=== PATIENT | male | born 1950 | race Caucasian/White ===

== ENCOUNTER → 2020-02-19 13:10 | Outpatient (BNVA) | payer MEDICARE, MEDICAID, SELFPAY | PROVIDERS: PCP Emergency Medicine; Referring Provider Emergency Medicine; Visit Provider Nurse Practitioner Gerontology | DX: E11.65 Type 2 diabetes mellitus with hyperglycemia (principal); E11.21 Type 2 diabetes mellitus with diabetic nephropathy; E11.42 Type 2 diabetes mellitus with diabetic polyneuropathy; I10 Essential (primary) hypertension; E78.5 Hyperlipidemia, unspecified; Z79.4 Long term (current) use of insulin | CPT/HCPCS: 82947; 99212 ==

== ENCOUNTER → 2020-03-25 13:01 | Outpatient (BNVA) | payer MEDICARE, MEDICAID, SELFPAY | PROVIDERS: PCP Emergency Medicine; Referring Provider Emergency Medicine; Visit Provider Nurse Practitioner Gerontology | DX: E11.65 Type 2 diabetes mellitus with hyperglycemia (principal); E11.21 Type 2 diabetes mellitus with diabetic nephropathy; E11.42 Type 2 diabetes mellitus with diabetic polyneuropathy; E78.5 Hyperlipidemia, unspecified; I10 Essential (primary) hypertension | CPT/HCPCS: 82947; Q3014 ==

== ENCOUNTER → 2020-04-28 12:41 | Outpatient (BNVA) | payer MEDICARE, MEDICAID, SELFPAY | PROVIDERS: PCP Emergency Medicine; Visit Provider Nurse Practitioner Gerontology | DX: E11.65 Type 2 diabetes mellitus with hyperglycemia (principal); E11.21 Type 2 diabetes mellitus with diabetic nephropathy; E11.42 Type 2 diabetes mellitus with diabetic polyneuropathy; Z79.4 Long term (current) use of insulin; E78.5 Hyperlipidemia, unspecified; I10 Essential (primary) hypertension | CPT/HCPCS: 82947; Q3014 ==

== ENCOUNTER 2020-05-13 11:56 | Emergency (ER) | payer MEDICARE, MEDICAID, SELFPAY ==
[2020-05-13 12:31] VITALS: BP 83/49; PULSE 97; RESP 16; TEMP 37; O2SAT 98; BMI 26.4
--- NOTE | 2020-05-13 12:33 | ED.GENADULT ---
HPI - General Adult General Chief complaint: Nausea/Vomiting/Diarrhea <Gretel Seals NP - Last Filed: 05/13/20 12:37> Stated complaint: diarrhea <Gretel Seals NP - Last Filed: 05/13/20 12:37> Time Seen by Provider: 05/13/20 12:33 <Gretel Seals NP - Last Filed: 05/13/20 12:37> Source: patient <Fantasma Levin MD - Last Filed: 05/13/20 16:42> Mode of arrival: ambulatory <Fantasma Levin MD - Last Filed: 05/13/20 16:42> History of Present Illness HPI narrative: diarrhea with dark stools. 4 months ago he had endoscopy and colonoscopy with no active bleeding. Patient has a history of cirrhosis with ascites. Patient had a recent change in medications. <Fantasma Levin MD - Last Filed: 05/13/20 16:42> Onset (ago): week(s) <Fantasma Levin MD - Last Filed: 05/13/20 16:42> Related Data Home medications: Home Medications Medication Instructions Recorded Confirmed ascorbic acid (vitamin C) 500 mg 500 mg PO QAM 02/19/20 04/28/20 tablet aspirin 81 mg tablet,delayed 81 mg PO BEDTIME 02/19/20 04/28/20 release blood sugar diagnostic #10 ea 02/19/20 04/28/20 cholecalciferol (vitamin D3) 50 50 mcg PO QAM 02/19/20 04/28/20 mcg (2,000 unit) tablet empagliflozin 25 mg tablet 25 mg PO DAILY 02/19/20 04/28/20 ferrous sulfate 325 mg (65 mg 325 mg PO QAM 02/19/20 04/28/20 iron) tablet hydrocodone 5 mg-acetaminophen 325 1 tab PO Q8H PRN 02/19/20 04/28/20 mg tablet lancets 33 gauge #100 ea 02/19/20 04/28/20 lisinopril 20 1 tab PO QAM 02/19/20 04/28/20 mg-hydrochlorothiazide 25 mg tablet omeprazole 20 mg capsule,delayed 20 mg PO DAILY 02/19/20 04/28/20 release pen needle, diabetic 32 gauge x #50 ea 02/19/20 04/28/20 tamsulosin 0.4 mg capsule 0.4 mg PO DAILY 02/19/20 04/28/20 atorvastatin 40 mg tablet 40 mg PO tab 03/25/20 04/28/20 gabapentin 300 mg capsule 300 mg PO cap 04/28/20 04/28/20 pen needle, diabetic 31 gauge x #1200 ea 04/28/20 04/28/2009/07 Previous Rx's Medication Instructions Recorded blood-glucose meter #1 ea 02/19/20 pen needle, diabetic 32 gauge x #120 ea 04/30/20 insulin aspart U-100 100 unit/mL 4 unit SUBCUT TID 30 Days #15 ml 05/12/20 (3 mL) subcutaneous pen insulin glargine 100 unit/mL (3 12 unit SUBCUT DAILY 90 Days #15 ml 05/12/20 mL) subcutaneous pen <Gretel Seals NP - Last Filed: 05/13/20 12:37> Allergies/adverse reactions: Allergies Allergy/AdvReac Type Severity Reaction Status Date / Time No Known Allergies Allergy Verified 04/28/20 13:03 <Gretel Seals NP - Last Filed: 05/13/20 12:37> Review of Systems Constitutional: Constitutional: Reports no additional constitutional complaints <Fantasma Levin MD - Last Filed: 05/13/20 16:42> Eyes: Eyes: Reports no additional eye complaints <Fantasma Levin MD - Last Filed: 05/13/20 16:42> ENT: Denies dizziness <Fantasma Levin MD - Last Filed: 05/13/20 16:42> Cardiovascular: Cardiovascular: Reports no additional cardiovascular complaints <Fantasma Levin MD - Last Filed: 05/13/20 16:42> Respiratory: Respiratory: Reports as per HPI <Fantasma Levin MD - Last Filed: 05/13/20 16:42> Gastrointestinal: Gastrointestinal: Reports no additional gastrointestinal complaints <Fantasma Levin MD - Last Filed: 05/13/20 16:42> Musculoskeletal: Musculoskeletal: Reports no additional musculoskeletal complaints <Fantasma Levin MD - Last Filed: 05/13/20 16:42> Integumentary/Breasts: Skin/Breast: Denies rash <Fantasma Levin MD - Last Filed: 05/13/20 16:42> Neurologic: Reports system reviewed and no additional complaints, except as documented, Denies dizziness and Denies Sensory deficit (Neuro) <Fantasma Levin MD - Last Filed: 05/13/20 16:42> Psychiatric: Psychiatric: Denies anxiety <Fantasma Levin MD - Last Filed: 05/13/20 16:42> PMFSH Past Medical History Medical History: Medical History Essential hypertension GERD (gastroesophageal reflux disease) Hyperlipidemia LDL goal <100 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 Type 2 diabetes mellitus with hyperglycemia <Gretel Seals NP - Last Filed: 05/13/20 12:37> Surgical History: Surgical History History of liver biopsy <Gretel Seals NP - Last Filed: 05/13/20 12:37> Family History Family History: Family History Father Diabetes Mother Breast cancer Diabetes Cardiovascular disease Brother Diabetes Sister Diabetes <Gretel Seals NP - Last Filed: 05/13/20 12:37> Social History Social History: Social History (Updated 02/18/20 @ 09:58 by eHnrik Adames) Alcohol intake: never Smoking Status: Former smoker Smoked in Last 30 Days: No Use of substances other than those prescribed or required for medical reasons: No Advance Directives: No Advance Directives Information Provided: No <Gretel Seals NP - Last Filed: 05/13/20 12:37> Physical Exam Vital Signs: Vital Signs: Last Vital Signs Temp 98.6 F 05/13/20 12:31 Pulse 87 05/13/20 15:07 Resp 14 05/13/20 15:07 BP 102/57 L 05/13/20 15:07 Pulse Ox 97 05/13/20 15:07 Body Mass Index 26.4 <rGetel Seals NP - Last Filed: 05/13/20 12:37> Vital Signs: Last Vital Signs Temp 98.6 F 05/13/20 12:31 Pulse 87 05/13/20 15:07 Resp 14 05/13/20 15:07 BP 102/57 L 05/13/20 15:07 Pulse Ox 97 05/13/20 15:07 Body Mass Index 26.4 <Fantasma Levin MD - Last Filed: 05/13/20 16:42> Const: Other: male chronically ill, thin extremities with distended abdomen <Fantasma Levin MD - Last Filed: 05/13/20 16:42> Orientation/consciousness: oriented to person and patient oriented x3 <Fantasma Levin MD - Last Filed: 05/13/20 16:42> Limitations: no limitations <Fantasma Levin MD - Last Filed: 05/13/20 16:42> HENMT: Head: Yes normal to inspection <Fantasma Levin MD - Last Filed: 05/13/20 16:42> Ears: external ears normal <Fantasma Levin MD - Last Filed: 05/13/20 16:42> General nose exam: Normal external nose present <Fantasma Levin MD - Last Filed: 05/13/20 16:42> Mouth: Normal oral and palatal mucosa present and oropharynx normal <Fantasma Levin MD - Last Filed: 05/13/20 16:42> Throat: Yes posterior oropharynx normal <Fantasma Levin MD - Last Filed: 05/13/20 16:42> Eyes: General: appearance normal, both eyes and all related structures <Fantasma Levin MD - Last Filed: 05/13/20 16:42> Neck: Other: supple <Fantasma Levin MD - Last Filed: 05/13/20 16:42> Neck: Yes normal visual inspection <Fantasma Levin MD - Last Filed: 05/13/20 16:42> Chest: Chest palpation & inspection: normal inspection of the chest <Fantasma Levin MD - Last Filed: 05/13/20 16:42> Resp: Auscultation: clear to auscultation bilaterally <Fantasma Levin MD - Last Filed: 05/13/20 16:42> Cardio: Jugular venous distension: no JVD <Fantasma Levin MD - Last Filed: 05/13/20 16:42> Rate: regular rate <Fantasma Levin MD - Last Filed: 05/13/20 16:42> Rhythm: regular rhythm <Fnatasma Levin MD - Last Filed: 05/13/20 16:42> Heart sounds: S1 normal heart sound present and S2 normal heart sound present <Fantasma Levin MD - Last Filed: 05/13/20 16:42> GI: Other: distended abdomen with ascities <Fantasma Levin MD - Last Filed: 05/13/20 16:42> Palpation (GI): Soft to palpation, nontender and No hepatosplenomegaly present <Fantasma Levin MD - Last Filed: 05/13/20 16:42> Auscultation: normal bowel sounds <Fantasma Levin MD - Last Filed: 05/13/20 16:42> : General: Yes no CVA tenderness <Fantasma Levin MD - Last Filed: 05/13/20 16:42> Back/Spine/Pelvis: Back: no CVA tenderness <Fantasma Levin MD - Last Filed: 05/13/20 16:42> Skin: Other: spider angiomata with erythema <Fantasma Levin MD - Last Filed: 05/13/20 16:42> Neuro: General: oriented to person and patient oriented x3 <Fantasma Levin MD - Last Filed: 05/13/20 16:42> Cranial nerves: Yes CN's II-XII intact bilaterally <Fantasma Levin MD - Last Filed: 05/13/20 16:42> Motor exam (neuro): 5/5 motor strength present throughout <Fantasma Levin MD - Last Filed: 05/13/20 16:42> Sensory Exam: No Sensory deficit (Neuro) <Fantasma Levin MD - Last Filed: 05/13/20 16:42> Extrem: General: Yes normal to inspection <Fantasma Levin MD - Last Filed: 05/13/20 16:42> Psych: Appearance: grossly normal <Fantasma Levin MD - Last Filed: 05/13/20 16:42> Course Course Course Narrative: 1230-This is a rapid medical exam. 70 yo male with past medical history of DM, HLD, HTN here with diarrhea x 6 months. Feeling weak and dizzy, had near syncopal episode yesterday. Having 3-4 episodes a day. Diarrhea associated with abdominal pain, black stools. On iron tabs. Will check labs, EKG, type and screen. Deferred additional HPI, ROS, PE until seen by primary provider. <Gretel Seals NP - Last Filed: 05/13/20 12:37> spoke with endocrinology clinic who wanted the patient to have some hydration and insulin <Fantasma Levin MD - Last Filed: 05/13/20 16:42> Medical Decision Making [facility] Narrative Medical decision making narrative: patient with diarrhea now improved, slight dehydration by renal numbers and hyperglycemia, IV hydration and insulin given <Fantasma Levin MD - Last Filed: 05/13/20 16:42> Lab Data Result diagrams: : 05/13/20 13:08 05/13/20 13:08 <Gretel Seals NP - Last Filed: 05/13/20 12:37> Labs: Lab Results 05/13/20 05/13/20 05/13/20 Range/Units 13:08 13:08 13:08 WBC 7.6 (4.8-10.8) X10*3/uL RBC 3.00 L (4.60-5.80) X10*6/uL Hgb 8.2 L (14.0-18.0) g/dl Hct 26.4 L (42-52) % MCV 88.0 (80-98) fL MCH 27.3 (27.0-33.0) pg MCHC 31.1 (31.0-36.0) g/dl RDW 18.5 H (11.0-16.0) % Plt Count 395 (160-400) X10*3/uL MPV 10.2 (9.4-12.4) fL Immature Gran % (Auto) 0.4 (0.0-0.4) % Neut % (Auto) 78.1 H (45-73) % Lymph % (Auto) 13.0 L (20-40) % [place] % (Auto) 6.3 (2-11) % Eos % (Auto) 1.8 (0-4) % Baso % (Auto) 0.4 (0-2) % Lymph # (Auto) 1.0 L (1.2-4.9) X10*3/uL [place] # (Auto) 0.5 (0.1-1.2) X10*3/uL Eos # (Auto) 0.1 (0.0-0.4) X10*3/uL Baso # (Auto) 0.0 (0.0-0.2) X10*3/uL Abs Immat Gran (auto) 0.03 (0.00-0.03) X10*3/uL Absolute Neuts (auto) 5.9 (2.0-8.3) X10*3/uL Absolute Nucleated RBC 0.000 (0.0-0.012) X10*3/uL Nucleated RBC % (auto) 0.0 (0.0-0.2) /100WBC PT 13.1 H (10.8-13.0) SEC INR 1.1 (0.9-1.1) Sodium 136 (135-145) mmol/L Potassium 5.4 H (3.3-5.1) mmol/l Chloride 104 (96-108) mmol/L Carbon Dioxide 21 L (22-29) mmol/L Anion Gap 16 (12-20) BUN 36 H (9-16) mg/dL Creatinine 1.44 H (0.5-1.4) mg/dL Estim Creat Clear Calc 41.1 Estimated GFR 49 Random Glucose 301 H (60-115) mg/dL Calcium 8.9 (8.4-10.2) mg/dL Magnesium 2.6 (1.6-2.6) mg/dL Total Bilirubin 0.7 (0.0-1.0) mg/dL Direct Bilirubin 0.5 (0.0-0.5) mg/dL AST 103 H (5-37) U/L ALT 61 H (0-40) U/L Alkaline Phosphatase 729 H (39-117) U/L Total Protein 7.4 (6.5-8.0) g/dL Albumin 3.3 L (3.5-5.0) g/dL Blood Type Antibody Screen 05/13/20 Range/Units 13:08 WBC (4.8-10.8) X10*3/uL RBC (4.60-5.80) X10*6/uL Hgb (14.0-18.0) g/dl Hct (42-52) % MCV (80-98) fL MCH (27.0-33.0) pg MCHC (31.0-36.0) g/dl RDW (11.0-16.0) % Plt Count (160-400) X10*3/uL MPV (9.4-12.4) fL Immature Gran % (Auto) (0.0-0.4) % Neut % (Auto) (45-73) % Lymph % (Auto) (20-40) % [place] % (Auto) (2-11) % Eos % (Auto) (0-4) % Baso % (Auto) (0-2) % Lymph # (Auto) (1.2-4.9) X10*3/uL [place] # (Auto) (0.1-1.2) X10*3/uL Eos # (Auto) (0.0-0.4) X10*3/uL Baso # (Auto) (0.0-0.2) X10*3/uL Abs Immat Gran (auto) (0.00-0.03) X10*3/uL Absolute Neuts (auto) (2.0-8.3) X10*3/uL Absolute Nucleated RBC (0.0-0.012) X10*3/uL Nucleated RBC % (auto) (0.0-0.2) /100WBC PT (10.8-13.0) SEC INR (0.9-1.1) Sodium (135-145) mmol/L Potassium (3.3-5.1) mmol/l Chloride (96-108) mmol/L Carbon Dioxide (22-29) mmol/L Anion Gap (12-20) BUN (9-16) mg/dL Creatinine (0.5-1.4) mg/dL Estim Creat Clear Calc Estimated GFR Random Glucose (60-115) mg/dL Calcium (8.4-10.2) mg/dL Magnesium (1.6-2.6) mg/dL Total Bilirubin (0.0-1.0) mg/dL Direct Bilirubin (0.0-0.5) mg/dL AST (5-37) U/L ALT (0-40) U/L Alkaline Phosphatase (39-117) U/L Total Protein (6.5-8.0) g/dL Albumin (3.5-5.0) g/dL Blood Type O Positive Antibody Screen NEGATIVE <Gretel Seals NP - Last Filed: 05/13/20 12:37> Lab Results 05/13/20 05/13/20 05/13/20 Range/Units 13:08 13:08 13:08 WBC 7.6 (4.8-10.8) X10*3/uL RBC 3.00 L (4.60-5.80) X10*6/uL Hgb 8.2 L (14.0-18.0) g/dl Hct 26.4 L (42-52) % MCV 88.0 (80-98) fL MCH 27.3 (27.0-33.0) pg MCHC 31.1 (31.0-36.0) g/dl RDW 18.5 H (11.0-16.0) % Plt Count 395 (160-400) X10*3/uL MPV 10.2 (9.4-12.4) fL Immature Gran % (Auto) 0.4 (0.0-0.4) % Neut % (Auto) 78.1 H (45-73) % Lymph % (Auto) 13.0 L (20-40) % [place] % (Auto) 6.3 (2-11) % Eos % (Auto) 1.8 (0-4) % Baso % (Auto) 0.4 (0-2) % Lymph # (Auto) 1.0 L (1.2-4.9) X10*3/uL [place] # (Auto) 0.5 (0.1-1.2) X10*3/uL Eos # (Auto) 0.1 (0.0-0.4) X10*3/uL Baso # (Auto) 0.0 (0.0-0.2) X10*3/uL Abs Immat Gran (auto) 0.03 (0.00-0.03) X10*3/uL Absolute Neuts (auto) 5.9 (2.0-8.3) X10*3/uL Absolute Nucleated RBC 0.000 (0.0-0.012) X10*3/uL Nucleated RBC % (auto) 0.0 (0.0-0.2) /100WBC PT 13.1 H (10.8-13.0) SEC INR 1.1 (0.9-1.1) Sodium 136 (135-145) mmol/L Potassium 5.4 H (3.3-5.1) mmol/l Chloride 104 (96-108) mmol/L Carbon Dioxide 21 L (22-29) mmol/L Anion Gap 16 (12-20) BUN 36 H (9-16) mg/dL Creatinine 1.44 H (0.5-1.4) mg/dL Estim Creat Clear Calc 41.1 Estimated GFR 49 Random Glucose 301 H (60-115) mg/dL Calcium 8.9 (8.4-10.2) mg/dL Magnesium 2.6 (1.6-2.6) mg/dL Total Bilirubin 0.7 (0.0-1.0) mg/dL Direct Bilirubin 0.5 (0.0-0.5) mg/dL AST 103 H (5-37) U/L ALT 61 H (0-40) U/L Alkaline Phosphatase 729 H (39-117) U/L Total Protein 7.4 (6.5-8.0) g/dL Albumin 3.3 L (3.5-5.0) g/dL Blood Type Antibody Screen 05/13/20 Range/Units 13:08 WBC (4.8-10.8) X10*3/uL RBC (4.60-5.80) X10*6/uL Hgb (14.0-18.0) g/dl Hct (42-52) % MCV (80-98) fL MCH (27.0-33.0) pg MCHC (31.0-36.0) g/dl RDW (11.0-16.0) % Plt Count (160-400) X10*3/uL MPV (9.4-12.4) fL Immature Gran % (Auto) (0.0-0.4) % Neut % (Auto) (45-73) % Lymph % (Auto) (20-40) % [place] % (Auto) (2-11) % Eos % (Auto) (0-4) % Baso % (Auto) (0-2) % Lymph # (Auto) (1.2-4.9) X10*3/uL [place] # (Auto) (0.1-1.2) X10*3/uL Eos # (Auto) (0.0-0.4) X10*3/uL Baso # (Auto) (0.0-0.2) X10*3/uL Abs Immat Gran (auto) (0.00-0.03) X10*3/uL Absolute Neuts (auto) (2.0-8.3) X10*3/uL Absolute Nucleated RBC (0.0-0.012) X10*3/uL Nucleated RBC % (auto) (0.0-0.2) /100WBC PT (10.8-13.0) SEC INR (0.9-1.1) Sodium (135-145) mmol/L Potassium (3.3-5.1) mmol/l Chloride (96-108) mmol/L Carbon Dioxide (22-29) mmol/L Anion Gap (12-20) BUN (9-16) mg/dL Creatinine (0.5-1.4) mg/dL Estim Creat Clear Calc Estimated GFR Random Glucose (60-115) mg/dL Calcium (8.4-10.2) mg/dL Magnesium (1.6-2.6) mg/dL Total Bilirubin (0.0-1.0) mg/dL Direct Bilirubin (0.0-0.5) mg/dL AST (5-37) U/L ALT (0-40) U/L Alkaline Phosphatase (39-117) U/L Total Protein (6.5-8.0) g/dL Albumin (3.5-5.0) g/dL Blood Type O Positive Antibody Screen NEGATIVE <Fantasma Levin MD - Last Filed: 05/13/20 16:42> Discharge Plan Discharge Clinical Impression: Dehydration Type 2 diabetes mellitus with hyperglycemia Qualifiers: Diabetes mellitus correction insulin use: with correction use Qualified Code(s): E11.65 - Type 2 diabetes mellitus with hyperglycemia <Gretel Seals NP - Last Filed: 05/13/20 12:37> Patient Disposition: Home, Self-Care <Gretel Seals NP - Last Filed: 05/13/20 12:37> Instructions: Dehydration (ED), Diabetic Hyperglycemia (ED) <Gretel Seals NP - Last Filed: 05/13/20 12:37> Prescriptions: No Action (DME) pen needle, diabetic [BD Ultra-Fine Gerri Pen Needle] 32 gauge x 5/32 needle See Rx Instructions .ROUTE .MEDSUPPLY Qty: 120 RF: 3 insulin aspart U-100 [Novolog Flexpen U-100 Insulin] 100 unit/mL (3 mL) insulin pen 4 unit subcut TID 30 Days Qty: 15 RF: 2 insulin glargine 100 unit/mL (3 mL) insulin pen 12 unit subcut DAILY 90 Days Qty: 15 RF: 2 Jardiance 25 mg tablet 25 mg PO DAILY RF: 0 (DME) pen needle, diabetic 32 gauge x 5/32 needle See Rx Instructions ea .ROUTE .MEDSUPPLY Qty: 50 RF: 0 (DME) FreeStyle Lite Strips Strip See Rx Instructions ea Not Applicable .MEDSUPPLY Qty: 10 RF: 0 ferrous sulfate 325 mg (65 mg iron) tablet 325 mg PO QAM RF: 0 (DME) lancets 33 gauge misc See Rx Instructions ea Not Applicable .MEDSUPPLY Qty: 100 RF: 0 cholecalciferol (vitamin D3) 50 mcg (2,000 unit) tablet 50 mcg PO QAM RF: 0 lisinopril-hydrochlorothiazide 20-25 mg tablet 1 tab PO QAM RF: 0 omeprazole 20 mg capsule,delayed release(DR/EC) 20 mg PO DAILY RF: 0 tamsulosin 0.4 mg capsule 0.4 mg PO DAILY RF: 0 ascorbic acid (vitamin C) 500 mg tablet 500 mg PO QAM RF: 0 aspirin 81 mg tablet,delayed release (DR/EC) 81 mg PO BEDTIME RF: 0 hydrocodone-acetaminophen 5-325 mg tablet 1 tab PO Q8H PRN (Reason: pain) RF: 0 (DME) blood-glucose meter [FreeStyle Lite Meter] Kit See Rx Instructions .ROUTE .MEDSUPPLY Qty: 1 RF: 0 atorvastatin 40 mg tablet 40 mg PO RF: 0 gabapentin 300 mg capsule 300 mg PO RF: 0 (DME) pen needle, diabetic 31 gauge x 5/16 needle See Rx Instructions ea .ROUTE DAILY Qty: 1200 RF: 0 <Gretel Seals NP - Last Filed: 05/13/20 12:37> Referrals: Talia Hirsch, CAMILO-[facility] [Nurse Practitioner] - 2 days <Gretel Seals NP - Last Filed: 05/13/20 12:37>
--- NOTE | 2020-05-13 12:38 | ECG_ITS ---
Test Reason : SOB Blood Pressure : / mmHG Vent. Rate : 087 BPM Atrial Rate : 087 BPM P-R Int : 158 ms QRS Dur : 080 ms QT Int : 368 ms P-R-T Axes : 039 025 060 degrees QTc Int : 442 ms Normal sinus rhythm Normal ECG No previous ECGs available Referred By: Gretel Seals Electronically Signed By:DAVID CURTIS
[2020-05-13 13:14] LABS: MANUAL DIFF FLAG NO
[2020-05-13 13:17] LABS: Basophils Percent Auto 0.4 % (0-2); Eosinophils Absolute Auto 0.1 X10*3/uL (0.0-0.4); Eosinophils Percent Auto 1.8 % (0-4); Hematocrit 26.4 % (42-52); Hemoglobin 8.2 g/dl (14.0-18.0); Imm Gran Abs Auto 0.03 X10*3/uL (0.00-0.03); Imm Gran Pct Auto 0.4 % (0.0-0.4); Mean Corpuscular HGB Conc 31.1 g/dl (31.0-36.0); Mean Corpuscular Hemoglobin 27.3 pg (27.0-33.0); Mean Platelet Volume 10.2 fL (9.4-12.4); Monocytes Absolute Auto 0.5 X10*3/uL (0.1-1.2); Monocytes Percent Auto 6.3 % (2-11); Neutrophils Absolute Auto 5.9 X10*3/uL (2.0-8.3); Neutrophils Percent Auto 78.1 % (45-73); Platelet Count 395 X10*3/uL (160-400); Red Cell Distribution Width 18.5 % (11.0-16.0); White Blood Count 7.6 X10*3/uL (4.8-10.8)
[2020-05-13 13:25] LABS: INTERNATIONAL NORM RATIO 1.1 (0.9-1.1); Prothrombin Time 13.1 SEC (10.8-13.0)
[2020-05-13 13:51] LABS: Alanine Aminotransferase 61 U/L (0-40); Albumin Level 3.3 g/dL (3.5-5.0); Alkaline Phosphatase 729 U/L (39-117); Anion Gap 16 (12-20); Aspartate Amino Transferase 103 U/L (5-37); Bilirubin Direct 0.5 mg/dL (0.0-0.5); Bilirubin Total 0.7 mg/dL (0.0-1.0); Blood Urea Nitrogen 36 mg/dL (9-16); Calcium 8.9 mg/dL (8.4-10.2); Carbon Dioxide 21 mmol/L (22-29); Chloride 104 mmol/L (96-108); Creatinine Clr Calc Pharmacy 41.1; Estimated Glomerular Filt Rate 49; Glucose Random 301 mg/dL (60-115); Magnesium 2.6 mg/dL (1.6-2.6); Potassium 5.4 mmol/l (3.3-5.1); Sodium 136 mmol/L (135-145); Total Protein 7.4 g/dL (6.5-8.0)
[2020-05-13 15:07] VITALS: BP 102/57; PULSE 87; RESP 14; O2SAT 97
[2020-05-13] MEDS: Insulin Regular, Human 100 UNIT/ML 3 ML VIAL 6 UNIT SUBCUT (16:07)
[2020-05-13] MEDS: 0.9 % Sodium Chloride 1,000 ML 999 ML IVCONT (16:07)
== END 2020-05-13 17:10 | disposition home or self-care (01) ==
PROVIDERS: Nurse Practitioner Family; Emergency Provider Emergency Medicine
DX: E86.0 Dehydration (principal); E11.65 Type 2 diabetes mellitus with hyperglycemia; Z79.4 Long term (current) use of insulin; I10 Essential (primary) hypertension
CPT/HCPCS: 36415; 80048; 80076; 83735; 85025; 85610; 86850; 86900; 86901; 93005; 96360; 99284

== ENCOUNTER → 2020-05-16 09:30 | Outpatient (BNVA) | payer MEDICARE, MEDICAID, SELFPAY | PROVIDERS: Visit Provider Nurse Practitioner Gerontology | DX: Z76.89 Persons encountering health services in other specified circumstances (principal) | CPT/HCPCS: Q3014 ==

== ENCOUNTER → 2020-05-26 08:52 | Outpatient (BNVA) | payer MEDICARE, MEDICAID, SELFPAY | PROVIDERS: Visit Provider Nurse Practitioner Gerontology | DX: Z13.89 Encounter for screening for other disorder (principal) | CPT/HCPCS: Q3014 ==

== ENCOUNTER 2020-06-09 10:33 | Outpatient (REF) | payer MEDICARE, MEDICAID, SELFPAY ==
--- NOTE | ~2020-06-09 | US_ITS ---
EXAMINATION: US ABDOMEN LIMITED WITH LIVER ELASTOGRAPHY CLINICAL INFORMATION: Cirrhosis COMPARISON: Previous abdominal ultrasound November 2019 TECHNIQUE: Real-time imaging of the abdominal viscera. Noninvasive ultrasound liver fibrosis assessment is performed using Rodriguez ElastPQ point quantification shear wave elastography (pSWE) with a C5-2 MHz transducer. Multiple elastography samples are obtained. FINDINGS: PANCREAS: Normal. . LIVER: Liver is heterogeneous in echotexture. The liver contour to the liver is scalloped suggestive of cirrhosis. No focal liver lesion or biliary duct dilatation is seen. The right lobe measures 21 cm in length. The left lobe measures 15 cm in length. Portal flow is reversed/hepatofugal. There is hepatofugal flow seen in the extrahepatic portal vein, the main and right and left renal portal veins. Thrombus is seen in the portal splenic confluence/main portal vein and left portal vein. There is hepatofugal flow seen in the splenic vein. The spleen measures 8.3 cm in length. The middle right and left hepatic veins are patent with appropriate waveform. There is somewhat dampened flow in the IVC with loss of respiratory variation. The hepatic artery is not well visualized. Shear wave liver elastography median stiffness is 1.1 m/s (reference: normal median stiffness is 1.3 m/s or less). IQR/median stiffness to assess sampling precision is 1.8 (reference: good quality data set is IQR/median stiffness of 0.15 or less). Exam is nondiagnostic due to sampling error. GALLBLADDER: The gallbladder is contracted. The gallbladder wall is thickened measuring 4 mm. There are gallstones in the gallbladder. COMMON BILE DUCT: Normal in caliber measuring 0.4 cm in diameter. RIGHT KIDNEY: Normal. No hydronephrosis. No renal calculi or focal parenchymal lesions. The kidney measures 12 cm in maximum dimension. FREE FLUID: There is a small amount of ascites. US/US abdomen longoria w elastography IMPRESSION: 1. Impression: Cirrhotic-appearing liver. Thrombus seen in the left portal vein and main portal vein near the portal splenic confluence. Reversed hepatofugal flow seen in the portal veins and splenic vein. Small amount of ascites. Thickened gallbladder wall. This may be related to liver disease. Gallstones. 2. Liver elastography: Nondiagnostic due to sampling error.
[2020-06-09 12:53] LABS: Alanine Aminotransferase 67 U/L (0-40); Albumin Level 3.6 g/dL (3.5-5.0); Alkaline Phosphatase 749 U/L (39-117); Anion Gap 16 (12-20); Aspartate Amino Transferase 114 U/L (5-37); Bilirubin Total 0.7 mg/dL (0.0-1.0); Blood Urea Nitrogen 62 mg/dL (9-16); Calcium 9.3 mg/dL (8.4-10.2); Carbon Dioxide 17 mmol/L (22-29); Chloride 112 mmol/L (96-108); Cholesterol 204 mg/dL; Estimated Glomerular Filt Rate 43; Glucose Fasting 131 mg/dL (60-99); HDL Cholesterol 31 mg/dL; LDL Cholesterol Calculated 139 mg/dl; Potassium 5.5 mmol/L (3.3-5.1); Sodium 139 mmol/L (135-145); Total Protein 7.9 g/dL (6.5-8.0); Triglycerides 173 mg/dL
[2020-06-09 12:59] LABS: Creatinine Urine 164.13 mg/dL
== END 2020-06-09 10:34 | disposition home or self-care (01) ==
LOC: HO.US 10:33
PROVIDERS: Absent Provider Nurse Practitioner Gerontology; Visit Provider Physician Assistant
DX: K74.60 Unspecified cirrhosis of liver (principal); E11.9 Type 2 diabetes mellitus without complications; Z79.4 Long term (current) use of insulin
CPT/HCPCS: 36415; 76705; 76981; 80053; 80061; 82043

== ENCOUNTER 2020-06-13 22:26 | Inpatient (IN) | payer MEDICARE, MEDICAID, SELFPAY ==
--- NOTE | ~2020-06-13 | US_ITS ---
EXAMINATION: PARACENTESIS CLINICAL INFORMATION: Ascites COMPARISON: June 18, 2020. TECHNIQUE: Ultrasound-guided paracentesis FINDINGS: Informed consent was obtained from the patient prior to the procedure. During this process, the procedure and potential alternatives were explained, along with the intended outcome and benefits. The risks of the procedure, as well as the risk of not doing the procedure, were discussed. The patient was given the opportunity to ask questions regarding the procedure and appeared competent to make medical decisions. A signed consent form which documents this discussion was placed in the medical record. Using sterile technique and ultrasound guidance a 5 [place] needle sheath was directed into the right peritoneal cavity after checking for localization of the inferior epigastric vessels. A total of 3.5 L of clear yellow fluid was removed without difficulty. US/US paracentesis abd w/image IMPRESSION: Paracentesis with removal of 3.5 L of clear yellow fluid.
--- NOTE | ~2020-06-13 | CT_ITS ---
EXAMINATION: CT ABDOMEN AND PELVIS WITHOUT CONTRAST CLINICAL INFORMATION: Diffuse abdominal pain, worse at the right upper quadrant. Known left portal thrombus. COMPARISON: Ultrasound 06/09/2020 TECHNIQUE: Multidetector volumetric imaging was performed from the superior aspect of the liver through the pubic symphysis. Sagittal and coronal reformatted images were obtained on the technologist's workstation. This CT examination was performed using dose optimization techniques as appropriate, variously including the following: *Automated exposure control *Adjustment of mA and/or kV according to patient size (this includes techniques or standardized protocols for targeted exams where dose is matched to indication/reason for exam; i.e. extremities or head) *Use of iterative reconstruction technique DLP: 465 mGy-cm FINDINGS: LUNG BASES: The visualized lung bases are unremarkable. LIVER, GALLBLADDER, AND BILIARY TREE: Nodular Contour of the liver. Normal size and attenuation. No focal liver lesion seen. Small volume of ascites. The gallbladder is unremarkable with no evidence of radiopaque gallstones, gallbladder wall thickening, or obvious pericholecystic inflammatory changes. PANCREAS: Mild atrophy with no focal lesion. Stranding is seen in the region of the pancreas. SPLEEN: Unremarkable. ADRENAL GLANDS: Unremarkable. KIDNEYS AND URETERS: The kidneys are normal in size, shape, and attenuation. No hydronephrosis or hydroureter. There is a calculus measuring 0.8 cm at the upper pole of the left kidney could be a cortical calcification rather than in the collecting system. This measures 920 Hounsfield units and is 4.5 cm from the posterior axillary line. No perinephric stranding. BLADDER: Unremarkable. GASTROINTESTINAL TRACT: Small hiatal hernia. The stomach is otherwise unremarkable. Normal caliber small bowel. No obstruction. No colonic wall thickening. No free air. Small volume ascites. ABDOMINAL WALL: No significant hernia is appreciated. LYMPH NODES: Normal. VASCULAR: Normal caliber aorta with mild atherosclerotic calcification. PELVIC VISCERA: The prostate and seminal vesicles are unremarkable. OSSEOUS STRUCTURES: No acute or suspicious osseous abnormality. Mild degenerative changes of the spine. Fused appearance at the T10 and T11 vertebral bodies with anterior wedging. CT/CT abdomen pelvis wo con IMPRESSION: Cirrhotic liver. Small volume ascites. Stranding is seen in the region of the pancreas. While this may be associated with the ascites, correlate for possibility of pancreatitis.
--- NOTE | ~2020-06-13 | US_ITS ---
EXAMINATION: US ABDOMEN LIMITED US SMA CLINICAL INFORMATION: Abdominal pain. COMPARISON: CT abdomen without contrast from 06/14/2020. Abdomen ultrasound from 06/09/2020. TECHNIQUE: Real-time imaging of the right upper quadrant abdominal viscera. Also, duplex Doppler imaging of the SMA performed. FINDINGS: PANCREAS: The atrophied pancreas is echogenic. No focal pancreatic lesion or pancreatic ductal dilatation. LIVER: The cirrhotic liver has slightly heterogeneous parenchymal echotexture and nodular, lobulated surface contour. No focal hepatic lesion or intrahepatic bile duct dilatation. Bidirectional flow is detected in the main portal vein. Again noted is echogenic thrombus involving the left portal vein. No thrombus detected in the right portal vein. Although Doppler flow is detected in the splenic vein, no flow is detected in the region of the splenic-portal vein confluence, as reported on 06/09/2020. GALLBLADDER: Gallbladder is underdistended and its wall is approximately 0.5 cm thick . No pericholecystic fluid. COMMON BILE DUCT: Normal in caliber measuring 0.4 cm in diameter. RIGHT KIDNEY: Normal. No hydronephrosis. No renal calculi or focal parenchymal lesions. The kidney measures 11.2 cm in maximum dimension. FREE FLUID: None. AORTA/VESSELS: Proximal to the origin of the SMA, abdominal aorta has normal flow with peak systolic velocity of 91 cm/sec. The visualized proximal celiac artery has a peak systolic velocity in the range of 172-252 cm/sec. The visualized proximal, mid and distal SMA have peak systolic velocities of 137, 89 and 225 cm/sec. US/US abdomen limited IMPRESSION: * Cirrhosis. * As noted on 06/09/2020, there is thrombosis involving left portal vein and region of confluence of the splenic and main portal vein. * No Doppler imaging evidence of a significant SMA stenosis. * Peak systolic velocities of the celiac artery are in the range of 172-252 cm/sec. 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
[2020-06-13 22:47] VITALS: BP 92/43; BP 93/49; PULSE 116; PULSE 117; RESP 15; TEMP 36.5; O2SAT 100; BMI 25.8
--- NOTE | 2020-06-13 22:55 | PC.NURSE ---
pt abd round distended pain to right flank per pt 5/10. abd soft tender to palpation, pt extremities cool to touch.
[2020-06-13 22:59] LABS: Glucose, Whole Blood 330 mg/dL (60-115)
--- NOTE | 2020-06-13 23:16 | ED_ITS ---
HPI - GI Bleed General Chief complaint: GI Bleed Stated complaint: RECTAL BLEED Time Seen by Provider: 06/13/20 23:00 Source: patient Mode of arrival: EMS Limitations: other (Poor historian) History of Present Illness HPI Narrative: Patient comes to emergency room complaining of diffuse abdominal pain and rectal bleeding. Patient is poor historian. Patient states that he had an endoscopy done a few months ago, and seems that recently he had rectal bleeding, went to [facility] approximately 2-3 weeks ago, was discharged. Patient reports rectal bleeding for 2-3 days, diffuse abdominal pain, nausea, denies diarrhea. EMS reported the patient complained of rectal bleeding starting today, patient states that he has had black stool arm for several months, states he has been red blood for several days. Unfortunately, patient is poor historian, his reported history keeps changing. Of note, patient had an upper endoscopy in October 2019, showing gastritis, duodenitis, small versus, colonoscopy on the same date showed hemorrhoids and polyps Liver elastography 06/09/20:Cirrhotic-appearing liver. Thrombus seen in the left portal vein and main portal vein near the portal splenic confluence. Reversed hepatofugal flow seen in the portal veins and splenic vein. Small amount of ascites. Thickened gallbladder wall. This may be related to liver disease. Gallstones. Related Data Home Medications Medication Instructions Recorded Confirmed ascorbic acid (vitamin C) 500 mg 500 mg PO QAM 02/19/20 05/26/20 tablet aspirin 81 mg tablet,delayed 81 mg PO BEDTIME 02/19/20 05/26/20 release blood sugar diagnostic #10 ea 02/19/20 05/26/20 cholecalciferol (vitamin D3) 50 50 mcg PO QAM 02/19/20 05/26/20 mcg (2,000 unit) tablet ferrous sulfate 325 mg (65 mg 325 mg PO QAM 02/19/20 05/26/20 iron) tablet hydrocodone 5 mg-acetaminophen 325 1 tab PO Q8H PRN 02/19/20 05/26/20 mg tablet lancets 33 gauge #100 ea 02/19/20 05/26/20 lisinopril 20 1 tab PO QAM 02/19/20 05/26/20 mg-hydrochlorothiazide 25 mg tablet omeprazole 20 mg capsule,delayed 20 mg PO DAILY 02/19/20 05/26/20 release pen needle, diabetic 32 gauge x #50 ea 02/19/20 05/26/20 tamsulosin 0.4 mg capsule 0.4 mg PO DAILY 02/19/20 05/26/20 atorvastatin 40 mg tablet 40 mg PO tab 03/25/20 05/26/20 gabapentin 300 mg capsule 300 mg PO cap 04/28/20 05/26/20 pen needle, diabetic 31 gauge x #1200 ea 04/28/20 05/26/2009/07 Previous Rx's Medication Instructions Recorded blood-glucose meter #1 ea 02/19/20 pen needle, diabetic 32 gauge x #120 ea 04/30/20 insulin glargine 100 unit/mL (3 8 unit SUBCUT DAILY 90 Days #15 ml 05/26/20 mL) subcutaneous pen insulin lispro 100 unit/mL 2 unit SUBCUT TID #15 ml 05/26/20 subcutaneous pen empagliflozin 25 mg tablet 25 mg PO QAM #30 tab 06/08/20 Allergies Allergy/AdvReac Type Severity Reaction Status Date / Time No Known Allergies Allergy Verified 05/26/20 10:49 Review of Systems Review of Systems: Constitutional : Complaining fatigue, malaise ENT/Mouth : No Hearing loss, No Ear Pain, No Nasal Congestion, No Sinus Pain, No Hoarseness, No sore throat, No Rhinorrhea, No Swallowing Difficulty Eyes: No Eye Pain, No Swelling, No Redness, No Foreign Body, No Discharge, No Vision Changes Cardiovascular : No Chest Pain, No SOB, No Dyspnea on Exertion, No Orthopnea, No Edema, No Palpitations Respiratory : No Cough, No Sputum, No Wheezing, No Smoke Exposure, No Dyspnea Gastrointestinal : Complaining of nausea, no vomiting, no diarrhea. Complaining of bright red blood per rectum. Genitourinary : no irregular bleeding, No Dysuria, No Urinary Frequency, No Hematuria, No Urinary Incontinence, No Urgency, No Flank Pain, No Urinary Flow Changes, No Hesitancy Musculoskeletal : No joint pain, No Myalgias, No Joint Swelling Skin : No Skin Lesions, No rash Neuro : No Weakness, No Numbness, No Paresthesias, No Loss of Consciousness, No Dizziness, No Headache Psych : No Anxiety/Panic, No Depression, No SI/HI/AH/VH, No Social Issues, Heme/Lymph: No Bruising, No Bleeding,No Lymphadenopathy Endocrine : No Polyuria, No Polydipsia, No Temperature Intolerance [facility] Past Medical History Medical History Essential hypertension GERD (gastroesophageal reflux disease) Hyperlipidemia LDL goal <100 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 Type 2 diabetes mellitus with hyperglycemia Surgical History History of liver biopsy Family History Family History Father Diabetes Mother Breast cancer Diabetes Cardiovascular disease Brother Diabetes Sister Diabetes Social History Social History (Updated 05/16/20 @ 09:31 by Henrik Adames [facility]) Household Members: Other Alcohol intake: never Smoking Status: Former smoker Advance Directives: No Physical Exam Vital Signs: Vital Signs: Last Vital Signs Temp 97.7 F 06/14/20 03:00 Pulse 110 H 06/14/20 03:00 Resp 16 06/14/20 03:00 BP 108/57 L 06/14/20 03:00 Pulse Ox 100 06/14/20 02:00 Body Mass Index 25.8 Appearance: Alert. Oriented X3. No acute distress. Eyes: Pupils equal, round and reactive to light. ENT: Pharynx normal. Neck: Normal inspection. Neck supple. No lymph nodes noted. No crepitus CVS: Tachycardic. Normal S1 and S2 Respiratory: No respiratory distress. Breath sounds normal. No Wheezing. No rales Abdomen: Soft , slightly distended, mild diffuse abdominal tenderness on deep palpation, most notably on right upper quadrant, black stool on ESTEFANI Skin: Skin warm and dry. Pale Extremities: No lower extremity edema. No lower extremity edema. No Lacerations . No Rash Neuro: Oriented X 3. No motor deficit. No sensory deficit. Moving all extermities. No slurred speech. Course Course Course Narrative: Patient's hemoglobin is 5.3. Patient states he has been transfused in the past. I discussed with the patient the benefits versus risks of blood transfusion, patient agrees to the transfusion. I discussed the patient with our hospitalist Dr. Sumner, patient being admitted. MDM - GI Bleed Lab Data Result diagrams: 06/14/20 01:43 06/14/20 01:43 Labs: Lab Results 06/13/20 06/14/20 06/14/20 Range/Units 22:54 00:10 00:10 WBC (4.8-10.8) X10*3/uL RBC (4.60-5.80) X10*6/uL Hgb (14.0-18.0) g/dl Hct (42-52) % MCV (80-98) fL MCH (27.0-33.0) pg MCHC (31.0-36.0) g/dl RDW (11.0-16.0) % Plt Count (160-400) X10*3/uL MPV (9.4-12.4) fL Immature Gran % (Auto) (0.0-0.4) % Neut % (Auto) (45-73) % Lymph % (Auto) (20-40) % [place] % (Auto) (2-11) % Eos % (Auto) (0-4) % Baso % (Auto) (0-2) % Lymph # (Auto) (1.2-4.9) X10*3/uL [place] # (Auto) (0.1-1.2) X10*3/uL Eos # (Auto) (0.0-0.4) X10*3/uL Baso # (Auto) (0.0-0.2) X10*3/uL Abs Immat Gran (auto) (0.00-0.03) X10*3/uL Absolute Neuts (auto) (2.0-8.3) X10*3/uL Absolute Nucleated RBC (0.0-0.012) X10*3/uL Nucleated RBC % (auto) (0.0-0.2) /100WBC PT (10.8-13.0) SEC INR (0.9-1.1) VBG pH (7.32-7.43) VBG pCO2 mmHg VBG pO2 mmHg VBG HCO3 mmol/L VBG O2 Saturation % VBG Base Excess mmol/L Sodium (135-145) mmol/L Potassium (3.3-5.1) mmol/L Chloride (96-108) mmol/L Carbon Dioxide (22-29) mmol/L Anion Gap (12-20) BUN (9-16) mg/dL Creatinine (0.5-1.4) mg/dL Estim Creat Clear Calc Estimated GFR POC Glucose 330 H (60-115) mg/dL Random Glucose (60-115) mg/dL Calcium (8.4-10.2) mg/dL Total Bilirubin (0.0-1.0) mg/dL Direct Bilirubin (0.0-0.5) mg/dL AST (5-37) U/L ALT (0-40) U/L Alkaline Phosphatase (39-117) U/L Total Protein (6.5-8.0) g/dL Albumin (3.5-5.0) g/dL Stool Occult Blood POS (NEG) Urine Opiates Screen (Not Detect) Ur Barbiturates Screen (Not Detect) Ur Phencyclidine Scrn (Not Detect) Ur Amphetamines Screen (Not Detect) U Benzodiazepines Scrn (Not Detect) Urine Cocaine Screen (Not Detect) U Marijuana (THC) Screen (Not Detect) Ethyl Alcohol mg/dL COVID-19 (LUIZ) Negative (Negative) COVID-19 Clin Com See Note Blood Type Antibody Screen Crossmatch 06/14/20 06/14/20 06/14/20 Range/Units 00:17 00:17 00:17 WBC 8.6 (4.8-10.8) X10*3/uL RBC 1.87 L D (4.60-5.80) X10*6/uL Hgb 5.3 L* D (14.0-18.0) g/dl Hct 17.4 L* D (42-52) % MCV 93.0 (80-98) fL MCH 28.3 (27.0-33.0) pg MCHC 30.5 L (31.0-36.0) g/dl RDW 19.3 H (11.0-16.0) % Plt Count 285 D (160-400) X10*3/uL MPV 10.8 (9.4-12.4) fL Immature Gran % (Auto) 0.5 H (0.0-0.4) % Neut % (Auto) 84.0 H (45-73) % Lymph % (Auto) 12.0 L (20-40) % [place] % (Auto) 3.4 (2-11) % Eos % (Auto) 0.0 (0-4) % Baso % (Auto) 0.1 (0-2) % Lymph # (Auto) 1.0 L (1.2-4.9) X10*3/uL [place] # (Auto) 0.3 (0.1-1.2) X10*3/uL Eos # (Auto) 0.0 (0.0-0.4) X10*3/uL Baso # (Auto) 0.0 (0.0-0.2) X10*3/uL Abs Immat Gran (auto) 0.04 H (0.00-0.03) X10*3/uL Absolute Neuts (auto) 7.2 (2.0-8.3) X10*3/uL Absolute Nucleated RBC 0.000 (0.0-0.012) X10*3/uL Nucleated RBC % (auto) 0.0 (0.0-0.2) /100WBC PT 16.1 H D (10.8-13.0) SEC INR 1.4 H (0.9-1.1) VBG pH (7.32-7.43) VBG pCO2 mmHg VBG pO2 mmHg VBG HCO3 mmol/L VBG O2 Saturation % VBG Base Excess mmol/L Sodium 143 (135-145) mmol/L Potassium 6.8 H* D (3.3-5.1) mmol/L Chloride 117 H (96-108) mmol/L Carbon Dioxide 10 L* D (22-29) mmol/L Anion Gap 23 H (12-20) BUN 115 H* D (9-16) mg/dL Creatinine 1.82 H (0.5-1.4) mg/dL Estim Creat Clear Calc 31.2 Estimated GFR 37 POC Glucose (60-115) mg/dL Random Glucose 446 H* (60-115) mg/dL Calcium 8.6 D (8.4-10.2) mg/dL Total Bilirubin 0.6 (0.0-1.0) mg/dL Direct Bilirubin 0.4 (0.0-0.5) mg/dL AST 67 H (5-37) U/L ALT 44 H (0-40) U/L Alkaline Phosphatase 486 H D (39-117) U/L Total Protein 5.9 L D (6.5-8.0) g/dL Albumin 2.8 L D (3.5-5.0) g/dL Stool Occult Blood (NEG) Urine Opiates Screen (Not Detect) Ur Barbiturates Screen (Not Detect) Ur Phencyclidine Scrn (Not Detect) Ur Amphetamines Screen (Not Detect) U Benzodiazepines Scrn (Not Detect) Urine Cocaine Screen (Not Detect) U Marijuana (THC) Screen (Not Detect) Ethyl Alcohol mg/dL COVID-19 (LUIZ) (Negative) COVID-19 Clin Com Blood Type Antibody Screen Crossmatch 06/14/20 06/14/20 06/14/20 Range/Units 00:17 01:43 01:43 WBC 8.0 (4.8-10.8) X10*3/uL RBC 1.78 L (4.60-5.80) X10*6/uL Hgb 5.0 L* (14.0-18.0) g/dl Hct 16.7 L* (42-52) % MCV 93.8 (80-98) fL MCH 28.1 (27.0-33.0) pg MCHC 29.9 L (31.0-36.0) g/dl RDW 19.5 H (11.0-16.0) % Plt Count 265 (160-400) X10*3/uL MPV 11.0 (9.4-12.4) fL Immature Gran % (Auto) 0.4 (0.0-0.4) % Neut % (Auto) 84.4 H (45-73) % Lymph % (Auto) 13.0 L (20-40) % [place] % (Auto) 2.1 (2-11) % Eos % (Auto) 0.0 (0-4) % Baso % (Auto) 0.1 (0-2) % Lymph # (Auto) 1.0 L (1.2-4.9) X10*3/uL [place] # (Auto) 0.2 (0.1-1.2) X10*3/uL Eos # (Auto) 0.0 (0.0-0.4) X10*3/uL Baso # (Auto) 0.0 (0.0-0.2) X10*3/uL Abs Immat Gran (auto) 0.03 (0.00-0.03) X10*3/uL Absolute Neuts (auto) 6.8 (2.0-8.3) X10*3/uL Absolute Nucleated RBC 0.000 (0.0-0.012) X10*3/uL Nucleated RBC % (auto) 0.0 (0.0-0.2) /100WBC PT (10.8-13.0) SEC INR (0.9-1.1) VBG pH (7.32-7.43) VBG pCO2 mmHg VBG pO2 mmHg VBG HCO3 mmol/L VBG O2 Saturation % VBG Base Excess mmol/L Sodium (135-145) mmol/L Potassium (3.3-5.1) mmol/L Chloride (96-108) mmol/L Carbon Dioxide (22-29) mmol/L Anion Gap (12-20) BUN (9-16) mg/dL Creatinine (0.5-1.4) mg/dL Estim Creat Clear Calc Estimated GFR POC Glucose (60-115) mg/dL Random Glucose (60-115) mg/dL Calcium (8.4-10.2) mg/dL Total Bilirubin (0.0-1.0) mg/dL Direct Bilirubin (0.0-0.5) mg/dL AST (5-37) U/L ALT (0-40) U/L Alkaline Phosphatase (39-117) U/L Total Protein (6.5-8.0) g/dL Albumin (3.5-5.0) g/dL Stool Occult Blood (NEG) Urine Opiates Screen (Not Detect) Ur Barbiturates Screen (Not Detect) Ur Phencyclidine Scrn (Not Detect) Ur Amphetamines Screen (Not Detect) U Benzodiazepines Scrn (Not Detect) Urine Cocaine Screen (Not Detect) U Marijuana (THC) Screen (Not Detect) Ethyl Alcohol < 10 mg/dL COVID-19 (LUIZ) (Negative) COVID-19 Clin Com Blood Type O Positive Antibody Screen NEGATIVE Crossmatch See Detail 06/14/20 06/14/20 06/14/20 Range/Units 01:43 02:51 03:23 WBC (4.8-10.8) X10*3/uL RBC (4.60-5.80) X10*6/uL Hgb (14.0-18.0) g/dl Hct (42-52) % MCV (80-98) fL MCH (27.0-33.0) pg MCHC (31.0-36.0) g/dl RDW (11.0-16.0) % Plt Count (160-400) X10*3/uL MPV (9.4-12.4) fL Immature Gran % (Auto) (0.0-0.4) % Neut % (Auto) (45-73) % Lymph % (Auto) (20-40) % [place] % (Auto) (2-11) % Eos % (Auto) (0-4) % Baso % (Auto) (0-2) % Lymph # (Auto) (1.2-4.9) X10*3/uL [place] # (Auto) (0.1-1.2) X10*3/uL Eos # (Auto) (0.0-0.4) X10*3/uL Baso # (Auto) (0.0-0.2) X10*3/uL Abs Immat Gran (auto) (0.00-0.03) X10*3/uL Absolute Neuts (auto) (2.0-8.3) X10*3/uL Absolute Nucleated RBC (0.0-0.012) X10*3/uL Nucleated RBC % (auto) (0.0-0.2) /100WBC PT (10.8-13.0) SEC INR (0.9-1.1) VBG pH 7.49 H (7.32-7.43) VBG pCO2 12 mmHg VBG pO2 230 mmHg VBG HCO3 9 mmol/L VBG O2 Saturation 99.0 % VBG Base Excess -12.6 mmol/L Sodium 143 (135-145) mmol/L Potassium 6.3 H* (3.3-5.1) mmol/L Chloride 120 H (96-108) mmol/L Carbon Dioxide 11 L (22-29) mmol/L Anion Gap 18 (12-20) BUN 112 H* (9-16) mg/dL Creatinine 1.67 H (0.5-1.4) mg/dL Estim Creat Clear Calc 34.0 Estimated GFR 41 POC Glucose (60-115) mg/dL Random Glucose 410 H* (60-115) mg/dL Calcium 8.3 L (8.4-10.2) mg/dL Total Bilirubin (0.0-1.0) mg/dL Direct Bilirubin (0.0-0.5) mg/dL AST (5-37) U/L ALT (0-40) U/L Alkaline Phosphatase (39-117) U/L Total Protein (6.5-8.0) g/dL Albumin (3.5-5.0) g/dL Stool Occult Blood (NEG) Urine Opiates Screen Not Detected (Not Detect) Ur Barbiturates Screen Not Detected (Not Detect) Ur Phencyclidine Scrn Not Detected (Not Detect) Ur Amphetamines Screen Not Detected (Not Detect) U Benzodiazepines Scrn Not Detected (Not Detect) Urine Cocaine Screen Not Detected (Not Detect) U Marijuana (THC) Screen Not Detected (Not Detect) Ethyl Alcohol mg/dL COVID-19 (LUIZ) (Negative) COVID-19 Clin Com Blood Type Antibody Screen Crossmatch ECG Data Attestation: I personally reviewed and interpreted this ECG as follows: (Heart rate 116, sinus rhythm, no ST segment depression or elevation, nonspecific T- wave abnormality. No peaked T-wave, QTC 444, low-voltage EKG) Discharge Plan Discharge Clinical Impression: Acute hyperkalemia, Acute hyperglycemia, Acute upper GI bleed Anemia Qualifiers: Anemia type: unspecified type Qualified Code(s): D64.9 - Anemia, unspecified Patient Disposition: Admitted As Inpatient
[2020-06-13] MEDS: 0.9 % Sodium Chloride 1,000 ML 999 ML IVCONT (23:44)
[2020-06-14] VITALS (29 sets, daily range): BP systolic 86–135; BP diastolic 45–70; PULSE 98–115; RESP 10–20; TEMP 36.3–36.9; O2SAT 97–100
[2020-06-14] MEDS: ondansetron HCL 4 MG/2 ML VIAL IVPUSH (00:03)
[2020-06-14 00:24] LABS: Basophils Percent Auto 0.1 % (0-2); Imm Gran Abs Auto 0.04 X10*3/uL (0.00-0.03); Imm Gran Pct Auto 0.5 % (0.0-0.4); MANUAL DIFF FLAG NO; Mean Corpuscular HGB Conc 30.5 g/dl (31.0-36.0); Mean Corpuscular Hemoglobin 28.3 pg (27.0-33.0); Mean Platelet Volume 10.8 fL (9.4-12.4); Monocytes Absolute Auto 0.3 X10*3/uL (0.1-1.2); Monocytes Percent Auto 3.4 % (2-11); Neutrophils Absolute Auto 7.2 X10*3/uL (2.0-8.3); Platelet Count 285 X10*3/uL (160-400); Red Blood Count 1.87 X10*6/uL (4.60-5.80); Red Cell Distribution Width 19.3 % (11.0-16.0); White Blood Count 8.6 X10*3/uL (4.8-10.8)
[2020-06-14 00:26] LABS: Hematocrit 17.4 % (42-52)
[2020-06-14 00:28] LABS: Hemoglobin 5.3 g/dl (14.0-18.0)
[2020-06-14 00:31] LABS: OBS Int Ctl Valid YES; OBS1 POS (NEG)
[2020-06-14 00:35] LABS: COVID-19 Test Negative (Negative); IDNOW Serial# 9DD0AD1C
[2020-06-14 00:36] LABS: INTERNATIONAL NORM RATIO 1.4 (0.9-1.1); Prothrombin Time 16.1 SEC (10.8-13.0)
[2020-06-14 00:49] LABS: Ethanol < 10 mg/dL
[2020-06-14 01:12] LABS: Alanine Aminotransferase 44 U/L (0-40); Albumin Level 2.8 g/dL (3.5-5.0); Alkaline Phosphatase 486 U/L (39-117); Anion Gap 23 (12-20); Aspartate Amino Transferase 67 U/L (5-37); Bilirubin Direct 0.4 mg/dL (0.0-0.5); Bilirubin Total 0.6 mg/dL (0.0-1.0); Blood Urea Nitrogen 115 mg/dL (9-16); Calcium 8.6 mg/dL (8.4-10.2); Carbon Dioxide 10 mmol/L (22-29); Chloride 117 mmol/L (96-108); Creatinine Clr Calc Pharmacy 31.2; Estimated Glomerular Filt Rate 37; Glucose Random 446 mg/dL (60-115); Potassium 6.8 mmol/L (3.3-5.1); Sodium 143 mmol/L (135-145); Total Protein 5.9 g/dL (6.5-8.0)
[2020-06-14] MEDS: Insulin Regular, Human 100 UNIT/ML 3 ML VIAL 10 UNIT IVPUSH (01:25)
[2020-06-14] MEDS: Sodium Polystyrene Sulfon/Sorb 15 GM/60 ML ORAL.SUSP 30 GM PO (01:28)
[2020-06-14] MEDS: Sodium Bicarbonate 8.4% 100 MEQ in Dextrose 5 % 900 ML IV ×2 (01:28→13:02)
[2020-06-14] MEDS: Calcium Gluconate/NaCl,Iso-Osm 1 GM/50 ML PLAST..BAG IV (01:30)
[2020-06-14 01:49] LABS: MANUAL DIFF FLAG NO; Mean Corpuscular HGB Conc 29.9 g/dl (31.0-36.0); Mean Corpuscular Hemoglobin 28.1 pg (27.0-33.0); Mean Corpuscular Volume 93.8 fL (80-98); Platelet Count 265 X10*3/uL (160-400); Red Blood Count 1.78 X10*6/uL (4.60-5.80); Red Cell Distribution Width 19.5 % (11.0-16.0)
[2020-06-14 01:50] LABS: Basophils Percent Auto 0.1 % (0-2); Hematocrit 16.7 % (42-52); Imm Gran Abs Auto 0.03 X10*3/uL (0.00-0.03); Imm Gran Pct Auto 0.4 % (0.0-0.4); Monocytes Absolute Auto 0.2 X10*3/uL (0.1-1.2); Monocytes Percent Auto 2.1 % (2-11); Neutrophils Absolute Auto 6.8 X10*3/uL (2.0-8.3); Neutrophils Percent Auto 84.4 % (45-73)
[2020-06-14] MEDS: Sodium Bicarbonate 8.4% 50 MEQ/50 ML SYRINGE IVPUSH (02:05)
[2020-06-14 02:19] LABS: Anion Gap 18 (12-20); Blood Urea Nitrogen 112 mg/dL (9-16); Calcium 8.3 mg/dL (8.4-10.2); Carbon Dioxide 11 mmol/L (22-29); Chloride 120 mmol/L (96-108); Estimated Glomerular Filt Rate 41; Glucose Random 410 mg/dL (60-115); Potassium 6.3 mmol/L (3.3-5.1); Sodium 143 mmol/L (135-145)
--- NOTE | 2020-06-14 02:20 | ECG_ITS ---
Test Reason : GI BLEED Blood Pressure : / mmHG Vent. Rate : 116 BPM Atrial Rate : 116 BPM P-R Int : 152 ms QRS Dur : 076 ms QT Int : 320 ms P-R-T Axes : 036 027 072 degrees QTc Int : 444 ms Sinus tachycardia Low voltage QRS Nonspecific ST and T wave abnormality Abnormal ECG When compared with ECG of 13-MAY-2020 13:23, No significant change was found Referred By: Ana Malagon Electronically Signed By:Ladarius Salinas
[2020-06-14 02:59] LABS: pH VBG 7.49 (7.32-7.43)
[2020-06-14 03:00] LABS: Base Excess VBG -12.6 mmol/L; HCO3 VBG 9 mmol/L; PCO2 VBG 12 mmHg; PO2 VBG 230 mmHg
--- NOTE | 2020-06-14 03:05 | PM.IMHP ---
History of Present Illness Date of Service: 06/14/20 Chief Complaint: Bright red blood per rectum 70-year-old male with a past medical history of hypertension, hyperlipidemia, diabetes, diabetic neuropathy, GERD, history of cirrhosis, question portal vein thrombosis history-not on anticoagulation presented to the hospital with a chief complaint of bright red blood per rectum. Patient is a very poor historian. Mentioned that he has been having diarrhea and noted blood in the stool for some time. Yesterday he had an episode of vomiting with blood in it. Also complains of abdominal pain going on for some time. Denies any chest pain palpitations. Mentions that he has been having lightheadedness. Denies any urinary complaints. Review of all other systems is negative except mentioned above ER course For ER team patient was guaiac positive. On labs noted to have anemia with hemoglobin of 5.3-ordered 3 units of blood transfusion; also noted to have severe metabolic acidosis with bicarb of 10-started on bicarb drip., noted TREMANYE and hyperkalemia. Given insulin and dextrose. Noted to have transaminitis. On exam patient has right upper quadrant pain and has known history of gallstones. Currently not consult for any signs of infection. Admitted to the hospital for further management. 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 Type 2 diabetes mellitus with hyperglycemia Family History Father Diabetes Mother Breast cancer Diabetes Cardiovascular disease Brother Diabetes Sister Diabetes Surgical History History of liver biopsy Social History (Updated 05/16/20 @ 09:31 by ABDI Carrasquillo) Household Members: Other Alcohol intake: never Smoking Status: Former smoker Advance Directives: No Meds Allergies Allergy/AdvReac Type Severity Reaction Status Date / Time No Known Allergies Allergy Verified 05/26/20 10:49 Active Medications: Current Medications Generic Name Dose Route Start Last Admin Trade Name Freq PRN Reason Stop Dose Admin Dextrose 12.5 gm 06/14/20 03:00 Dextrose 50 % 25 Gm/50 Ml Vial IVPUSH 06/14/20 03:01 ONCE ONE Sodium Bicarbonate 100 meq/ 1,000 mls @ 100 mls/hr 06/14/20 01:15 06/14/20 01:28 Dextrose IV 100 mls/hr .Q10H ROJAS Administration Sodium Chloride 500 mls @ 500 mls/hr 06/14/20 03:00 Ns IV 06/14/20 03:59 .Q1H ROJAS Sodium Chloride 1,000 mls @ 100 mls/hr 06/14/20 03:00 Ns IVCONT .Q10H ROJAS Sodium Chloride 1,000 mls @ 100 mls/hr 06/14/20 03:00 IVCONT .Q10H ROJAS Insulin Human Lispro 0 unit 06/14/20 07:30 Insulin Lispro 100 Unit/Ml 3 Ml Vial SUBCUT QIDACHS [facility] Insulin Human Regular 5 unit 06/14/20 03:00 Insulin Regular, Human 100 Unit/Ml 3 Ml Vial IVPUSH 06/14/20 03:01 ONCE ONE Pantoprazole Sodium 40 mg 06/14/20 06:30 Pantoprazole Sodium 40 Mg/10 Ml Vial IVPUSH BID@0630,1630 [facility] Home Medications Medication Instructions Recorded Confirmed Last Taken Type ascorbic acid (vitamin C) 500 mg 500 mg PO QAM 02/19/20 05/26/20 Unknown History tablet aspirin 81 mg tablet,delayed 81 mg PO BEDTIME 02/19/20 05/26/20 Unknown History release blood sugar diagnostic #10 ea 02/19/20 05/26/20 Unknown History cholecalciferol (vitamin D3) 50 50 mcg PO QAM 02/19/20 05/26/20 Unknown History mcg (2,000 unit) tablet ferrous sulfate 325 mg (65 mg 325 mg PO QAM 02/19/20 05/26/20 Unknown History iron) tablet hydrocodone 5 mg-acetaminophen 325 1 tab PO Q8H PRN 02/19/20 05/26/20 Unknown History mg tablet lancets 33 gauge #100 ea 02/19/20 05/26/20 Unknown History lisinopril 20 1 tab PO QAM 02/19/20 05/26/20 Unknown History mg-hydrochlorothiazide 25 mg tablet omeprazole 20 mg capsule,delayed 20 mg PO DAILY 02/19/20 05/26/20 Unknown History release pen needle, diabetic 32 gauge x #50 ea 02/19/20 05/26/20 Unknown History tamsulosin 0.4 mg capsule 0.4 mg PO DAILY 02/19/20 05/26/20 Unknown History atorvastatin 40 mg tablet 40 mg PO tab 03/25/20 05/26/20 Unknown History gabapentin 300 mg capsule 300 mg PO cap 04/28/20 05/26/20 Unknown History pen needle, diabetic 31 gauge x #1200 ea 04/28/20 05/26/20 Unknown History 09/07 Physical Exam Vital Signs and Narrative: Vital Signs: Last Vital Signs Temp 98.3 F 06/14/20 02:55 Pulse 114 H 06/14/20 02:55 Resp 10 L 06/14/20 02:55 BP 93/54 L 06/14/20 02:55 Pulse Ox 100 06/14/20 02:00 Body Mass Index 25.8 Gen: Appears be in no acute distress HEENT: NCAT, Moist mucosa. Pulmonary: Vesicular breath sounds, fair air entry CVS: Normal S1-S2 Abdomen: BS+, Soft, mildly tender diffusely; no guarding no rigidity Extremities: Warm well perfused Neuro: Alert and awake.; moves all extremities equally; grossly nonfocal Results Labs CBC and Chem 7: 06/14/20 01:43 06/14/20 01:43 Labs: Laboratory Results - last 24 hr 06/13/20 06/14/20 06/14/20 22:54 00:10 00:10 MCV MCH MCHC RDW Plt Count MPV Immature Gran % (Auto) Neut % (Auto) Lymph % (Auto) [place] % (Auto) Eos % (Auto) Baso % (Auto) Lymph # (Auto) [place] # (Auto) Eos # (Auto) Baso # (Auto) Abs Immat Gran (auto) Absolute Neuts (auto) Absolute Nucleated RBC Nucleated RBC % (auto) PT INR VBG pH VBG pCO2 VBG pO2 VBG HCO3 VBG O2 Saturation VBG Base Excess Anion Gap Estim Creat Clear Calc Estimated GFR POC Glucose 330 H Random Glucose Calcium Total Bilirubin Direct Bilirubin AST ALT Alkaline Phosphatase Total Protein Albumin Stool Occult Blood POS Ethyl Alcohol COVID-19 ([facility]UI[facility]) Negative COVID-19 Clin Com See Note Blood Type Antibody Screen Crossmatch 06/14/20 06/14/20 06/14/20 00:17 00:17 00:17 MCV 93.0 MCH 28.3 MCHC 30.5 L RDW 19.3 H Plt Count 285 D MPV 10.8 Immature Gran % (Auto) 0.5 H Neut % (Auto) 84.0 H Lymph % (Auto) 12.0 L [place] % (Auto) 3.4 Eos % (Auto) 0.0 Baso % (Auto) 0.1 Lymph # (Auto) 1.0 L [place] # (Auto) 0.3 Eos # (Auto) 0.0 Baso # (Auto) 0.0 Abs Immat Gran (auto) 0.04 H Absolute Neuts (auto) 7.2 Absolute Nucleated RBC 0.000 Nucleated RBC % (auto) 0.0 PT 16.1 H D INR 1.4 H VBG pH VBG pCO2 VBG pO2 VBG HCO3 VBG O2 Saturation VBG Base Excess Anion Gap 23 H Estim Creat Clear Calc 31.2 Estimated GFR 37 POC Glucose Random Glucose 446 H* Calcium 8.6 D Total Bilirubin 0.6 Direct Bilirubin 0.4 AST 67 H ALT 44 H Alkaline Phosphatase 486 H D Total Protein 5.9 L D Albumin 2.8 L D Stool Occult Blood Ethyl Alcohol COVID-19 ([facility]) COVID-19 Clin Com Blood Type Antibody Screen Crossmatch 06/14/20 06/14/20 06/14/20 00:17 01:43 01:43 MCV 93.8 MCH 28.1 MCHC 29.9 L RDW 19.5 H Plt Count 265 MPV 11.0 Immature Gran % (Auto) 0.4 Neut % (Auto) 84.4 H Lymph % (Auto) 13.0 L [place] % (Auto) 2.1 Eos % (Auto) 0.0 Baso % (Auto) 0.1 Lymph # (Auto) 1.0 L [place] # (Auto) 0.2 Eos # (Auto) 0.0 Baso # (Auto) 0.0 Abs Immat Gran (auto) 0.03 Absolute Neuts (auto) 6.8 Absolute Nucleated RBC 0.000 Nucleated RBC % (auto) 0.0 PT INR VBG pH VBG pCO2 VBG pO2 VBG HCO3 VBG O2 Saturation VBG Base Excess Anion Gap Estim Creat Clear Calc Estimated GFR POC Glucose Random Glucose Calcium Total Bilirubin Direct Bilirubin AST ALT Alkaline Phosphatase Total Protein Albumin Stool Occult Blood Ethyl Alcohol < 10 COVID-19 ([facility]) COVID-19 Clin Com Blood Type O Positive Antibody Screen NEGATIVE Crossmatch See Detail 06/14/20 06/14/20 01:43 02:51 MCV MCH MCHC RDW Plt Count MPV Immature Gran % (Auto) Neut % (Auto) Lymph % (Auto) [place] % (Auto) Eos % (Auto) Baso % (Auto) Lymph # (Auto) [place] # (Auto) Eos # (Auto) Baso # (Auto) Abs Immat Gran (auto) Absolute Neuts (auto) Absolute Nucleated RBC Nucleated RBC % (auto) PT INR VBG pH 7.49 H VBG pCO2 12 VBG pO2 230 VBG HCO3 9 VBG O2 Saturation 99.0 VBG Base Excess -12.6 Anion Gap 18 Estim Creat Clear Calc 34.0 Estimated GFR 41 POC Glucose Random Glucose 410 H* Calcium 8.3 L Total Bilirubin Direct Bilirubin AST ALT Alkaline Phosphatase Total Protein Albumin Stool Occult Blood Ethyl Alcohol COVID-19 ([facility]) COVID-19 [employer] Blood Type Antibody Screen Crossmatch Assessment and Plan (1) Anemia: Qualifiers: Anemia type: unspecified type Qualified Code(s): D64.9 - Anemia, unspecified Status: Acute 70-year-old male with a past medical history of hypertension, hyperlipidemia, diabetes, liver cirrhosis, history of question portal vein thrombosis-not on anticoagulation, history of gallstones presented to the hospital with a chief complaint of bright red blood per rectum/abdominal pain. Admitted to the hospital for further management GI bleed: Patient reports he had bright red per rectum; also had an episode of blood in the vomitus. Per ER physician-rectal exam showed black stool. Guaiac positive. (patient was on iron tablets at home) IV PPI b.i.d. GI consult for possible EGD and colonoscopy Abdominal pain: Patient has known gallstones. Also has history of question portal vein thrombosis. Currently not on anticoagulation. Will obtain an abdominal ultrasound and also mesenteric duplex. Supportive care. Anemia: Likely in the setting of GI bleed. Patient's hemoglobin on presentation was 5.3. Patient being transfused 3 units of blood. Blood pressure on the soft side. Currently mentating well. Will continue to monitor Normocytic. Platelets within normal limits. TREMAYNE: Likely prerenal. IV fluids. Hold home lisinopril/hydrochlorothiazide. Nephrology consult Hyperkalemia: Patient protection presentation was 6.8. Given insulin plus dextrose. EKG showed no new changes. I ordered 1 more insulin plus dextrose. Repeat potassium levels in 4 hours. Metabolic acidosis: Likely in the setting of TREMAYNE. Patient started on bicarb drip. Diabetes with hyperglycemia: Will keep the patient on insulin sliding scale. Patient noted to have mild anion gap on presentation. Improved. Hold home oral hypoglycemic agents. Transaminitis: Patient has known liver cirrhosis. Hold home statin. Monitor levels. DVT prophylaxis: SCD boots Code status: Full code
[2020-06-14 04:01] LABS: Amphetamine Screen Urine Not Detected (Not Detect); Barbiturates, Urine Not Detected (Not Detect); Benzodiazepines Screen Urine Not Detected (Not Detect); Cannabinoid Screen Urine Not Detected (Not Detect); Cocaine Screen Urine Not Detected (Not Detect); Opiate Screen Urine Not Detected (Not Detect); Phencyclidine Screen Urine Not Detected (Not Detect)
[2020-06-14 04:21] LABS: Glucose, Whole Blood 366 mg/dL (60-115)
--- NOTE | 2020-06-14 04:26 | PC.NURSE ---
iv orders reviewed with hospitalist. verbal order to start the .45 ns after the bicarb infusing is done.
[2020-06-14] MEDS: Insulin Regular, Human 100 UNIT/ML 3 ML VIAL IVPUSH (04:32)
[2020-06-14 05:28] LABS: Glucose Urine UA 250 MG/DL (NEG); Leukocyte Esterase Urine NEG (NEG); Nitrite Urine NEG (NEG); Specific Gravity - Urine 1.025 (1.005-1.025); Urine Blood TRACE (NEG); Urine Ketones NEG (NEG); Urine Protein NEG (NEG-TRACE)
[2020-06-14 05:29] LABS: Appearance Urine HAZY; Color Urine YELLOW
--- NOTE | 2020-06-14 05:29 | PC.NURSE ---
pt receiving his 2nd unit of rbc. pt halley well no complications
[2020-06-14 05:41] LABS: RBC Urine 0 /HPF (0); Squamous Epithelial Cell Urine 1+ /LPF; WBC Urine 0-2 /HPF (0-4)
[2020-06-14 05:42] LABS: Amorphous Sediment Urine 1+ /LPF; Mucus Urine 1+ /LPF
[2020-06-14] MEDS: Pantoprazole Sodium 40 MG/10 ML VIAL IVPUSH ×2 (08:02→18:47)
--- NOTE | 2020-06-14 08:19 | PC.NURSE ---
[facility] FAX# [phone]. ASKING FOR PAPERWORK TO BE FAXED UPON DISCHARGE.
[2020-06-14 08:30] LABS: Glucose, Whole Blood 433 mg/dL (60-115)
[2020-06-14] MEDS: Insulin Lispro 100 UNIT/ML 3 ML VIAL SUBCUT ×2 (08:31→14:20)
--- NOTE | 2020-06-14 08:57 | PM.CNGS ---
History of Present Illness Consult details Consult date: 06/14/20 Narrative: 70-year-old male patient with a known history of cirrhosis the previous findings of portal vein thrombosis presenting with blood per rectum and severe anemia. Patient also has possible history of gallstones noted on a previous ultrasound. On presentation to the emergency department the patient was found to have a hemoglobin of 5.3 and was subsequently transfused [address] of the abdomen and pelvis revealed a cirrhotic liver with a trace amount of fluid consistent with ascites. There is also inflammatory changes suggestive of pancreatitis. No gallstones gallbladder wall thickening is identified. An ultrasound of the abdomen today reveals no gallstones within the gallbladder. Surgical consultation was requested for the previous history of gallstones. Patient reports abdominal pain diffusely as well as loose story stools. 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 Type 2 diabetes mellitus with hyperglycemia Family History Family History Father Diabetes Mother Breast cancer Diabetes Cardiovascular disease Brother Diabetes Sister Diabetes Surgical History Surgical History History of liver biopsy Social History Social History Household Members: Other Alcohol intake: never Smoking Status: Former smoker Advance Directives: No Meds Allergies Allergy/AdvReac Type Severity Reaction Status Date / Time No Known Allergies Allergy Verified 05/26/20 10:49 Active Medications: Current Medications Generic Name Dose Route Start Last Admin Trade Name Freq PRN Reason Stop Dose Admin Sodium Bicarbonate 100 meq/ 1,000 mls @ 100 mls/hr 06/14/20 01:15 06/14/20 01:28 Dextrose IV 100 mls/hr .Q10H ROJAS Administration Sodium Chloride 1,000 mls @ 100 mls/hr 06/14/20 03:00 06/14/20 04:44 Ns IVCONT Not Given .Q10H ROJAS Sodium Chloride 1,000 mls @ 100 mls/hr 06/14/20 03:00 06/14/20 08:14 IVCONT Not Given .Q10H [facility] Insulin Human Lispro 0 unit 06/14/20 07:30 06/14/20 08:31 Insulin Lispro 100 Unit/Ml 3 Ml Vial SUBCUT 10 unit QIDACHS [facility] Administration Protocol Pantoprazole Sodium 40 mg 06/14/20 06:30 06/14/20 08:02 Pantoprazole Sodium 40 Mg/10 Ml Vial IVPUSH 40 mg BID@0630,1630 [facility] Administration Home Medications Medication Instructions Recorded Confirmed Last Taken Type ascorbic acid (vitamin C) 500 mg 500 mg PO QAM 02/19/20 05/26/20 Unknown History tablet aspirin 81 mg tablet,delayed 81 mg PO BEDTIME 02/19/20 05/26/20 Unknown History release blood sugar diagnostic #10 ea 02/19/20 05/26/20 Unknown History cholecalciferol (vitamin D3) 50 50 mcg PO QAM 02/19/20 05/26/20 Unknown History mcg (2,000 unit) tablet ferrous sulfate 325 mg (65 mg 325 mg PO QAM 02/19/20 05/26/20 Unknown History iron) tablet hydrocodone 5 mg-acetaminophen 325 1 tab PO Q8H PRN 02/19/20 05/26/20 Unknown History mg tablet lancets 33 gauge #100 ea 02/19/20 05/26/20 Unknown History lisinopril 20 1 tab PO QAM 02/19/20 05/26/20 Unknown History mg-hydrochlorothiazide 25 mg tablet omeprazole 20 mg capsule,delayed 20 mg PO DAILY 02/19/20 05/26/20 Unknown History release pen needle, diabetic 32 gauge x #50 ea 02/19/20 05/26/20 Unknown History tamsulosin 0.4 mg capsule 0.4 mg PO DAILY 02/19/20 05/26/20 Unknown History atorvastatin 40 mg tablet 40 mg PO tab 03/25/20 05/26/20 Unknown History gabapentin 300 mg capsule 300 mg PO cap 04/28/20 05/26/20 Unknown History pen needle, diabetic 31 gauge x #1200 ea 04/28/20 05/26/20 Unknown History 09/07 Physical Exam Vital Signs: Vital Signs: Last Vital Signs Temp 98.2 F 06/14/20 08:35 Pulse 108 H 06/14/20 08:35 Resp 15 06/14/20 08:35 BP 110/56 L 06/14/20 08:35 Pulse Ox 100 06/14/20 05:29 Body Mass Index 25.8 Const: General: ill appearing and patient obtunded Orientation/consciousness: patient obtunded Resp: Effort & Inspection: normal respiratory effort Cardio: Rate: regular rate Rhythm: regular rhythm Heart sounds: S1 normal heart sound present and S2 normal heart sound present GI: Inspection: Yes normal to inspection Palpation (GI): Soft to palpation, Tenderness to palpation present (GI) in the RUQ; with no rebound tenderness and Hepatomegaly present Auscultation: Hyperactive bowel sounds present Rectal Exam - Male: Yes deferred Skin: General skin exam: no rashes or lesions noted and dry skin Neuro: General: patient obtunded Results Labs Result diagrams: 06/14/20 01:43 06/14/20 01:43 Labs: Abnormal lab results 06/13/20 06/14/20 06/14/20 Range/Units 22:54 00:17 00:17 RBC 1.87 L D (4.60-5.80) X10*6/uL Hgb 5.3 L* D (14.0-18.0) g/dl Hct 17.4 L* D (42-52) % MCHC 30.5 L (31.0-36.0) g/dl RDW 19.3 H (11.0-16.0) % Immature Gran % (Auto) 0.5 H (0.0-0.4) % Neut % (Auto) 84.0 H (45-73) % Lymph % (Auto) 12.0 L (20-40) % Lymph # (Auto) 1.0 L (1.2-4.9) X10*3/uL Abs Immat Gran (auto) 0.04 H (0.00-0.03) X10*3/uL PT 16.1 H D (10.8-13.0) SEC INR 1.4 H (0.9-1.1) VBG pH (7.32-7.43) Potassium (3.3-5.1) mmol/L Chloride (96-108) mmol/L Carbon Dioxide (22-29) mmol/L Anion Gap (12-20) BUN (9-16) mg/dL Creatinine (0.5-1.4) mg/dL POC Glucose 330 H (60-115) mg/dL Random Glucose (60-115) mg/dL Calcium (8.4-10.2) mg/dL AST (5-37) U/L ALT (0-40) U/L Alkaline Phosphatase (39-117) U/L Total Protein (6.5-8.0) g/dL Albumin (3.5-5.0) g/dL Urine Glucose (UA) (NEG) MG/DL Crossmatch 06/14/20 06/14/20 06/14/20 Range/Units 00:17 01:43 01:43 RBC 1.78 L (4.60-5.80) X10*6/uL Hgb 5.0 L* (14.0-18.0) g/dl Hct 16.7 L* (42-52) % MCHC 29.9 L (31.0-36.0) g/dl RDW 19.5 H (11.0-16.0) % Immature Gran % (Auto) (0.0-0.4) % Neut % (Auto) 84.4 H (45-73) % Lymph % (Auto) 13.0 L (20-40) % Lymph # (Auto) 1.0 L (1.2-4.9) X10*3/uL Abs Immat Gran (auto) (0.00-0.03) X10*3/uL PT (10.8-13.0) SEC INR (0.9-1.1) VBG pH (7.32-7.43) Potassium 6.8 H* D (3.3-5.1) mmol/L Chloride 117 H (96-108) mmol/L Carbon Dioxide 10 L* D (22-29) mmol/L Anion Gap 23 H (12-20) BUN 115 H* D (9-16) mg/dL Creatinine 1.82 H (0.5-1.4) mg/dL POC Glucose (60-115) mg/dL Random Glucose 446 H* (60-115) mg/dL Calcium (8.4-10.2) mg/dL AST 67 H (5-37) U/L ALT 44 H (0-40) U/L Alkaline Phosphatase 486 H D (39-117) U/L Total Protein 5.9 L D (6.5-8.0) g/dL Albumin 2.8 L D (3.5-5.0) g/dL Urine Glucose (UA) (NEG) MG/DL Crossmatch See Detail 06/14/20 06/14/20 06/14/20 Range/Units 01:43 02:51 03:23 RBC (4.60-5.80) X10*6/uL Hgb (14.0-18.0) g/dl Hct (42-52) % MCHC (31.0-36.0) g/dl RDW (11.0-16.0) % Immature Gran % (Auto) (0.0-0.4) % Neut % (Auto) (45-73) % Lymph % (Auto) (20-40) % Lymph # (Auto) (1.2-4.9) X10*3/uL Abs Immat Gran (auto) (0.00-0.03) X10*3/uL PT (10.8-13.0) SEC INR (0.9-1.1) VBG pH 7.49 H (7.32-7.43) Potassium 6.3 H* (3.3-5.1) mmol/L Chloride 120 H (96-108) mmol/L Carbon Dioxide 11 L (22-29) mmol/L Anion Gap (12-20) BUN 112 H* (9-16) mg/dL Creatinine 1.67 H (0.5-1.4) mg/dL POC Glucose (60-115) mg/dL Random Glucose 410 H* (60-115) mg/dL Calcium 8.3 L (8.4-10.2) mg/dL AST (5-37) U/L ALT (0-40) U/L Alkaline Phosphatase (39-117) U/L Total Protein (6.5-8.0) g/dL Albumin (3.5-5.0) g/dL Urine Glucose (UA) 250 H (NEG) MG/DL Crossmatch 06/14/20 06/14/20 Range/Units 04:15 08:27 RBC (4.60-5.80) X10*6/uL Hgb (14.0-18.0) g/dl Hct (42-52) % MCHC (31.0-36.0) g/dl RDW (11.0-16.0) % Immature Gran % (Auto) (0.0-0.4) % Neut % (Auto) (45-73) % Lymph % (Auto) (20-40) % Lymph # (Auto) (1.2-4.9) X10*3/uL Abs Immat Gran (auto) (0.00-0.03) X10*3/uL PT (10.8-13.0) SEC INR (0.9-1.1) VBG pH (7.32-7.43) Potassium (3.3-5.1) mmol/L Chloride (96-108) mmol/L Carbon Dioxide (22-29) mmol/L Anion Gap (12-20) BUN (9-16) mg/dL Creatinine (0.5-1.4) mg/dL POC Glucose 366 H* 433 H* (60-115) mg/dL Random Glucose (60-115) mg/dL Calcium (8.4-10.2) mg/dL AST (5-37) U/L ALT (0-40) U/L Alkaline Phosphatase (39-117) U/L Total Protein (6.5-8.0) g/dL Albumin (3.5-5.0) g/dL Urine Glucose (UA) (NEG) MG/DL Crossmatch Short CBC 06/14/20 06/14/20 Range/Units 00:17 01:43 WBC 8.6 8.0 (4.8-10.8) X10*3/uL Hgb 5.3 L* D 5.0 L* (14.0-18.0) g/dl Hct 17.4 L* D 16.7 L* (42-52) % Plt Count 285 D 265 (160-400) X10*3/uL BMP 06/14/20 06/14/20 00:17 01:43 Sodium 143 143 Potassium 6.8 H* D 6.3 H* Chloride 117 H 120 H Carbon Dioxide 10 L* D 11 L BUN 115 H* D 112 H* Creatinine 1.82 H 1.67 H Calcium 8.6 D 8.3 L Liver Function 06/14/20 Range/Units 00:17 Total Bilirubin 0.6 (0.0-1.0) mg/dL Direct Bilirubin 0.4 (0.0-0.5) mg/dL AST 67 H (5-37) U/L ALT 44 H (0-40) U/L Alkaline Phosphatase 486 H D (39-117) U/L Albumin 2.8 L D (3.5-5.0) g/dL Urine 06/14/20 Range/Units 03:23 Urine Color YELLOW Urine Appearance HAZY Urine pH 5.0 (5.0-8.0) Ur Specific [place] 1.025 (1.005-1.025) Urine Protein NEG (NEG-TRACE) MG/DL Urine Glucose (UA) 250 H (NEG) MG/DL All other labs normal. Assessment and Plan (1) Acute upper GI bleed: Status: Acute 70-year-old male patient with history of cirrhosis, portal vein clot presenting with severe anemia and probable upper GI bleeding. Suspect variceal bleeding by history. No evidence of gallstones or biliary disease on recent ultrasound. Patient appears to be tender over his liver. Agree with Gastroenterology consultation for possible EGD, colonoscopy. Transfusions as needed.
[2020-06-14 11:10] LABS: MANUAL DIFF FLAG NO
[2020-06-14 11:17] LABS: Basophils Percent Auto 0.3 % (0-2); Hematocrit 24.2 % (42-52); Hemoglobin 7.9 g/dl (14.0-18.0); Imm Gran Abs Auto 0.04 X10*3/uL (0.00-0.03); Imm Gran Pct Auto 0.4 % (0.0-0.4); Lymphocytes Absolute Auto 1.1 X10*3/uL (1.2-4.9); Lymphocytes Percent Auto 11.4 % (20-40); Mean Corpuscular HGB Conc 32.6 g/dl (31.0-36.0); Mean Corpuscular Hemoglobin 29.2 pg (27.0-33.0); Mean Corpuscular Volume 89.3 fL (80-98); Mean Platelet Volume 11.3 fL (9.4-12.4); Monocytes Absolute Auto 0.6 X10*3/uL (0.1-1.2); Monocytes Percent Auto 6.7 % (2-11); Neutrophils Absolute Auto 7.5 X10*3/uL (2.0-8.3); Neutrophils Percent Auto 81.2 % (45-73); Platelet Count 206 X10*3/uL (160-400); Red Blood Count 2.71 X10*6/uL (4.60-5.80); Red Cell Distribution Width 15.2 % (11.0-16.0); White Blood Count 9.3 X10*3/uL (4.8-10.8)
[2020-06-14 11:48] LABS: Anion Gap 14 (12-20); Blood Urea Nitrogen 108 mg/dL (9-16); Calcium 7.8 mg/dL (8.4-10.2); Carbon Dioxide 18 mmol/L (22-29); Chloride 120 mmol/L (96-108); Creatinine Clr Calc Pharmacy 40.3; Estimated Glomerular Filt Rate 50; Glucose Random 501 mg/dL (60-115); Potassium 5.1 mmol/L (3.3-5.1); Sodium 147 mmol/L (135-145)
--- NOTE | 2020-06-14 12:43 | PC.NURSE ---
continues to active gi bleeding, COLOR IS DR ANGELIC TIRADO AT THE BEDSIDE , V.O FOR NS BOLUS FOR HYPOTENSION, PLAN IS FOR ICU ADMISSION
[2020-06-14] MEDS: 0.9 % Sodium Chloride 1,000 ML 999 ML IVCONT (13:00)
--- NOTE | 2020-06-14 13:12 | PM.GICN ---
History of Present Illness Data of Consult Service Date: 06/14/20 Requesting physician: [facility] Primary Care Provider: Unknown Physician HPI Reason for consult: acute blood loss anemia 70-year-old male with DM, HTN, nephropathy and cirrhosis who I am seeing for assessment for acute blood loss anemia. Patient had noted diarrheal stool mixed with maroon colored blood as well as one episode of bloody emesis and also abdominal pain with light headedness. He also c/o RUq abdominal pain 9/10 in severity without radiation. Appetite has been poor due to this. Taking aspirin, but not on other nsaids Labs were checked and revealed hemoglobin of 5.3-with subsequent transfusion of 3 units of blood; also noted to have severe metabolic acidosis with bicarb of 10-started on bicarb drip along with TREMAYNE and hyperkalemia. Imaging with portal v thrombosis, cirrhosis,--PVT is new and was noted on prior imaging several months ago. he had prior EGD/colonoscopy 10/2019--small varices noted, polyps (adenomas) removed, Review of Systems Review of Systems: Constitutional : Complaining fatigue, malaise ENT/Mouth : No Hearing loss, No Ear Pain, No Nasal Congestion, No Sinus Pain, No Hoarseness, No sore throat, No Rhinorrhea, No Swallowing Difficulty Eyes: No Eye Pain, No Swelling, No Redness, No Foreign Body, No Discharge, No Vision Changes Cardiovascular : No Chest Pain, No SOB, No Dyspnea on Exertion, No Orthopnea, No Edema, No Palpitations Respiratory : No Cough, No Sputum, No Wheezing, No Smoke Exposure, No Dyspnea Gastrointestinal : Complaining of nausea, no vomiting, no diarrhea. Complaining of bright red blood per rectum. Genitourinary : no irregular bleeding, No Dysuria, No Urinary Frequency, No Hematuria, No Urinary Incontinence, No Urgency, No Flank Pain, No Urinary Flow Changes, No Hesitancy Musculoskeletal : No joint pain, No Myalgias, No Joint Swelling Skin : No Skin Lesions, No rash Neuro : No Weakness, No Numbness, No Paresthesias, No Loss of Consciousness, No Dizziness, No Headache Psych : No Anxiety/Panic, No Depression, No SI/HI/AH/VH, No Social Issues, Heme/Lymph: No Bruising, No Bleeding,No Lymphadenopathy Endocrine : No Polyuria, No Polydipsia, No Temperature Intolerance Yes all other systems are reviewed and are negative [facility] Past Medical History Medical History Essential hypertension GERD (gastroesophageal reflux disease) Hyperlipidemia LDL goal <100 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 Type 2 diabetes mellitus with hyperglycemia Family History Family History Father Diabetes Mother Breast cancer Diabetes Cardiovascular disease Brother Diabetes Sister Diabetes Surgical History Surgical History History of liver biopsy Social History Social History Household Members: Other Alcohol intake: unknown Smoking Status: Unknown if ever smoked Use of substances other than those prescribed or required for medical reasons: Unknown Advance Directives: No Meds Allergies Allergy/AdvReac Type Severity Reaction Status Date / Time No Known Allergies Allergy Verified 05/26/20 10:49 Active Medications: Current Medications Generic Name Dose Route Start Last Admin Trade Name Freq PRN Reason Stop Dose Admin Sodium Chloride 1,000 mls @ 100 mls/hr 06/14/20 03:00 06/14/20 04:44 Ns IVCONT Not Given .Q10H ROJAS Sodium Chloride 1,000 mls @ 100 mls/hr 06/14/20 03:00 06/14/20 08:14 IVCONT Not Given .Q10H ROJAS Sodium Bicarbonate 100 meq/ 1,000 mls @ 100 mls/hr 06/14/20 12:30 06/14/20 13:02 Dextrose IV 06/14/20 22:29 100 mls/hr .Q10H ONE Administration Albumin Human 100 mls @ 100 mls/hr 06/14/20 13:00 Kedbumin 25 % IV 06/14/20 14:59 Q1H ROJAS Sodium Chloride 1,000 mls @ 999 mls/hr 06/14/20 13:00 Ns IVCONT 06/14/20 14:00 .Q1H1M ROJAS Octreotide Acetate 500 mcg/ 501 mls @ 25.05 mls/hr 06/14/20 13:15 Sodium Chloride IVCONT .Q20H ROJAS 25 MCG/HR Insulin Human Lispro 0 unit 06/14/20 07:30 06/14/20 08:31 Insulin Lispro 100 Unit/Ml 3 Ml Vial SUBCUT 10 unit QIDACHS [facility] Administration Protocol Pantoprazole Sodium 40 mg 06/14/20 06:30 06/14/20 08:02 Pantoprazole Sodium 40 Mg/10 Ml Vial IVPUSH 40 mg BID@0630,1630 [facility] Administration Polyethylene Glycol/Electrolytes 240 ml 06/14/20 18:45 Peg 3350/Na Sulf,Bicarb,Cl/Kcl 4,000 Ml Soln.Recon PO 06/14/20 21:26 Q10M [facility] Home Medications Medication Instructions Recorded Confirmed Last Taken Type ascorbic acid (vitamin C) 500 mg 500 mg PO QAM 02/19/20 05/26/20 Unknown History tablet aspirin 81 mg tablet,delayed 81 mg PO BEDTIME 02/19/20 05/26/20 Unknown History release blood sugar diagnostic #10 ea 02/19/20 05/26/20 Unknown History cholecalciferol (vitamin D3) 50 50 mcg PO QAM 02/19/20 05/26/20 Unknown History mcg (2,000 unit) tablet ferrous sulfate 325 mg (65 mg 325 mg PO QAM 02/19/20 05/26/20 Unknown History iron) tablet hydrocodone 5 mg-acetaminophen 325 1 tab PO Q8H PRN 02/19/20 05/26/20 Unknown History mg tablet lancets 33 gauge #100 ea 02/19/20 05/26/20 Unknown History lisinopril 20 1 tab PO QAM 02/19/20 05/26/20 Unknown History mg-hydrochlorothiazide 25 mg tablet omeprazole 20 mg capsule,delayed 20 mg PO DAILY 02/19/20 05/26/20 Unknown History release pen needle, diabetic 32 gauge x #50 ea 02/19/20 05/26/20 Unknown History tamsulosin 0.4 mg capsule 0.4 mg PO DAILY 02/19/20 05/26/20 Unknown History atorvastatin 40 mg tablet 40 mg PO tab 03/25/20 05/26/20 Unknown History gabapentin 300 mg capsule 300 mg PO cap 04/28/20 05/26/20 Unknown History pen needle, diabetic 31 gauge x #1200 ea 04/28/20 05/26/20 Unknown History 09/07 Physical Exam Vital Signs: Vital Signs: Last Vital Signs Temp 98.5 F 06/14/20 10:22 Pulse 104 H 06/14/20 12:42 Resp 14 06/14/20 12:42 BP 86/50 L 06/14/20 12:42 Pulse Ox 100 06/14/20 05:29 Body Mass Index 25.8 Const: General: ill appearing, patient obtunded and tired appearing Nutritional Appearance: thin Orientation/consciousness: patient obtunded Eyes: Other: pallor General: appearance normal, both eyes and all related structures Resp: Effort & Inspection: normal respiratory effort Cardio: Rate: regular rate Rhythm: regular rhythm Heart sounds: S1 normal heart sound present and S2 normal heart sound present GI: Inspection: Yes normal to inspection Palpation (GI): Soft to palpation, Tenderness to palpation present (GI) in the RUQ; with no rebound tenderness and Hepatomegaly present Auscultation: Hyperactive bowel sounds present Rectal Exam - Male: Yes deferred Skin: General skin exam: no rashes or lesions noted and dry skin Neuro: General: patient obtunded Psych: Appearance: disheveled Results Labs CBC & Chem 7: 06/14/20 11:04 06/14/20 11:04 Labs: Short CBC 06/14/20 06/14/20 06/14/20 Range/Units 00:17 01:43 11:04 WBC 8.6 8.0 9.3 (4.8-10.8) X10*3/uL Hgb 5.3 L* D 5.0 L* 7.9 L D (14.0-18.0) g/dl Hct 17.4 L* D 16.7 L* 24.2 L D (42-52) % Plt Count 285 D 265 206 (160-400) X10*3/uL BMP 06/14/20 06/14/20 06/14/20 00:17 01:43 11:04 Sodium 143 143 147 H Potassium 6.8 H* D 6.3 H* 5.1 Chloride 117 H 120 H 120 H Carbon Dioxide 10 L* D 11 L 18 L BUN 115 H* D 112 H* 108 H* Creatinine 1.82 H 1.67 H 1.41 H Calcium 8.6 D 8.3 L 7.8 L D Liver Function 06/14/20 Range/Units 00:17 Total Bilirubin 0.6 (0.0-1.0) mg/dL Direct Bilirubin 0.4 (0.0-0.5) mg/dL AST 67 H (5-37) U/L ALT 44 H (0-40) U/L Alkaline Phosphatase 486 H D (39-117) U/L Albumin 2.8 L D (3.5-5.0) g/dL Urine 06/14/20 Range/Units 03:23 Urine Color YELLOW Urine Appearance HAZY Urine pH 5.0 (5.0-8.0) Ur Specific [place] 1.025 (1.005-1.025) Urine Protein NEG (NEG-TRACE) MG/DL Urine Glucose (UA) 250 H (NEG) MG/DL Assessment and Plan (1) Acute upper GI bleed: Status: Acute 1/ Acute blood loss anemia, with hypovolemic and circulatory compromise causing metabolic acidosis and renal dysfunction. Given hx of cirrhosis and now portal vein thrombosis most likely scenario is variceal bleed, DDX: PUD elizabeth with abdo pain (pain could also be from thrombus), dieulafoy, AVM, gastritis, esophagitis, mass--hypodense material seen on personal r/v of CT in the stomach, not so impressed with pancreatic changes, varices noted. 2/ New portal vein thrombus, need to r/o HCC PLAN: 1/ PPI, octreotide gtt 2/ Ceftriaxone 1 g for 5 d 3/ fluid and vol resus, aim for HGB 8-9 g/dl 4/ EGD today for further assessment, may need ICU depending on clinical course 5/ avoid nsaids 6/ will need triple phase CT or MRI liver protocol to r/o HCC, have a high suspicion for this, will check AFP as well
--- NOTE | 2020-06-14 13:57 | PC.NURSE ---
Pt continues to have large amounts of darfk red stool. aware. Blood sugar currently 400. Filing Writer to bedside, pt to go to ICU. will continue to monitor
[2020-06-14 14:10] LABS: Glucose, Whole Blood 400 mg/dL (60-115)
[2020-06-14] MEDS: Albumin Human 25 % 100 ML IV ×2 (14:35→18:42)
--- NOTE | 2020-06-14 15:34 | MHC.SHP ---
Pre-Procedural Eval Section A The patient is an INPATIENT: Yes The History & Physical has been completed within 30 days and I have reviewed it.: Yes Section B Chief Complaint: TREMAYNE Allergies: Allergies Allergy/AdvReac Type Severity Reaction Status Date / Time No Known Allergies Allergy Verified 05/26/20 10:49 Plan Diagnosis/Plan: Unchanged I have reviewed the history and physical and performed a pertinent physical examination on my patient. No changes have occurred unless specified.
--- NOTE | 2020-06-14 16:19 | PM.OP ---
Brief Operative Note Date of Service: 06/14/20 Pre-op diagnosis: acute blood loss anemia Post-op diagnosis: same Procedure: see op note Surgeon: Galina Brody MD Anesthesia: GETA Estimated blood loss (mL): 40 Condition: stable Disposition: PACU
--- NOTE | 2020-06-14 16:20 | P.OP_ITS ---
Operative Note Operative Note Date of Service: 06/14/20 Narrative: Procedure Description: EGD FLEXIBLE TRANSORAL UPPER GASTROINTESTINAL ENDOSCOPY UPPER ENDOSCOPY Consent: Indications for the procedure and potential complications of bleeding, perforation, reaction to medications and missed diagnosis were discussed with the patient and informed consent was obtained. Instrument: Olympus GIF H 190 J mid size upper endoscope Monitoring: Vital signs and clinical assessment, continuous EKG monitoring, Pulse oximetry, Carbon Dioxide monitoring and blood pressure monitoring were done throughout the procedure. Procedure: The patient was placed in the left lateral decubitis position and pre-procedure medications were administered and a bite block was placed. The endoscope was inserted into the mouth and advanced under direct vision to the third part of duodenum. A careful inspection was made as the upper endoscope was withdrawn including a retroflexed examination of the proximal stomach; Findings and interventions are described below. Findings: Larynx:normal Esophagus: GE junction at 38 cm, diaphragm hiatus at 38 cm, 3 colums of grade II varices, one column had some red hernandez but was not actively bleeding. On forward view a spurting blood vessel was seen in gastric cardia, (ashley grade Ia). 5 clips were applied with eventual hemostasis. Hemospray was also applied for extra insurance, perhaps [employer], but I did not want to take chance of him rebleeding. Stomach: Edematous appearing mucosa with mosaic pattern consistent with portal hypertensive gastropathy. Grade 2 flap valve on retroflexed examination of the cardia. Blood in fundus unable to fully exclude gastric varices. Duodenum: Normal bulb and descending duodenum Intervention: Hemostasis with clips and hemospray Impression/Findings: Dieulafoy lesion with active spurting and blood loss esophageal varices portal hypertensive gastropathy PLAN: Admit to [facility] [place] [place] pantoprazole 40 mg BID IV cont with octreotide IV gtt for 2-3 d for mesenteric vasoconstrictive effects ceftriaxone 1 g OD for 5 days to prevent infection NPO for 24 hrs then advance if stable to clears rescope prior to discharge for esophageal banding
--- NOTE | 2020-06-14 16:28 | P.CONAN_ITS ---
[facility] Active Problems Active Problems: All Active Problems (Updated 06/14/20 @ 01:43 by Ana delcid MD) Anemia (Acute) Acute hyperkalemia (Acute) Acute hyperglycemia (Acute) Acute upper GI bleed (Acute) Cirrhosis (Acute) Type 2 diabetes mellitus with hyperglycemia (Acute) 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 (Acute) Hyperlipidemia LDL goal <100 (Acute) Essential hypertension (Acute) Diarrhea (Acute) Past Medical History Medical History Essential hypertension GERD (gastroesophageal reflux disease) Hyperlipidemia LDL goal <100 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 Type 2 diabetes mellitus with hyperglycemia Family History Family History Father Diabetes Mother Breast cancer Diabetes Cardiovascular disease Brother Diabetes Sister Diabetes Surgical History Surgical History History of liver biopsy Social History Social History Household Members: Other Alcohol intake: unknown Smoking Status: Unknown if ever smoked Use of substances other than those prescribed or required for medical reasons: Unknown Advance Directives: No Meds Allergies Allergy/AdvReac Type Severity Reaction Status Date / Time No Known Allergies Allergy Verified 05/26/20 10:49 Active Medications: Current Medications Generic Name Dose Route Start Last Admin Trade Name Freq PRN Reason Stop Dose Admin Sodium Bicarbonate 100 meq/ 1,000 mls @ 100 mls/hr 06/14/20 12:30 06/14/20 13:02 Dextrose IV 06/14/20 22:29 100 mls/hr .Q10H ONE Administration Octreotide Acetate 500 mcg/ 501 mls @ 50.1 mls/hr 06/14/20 13:15 Sodium Chloride IVCONT .Q10H ROJAS 50 MCG/HR Insulin Glargine 10 unit 06/14/20 14:35 Insulin Glargine,Hum.Rec.Anlog 100 Unit/Ml 10 Ml Vial SUBCUT DAILY [facility] Insulin Human Lispro 0 unit 06/14/20 14:30 Insulin Lispro 100 Unit/Ml 3 Ml Vial SUBCUT Q6H [facility] Protocol Pantoprazole Sodium 40 mg 06/14/20 06:30 06/14/20 08:02 Pantoprazole Sodium 40 Mg/10 Ml Vial IVPUSH 40 mg BID@0630,1630 [facility] Administration Polyethylene Glycol/Electrolytes 240 ml 06/14/20 18:45 Peg 3350/Na Sulf,Bicarb,Cl/Kcl 4,000 Ml Soln.Recon PO 06/14/20 21:26 Q10M [facility] Home Medications Medication Instructions Recorded Confirmed Last Taken Type ascorbic acid (vitamin C) 500 mg 500 mg PO QAM 02/19/20 05/26/20 Unknown History tablet aspirin 81 mg tablet,delayed 81 mg PO BEDTIME 02/19/20 05/26/20 Unknown History release blood sugar diagnostic #10 ea 02/19/20 05/26/20 Unknown History cholecalciferol (vitamin D3) 50 50 mcg PO QAM 02/19/20 05/26/20 Unknown History mcg (2,000 unit) tablet ferrous sulfate 325 mg (65 mg 325 mg PO QAM 02/19/20 05/26/20 Unknown History iron) tablet hydrocodone 5 mg-acetaminophen 325 1 tab PO Q8H PRN 02/19/20 05/26/20 Unknown History mg tablet lancets 33 gauge #100 ea 02/19/20 05/26/20 Unknown History lisinopril 20 1 tab PO QAM 02/19/20 05/26/20 Unknown History mg-hydrochlorothiazide 25 mg tablet omeprazole 20 mg capsule,delayed 20 mg PO DAILY 02/19/20 05/26/20 Unknown History release pen needle, diabetic 32 gauge x #50 ea 02/19/20 05/26/20 Unknown History tamsulosin 0.4 mg capsule 0.4 mg PO DAILY 02/19/20 05/26/20 Unknown History atorvastatin 40 mg tablet 40 mg PO tab 03/25/20 05/26/20 Unknown History gabapentin 300 mg capsule 300 mg PO cap 04/28/20 05/26/20 Unknown History pen needle, diabetic 31 gauge x #1200 ea 04/28/20 05/26/20 Unknown History 09/07 Exam Exam Date and Time: June 14, 20201627 Height,Weight and Vital Signs: Height 5 ft 3 in Weight 66.1 kg Last Vital Signs Temp 98.5 F 06/14/20 10:22 Pulse 107 H 06/14/20 13:57 Resp 16 06/14/20 13:57 BP 111/64 06/14/20 13:57 Pulse Ox 97 06/14/20 13:57 Pertinent Lab Results Pertinent Lab Results: Laboratory Tests 06/13/20 06/14/20 06/14/20 22:54 00:10 00:10 WBC RBC Hgb Hct MCV MCH MCHC RDW Plt Count MPV Immature Gran % (Auto) Neut % (Auto) Lymph % (Auto) [place] % (Auto) Eos % (Auto) Baso % (Auto) Lymph # (Auto) [place] # (Auto) Eos # (Auto) Baso # (Auto) Abs Immat Gran (auto) Absolute Neuts (auto) Absolute Nucleated RBC Nucleated RBC % (auto) PT INR VBG pH VBG pCO2 VBG pO2 VBG HCO3 VBG O2 Saturation VBG Base Excess Sodium Potassium Chloride Carbon Dioxide Anion Gap BUN Creatinine Estim Creat Clear Calc Estimated GFR POC Glucose 330 H Random Glucose Calcium Total Bilirubin Direct Bilirubin AST ALT Alkaline Phosphatase Total Protein Albumin Urine Color Urine Appearance Urine pH Ur Specific [place] Urine Protein Urine Glucose (UA) Urine Ketones Urine Blood Urine Nitrite Ur Leukocyte Esterase Urine RBC Urine WBC Ur Squamous Epith Cells Amorphous Sediment Urine Bacteria Granular Casts Urine Mucus Stool Occult Blood POS Urine Opiates Screen Ur Barbiturates Screen Ur Phencyclidine Scrn Ur Amphetamines Screen U Benzodiazepines Scrn Urine Cocaine Screen U Marijuana (THC) Screen Ethyl Alcohol COVID-19 (LUIZ) Negative COVID-19 Clin Com See Note Blood Type Antibody Screen Crossmatch 06/14/20 06/14/20 06/14/20 00:17 00:17 00:17 WBC 8.6 RBC 1.87 L D Hgb 5.3 L* D Hct 17.4 L* D MCV 93.0 MCH 28.3 MCHC 30.5 L RDW 19.3 H Plt Count 285 D MPV 10.8 Immature Gran % (Auto) 0.5 H Neut % (Auto) 84.0 H Lymph % (Auto) 12.0 L [place] % (Auto) 3.4 Eos % (Auto) 0.0 Baso % (Auto) 0.1 Lymph # (Auto) 1.0 L [place] # (Auto) 0.3 Eos # (Auto) 0.0 Baso # (Auto) 0.0 Abs Immat Gran (auto) 0.04 H Absolute Neuts (auto) 7.2 Absolute Nucleated RBC 0.000 Nucleated RBC % (auto) 0.0 PT 16.1 H D INR 1.4 H VBG pH VBG pCO2 VBG pO2 VBG HCO3 VBG O2 Saturation VBG Base Excess Sodium 143 Potassium 6.8 H* D Chloride 117 H Carbon Dioxide 10 L* D Anion Gap 23 H BUN 115 H* D Creatinine 1.82 H Estim Creat Clear Calc 31.2 Estimated GFR 37 POC Glucose Random Glucose 446 H* Calcium 8.6 D Total Bilirubin 0.6 Direct Bilirubin 0.4 AST 67 H ALT 44 H Alkaline Phosphatase 486 H D Total Protein 5.9 L D Albumin 2.8 L D Urine Color Urine Appearance Urine pH Ur Specific [place] Urine Protein Urine Glucose (UA) Urine Ketones Urine Blood Urine Nitrite Ur Leukocyte Esterase Urine RBC Urine WBC Ur Squamous Epith Cells Amorphous Sediment Urine Bacteria Granular Casts Urine Mucus Stool Occult Blood Urine Opiates Screen Ur Barbiturates Screen Ur Phencyclidine Scrn Ur Amphetamines Screen U Benzodiazepines Scrn Urine Cocaine Screen U Marijuana (THC) Screen Ethyl Alcohol COVID-19 ([facility]) COVID-19 Clin Com Blood Type Antibody Screen Crossmatch 06/14/20 06/14/20 06/14/20 00:17 01:43 01:43 WBC 8.0 RBC 1.78 L Hgb 5.0 L* Hct 16.7 L* MCV 93.8 MCH 28.1 MCHC 29.9 L RDW 19.5 H Plt Count 265 MPV 11.0 Immature Gran % (Auto) 0.4 Neut % (Auto) 84.4 H Lymph % (Auto) 13.0 L [place] % (Auto) 2.1 Eos % (Auto) 0.0 Baso % (Auto) 0.1 Lymph # (Auto) 1.0 L [place] # (Auto) 0.2 Eos # (Auto) 0.0 Baso # (Auto) 0.0 Abs Immat Gran (auto) 0.03 Absolute Neuts (auto) 6.8 Absolute Nucleated RBC 0.000 Nucleated RBC % (auto) 0.0 PT INR VBG pH VBG pCO2 VBG pO2 VBG HCO3 VBG O2 Saturation VBG Base Excess Sodium Potassium Chloride Carbon Dioxide Anion Gap BUN Creatinine Estim Creat Clear Calc Estimated GFR POC Glucose Random Glucose Calcium Total Bilirubin Direct Bilirubin AST ALT Alkaline Phosphatase Total Protein Albumin Urine Color Urine Appearance Urine pH Ur Specific [place] Urine Protein Urine Glucose (UA) Urine Ketones Urine Blood Urine Nitrite Ur Leukocyte Esterase Urine RBC Urine WBC Ur Squamous Epith Cells Amorphous Sediment Urine Bacteria Granular Casts Urine Mucus Stool Occult Blood Urine Opiates Screen Ur Barbiturates Screen Ur Phencyclidine Scrn Ur Amphetamines Screen U Benzodiazepines Scrn Urine Cocaine Screen U Marijuana (THC) Screen Ethyl Alcohol < 10 COVID-19 ([facility]) COVID-19 Clin Com Blood Type O Positive Antibody Screen NEGATIVE Crossmatch See Detail 06/14/20 06/14/20 06/14/20 01:43 02:51 03:23 WBC RBC Hgb Hct MCV MCH MCHC RDW Plt Count MPV Immature Gran % (Auto) Neut % (Auto) Lymph % (Auto) [place] % (Auto) Eos % (Auto) Baso % (Auto) Lymph # (Auto) [place] # (Auto) Eos # (Auto) Baso # (Auto) Abs Immat Gran (auto) Absolute Neuts (auto) Absolute Nucleated RBC Nucleated RBC % (auto) PT INR VBG pH 7.49 H VBG pCO2 12 VBG pO2 230 VBG HCO3 9 VBG O2 Saturation 99.0 VBG Base Excess -12.6 Sodium 143 Potassium 6.3 H* Chloride 120 H Carbon Dioxide 11 L Anion Gap 18 BUN 112 H* Creatinine 1.67 H Estim Creat Clear Calc 34.0 Estimated GFR 41 POC Glucose Random Glucose 410 H* Calcium 8.3 L Total Bilirubin Direct Bilirubin AST ALT Alkaline Phosphatase Total Protein Albumin Urine Color Urine Appearance Urine pH Ur Specific [place] Urine Protein Urine Glucose (UA) Urine Ketones Urine Blood Urine Nitrite Ur Leukocyte Esterase Urine RBC Urine WBC Ur Squamous Epith Cells Amorphous Sediment Urine Bacteria Granular Casts Urine Mucus Stool Occult Blood Urine Opiates Screen Not Detected Ur Barbiturates Screen Not Detected Ur Phencyclidine Scrn Not Detected Ur Amphetamines Screen Not Detected U Benzodiazepines Scrn Not Detected Urine Cocaine Screen Not Detected U Marijuana (THC) Screen Not Detected Ethyl Alcohol COVID-19 ([facility]UIZ) COVID-19 Clin Com Blood Type Antibody Screen Crossmatch 06/14/20 06/14/20 06/14/20 03:23 04:15 08:27 WBC RBC Hgb Hct MCV MCH MCHC RDW Plt Count MPV Immature Gran % (Auto) Neut % (Auto) Lymph % (Auto) [place] % (Auto) Eos % (Auto) Baso % (Auto) Lymph # (Auto) [place] # (Auto) Eos # (Auto) Baso # (Auto) Abs Immat Gran (auto) Absolute Neuts (auto) Absolute Nucleated RBC Nucleated RBC % (auto) PT INR VBG pH VBG pCO2 VBG pO2 VBG HCO3 VBG O2 Saturation VBG Base Excess Sodium Potassium Chloride Carbon Dioxide Anion Gap BUN Creatinine Estim Creat Clear Calc Estimated GFR POC Glucose 366 H* 433 H* Random Glucose Calcium Total Bilirubin Direct Bilirubin AST ALT Alkaline Phosphatase Total Protein Albumin Urine Color YELLOW Urine Appearance HAZY Urine pH 5.0 Ur Specific [place] 1.025 Urine Protein NEG Urine Glucose (UA) 250 H Urine Ketones NEG Urine Blood TRACE Urine Nitrite NEG Ur Leukocyte Esterase NEG Urine RBC 0 Urine WBC 0-2 Ur Squamous Epith Cells 1+ Amorphous Sediment 1+ Urine Bacteria NONE Granular Casts 1-4 Urine Mucus 1+ Stool Occult Blood Urine Opiates Screen Ur Barbiturates Screen Ur Phencyclidine Scrn Ur Amphetamines Screen U Benzodiazepines Scrn Urine Cocaine Screen U Marijuana (THC) Screen Ethyl Alcohol COVID-19 ([facility]UIZ) COVID-19 Clin Com Blood Type Antibody Screen Crossmatch 06/14/20 06/14/20 06/14/20 11:04 11:04 14:00 WBC 9.3 RBC 2.71 L D Hgb 7.9 L D Hct 24.2 L D MCV 89.3 MCH 29.2 MCHC 32.6 RDW 15.2 Plt Count 206 MPV 11.3 Immature Gran % (Auto) 0.4 Neut % (Auto) 81.2 H Lymph % (Auto) 11.4 L [place] % (Auto) 6.7 Eos % (Auto) 0.0 Baso % (Auto) 0.3 Lymph # (Auto) 1.1 L [place] # (Auto) 0.6 Eos # (Auto) 0.0 Baso # (Auto) 0.0 Abs Immat Gran (auto) 0.04 H Absolute Neuts (auto) 7.5 Absolute Nucleated RBC 0.000 Nucleated RBC % (auto) 0.0 PT INR VBG pH VBG pCO2 VBG pO2 VBG HCO3 VBG O2 Saturation VBG Base Excess Sodium 147 H Potassium 5.1 Chloride 120 H Carbon Dioxide 18 L Anion Gap 14 BUN 108 H* Creatinine 1.41 H Estim Creat Clear Calc 40.3 Estimated GFR 50 POC Glucose 400 H* Random Glucose 501 H* Calcium 7.8 L D Total Bilirubin Direct Bilirubin AST ALT Alkaline Phosphatase Total Protein Albumin Urine Color Urine Appearance Urine pH Ur Specific [place] Urine Protein Urine Glucose (UA) Urine Ketones Urine Blood Urine Nitrite Ur Leukocyte Esterase Urine RBC Urine WBC Ur Squamous Epith Cells Amorphous Sediment Urine Bacteria Granular Casts Urine Mucus Stool Occult Blood Urine Opiates Screen Ur Barbiturates Screen Ur Phencyclidine Scrn Ur Amphetamines Screen U Benzodiazepines Scrn Urine Cocaine Screen U Marijuana (THC) Screen Ethyl Alcohol COVID-19 ([facility]UIZ) COVID-19 Clin Com Blood Type Antibody Screen Crossmatch Airway Mallampati Class: II Loose/Missing/Broken Teeth: Yes, Upper and Lower
[2020-06-14 16:53] LABS: Glucose, Whole Blood 286 mg/dL (60-115)
--- NOTE | 2020-06-14 17:03 | PM.CNNEP ---
History of Present Illness Reason for Consult Consult date: 06/14/20 Chief Complaint Chief complaint: TREMAYNE Review of Systems Review of Systems Constitutional : Complaining fatigue, malaise ENT/Mouth : No Hearing loss, No Ear Pain, No Nasal Congestion, No Sinus Pain, No Hoarseness, No sore throat, No Rhinorrhea, No Swallowing Difficulty Eyes: No Eye Pain, No Swelling, No Redness, No Foreign Body, No Discharge, No Vision Changes Cardiovascular : No Chest Pain, No SOB, No Dyspnea on Exertion, No Orthopnea, No Edema, No Palpitations Respiratory : No Cough, No Sputum, No Wheezing, No Smoke Exposure, No Dyspnea Gastrointestinal : Complaining of nausea, no vomiting, no diarrhea. Complaining of bright red blood per rectum. Genitourinary : no irregular bleeding, No Dysuria, No Urinary Frequency, No Hematuria, No Urinary Incontinence, No Urgency, No Flank Pain, No Urinary Flow Changes, No Hesitancy Musculoskeletal : No joint pain, No Myalgias, No Joint Swelling Skin : No Skin Lesions, No rash Neuro : No Weakness, No Numbness, No Paresthesias, No Loss of Consciousness, No Dizziness, No Headache Psych : No Anxiety/Panic, No Depression, No SI/HI/AH/VH, No Social Issues, Heme/Lymph: No Bruising, No Bleeding,No Lymphadenopathy Endocrine : No Polyuria, No Polydipsia, No Temperature Intolerance Yes all other systems are reviewed and are negative and Unobtainable due to mental condition [facility] Past Medical History Medical History Essential hypertension GERD (gastroesophageal reflux disease) Hyperlipidemia LDL goal <100 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 Type 2 diabetes mellitus with hyperglycemia Family History Family History Father Diabetes Mother Breast cancer Diabetes Cardiovascular disease Brother Diabetes Sister Diabetes Surgical History Surgical History History of liver biopsy Social History Social History Household Members: Other Alcohol intake: unknown Smoking Status: Unknown if ever smoked Use of substances other than those prescribed or required for medical reasons: Unknown Advance Directives: No Meds Allergies Allergy/AdvReac Type Severity Reaction Status Date / Time No Known Allergies Allergy Verified 05/26/20 10:49 Active Medications: Current Medications Generic Name Dose Route Start Last Admin Trade Name Freq PRN Reason Stop Dose Admin Sodium Bicarbonate 100 meq/ 1,000 mls @ 100 mls/hr 06/14/20 12:30 06/14/20 13:02 Dextrose IV 06/14/20 22:29 100 mls/hr .Q10H ONE Administration Octreotide Acetate 500 mcg/ 501 mls @ 50.1 mls/hr 06/14/20 13:15 Sodium Chloride IVCONT .Q10H ROJAS 50 MCG/HR Sodium Chloride 1,000 mls @ 100 mls/hr 06/14/20 16:30 Ns IVCONT .Q10H ROJAS Insulin Glargine 10 unit 06/14/20 14:35 Insulin Glargine,Hum.Rec.Anlog 100 Unit/Ml 10 Ml Vial SUBCUT DAILY [facility] Insulin Human Lispro 0 unit 06/14/20 14:30 Insulin Lispro 100 Unit/Ml 3 Ml Vial SUBCUT Q6H [facility] Protocol Pantoprazole Sodium 40 mg 06/14/20 06:30 06/14/20 08:02 Pantoprazole Sodium 40 Mg/10 Ml Vial IVPUSH 40 mg BID@0630,1630 [facility] Administration Polyethylene Glycol/Electrolytes 240 ml 06/14/20 18:45 Peg 3350/Na Sulf,Bicarb,Cl/Kcl 4,000 Ml Soln.Recon PO 06/14/20 21:26 Q10M [facility] Home Medications Medication Instructions Recorded Confirmed Last Taken Type ascorbic acid (vitamin C) 500 mg 500 mg PO QAM 02/19/20 05/26/20 Unknown History tablet aspirin 81 mg tablet,delayed 81 mg PO BEDTIME 02/19/20 05/26/20 Unknown History release blood sugar diagnostic #10 ea 02/19/20 05/26/20 Unknown History cholecalciferol (vitamin D3) 50 50 mcg PO QAM 02/19/20 05/26/20 Unknown History mcg (2,000 unit) tablet ferrous sulfate 325 mg (65 mg 325 mg PO QAM 02/19/20 05/26/20 Unknown History iron) tablet hydrocodone 5 mg-acetaminophen 325 1 tab PO Q8H PRN 02/19/20 05/26/20 Unknown History mg tablet lancets 33 gauge #100 ea 02/19/20 05/26/20 Unknown History lisinopril 20 1 tab PO QAM 02/19/20 05/26/20 Unknown History mg-hydrochlorothiazide 25 mg tablet omeprazole 20 mg capsule,delayed 20 mg PO DAILY 02/19/20 05/26/20 Unknown History release pen needle, diabetic 32 gauge x #50 ea 02/19/20 05/26/20 Unknown History tamsulosin 0.4 mg capsule 0.4 mg PO DAILY 02/19/20 05/26/20 Unknown History atorvastatin 40 mg tablet 40 mg PO tab 03/25/20 05/26/20 Unknown History gabapentin 300 mg capsule 300 mg PO cap 04/28/20 05/26/20 Unknown History pen needle, diabetic 31 gauge x #1200 ea 04/28/20 05/26/20 Unknown History 09/07 Physical Exam Vital Signs: Last Vital Signs Temp 97.3 F 06/14/20 16:46 Pulse 107 H 06/14/20 16:56 Resp 16 06/14/20 16:56 BP 102/53 L 06/14/20 16:56 Pulse Ox 99 06/14/20 16:56 Body Mass Index 25.8 Const General: ill appearing, patient obtunded and tired appearing Nutritional Appearance: thin Orientation/consciousness: patient obtunded Eyes Other: pallor General: appearance normal, both eyes and all related structures Resp Effort & Inspection: normal respiratory effort Cardio Rate: regular rate Rhythm: regular rhythm Heart sounds: S1 normal heart sound present and S2 normal heart sound present GI Inspection: Yes normal to inspection Palpation (GI): Soft to palpation, Tenderness to palpation present (GI) in the RUQ; with no rebound tenderness and Hepatomegaly present Auscultation: Hyperactive bowel sounds present Rectal Exam - Male: Yes deferred Skin General skin exam: no rashes or lesions noted and dry skin Neuro General: patient obtunded Psych Appearance: disheveled Results Lab Results Result Diagrams: 06/14/20 11:04 06/14/20 11:04 Lab results: Chemistry 06/14/20 06/14/20 06/14/20 00:17 01:43 11:04 Sodium 143 143 147 H Potassium 6.8 H* D 6.3 H* 5.1 Carbon Dioxide 10 L* D 11 L 18 L BUN 115 H* D 112 H* 108 H* Creatinine 1.82 H 1.67 H 1.41 H Calcium 8.6 D 8.3 L 7.8 L D Hematology 06/14/20 06/14/20 06/14/20 00:17 01:43 11:04 WBC 8.6 8.0 9.3 Hgb 5.3 L* D 5.0 L* 7.9 L D Plt Count 285 D 265 206 Urinalysis 06/14/20 03:23 Urine Color YELLOW Urine Appearance HAZY Urine pH 5.0 Ur Specific Hooper 1.025 Urine Protein NEG Urine Glucose (UA) 250 H Urine Ketones NEG Urine Blood TRACE Urine Nitrite NEG Ur Leukocyte Esterase NEG Urine RBC 0 Urine WBC 0-2 Ur Squamous Epith Cells 1+ Assessment and Plan (1) Acute upper GI bleed: Status: Acute (2) Cirrhosis: Status: Acute (3) Anemia: Qualifiers: Anemia type: unspecified type Qualified Code(s): D64.9 - Anemia, unspecified Status: Acute (4) Acute kidney injury: Problem details: Acute blood loss anemia, with hypovolemic and circulatory compromise causing pre-renal ischemia. Hopefully just pre-renal azotemia but major risk for over ATN. Resuscitation promptly will differentiate the two clinically. Otherwise he has metabolic acidosis and hemorrhagic shock from blood loss. s/p variceal clipping. Status: Acute Plan: - resuscitation is gonzalez. Since he is acidotic will prioritize a Bicarb gtt - Avoid LR while hyperemic - Transfuse to defend the intravascular space - Pressors if refractory to volume resuscitation - U/A please - Ulytes please - Monitor UOP assess for bladder scans and retention
[2020-06-14 17:58] LABS: Glucose, Whole Blood 269 mg/dL (60-115)
[2020-06-14 18:16] LABS: MANUAL DIFF FLAG NO
[2020-06-14 18:18] LABS: Basophils Percent Auto 0.3 % (0-2); Imm Gran Abs Auto 0.05 X10*3/uL (0.00-0.03); Imm Gran Pct Auto 0.4 % (0.0-0.4); Lymphocytes Absolute Auto 1.5 X10*3/uL (1.2-4.9); Mean Corpuscular Hemoglobin 30.2 pg (27.0-33.0); Mean Corpuscular Volume 91.6 fL (80-98); Mean Platelet Volume 11.5 fL (9.4-12.4); Monocytes Absolute Auto 0.8 X10*3/uL (0.1-1.2); NRBC Pct Auto 0.2 /100WBC (0.0-0.2); Neutrophils Absolute Auto 9.3 X10*3/uL (2.0-8.3); Neutrophils Percent Auto 79.3 % (45-73); Platelet Count 196 X10*3/uL (160-400); Red Blood Count 2.25 X10*6/uL (4.60-5.80); Red Cell Distribution Width 15.7 % (11.0-16.0); White Blood Count 11.7 X10*3/uL (4.8-10.8)
[2020-06-14 18:22] LABS: Hemoglobin 6.8 g/dl (14.0-18.0)
[2020-06-14 18:23] LABS: Hematocrit 20.6 % (42-52)
[2020-06-14] MEDS: 0.9 % Sodium Chloride 1,000 ML 100 ML IVCONT (18:45)
--- NOTE | 2020-06-14 18:45 | P.EN_ITS ---
Event Note Date of Service: 06/14/20 Event Note: This patient with history of cirrhosis [facility] and acute blood loss and was transfuse 2 units of RBCs and continued to have evidence of active bleed manifested by burgundy color stool that was rather frequent and with blood pressure slowly trended down. Was given IV PPI, Albumin, octreotide and underwent emergent EGD and was noted to have a Dieulafoy's leseion in gastric cardia, (ashley grade Ia). 5 clips were applied with eventual hemostasis. Hemospray was also applied for extra insurance, perhaps overkill. H/H will be closely monitored and additional RBCs as needed. If rebleed may need to be [place] [facility] Discussed with ICU and will be in ICU as overflow and if worsen will be transfered to ICU service
[2020-06-14 19:00] LABS: Blood Urea Nitrogen 102 mg/dL (9-16); Calcium 7.6 mg/dL (8.4-10.2); Glucose Random 309 mg/dL (60-115)
[2020-06-14 19:05] LABS: Anion Gap 15 (12-20); Carbon Dioxide 20 mmol/L (22-29); Chloride 121 mmol/L (96-108); Creatinine Clr Calc Pharmacy 41.8; Estimated Glomerular Filt Rate 52; Potassium 4.5 mmol/L (3.3-5.1); Sodium 151 mmol/L (135-145)
[2020-06-14] MEDS: Octreotide Acetate 500 MCG in 0.9 % Sodium Chloride 500 ML 50.1 MCG IVCONT (19:46)
--- NOTE | 2020-06-14 20:32 | PC.NURSE ---
ASSUMED CARE AT 0645. PATIENT HAD LOW SBP IN 70'S AT START, DISCUSSED WITH MD, NEW ORDER FOR VASOPRESSIN 0.04, STARTED WITH GOOD EFFECT, BUT LOW BPS CONTINUED THROUGH HD TODAY, MD AWARE, LEVOPHED ALSO MAXED OUT AT 0.4. SBM LOW 68 AT TIMES TODAY, MD AWARE, AND WAS OK WITH MAPS >50, WHICH WAS MAINTAINED. PATIENT HAD 5 L OFF. PATIENT HAD SEDATION HOLIDAY, WAS ALMOST TRACKING, PUPILS BRISKLY REACTIVE TO LIGHT, POSITIVE COUGH AND GAG, MOVED FEET RANDOMLY, AND DID APPEAR TO FOLLOW COMMANDS, SQUEEZING LEFT HAND THREE TIMES WEAKLY TO COMMAND; MD AWARE, RESTARTED SEDATION IN EVENING PER MD ABOUT 1700. PATIENT WITH THREE NEW SKIN TEARS: LEFT UPPER POSTERIOR BACK, RIGHT UPPER POSTERIOR BACK, AND RIGHT INGUINAL CANAL AREA. SIGNIFICANT OTHER UPDATED AND SPOKE TO PATIENT OVER PORTABLE PHONE.
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
[2020-06-14 20:53] LABS: Glucose, Whole Blood 226 mg/dL (60-115)
[2020-06-15] VITALS (10 sets, daily range): BP systolic 105–132; BP diastolic 50–62; PULSE 100–113; RESP 12–14; TEMP 36.5–37.2; O2SAT 95–100
[2020-06-15] MEDS: Octreotide Acetate 500 MCG in 0.9 % Sodium Chloride 500 ML 50.1 MCG IVCONT ×3 (04:40→23:41)
[2020-06-15] MEDS: 0.9 % Sodium Chloride 1,000 ML 100 ML IVCONT (05:22)
[2020-06-15] MEDS: Pantoprazole Sodium 40 MG/10 ML VIAL IVPUSH ×2 (05:23→16:56)
--- NOTE | 2020-06-15 05:29 | PC.NURSE ---
ASSUMED CARE OF PT AT 1900. MONITOR WAS DISPLAYING AFIB WITH RVR 120'S-130'S. SBP 80'S. LEVOPHED AND VASOPRESSIN DRIPS INFUSING. DIGOXIN 0.125 MG IV GIVEN WITH 2ND DOSE AROUND 0100 AND 3RD DOSE DUE AT 0700 FOR A TOTAL OF 3 DOSES. HR CONTINUED SAME. LISA MIX AT BEDSIDE EARLY AND THEN DR SON AT BEDSIDE AT 2330. PT STARTED ON A DOUBLE CONCENTRATED NEOSYNEPHRINE WITH NO EFFECT ON BP. AMIODARONE LOADING DOSE IV AND THEN DRIP PER PROTOCOL. MONITOR CONTINUED AFIB, HR 120'S-150'S. SBP CONSISTENTLY 70'S AND THEN STARTED TO DROP TO 60'S. PT ALSO RECEIVED 2 BOTTLES OF ALBUMIN 100 ML 25%. WITH NO RESPONSE WITH VASO, LEVO AND SUDHAKAR AND CONTINUED RAPID AFIB, THE OUTLOOK WAS GRIM AND THE PT'S SIGNIFICANT OTHER LAUREN WAS CALLED BY LISA MIX AND SHE CAME IN TO SEE HIM. SHE ARRIVED AT 0330. SHE SPOKE MORE WITH THE NUTRITIONIST AND MADE THE DECISION FOR DNR. O2 SATS ARE HIGH 90'S ON AC VENT SETTINGS. GIRLFRIEND CAME AND LEFT TO GO HOME AT THIS TIME.
[2020-06-15 05:31] LABS: Hemoglobin 8.5 g/dl (14.0-18.0); Mean Corpuscular HGB Conc 32.7 g/dl (31.0-36.0); Mean Corpuscular Hemoglobin 29.7 pg (27.0-33.0); Mean Corpuscular Volume 90.9 fL (80-98); Mean Platelet Volume 11.2 fL (9.4-12.4); NRBC Pct Auto 0.3 /100WBC (0.0-0.2); Platelet Count 158 X10*3/uL (160-400); Red Blood Count 2.86 X10*6/uL (4.60-5.80); Red Cell Distribution Width 15.9 % (11.0-16.0); White Blood Count 14.5 X10*3/uL (4.8-10.8)
[2020-06-15 07:13] LABS: Glucose, Whole Blood 218 mg/dL (60-115)
--- NOTE | 2020-06-15 07:13 | PC.NURSE ---
CARED FOR PT ON OVERNIGHT SHIFT [phone]. PT WEAK AND LETHARGIC. SLEPT IN NAPS. AWKENS TO NAME. ANSWERS QUESTIONS APPROPRIATELY. SLEEP IS SLOW AND SOFT SPOKEN. PT IS VAGUE. THOUGHT HE WAS IN THE EMERGENCY ROOM. CALM AND COOPERATIVE. INCONTINENT OF BURGUNDY STOOLS SEVERAL TIMES MOD AMT. NO N OR V. REVEIVED 2 UNITS OF LRBC'S AND 1 UNIT OF PLTS OVERNIGHT. LABS DRAWN THIS MORNING. HGB IMPROVED FROM 6.8 TO 8.5. OCTREOTIDE INFUSING ORDERED. PANTOPRAZOLE ORDERED. PT TAKING ICE CHIPS PO.
--- NOTE | 2020-06-15 07:27 | HO.PM.IMPN ---
Subjective Subjective Date of Service: 06/15/20 Interval History: Seen in f/u for GIB, acute blood loss anemia. No further bleeding noted overnight, hemodynamically stable and H/H has trended up Review of Systems Gen: no fever Resp: no sob, no cough CV: no chest, no SHELBY, no leg edema GI: No n/v, no abd pain, residual old blood in stool Neuro: No confusion Physical Exam Vital Signs: Vital Signs: Last Vital Signs Temp 97.7 F 06/15/20 04:00 Pulse 104 H 06/15/20 04:00 Resp 12 06/15/20 04:00 BP 113/60 06/15/20 04:00 Pulse Ox 100 06/15/20 04:00 Body Mass Index 25.8 General: AO X 3, no acute distress Resp: CTA bilateral CVS: S1,S2,RRR GI: +BS, NT, moderate distention Skin: No rash Neuro: motor grossly intact Psych: appropriate affect Objective Data Current Medications Generic Name Dose Route Start Last Admin Trade Name Freq PRN Reason Stop Dose Admin Sodium Chloride 1,000 mls @ 100 mls/hr 06/14/20 16:30 06/15/20 05:22 Ns IVCONT 100 mls/hr .Q10H ROJAS Administration Octreotide Acetate 500 mcg/ 501 mls @ 50.1 mls/hr 06/14/20 19:00 06/15/20 04:40 Sodium Chloride IVCONT 50 mcg/hr .Q10H ROJAS 50.1 mls/hr Administration 50 MCG/HR Insulin Glargine 10 unit 06/14/20 14:35 06/14/20 18:45 Insulin Glargine,Hum.Rec.Anlog 100 Unit/Ml 10 Ml Vial SUBCUT Not Given DAILY [facility] Insulin Human Lispro 0 unit 06/14/20 14:30 06/15/20 04:41 Insulin Lispro 100 Unit/Ml 3 Ml Vial SUBCUT Not Given Q6H [facility] Protocol Pantoprazole Sodium 40 mg 06/14/20 06:30 06/15/20 05:23 Pantoprazole Sodium 40 Mg/10 Ml Vial IVPUSH 40 mg BID@0630,1630 ROJAS Administration Labs CBC & Chem 7: 06/15/20 05:17 06/14/20 18:10 Assessment and Plan (1) Anemia: Status: Acute Assessment and Plan: A 70-year-old male with a past medical history of hypertension, hyperlipidemia, diabetes, liver cirrhosis, history portal vein thrombosis-not on anticoagulation, history of gallstones presented admitted d/t massive rectal bleeding with acute blood loss anemia that required multiple blood transfusion, electrolytes abnormalities, and renal failure. Underwent emergent EGD and found to have visible bleeding vessel (Dieulafoy lesion) in the stomach that was amenable to hemostasis, very high to morbidity and mortality. Acute upper GI Bleeding d/t bleeding vessel seen on EGD 06/[address] Brody with successful hemostasis achieved by clipping. No further bleeding overnight and hemodynamically holding. -Continue to monitor for rebleed -Stop Octreotide, noted to have varices but no bleeding -GI following. -Start liquid diet today -IV PPI for one more day Acute Blood loss anemia--s/p 5 units of RBC on 06/14, 1 unit of Plasma Abdominal pain: h/o gallstones but no gallstone, some tenderness over the liver area. Seen by Surgery (Rhett), no further w/u TREMAYNE: Likely pre-renal, renal hypoperfusion. Cr is 1.82 on 06/14 and 1.36 on 06/15. Elevated BUN from byproducts of upper GIB and should return to normal. Nephrology following Hyperkalemia: Hyperkalemia 6.3 on admission and now 4.5 06/15. Nephrology following Metabolic acidosis: Bicab 10 and today 06/15 19, has been on bicab drip that can be discontinued at this time. Hypernatremia likely from Normal Saline now discontinued, will encourage oral water if not then D5 Diabetes--While NPO, hold Lantus, SSI. Resume Lantus once eating. Transaminitis: The patient has known liver cirrhosis. Hold home statin. Monitor levels. DVT prophylaxis: SCD boots Code status: Full code
[2020-06-15] MEDS: Insulin Lispro 100 UNIT/ML 3 ML VIAL SUBCUT ×4 (08:58→21:26)
[2020-06-15] MEDS: Insulin Glargine,Hum.rec.anlog 100 UNIT/ML 10 ML VIAL 10 UNIT SUBCUT (08:58)
[2020-06-15] MEDS: cefTRIAXone sodium 1 GM in 0.9 % Sodium Chloride 50 ML IV (10:42)
[2020-06-15 12:13] LABS: Glucose, Whole Blood 216 mg/dL (60-115)
--- NOTE | 2020-06-15 13:18 | P.PNNP_ITS ---
Subjective Subjective Date of Service: 06/15/20 Interval history: Admitted and consulted lastnight. Cr stable with hemodynamic control Remains on octeotride after endoscopy and variceal clipping BUN is a hallmark of just how much blood he ingested Cr stable Hypernatremia profound, thirsty as a result. Physical Exam Vital Signs: Vital Signs: Last Vital Signs Temp 99.0 F 06/15/20 11:52 Pulse 113 H 06/15/20 11:52 Resp 12 06/15/20 11:52 BP 122/52 L 06/15/20 11:52 Pulse Ox 96 06/15/20 11:52 Body Mass Index 25.8 Const: General: comfortable and no acute distress Nutritional Appearance: thin Eyes: Other: subconjunctival pallor General: appearance normal, both eyes and all related structures Resp: Effort & Inspection: normal respiratory effort Cardio: Rate: regular rate Rhythm: regular rhythm Heart sounds: S1 normal heart sound present and S2 normal heart sound present GI: Inspection: Yes normal to inspection Palpation (GI): Soft to palpation, Tenderness to palpation present (GI) in the RUQ; with no rebound tenderness and Hepatomegaly present Auscultation: Hyperactive bowel sounds present Rectal Exam - Male: Yes deferred Skin: General skin exam: no rashes or lesions noted and dry skin Psych: Appearance: disheveled Objective Data Labs CBC & Chem 7: 06/15/20 05:17 06/14/20 18:10 Labs: Laboratory Results - last 24 hr 06/14/20 06/14/20 06/14/20 01:43 14:00 16:31 WBC RBC Hgb Hct MCV MCH MCHC RDW Plt Count MPV Immature Gran % (Auto) Neut % (Auto) Lymph % (Auto) [place] % (Auto) Eos % (Auto) Baso % (Auto) Lymph # (Auto) [place] # (Auto) Eos # (Auto) Baso # (Auto) Abs Immat Gran (auto) Absolute Neuts (auto) Absolute Nucleated RBC Nucleated RBC % (auto) Sodium Potassium Chloride Carbon Dioxide Anion Gap BUN Creatinine Estim Creat Clear Calc Estimated GFR POC Glucose 400 H* 286 H Random Glucose Calcium Blood Type O Positive Antibody Screen NEGATIVE Crossmatch See Detail 06/14/20 06/14/20 06/14/20 17:54 18:10 18:10 WBC 11.7 H RBC 2.25 L Hgb 6.8 L* Hct 20.6 L* MCV 91.6 MCH 30.2 MCHC 33.0 RDW 15.7 Plt Count 196 MPV 11.5 Immature Gran % (Auto) 0.4 Neut % (Auto) 79.3 H Lymph % (Auto) 13.0 L [place] % (Auto) 7.0 Eos % (Auto) 0.0 Baso % (Auto) 0.3 Lymph # (Auto) 1.5 [place] # (Auto) 0.8 Eos # (Auto) 0.0 Baso # (Auto) 0.0 Abs Immat Gran (auto) 0.05 H Absolute Neuts (auto) 9.3 H Absolute Nucleated RBC 0.020 H Nucleated RBC % (auto) 0.2 Sodium 151 H Potassium 4.5 Chloride 121 H Carbon Dioxide 20 L Anion Gap 15 BUN 102 H* Creatinine 1.36 Estim Creat Clear Calc 41.8 Estimated GFR 52 POC Glucose 269 H Random Glucose 309 H D Calcium 7.6 L Blood Type Antibody Screen Crossmatch 06/14/20 06/15/20 06/15/20 20:49 05:17 07:08 WBC 14.5 H RBC 2.86 L D Hgb 8.5 L D Hct 26.0 L D MCV 90.9 MCH 29.7 MCHC 32.7 RDW 15.9 Plt Count 158 L MPV 11.2 Immature Gran % (Auto) Neut % (Auto) Lymph % (Auto) [place] % (Auto) Eos % (Auto) Baso % (Auto) Lymph # (Auto) [place] # (Auto) Eos # (Auto) Baso # (Auto) Abs Immat Gran (auto) Absolute Neuts (auto) Absolute Nucleated RBC 0.050 H Nucleated RBC % (auto) 0.3 H Sodium Potassium Chloride Carbon Dioxide Anion Gap BUN Creatinine Estim Creat Clear Calc Estimated GFR POC Glucose 226 H 218 H Random Glucose Calcium Blood Type Antibody Screen Crossmatch 06/15/20 11:07 WBC RBC Hgb Hct MCV MCH MCHC RDW Plt Count MPV Immature Gran % (Auto) Neut % (Auto) Lymph % (Auto) [place] % (Auto) Eos % (Auto) Baso % (Auto) Lymph # (Auto) [place] # (Auto) Eos # (Auto) Baso # (Auto) Abs Immat Gran (auto) Absolute Neuts (auto) Absolute Nucleated RBC Nucleated RBC % (auto) Sodium Potassium Chloride Carbon Dioxide Anion Gap BUN Creatinine Estim Creat Clear Calc Estimated GFR POC Glucose 216 H Random Glucose Calcium Blood Type Antibody Screen Crossmatch Assessment & Plan Assessment and plan (1) Acute upper GI bleed: Problem details: Octeotride ongoing Status: Acute (2) Cirrhosis: Problem details: appreciate GI recs Status: Acute (3) Anemia: Problem details: Transfuse PRN No need for EPO Status: Acute (4) Acute kidney injury: Problem details: Acute blood loss anemia, with hypovolemic and circulatory compromise causing pr e-renal ischemia. Hopefully just pre-renal azotemia but mirian of Cr after resuscitation tells me he may have some mild ATN. Either way Cr is not on the rise, expect a good prognosis. Other differentials like obstruction and GN less likely. Status: Acute Assessment and Plan: Plan: - Hemodynamically stable, no further need for resuscitation unless he requires transfusion - euvolemic no need for diuretics - focus on Hypernatremia for now (5) Hypernatremia: Problem details: 3.1L free water deficit Status: Acute Assessment and Plan: Plan: - please start 150ml/hr of D5/W Time Spent With Patient Time: Total time spent is greater than 50% in coordination of care (as documented) at patient's floor/unit and/or counseling patient:
[2020-06-15] MEDS: Dextrose 5 % and 0.45 % NaCl 1,000 ML 150 ML IVCONT ×2 (14:01→20:05)
--- NOTE | 2020-06-15 14:28 | PM.GIPN ---
Subjective Subjective Date of Service: 06/15/20 Interval History: no abdo pain today lethargic no nausea or vomiting no chest pain or sob no further bloody stool overnight per RN Physical Exam Vital Signs: Vital Signs: Last Vital Signs Temp 99.0 F 06/15/20 11:52 Pulse 113 H 06/15/20 11:52 Resp 12 06/15/20 11:52 BP 122/52 L 06/15/20 11:52 Pulse Ox 96 06/15/20 11:52 Body Mass Index 25.8 Const: General: comfortable, no acute distress, ill appearing, lethargic and tired appearing Nutritional Appearance: thin Orientation/consciousness: lethargic Eyes: Other: subconjunctival pallor General: appearance normal, both eyes and all related structures Resp: Effort & Inspection: normal respiratory effort Cardio: Rate: regular rate Rhythm: regular rhythm Heart sounds: S1 normal heart sound present and S2 normal heart sound present Skin: General skin exam: no rashes or lesions noted and dry skin Neuro: General: moves all extremities Extrem: General: Yes normal to inspection Objective Data Labs CBC & Chem 7: 06/15/20 05:17 06/14/20 18:10 Labs: Laboratory Results - last 24 hr 06/14/20 06/14/20 06/14/20 01:43 16:31 17:54 WBC RBC Hgb Hct MCV MCH MCHC RDW Plt Count MPV Immature Gran % (Auto) Neut % (Auto) Lymph % (Auto) [place] % (Auto) Eos % (Auto) Baso % (Auto) Lymph # (Auto) [place] # (Auto) Eos # (Auto) Baso # (Auto) Abs Immat Gran (auto) Absolute Neuts (auto) Absolute Nucleated RBC Nucleated RBC % (auto) Sodium Potassium Chloride Carbon Dioxide Anion Gap BUN Creatinine Estim Creat Clear Calc Estimated GFR POC Glucose 286 H 269 H Random Glucose Calcium Blood Type O Positive Antibody Screen NEGATIVE Crossmatch See Detail 06/14/20 06/14/20 06/14/20 18:10 18:10 20:49 WBC 11.7 H RBC 2.25 L Hgb 6.8 L* Hct 20.6 L* MCV 91.6 MCH 30.2 MCHC 33.0 RDW 15.7 Plt Count 196 MPV 11.5 Immature Gran % (Auto) 0.4 Neut % (Auto) 79.3 H Lymph % (Auto) 13.0 L [place] % (Auto) 7.0 Eos % (Auto) 0.0 Baso % (Auto) 0.3 Lymph # (Auto) 1.5 [place] # (Auto) 0.8 Eos # (Auto) 0.0 Baso # (Auto) 0.0 Abs Immat Gran (auto) 0.05 H Absolute Neuts (auto) 9.3 H Absolute Nucleated RBC 0.020 H Nucleated RBC % (auto) 0.2 Sodium 151 H Potassium 4.5 Chloride 121 H Carbon Dioxide 20 L Anion Gap 15 BUN 102 H* Creatinine 1.36 Estim Creat Clear Calc 41.8 Estimated GFR 52 POC Glucose 226 H Random Glucose 309 H D Calcium 7.6 L Blood Type Antibody Screen Crossmatch 06/15/20 06/15/20 06/15/20 05:17 07:08 11:07 WBC 14.5 H RBC 2.86 L D Hgb 8.5 L D Hct 26.0 L D MCV 90.9 MCH 29.7 MCHC 32.7 RDW 15.9 Plt Count 158 L MPV 11.2 Immature Gran % (Auto) Neut % (Auto) Lymph % (Auto) [place] % (Auto) Eos % (Auto) Baso % (Auto) Lymph # (Auto) [place] # (Auto) Eos # (Auto) Baso # (Auto) Abs Immat Gran (auto) Absolute Neuts (auto) Absolute Nucleated RBC 0.050 H Nucleated RBC % (auto) 0.3 H Sodium Potassium Chloride Carbon Dioxide Anion Gap BUN Creatinine Estim Creat Clear Calc Estimated GFR POC Glucose 218 H 216 H Random Glucose Calcium Blood Type Antibody Screen Crossmatch Progress Note: A&P Assessment and plan (1) Acute upper GI bleed: Problem details: Octeotride ongoing Status: Acute (2) Cirrhosis: Problem details: appreciate GI recs Status: Acute Assessment and Plan: 1/ Acute blood loss anemia from ashley grade Ia Dieulafoy lesion, s/p clipping and hemospray 2/ esophageal varices with portal vein thrombosis, not candidate for anti coag due to recent bleeding PLAN: 1/ Clear liquid diet today, advance tomorrow 2/ PPI BID, IV for 72 hrs then PO 3/ cont with octreotide gtt for 24 hrs 4/ rept egd on tue or tue for esophgeal variceal banding 5/ MRI liver protocol or triple phase CT to r/o HCC within next few days Fall Risk Details Current Medications: Current Medications Generic Name Dose Route Start Last Admin Trade Name Jana PRN Reason Stop Dose Admin Octreotide Acetate 500 mcg/ 501 mls @ 50.1 mls/hr 06/14/20 19:00 06/15/20 04:40 Sodium Chloride IVCONT 50 mcg/hr .Q10H ROJAS 50.1 mls/hr Administration 50 MCG/HR Ceftriaxone Sodium 1 gm/ 50 mls @ 100 mls/hr 06/15/20 09:30 06/15/20 11:12 Sodium Chloride IV Infused Q24H ROJAS Infusion Dextrose/Sodium Chloride 1,000 mls @ 150 mls/hr 06/15/20 13:30 06/15/20 14:01 D51/2ns IVCONT 06/16/20 02:49 150 mls/hr .Q6H40M ROJAS Administration Insulin Glargine 10 unit 06/14/20 14:35 06/15/20 08:58 Insulin Glargine,Hum.Rec.Anlog 100 Unit/Ml 10 Ml Vial SUBCUT 10 unit DAILY ROJAS Administration Insulin Human Lispro 0 unit 06/15/20 16:30 Insulin Lispro 100 Unit/Ml 3 Ml Vial SUBCUT QIDACHS ROJAS Protocol Pantoprazole Sodium 40 mg 06/14/20 06:30 06/15/20 05:23 Pantoprazole Sodium 40 Mg/10 Ml Vial IVPUSH 40 mg BID@0630,1630 ROJAS Administration Time Spent With Patient Time: Total time spent is greater than 50% in coordination of care (as documented) at patient's floor/unit and/or counseling patient: Time with patient: 15 - 24 minutes
--- NOTE | 2020-06-15 14:59 | MHC.CM.PN ---
pt lives alone in apt. he is independent in his care. dc plan is home c vna. a ref. has been made pt will try to have a freind provide transport at dc otherwise he may need help c a ride. cm to cont. to follow.
[2020-06-15 16:17] LABS: Glucose, Whole Blood 219 mg/dL (60-115)
[2020-06-15 21:15] LABS: Glucose, Whole Blood 204 mg/dL (60-115)
[2020-06-16] VITALS: BP 122/66; PULSE 100; RESP 20; TEMP 37.3; O2SAT 100
[2020-06-16 03:15] LABS: Estimated Average Glucose 134 mg/dL; Hemoglobin A1c % 6.3 %
[2020-06-16 03:17] VITALS: BP 117/66; PULSE 100; RESP 16; TEMP 36.8; O2SAT 96
[2020-06-16 05:30] LABS: Hematocrit 23.2 % (42-52); Hemoglobin 7.4 g/dl (14.0-18.0); Mean Corpuscular HGB Conc 31.9 g/dl (31.0-36.0); Mean Platelet Volume 11.2 fL (9.4-12.4); NRBC Pct Auto 0.7 /100WBC (0.0-0.2); Platelet Count 167 X10*3/uL (160-400); Red Blood Count 2.55 X10*6/uL (4.60-5.80); Red Cell Distribution Width 16.6 % (11.0-16.0); White Blood Count 12.6 X10*3/uL (4.8-10.8)
[2020-06-16 06:08] LABS: Anion Gap 14 (12-20); Blood Urea Nitrogen 55 mg/dL (9-16); Calcium 7.4 mg/dL (8.4-10.2); Carbon Dioxide 20 mmol/L (22-29); Chloride 126 mmol/L (96-108); Creatinine Clr Calc Pharmacy 55.7; Estimated Glomerular Filt Rate > 60; Glucose Random 217 mg/dL (60-115); Potassium 3.6 mmol/L (3.3-5.1); Sodium 156 mmol/L (135-145)
[2020-06-16] MEDS: Pantoprazole Sodium 40 MG/10 ML VIAL IVPUSH ×2 (06:08→17:03)
[2020-06-16 08:00] VITALS: BP 116/64; PULSE 13; RESP 14; TEMP 37.2; O2SAT 98
[2020-06-16] MEDS: Octreotide Acetate 500 MCG in 0.9 % Sodium Chloride 500 ML 50.1 MCG IVCONT (08:39)
[2020-06-16] MEDS: cefTRIAXone sodium 1 GM in 0.9 % Sodium Chloride 50 ML IV (08:40)
[2020-06-16] MEDS: Insulin Lispro 100 UNIT/ML 3 ML VIAL SUBCUT ×2 (08:42→12:28)
[2020-06-16] MEDS: Insulin Glargine,Hum.rec.anlog 100 UNIT/ML 10 ML VIAL 10 UNIT SUBCUT (08:42)
[2020-06-16 08:45] LABS: Glucose, Whole Blood 220 mg/dL (60-115)
--- NOTE | 2020-06-16 09:57 | P.CDIC_ITS ---
CDI Concurrent Query Service Date: 06/16/20 Documentation Clarification: Please clarify if you are treating a proba ble/suspected/likely or confirmed: Malnutrition, mild, moderate or severe Nutritional deficiency Please specify if known or other Provider Response: Moderate Protein-Calorie Malnutrition PLEASE DO NOT DELETE/MODIFY EXISTING CONTENT Additional information is needed in order to code to the highest accuracy and appropriate Severity of Illness (SOI). Please clarify the information noted below in your progress notes and discharge summary. Risk Factors/Clinical Indicators/Treatments Albumin 2.8 L Total protein 5.9 L Thin, disheveled, weakness CDS: Caro Pardo CCS, CDIS Contact Number: [phone] Please Review the information above and exercise your independent professional judgment in responding to the query. If you concur, pleas document in the PROGRESS NOTES and DISCHARGE SUMMARY. If you do not agree with the query, please document in the query above. THIS QUERY IS PART OF THE PERMANENT MEDICAL RECORD
[2020-06-16] MEDS: Dextrose 5 % 1,000 ML 75 ML IVCONT ×2 (10:33→23:00)
--- NOTE | 2020-06-16 11:05 | HO.PM.IMPN ---
Subjective Subjective Date of Service: 06/16/20 Interval History: the patient was seen and evaluated this morning Laying in bed, altered mentation, not interactive in a nonverbal Abdomen distended, still having black stools No reported fever, chills or shortness of breath No reported other overnight events. Systemic review: Non verbal to communicate Physical Exam Vital Signs: Vital Signs: Last Vital Signs Temp 98.9 F 06/16/20 08:00 Pulse 13 L 06/16/20 08:00 Resp 14 06/16/20 08:00 BP 116/64 06/16/20 08:00 Pulse Ox 98 06/16/20 08:00 Body Mass Index 25.8 Const: Other: Constitutional : Altered, not oriented, not in distress Neck : Normal inspection, Supple Cardiovascular : RRR, S1 S2, trace lower extremity edema Respiratory : Fair bilateral air entry, no crackles, wheezes or rhonchi Gastrointestinal: Abdomen is distended, soft, lax, Normal bowel sounds, seems to have some tenderness , filled with ascites the Skin : Warm/Dry, No rash Neurological : Altered, not oriented, No focal deficit Objective Data Current Medications Generic Name Dose Route Start Last Admin Trade Name Freq PRN Reason Stop Dose Admin Octreotide Acetate 500 mcg/ 501 mls @ 50.1 mls/hr 06/14/20 19:00 06/16/20 08:39 Sodium Chloride IVCONT 50 mcg/hr .Q10H ROJAS 50.1 mls/hr Administration 50 MCG/HR Ceftriaxone Sodium 1 gm/ 50 mls @ 100 mls/hr 06/15/20 09:30 06/16/20 09:27 Sodium Chloride IV Infused Q24H ROJAS Infusion Dextrose 1,000 mls @ 75 mls/hr 06/16/20 08:30 06/16/20 10:33 D5w IVCONT 75 mls/hr .[id number] ROJAS Administration Insulin Glargine 10 unit 06/14/20 14:35 06/16/20 08:42 Insulin Glargine,Hum.Rec.Anlog 100 Unit/Ml 10 Ml Vial SUBCUT 10 unit DAILY ROJAS Administration Insulin Human Lispro 0 unit 06/15/20 16:30 06/16/20 08:42 Insulin Lispro 100 Unit/Ml 3 Ml Vial SUBCUT 4 unit QIDACHS ROJAS Administration Protocol Pantoprazole Sodium 40 mg 06/14/20 06:30 06/16/20 06:08 Pantoprazole Sodium 40 Mg/10 Ml Vial IVPUSH 40 mg BID@0630,1630 ROJAS Administration Labs CBC & Chem 7: 06/16/20 05:15 06/16/20 05:15 Assessment and Plan (1) Anemia: Status: Acute (2) Hypernatremia: Status: Acute (3) Acute kidney injury: Status: Acute (4) Acute hyperkalemia: Status: Acute (5) Acute hyperglycemia: Status: Acute (6) Acute upper GI bleed: Problem details: Octeotride ongoing Status: Acute (7) Cirrhosis: Problem details: appreciate GI recs Status: Acute (8) Blood loss anemia: Status: Acute (9) Type 2 diabetes mellitus with hyperglycemia: Status: Acute Assessment and Plan: A 70-year-old male with a past medical history of hypertension, hyperlipidemia, diabetes, liver cirrhosis, history portal vein thrombosis-not on anticoagulation, history of gallstones presented admitted d/t massive rectal bleeding with acute blood loss anemia that required multiple blood transfusion, electrolytes abnormalities, and renal failure. Underwent emergent EGD and found to have visible bleeding vessel (Dieulafoy lesion) in the stomach that was amenable to hemostasis, very high to morbidity and mortality. Metabolic encephalopathy Likely 2/2 Hypernatremia Na 156 today 2/2 AMS and decrease PO intake start D5 follow BMP Acute upper GI Bleeding d/t bleeding vessel seen on EGD 06/[address] Brody with successful hemostasis achieved by clipping. Still passing dark stools, no blood noticed Continue to monitor for rebleed Stop Octreotide, noted to have varices but no bleeding GI following. liquid diet today IV PPI for one more day Acute Blood loss anemia s/p 5 units of RBC on 06/14, 1 unit of Plasma Hb 7.5 To repeat given continue to have melena might need another transfusion Abdominal pain: h/o gallstones but no gallstone, some tenderness over the liver area. Seen by Surgery (Rhett), no further w/u Continue ceftriaxone TREMAYNE Likely pre-renal Cr return to normal. Nephrology following Hyperkalemia Resolved Metabolic acidosis: Bicarb improved to 20 post bicab drip Diabetes clears 10 units Lantus SSI Transaminitis Portal V thrombosis, avoid blood thinners with bleed The patient has known liver cirrhosis. Hold home statin. Monitor levels. Moderate protein malnutrition to add Ensure DVT prophylaxis: SCD boots Code status: Full code
[2020-06-16 11:44] LABS: Glucose, Whole Blood 165 mg/dL (60-115)
[2020-06-16 12:00] VITALS: BP 125/72; PULSE 100; TEMP 36.9; O2SAT 98
[2020-06-16 12:16] LABS: Alpha Fetoprotein 158.4 ng/mL (<6.1)
--- NOTE | 2020-06-16 13:42 | MHC.CM.PN ---
DP MALE 70 DX TREMAYNE DP HOME WITH [facility]. BROTHER WILL PROVIDE TRANSPORTATION HOME. CM WILL FOLLOW.
[2020-06-16 15:09] LABS: Hemoglobin 7.6 g/dl (14.0-18.0); Mean Corpuscular HGB Conc 31.7 g/dl (31.0-36.0); Mean Corpuscular Volume 91.6 fL (80-98); Mean Platelet Volume 10.9 fL (9.4-12.4); NRBC Pct Auto 0.4 /100WBC (0.0-0.2); Platelet Count 167 X10*3/uL (160-400); Red Blood Count 2.62 X10*6/uL (4.60-5.80); Red Cell Distribution Width 17.1 % (11.0-16.0); White Blood Count 11.9 X10*3/uL (4.8-10.8)
[2020-06-16 15:43] LABS: Anion Gap 12 (12-20); Blood Urea Nitrogen 46 mg/dL (9-16); Calcium 7.8 mg/dL (8.4-10.2); Carbon Dioxide 23 mmol/L (22-29); Chloride 127 mmol/L (96-108); Creatinine Clr Calc Pharmacy 59.8; Estimated Glomerular Filt Rate > 60; Glucose Random 128 mg/dL (60-115); Potassium 3.6 mmol/L (3.3-5.1)
[2020-06-16 15:49] LABS: Sodium 158 mmol/L (135-145)
[2020-06-16 16:00] VITALS: BP 125/72; PULSE 106; RESP 14; TEMP 37.3; O2SAT 97; O2SAT 98
--- NOTE | 2020-06-16 16:32 | PM.PNNEP ---
Subjective Subjective Date of Service: 06/16/20 Interval history: the patient was seen and evaluated this morning Laying in bed, altered mentation- nonverbal Abdomen distended, still having black stools No reported fever, chills or shortness of breath No reported other overnight events. Systemic review: Non verbal to communicate Physical Exam Vital Signs: Vital Signs: Last Vital Signs Temp 99.1 F 06/16/20 16:00 Pulse 106 H 06/16/20 16:00 Resp 14 06/16/20 16:00 BP 125/72 06/16/20 16:00 Pulse Ox 98 06/16/20 16:00 Body Mass Index 25.8 Const: General: confusion Orientation/consciousness: confusion HENMT: Head: Yes normocephalic and Yes atraumatic Eyes: Pupils: Equal, round and reactive pupils present EOM: EOMs intact bilaterally Neck: Neck: Yes normal visual inspection and Yes supple Chest: Chest palpation & inspection: normal inspection of the chest Resp: Effort & Inspection: normal respiratory effort Cardio: Jugular venous distension: no JVD Rhythm: regular rhythm Heart sounds: S1 normal heart sound present and S2 normal heart sound present GI: Inspection: Yes distended Auscultation: normal bowel sounds Neuro: General: confusion Cranial nerves: Yes Equal, round and reactive pupils present Objective Data Labs CBC & Chem 7: 06/16/20 14:52 06/16/20 14:52 Labs: Laboratory Results - last 24 hr 06/14/20 06/14/20 06/15/20 00:17 11:04 21:11 WBC RBC Hgb Hct MCV MCH MCHC RDW Plt Count MPV Absolute Nucleated RBC Nucleated RBC % (auto) Smear Path Review SEE NOTE Sodium Potassium Chloride Carbon Dioxide Anion Gap BUN Creatinine Estim Creat Clear Calc Estimated GFR POC Glucose 204 H Random Glucose Estimat Average Glucose Hemoglobin A1c % Calcium Alpha Fetoprotein 158.4 H 06/15/20 06/16/20 06/16/20 21:55 05:15 05:15 WBC 12.6 H RBC 2.55 L Hgb 7.4 L Hct 23.2 L MCV 91.0 MCH 29.0 MCHC 31.9 RDW 16.6 H Plt Count 167 MPV 11.2 Absolute Nucleated RBC 0.090 H Nucleated RBC % (auto) 0.7 H Smear Path Review Sodium 156 H Potassium 3.6 Chloride 126 H Carbon Dioxide 20 L Anion Gap 14 BUN 55 H Creatinine 1.02 Estim Creat Clear Calc 55.7 Estimated GFR > 60 POC Glucose Random Glucose 217 H Estimat Average Glucose 134 Hemoglobin A1c % 6.3 Calcium 7.4 L Alpha Fetoprotein 06/16/20 06/16/20 06/16/20 08:41 11:41 14:52 WBC RBC Hgb Hct MCV MCH MCHC RDW Plt Count MPV Absolute Nucleated RBC Nucleated RBC % (auto) Smear Path Review Sodium 158 H Potassium 3.6 Chloride 127 H Carbon Dioxide 23 Anion Gap 12 BUN 46 H Creatinine 0.95 Estim Creat Clear Calc 59.8 Estimated GFR > 60 POC Glucose 220 H 165 H Random Glucose 128 H D Estimat Average Glucose Hemoglobin A1c % Calcium 7.8 L Alpha Fetoprotein 06/16/20 14:52 WBC 11.9 H RBC 2.62 L Hgb 7.6 L Hct 24.0 L MCV 91.6 MCH 29.0 MCHC 31.7 RDW 17.1 H Plt Count 167 MPV 10.9 Absolute Nucleated RBC 0.050 H Nucleated RBC % (auto) 0.4 H Smear Path Review Sodium Potassium Chloride Carbon Dioxide Anion Gap BUN Creatinine Estim Creat Clear Calc Estimated GFR POC Glucose Random Glucose Estimat Average Glucose Hemoglobin A1c % Calcium Alpha Fetoprotein Assessment & Plan Time Spent With Patient Time: Assessment and plan (1) Hypernatremia - DXue to free water deficit - No Polyuria - Doubt DI (2 ) Acute kidney injury 3. ESLD 4. Anemia - GI bleed Plan: - Hemodynamically stable, nPRBC PRN - euvolemic no need for diuretics - focus on Hypernatremia for now- D5W at 75 ml / hr - May need to ncrease to 100mml - Avoid nephrotoxins f/u Na Thx Dr. Goodwin Procedures Date of Service Date of Service: 06/16/20
[2020-06-16 17:03] LABS: Glucose, Whole Blood 139 mg/dL (60-115)
[2020-06-16 19:56] VITALS: BP 114/63; PULSE 99; RESP 16; TEMP 36.7; O2SAT 96
[2020-06-16 21:23] LABS: Glucose, Whole Blood 125 mg/dL (60-115)
[2020-06-16 23:13] LABS: Anion Gap 15 (12-20); Blood Urea Nitrogen 39 mg/dL (9-16); Calcium 7.7 mg/dL (8.4-10.2); Carbon Dioxide 21 mmol/L (22-29); Chloride 126 mmol/L (96-108); Creatinine Clr Calc Pharmacy 65.4; Estimated Glomerular Filt Rate > 60; Glucose Random 137 mg/dL (60-115); Potassium 3.7 mmol/L (3.3-5.1); Sodium 158 mmol/L (135-145)
[2020-06-17] VITALS (8 sets, daily range): BP systolic 110–121; BP diastolic 58–66; PULSE 86–95; RESP 13–28; TEMP 36.1–37.1; O2SAT 96–98
[2020-06-17 06:04] LABS: Hematocrit 23.5 % (42-52); Hemoglobin 7.5 g/dl (14.0-18.0); Mean Corpuscular HGB Conc 31.9 g/dl (31.0-36.0); Mean Corpuscular Hemoglobin 29.2 pg (27.0-33.0); Mean Corpuscular Volume 91.4 fL (80-98); NRBC Pct Auto 0.4 /100WBC (0.0-0.2); Platelet Count 175 X10*3/uL (160-400); Red Blood Count 2.57 X10*6/uL (4.60-5.80); Red Cell Distribution Width 17.2 % (11.0-16.0); White Blood Count 9.6 X10*3/uL (4.8-10.8)
[2020-06-17 06:38] LABS: Anion Gap 13 (12-20); Blood Urea Nitrogen 36 mg/dL (9-16); Calcium 7.6 mg/dL (8.4-10.2); Carbon Dioxide 21 mmol/L (22-29); Chloride 124 mmol/L (96-108); Creatinine Clr Calc Pharmacy 66.1; Estimated Glomerular Filt Rate > 60; Glucose Random 176 mg/dL (60-115); Potassium 3.4 mmol/L (3.3-5.1); Sodium 155 mmol/L (135-145)
[2020-06-17 07:14] LABS: Glucose, Whole Blood 173 mg/dL (60-115)
[2020-06-17] MEDS: Dextrose 5 % 1,000 ML 75 ML IVCONT (08:11)
[2020-06-17] MEDS: cefTRIAXone sodium 1 GM in 0.9 % Sodium Chloride 50 ML IV (08:11)
[2020-06-17] MEDS: Insulin Glargine,Hum.rec.anlog 100 UNIT/ML 10 ML VIAL 10 UNIT SUBCUT (08:11)
[2020-06-17] MEDS: Insulin Lispro 100 UNIT/ML 3 ML VIAL SUBCUT (08:12)
[2020-06-17 11:39] LABS: Glucose, Whole Blood 160 mg/dL (60-115)
--- NOTE | 2020-06-17 12:33 | MHC.CM.PN ---
Pt continues to receive care in [facility] unit on the [facility]: Labs are abnormal and are being corrected with medication and IVF changes: Renal following. D/C notes state pt will return to home with [facility] - his brother Rasta will provide transportation.
--- NOTE | 2020-06-17 12:57 | HO.PM.IMPN ---
Subjective Subjective Date of Service: 06/17/20 Interval History: the patient was seen and evaluated this morning Laying in bed, more alert and interactive today Abdomen distended, stable H&H No reported fever, chills or shortness of breath No reported other overnight events. Systemic review: No fever, chills but have general weakness No chest pain, palpitation No shortness of breath or coughing No abdominal pain, abdominal distention No urinary symptoms No any rash or wounds Physical Exam Vital Signs: Vital Signs: Last Vital Signs Temp 96.9 F 06/17/20 12:02 Pulse 86 06/17/20 12:02 Resp 13 06/17/20 12:02 BP 110/58 L 06/17/20 12:02 Pulse Ox 96 06/17/20 12:02 Body Mass Index 25.8 Const: Other: Constitutional : Altered, not oriented, not in distress Neck : Normal inspection, Supple Cardiovascular : RRR, S1 S2, trace lower extremity edema Respiratory : Fair bilateral air entry, no crackles, wheezes or rhonchi Gastrointestinal: Abdomen is distended, soft, lax, Normal bowel sounds, no tenderness , filled with ascites Skin : Warm/Dry, No rash Neurological : Altered, not oriented, No focal deficit Objective Data Current Medications Generic Name Dose Route Start Last Admin Trade Name Freq PRN Reason Stop Dose Admin Ceftriaxone Sodium 1 gm/ 50 mls @ 100 mls/hr 06/15/20 09:30 06/17/20 08:52 Sodium Chloride IV Infused Q24H ROJAS Infusion Dextrose 1,000 mls @ 150 mls/hr 06/16/20 08:30 06/17/20 08:11 D5w IVCONT 75 mls/hr .Q6H40M ROJAS Administration Insulin Glargine 10 unit 06/14/20 14:35 06/17/20 08:11 Insulin Glargine,Hum.Rec.Anlog 100 Unit/Ml 10 Ml Vial SUBCUT 10 unit DAILY ROJAS Administration Insulin Human Lispro 0 unit 06/15/20 16:30 06/17/20 08:12 Insulin Lispro 100 Unit/Ml 3 Ml Vial SUBCUT 2 unit QIDACHS ROJAS Administration Protocol Labs CBC & Chem 7: 06/17/20 05:17 06/17/20 05:17 Assessment and Plan (1) Anemia: Status: Acute (2) Hypernatremia: Status: Acute (3) Acute kidney injury: Status: Acute (4) Acute hyperkalemia: Status: Acute (5) Acute hyperglycemia: Status: Acute (6) Acute upper GI bleed: Problem details: Octeotride ongoing Status: Acute (7) Cirrhosis: Problem details: appreciate GI recs Status: Acute (8) Blood loss anemia: Status: Acute (9) Type 2 diabetes mellitus with hyperglycemia: Status: Acute Assessment and Plan: A 70-year-old male with a past medical history of hypertension, hyperlipidemia, diabetes, liver cirrhosis, history portal vein thrombosis-not on anticoagulation, history of gallstones presented admitted d/t massive rectal bleeding with acute blood loss anemia that required multiple blood transfusion, electrolytes abnormalities, and renal failure. Underwent emergent EGD and found to have visible bleeding vessel (Dieulafoy lesion) in the stomach that was amenable to hemostasis, very high to morbidity and mortality. Metabolic encephalopathy likely 2/2 HyperNa, hospital stay improving treat underlying causes Hypernatremia Na 155 today 2/2 AMS and decrease PO intake increase D5 to 150 follow BMP Acute upper GI Bleeding d/t bleeding vessel seen on EGD 06/[address] Brody with successful hemostasis achieved by clipping. Still passing dark stools, no blood noticed Continue to monitor for rebleed Stop Octreotide, noted to have varices but no bleeding GI following. liquid diet today PO PPI Acute Blood loss anemia s/p 5 units of RBC on 06/14, 1 unit of Plasma Hb stable 7.5 To repeat given continue to have melena might need another transfusion Abdominal pain: h/o gallstones but no gallstone, some tenderness over the liver area. Seen by Surgery (Rhett), no further w/u Continue ceftriaxone TREMAYNE Likely pre-renal Cr return to normal. Nephrology following Hyperkalemia Resolved Metabolic acidosis: Bicarb improved to 20 post bicab drip Diabetes clears 10 units Lantus SSI Transaminitis Portal V thrombosis, avoid blood thinners with bleed The patient has known liver cirrhosis. Hold home statin. Monitor levels. Moderate protein malnutrition to add Ensure DVT prophylaxis: SCD boots Code status: Full code
[2020-06-17] MEDS: Omeprazole 40 MG CAPSULE.DR PO (14:57)
[2020-06-17 15:29] LABS: Anion Gap 12 (12-20); Blood Urea Nitrogen 33 mg/dL (9-16); Calcium 7.5 mg/dL (8.4-10.2); Carbon Dioxide 23 mmol/L (22-29); Creatinine Clr Calc Pharmacy 69.3; Estimated Glomerular Filt Rate > 60; Glucose Random 164 mg/dL (60-115); Potassium 3.7 mmol/L (3.3-5.1)
[2020-06-17 15:38] LABS: Chloride 122 mmol/L (96-108); Sodium 153 mmol/L (135-145)
[2020-06-17 16:40] LABS: Glucose, Whole Blood 193 mg/dL (60-115)
[2020-06-17 21:39] LABS: Glucose, Whole Blood 154 mg/dL (60-115)
[2020-06-17] MEDS: Dextrose 5 % 1,000 ML 150 ML IVCONT ×2 (21:43→23:54)
--- NOTE | 2020-06-17 22:19 | PM.PNNEP ---
Subjective Subjective Date of Service: 06/17/20 Interval history: the patient was seen and evaluated this morning Laying in bed, more alert and interactive today Abdomen distended, No reported fever, chills or shortness of breath No reported other overnight events. Systemic review: No fever, chills but have general weakness No chest pain, palpitation No shortness of breath or coughing No abdominal pain, abdominal distention No urinary symptoms No any rash or wounds Physical Exam Vital Signs: Vital Signs: Last Vital Signs Temp 98.8 F 06/17/20 19:02 Pulse 94 06/17/20 19:02 Resp 16 06/17/20 19:02 BP 121/63 06/17/20 19:02 Pulse Ox 98 06/17/20 19:02 Body Mass Index 25.8 Const: General: comfortable, no acute distress and confusion Nutritional Appearance: thin Orientation/consciousness: confusion HENMT: Head: Yes normocephalic and Yes atraumatic Eyes: Other: subconjunctival pallor General: appearance normal, both eyes and all related structures Pupils: Equal, round and reactive pupils present EOM: EOMs intact bilaterally Neck: Neck: Yes normal visual inspection and Yes supple Chest: Chest palpation & inspection: normal inspection of the chest Resp: Effort & Inspection: normal respiratory effort Cardio: Jugular venous distension: no JVD Rate: regular rate Rhythm: regular rhythm Heart sounds: S1 normal heart sound present and S2 normal heart sound present GI: Inspection: Yes normal to inspection and Yes distended Palpation (GI): Soft to palpation, Tenderness to palpation present (GI) in the RUQ; with no rebound tenderness and Hepatomegaly present Auscultation: normal bowel sounds and Hyperactive bowel sounds present Rectal Exam - Male: Yes deferred Skin: General skin exam: no rashes or lesions noted and dry skin Neuro: General: confusion Cranial nerves: Yes Equal, round and reactive pupils present Psych: Appearance: disheveled Objective Data Labs CBC & Chem 7: 06/17/20 05:17 06/17/20 14:46 Labs: Laboratory Results - last 24 hr 06/16/20 06/17/20 06/17/20 22:12 05:17 05:17 WBC 9.6 RBC 2.57 L Hgb 7.5 L Hct 23.5 L MCV 91.4 MCH 29.2 MCHC 31.9 RDW 17.2 H Plt Count 175 MPV 11.0 Absolute Nucleated RBC 0.040 H Nucleated RBC % (auto) 0.4 H Sodium 158 H 155 H Potassium 3.7 3.4 Chloride 126 H 124 H Carbon Dioxide 21 L 21 L Anion Gap 15 13 BUN 39 H 36 H Creatinine 0.87 0.86 Estim Creat Clear Calc 65.4 66.1 Estimated GFR > 60 > 60 POC Glucose Random Glucose 137 H 176 H Calcium 7.7 L 7.6 L 06/17/20 06/17/20 06/17/20 07:08 11:35 14:46 WBC RBC Hgb Hct MCV MCH MCHC RDW Plt Count MPV Absolute Nucleated RBC Nucleated RBC % (auto) Sodium 153 H Potassium 3.7 Chloride 122 H Carbon Dioxide 23 Anion Gap 12 BUN 33 H Creatinine 0.82 Estim Creat Clear Calc 69.3 Estimated GFR > 60 POC Glucose 173 H 160 H Random Glucose 164 H Calcium 7.5 L 06/17/20 06/17/20 16:36 21:36 WBC RBC Hgb Hct MCV MCH MCHC RDW Plt Count MPV Absolute Nucleated RBC Nucleated RBC % (auto) Sodium Potassium Chloride Carbon Dioxide Anion Gap BUN Creatinine Estim Creat Clear Calc Estimated GFR POC Glucose 193 H 154 H Random Glucose Calcium Assessment & Plan Assessment and plan (1) Acute kidney injury: Status: Acute (2) Hypernatremia: Status: Acute (3) Anemia: Status: Acute (4) Acute hyperkalemia: Status: Acute (5) Acute hyperglycemia: Status: Acute (6) Acute upper GI bleed: Problem details: Octeotride ongoing Status: Acute (7) Cirrhosis: Problem details: appreciate GI recs Status: Acute (8) Blood loss anemia: Status: Acute (9) Type 2 diabetes mellitus with hyperglycemia: Status: Acute Assessment and Plan: (1) Hypernatremia - DXue to free water deficit - No Polyuria - Doubt DI (2 ) Acute kidney injury 3. ESLD 4. Anemia - GI bleed Plan: - Hemodynamically stable, nPRBC PRN - euvolemic no need for diuretics - focus on Hypernatremia for now-agree with increasing D5W at 150 ml / hr - Avoid nephrotoxins f/u Na Thx Dr. Goodwin Time Spent With Patient Time: Total time spent is greater than 50% in coordination of care (as documented) at patient's floor/unit and/or counseling patient: Procedures Date of Service Date of Service: 06/17/20
[2020-06-18] VITALS (10 sets, daily range): BP systolic 101–136; BP diastolic 57–74; PULSE 70–89; RESP 14–26; TEMP 36.7–37.3; O2SAT 93–99
[2020-06-18 05:46] LABS: Mean Corpuscular HGB Conc 31.1 g/dl (31.0-36.0); Mean Corpuscular Hemoglobin 28.5 pg (27.0-33.0); Mean Corpuscular Volume 91.7 fL (80-98); NRBC Pct Auto 0.4 /100WBC (0.0-0.2); Platelet Count 169 X10*3/uL (160-400); Red Blood Count 2.28 X10*6/uL (4.60-5.80); Red Cell Distribution Width 17.3 % (11.0-16.0); White Blood Count 7.9 X10*3/uL (4.8-10.8)
[2020-06-18 05:51] LABS: INTERNATIONAL NORM RATIO 1.3 (0.9-1.1); Prothrombin Time 15.5 SEC (10.8-13.0)
[2020-06-18 06:02] LABS: Hemoglobin 6.5 g/dl (14.0-18.0)
[2020-06-18 06:03] LABS: Hematocrit 20.9 % (42-52)
[2020-06-18] MEDS: Omeprazole 40 MG CAPSULE.DR PO ×2 (06:04→17:31)
[2020-06-18] MEDS: Dextrose 5 % 1,000 ML 150 ML IVCONT ×2 (06:04→17:31)
--- NOTE | 2020-06-18 06:22 | P.EN_ITS ---
Event Note Date of Service: 06/18/20 Event Note: pt hgb <7 this AM, no evidence of acute bleed at this time, most l ikely dilutional. HDS. will do type and screen and transfuse 1 unit of prbc
[2020-06-18 06:39] LABS: Alanine Aminotransferase 40 U/L (0-40); Albumin Level 2.6 g/dL (3.5-5.0); Alkaline Phosphatase 257 U/L (39-117); Anion Gap 11 (12-20); Aspartate Amino Transferase 72 U/L (5-37); Bilirubin Direct 1.1 mg/dL (0.0-0.5); Bilirubin Total 1.4 mg/dL (0.0-1.0); Blood Urea Nitrogen 30 mg/dL (9-16); Calcium 7.3 mg/dL (8.4-10.2); Carbon Dioxide 23 mmol/L (22-29); Chloride 116 mmol/L (96-108); Creatinine Clr Calc Pharmacy 70.2; Estimated Glomerular Filt Rate > 60; Glucose Random 189 mg/dL (60-115); Potassium 3.4 mmol/L (3.3-5.1); Sodium 147 mmol/L (135-145)
[2020-06-18 07:25] LABS: Glucose, Whole Blood 168 mg/dL (60-115)
[2020-06-18] MEDS: cefTRIAXone sodium 1 GM in 0.9 % Sodium Chloride 50 ML IV (09:01)
--- NOTE | 2020-06-18 10:04 | P.PNIM_ITS ---
Subjective Subjective Date of Service: 06/18/20 Interval History: the patient was seen and evaluated this morning Laying in bed, feels comfortable overall, more alert and interactive today Abdomen more distended Hemoglobin dropped to 6.5 on a transfusion planned, no reported bloody bowel motions overnight No reported fever, chills or shortness of breath No reported other overnight events. Systemic review: No fever, chills but have general weakness No chest pain, palpitation No shortness of breath or coughing No abdominal pain, has significant abdominal distention No urinary symptoms No any rash or wounds Physical Exam Vital Signs: Vital Signs: Last Vital Signs Temp 98.1 F 06/18/20 08:00 Pulse 82 06/18/20 08:00 Resp 17 06/18/20 08:00 BP 117/61 06/18/20 08:00 Pulse Ox 96 06/18/20 08:00 Body Mass Index 25.8 Const: Other: Constitutional : Altered, not oriented, not in distress Neck : Normal inspection, Supple Cardiovascular : RRR, S1 S2, trace lower extremity edema Respiratory : Fair bilateral air entry, no crackles, wheezes or rhonchi Gastrointestinal: Abdomen is distended, soft, lax, Normal bowel sounds, no tenderness , filled with ascites Skin : Warm/Dry, No rash Neurological : Altered, not oriented, No focal deficit Objective Data Current Medications Generic Name Dose Route Start Last Admin Trade Name Freq PRN Reason Stop Dose Admin Ceftriaxone Sodium 1 gm/ 50 mls @ 100 mls/hr 06/15/20 09:30 06/18/20 09:42 Sodium Chloride IV Infused Q24H ROJAS Infusion Dextrose 1,000 mls @ 150 mls/hr 06/16/20 08:30 06/18/20 06:04 D5w IVCONT 150 mls/hr .Q6H40M ROJAS Administration Insulin Glargine 10 unit 06/14/20 14:35 06/18/20 08:52 Insulin Glargine,Hum.Rec.Anlog 100 Unit/Ml 10 Ml Vial SUBCUT Not Given DAILY [facility] Insulin Human Lispro 0 unit 06/15/20 16:30 06/18/20 08:52 Insulin Lispro 100 Unit/Ml 3 Ml Vial SUBCUT Not Given QIDACHS [facility] Protocol Omeprazole 40 mg 06/17/20 13:10 06/18/20 06:04 Omeprazole 40 Mg Capsule.Dr PO 40 mg BID@6813,0045 ROJAS Administration Labs CBC & Chem 7: 06/18/20 05:17 06/18/20 05:17 Assessment and Plan (1) Anemia: Status: Acute (2) Hypernatremia: Status: Acute (3) Acute kidney injury: Status: Acute (4) Acute hyperkalemia: Status: Acute (5) Acute hyperglycemia: Status: Acute (6) Acute upper GI bleed: Problem details: Octeotride ongoing Status: Acute (7) Cirrhosis: Problem details: appreciate GI recs Status: Acute (8) Blood loss anemia: Status: Acute (9) Type 2 diabetes mellitus with hyperglycemia: Status: Acute Assessment and Plan: A 70-year-old male with a past medical history of hypertension, hyperlipidemia, diabetes, liver cirrhosis, history portal vein thrombosis-not on anticoagulation, history of gallstones presented admitted d/t massive rectal ble eding with acute blood loss anemia that required multiple blood transfusion, electrolytes abnormalities, and renal failure. Underwent emergent EGD and found to have visible bleeding vessel (Dieulafoy lesion) in the stomach that was amenable to hemostasis. Metabolic encephalopathy likely 2/2 HyperNa, hospital stay improving treat underlying causes Hypernatremia Na 147 today 2/2 AMS and decrease PO intake Continue D5W follow BMP Acute upper GI Bleeding d/t bleeding vessel seen on EGD 06/[address] Brody with successful hemostasis achieved by clipping. Stop Octreotide, noted to have varices but no bleeding Continue to monitor for rebleed GI following. To repeat EGD today liquid diet today PO PPI Acute Blood loss anemia s/p 5 units of RBC on 06/14, 1 unit of Plasma Hb dropped to 6.5, likely delusional No reported overnight melena To give another transfusion Ascites Increasing in amount with IV fluids Plan to do paracentesis today for therapeutic reason To give albumin afterward TREMAYNE Likely pre-renal Cr return to normal. Nephrology following Hyperkalemia Resolved Metabolic acidosis: Bicarb improved to 20 post bicab drip Diabetes clears 10 units Lantus SSI Abdominal pain Transaminitis Portal V thrombosis, avoid blood thinners with bleed The patient has known liver cirrhosis. Hold home statin. Monitor levels. Moderate protein malnutrition to add Ensure DVT prophylaxis: SCD boots Code status: Full code
[2020-06-18 11:20] LABS: Glucose, Whole Blood 141 mg/dL (60-115)
--- NOTE | 2020-06-18 15:02 | HO.ANESPROP2 ---
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 (Acute) Hyperlipidemia LDL goal <100 (Acute) Essential hypertension (Acute) Diarrhea (Acute) Past Medical History Medical History Essential hypertension GERD (gastroesophageal reflux disease) Hyperlipidemia LDL goal <100 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 Type 2 diabetes mellitus with hyperglycemia Family History Family History Father Diabetes Mother Breast cancer Diabetes Cardiovascular disease Brother Diabetes Sister Diabetes Family history of problems with anesthesia: No Surgical History Surgical History History of liver biopsy History of Problems with Anesthesia: No Social History Social History (Updated 06/18/20 @ 15:47 by Leda Van) Household Members: Family Housing: Unknown / Unable to assess Alcohol intake: former Smoking Status: Unknown if ever smoked Smoking Quit Date: 2014 Second Hand Smoke Exposure: No service: No Current occupational status: retired Meds Allergies Allergy/AdvReac Type Severity Reaction Status Date / Time No Known Allergies Allergy Verified 05/26/20 10:49 Active Medications: Current Medications Generic Name Dose Route Start Last Admin Trade Name Freq PRN Reason Stop Dose Admin Ceftriaxone Sodium 1 gm/ 50 mls @ 100 mls/hr 06/15/20 09:30 06/18/20 09:42 Sodium Chloride IV Infused Q24H ROJAS Infusion Dextrose 1,000 mls @ 150 mls/hr 06/16/20 08:30 06/18/20 12:52 D5w IVCONT Infused .[id number] ROJAS Infusion Insulin Glargine 10 unit 06/14/20 14:35 06/18/20 08:52 Insulin Glargine,Hum.Rec.Anlog 100 Unit/Ml 10 Ml Vial SUBCUT Not Given DAILY [facility] Insulin Human Lispro 0 unit 06/15/20 16:30 06/18/20 12:16 Insulin Lispro 100 Unit/Ml 3 Ml Vial SUBCUT Not Given QIDACHS [facility] Protocol Omeprazole 40 mg 06/17/20 13:10 06/18/20 06:04 Omeprazole 40 Mg Capsule. PO 40 mg BID@0630,6660 [facility] Administration Home Medications Medication Instructions Recorded Confirmed Last Taken Type ascorbic acid (vitamin C) 500 mg 500 mg PO DAILY 02/19/20 06/18/20 Unknown History tablet aspirin 81 mg tablet,delayed 81 mg PO BEDTIME 02/19/20 06/18/20 Unknown History release blood sugar diagnostic #10 ea 02/19/20 05/26/20 Unknown History cholecalciferol (vitamin D3) 50 50 mcg PO QAM 02/19/20 06/18/20 Unknown History mcg (2,000 unit) tablet ferrous sulfate 325 mg (65 mg 325 mg PO QAM 02/19/20 06/18/20 Unknown History iron) tablet hydrocodone 5 mg-acetaminophen 325 1 tab PO Q8H PRN 02/19/20 06/18/20 Unknown History mg tablet lancets 33 gauge #100 ea 02/19/20 05/26/20 Unknown History lisinopril 20 1 tab PO DAILY 02/19/20 06/18/20 Unknown History mg-hydrochlorothiazide 25 mg tablet omeprazole 20 mg capsule,delayed 20 mg PO DAILY 02/19/20 06/18/20 Unknown History release pen needle, diabetic 32 gauge x #50 ea 02/19/20 05/26/20 Unknown History tamsulosin 0.4 mg capsule 0.4 mg PO DAILY 02/19/20 06/18/20 Unknown History atorvastatin 40 mg tablet 40 mg PO BEDTIME tab 03/25/20 06/18/20 Unknown History gabapentin 300 mg capsule 300 mg PO BID cap 04/28/20 06/18/20 Unknown History pen needle, diabetic 31 gauge x #1200 ea 04/28/20 05/26/20 Unknown History 09/07 Exam Exam Date and Time: June 18, 2020 1502 Height,Weight and Vital Signs: Height 5 ft 3 in Weight 66.1 kg Last Vital Signs Temp 98.8 F 06/18/20 14:55 Pulse 82 06/18/20 14:55 Resp 18 06/18/20 14:55 BP 123/64 06/18/20 14:55 Pulse Ox 97 06/18/20 12:00 Pertinent Lab Results Pertinent Lab Results: Laboratory Tests 06/13/20 06/14/20 06/14/20 22:54 00:10 00:10 WBC RBC Hgb Hct MCV MCH MCHC RDW Plt Count MPV Immature Gran % (Auto) Neut % (Auto) Lymph % (Auto) [place] % (Auto) Eos % (Auto) Baso % (Auto) Lymph # (Auto) [place] # (Auto) Eos # (Auto) Baso # (Auto) Abs Immat Gran (auto) Absolute Neuts (auto) Absolute Nucleated RBC Nucleated RBC % (auto) Smear Path Review PT INR VBG pH VBG pCO2 VBG pO2 VBG HCO3 VBG O2 Saturation VBG Base Excess Sodium Potassium Chloride Carbon Dioxide Anion Gap BUN Creatinine Estim Creat Clear Calc Estimated GFR POC Glucose 330 H Random Glucose Estimat Average Glucose Hemoglobin A1c % Calcium Total Bilirubin Direct Bilirubin AST ALT Alkaline Phosphatase Total Protein Albumin Alpha Fetoprotein Urine Color Urine Appearance Urine pH Ur Specific [place] Urine Protein Urine Glucose (UA) Urine Ketones Urine Blood Urine Nitrite Ur Leukocyte Esterase Urine RBC Urine WBC Ur Squamous Epith Cells Amorphous Sediment Urine Bacteria Granular Casts Urine Mucus Stool Occult Blood POS Urine Opiates Screen Ur Barbiturates Screen Ur Phencyclidine Scrn Ur Amphetamines Screen U Benzodiazepines Scrn Urine Cocaine Screen U Marijuana (THC) Screen Ethyl Alcohol COVID-19 ([facility]) Negative COVID-19 Clin Com See Note Blood Type Antibody Screen Crossmatch 06/14/20 06/14/20 06/14/20 00:17 00:17 00:17 WBC 8.6 RBC 1.87 L D Hgb 5.3 L* D Hct 17.4 L* D MCV 93.0 MCH 28.3 MCHC 30.5 L RDW 19.3 H Plt Count 285 D MPV 10.8 Immature Gran % (Auto) 0.5 H Neut % (Auto) 84.0 H Lymph % (Auto) 12.0 L [place] % (Auto) 3.4 Eos % (Auto) 0.0 Baso % (Auto) 0.1 Lymph # (Auto) 1.0 L [place] # (Auto) 0.3 Eos # (Auto) 0.0 Baso # (Auto) 0.0 Abs Immat Gran (auto) 0.04 H Absolute Neuts (auto) 7.2 Absolute Nucleated RBC 0.000 Nucleated RBC % (auto) 0.0 Smear Path Review SEE NOTE PT 16.1 H D INR 1.4 H VBG pH VBG pCO2 VBG pO2 VBG HCO3 VBG O2 Saturation VBG Base Excess Sodium 143 Potassium 6.8 H* D Chloride 117 H Carbon Dioxide 10 L* D Anion Gap 23 H BUN 115 H* D Creatinine 1.82 H Estim Creat Clear Calc 31.2 Estimated GFR 37 POC Glucose Random Glucose 446 H* Estimat Average Glucose Hemoglobin A1c % Calcium 8.6 D Total Bilirubin 0.6 Direct Bilirubin 0.4 AST 67 H ALT 44 H Alkaline Phosphatase 486 H D Total Protein 5.9 L D Albumin 2.8 L D Alpha Fetoprotein Urine Color Urine Appearance Urine pH Ur Specific [place] Urine Protein Urine Glucose (UA) Urine Ketones Urine Blood Urine Nitrite Ur Leukocyte Esterase Urine RBC Urine WBC Ur Squamous Epith Cells Amorphous Sediment Urine Bacteria Granular Casts Urine Mucus Stool Occult Blood Urine Opiates Screen Ur Barbiturates Screen Ur Phencyclidine Scrn Ur Amphetamines Screen U Benzodiazepines Scrn Urine Cocaine Screen U Marijuana (THC) Screen Ethyl Alcohol COVID-19 ([facility]) COVID-19 Clin Com Blood Type Antibody Screen Crossmatch 06/14/20 06/14/20 06/14/20 00:17 01:43 01:43 WBC 8.0 RBC 1.78 L Hgb 5.0 L* Hct 16.7 L* MCV 93.8 MCH 28.1 MCHC 29.9 L RDW 19.5 H Plt Count 265 MPV 11.0 Immature Gran % (Auto) 0.4 Neut % (Auto) 84.4 H Lymph % (Auto) 13.0 L [place] % (Auto) 2.1 Eos % (Auto) 0.0 Baso % (Auto) 0.1 Lymph # (Auto) 1.0 L [place] # (Auto) 0.2 Eos # (Auto) 0.0 Baso # (Auto) 0.0 Abs Immat Gran (auto) 0.03 Absolute Neuts (auto) 6.8 Absolute Nucleated RBC 0.000 Nucleated RBC % (auto) 0.0 Smear Path Review PT INR VBG pH VBG pCO2 VBG pO2 VBG HCO3 VBG O2 Saturation VBG Base Excess Sodium Potassium Chloride Carbon Dioxide Anion Gap BUN Creatinine Estim Creat Clear Calc Estimated GFR POC Glucose Random Glucose Estimat Average Glucose Hemoglobin A1c % Calcium Total Bilirubin Direct Bilirubin AST ALT Alkaline Phosphatase Total Protein Albumin Alpha Fetoprotein Urine Color Urine Appearance Urine pH Ur Specific [place] Urine Protein Urine Glucose (UA) Urine Ketones Urine Blood Urine Nitrite Ur Leukocyte Esterase Urine RBC Urine WBC Ur Squamous Epith Cells Amorphous Sediment Urine Bacteria Granular Casts Urine Mucus Stool Occult Blood Urine Opiates Screen Ur Barbiturates Screen Ur Phencyclidine Scrn Ur Amphetamines Screen U Benzodiazepines Scrn Urine Cocaine Screen U Marijuana (THC) Screen Ethyl Alcohol < 10 COVID-19 ([facility]) COVID-19 Clin Com Blood Type O Positive Antibody Screen NEGATIVE Crossmatch See Detail 06/14/20 06/14/20 06/14/20 01:43 02:51 03:23 WBC RBC Hgb Hct MCV MCH MCHC RDW Plt Count MPV Immature Gran % (Auto) Neut % (Auto) Lymph % (Auto) [place] % (Auto) Eos % (Auto) Baso % (Auto) Lymph # (Auto) [place] # (Auto) Eos # (Auto) Baso # (Auto) Abs Immat Gran (auto) Absolute Neuts (auto) Absolute Nucleated RBC Nucleated RBC % (auto) Smear Path Review PT INR VBG pH 7.49 H VBG pCO2 12 VBG pO2 230 VBG HCO3 9 VBG O2 Saturation 99.0 VBG Base Excess -12.6 Sodium 143 Potassium 6.3 H* Chloride 120 H Carbon Dioxide 11 L Anion Gap 18 BUN 112 H* Creatinine 1.67 H Estim Creat Clear Calc 34.0 Estimated GFR 41 POC Glucose Random Glucose 410 H* Estimat Average Glucose Hemoglobin A1c % Calcium 8.3 L Total Bilirubin Direct Bilirubin AST ALT Alkaline Phosphatase Total Protein Albumin Alpha Fetoprotein Urine Color Urine Appearance Urine pH Ur Specific [place] Urine Protein Urine Glucose (UA) Urine Ketones Urine Blood Urine Nitrite Ur Leukocyte Esterase Urine RBC Urine WBC Ur Squamous Epith Cells Amorphous Sediment Urine Bacteria Granular Casts Urine Mucus Stool Occult Blood Urine Opiates Screen Not Detected Ur Barbiturates Screen Not Detected Ur Phencyclidine Scrn Not Detected Ur Amphetamines Screen Not Detected U Benzodiazepines Scrn Not Detected Urine Cocaine Screen Not Detected U Marijuana (THC) Screen Not Detected Ethyl Alcohol COVID-19 ([facility]) COVID-19 Clin Com Blood Type Antibody Screen Crossmatch 06/14/20 06/14/20 06/14/20 03:23 04:15 08:27 WBC RBC Hgb Hct MCV MCH MCHC RDW Plt Count MPV Immature Gran % (Auto) Neut % (Auto) Lymph % (Auto) [place] % (Auto) Eos % (Auto) Baso % (Auto) Lymph # (Auto) [place] # (Auto) Eos # (Auto) Baso # (Auto) Abs Immat Gran (auto) Absolute Neuts (auto) Absolute Nucleated RBC Nucleated RBC % (auto) Smear Path Review PT INR VBG pH VBG pCO2 VBG pO2 VBG HCO3 VBG O2 Saturation VBG Base Excess Sodium Potassium Chloride Carbon Dioxide Anion Gap BUN Creatinine Estim Creat Clear Calc Estimated GFR POC Glucose 366 H* 433 H* Random Glucose Estimat Average Glucose Hemoglobin A1c % Calcium Total Bilirubin Direct Bilirubin AST ALT Alkaline Phosphatase Total Protein Albumin Alpha Fetoprotein Urine Color YELLOW Urine Appearance HAZY Urine pH 5.0 Ur Specific [place] 1.025 Urine Protein NEG Urine Glucose (UA) 250 H Urine Ketones NEG Urine Blood TRACE Urine Nitrite NEG Ur Leukocyte Esterase NEG Urine RBC 0 Urine WBC 0-2 Ur Squamous Epith Cells 1+ Amorphous Sediment 1+ Urine Bacteria NONE Granular Casts 1-4 Urine Mucus 1+ Stool Occult Blood Urine Opiates Screen Ur Barbiturates Screen Ur Phencyclidine Scrn Ur Amphetamines Screen U Benzodiazepines Scrn Urine Cocaine Screen U Marijuana (THC) Screen Ethyl Alcohol COVID-19 ([facility]) COVID-19 Clin Com Blood Type Antibody Screen Crossmatch 06/14/20 06/14/20 06/14/20 11:04 11:04 11:04 WBC 9.3 RBC 2.71 L D Hgb 7.9 L D Hct 24.2 L D MCV 89.3 MCH 29.2 MCHC 32.6 RDW 15.2 Plt Count 206 MPV 11.3 Immature Gran % (Auto) 0.4 Neut % (Auto) 81.2 H Lymph % (Auto) 11.4 L [place] % (Auto) 6.7 Eos % (Auto) 0.0 Baso % (Auto) 0.3 Lymph # (Auto) 1.1 L [place] # (Auto) 0.6 Eos # (Auto) 0.0 Baso # (Auto) 0.0 Abs Immat Gran (auto) 0.04 H Absolute Neuts (auto) 7.5 Absolute Nucleated RBC 0.000 Nucleated RBC % (auto) 0.0 Smear Path Review PT INR VBG pH VBG pCO2 VBG pO2 VBG HCO3 VBG O2 Saturation VBG Base Excess Sodium 147 H Potassium 5.1 Chloride 120 H Carbon Dioxide 18 L Anion Gap 14 BUN 108 H* Creatinine 1.41 H Estim Creat Clear Calc 40.3 Estimated GFR 50 POC Glucose Random Glucose 501 H* Estimat Average Glucose Hemoglobin A1c % Calcium 7.8 L D Total Bilirubin Direct Bilirubin AST ALT Alkaline Phosphatase Total Protein Albumin Alpha Fetoprotein 158.4 H Urine Color Urine Appearance Urine pH Ur Specific [place] Urine Protein Urine Glucose (UA) Urine Ketones Urine Blood Urine Nitrite Ur Leukocyte Esterase Urine RBC Urine WBC Ur Squamous Epith Cells Amorphous Sediment Urine Bacteria Granular Casts Urine Mucus Stool Occult Blood Urine Opiates Screen Ur Barbiturates Screen Ur Phencyclidine Scrn Ur Amphetamines Screen U Benzodiazepines Scrn Urine Cocaine Screen U Marijuana (THC) Screen Ethyl Alcohol COVID-19 ([facility]) COVID-19 Lopoly Com Blood Type Antibody Screen Crossmatch 06/14/20 06/14/20 06/14/20 14:00 16:31 17:54 WBC RBC Hgb Hct MCV MCH MCHC RDW Plt Count MPV Immature Gran % (Auto) Neut % (Auto) Lymph % (Auto) [place] % (Auto) Eos % (Auto) Baso % (Auto) Lymph # (Auto) [place] # (Auto) Eos # (Auto) Baso # (Auto) Abs Immat Gran (auto) Absolute Neuts (auto) Absolute Nucleated RBC Nucleated RBC % (auto) Smear Path Review PT INR VBG pH VBG pCO2 VBG pO2 VBG HCO3 VBG O2 Saturation VBG Base Excess Sodium Potassium Chloride Carbon Dioxide Anion Gap BUN Creatinine Estim Creat Clear Calc Estimated GFR POC Glucose 400 H* 286 H 269 H Random Glucose Estimat Average Glucose Hemoglobin A1c % Calcium Total Bilirubin Direct Bilirubin AST ALT Alkaline Phosphatase Total Protein Albumin Alpha Fetoprotein Urine Color Urine Appearance Urine pH Ur Specific [place] Urine Protein Urine Glucose (UA) Urine Ketones Urine Blood Urine Nitrite Ur Leukocyte Esterase Urine RBC Urine WBC Ur Squamous Epith Cells Amorphous Sediment Urine Bacteria Granular Casts Urine Mucus Stool Occult Blood Urine Opiates Screen Ur Barbiturates Screen Ur Phencyclidine Scrn Ur Amphetamines Screen U Benzodiazepines Scrn Urine Cocaine Screen U Marijuana (THC) Screen Ethyl Alcohol COVID-19 ([facility]) COVID-19 Lopoly Com Blood Type Antibody Screen Crossmatch 06/14/20 06/14/2006/14/21 18:10 18:10 20:49 WBC 11.7 H RBC 2.25 L Hgb 6.8 L* Hct 20.6 L* MCV 91.6 MCH 30.2 MCHC 33.0 RDW 15.7 Plt Count 196 MPV 11.5 Immature Gran % (Auto) 0.4 Neut % (Auto) 79.3 H Lymph % (Auto) 13.0 L [place] % (Auto) 7.0 Eos % (Auto) 0.0 Baso % (Auto) 0.3 Lymph # (Auto) 1.5 [place] # (Auto) 0.8 Eos # (Auto) 0.0 Baso # (Auto) 0.0 Abs Immat Gran (auto) 0.05 H Absolute Neuts (auto) 9.3 H Absolute Nucleated RBC 0.020 H Nucleated RBC % (auto) 0.2 Smear Path Review PT INR VBG pH VBG pCO2 VBG pO2 VBG HCO3 VBG O2 Saturation VBG Base Excess Sodium 151 H Potassium 4.5 Chloride 121 H Carbon Dioxide 20 L Anion Gap 15 BUN 102 H* Creatinine 1.36 Estim Creat Clear Calc 41.8 Estimated GFR 52 POC Glucose 226 H Random Glucose 309 H D Estimat Average Glucose Hemoglobin A1c % Calcium 7.6 L Total Bilirubin Direct Bilirubin AST ALT Alkaline Phosphatase Total Protein Albumin Alpha Fetoprotein Urine Color Urine Appearance Urine pH Ur Specific [place] Urine Protein Urine Glucose (UA) Urine Ketones Urine Blood Urine Nitrite Ur Leukocyte Esterase Urine RBC Urine WBC Ur Squamous Epith Cells Amorphous Sediment Urine Bacteria Granular Casts Urine Mucus Stool Occult Blood Urine Opiates Screen Ur Barbiturates Screen Ur Phencyclidine Scrn Ur Amphetamines Screen U Benzodiazepines Scrn Urine Cocaine Screen U Marijuana (THC) Screen Ethyl Alcohol COVID-19 ([facility]) COVID-19 Clin Com Blood Type Antibody Screen Crossmatch 06/15/20 06/15/20 06/15/20 05:17 07:08 11:07 WBC 14.5 H RBC 2.86 L D Hgb 8.5 L D Hct 26.0 L D MCV 90.9 MCH 29.7 MCHC 32.7 RDW 15.9 Plt Count 158 L MPV 11.2 Immature Gran % (Auto) Neut % (Auto) Lymph % (Auto) [place] % (Auto) Eos % (Auto) Baso % (Auto) Lymph # (Auto) [place] # (Auto) Eos # (Auto) Baso # (Auto) Abs Immat Gran (auto) Absolute Neuts (auto) Absolute Nucleated RBC 0.050 H Nucleated RBC % (auto) 0.3 H Smear Path Review PT INR VBG pH VBG pCO2 VBG pO2 VBG HCO3 VBG O2 Saturation VBG Base Excess Sodium Potassium Chloride Carbon Dioxide Anion Gap BUN Creatinine Estim Creat Clear Calc Estimated GFR POC Glucose 218 H 216 H Random Glucose Estimat Average Glucose Hemoglobin A1c % Calcium Total Bilirubin Direct Bilirubin AST ALT Alkaline Phosphatase Total Protein Albumin Alpha Fetoprotein Urine Color Urine Appearance Urine pH Ur Specific [place] Urine Protein Urine Glucose (UA) Urine Ketones Urine Blood Urine Nitrite Ur Leukocyte Esterase Urine RBC Urine WBC Ur Squamous Epith Cells Amorphous Sediment Urine Bacteria Granular Casts Urine Mucus Stool Occult Blood Urine Opiates Screen Ur Barbiturates Screen Ur Phencyclidine Scrn Ur Amphetamines Screen U Benzodiazepines Scrn Urine Cocaine Screen U Marijuana (THC) Screen Ethyl Alcohol COVID-19 ([facility]) COVID-19 Lopoly Com Blood Type Antibody Screen Crossmatch 06/15/20 06/15/20 06/15/20 16:06 21:11 21:55 WBC RBC Hgb Hct MCV MCH MCHC RDW Plt Count MPV Immature Gran % (Auto) Neut % (Auto) Lymph % (Auto) [place] % (Auto) Eos % (Auto) Baso % (Auto) Lymph # (Auto) [place] # (Auto) Eos # (Auto) Baso # (Auto) Abs Immat Gran (auto) Absolute Neuts (auto) Absolute Nucleated RBC Nucleated RBC % (auto) Smear Path Review PT INR VBG pH VBG pCO2 VBG pO2 VBG HCO3 VBG O2 Saturation VBG Base Excess Sodium Potassium Chloride Carbon Dioxide Anion Gap BUN Creatinine Estim Creat Clear Calc Estimated GFR POC Glucose 219 H 204 H Random Glucose Estimat Average Glucose 134 Hemoglobin A1c % 6.3 Calcium Total Bilirubin Direct Bilirubin AST ALT Alkaline Phosphatase Total Protein Albumin Alpha Fetoprotein Urine Color Urine Appearance Urine pH Ur Specific [place] Urine Protein Urine Glucose (UA) Urine Ketones Urine Blood Urine Nitrite Ur Leukocyte Esterase Urine RBC Urine WBC Ur Squamous Epith Cells Amorphous Sediment Urine Bacteria Granular Casts Urine Mucus Stool Occult Blood Urine Opiates Screen Ur Barbiturates Screen Ur Phencyclidine Scrn Ur Amphetamines Screen U Benzodiazepines Scrn Urine Cocaine Screen U Marijuana (THC) Screen Ethyl Alcohol COVID-19 ([facility]) COVID-19 Clin Com Blood Type Antibody Screen Crossmatch 06/16/20 06/16/20 06/16/20 05:15 05:15 08:41 WBC 12.6 H RBC 2.55 L Hgb 7.4 L Hct 23.2 L MCV 91.0 MCH 29.0 MCHC 31.9 RDW 16.6 H Plt Count 167 MPV 11.2 Immature Gran % (Auto) Neut % (Auto) Lymph % (Auto) [place] % (Auto) Eos % (Auto) Baso % (Auto) Lymph # (Auto) [place] # (Auto) Eos # (Auto) Baso # (Auto) Abs Immat Gran (auto) Absolute Neuts (auto) Absolute Nucleated RBC 0.090 H Nucleated RBC % (auto) 0.7 H Smear Path Review PT INR VBG pH VBG pCO2 VBG pO2 VBG HCO3 VBG O2 Saturation VBG Base Excess Sodium 156 H Potassium 3.6 Chloride 126 H Carbon Dioxide 20 L Anion Gap 14 BUN 55 H Creatinine 1.02 Estim Creat Clear Calc 55.7 Estimated GFR > 60 POC Glucose 220 H Random Glucose 217 H Estimat Average Glucose Hemoglobin A1c % Calcium 7.4 L Total Bilirubin Direct Bilirubin AST ALT Alkaline Phosphatase Total Protein Albumin Alpha Fetoprotein Urine Color Urine Appearance Urine pH Ur Specific [place] Urine Protein Urine Glucose (UA) Urine Ketones Urine Blood Urine Nitrite Ur Leukocyte Esterase Urine RBC Urine WBC Ur Squamous Epith Cells Amorphous Sediment Urine Bacteria Granular Casts Urine Mucus Stool Occult Blood Urine Opiates Screen Ur Barbiturates Screen Ur Phencyclidine Scrn Ur Amphetamines Screen U Benzodiazepines Scrn Urine Cocaine Screen U Marijuana (THC) Screen Ethyl Alcohol COVID-19 ([facility]) COVID-19 Clin Com Blood Type Antibody Screen Crossmatch 06/16/20 06/16/20 06/16/20 11:41 14:52 14:52 WBC 11.9 H RBC 2.62 L Hgb 7.6 L Hct 24.0 L MCV 91.6 MCH 29.0 MCHC 31.7 RDW 17.1 H Plt Count 167 MPV 10.9 Immature Gran % (Auto) Neut % (Auto) Lymph % (Auto) [place] % (Auto) Eos % (Auto) Baso % (Auto) Lymph # (Auto) [place] # (Auto) Eos # (Auto) Baso # (Auto) Abs Immat Gran (auto) Absolute Neuts (auto) Absolute Nucleated RBC 0.050 H Nucleated RBC % (auto) 0.4 H Smear Path Review PT INR VBG pH VBG pCO2 VBG pO2 VBG HCO3 VBG O2 Saturation VBG Base Excess Sodium 158 H Potassium 3.6 Chloride 127 H Carbon Dioxide 23 Anion Gap 12 BUN 46 H Creatinine 0.95 Estim Creat Clear Calc 59.8 Estimated GFR > 60 POC Glucose 165 H Random Glucose 128 H D Estimat Average Glucose Hemoglobin A1c % Calcium 7.8 L Total Bilirubin Direct Bilirubin AST ALT Alkaline Phosphatase Total Protein Albumin Alpha Fetoprotein Urine Color Urine Appearance Urine pH Ur Specific [place] Urine Protein Urine Glucose (UA) Urine Ketones Urine Blood Urine Nitrite Ur Leukocyte Esterase Urine RBC Urine WBC Ur Squamous Epith Cells Amorphous Sediment Urine Bacteria Granular Casts Urine Mucus Stool Occult Blood Urine Opiates Screen Ur Barbiturates Screen Ur Phencyclidine Scrn Ur Amphetamines Screen U Benzodiazepines Scrn Urine Cocaine Screen U Marijuana (THC) Screen Ethyl Alcohol COVID-19 ([facility]) COVID-19 Clin Com Blood Type Antibody Screen Crossmatch 06/16/20 06/16/20 06/16/20 16:59 21:19 22:12 WBC RBC Hgb Hct MCV MCH MCHC RDW Plt Count MPV Immature Gran % (Auto) Neut % (Auto) Lymph % (Auto) [place] % (Auto) Eos % (Auto) Baso % (Auto) Lymph # (Auto) [place] # (Auto) Eos # (Auto) Baso # (Auto) Abs Immat Gran (auto) Absolute Neuts (auto) Absolute Nucleated RBC Nucleated RBC % (auto) Smear Path Review PT INR VBG pH VBG pCO2 VBG pO2 VBG HCO3 VBG O2 Saturation VBG Base Excess Sodium 158 H Potassium 3.7 Chloride 126 H Carbon Dioxide 21 L Anion Gap 15 BUN 39 H Creatinine 0.87 Estim Creat Clear Calc 65.4 Estimated GFR > 60 POC Glucose 139 H 125 H Random Glucose 137 H Estimat Average Glucose Hemoglobin A1c % Calcium 7.7 L Total Bilirubin Direct Bilirubin AST ALT Alkaline Phosphatase Total Protein Albumin Alpha Fetoprotein Urine Color Urine Appearance Urine pH Ur Specific [place] Urine Protein Urine Glucose (UA) Urine Ketones Urine Blood Urine Nitrite Ur Leukocyte Esterase Urine RBC Urine WBC Ur Squamous Epith Cells Amorphous Sediment Urine Bacteria Granular Casts Urine Mucus Stool Occult Blood Urine Opiates Screen Ur Barbiturates Screen Ur Phencyclidine Scrn Ur Amphetamines Screen U Benzodiazepines Scrn Urine Cocaine Screen U Marijuana (THC) Screen Ethyl Alcohol COVID-19 ([facility]) COVID-19 Clin Com Blood Type Antibody Screen Crossmatch 06/17/20 06/17/20 06/17/20 05:17 05:17 07:08 WBC 9.6 RBC 2.57 L Hgb 7.5 L Hct 23.5 L MCV 91.4 MCH 29.2 MCHC 31.9 RDW 17.2 H Plt Count 175 MPV 11.0 Immature Gran % (Auto) Neut % (Auto) Lymph % (Auto) [place] % (Auto) Eos % (Auto) Baso % (Auto) Lymph # (Auto) [place] # (Auto) Eos # (Auto) Baso # (Auto) Abs Immat Gran (auto) Absolute Neuts (auto) Absolute Nucleated RBC 0.040 H Nucleated RBC % (auto) 0.4 H Smear Path Review PT INR VBG pH VBG pCO2 VBG pO2 VBG HCO3 VBG O2 Saturation VBG Base Excess Sodium 155 H Potassium 3.4 Chloride 124 H Carbon Dioxide 21 L Anion Gap 13 BUN 36 H Creatinine 0.86 Estim Creat Clear Calc 66.1 Estimated GFR > 60 POC Glucose 173 H Random Glucose 176 H Estimat Average Glucose Hemoglobin A1c % Calcium 7.6 L Total Bilirubin Direct Bilirubin AST ALT Alkaline Phosphatase Total Protein Albumin Alpha Fetoprotein Urine Color Urine Appearance Urine pH Ur Specific [place] Urine Protein Urine Glucose (UA) Urine Ketones Urine Blood Urine Nitrite Ur Leukocyte Esterase Urine RBC Urine WBC Ur Squamous Epith Cells Amorphous Sediment Urine Bacteria Granular Casts Urine Mucus Stool Occult Blood Urine Opiates Screen Ur Barbiturates Screen Ur Phencyclidine Scrn Ur Amphetamines Screen U Benzodiazepines Scrn Urine Cocaine Screen U Marijuana (THC) Screen Ethyl Alcohol COVID-19 ([facility]) COVID-19 Clin Com Blood Type Antibody Screen Crossmatch 06/17/20 06/17/20 06/17/20 11:35 14:46 16:36 WBC RBC Hgb Hct MCV MCH MCHC RDW Plt Count MPV Immature Gran % (Auto) Neut % (Auto) Lymph % (Auto) [place] % (Auto) Eos % (Auto) Baso % (Auto) Lymph # (Auto) [place] # (Auto) Eos # (Auto) Baso # (Auto) Abs Immat Gran (auto) Absolute Neuts (auto) Absolute Nucleated RBC Nucleated RBC % (auto) Smear Path Review PT INR VBG pH VBG pCO2 VBG pO2 VBG HCO3 VBG O2 Saturation VBG Base Excess Sodium 153 H Potassium 3.7 Chloride 122 H Carbon Dioxide 23 Anion Gap 12 BUN 33 H Creatinine 0.82 Estim Creat Clear Calc 69.3 Estimated GFR > 60 POC Glucose 160 H 193 H Random Glucose 164 H Estimat Average Glucose Hemoglobin A1c % Calcium 7.5 L Total Bilirubin Direct Bilirubin AST ALT Alkaline Phosphatase Total Protein Albumin Alpha Fetoprotein Urine Color Urine Appearance Urine pH Ur Specific [place] Urine Protein Urine Glucose (UA) Urine Ketones Urine Blood Urine Nitrite Ur Leukocyte Esterase Urine RBC Urine WBC Ur Squamous Epith Cells Amorphous Sediment Urine Bacteria Granular Casts Urine Mucus Stool Occult Blood Urine Opiates Screen Ur Barbiturates Screen Ur Phencyclidine Scrn Ur Amphetamines Screen U Benzodiazepines Scrn Urine Cocaine Screen U Marijuana (THC) Screen Ethyl Alcohol COVID-19 ([facility]) COVID-19 Clin Com Blood Type Antibody Screen Crossmatch 06/17/20 06/18/20 06/18/20 21:36 05:17 05:17 WBC 7.9 RBC 2.28 L Hgb 6.5 L* Hct 20.9 L* MCV 91.7 MCH 28.5 MCHC 31.1 RDW 17.3 H Plt Count 169 MPV 11.0 Immature Gran % (Auto) Neut % (Auto) Lymph % (Auto) Zavala % (Auto) Eos % (Auto) Baso % (Auto) Lymph # (Auto) Zavala # (Auto) Eos # (Auto) Baso # (Auto) Abs Immat Gran (auto) Absolute Neuts (auto) Absolute Nucleated RBC 0.030 H Nucleated RBC % (auto) 0.4 H Smear Path Review PT 15.5 H INR 1.3 H VBG pH VBG pCO2 VBG pO2 VBG HCO3 VBG O2 Saturation VBG Base Excess Sodium Potassium Chloride Carbon Dioxide Anion Gap BUN Creatinine Estim Creat Clear Calc Estimated GFR POC Glucose 154 H Random Glucose Estimat Average Glucose Hemoglobin A1c % Calcium Total Bilirubin Direct Bilirubin AST ALT Alkaline Phosphatase Total Protein Albumin Alpha Fetoprotein Urine Color Urine Appearance Urine pH Ur Specific [place] Urine Protein Urine Glucose (UA) Urine Ketones Urine Blood Urine Nitrite Ur Leukocyte Esterase Urine RBC Urine WBC Ur Squamous Epith Cells Amorphous Sediment Urine Bacteria Granular Casts Urine Mucus Stool Occult Blood Urine Opiates Screen Ur Barbiturates Screen Ur Phencyclidine Scrn Ur Amphetamines Screen U Benzodiazepines Scrn Urine Cocaine Screen U Marijuana (THC) Screen Ethyl Alcohol COVID-19 ([facility]) COVID-19 Clin Com Blood Type Antibody Screen Crossmatch 06/18/20 06/18/20 06/18/20 05:17 06:39 07:02 WBC RBC Hgb Hct MCV MCH MCHC RDW Plt Count MPV Immature Gran % (Auto) Neut % (Auto) Lymph % (Auto) Zavala % (Auto) Eos % (Auto) Baso % (Auto) Lymph # (Auto) Z[place]ala # (Auto) Eos # (Auto) Baso # (Auto) Abs Immat Gran (auto) Absolute Neuts (auto) Absolute Nucleated RBC Nucleated RBC % (auto) Smear Path Review PT INR VBG pH VBG pCO2 VBG pO2 VBG HCO3 VBG O2 Saturation VBG Base Excess Sodium 147 H Potassium 3.4 Chloride 116 H Carbon Dioxide 23 Anion Gap 11 L BUN 30 H Creatinine 0.81 Estim Creat Clear Calc 70.2 Estimated GFR > 60 POC Glucose 168 H Random Glucose 189 H Estimat Average Glucose Hemoglobin A1c % Calcium 7.3 L Total Bilirubin 1.4 H Direct Bilirubin 1.1 H AST 72 H ALT 40 Alkaline Phosphatase 257 H D Total Protein 5.0 L Albumin 2.6 L Alpha Fetoprotein Urine Color Urine Appearance Urine pH Ur Specific [place] Urine Protein Urine Glucose (UA) Urine Ketones Urine Blood Urine Nitrite Ur Leukocyte Esterase Urine RBC Urine WBC Ur Squamous Epith Cells Amorphous Sediment Urine Bacteria Granular Casts Urine Mucus Stool Occult Blood Urine Opiates Screen Ur Barbiturates Screen Ur Phencyclidine Scrn Ur Amphetamines Screen U Benzodiazepines Scrn Urine Cocaine Screen U Marijuana (THC) Screen Ethyl Alcohol COVID-19 ([facility]) COVID-19 Clin Com Blood Type O Positive Antibody Screen NEGATIVE Crossmatch See Detail 06/18/20 10:58 WBC RBC Hgb Hct MCV MCH MCHC RDW Plt Count MPV Immature Gran % (Auto) Neut % (Auto) Lymph % (Auto) Z[place]ala % (Auto) Eos % (Auto) Baso % (Auto) Lymph # (Auto) [place]ala # (Auto) Eos # (Auto) Baso # (Auto) Abs Immat Gran (auto) Absolute Neuts (auto) Absolute Nucleated RBC Nucleated RBC % (auto) Smear Path Review PT INR VBG pH VBG pCO2 VBG pO2 VBG HCO3 VBG O2 Saturation VBG Base Excess Sodium Potassium Chloride Carbon Dioxide Anion Gap BUN Creatinine Estim Creat Clear Calc Estimated GFR POC Glucose 141 H Random Glucose Estimat Average Glucose Hemoglobin A1c % Calcium Total Bilirubin Direct Bilirubin AST ALT Alkaline Phosphatase Total Protein Albumin Alpha Fetoprotein Urine Color Urine Appearance Urine pH Ur Specific [place] Urine Protein Urine Glucose (UA) Urine Ketones Urine Blood Urine Nitrite Ur Leukocyte Esterase Urine RBC Urine WBC Ur Squamous Epith Cells Amorphous Sediment Urine Bacteria Granular Casts Urine Mucus Stool Occult Blood Urine Opiates Screen Ur Barbiturates Screen Ur Phencyclidine Scrn Ur Amphetamines Screen U Benzodiazepines Scrn Urine Cocaine Screen U Marijuana (THC) Screen Ethyl Alcohol COVID-19 ([facility]) COVID-19 Clin Com Blood Type Antibody Screen Crossmatch Airway Mallampati Class: II TM Dist: >3cm Neck ROM: Full Loose/Missing/Broken Teeth: Yes (Many missing, top left loose) Heart: RRR Lungs: CTAB Assessment and Plan Assessment Anesthesia Assessment: Anesthesia Plan Discussed and Chart Reviewed Final Anesthetic Review NPO: Yes ASA Class: IV and Emergency Final Preanesthetic Review: No Changes in Pt Med Stat, Meds/Allgs Chart Reviewed, Consent Obtained/Reviewed and Anes Risks/Benef Reviewed Patient Risk: Intermediate Procedure Risk: Intermediate Anesthetic Plan Anesthetic Plan: GA Disposition: Inp. Admit - [facility]
--- NOTE | 2020-06-18 15:22 | PM.OP ---
Brief Operative Note Date of Service: 06/18/20 Pre-op diagnosis: GI bleed, esophagral varices Post-op diagnosis: same Procedure: see op note Surgeon: Galina Brody MD Anesthesia: MAC Estimated blood loss (mL): 0 Condition: stable Disposition: PACU
--- NOTE | 2020-06-18 15:41 | W.PM.OPN ---
Operative Note Operative Note Date of Service: 06/18/20 Narrative: Procedure Description: EGD FLEXIBLE TRANSORAL UPPER GASTROINTESTINAL ENDOSCOPY UPPER ENDOSCOPY Consent: Indications for the procedure and potential complications of bleeding, perforation, reaction to medications and missed diagnosis were discussed with the patient and informed consent was obtained. Instrument: Olympus GIF H 190 J mid size upper endoscope Monitoring: Vital signs and clinical assessment, continuous EKG monitoring, Pulse oximetry, Carbon Dioxide monitoring and blood pressure monitoring were done throughout the procedure. Procedure: The patient was placed in the left lateral decubitis position and pre-procedure medications were administered and a bite block was placed. The endoscope was inserted into the mouth and advanced under direct vision to the third part of duodenum. A careful inspection was made as the upper endoscope was withdrawn including a retroflexed examination of the proximal stomach; Findings and interventions are described below. Findings: Larynx:normal Esophagus: GE junction at 38 cm, diaphragm hiatus at 38 cm, Grade III varices noted with red hernandez x3 columns, 5 bands were applied with collapse of columns. clips from prior EGD noted, and no active bleeding seen. Stomach: Patchy gastric erythema with mosaic pattern consistent with portal hypertensive gastropathy. Grade 2 flap valve on retroflexed examination of the cardia. Duodenum: Normal bulb and descending duodenum, Intervention: esophageal variceal band ligation Impression/Findings: esophageal varices s/p banding PLAN: clear liquid diet today and advance to soft consistency diet tomorrow commence nadolol 20 mg PO as long as BP tolerates it keep on PPi BID add sucralfate to reduce risk of post banding ulceration and bleeding repeat EGD in 2-4 weeks
[2020-06-18 17:26] LABS: Glucose, Whole Blood 133 mg/dL (60-115)
--- NOTE | 2020-06-18 18:01 | PM.PNNEP ---
Subjective Subjective Date of Service: 06/18/20 Interval history: the patient was seen and evaluated this morning Laying in bed, feels comfortable overall, more alert and interactive today Abdomen more distended Hemoglobin dropped to 6.5- For a transfusion Systemic review: No fever, chills but have general weakness No chest pain, palpitation No shortness of breath or coughing No abdominal pain, has significant abdominal distention No urinary symptoms No any rash or wounds Physical Exam Vital Signs: Vital Signs: Last Vital Signs Temp 98.3 F 06/18/20 15:47 Pulse 88 06/18/20 16:00 Resp 20 06/18/20 16:00 BP 136/71 06/18/20 16:00 Pulse Ox 93 06/18/20 16:00 Body Mass Index 25.8 Const: General: comfortable and no acute distress Nutritional Appearance: thin HENMT: Head: Yes normocephalic and Yes atraumatic Eyes: Other: subconjunctival pallor General: appearance normal, both eyes and all related structures Pupils: Equal, round and reactive pupils present EOM: EOMs intact bilaterally Neck: Neck: Yes normal visual inspection and Yes supple Chest: Chest palpation & inspection: normal inspection of the chest Resp: Effort & Inspection: normal respiratory effort Cardio: Jugular venous distension: no JVD Rate: regular rate Rhythm: regular rhythm Heart sounds: S1 normal heart sound present and S2 normal heart sound present GI: Inspection: Yes normal to inspection and Yes distended Palpation (GI): Soft to palpation, Tenderness to palpation present (GI) in the RUQ; with no rebound tenderness and Hepatomegaly present Auscultation: normal bowel sounds and Hyperactive bowel sounds present Rectal Exam - Male: Yes deferred Skin: General skin exam: no rashes or lesions noted and dry skin Neuro: Cranial nerves: Yes Equal, round and reactive pupils present Psych: Appearance: disheveled Objective Data Labs CBC & Chem 7: 06/18/20 05:17 06/18/20 05:17 Labs: Laboratory Results - last 24 hr 06/17/20 06/18/20 06/18/20 21:36 05:17 05:17 WBC 7.9 RBC 2.28 L Hgb 6.5 L* Hct 20.9 L* MCV 91.7 MCH 28.5 MCHC 31.1 RDW 17.3 H Plt Count 169 MPV 11.0 Absolute Nucleated RBC 0.030 H Nucleated RBC % (auto) 0.4 H PT 15.5 H INR 1.3 H Sodium Potassium Chloride Carbon Dioxide Anion Gap BUN Creatinine Estim Creat Clear Calc Estimated GFR POC Glucose 154 H Random Glucose Calcium Total Bilirubin Direct Bilirubin AST ALT Alkaline Phosphatase Total Protein Albumin Blood Type Antibody Screen Crossmatch 06/18/20 06/18/20 06/18/20 05:17 06:39 07:02 WBC RBC Hgb Hct MCV MCH MCHC RDW Plt Count MPV Absolute Nucleated RBC Nucleated RBC % (auto) PT INR Sodium 147 H Potassium 3.4 Chloride 116 H Carbon Dioxide 23 Anion Gap 11 L BUN 30 H Creatinine 0.81 Estim Creat Clear Calc 70.2 Estimated GFR > 60 POC Glucose 168 H Random Glucose 189 H Calcium 7.3 L Total Bilirubin 1.4 H Direct Bilirubin 1.1 H AST 72 H ALT 40 Alkaline Phosphatase 257 H D Total Protein 5.0 L Albumin 2.6 L Blood Type O Positive Antibody Screen NEGATIVE Crossmatch See Detail 06/18/20 06/18/20 10:58 17:19 WBC RBC Hgb Hct MCV MCH MCHC RDW Plt Count MPV Absolute Nucleated RBC Nucleated RBC % (auto) PT INR Sodium Potassium Chloride Carbon Dioxide Anion Gap BUN Creatinine Estim Creat Clear Calc Estimated GFR POC Glucose 141 H 133 H Random Glucose Calcium Total Bilirubin Direct Bilirubin AST ALT Alkaline Phosphatase Total Protein Albumin Blood Type Antibody Screen Crossmatch Assessment & Plan Assessment and plan (1) Anemia: Status: Acute (2) Hypernatremia: Status: Acute (3) Acute kidney injury: Status: Acute (4) Acute hyperkalemia: Status: Acute (5) Acute hyperglycemia: Status: Acute (6) Acute upper GI bleed: Problem details: Octeotride ongoing Status: Acute (7) Cirrhosis: Problem details: appreciate GI recs Status: Acute (8) Blood loss anemia: Status: Acute (9) Type 2 diabetes mellitus with hyperglycemia: Status: Acute Assessment and Plan: 1. Hypernatremia - Due to free water deficit - No Polyuria - Doubt DI 2. Acute kidney injury 3. ESLD 4. Anemia - GI bleed Plan: - Hemodynamically stable, - For PRBC transfusion for anemai -Re : Hypernatremia for now-agree with increasing D5W as ordered - Avoid nephrotoxins - Would consider starting Spirinolactone 25 mg daily and Loop[ diuetic Bumex 1 mg daily in 24 hrs f/u Na Thx Dr. Kirkland Time Spent With Patient Time: Total time spent is greater than 50% in coordination of care (as documented) at patient's floor/unit and/or counseling patient: Procedures Date of Service Date of Service: 06/18/20
[2020-06-18] MEDS: Sucralfate Oral Suspension 1 GM/10 ML ORAL.SUSP PO (20:48)
[2020-06-18 20:49] LABS: Glucose, Whole Blood 137 mg/dL (60-115)
[2020-06-18 21:50] LABS: Anion Gap 12 (12-20); Blood Urea Nitrogen 23 mg/dL (9-16); Calcium 7.3 mg/dL (8.4-10.2); Carbon Dioxide 22 mmol/L (22-29); Chloride 111 mmol/L (96-108); Creatinine Clr Calc Pharmacy 76.8; Estimated Glomerular Filt Rate > 60; Glucose Random 143 mg/dL (60-115); Potassium 3.4 mmol/L (3.3-5.1); Sodium 142 mmol/L (135-145)
[2020-06-19] VITALS (9 sets, daily range): BP systolic 104–124; BP diastolic 55–65; PULSE 65–78; RESP 16–21; TEMP 36.5–37.4; O2SAT 97–100
[2020-06-19] MEDS: Dextrose 5 % 1,000 ML 150 ML IVCONT ×4 (00:18→18:15)
[2020-06-19] MEDS: Omeprazole 40 MG CAPSULE.DR PO ×2 (05:26→16:37)
[2020-06-19 06:08] LABS: Hematocrit 27.1 % (42-52); Hemoglobin 8.8 g/dl (14.0-18.0); Mean Corpuscular HGB Conc 32.5 g/dl (31.0-36.0); Mean Corpuscular Hemoglobin 29.3 pg (27.0-33.0); Mean Corpuscular Volume 90.3 fL (80-98); Mean Platelet Volume 11.6 fL (9.4-12.4); NRBC Pct Auto 0.3 /100WBC (0.0-0.2); Platelet Count 177 X10*3/uL (160-400); White Blood Count 7.4 X10*3/uL (4.8-10.8)
[2020-06-19 06:37] LABS: Anion Gap 13 (12-20); Blood Urea Nitrogen 20 mg/dL (9-16); Calcium 7.3 mg/dL (8.4-10.2); Carbon Dioxide 22 mmol/L (22-29); Chloride 110 mmol/L (96-108); Estimated Glomerular Filt Rate > 60; Glucose Random 177 mg/dL (60-115); Potassium 3.5 mmol/L (3.3-5.1); Sodium 141 mmol/L (135-145)
[2020-06-19 07:27] LABS: Glucose, Whole Blood 166 mg/dL (60-115)
[2020-06-19] MEDS: Insulin Glargine,Hum.rec.anlog 100 UNIT/ML 10 ML VIAL 10 UNIT SUBCUT (08:17)
[2020-06-19] MEDS: Sucralfate Oral Suspension 1 GM/10 ML ORAL.SUSP PO ×3 (08:17→22:07)
[2020-06-19] MEDS: Insulin Lispro 100 UNIT/ML 3 ML VIAL SUBCUT (08:17)
[2020-06-19] MEDS: cefTRIAXone sodium 1 GM in 0.9 % Sodium Chloride 50 ML IV (08:19)
--- NOTE | 2020-06-19 08:56 | HO.POSTANES ---
Post Anesthesia Evaluation Post Anesthesia Evaluation Vital Signs: Vital Signs Temp Pulse Resp BP Pulse Ox 06/19/20 08:00 98.9 F 69 16 119/64 99 06/19/20 04:00 98.0 F 73 18 113/63 98 06/19/20 00:00 99.4 F 78 20 104/62 100 Anesthesia: General Endotracheal-GETA Mental Status: Awake Pain Control: Satisfactory Nausea/Vomiting: None Hydration: Adequate Anesthesia-Related Issues: No Anes. Related Issues
--- NOTE | 2020-06-19 09:41 | HO.PM.IMPN ---
Subjective Subjective Date of Service: 06/19/20 Interval History: The patient was seen and evaluated this morning Laying in bed, feels comfortable overall, more alert and interactive Abdomen more distended Hemoglobin improved to 8.8 after transfusion no reported bloody bowel motions overnight No reported fever, chills or shortness of breath No reported other overnight events. Systemic review: No fever, chills but have general weakness No chest pain, palpitation No shortness of breath or coughing No abdominal pain, has significant abdominal distention No urinary symptoms No any rash or wounds Physical Exam Vital Signs: Vital Signs: Last Vital Signs Temp 98.9 F 06/19/20 08:00 Pulse 69 06/19/20 08:58 Resp 16 06/19/20 08:00 BP 119/64 06/19/20 08:58 Pulse Ox 99 06/19/20 08:58 Body Mass Index 25.8 Const: Other: Constitutional : Altered, not oriented, not in distress Neck : Normal inspection, Supple Cardiovascular : RRR, S1 S2, trace lower extremity edema Respiratory : Fair bilateral air entry, no crackles, wheezes or rhonchi Gastrointestinal: Abdomen is significantly distended, soft, lax, Normal bowel sounds, no tenderness , filled with ascites Skin : Warm/Dry, No rash Neurological : Altered, not oriented, No focal deficit Objective Data Current Medications Generic Name Dose Route Start Last Admin Trade Name Freq PRN Reason Stop Dose Admin Atorvastatin Calcium 40 mg 06/19/20 21:00 Atorvastatin Calcium 40 Mg Tablet PO BEDTIME ROJAS Ceftriaxone Sodium 1 gm/ 50 mls @ 100 mls/hr 06/15/20 09:30 06/19/20 08:19 Sodium Chloride IV 100 mls/hr Q24H ROJAS Administration Insulin Glargine 10 unit 06/14/20 14:35 06/19/20 08:17 Insulin Glargine,Hum.Rec.Anlog 100 Unit/Ml 10 Ml Vial SUBCUT 10 unit DAILY ROJAS Administration Insulin Human Lispro 0 unit 06/15/20 16:30 06/19/20 08:17 Insulin Lispro 100 Unit/Ml 3 Ml Vial SUBCUT 2 unit QIDACHS ROJAS Administration Protocol Nadolol 10 mg 06/19/20 09:00 Nadolol 20 Mg Tablet PO DAILY [facility] Protocol Omeprazole 40 mg 06/17/20 13:10 06/19/20 05:26 Omeprazole 40 Mg Capsule. PO 40 mg BID@0630,1630 [facility] Administration Ondansetron HCl 4 mg 06/18/20 15:47 Ondansetron Hcl 4 Mg/2 Ml Vial IVPUSH ONCE PRN Nausea and Vomiting Sucralfate 1 gm 06/18/20 21:00 06/19/20 08:17 Sucralfate Oral Suspension 1 Gm/10 Ml Oral.Susp PO 1 gm QIDACHS ROJAS Administration Tamsulosin HCl 0.4 mg 06/19/20 17:00 Tamsulosin Hcl 0.4 Mg Capsule PO DAILY@1700 [facility] Labs CBC & Chem 7: 06/19/20 05:21 06/19/20 05:21 Assessment and Plan (1) Anemia: Status: Acute (2) Hypernatremia: Status: Acute (3) Acute kidney injury: Status: Acute (4) Acute hyperkalemia: Status: Acute (5) Acute hyperglycemia: Status: Acute (6) Acute upper GI bleed: Problem details: Octeotride ongoing Status: Acute (7) Cirrhosis: Problem details: appreciate GI recs Status: Acute (8) Blood loss anemia: Status: Acute (9) Type 2 diabetes mellitus with hyperglycemia: Status: Acute Assessment and Plan: A 70-year-old male with a past medical history of hypertension, hyperlipidemia, diabetes, liver cirrhosis, history portal vein thrombosis-not on anticoagulation, history of gallstones presented admitted d/t massive rectal bleeding with acute blood loss anemia that required multiple blood transfusion, electrolytes abnormalities, and renal failure. Underwent emergent EGD and found to have visible bleeding vessel (Dieulafoy lesion) in the stomach that was amenable to hemostasis. Metabolic encephalopathy resolving treat underlying causes Hypernatremia Na 141 today DC D5W follow BMP Acute upper GI Bleeding d/t bleeding vessel seen on EGD 06/[address] Brody with successful hemostasis achieved by clipping, reevaluated 06/18 no more bleeding EGD 06/18 showed Varices with no bleeding, Nadolol and Sucralfate started GI following. To repeat EGD in 2-4 weeks bland diet today PO PPI bid Acute Blood loss anemia s/p 5 units of RBC on 06/14, 1 unit of Plasma Hb improved to 8.8 after 1 unit transfusion No reported overnight melena Ascites Increasing in amount with IV fluids Plan to do paracentesis today for therapeutic reason To give albumin afterward TREMAYNE Likely pre-renal Cr return to normal. Nephrology following Hyperkalemia Resolved Metabolic acidosis: Bicarb improved to 20 post bicab drip Diabetes clears 10 units Lantus SSI Abdominal pain Transaminitis Portal V thrombosis, avoid blood thinners with bleed The patient has known liver cirrhosis. Hold home statin. Monitor levels. Moderate protein malnutrition to add Ensure DVT prophylaxis: SCD boots Code status: Full code
[2020-06-19] MEDS: nadoloL 20 MG TABLET 10 MG PO (10:03)
[2020-06-19 11:40] LABS: Glucose, Whole Blood 53 mg/dL (60-115)
[2020-06-19 12:25] LABS: Glucose, Whole Blood 50 mg/dL (60-115)
[2020-06-19 13:11] LABS: Glucose, Whole Blood 141 mg/dL (60-115)
--- NOTE | 2020-06-19 14:26 | MHC.CM.PN ---
Met with pt to review d/c planning. PT recommends STR - discussed with pt who declined wanting STR. I have help - my brother and two sisters. We all take care of my mother, too. Discussed PT findings with emphasis on safety and possible O2 needs. Pt continued to decline, I want to go home Review of [facility] referral notes decline from [facility] d/t pt not having a recent visit with PCP Dr. Rosario and hx of non compliance and no shows. Will refer to other agencies in the event they will accept pt onto service. D/C Plan: Home with [facility] (referral will be made) and family support. Brother to transport pt home
[2020-06-19 15:03] LABS: Glucose, Whole Blood 108 mg/dL (60-115)
[2020-06-19 16:22] LABS: Anion Gap 15 (12-20); Blood Urea Nitrogen 18 mg/dL (9-16); Calcium 7.3 mg/dL (8.4-10.2); Carbon Dioxide 20 mmol/L (22-29); Chloride 109 mmol/L (96-108); Estimated Glomerular Filt Rate > 60; Glucose Random 91 mg/dL (60-115); Potassium 3.8 mmol/L (3.3-5.1); Sodium 140 mmol/L (135-145)
[2020-06-19 16:36] LABS: Glucose, Whole Blood 73 mg/dL (60-115)
[2020-06-19] MEDS: Tamsulosin HCL 0.4 MG CAPSULE PO (16:37)
--- NOTE | 2020-06-19 20:54 | PM.PNNEP ---
Subjective Subjective Date of Service: 06/19/20 Interval history: The patient was seen and evaluated this morning Laying in bed, feels comfortable overall, more alert and interactive Physical Exam Vital Signs: Vital Signs: Last Vital Signs Temp 97.9 F 06/19/20 20:00 Pulse 65 06/19/20 20:00 Resp 16 06/19/20 20:00 BP 110/57 L 06/19/20 20:00 Pulse Ox 97 06/19/20 20:00 Body Mass Index 25.8 Const: General: comfortable and no acute distress Nutritional Appearance: thin HENMT: Head: Yes normocephalic and Yes atraumatic Eyes: Other: subconjunctival pallor General: appearance normal, both eyes and all related structures Pupils: Equal, round and reactive pupils present EOM: EOMs intact bilaterally Neck: Neck: Yes normal visual inspection and Yes supple Chest: Chest palpation & inspection: normal inspection of the chest Resp: Effort & Inspection: normal respiratory effort Cardio: Jugular venous distension: no JVD Rate: regular rate Rhythm: regular rhythm Heart sounds: S1 normal heart sound present and S2 normal heart sound present GI: Inspection: Yes normal to inspection and Yes distended Palpation (GI): Soft to palpation, Tenderness to palpation present (GI) in the RUQ; with no rebound tenderness and Hepatomegaly present Auscultation: normal bowel sounds and Hyperactive bowel sounds present Rectal Exam - Male: Yes deferred Skin: General skin exam: no rashes or lesions noted and dry skin Neuro: Cranial nerves: Yes Equal, round and reactive pupils present Psych: Appearance: disheveled Objective Data Labs CBC & Chem 7: 06/19/20 05:21 06/19/20 15:46 Labs: Laboratory Results - last 24 hr 06/18/20 06/18/20 06/19/20 06:39 21:02 05:21 WBC 7.4 RBC 3.00 L D Hgb 8.8 L D Hct 27.1 L D MCV 90.3 MCH 29.3 MCHC 32.5 RDW 16.0 Plt Count 177 MPV 11.6 Absolute Nucleated RBC 0.020 H Nucleated RBC % (auto) 0.3 H Sodium 142 Potassium 3.4 Chloride 111 H Carbon Dioxide 22 Anion Gap 12 BUN 23 H Creatinine 0.74 Estim Creat Clear Calc 76.8 Estimated GFR > 60 POC Glucose Random Glucose 143 H Calcium 7.3 L Blood Type O Positive Antibody Screen NEGATIVE Crossmatch See Detail 06/19/20 06/19/20 06/19/20 05:21 07:05 11:36 WBC RBC Hgb Hct MCV MCH MCHC RDW Plt Count MPV Absolute Nucleated RBC Nucleated RBC % (auto) Sodium 141 Potassium 3.5 Chloride 110 H Carbon Dioxide 22 Anion Gap 13 BUN 20 H Creatinine 0.72 Estim Creat Clear Calc 79.0 Estimated GFR > 60 POC Glucose 166 H 53 L* Random Glucose 177 H Calcium 7.3 L Blood Type Antibody Screen Crossmatch 06/19/20 06/19/20 06/19/20 12:19 13:08 14:16 WBC RBC Hgb Hct MCV MCH MCHC RDW Plt Count MPV Absolute Nucleated RBC Nucleated RBC % (auto) Sodium Potassium Chloride Carbon Dioxide Anion Gap BUN Creatinine Estim Creat Clear Calc Estimated GFR POC Glucose 50 L* 141 H 108 Random Glucose Calcium Blood Type Antibody Screen Crossmatch 06/19/20 06/19/20 15:46 16:22 WBC RBC Hgb Hct MCV MCH MCHC RDW Plt Count MPV Absolute Nucleated RBC Nucleated RBC % (auto) Sodium 140 Potassium 3.8 Chloride 109 H Carbon Dioxide 20 L Anion Gap 15 BUN 18 H Creatinine 0.72 Estim Creat Clear Calc 79.0 Estimated GFR > 60 POC Glucose 73 Random Glucose 91 D Calcium 7.3 L Blood Type Antibody Screen Crossmatch Assessment & Plan Assessment and plan (1) Anemia: Status: Acute (2) Hypernatremia: Status: Acute (3) Acute kidney injury: Status: Acute (4) Acute hyperkalemia: Status: Acute (5) Acute hyperglycemia: Status: Acute (6) Acute upper GI bleed: Problem details: Octeotride ongoing Status: Acute (7) Cirrhosis: Problem details: appreciate GI recs Status: Acute (8) Blood loss anemia: Status: Acute (9) Type 2 diabetes mellitus with hyperglycemia: Status: Acute Assessment and Plan: 1. Hypernatremia - Due to free water deficit - No Polyuria - Doubt DI 2. Acute kidney injury 3. ESLD 4. Anemia - GI bleed Plan: - Hemodynamically stable, - As needed PRBC transfusion -Re : Hypernatremia - Na is better - Avoid nephrotoxins - Would consider starting Spirinolactone 25 mg daily and Loop[ diuetic Bumex 1 mg daily in 24 hrs f/u Na Adal sign off please reconsult PRN Thx Dr. Kirkland Time Spent With Patient Time: Total time spent is greater than 50% in coordination of care (as documented) at patient's floor/unit and/or counseling patient: Procedures Date of Service Date of Service: 06/19/20
[2020-06-19 21:52] LABS: Glucose, Whole Blood 47 mg/dL (60-115)
[2020-06-19 21:52] LABS: Glucose, Whole Blood 51 mg/dL (60-115)
[2020-06-19 22:04] LABS: Glucose, Whole Blood 53 mg/dL (60-115)
[2020-06-19] MEDS: Atorvastatin Calcium 40 MG TABLET PO (22:07)
[2020-06-19 22:59] LABS: Glucose Random 63 mg/dL (60-115)
[2020-06-20] VITALS (9 sets, daily range): BP systolic 96–116; BP diastolic 53–64; PULSE 65–82; RESP 11–26; TEMP 36.4–37; O2SAT 94–98
[2020-06-20 00:54] LABS: Glucose, Whole Blood 79 mg/dL (60-115)
[2020-06-20] MEDS: Dextrose 5 % 1,000 ML 150 ML IVCONT (02:03)
--- NOTE | 2020-06-20 04:40 | PC.NURSE ---
2100 POC 47& redraw 51. Patient given orange juice with minimal effect. Redraw 53 notified and amp of D50 given as ordered. Patient drinking OJ and has D5 running at 150ml/hr. redraw poc:79.
[2020-06-20] MEDS: Omeprazole 40 MG CAPSULE.DR PO ×2 (05:56→16:35)
[2020-06-20 07:33] LABS: Glucose, Whole Blood 78 mg/dL (60-115)
[2020-06-20 08:58] LABS: Glucose, Whole Blood 53 mg/dL (60-115)
[2020-06-20 08:58] LABS: Glucose, Whole Blood 55 mg/dL (60-115)
[2020-06-20] MEDS: nadoloL 20 MG TABLET 10 MG PO (08:59)
[2020-06-20] MEDS: Sucralfate Oral Suspension 1 GM/10 ML ORAL.SUSP PO ×4 (08:59→20:52)
[2020-06-20] MEDS: Furosemide 20 MG TABLET PO (09:01)
[2020-06-20] MEDS: cefTRIAXone sodium 1 GM in 0.9 % Sodium Chloride 50 ML IV (10:27)
--- NOTE | 2020-06-20 10:43 | HO.PM.IMPN ---
Subjective Subjective Date of Service: 06/20/20 Interval History: The patient was seen and evaluated this morning Laying in bed, feels comfortable overall, more alert and interactive Removal of 3.5 L from abdomen, still distended though With 2 L of oxygen no reported bloody bowel motions overnight No reported fever, chills or shortness of breath No reported other overnight events. Systemic review: No fever, chills but have general weakness No chest pain, palpitation No shortness of breath or coughing No abdominal pain, has significant abdominal distention No urinary symptoms No any rash or wounds Physical Exam Vital Signs: Vital Signs: Last Vital Signs Temp 97.5 F 06/20/20 07:48 Pulse 72 06/20/20 08:59 Resp 17 06/20/20 07:48 BP 111/57 L 06/20/20 08:59 Pulse Ox 97 06/20/20 07:48 Body Mass Index 25.8 Const: Other: Constitutional : Altered, not oriented, not in distress Neck : Normal inspection, Supple Cardiovascular : RRR, S1 S2, trace lower extremity edema Respiratory : Fair bilateral air entry, no crackles, wheezes or rhonchi Gastrointestinal: Abdomen is significantly distended, soft, lax, Normal bowel sounds, no tenderness , filled with ascites Skin : Warm/Dry, No rash Neurological : Altered, not oriented, No focal deficit Objective Data Current Medications Generic Name Dose Route Start Last Admin Trade Name Freq PRN Reason Stop Dose Admin Atorvastatin Calcium 40 mg 06/19/20 21:00 06/19/20 22:07 Atorvastatin Calcium 40 Mg Tablet PO 40 mg BEDTIME ROJAS Administration Furosemide 20 mg 06/20/20 09:00 06/20/20 09:01 Furosemide 20 Mg Tablet PO 20 mg DAILY ROJAS Administration Protocol Ceftriaxone Sodium 1 gm/ 50 mls @ 100 mls/hr 06/15/20 09:30 06/20/20 10:27 Sodium Chloride IV 100 mls/hr Q24H ROJAS Administration Insulin Human Lispro 0 unit 06/15/20 16:30 06/20/20 09:02 Insulin Lispro 100 Unit/Ml 3 Ml Vial SUBCUT Not Given QIDACHS ROJAS Protocol Nadolol 10 mg 06/19/20 09:00 06/20/20 08:59 Nadolol 20 Mg Tablet PO 10 mg DAILY ROJAS Administration Protocol Omeprazole 40 mg 06/17/20 13:10 06/20/20 05:56 Omeprazole 40 Mg Capsule. PO 40 mg BID@0630,1630 [facility] Administration Ondansetron HCl 4 mg 06/18/20 15:47 Ondansetron Hcl 4 Mg/2 Ml Vial IVPUSH ONCE PRN Nausea and Vomiting Spironolactone 50 mg 06/20/20 17:00 Spironolactone 25 Mg Tablet PO DAILY@1700 [facility] Protocol Sucralfate 1 gm 06/18/20 21:00 06/20/20 08:59 Sucralfate Oral Suspension 1 Gm/10 Ml Oral.Susp PO 1 gm QIDACHS ROJAS Administration Tamsulosin HCl 0.4 mg 06/19/20 17:00 06/19/20 16:37 Tamsulosin Hcl 0.4 Mg Capsule PO 0.4 mg DAILY@1700 [facility] Administration Labs CBC & Chem 7: 06/19/20 05:21 06/19/20 22:25 Assessment and Plan (1) Anemia: Status: Acute (2) Hypernatremia: Status: Acute (3) Acute kidney injury: Status: Acute (4) Acute hyperkalemia: Status: Acute (5) Acute hyperglycemia: Status: Acute (6) Acute upper GI bleed: Problem details: Octeotride ongoing Status: Acute (7) Cirrhosis: Problem details: appreciate GI recs Status: Acute (8) Blood loss anemia: Status: Acute (9) Type 2 diabetes mellitus with hyperglycemia: Status: Acute Assessment and Plan: A 70-year-old male with a past medical history of hypertension, hyperlipidemia, diabetes, liver cirrhosis, history portal vein thrombosis-not on anticoagulation, history of gallstones presented admitted d/t massive rectal bleeding with acute blood loss anemia that required multiple blood transfusion, electrolytes abnormalities, and renal failure. Underwent emergent EGD and found to have visible bleeding vessel (Dieulafoy lesion) in the stomach that was amenable to hemostasis. Metabolic encephalopathy resolving treat underlying causes Hypernatremia Na 141 today DC D5W follow BMP Hyperglycemia Multiple episodes of low blood sugar noticed yesterday Discontinue Lantus kept on IV fluids overnight Continue to monitor Acute upper GI Bleeding d/t bleeding vessel seen on EGD 06/[address] Brody with successful hemostasis achieved by clipping, reevaluated 06/18 no more bleeding EGD 06/18 showed Varices with no bleeding, bands applied On ceftriaxone day 5 Nadolol and Sucralfate started GI following. To repeat EGD in 2-4 weeks bland diet today PO PPI bid Acute Blood loss anemia s/p 5 units of RBC on 06/14, 1 unit of Plasma Hb improved to 8.8 after 1 unit transfusion No reported overnight melena Ascites Paracentesis done with removal of 3.5 L Start spironolactone and Lasix TREMAYNE Likely pre-renal Cr return to normal. Nephrology following Hyperkalemia Resolved Diabetes Stop Lantus SSI Abdominal pain Transaminitis Portal V thrombosis, avoid blood thinners with bleed The patient has known liver cirrhosis. Hold home statin. Monitor levels. Moderate protein malnutrition to add Ensure DVT prophylaxis: SCD boots Code status: Full code
[2020-06-20 11:31] LABS: Glucose, Whole Blood 89 mg/dL (60-115)
--- NOTE | 2020-06-20 13:50 | MHC.CM.PN ---
Per discussion with MD at rounds: pt will be able to d/c to home on 06/21 with [facility] and family support (brother and sisters). Brother will transport pt home.
[2020-06-20 16:34] LABS: Glucose, Whole Blood 97 mg/dL (60-115)
[2020-06-20] MEDS: Spironolactone 25 MG TABLET 50 MG PO (16:35)
[2020-06-20] MEDS: Tamsulosin HCL 0.4 MG CAPSULE PO (16:37)
[2020-06-20] MEDS: Atorvastatin Calcium 40 MG TABLET PO (20:52)
[2020-06-20 21:12] LABS: Glucose, Whole Blood 117 mg/dL (60-115)
[2020-06-21] VITALS: BP 110/58; PULSE 76; RESP 18; TEMP 36.7; O2SAT 95
[2020-06-21 04:00] VITALS: BP 126/56; PULSE 72; RESP 20; TEMP 36.6; O2SAT 95
[2020-06-21] MEDS: Omeprazole 40 MG CAPSULE.DR PO (05:22)
[2020-06-21 05:31] LABS: Hematocrit 28.2 % (42-52); Hemoglobin 9.1 g/dl (14.0-18.0); Mean Corpuscular HGB Conc 32.3 g/dl (31.0-36.0); Mean Corpuscular Hemoglobin 29.1 pg (27.0-33.0); Mean Corpuscular Volume 90.1 fL (80-98); Mean Platelet Volume 11.3 fL (9.4-12.4); Platelet Count 273 X10*3/uL (160-400); Red Blood Count 3.13 X10*6/uL (4.60-5.80); White Blood Count 8.8 X10*3/uL (4.8-10.8)
[2020-06-21 05:58] LABS: Anion Gap 13 (12-20); Blood Urea Nitrogen 21 mg/dL (9-16); Calcium 7.6 mg/dL (8.4-10.2); Carbon Dioxide 20 mmol/L (22-29); Chloride 107 mmol/L (96-108); Creatinine Clr Calc Pharmacy 61.8; Estimated Glomerular Filt Rate > 60; Glucose Random 86 mg/dL (60-115); Potassium 3.5 mmol/L (3.3-5.1); Sodium 136 mmol/L (135-145)
[2020-06-21 07:41] VITALS: BP 120/62; PULSE 78; RESP 14; TEMP 36.5; O2SAT 95
[2020-06-21 07:45] VITALS: BP 120/62; PULSE 79
[2020-06-21] MEDS: Sucralfate Oral Suspension 1 GM/10 ML ORAL.SUSP PO (07:45)
[2020-06-21] MEDS: Furosemide 20 MG TABLET PO (07:45)
[2020-06-21] MEDS: nadoloL 20 MG TABLET 10 MG PO (07:45)
[2020-06-21 08:32] LABS: Glucose, Whole Blood 85 mg/dL (60-115)
[2020-06-21] MEDS: Bumetanide 1 MG TABLET PO (08:49)
[2020-06-21] MEDS: cefTRIAXone sodium 1 GM in 0.9 % Sodium Chloride 50 ML IV (08:50)
--- NOTE | 2020-06-21 10:15 | P.F2F_ITS ---
Service Date Service Date: 06/21/20 Encounter Date of encounter: 06/21/20 Reasons for Services Reason for group home: medication treatment, teach disease management and other Reason for physical therapy: therapeutic exercises Homebound: Leaving the home is medically contraindicated at this time without the asist of a device and/or another person due th the listed conditions above and below. Certification: Based on the above findings, I certify that this patient is confined to the home and needs intermittent group home care, physical therapy and/or speech therapy, or continues to need occupational therapy. The patient is under my care, and I have initiated the establishment of the plan of care. The patient will be followed by a physician who will periodically review the plan of care.
--- NOTE | 2020-06-21 11:10 | MHC.CM.PN ---
Received notification from Dr Frost that patient would be discharged today. Patient will be discharged home with [facility]. Patient's brother will transport him home. Met with patient to discuss discharge plan and explain IMM. Patient started dry heaving before he could sign IMM. IMM left at bedside. Continue to monitor for d/c needs.
[2020-06-21 11:40] VITALS: RESP 20
--- NOTE | 2020-06-21 12:22 | P.DS_ITS ---
DS: Providers Provider Date of Service: 06/21/20 Date of admission: 06/14/20 02:54 Primary care physician: Unknown Physician Consults: 06/14/20 02:56 Consult to General Surgery Routine Consulting Provider: Huan Delaney Reason for consultation: Gall stones; RUQ pain 06/14/20 02:57 Consult to Nephrology Routine Consulting Provider: Reuben Griffin Reason for consultation: TREMAYNE; Hyperkalemia DS: Diagnosis Discharge Diagnosis (1) Anemia: Status: Acute (2) Hypernatremia: Status: Acute (3) Acute kidney injury: Status: Acute (4) Acute hyperkalemia: Status: Acute (5) Acute hyperglycemia: Status: Acute (6) Acute upper GI bleed: Status: Acute Problem details: Octeotride ongoing (7) Cirrhosis: Status: Acute Problem details: appreciate GI recs (8) Blood loss anemia: Status: Acute (9) Type 2 diabetes mellitus with hyperglycemia: Status: Acute DS: Medications Discharge Medications Home Medications: Home Medications Medication Instructions Recorded Confirmed ascorbic acid (vitamin C) 500 mg 500 mg PO DAILY 02/19/20 06/18/20 tablet blood sugar diagnostic #10 ea 02/19/20 05/26/20 cholecalciferol (vitamin D3) 50 50 mcg PO QAM 02/19/20 06/18/20 mcg (2,000 unit) tablet ferrous sulfate 325 mg (65 mg 325 mg PO QAM 02/19/20 06/18/20 iron) tablet hydrocodone 5 mg-acetaminophen 325 1 tab PO Q8H PRN 02/19/20 06/18/20 mg tablet lancets 33 gauge #100 ea 02/19/20 05/26/20 pen needle, diabetic 32 gauge x #50 ea 02/19/20 05/26/20 tamsulosin 0.4 mg capsule 0.4 mg PO DAILY 02/19/20 06/18/20 atorvastatin 40 mg tablet 40 mg PO BEDTIME tab 03/25/20 06/18/20 gabapentin 300 mg capsule 300 mg PO BID cap 04/28/20 06/18/20 pen needle, diabetic 31 gauge x #1200 ea 04/28/20 05/26/2009/07 Previous Rx's Medication Instructions Recorded blood-glucose meter #1 ea 02/19/20 pen needle, diabetic 32 gauge x #120 ea 04/30/20 insulin glargine 100 unit/mL (3 8 unit SUBCUT DAILY 90 Days #15 ml 05/26/20 mL) subcutaneous pen insulin lispro 100 unit/mL 2 unit SUBCUT TID #15 ml 05/26/20 subcutaneous pen empagliflozin 25 mg tablet 25 mg PO QAM #30 tab 06/08/20 bumetanide 1 mg PO DAILY #30 tab 06/21/20 nadolol 20 mg PO DAILY #30 tab 06/21/20 omeprazole 40 mg PO BID@0630,1630 #60 cap 06/21/20 spironolactone 50 mg PO DAILY@1700 #30 tab 06/21/20 sucralfate 1 g PO QIDACHS 30 Days ml 06/21/20 DS: Summary Hospital Course Hospital Course: Admission note HPI 70-year-old male with a past medical history of hypertension, hyperlipidemia, diabetes, diabetic neuropathy, GERD, history of cirrhosis, question portal vein thrombosis history-not on anticoagulation presented to the hospital with a chief complaint of bright red blood per rectum. Patient is a very poor historian. Mentioned that he has been having diarrhea and noted blood in the stool for some time. Yesterday he had an episode of vomiting with blood in it. Also complains of abdominal pain going on for some time. Denies any chest pain palpitations. Mentions that he has been having lightheadedness. Denies any urinary complaints. Review of all other systems is negative except mentioned above ER course For ER team patient was guaiac positive. On labs noted to have anemia with hemoglobin of 5.3-ordered 3 units of blood transfusion; also noted to have severe metabolic acidosis with bicarb of 10-started on bicarb drip., noted TREMAYNE and hyperkalemia. Given insulin and dextrose. Noted to have transaminitis. On exam patient has right upper quadrant pain and has known history of gallstones. Currently not consult for any signs of infection. Admitted to the hospital for further management. Hospital course The patient was admitted to the hospital due to massive rectal bleeding with acute blood loss anemia that required multiple blood transfusion and massive transfusion protocol. He was admitted directly to ICU and underwent emergent EGD that found visible bleeding vessel (Dieulafoy lesion) in the stomach that was amenable to hemostasis. The patient hemoglobin went up from almost 5 to above 8.8 and remained stable during the rest of hospital stay. Repeated EGD on 06/18 showed is esophageal varices and bands were applied. Treated with IV antibiotic for 5 days. And started on Nadolol and Sucralfate. Plan to repeat EGD in 2-4 weeks by . He was noted to be in metabolic encephalopathy due to underlying hypernatremia which was treated with D5 water and brought down to normal during the hospital stay with improvement in mental status back to baseline. He was started on diet and tolerated well. Noted to have episodes of hypoglycemia which were asymptomatic. The patient has cirrhosis with significant ascites. Paracentesis was done and 3.5 L were removed. He was evaluated by Nephrology and started on Bumex and spironolactone time of discharge for fluid management. Abdominal CT showed portal vein thrombosis. Blood thinners cannot be given as the fact patient presented with bleeding. Aspirin was discontinued as well at time of discharge. Patient started on omeprazole b.i.d. started on Nadolol and Sucralfate. Bumex and spironolactone started for fluid management To repeat BMP in 1 week Time Spent with Patient Time attestation: Total time spent providing and/or coordinating discharge services: Discharge coordination time: Greater than 30 minutes Physical Exam Vital Signs: Vital Signs: Last Vital Signs Temp 97.7 F 06/21/20 07:41 Pulse 79 06/21/20 07:45 Resp 20 06/21/20 11:40 BP 120/62 06/21/20 07:45 Pulse Ox 95 06/21/20 07:41 Body Mass Index 25.8 Const: Other: Constitutional : Altered, oriented, not in distress Neck : Normal inspection, Supple Cardiovascular : RRR, S1 S2, trace lower extremity edema Respiratory : Fair bilateral air entry, no crackles, wheezes or rhonchi Gastrointestinal: Abdomen is distended, soft, lax, Normal bowel sounds, no tenderness , filled with ascites Skin : Warm/Dry, No rash Neurological : Altered, to self and place oriented, No focal deficit DS: Data Data Completed and Pending Labs on day of discharge: Laboratory Results - last 24 hr 06/20/20 06/20/20 06/21/20 16:29 21:06 04:59 WBC 8.8 RBC 3.13 L Hgb 9.1 L Hct 28.2 L MCV 90.1 MCH 29.1 MCHC 32.3 RDW 16.0 Plt Count 273 D MPV 11.3 Absolute Nucleated RBC 0.000 Nucleated RBC % (auto) 0.0 Sodium Potassium Chloride Carbon Dioxide Anion Gap BUN Creatinine Estim Creat Clear Calc Estimated GFR POC Glucose 97 117 H Random Glucose Calcium 06/21/20 06/21/20 04:59 07:38 WBC RBC Hgb Hct MCV MCH MCHC RDW Plt Count MPV Absolute Nucleated RBC Nucleated RBC % (auto) Sodium 136 Potassium 3.5 Chloride 107 Carbon Dioxide 20 L Anion Gap 13 BUN 21 H Creatinine 0.92 Estim Creat Clear Calc 61.8 Estimated GFR > 60 POC Glucose 85 Random Glucose 86 D Calcium 7.6 L Discharge Plan Discharge Patient Disposition: Home Health Service Referrals: [facility] [Other] Physician,Unknown [Primary Care Provider] - Discharge Medications: New bumetanide 1 mg Tablet 1 mg PO DAILY Qty: 30 RF: 2 omeprazole 40 mg Capsule,Delayed Release(Dr/Ec) 40 mg PO BID@0630,1630 Qty: 60 RF: 2 sucralfate 100 mg/mL Suspension 1 g PO QIDACHS 30 Days RF: 1 nadolol 20 mg Tablet 20 mg PO DAILY Qty: 30 RF: 1 spironolactone 25 mg Tablet 50 mg PO DAILY@1700 Qty: 30 RF: 1 Continued (DME) pen needle, diabetic [BD Ultra-Fine Gerri Pen Needle] 32 gauge x 5/32 needle See Rx Instructions .ROUTE .MEDSUPPLY Qty: 120 RF: 3 empagliflozin [Jardiance] 25 mg tablet 25 mg PO QAM Qty: 30 RF: 1 (DME) pen needle, diabetic 32 gauge x 5/32 needle See Rx Instructions ea .ROUTE .MEDSUPPLY Qty: 50 RF: 0 (DME) blood sugar diagnostic Strip See Rx Instructions ea Not Applicable .MEDSUPPLY Qty: 10 RF: 0 ferrous sulfate 325 mg (65 mg iron) tablet 325 mg PO QAM RF: 0 (DME) lancets 33 gauge misc See Rx Instructions ea Not Applicable .MEDSUPPLY Qty: 100 RF: 0 cholecalciferol (vitamin D3) 50 mcg (2,000 unit) tablet 50 mcg PO QAM RF: 0 tamsulosin 0.4 mg capsule 0.4 mg PO DAILY RF: 0 ascorbic acid (vitamin C) 500 mg tablet 500 mg PO DAILY RF: 0 hydrocodone-acetaminophen 5-325 mg tablet 1 tab PO Q8H PRN (Reason: pain) RF: 0 (DME) blood-glucose meter [FreeStyle Lite Meter] Kit See Rx Instructions .ROUTE .MEDSUPPLY Qty: 1 RF: 0 atorvastatin 40 mg tablet 40 mg PO BEDTIME RF: 0 gabapentin 300 mg capsule 300 mg PO BID RF: 0 (DME) pen needle, diabetic 31 gauge x 5/16 needle See Rx Instructions ea .ROUTE DAILY Qty: 1200 RF: 0 insulin glargine 100 unit/mL (3 mL) insulin pen 8 unit subcut DAILY 90 Days Qty: 15 RF: 2 insulin lispro [Humalog KwikPen Insulin] 100 unit/mL insulin pen 2 unit subcut TID Qty: 15 RF: 2 Discontinued lisinopril-hydrochlorothiazide 20-25 mg tablet 1 tab PO DAILY RF: 0 omeprazole 20 mg capsule,delayed release(DR/EC) 20 mg PO DAILY RF: 0 aspirin 81 mg tablet,delayed release (DR/EC) 81 mg PO BEDTIME RF: 0 Discharge Orders: Discharge Order (Routine); Ordered 06/21/20 Ordered By: Sera Frost Diet: advance to usual diet Activity on Discharge: As tolerated Stand Alone Forms: Patient Portal Discharge page Other Ambulatory Orders: Basic Metabolic Panel (Routine) Timeframe: 1 Week Facility: [facility] - Location: Laboratory Ordered By: Sera Frost Care Plan Goals: Read below Health Concerns: Read below Plan of Treatment: You were admitted to the hospital for evaluation of gastrointestinal bleeding requiring EGD study that showed a actively bleeding vessel. It was controlled by residential pest control technician in your care tender monitoring with transfusion of blood with good response. A repeat study showed stable vessel and bands were applied to multiple esophageal dilated veins called . . Your required total of 5 units of blood transfusion. Ascites fluid was evaluated and removed by the needed almost 4 L. You were started on Bumex and spironolactone as water pills. You will need to follow-up with Gastroenterology as outpatient Continue Bumex, spironolactone, omeprazole as prescribed Discharge Date/Time: 06/21/20 11:43
== END 2020-06-21 11:43 | disposition home health service (06) | DRG 377 ==
LOC: HO.ED 06-14 01:43 → HO.EDOVER 06-14 07:05 → HO.IMC 06-14 12:19 → HO.ICU 06-14 13:45
PROVIDERS: Internal Medicine; Internal Medicine Gastroenterology; Internal Medicine Pulmonary Disease; Physician Assistant Medical; Admitting Provider Hospitalist; Emergency Provider Emergency Medicine; Visit Provider Student in an Organized Health Care Education/Training Program
PROC: 0DJ08ZZ Inspection of Upper Intestinal Tract, Via Natural or Artificial Opening Endoscopic (ICD-10-PCS; CPT 43235; principal; 2020-06-14 13:30)
DX: K31.82 Dieulafoy lesion (hemorrhagic) of stomach and duodenum (principal); I85.11 Secondary esophageal varices with bleeding; G93.41 Metabolic encephalopathy; I81 Portal vein thrombosis; K62.5 Hemorrhage of anus and rectum; N17.9 Acute kidney failure, unspecified; E87.2 Acidosis; D62 Acute posthemorrhagic anemia; E87.0 Hyperosmolality and hypernatremia; K76.6 Portal hypertension; E44.0 Moderate protein-calorie malnutrition; E78.5 Hyperlipidemia, unspecified; E87.5 Hyperkalemia; E11.42 Type 2 diabetes mellitus with diabetic polyneuropathy; K74.60 Unspecified cirrhosis of liver; K31.89 Other diseases of stomach and duodenum; Z68.25 Body mass index [BMI] 25.0-25.9, adult; K21.9 Gastro-esophageal reflux disease without esophagitis; R74.01 Elevation of levels of liver transaminase levels; E11.65 Type 2 diabetes mellitus with hyperglycemia; Z20.822 Contact with and (suspected) exposure to COVID-19; Z79.4 Long term (current) use of insulin; Z79.891 Long term (current) use of opiate analgesic; Z79.899 Other long term (current) drug therapy
CPT/HCPCS: 36415; 36430; 49083; 74176; 76705; 80048; 80076; 80307; 80320; 81001; 82105; 82272; 82803; 82947; 83036; 85025; 85027; 85060; 85610; 86850; 86900; 86923; 87635; 93005; 93976; 96361; 96365; 96367; 96375; 97110; 97116; 97162; 99232; 99283; 99284; 99285; C1729; J0171; J0330; J0610; J0696; J2354; J2370; J2405; P9016; P9017; P9047

== ENCOUNTER 2020-06-30 18:00 | Inpatient (IN) | payer MEDICARE, MEDICAID, SELFPAY ==
--- NOTE | ~2020-06-30 | US_ITS ---
EXAMINATION: ULTRASOUND-GUIDED PARACENTESIS. CLINICAL INFORMATION: Diffuse ascites. COMPARISON: None TECHNIQUE: Following explaining ultrasound guided paracentesis procedure, benefits and risk, a written consent was obtained. Patient was placed supine on ultrasound stretcher and preliminary ultrasound imaging was obtained through the abdomen. An optimal site was selected along the right anterolateral abdomen wall and marked. The marked site was cleaned with 2% Chlorhexidine solution and draped in sterile fashion. 1% lidocaine was injected at puncture site. Through a small skin incision a 5 Syriac Yueh catheter was inserted into the peritoneal space. After observing fluid return, stylet was withdrawn and catheter connected to vacuum bottles via connecting cannula. After obtaining all fluid and observing no more fluid return, catheter was withdrawn and complete hemostasis achieved at puncture site. Sterile bandage applied postprocedure. Patient tolerated procedure extremely well. FINDINGS: On preliminary ultrasound imaging there is moderate to large ascites. The liver is heterogenous and has a lobulated contour suggestive of cirrhosis. Approximately 2.5 L of clear yellowish fluid was drained and sent for culture, cell differentiation and cell count. US/US paracentesis abd w/image IMPRESSION: Successful ultrasound-guided diagnostic and therapeutic paracentesis performed.
--- NOTE | ~2020-06-30 | FL_ITS ---
EXAMINATION: XR FLUOROSCOPY WITH IMAGES CLINICAL INFORMATION: Cystoscopy, retrograde pyelogram, bilateral stent COMPARISON: None. TECHNIQUE: Fluoroscopy performed by Dr. Butch Langford. Fluoroscopy time: 21.5 seconds DAP: 7.95 mGycm2 Images: 2 FINDINGS: Fluoroscopic imaging guidance was made available for a procedure. 2 fluoroscopic matrix images are available for review. These images show contrast injection into the collecting system and placement of a ureteral stent. FL/FL guidance in OR IMPRESSION: Fluoroscopic imaging guidance for procedure. For detail regarding procedure and findings, please refer to the operative report.
--- NOTE | ~2020-06-30 | XR_ITS ---
EXAMINATION: XR CHEST CLINICAL INFORMATION: Aspiration pneumonia. COMPARISON: Chest x-ray 09/12/2018 TECHNIQUE: Frontal portable view of the chest was obtained. 6:26 PM FINDINGS: No significant abnormality is noted involving the heart, lungs, mediastinum, bony thorax or soft tissues. XR/XR chest 1V IMPRESSION: Unremarkable examination.
--- NOTE | ~2020-06-30 | CT_ITS ---
EXAMINATION: CT ABDOMEN AND PELVIS WITHOUT CONTRAST CLINICAL INFORMATION: acute renal failure, r/o obstruction, ascites w/ tenderness COMPARISON: CT scan pelvis 06/14/2020 TECHNIQUE: Multidetector volumetric imaging was performed from the superior aspect of the liver through the pubic symphysis. Sagittal and coronal reformatted images were obtained on the technologist's workstation. This CT examination was performed using dose optimization techniques as appropriate, variously including the following: *Automated exposure control *Adjustment of mA and/or kV according to patient size (this includes techniques or standardized protocols for targeted exams where dose is matched to indication/reason for exam; i.e. extremities or head) *Use of iterative reconstruction technique DLP: 419 mGy-cm FINDINGS: LUNG BASES: The visualized lung bases are unremarkable. LIVER, GALLBLADDER, AND BILIARY TREE: There is a micronodular contour of the liver surface consistent with cirrhosis. Liver is enlarged. Right lobe of liver measures 23 cm superior inferior. No focal liver lesions or intrahepatic bile duct dilatation. Fluid in the gallbladder is near isodense with the liver. There is no bile duct dilatation. PANCREAS: Unremarkable. SPLEEN: Unremarkable. ADRENAL GLANDS: Unremarkable. KIDNEYS AND URETERS: There is an 8 mm stone in the upper pole of left kidney which is not obstructive. This is unchanged since prior study. There is no ureteral calculi. There is no hydronephrosis. BLADDER: Unremarkable. GASTROINTESTINAL TRACT: No acute abnormality. There is no bowel wall thickening /edema. There is no bowel obstruction. There is a moderate volume of stool in the colon. The appendix is nonvisualized . The small bowel loops are unremarkable. The stomach is normal. Surgical clips at the GE junction. There is no hiatal hernia. MESENTERY: There is a small to moderate volume of abdominal ascites. No free air. There is no inflammation. ABDOMINAL WALL: No significant hernia is appreciated. LYMPH NODES: Normal. VASCULAR: Atherosclerotic vascular calcifications of aorta and iliac arteries. PELVIC VISCERA: Unremarkable. OSSEOUS STRUCTURES: Multilevel degenerative spondylosis spine. There is anterior wedge compression deformity of T11 vertebrae with kyphosis of the spine at this disc level. This is unchanged since prior CAT scan. CT/CT abdomen pelvis wo con IMPRESSION: 1. No acute abnormality. 2. Cirrhosis of liver. Abdominal ascites. 3. Nonobstructive left renal stone.
--- NOTE | ~2020-06-30 | US_ITS ---
EXAMINATION: US RETROPERITONEAL LIMITED (RENAL ONLY) CLINICAL INFORMATION: Left renal stone. COMPARISON: CT abdomen and pelvis 06/30/2020 TECHNIQUE: Routine imaging of left kidney was performed. FINDINGS: RIGHT KIDNEY: The right kidney has been surgically removed. LEFT KIDNEY: 10.7 x 4.9 x 4.3 cm (SAG x AP x TRV). The kidney is normal in size, contour, and echogenicity. Renal cortical thickness is normal. No calculi or focal parenchymal lesions. No hydronephrosis. There is anechoic cyst in the upper pole measuring 0.71 x 0.41 x 0.60 cm. Incidental note is small ascites. US/US renal BI IMPRESSION: Echogenic stone upper pole left kidney without caliectasis or hydronephrosis. Right nephrectomy.
--- NOTE | ~2020-06-30 | IR_ITS ---
PROCEDURE: IR INSERTION OF TUNNEL CATHETER IR US-GUIDED VENOUS ACCESS CLINICAL INFORMATION: Temporary dialysis catheter was pulled out. Needs permacath for dialysis. COMPARISON: None TECHNIQUE: Following explaining ultrasound fluoroscopy-guided placement of right permacath procedure, benefits and risk, a written consent was obtained. Preliminary ultrasound imaging was obtained in the right neck and optimal site was selected and marked. All elements of maximal sterile barrier technique followed including use of cap, mask, sterile gown, sterile gloves, a sterile full body drape and hand hygiene. The marked site was cleaned and draped in usual sterile manner with 2% chlorhexidine solution. 1% lidocaine was injected at puncture site. Under sterile ultrasound guidance, a single wall needle was advanced and right jugular vein was punctured. After obtaining venous return, a thin guidewire was advanced and needle withdrawn. A 5-Bolivian dilator was placed over the guidewire and tucked to the side. Approximately 1 gauze length from the right neck puncture, 1% lidocaine was inserted along the right anterolateral chest. A small skin incision was performed. A blind tunneler attached to permacatheter was inserted and tunneled through the subcutaneous soft tissues to the right anterior neck incision. The tunneler was then pulled through the right neck incision. At the right neck incision, the 5-Bolivian dilator was exchanged for a 10-Bolivian and a 12-Bolivian dilator and the tract dilated. A 14-Bolivian peel-away sheath with the dilator was inserted over the wire. The dilator and the guidewire were removed. Through the peel away sheath, the permacatheter was inserted and held in position as peel away sheath was removed. A single image was obtained revealing tip of permacatheter in the aortocaval junction. Absorbable sutures were placed at the right neck incision. A nonabsorbable 3-0 nylon suture was placed along the right anterolateral chest wall anchoring the catheter. Both ports of the catheter flushed with saline followed by heparin. Sterile dressing applied at the neck incision. Patient tolerated the procedure extremely well. Conscious sedation and IV nursing was utilized during the examination. FINDINGS: On preliminary ultrasound imaging, the jugular vein is widely patent. There is a tract seen from yesterday inserted temporary dialysis catheter placement. Successful fluoroscopy and ultrasound-guided placement of a 23 cm long 14-Bolivian permacatheter for dialysis. There is no immediate competitions. IR/IR cvc insert central tunnel IMPRESSION: Successful ultrasound and fluoroscopy-guided placement of tunneled right permacatheter for dialysis.
--- NOTE | ~2020-06-30 | IR_ITS ---
PROCEDURE: IR INSERTION OF TUNNEL CATHETER IR US-GUIDED VENOUS ACCESS CLINICAL INFORMATION: Temporary dialysis catheter was pulled out. Needs permacath for dialysis. COMPARISON: None TECHNIQUE: Following explaining ultrasound fluoroscopy-guided placement of right permacath procedure, benefits and risk, a written consent was obtained. Preliminary ultrasound imaging was obtained in the right neck and optimal site was selected and marked. All elements of maximal sterile barrier technique followed including use of cap, mask, sterile gown, sterile gloves, a sterile full body drape and hand hygiene. The marked site was cleaned and draped in usual sterile manner with 2% chlorhexidine solution. 1% lidocaine was injected at puncture site. Under sterile ultrasound guidance, a single wall needle was advanced and right jugular vein was punctured. After obtaining venous return, a thin guidewire was advanced and needle withdrawn. A 5-[place] Citizen dilator was placed over the guidewire and tucked to the side. Approximately 1 gauze length from the right neck puncture, 1% lidocaine was inserted along the right anterolateral chest. A small skin incision was performed. A blind tunneler attached to permacatheter was inserted and tunneled through the subcutaneous soft tissues to the right anterior neck incision. The tunneler was then pulled through the right neck incision. At the right neck incision, the 5-[place] Citizen dilator was exchanged for a 10-[place] Citizen and a 12-[place] Citizen dilator and the tract dilated. A 14-[place] Citizen peel-away sheath with the dilator was inserted over the wire. The dilator and the guidewire were removed. Through the peel away sheath, the permacatheter was inserted and held in position as peel away sheath was removed. A single image was obtained revealing tip of permacatheter in the aortocaval junction. Absorbable sutures were placed at the right neck incision. A nonabsorbable 3-0 nylon suture was placed along the right anterolateral chest wall anchoring the catheter. Both ports of the catheter flushed with saline followed by heparin. Sterile dressing applied at the neck incision. Patient tolerated the procedure extremely well. Conscious sedation and IV nursing was utilized during the examination. FINDINGS: On preliminary ultrasound imaging, the jugular vein is widely patent. There is a tract seen from yesterday inserted temporary dialysis catheter placement. Successful fluoroscopy and ultrasound-guided placement of a 23 cm long 14-[place] Citizen permacatheter for dialysis. There is no immediate competitions. IR/IR us guide venous access IMPRESSION: Successful ultrasound and fluoroscopy-guided placement of tunneled right permacatheter for dialysis.
--- NOTE | ~2020-06-30 | IR_ITS ---
PROCEDURE: IR INSERTION OF CENTRAL VENOUS CATHETER CLINICAL INFORMATION: Rising BUN and GFR. Needs temporary dialysis catheter insertion. COMPARISON: None. TECHNIQUE: Following explaining fluoroscopy and ultrasound-guided placement of a right temporary dialysis catheter procedure, benefits and risk, a written consent was obtained from the patient. Preliminary ultrasound imaging was obtained through the right neck. An optimal site was selected and marked. The area marked was cleaned and draped in usual sterile manner with 2% chlorhexidine for cutaneous antisepsis, and sterile ultrasound preparation with sterile gel and probe cover when applicable. Elements of maximal sterile barrier technique followed including use of cap, mask, sterile gown, sterile gloves, a sterile full body drape and hand hygiene. 1% lidocaine was injected at the marked site. A singlewall needle was advanced under ultrasound guidance and the right jugular vein over the clavicle was punctured. After obtaining venous return, a thin guidewire was advanced over the needle and needle withdrawn. A 5 Serbian dilator sheath was inserted. The thin guidewire was removed and a 0.35 J-wire was advanced into the IVC under fluoroscopy guidance. The tract was dilated from 5 Serbian to 12 Serbian with dilators. Subsequently, a 12 Serbian 13 cm long Mahurkar catheter was placed over the guidewire into the SVC under fluoroscopy. The guidewire was removed. Both ports of the catheter were flushed with saline followed by heparin. The catheter was anchored to the skin with 3-0 nylon sutures. Sterile dressing applied postprocedure. No IV conscious sedation was utilized. Patient tolerated procedure extremely well. FINDINGS: On preliminary ultrasound imaging, the right jugular vein is widely patent. Under ultrasound and fluoroscopy guidance, placement of a 12 Serbian Mahurkar temporary dialysis catheter was performed. There were no immediate complications. IR/IR us guide venous access IMPRESSION: Successful ultrasound and fluoroscopy-guided placement of temporary dialysis catheter. Fluoroscopy time: 0.7. Dose area product: 132.
--- NOTE | ~2020-06-30 | IR_ITS ---
PROCEDURE: IR INSERTION OF CENTRAL VENOUS CATHETER CLINICAL INFORMATION: Rising BUN and GFR. Needs temporary dialysis catheter insertion. COMPARISON: None. TECHNIQUE: Following explaining fluoroscopy and ultrasound-guided placement of a right temporary dialysis catheter procedure, benefits and risk, a written consent was obtained from the patient. Preliminary ultrasound imaging was obtained through the right neck. An optimal site was selected and marked. The area marked was cleaned and draped in usual sterile manner with 2% chlorhexidine for cutaneous antisepsis, and sterile ultrasound preparation with sterile gel and probe cover when applicable. Elements of maximal sterile barrier technique followed including use of cap, mask, sterile gown, sterile gloves, a sterile full body drape and hand hygiene. 1% lidocaine was injected at the marked site. A singlewall needle was advanced under ultrasound guidance and the right jugular vein over the clavicle was punctured. After obtaining venous return, a thin guidewire was advanced over the needle and needle withdrawn. A 5 [place] Citizen dilator sheath was inserted. The thin guidewire was removed and a 0.35 J-wire was advanced into the IVC under fluoroscopy guidance. The tract was dilated from 5 [place] Citizen to 12 [place] Citizen with dilators. Subsequently, a 12 [place] Citizen 13 cm long Mahurkar catheter was placed over the guidewire into the SVC under fluoroscopy. The guidewire was removed. Both ports of the catheter were flushed with saline followed by heparin. The catheter was anchored to the skin with 3-0 nylon sutures. Sterile dressing applied postprocedure. No IV conscious sedation was utilized. Patient tolerated procedure extremely well. FINDINGS: On preliminary ultrasound imaging, the right jugular vein is widely patent. Under ultrasound and fluoroscopy guidance, placement of a 12 [place] Citizen Mahurkar temporary dialysis catheter was performed. There were no immediate complications. IR/IR cvc insert non tunnel IMPRESSION: Successful ultrasound and fluoroscopy-guided placement of temporary dialysis catheter. Fluoroscopy time: 0.7. Dose area product: 132.
--- NOTE | ~2020-06-30 | CT_ITS ---
PROCEDURE: CT GUIDED BIOPSY, KIDNEY CLINICAL INFORMATION: Renal failure COMPARISON: Previous CT of the abdomen and pelvis June 30 and renal ultrasound 07/03/2020 TECHNIQUE: Procedure and risks and benefits including bleeding, infection and injury to the kidney were discussed with the patient's healthcare proxy his brother by telephone and informed consent was obtained. Patient was positioned in the right decubitus position. Limited images through the kidneys were performed. The left flank was prepped and draped in the usual sterile fashion. The skin and soft tissues were anesthetized with 1% lidocaine plain. Using CT guidance and a coaxial system, access to the lower pole of the left kidney was obtained. 2 18-gauge core biopsies were obtained. There is no complication. Patient did not receive conscious sedation medicine due to labile blood pressure. This CT examination was performed using dose optimization techniques as appropriate, variously including the following: *Automated exposure control *Adjustment of mA and/or kV according to patient size (this includes techniques or standardized protocols for targeted exams where dose is matched to indication/reason for exam; i.e. extremities or head) *Use of iterative reconstruction technique DLP: 217 mGy-cm FINDINGS: There is a small amount of ascites. There is a left upper pole renal stone. No hematoma is seen post left renal biopsy. CT/CT biopsy renal LT IMPRESSION: CT-guided left renal biopsy.
--- NOTE | 2020-06-30 18:09 | ECG_ITS ---
Test Reason : LOW MAGNISIUM Blood Pressure : / mmHG Vent. Rate : 082 BPM Atrial Rate : 082 BPM P-R Int : 162 ms QRS Dur : 086 ms QT Int : 442 ms P-R-T Axes : 057 060 094 degrees QTc Int : 516 ms Normal sinus rhythm Low voltage Nonspecific T wave abnormality Abnormal ECG When compared with ECG of 14-JUN-2020 02:37, No significant change was found Referred By: Juliana Fitzgerald Electronically Signed By:Ladarius Salinas
--- NOTE | 2020-06-30 18:23 | ED.NAVMDI ---
HPI - Nausea/Vomiting/Diarrhea General Chief complaint: Failure to Thrive Stated complaint: weakness Time Seen by Provider: 06/30/20 18:08 Source: patient and EMS Mode of arrival: EMS Limitations: no limitations History of Present Illness HPI Narrative: 70 y/o male with history of alcoholic cirrhosis with ascites, esophageal varices & portal vein thrombosis, DM2 with polyneuropathy, HTN, HLD, with recent admission here (06/14-06/21) due to massive upper GI bleed 05/27 [place] lesion s/p EGD x2 & paracentesis yielding 3.5L fluid on 06/18 who presents to the ED with poor PO intake, generalized weakness and diarrhea. He reports drinking only water and an Ensure over the last week. He states whenever he eats or drinks anything it goes right through me. He is vague historian. He denies BRBPR or melena. His brother told EMS that he was having coffee ground emesis but patient denies.He states his abdomen is at his baseline distention and he has no abdominal pain. Denies fever, chills, SOB, chest pain, numbness, tingling, confusion. He has been having difficulty walking due to weakness in his legs. Related Data Home Medications Medication Instructions Recorded Confirmed ascorbic acid (vitamin C) 500 mg 500 mg PO DAILY 02/19/20 06/30/20 tablet cholecalciferol (vitamin D3) 50 50 mcg PO QAM 02/19/20 06/30/20 mcg (2,000 unit) tablet ferrous sulfate 325 mg (65 mg 325 mg PO QAM 02/19/20 06/30/20 iron) tablet hydrocodone 5 mg-acetaminophen 325 1 tab PO Q8H PRN 02/19/20 06/30/20 mg tablet tamsulosin 0.4 mg capsule 0.4 mg PO BEDTIME 02/19/20 06/30/20 atorvastatin 40 mg tablet 40 mg PO BEDTIME tab 03/25/20 06/30/20 gabapentin 300 mg capsule 300 mg PO BID cap 04/28/20 06/30/20 insulin aspart U-100 [Novolog 6 unit SUBCUT TID 06/30/20 06/30/20 Flexpen U-100 Insulin] insulin glargine [Basaglar KwikPen 14 unit SUBCUT DAILY 03/08/21 03/08/21 U-100 Insulin] sucralfate 10 ml PO QIDACHS 06/30/20 06/30/20 Previous Rx's Medication Instructions Recorded empagliflozin 25 mg tablet 25 mg PO QAM #30 tab 06/08/20 bumetanide 1 mg PO DAILY #30 tab 06/21/20 nadolol 20 mg PO DAILY #30 tab 06/21/20 omeprazole 40 mg PO BID@0630,1630 #60 cap 06/21/20 spironolactone 50 mg PO DAILY@1700 #30 tab 06/21/20 Allergies Allergy/AdvReac Type Severity Reaction Status Date / Time No Known Allergies Allergy Verified 05/26/20 10:49 Review of Systems Review of Systems: Constitutional: No Fever, No Chills ENT/Mouth: No sore throat, No Rhinorrhea, No Swallowing Difficulty Cardiovascular: No Chest Pain, No SOB, No Orthopnea, No Edema Respiratory: No Cough, No Sputum, No Wheezing, No dyspnea Gastrointestinal: + Nausea, + Vomiting, + Diarrhea, No abdominal Pain, No Hematochezia, No Melena Genitourinary: No Dysuria, No Urinary Frequency, No Hematuria Musculoskeletal: No joint pain, No Myalgias Skin: No Skin Lesions, No rash Neuro: + Weakness, No Numbness, No Dizziness, No Headache Psych: No Anxiety/Panic, + Depression Heme/Lymph: No Bruising, No Lymphadenopathy Endocrine: No Polyuria, No Polydipsia PMFSH Past Medical History Attestation statement: The following information was validated with the patient. Medical History Anemia Ascites Cirrhosis Essential hypertension GERD (gastroesophageal reflux disease) Hyperlipidemia LDL goal <100 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 Type 2 diabetes mellitus with hyperglycemia Surgical History History of liver biopsy Family History Family History Father Diabetes Mother Breast cancer Diabetes Cardiovascular disease Brother Diabetes Sister Diabetes Social History Social History (Updated 06/18/20 @ 15:47 by Leda Van) Household Members: Family Housing: Unknown / Unable to assess Alcohol intake: former Smoking Status: Unknown if ever smoked Second Hand Smoke Exposure: No Advance Directives: No Advance Directives Information Provided: Yes service: No Current occupational status: retired Physical Exam Vital Signs: Vital Signs: Last Vital Signs Temp 98.6 F 06/30/20 19:32 Pulse 87 06/30/20 20:45 Resp 16 06/30/20 20:45 BP 96/54 L 06/30/20 20:45 Pulse Ox 98 06/30/20 20:45 Body Mass Index 22.6 Appearance: Alert. Chronically ill appearing, cachetic and frail Eyes: Pupils equal, round and reactive to light. ENT: Pharynx with dry mucus membranes Neck: Cachectic with supraclavicular wasting, Neck supple. CVS: Normal heart rate and rhythm. Pulses normal. Respiratory: No respiratory distress. Breath sounds normal. Abdomen: Softly distedned, tender to deep palpation throughout, small redicuible umbilical hernia. +BS x4 Rectal: diffuse erythematous, raw skin to buttocks, tender, blanchable, nontender ESTEFANI with brown stool. Skin: Skin warm and dry. Normal skin slightly jaundiced Poor skin turgor. No rashes. Extremities: No lower extremity edema. Thin, frail extremities, warm and well perfused. Neuro: Oriented X 3. Non-focal, generalized weakness, slow to respond at times. Course Course Course Narrative: 70 y/o male with history of decompensated alcoholic cirrhosis and recent massive UGIB presenting with failure to thrive at home. He is barely eating or drinking. He appears chronically ill and dehydrated on arrival. Will need to r/o infection and metabolic abnormalities. BP soft in the 90's on arrival - he is not altered but diffusely weak. Reevaluation(s) Reevaluation #1: Labs showing improvement in anemia, new thombocytosis and mild leukocytosis. Hx thrombocytopenia w/ liver disease. Concern for hemoconcerntation and severe dehydration. BP soft in 90s, likely due to dehydration, no evidence of sepsis at this time. He is AAO x3 and warm, well-perfused. Will give IVF and albumin and reassess. Reevaluation #2: BNP showing new severe acute renal failure with mild hyperkalemia. Suspect pre-renal in etiology due to not eating or drinking. Will get CT scan to r/o obstruction, place Ch and check urine electrolytes. Will give 2nd liter IVF and repeat chemistry. Dr. Griffin has been TT. Reevaluation #3: CT not showing any evidence of obstructive uropathy. Ch placed with 50cc of tea colored urine. 2nd liter IVF ordered as well as midodrine to keep MAP >65. Will discuss with Nephrology possibly adding octreotide/albumin around the clock empirically for possible hepatorenal syndome. Additional Reevaluation(s): Dr. Kirkland recommending starting D5W w/ 150 mEq bicarb @ 125 cc/hr after 2L IVF are given. Neprhology will see the patient in the morning. Hospitalist has been contacted for admission. EKG is still pending. Patient accepted by Dr. [place] Consultations Consultation #1: Nephrology - Dr. Kirkland MDM - Nausea/Vomiting/Diarrhea Lab Data Result diagrams: 06/30/20 19:08 06/30/20 19:08 Labs: Lab Results 06/30/20 06/30/20 06/30/20 Range/Units 19:08 19:08 19:08 WBC 11.8 H (4.8-10.8) X10*3/uL RBC 3.18 L (4.60-5.80) X10*6/uL Hgb 9.4 L (14.0-18.0) g/dl Hct 29.3 L (42-52) % MCV 92.1 (80-98) fL MCH 29.6 (27.0-33.0) pg MCHC 32.1 (31.0-36.0) g/dl RDW 17.4 H (11.0-16.0) % Plt Count 437 H D (160-400) X10*3/uL MPV 10.4 (9.4-12.4) fL Immature Gran % (Auto) 0.5 H (0.0-0.4) % Neut % (Auto) 84.7 H (45-73) % Lymph % (Auto) 9.0 L (20-40) % [place] % (Auto) 5.2 (2-11) % Eos % (Auto) 0.3 (0-4) % Baso % (Auto) 0.3 (0-2) % Lymph # (Auto) 1.1 L (1.2-4.9) X10*3/uL [place] # (Auto) 0.6 (0.1-1.2) X10*3/uL Eos # (Auto) 0.0 (0.0-0.4) X10*3/uL Baso # (Auto) 0.0 (0.0-0.2) X10*3/uL Abs Immat Gran (auto) 0.06 H (0.00-0.03) X10*3/uL Absolute Neuts (auto) 10.0 H (2.0-8.3) X10*3/uL Absolute Nucleated RBC 0.000 (0.0-0.012) X10*3/uL Nucleated RBC % (auto) 0.0 (0.0-0.2) /100WBC PT 14.1 H (10.8-13.0) SEC INR 1.2 H (0.9-1.1) APTT 36.1 (24.1-38.0) SEC Sodium 137 (135-145) mmol/L Potassium 5.3 H D (3.3-5.1) mmol/L Chloride 102 (96-108) mmol/L Carbon Dioxide 15 L (22-29) mmol/L Anion Gap 25 H (12-20) BUN 76 H D (9-16) mg/dL Creatinine 6.76 H* (0.5-1.4) mg/dL Estim Creat Clear Calc 9.3 Estimated GFR 8 Random Glucose 187 H D (60-115) mg/dL Lactic Acid (0.5-2.0) mmol/L Calcium 8.7 D (8.4-10.2) mg/dL Magnesium 2.7 H (1.6-2.6) mg/dL Total Bilirubin 1.5 H (0.0-1.0) mg/dL Direct Bilirubin 1.2 H (0.0-0.5) mg/dL AST 129 H (5-37) U/L ALT 41 H (0-40) U/L Alkaline Phosphatase 742 H D (39-117) U/L Ammonia (13-55) umol/L Troponin I High Sens (<3.5-35.0) ng/L B-Natriuretic Peptide (<100) pg/mL Total Protein 7.4 D (6.5-8.0) g/dL Albumin 3.3 L D (3.5-5.0) g/dL Lipase 137 H (8-78) U/L Stool Occult Blood (NEG) Ethyl Alcohol mg/dL COVID-19 ([facility]) (Negative) COVID-19 Clin Com 06/30/20 06/30/20 06/30/20 Range/Units 19:08 19:08 19:08 WBC (4.8-10.8) X10*3/uL RBC (4.60-5.80) X10*6/uL Hgb (14.0-18.0) g/dl Hct (42-52) % MCV (80-98) fL MCH (27.0-33.0) pg MCHC (31.0-36.0) g/dl RDW (11.0-16.0) % Plt Count (160-400) X10*3/uL MPV (9.4-12.4) fL Immature Gran % (Auto) (0.0-0.4) % Neut % (Auto) (45-73) % Lymph % (Auto) (20-40) % [place] % (Auto) (2-11) % Eos % (Auto) (0-4) % Baso % (Auto) (0-2) % Lymph # (Auto) (1.2-4.9) X10*3/uL [place] # (Auto) (0.1-1.2) X10*3/uL Eos # (Auto) (0.0-0.4) X10*3/uL Baso # (Auto) (0.0-0.2) X10*3/uL Abs Immat Gran (auto) (0.00-0.03) X10*3/uL Absolute Neuts (auto) (2.0-8.3) X10*3/uL Absolute Nucleated RBC (0.0-0.012) X10*3/uL Nucleated RBC % (auto) (0.0-0.2) /100WBC PT (10.8-13.0) SEC INR (0.9-1.1) APTT (24.1-38.0) SEC Sodium (135-145) mmol/L Potassium (3.3-5.1) mmol/L Chloride (96-108) mmol/L Carbon Dioxide (22-29) mmol/L Anion Gap (12-20) BUN (9-16) mg/dL Creatinine (0.5-1.4) mg/dL Estim Creat Clear Calc Estimated GFR Random Glucose (60-115) mg/dL Lactic Acid (0.5-2.0) mmol/L Calcium (8.4-10.2) mg/dL Magnesium (1.6-2.6) mg/dL Total Bilirubin (0.0-1.0) mg/dL Direct Bilirubin (0.0-0.5) mg/dL AST (5-37) U/L ALT (0-40) U/L Alkaline Phosphatase (39-117) U/L Ammonia (13-55) umol/L Troponin I High Sens 7.5 (<3.5-35.0) ng/L B-Natriuretic Peptide 20 (<100) pg/mL Total Protein (6.5-8.0) g/dL Albumin (3.5-5.0) g/dL Lipase Cancelled (8-78) U/L Stool Occult Blood (NEG) Ethyl Alcohol mg/dL COVID-19 ([facility]) Negative (Negative) COVID-19 Clin Com See Note 06/30/20 06/30/20 06/30/20 Range/Units 19:08 19:08 19:08 WBC (4.8-10.8) X10*3/uL RBC (4.60-5.80) X10*6/uL Hgb (14.0-18.0) g/dl Hct (42-52) % MCV (80-98) fL MCH (27.0-33.0) pg MCHC (31.0-36.0) g/dl RDW (11.0-16.0) % Plt Count (160-400) X10*3/uL MPV (9.4-12.4) fL Immature Gran % (Auto) (0.0-0.4) % Neut % (Auto) (45-73) % Lymph % (Auto) (20-40) % [place] % (Auto) (2-11) % Eos % (Auto) (0-4) % Baso % (Auto) (0-2) % Lymph # (Auto) (1.2-4.9) X10*3/uL [place] # (Auto) (0.1-1.2) X10*3/uL Eos # (Auto) (0.0-0.4) X10*3/uL Baso # (Auto) (0.0-0.2) X10*3/uL Abs Immat Gran (auto) (0.00-0.03) X10*3/uL Absolute Neuts (auto) (2.0-8.3) X10*3/uL Absolute Nucleated RBC (0.0-0.012) X10*3/uL Nucleated RBC % (auto) (0.0-0.2) /100WBC PT (10.8-13.0) SEC INR (0.9-1.1) APTT (24.1-38.0) SEC Sodium (135-145) mmol/L Potassium (3.3-5.1) mmol/L Chloride (96-108) mmol/L Carbon Dioxide (22-29) mmol/L Anion Gap (12-20) BUN (9-16) mg/dL Creatinine (0.5-1.4) mg/dL Estim Creat Clear Calc Estimated GFR Random Glucose (60-115) mg/dL Lactic Acid 1.7 (0.5-2.0) mmol/L Calcium (8.4-10.2) mg/dL Magnesium (1.6-2.6) mg/dL Total Bilirubin (0.0-1.0) mg/dL Direct Bilirubin (0.0-0.5) mg/dL AST (5-37) U/L ALT (0-40) U/L Alkaline Phosphatase (39-117) U/L Ammonia 29 (13-55) umol/L Troponin I High Sens (<3.5-35.0) ng/L B-Natriuretic Peptide (<100) pg/mL Total Protein (6.5-8.0) g/dL Albumin (3.5-5.0) g/dL Lipase (8-78) U/L Stool Occult Blood (NEG) Ethyl Alcohol < 10 mg/dL COVID-19 ([facility]) (Negative) COVID-19 Clin Com 06/30/20 Range/Units 19:08 WBC (4.8-10.8) X10*3/uL RBC (4.60-5.80) X10*6/uL Hgb (14.0-18.0) g/dl Hct (42-52) % MCV (80-98) fL MCH (27.0-33.0) pg MCHC (31.0-36.0) g/dl RDW (11.0-16.0) % Plt Count (160-400) X10*3/uL MPV (9.4-12.4) fL Immature Gran % (Auto) (0.0-0.4) % Neut % (Auto) (45-73) % Lymph % (Auto) (20-40) % [place] % (Auto) (2-11) % Eos % (Auto) (0-4) % Baso % (Auto) (0-2) % Lymph # (Auto) (1.2-4.9) X10*3/uL [place] # (Auto) (0.1-1.2) X10*3/uL Eos # (Auto) (0.0-0.4) X10*3/uL Baso # (Auto) (0.0-0.2) X10*3/uL Abs Immat Gran (auto) (0.00-0.03) X10*3/uL Absolute Neuts (auto) (2.0-8.3) X10*3/uL Absolute Nucleated RBC (0.0-0.012) X10*3/uL Nucleated RBC % (auto) (0.0-0.2) /100WBC PT (10.8-13.0) SEC INR (0.9-1.1) APTT (24.1-38.0) SEC Sodium (135-145) mmol/L Potassium (3.3-5.1) mmol/L Chloride (96-108) mmol/L Carbon Dioxide (22-29) mmol/L Anion Gap (12-20) BUN (9-16) mg/dL Creatinine (0.5-1.4) mg/dL Estim Creat Clear Calc Estimated GFR Random Glucose (60-115) mg/dL Lactic Acid (0.5-2.0) mmol/L Calcium (8.4-10.2) mg/dL Magnesium (1.6-2.6) mg/dL Total Bilirubin (0.0-1.0) mg/dL Direct Bilirubin (0.0-0.5) mg/dL AST (5-37) U/L ALT (0-40) U/L Alkaline Phosphatase (39-117) U/L Ammonia (13-55) umol/L Troponin I High Sens (<3.5-35.0) ng/L B-Natriuretic Peptide (<100) pg/mL Total Protein (6.5-8.0) g/dL Albumin (3.5-5.0) g/dL Lipase (8-78) U/L Stool Occult Blood POS (NEG) Ethyl Alcohol mg/dL COVID-19 ([facility]) (Negative) COVID-19 Clin Com Discharge Plan Discharge Clinical Impression: Acute dehydration, Adult failure to thrive Acute renal failure Qualifiers: Acute renal failure type: unspecified Qualified Code(s): N17.9 - Acute kidney failure, unspecified Patient Disposition: Admitted As Inpatient
[2020-06-30 18:26] VITALS: BP 91/50; PULSE 98; RESP 17; TEMP 36.6; O2SAT 97; BMI 22.6
[2020-06-30 19:15] LABS: MANUAL DIFF FLAG NO
[2020-06-30 19:16] LABS: Basophils Percent Auto 0.3 % (0-2); Eosinophils Percent Auto 0.3 % (0-4); Hematocrit 29.3 % (42-52); Hemoglobin 9.4 g/dl (14.0-18.0); Imm Gran Abs Auto 0.06 X10*3/uL (0.00-0.03); Imm Gran Pct Auto 0.5 % (0.0-0.4); Lymphocytes Absolute Auto 1.1 X10*3/uL (1.2-4.9); Mean Corpuscular HGB Conc 32.1 g/dl (31.0-36.0); Mean Corpuscular Hemoglobin 29.6 pg (27.0-33.0); Mean Corpuscular Volume 92.1 fL (80-98); Mean Platelet Volume 10.4 fL (9.4-12.4); Monocytes Absolute Auto 0.6 X10*3/uL (0.1-1.2); Monocytes Percent Auto 5.2 % (2-11); Neutrophils Percent Auto 84.7 % (45-73); Platelet Count 437 X10*3/uL (160-400); Red Blood Count 3.18 X10*6/uL (4.60-5.80); Red Cell Distribution Width 17.4 % (11.0-16.0); White Blood Count 11.8 X10*3/uL (4.8-10.8)
[2020-06-30 19:19] LABS: OBS1 POS (NEG)
[2020-06-30 19:20] LABS: OBS Int Ctl Valid YES
[2020-06-30 19:22] LABS: INTERNATIONAL NORM RATIO 1.2 (0.9-1.1); Prothrombin Time 14.1 SEC (10.8-13.0)
[2020-06-30 19:24] LABS: Partial Thromboplastin Time 36.1 SEC (24.1-38.0)
[2020-06-30] MEDS: 0.9 % Sodium Chloride 1,000 ML 999 ML IVCONT ×2 (19:26→21:19)
[2020-06-30 19:30] LABS: COVID-19 Test Negative (Negative)
[2020-06-30 19:32] VITALS: BP 93/55; PULSE 92; RESP 12; TEMP 37; O2SAT 97
[2020-06-30 19:33] LABS: Ammonia 29 umol/L (13-55)
[2020-06-30 19:37] LABS: Lactic Acid 1.7 mmol/L (0.5-2.0)
[2020-06-30 19:43] LABS: Alanine Aminotransferase 41 U/L (0-40); Albumin Level 3.3 g/dL (3.5-5.0); Alkaline Phosphatase 742 U/L (39-117); Anion Gap 25 (12-20); Aspartate Amino Transferase 129 U/L (5-37); Bilirubin Direct 1.2 mg/dL (0.0-0.5); Bilirubin Total 1.5 mg/dL (0.0-1.0); Blood Urea Nitrogen 76 mg/dL (9-16); Calcium 8.7 mg/dL (8.4-10.2); Carbon Dioxide 15 mmol/L (22-29); Chloride 102 mmol/L (96-108); Ethanol < 10 mg/dL; Glucose Random 187 mg/dL (60-115); Magnesium 2.7 mg/dL (1.6-2.6); Potassium 5.3 mmol/L (3.3-5.1); Sodium 137 mmol/L (135-145); Total Protein 7.4 g/dL (6.5-8.0)
[2020-06-30 19:45] LABS: B Type Natriuretic Peptide 20 pg/mL (<100); Troponin-I High Sensitivity 7.5 ng/L (<3.5-35.0)
--- NOTE | 2020-06-30 19:56 | PC.NURSE ---
Hypotension reported to provider. Lefr arm BP 68/44 and right arm 93/55. Patient alert.
[2020-06-30 19:59] LABS: Creatinine Clr Calc Pharmacy 9.3; Estimated Glomerular Filt Rate 8; Lipase 137 U/L (8-78)
[2020-06-30] MEDS: Albumin Human 25 % 100 ML IV (20:34)
[2020-06-30 20:45] VITALS: BP 96/54; PULSE 87; RESP 16; O2SAT 98
[2020-06-30 21:19] VITALS: BP 103/55; PULSE 87; PULSE 88; RESP 16; O2SAT 97
[2020-06-30] MEDS: Midodrine HCl 10 MG TABLET PO (21:19)
--- NOTE | 2020-06-30 21:20 | PC.NURSE ---
PT RESTING IN STRETCHER ALERT, RESPIRATIONS N/L. 2ND L OF NS UP AND RUNNING W/O, SITE INTACT. BUTTS CATH INSERTED AND DRAINING CLOUDY DK YELLOW URINE APPROX 50ML IN BUTTS BAG. PTDENIES ANY COMPLAINTS. WILL CONTINUE TO MONITOR PT. PT REMAINS ON MONITOR WITH HR 86
[2020-06-30 21:22] LABS: Sodium Urine Random < 20.0 mmol/L
[2020-06-30 21:23] LABS: Osmolality Urine 327 mosm/kg (373-1093)
--- NOTE | 2020-06-30 21:48 | PM.IMHP ---
History of Present Illness Date of Service: 06/30/20 Chief Complaint: Dehydration, diarrhea This is a 70-year-old male with past medical history of hypertension, HLD, diabetes, GERD, history of liver cirrhosis, anemia, ascites, who presents to the hospital with complaints of diarrhea since being discharged from the hospital on the . Patient reports that ever since being discharged from the hospital he started having diarrhea every 2-3 hours. As a result he was unable to keep anything down and has not been drinking or eating much. He has nausea with no vomiting, he denies having any blood in his BMs, no hematemesis, no hematochezia, no abdominal pain. No fever chills. Patient was admitted to the hospital on the 14 of June for rectal bleeding with acute blood loss anemia that required multiple blood transfusion and ICU management. Patient underwent EGD that found bleeding vessel status post hemostasis. Patient also found to have esophageal varices and bands were applied at that time. He was also treated with IV antibiotics for 5 days and started on nadolol and sucralfate. At that time he also underwent thoracentesis for significant ascites. And was started on Bumex and spironolactone by Nephrology for fluid management. He reports that his abdominal distension improved since being discharged. He CT abdomen also showed portal vein thrombosis. Patient was not started on anticoagulation due to the fact the patient presented with acute bleeding. Aspirin was also discontinued. Patient denies having any chest pain, no cough, no shortness of breath, no fever or chills. No urinary symptoms and no lower extremity edema. On arrival to ED patient hemodynamically stable Lab significant for WBC count of 11.8, hemoglobin of 9.4 stable from discharge, PT of 14, INR 1.2, VBG showing a pH of 7.24, pCO2 of 27, sodium of 138, potassium 5.0, bicarb of BUN of 71, creatinine of 6.32 (0.92 on 06/21), lactic acid of 1.7, magnesium of 2.7, total bili of 1.5, AST of 129, ALT of 41, alk-phos of 742 (chronically elevated), stool occult blood positive, COVID-19 negative, Abdominal CT shows no acute abnormality, cirrhosis of liver, abdominal ascites, nonobstructive left renal stone Patient will be admitted for further management of his TREMAYNE Past medical history as below and confirmed with patient Review of Systems Review of Systems: Yes all other systems are reviewed and are negative [facility] Medical History (Updated 07/01/20 @ 04:12 by Omar Birmingham MD) Anemia Ascites Cirrhosis Esophageal varices Essential hypertension GERD (gastroesophageal reflux disease) GI bleed Hyperlipidemia LDL goal <100 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 Type 2 diabetes mellitus with hyperglycemia Family History Father Diabetes Mother Breast cancer Diabetes Cardiovascular disease Brother Diabetes Sister Diabetes Surgical History History of liver biopsy Social History Household Members: Family Housing: Unknown / Unable to assess Alcohol intake: former Smoking Status: Never smoker Smoked in Last 30 Days: No Second Hand Smoke Exposure: No Use of substances other than those prescribed or required for medical reasons: No Currently Displaying Signs/Symptoms of Drug Intoxication Withdrawal: No Any prior treatment program specific to substance use: No Have you been hit, kicked, punched, or otherwise hurt by someone within the past year? If so, by whom?: No Do you feel safe in your current relationship?: Yes Is there a partner from a previous relationship who is making you feel unsafe now?: No Are you made to feel afraid or neglected: No Advance Directives: No Advance Directives Information Provided: Yes Do you have thoughts of harming others: None Do you have a plan to hurt others: No Plan Recently lost weight without trying: No service: No Current occupational status: retired [employer] Allergies Allergy/AdvReac Type Severity Reaction Status Date / Time No Known Allergies Allergy Verified 05/26/20 10:49 Active Medications: Current Medications Generic Name Dose Route Start Last Admin Trade Name Freq PRN Reason Stop Dose Admin Pharmacy Consult 1 each 06/30/20 18:08 Consult Rx Perform Med Rec MISCELLANE ONCE PRN Consult order Home Medications Medication Instructions Recorded Confirmed Last Taken Type ascorbic acid (vitamin C) 500 mg 500 mg PO DAILY 02/19/20 06/30/20 Unknown History tablet cholecalciferol (vitamin D3) 50 50 mcg PO QAM 02/19/20 06/30/20 Unknown History mcg (2,000 unit) tablet ferrous sulfate 325 mg (65 mg 325 mg PO QAM 02/19/20 06/30/20 Unknown History iron) tablet hydrocodone 5 mg-acetaminophen 325 1 tab PO Q8H PRN 02/19/20 06/30/20 Unknown History mg tablet tamsulosin 0.4 mg capsule 0.4 mg PO BEDTIME 02/19/20 06/30/20 Unknown History atorvastatin 40 mg tablet 40 mg PO BEDTIME tab 03/25/20 06/30/20 Unknown History gabapentin 300 mg capsule 300 mg PO BID cap 04/28/20 06/30/20 Unknown History insulin aspart U-100 [Novolog 6 unit SUBCUT TID 06/30/20 06/30/20 Unknown History Flexpen U-100 Insulin] insulin glargine [Basaglar KwikPen 14 unit SUBCUT DAILY 06/30/20 06/30/20 Unknown History U-100 Insulin] sucralfate 10 ml PO QIDACHS 06/30/20 06/30/20 Unknown History Physical Exam Vital Signs and Narrative: Vital Signs: Last Vital Signs Temp 98.6 F 06/30/20 19:32 Pulse 87 06/30/20 21:19 Resp 16 06/30/20 21:19 BP 103/55 L 06/30/20 21:19 Pulse Ox 97 06/30/20 21:19 Body Mass Index 22.6 Const: General: cooperative and no acute distress Orientation/consciousness: patient oriented x3 Eyes: General: appearance normal, both eyes and all related structures Resp: Effort & Inspection: normal respiratory effort and able to speak in complete sentences Cardio: Rate: regular rate Rhythm: regular rhythm GI: Other: Distended abdomen, nontender, no rebound, no guarding Palpation (GI): Firmness to palpation present (GI) Auscultation: normal bowel sounds Skin: General skin exam: no rashes or lesions noted Neuro: General: patient oriented x3 Cognition (Neuro): normal cognition Extrem: General: Yes normal to inspection and Yes no pedal edema Results Labs CBC and Chem 7: 06/30/20 19:08 07/01/20 00:15 Labs: Laboratory Results - last 24 hr 06/30/20 06/30/20 06/30/20 19:08 19:08 19:08 Hgb 9.4 L MCV 92.1 MCH 29.6 MCHC 32.1 RDW 17.4 H Plt Count 437 H D MPV 10.4 Immature Gran % (Auto) 0.5 H Neut % (Auto) 84.7 H Lymph % (Auto) 9.0 L Clay % (Auto) 5.2 Eos % (Auto) 0.3 Baso % (Auto) 0.3 Lymph # (Auto) 1.1 L Clay # (Auto) 0.6 Eos # (Auto) 0.0 Baso # (Auto) 0.0 Abs Immat Gran (auto) 0.06 H Absolute Neuts (auto) 10.0 H Absolute Nucleated RBC 0.000 Nucleated RBC % (auto) 0.0 PT 14.1 H INR 1.2 H APTT 36.1 Anion Gap 25 H Creatinine 6.76 H* Estim Creat Clear Calc 9.3 Estimated GFR 8 Random Glucose 187 H D Lactic Acid Calcium 8.7 D Magnesium 2.7 H Total Bilirubin 1.5 H Direct Bilirubin 1.2 H AST 129 H ALT 41 H Alkaline Phosphatase 742 H D Ammonia Troponin I High Sens B-Natriuretic Peptide Total Protein 7.4 D Albumin 3.3 L D Lipase 137 H Urine Osmolality Ur Random Sodium Urine Creatinine Stool Occult Blood Ethyl Alcohol COVID-19 ([facility]UI[facility]) COVID-[employer] 06/30/20 06/30/20 06/30/20 19:08 19:08 19:08 Hgb MCV MCH MCHC RDW Plt Count MPV Immature Gran % (Auto) Neut % (Auto) Lymph % (Auto) Clay % (Auto) Eos % (Auto) Baso % (Auto) Lymph # (Auto) Clay # (Auto) Eos # (Auto) Baso # (Auto) Abs Immat Gran (auto) Absolute Neuts (auto) Absolute Nucleated RBC Nucleated RBC % (auto) PT INR APTT Anion Gap Creatinine Estim Creat Clear Calc Estimated GFR Random Glucose Lactic Acid Calcium Magnesium Total Bilirubin Direct Bilirubin AST ALT Alkaline Phosphatase Ammonia Troponin I High Sens 7.5 B-Natriuretic Peptide 20 Total Protein Albumin Lipase Cancelled Urine Osmolality Ur Random Sodium Urine Creatinine Stool Occult Blood Ethyl Alcohol COVID-19 ([facility]) Negative COVID-[employer] Com See Note 06/30/20 06/30/20 06/30/20 19:08 19:08 19:08 Hgb MCV MCH MCHC RDW Plt Count MPV Immature Gran % (Auto) Neut % (Auto) Lymph % (Auto) Clay % (Auto) Eos % (Auto) Baso % (Auto) Lymph # (Auto) Clay # (Auto) Eos # (Auto) Baso # (Auto) Abs Immat Gran (auto) Absolute Neuts (auto) Absolute Nucleated RBC Nucleated RBC % (auto) PT INR APTT Anion Gap Creatinine Estim Creat Clear Calc Estimated GFR Random Glucose Lactic Acid 1.7 Calcium Magnesium Total Bilirubin Direct Bilirubin AST ALT Alkaline Phosphatase Ammonia 29 Troponin I High Sens B-Natriuretic Peptide Total Protein Albumin Lipase Urine Osmolality Ur Random Sodium Urine Creatinine Stool Occult Blood Ethyl Alcohol < 10 COVID-19 ([facility]) COVID-19 [employer] Com 06/30/20 06/30/20 06/30/20 19:08 20:41 20:41 Hgb MCV MCH MCHC RDW Plt Count MPV Immature Gran % (Auto) Neut % (Auto) Lymph % (Auto) Clay % (Auto) Eos % (Auto) Baso % (Auto) Lymph # (Auto) Clay # (Auto) Eos # (Auto) Baso # (Auto) Abs Immat Gran (auto) Absolute Neuts (auto) Absolute Nucleated RBC Nucleated RBC % (auto) PT INR APTT Anion Gap Creatinine Estim Creat Clear Calc Estimated GFR Random Glucose Lactic Acid Calcium Magnesium Total Bilirubin Direct Bilirubin AST ALT Alkaline Phosphatase Ammonia Troponin I High Sens B-Natriuretic Peptide Total Protein Albumin Lipase Urine Osmolality 327 L Ur Random Sodium < 20.0 Urine Creatinine 513.53 Stool Occult Blood POS Ethyl Alcohol COVID-19 ([facility]) COVID-19 Clin Com Imaging Radiologist's Impressions: Impressions Chest X-Ray 06/30/20 18:08 IMPRESSION: Unremarkable examination. Abdomen/Pelvis CT 06/30/20 20:05 IMPRESSION: 1. No acute abnormality. 2. Cirrhosis of liver. Abdominal ascites. 3. Nonobstructive left renal stone. Assessment and Plan (1) Acute renal failure: Qualifiers: Acute renal failure type: unspecified Qualified Code(s): N17.9 - Acute kidney failure, unspecified Status: Acute (2) Acute dehydration: Status: Acute (3) GI bleed: Status: Acute (4) Diarrhea: Status: Acute (5) Metabolic acidosis: Status: Acute This is a 70-year-old male past medical history as above who presents to the hospital after recent discharge complaining of diarrhea as well as poor oral intake found to have severe TREMAYNE # TREMAYNE - secondary to diarrhea as well as poor oral intake - urine studies to calculate FENA - nephrology recommended 2 L of NS followed by 125 cc an hour of D5 water with 150 bicarb - will hold nephrotoxic medications such as Bumex, spironolactone, and tamsulosin - follow BMP # diarrhea - afebrile, leukocytosis most likely secondary to hemoconcentration - possibly C diff in the setting of recent antibiotic use in the most recent hospitalization - will send for C diff, stool cultures - treat with IV fluids at this time # GI bleed - patient was recently admitted to the hospital extensively explained in HPI - EGD at that time showed esophageal varices as well as a bleeding ulcer that was treated - currently has positive occult stool - although patient denies having any bloody diarrhea, hematemesis or hematochezia and no melena - will continue his omeprazole 40 b.i.d. - will consult GI as patient was supposed to have a follow-up EGD in 2-4 weeks as outpatient - hemoglobin stable at this time, will transfuse with threshold of hemoglobin above 7 # metabolic acidosis - most likely secondary to the diarrhea, and renal failure - receiving bicarb in fluids - follow BMP # diabetes - low-dose sliding scale insulin - hold oral meds - POC q.i.d. a.c. - diabetic diet # hypertension - on the softer side but maintaining a map above 65 - will hold his blood pressure medications at this time given his hypotension # esophageal varices - continue nadolol DVT prophylaxis: Mechanical SCDs
[2020-07-01] VITALS (14 sets, daily range): BP systolic 75–103; BP diastolic 38–53; PULSE 58–85; RESP 15–19; TEMP 36.2–36.9; O2SAT 95–99; BMI 22.6
[2020-07-01 00:29] LABS: Venous Blood Gas Refer to POC result
[2020-07-01 00:29] LABS: VBG Base Excess -13.9 mmol/L; VBG HCO3 11 mmol/L (22-26); VBG pCO2 27 mmHg; VBG pH 7.24 (7.32-7.43); VBG pO2 206 mmHg
[2020-07-01 00:51] LABS: Anion Gap 23 (12-20); Blood Urea Nitrogen 71 mg/dL (9-16); Calcium 8.1 mg/dL (8.4-10.2); Carbon Dioxide 13 mmol/L (22-29); Chloride 107 mmol/L (96-108); Estimated Glomerular Filt Rate 9; Glucose Random 135 mg/dL (60-115); Sodium 138 mmol/L (135-145)
--- NOTE | 2020-07-01 01:34 | PC.NURSE ---
report given to floor. Pt to floor on monitor and left ED in NAD.
[2020-07-01] MEDS: Sodium Bicarbonate 8.4% 150 MEQ in Dextrose 5 % 850 ML 125 MEQ IV (03:27)
[2020-07-01] MEDS: Heparin Sodium,Porcine 5,000 UNIT/ML VIAL 5000 UNIT SUBCUT (03:48)
[2020-07-01 04:21] LABS: MANUAL DIFF FLAG NO
[2020-07-01 04:22] LABS: Basophils Percent Auto 0.1 % (0-2); Eosinophils Absolute Auto 0.1 X10*3/uL (0.0-0.4); Eosinophils Percent Auto 0.4 % (0-4); Hematocrit 27.1 % (42-52); Hemoglobin 8.6 g/dl (14.0-18.0); Imm Gran Abs Auto 0.06 X10*3/uL (0.00-0.03); Imm Gran Pct Auto 0.5 % (0.0-0.4); Lymphocytes Absolute Auto 0.9 X10*3/uL (1.2-4.9); Lymphocytes Percent Auto 7.6 % (20-40); Mean Corpuscular HGB Conc 31.7 g/dl (31.0-36.0); Mean Corpuscular Hemoglobin 29.6 pg (27.0-33.0); Mean Corpuscular Volume 93.1 fL (80-98); Mean Platelet Volume 10.3 fL (9.4-12.4); Monocytes Absolute Auto 0.6 X10*3/uL (0.1-1.2); Monocytes Percent Auto 5.1 % (2-11); Neutrophils Absolute Auto 10.1 X10*3/uL (2.0-8.3); Neutrophils Percent Auto 86.3 % (45-73); Platelet Count 362 X10*3/uL (160-400); Red Blood Count 2.91 X10*6/uL (4.60-5.80); Red Cell Distribution Width 17.5 % (11.0-16.0); White Blood Count 11.7 X10*3/uL (4.8-10.8)
[2020-07-01 04:50] LABS: Blood Urea Nitrogen 73 mg/dL (9-16); Glucose Random 134 mg/dL (60-115)
[2020-07-01 04:51] LABS: Anion Gap 23 (12-20); Carbon Dioxide 13 mmol/L (22-29); Chloride 107 mmol/L (96-108); Creatinine Clr Calc Pharmacy 10.3; Estimated Glomerular Filt Rate 9; Potassium 4.6 mmol/L (3.3-5.1); Sodium 138 mmol/L (135-145)
[2020-07-01] MEDS: Omeprazole 40 MG CAPSULE.DR PO ×2 (06:28→16:13)
[2020-07-01 08:16] LABS: Glucose, Whole Blood 149 mg/dL (60-115)
[2020-07-01] MEDS: Ascorbic Acid 500 MG TABLET PO (08:49)
[2020-07-01] MEDS: Sucralfate Oral Suspension 1 GM/10 ML ORAL.SUSP PO ×4 (08:49→19:47)
[2020-07-01] MEDS: nadoloL 20 MG TABLET PO (08:49)
[2020-07-01] MEDS: Cholecalciferol (Vitamin D3) 25 MCG TABLET 50 MCG PO (08:49)
[2020-07-01] MEDS: Gabapentin 300 MG CAPSULE PO (08:49)
[2020-07-01 09:38] LABS: CDIFF Ag Negative (Negative); CDIFF Internal ctrl Dots and bkg OK (V); CDiff Toxin Negative (Negative)
--- NOTE | 2020-07-01 10:56 | MHC.CM.PN ---
NURSE WIRELESS MANAGER NOTE ELECTRONIC MEDICAL RECORD REVIEWED ALONG WITH CASE DISCUSSED WITH STAFF NURSE AND ON MULTIPLE DISCIPLINARY ROUNDS MET WITH PATIENT MEDICARE IMM EXPLAINED AND GIVEN TO HIM, HE REPORTED THAT HE HAS HEALTH CARE PROXY HIS MOTHER AND BROTHER HE HAS NO VNA OR DME SERVICES IN THE HOME, PATIENT NOTES HE USES A CANE FOR AMBULATION AND AT TIMES NEEDS ASSISTANCE WITH DRESSING OR SUPERVISION FOR SHOWERING, HE REPORTED HE CHECKS HIS OWN POC AND SELF ADMINISTER SOME BLOOD. HIS MEDICATIONS. SINCE BEING DISCHARGED FROM THIS HOSPITAL 06/21/20 HE HAS BEEN HAVING DIARRHEA AND DISCHARGED PLAN HOME WITH NO SERVICES VS HME WITH NEW REFERRAL TO THE [facility] FOR RN/HOME PT TRANSPORTATION FAMILY PCP AT THE [facility]
[2020-07-01 11:27] LABS: Glucose, Whole Blood 138 mg/dL (60-115)
[2020-07-01] MEDS: Albumin Human 25 % 100 ML IV ×3 (12:09→23:26)
[2020-07-01] MEDS: Midodrine HCl 5 MG TABLET PO ×2 (12:13→16:13)
--- NOTE | 2020-07-01 12:19 | P.PNIM_ITS ---
Subjective Subjective Date of Service: 07/01/20 Interval History: seen and examined this AM no specific complaints denies abdominal pain ROS General - no fevers or chills Cardiovascular - no chest pain Respiratory - no shortness of breath or cough Abdominal- no abdominal pain, nausea, vomiting, diarrhea Physical Exam Vital Signs: Vital Signs: Last Vital Signs Temp 97.3 F 07/01/20 11:12 Pulse 64 07/01/20 11:12 Resp 16 07/01/20 11:12 BP 88/40 L 07/01/20 11:34 Pulse Ox 96 07/01/20 11:12 Body Mass Index 22.6 Const: General: cooperative and no acute distress Orientation/consciousness: patient oriented x3 Eyes: General: appearance normal, both eyes and all related structures Resp: Effort & Inspection: normal respiratory effort and able to speak in complete sentences Cardio: Rate: regular rate Rhythm: regular rhythm GI: Other: Distended abdomen, nontender, no rebound, no guarding Palpation (GI): Firmness to palpation present (GI) Auscultation: normal bowel sounds Skin: General skin exam: no rashes or lesions noted Neuro: General: patient oriented x3 Cognition (Neuro): normal cognition Extrem: General: Yes normal to inspection and Yes no pedal edema Objective Data Current Medications Generic Name Dose Route Start Last Admin Trade Name Freq PRN Reason Stop Dose Admin Hydrocodone Bitart/Acetaminophen 1 tab 07/01/20 02:11 Hydrocodone Bit/Acetam 5/325 Tablet PO Q8H PRN pain Ascorbic Acid 500 mg 07/01/20 09:00 07/01/20 08:49 Ascorbic Acid 500 Mg Tablet PO 500 mg DAILY ROJAS Administration Atorvastatin Calcium 40 mg 07/01/20 21:00 Atorvastatin Calcium 40 Mg Tablet PO BEDTIME ROJAS Gabapentin 300 mg 07/01/20 09:00 07/01/20 08:49 Gabapentin 300 Mg Capsule PO 300 mg BID ROJAS Administration Sodium Bicarbonate 150 meq/ 1,000 mls @ 125 mls/hr 07/01/20 02:11 07/01/20 09:55 Dextrose IV Not Given .Q8H ROJAS Albumin Human 100 mls @ 100 mls/hr 07/01/20 12:00 07/01/20 12:09 Kedbumin 25 % IV 07/02/20 06:59 100 mls/hr Q6H ROJAS Administration Sodium Bicarbonate 150 meq/ 1,000 mls @ 250 mls/hr 07/01/20 12:30 Dextrose IV 07/01/20 16:29 .Q4H [facility] Insulin Glargine 14 unit 07/01/20 09:00 07/01/20 08:46 Insulin Glargine,Hum.Rec.Anlog 100 Unit/Ml 10 Ml Vial SUBCUT Not Given DAILY [facility] Insulin Human Lispro 6 unit 07/01/20 08:00 07/01/20 12:06 Insulin Lispro 100 Unit/Ml 3 Ml Vial SUBCUT Not Given TIDWM [facility] Insulin Human Lispro 0 unit 07/01/20 07:30 07/01/20 11:38 Insulin Lispro 100 Unit/Ml 3 Ml Vial SUBCUT Not Given QIDACHS [facility] Protocol Midodrine 5 mg 07/01/20 15:00 07/01/20 12:13 Midodrine Hcl 5 Mg Tablet PO 5 mg TID [facility] Administration Omeprazole 40 mg 07/01/20 06:30 07/01/20 06:28 Omeprazole 40 Mg Capsule. PO 40 mg BID@0630,1630 [facility] Administration Ondansetron HCl 4 mg 07/01/20 02:11 Ondansetron Hcl 4 Mg/2 Ml Vial IVPUSH Q8H PRN Nausea and Vomiting Pharmacy Consult 1 each 06/30/20 18:08 Consult Rx Perform Med Rec MISCELLANE ONCE PRN Consult order Sodium Chloride 3 ml 07/01/20 02:11 07/01/20 08:18 0.9 % Sodium Chloride Flush 3 Ml Syringe IVFLUSH Not Given QSHIFT [facility] Sucralfate 1 gm 07/01/20 07:30 07/01/20 12:13 Sucralfate Oral Suspension 1 Gm/10 Ml Oral.Susp PO 1 gm QIDACHS [facility] Administration Vitamin D 50 mcg 07/01/20 09:00 07/01/20 08:49 Cholecalciferol (Vitamin D3) 25 Mcg Tablet PO 50 mcg DAILY [facility] Administration Labs CBC & Chem 7: 07/01/20 04:14 07/01/20 04:14 Assessment and Plan (1) Acute renal failure: Status: Acute (2) Acute dehydration: Status: Acute (3) GI bleed: Status: Acute (4) Diarrhea: Status: Acute (5) Metabolic acidosis: Status: Acute Assessment and Plan: This is a 70-year-old male past medical history as above who presents to the hospital after recent discharge complaining of diarrhea as well as poor oral intake found to have severe TREMAYNE 1. Acute Kidney Injury suspect pre-renal given his history. clnically appears volume depleted possible hepatorenal syndrome given his known cirrhosis d/w nephrology -- give 1L bolus @ 250 cc/hr; increase bicarb drip to 150 cc/hr and start midodrine 2. Diarrhea non since arrival stool studies negative so far 3. Cirrhosis / asictes (cause of cirrhosis unclear -- pt reports heavy drinking but stopped years ago, Hep C positive but viral load neg) may need eventual tap, clinically no evidence of SPB, but will start empiric rocephin hold diuretics 4. DM diabetic, low Na, low K diet cover with sliding scale, hold lantus 5. Recent Gi bleed h/h stable continue PPI nadolol held due to low BP -- will restart if bp allows Full Code DVT pptx, Mechanical due to previous life threatening GI bleed
[2020-07-01 12:22] LABS: Glucose Urine UA NEG (NEG); Leukocyte Esterase Urine TRACE (NEG); Nitrite Urine NEG (NEG); Specific Gravity - Urine >= 1.030 (1.005-1.025); UACC Culture Trigger YES; Urine Blood 3+ (NEG); Urine Ketones 5 MG/DL (NEG); Urine Protein 2+ MG/DL (NEG-TRACE)
[2020-07-01 12:23] LABS: Appearance Urine CLOUDY; Color Urine DARK YELLOW
[2020-07-01 12:53] LABS: Amorphous Sediment Urine 1+ /LPF; Bacteria Urine 1+ /LPF; RBC Urine 30-49 /HPF (0); Squamous Epithelial Cell Urine TRACE /LPF; WBC Urine 0-2 /HPF (0-4)
[2020-07-01 13:05] LABS: Amphetamine Screen Urine Not Detected (Not Detect); Barbiturates, Urine Not Detected (Not Detect); Benzodiazepines Screen Urine Not Detected (Not Detect); Cannabinoid Screen Urine Not Detected (Not Detect); Cocaine Screen Urine Not Detected (Not Detect); Opiate Screen Urine Not Detected (Not Detect); Phencyclidine Screen Urine Not Detected (Not Detect)
[2020-07-01] MEDS: cefTRIAXone sodium 1 GM in 0.9 % Sodium Chloride 50 ML IV (13:18)
--- NOTE | 2020-07-01 13:45 | P.CNGI_ITS ---
History of Present Illness Data of Consult Service Date: 07/01/20 Requesting physician: Omar Birmingham Primary Care Provider: Unknown Physician HPI Reason for consult: failure to thrive 70-year-old male with past medical history of hypertension, HLD, diabetes, GERD, history of liver cirrhosis with portal vein thrombus, anemia, ascites, who I m asked to see for failure to thrive in setting of recent hypovolemic shock and brisk GI bleeding. He came with c/o diarrhea associated with nausea, with poor appetite and failure to thrive. He denies having any blood in his BMs, no hematemesis, no hematochezia, no abdominal pain. No fever chills. his abdomen is slightly distended but he denies any discomfort. Patient denies having any chest pain, no cough, no shortness of breath, no fever or chills. No urinary symptoms and no lower extremity edema. His labs revealed acute renal failure, prob pre renal from diuretics, GI losses and poor PO intake. c diff was checked and was negative. He has been commenced on rocephin in case of SBP contributing to his renal failure, and also on albumin and midodrine. Of note he was admitted to the hospital on the 14 of June with acute blood loss anemia that required multiple blood transfusion. Patient underwent EGD with actively bleeding dieulafoy s/p clipping. Patient also found to have esophageal varices and bands were applied at that time. He was also treated with IV antibiotics for 5 days and started on nadolol and sucralfate. At that time he also underwent therapeutic paracentesis for symptomatic ascites. Review of Systems Review of Systems: Constitutional: No Fever, No Chills ENT/Mouth: No sore throat, No Rhinorrhea, No Swallowing Difficulty Cardiovascular: No Chest Pain, No SOB, No Orthopnea, No Edema Respiratory: No Cough, No Sputum, No Wheezing, No dyspnea Gastrointestinal: + Nausea, + Vomiting, + Diarrhea, No abdominal Pain, No Hematochezia, No Melena Genitourinary: No Dysuria, No Urinary Frequency, No Hematuria Musculoskeletal: No joint pain, No Myalgias Skin: No Skin Lesions, No rash Neuro: + Weakness, No Numbness, No Dizziness, No Headache Psych: No Anxiety/Panic, + Depression Heme/Lymph: No Bruising, No Lymphadenopathy Endocrine: No Polyuria, No Polydipsia Yes all other systems are reviewed and are negative [facility] Past Medical History Medical History (Updated 07/01/20 @ 22:19 by Galina Brody MD) Anemia Ascites Cirrhosis Esophageal varices Essential hypertension GERD (gastroesophageal reflux disease) GI bleed Hyperlipidemia LDL goal <100 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 Type 2 diabetes mellitus with hyperglycemia Family History Family History Father Diabetes Mother Breast cancer Diabetes Cardiovascular disease Brother Diabetes Sister Diabetes Surgical History Surgical History History of liver biopsy Social History Social History Household Members: Family Housing: Unknown / Unable to assess Alcohol intake: former Smoking Status: Never smoker Smoked in Last 30 Days: No Second Hand Smoke Exposure: No Use of substances other than those prescribed or required for medical reasons: No Currently Displaying Signs/Symptoms of Drug Intoxication Withdrawal: No Any prior treatment program specific to substance use: No Have you been hit, kicked, punched, or otherwise hurt by someone within the past year? If so, by whom?: No Do you feel safe in your current relationship?: Yes Is there a partner from a previous relationship who is making you feel unsafe now?: No Are you made to feel afraid or neglected: No Advance Directives: No Advance Directives Information Provided: Yes Do you have thoughts of harming others: None Do you have a plan to hurt others: No Plan Recently lost weight without trying: No service: No Current occupational status: retired [employer] Allergies Allergy/AdvReac Type Severity Reaction Status Date / Time No Known Allergies Allergy Verified 05/26/20 10:49 Active Medications: Current Medications Generic Name Dose Route Start Last Admin Trade Name Freq PRN Reason Stop Dose Admin Hydrocodone Bitart/Acetaminophen 1 tab 07/01/20 02:11 Hydrocodone Bit/Acetam 5/325 Tablet PO Q8H PRN pain Ascorbic Acid 500 mg 07/01/20 09:00 07/01/20 08:49 Ascorbic Acid 500 Mg Tablet PO 500 mg DAILY ROJAS Administration Atorvastatin Calcium 40 mg 07/01/20 21:00 Atorvastatin Calcium 40 Mg Tablet PO BEDTIME ROJAS Sodium Bicarbonate 150 meq/ 1,000 mls @ 150 mls/hr 07/01/20 02:11 07/01/20 12:32 Dextrose IV Infused .Q6H40M ROJAS Infusion Albumin Human 100 mls @ 100 mls/hr 07/01/20 12:00 07/01/20 13:31 Kedbumin 25 % IV 07/02/20 06:59 Infused Q6H ROJAS Infusion Sodium Bicarbonate 150 meq/ 1,000 mls @ 250 mls/hr 07/01/20 12:30 Dextrose IV 07/01/20 16:29 .Q4H ROJAS Ceftriaxone Sodium 1 gm/ 50 mls @ 100 mls/hr 07/01/20 12:45 07/01/20 13:18 Sodium Chloride IV 100 mls/hr Q24H [facility] Administration Insulin Human Lispro 0 unit 07/01/20 07:30 07/01/20 11:38 Insulin Lispro 100 Unit/Ml 3 Ml Vial SUBCUT Not Given QIDASSM [facility] Protocol Midodrine 5 mg 07/01/20 15:00 07/01/20 12:13 Midodrine Hcl 5 Mg Tablet PO 5 mg TID [facility] Administration Omeprazole 40 mg 07/01/20 06:30 07/01/20 06:28 Omeprazole 40 Mg Capsule.Dr PO 40 mg BID@0630,1630 [facility] Administration Ondansetron HCl 4 mg 07/01/20 02:11 Ondansetron Hcl 4 Mg/2 Ml Vial IVPUSH Q8H PRN Nausea and Vomiting Pharmacy Consult 1 each 06/30/20 18:08 Consult Rx Perform Med Rec MISCELLANE ONCE PRN Consult order Sodium Chloride 3 ml 07/01/20 02:11 07/01/20 08:18 0.9 % Sodium Chloride Flush 3 Ml Syringe IVFLUSH Not Given QSHIFT [facility] Sucralfate 1 gm 07/01/20 07:30 07/01/20 12:13 Sucralfate Oral Suspension 1 Gm/10 Ml Oral.Susp PO 1 gm QIDACHS [facility] Administration Vitamin D 50 mcg 07/01/20 09:00 07/01/20 08:49 Cholecalciferol (Vitamin D3) 25 Mcg Tablet PO 50 mcg DAILY [facility] Administration Home Medications Medication Instructions Recorded Confirmed Last Taken Type ascorbic acid (vitamin C) 500 mg 500 mg PO DAILY 02/19/20 06/30/20 Unknown History tablet cholecalciferol (vitamin D3) 50 50 mcg PO QAM 02/19/20 06/30/20 Unknown History mcg (2,000 unit) tablet ferrous sulfate 325 mg (65 mg 325 mg PO QAM 02/19/20 06/30/20 Unknown History iron) tablet hydrocodone 5 mg-acetaminophen 325 1 tab PO Q8H PRN 02/19/20 06/30/20 Unknown History mg tablet tamsulosin 0.4 mg capsule 0.4 mg PO BEDTIME 02/19/20 06/30/20 Unknown History atorvastatin 40 mg tablet 40 mg PO BEDTIME tab 03/25/20 06/30/20 Unknown History gabapentin 300 mg capsule 300 mg PO BID cap 04/28/20 06/30/20 Unknown History insulin aspart U-100 [Novolog 6 unit SUBCUT TID 06/30/20 06/30/20 Unknown History Flexpen U-100 Insulin] insulin glargine [Basaglar KwikPen 14 unit SUBCUT DAILY 06/30/20 06/30/20 Unknown History U-100 Insulin] sucralfate 10 ml PO QIDACHS 06/30/20 06/30/20 Unknown History Physical Exam Vital Signs: Vital Signs: Last Vital Signs Temp 97.3 F 07/01/20 11:12 Pulse 64 07/01/20 11:12 Resp 16 07/01/20 11:12 BP 89/48 L 07/01/20 13:29 Pulse Ox 96 07/01/20 11:12 Body Mass Index 22.6 Const: General: cooperative and no acute distress Orientation/consciousness: patient oriented x3 Eyes: General: appearance normal, both eyes and all related structures Resp: Effort & Inspection: normal respiratory effort and able to speak in complete sentences Cardio: Rate: regular rate Rhythm: regular rhythm GI: Other: Distended abdomen, nontender, no rebound, no guarding Palpation (GI): Firmness to palpation present (GI) Auscultation: normal bowel sounds Skin: General skin exam: no rashes or lesions noted Neuro: General: patient oriented x3 Cognition (Neuro): normal cognition Extrem: General: Yes normal to inspection and Yes no pedal edema Results Labs CBC & Chem 7: 07/01/20 04:14 07/01/20 16:18 Labs: Short CBC 06/30/20 07/01/20 Range/Units 19:08 04:14 WBC 11.8 H 11.7 H (4.8-10.8) X10*3/uL Hgb 9.4 L 8.6 L (14.0-18.0) g/dl Hct 29.3 L 27.1 L (42-52) % Plt Count 437 H D 362 (160-400) X10*3/uL BMP 06/30/20 07/01/20 07/01/20 19:08 00:15 04:14 Sodium 137 138 138 Potassium 5.3 H D 5.0 4.6 Chloride 102 107 107 Carbon Dioxide 15 L 13 L 13 L BUN 76 H D 71 H 73 H Creatinine 6.76 H* 6.32 H* 6.11 H* Calcium 8.7 D 8.1 L D 8.0 L Liver Function 06/30/20 Range/Units 19:08 Total Bilirubin 1.5 H (0.0-1.0) mg/dL Direct Bilirubin 1.2 H (0.0-0.5) mg/dL AST 129 H (5-37) U/L ALT 41 H (0-40) U/L Alkaline Phosphatase 742 H D (39-117) U/L Albumin 3.3 L D (3.5-5.0) g/dL Urine 07/01/20 Range/Units 11:45 Urine Color DARK YELLOW Urine Appearance CLOUDY Urine pH 5.0 (5.0-8.0) Ur Specific Elton >= 1.030 H (1.005-1.025) Urine Protein 2+ H (NEG-TRACE) MG/DL Urine Glucose (UA) NEG (NEG) MG/DL Assessment and Plan (1) Ascites: Status: Acute (2) Acute renal failure: Qualifiers: Acute renal failure type: unspecified Qualified Code(s): N17.9 - Acute kidney failure, unspecified Status: Acute (3) Cirrhosis: Status: Inactive 1/ Acute renal failure in setting of recent hypovolemic shock with cirrhosis, with subsequent diarrhea and fluid losses as well as diuretic usage. Suspect this is pre renal failure or ATN and not hepato renal syndrome, Fena <1% albeit he had been on diuretics, Fe urea more accurate in this setting. Anyhow agree with holding diuretics and vol replacment with 25% albumin as well as midodrine. Would add octreotide as well, hold beta laina and BP meds, avoid nephrotoxins. There is no evidence of acute blood loss anemia at this time. 2/ Diarrheal, would confirm this with monitoring of stool o/p, avoid laxative for the meantime, although c diff toxin was neg this still remains a culprit IMHO and a course of vancomycin is not unreasonable. 3/ Given hx o PVT I do wonder about an underlying HCC, once more stable recommend MRI liver protocol Prognosis--guarded
[2020-07-01] MEDS: Sodium Bicarbonate 8.4% 150 MEQ in Dextrose 5 % 850 ML 250 MEQ IV (14:02)
--- NOTE | 2020-07-01 14:06 | MHC.CLN ---
RE: CONSULT PT IS MALNOURISHED- SEVERE MALNUTRITION IN THE CONTEXT OF ACUTE ILLNESS RECOMMEND ENSURE BID TO INCREASE KCALS (PT REQUESTING S/B AND RULA FLAVORS) SEE ALSO CLINICAL NUTRITION ASSESSMENT
--- NOTE | 2020-07-01 14:17 | PC.NURSE ---
BP AT 1112 86/45MANUALLY PT ALSO NOTED TO HAVE 50MLS OF JARRED URINE NOTED FROM 7AM - 11AM . MD MADE AWARE AND AT BEDSIDE TO SEE PT . PT NOTED TO HAVE LIQUID DARK BROWN BM . NEW ORDERS FOR PROAMATINE , SODIUM BICARB INCREASED TO 250 MLS HR, IV CEFTRIAXONE . BP AT 1329 89/48 MANUALLY . PT APPEARS COMFORTABLE .PT ENCOURAGED TO DRINK PO FLUIDS . 1400 50MLS NOTED IN BUTTS CATH MAKING TOTAL OUTPUT OF 100MLS FOR 7AM-1500 .
--- NOTE | 2020-07-01 15:09 | P.CONNP_ITS ---
History of Present Illness Chief Complaint Chief complaint: TREMAYNE Review of Systems Review of Systems Constitutional: No Fever, No Chills ENT/Mouth: No sore throat, No Rhinorrhea, No Swallowing Difficulty Cardiovascular: No Chest Pain, No SOB, No Orthopnea, No Edema Respiratory: No Cough, No Sputum, No Wheezing, No dyspnea Gastrointestinal: + Nausea, + Vomiting, + Diarrhea, No abdominal Pain, No Hematochezia, No Melena Genitourinary: No Dysuria, No Urinary Frequency, No Hematuria Musculoskeletal: No joint pain, No Myalgias Skin: No Skin Lesions, No rash Neuro: + Weakness, No Numbness, No Dizziness, No Headache Psych: No Anxiety/Panic, + Depression Heme/Lymph: No Bruising, No Lymphadenopathy Endocrine: No Polyuria, No Polydipsia Yes all other systems are reviewed and are negative [facility] Past Medical History Medical History (Updated 07/01/20 @ 04:12 by Omar Birmingham MD) Anemia Ascites Cirrhosis Esophageal varices Essential hypertension GERD (gastroesophageal reflux disease) GI bleed Hyperlipidemia LDL goal <100 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 Type 2 diabetes mellitus with hyperglycemia Family History Family History Father Diabetes Mother Breast cancer Diabetes Cardiovascular disease Brother Diabetes Sister Diabetes Surgical History Surgical History History of liver biopsy Social History Social History Household Members: Family Housing: Unknown / Unable to assess Alcohol intake: former Smoking Status: Never smoker Smoked in Last 30 Days: No Second Hand Smoke Exposure: No Use of substances other than those prescribed or required for medical reasons: No Currently Displaying Signs/Symptoms of Drug Intoxication Withdrawal: No Any prior treatment program specific to substance use: No Have you been hit, kicked, punched, or otherwise hurt by someone within the past year? If so, by whom?: No Do you feel safe in your current relationship?: Yes Is there a partner from a previous relationship who is making you feel unsafe now?: No Are you made to feel afraid or neglected: No Advance Directives: No Advance Directives Information Provided: Yes Do you have thoughts of harming others: None Do you have a plan to hurt others: No Plan Recently lost weight without trying: No service: No Current occupational status: retired Meds Allergies Allergy/AdvReac Type Severity Reaction Status Date / Time No Known Allergies Allergy Verified 05/26/20 10:49 Active Medications: Current Medications Generic Name Dose Route Start Last Admin Trade Name Freq PRN Reason Stop Dose Admin Hydrocodone Bitart/Acetaminophen 1 tab 07/01/20 02:11 Hydrocodone Bit/Acetam 5/325 Tablet PO Q8H PRN pain Ascorbic Acid 500 mg 07/01/20 09:00 07/01/20 08:49 Ascorbic Acid 500 Mg Tablet PO 500 mg DAILY ROJAS Administration Atorvastatin Calcium 40 mg 07/01/20 21:00 Atorvastatin Calcium 40 Mg Tablet PO BEDTIME ROJAS Sodium Bicarbonate 150 meq/ 1,000 mls @ 150 mls/hr 07/01/20 02:11 07/01/20 12:32 Dextrose IV Infused .Q6H40M ROJAS Infusion Albumin Human 100 mls @ 100 mls/hr 07/01/20 12:00 07/01/20 13:31 Kedbumin 25 % IV 07/02/20 06:59 Infused Q6H ROJAS Infusion Sodium Bicarbonate 150 meq/ 1,000 mls @ 250 mls/hr 07/01/20 12:30 07/01/20 14:02 Dextrose IV 07/01/20 16:29 250 mls/hr .Q4H ROJAS Administration Ceftriaxone Sodium 1 gm/ 50 mls @ 100 mls/hr 07/01/20 12:45 07/01/20 13:53 Sodium Chloride IV Infused Q24H ROJAS Infusion Insulin Human Lispro 0 unit 07/01/20 07:30 07/01/20 11:38 Insulin Lispro 100 Unit/Ml 3 Ml Vial SUBCUT Not Given QIDACHS [facility] Protocol Midodrine 5 mg 07/01/20 15:00 07/01/20 12:13 Midodrine Hcl 5 Mg Tablet PO 5 mg TID ROJAS Administration Omeprazole 40 mg 07/01/20 06:30 07/01/20 06:28 Omeprazole 40 Mg Capsule. PO 40 mg BID@0630,1630 ROJAS Administration Ondansetron HCl 4 mg 07/01/20 02:11 Ondansetron Hcl 4 Mg/2 Ml Vial IVPUSH Q8H PRN Nausea and Vomiting Pharmacy Consult 1 each 06/30/20 18:08 Consult Rx Perform Med Rec MISCELLANE ONCE PRN Consult order Sodium Chloride 3 ml 07/01/20 02:11 07/01/20 15:04 0.9 % Sodium Chloride Flush 3 Ml Syringe IVFLUSH Not Given QSHIFT [facility] Sucralfate 1 gm 07/01/20 07:30 07/01/20 12:13 Sucralfate Oral Suspension 1 Gm/10 Ml Oral.Susp PO 1 gm QIDACHS [facility] Administration Vitamin D 50 mcg 07/01/20 09:00 07/01/20 08:49 Cholecalciferol (Vitamin D3) 25 Mcg Tablet PO 50 mcg DAILY ROJAS Administration Home Medications Medication Instructions Recorded Confirmed Last Taken Type ascorbic acid (vitamin C) 500 mg 500 mg PO DAILY 02/19/20 06/30/20 Unknown History tablet cholecalciferol (vitamin D3) 50 50 mcg PO QAM 02/19/20 06/30/20 Unknown History mcg (2,000 unit) tablet ferrous sulfate 325 mg (65 mg 325 mg PO QAM 02/19/20 06/30/20 Unknown History iron) tablet hydrocodone 5 mg-acetaminophen 325 1 tab PO Q8H PRN 02/19/20 06/30/20 Unknown History mg tablet tamsulosin 0.4 mg capsule 0.4 mg PO BEDTIME 02/19/20 06/30/20 Unknown History atorvastatin 40 mg tablet 40 mg PO BEDTIME tab 03/25/20 06/30/20 Unknown History gabapentin 300 mg capsule 300 mg PO BID cap 04/28/20 06/30/20 Unknown History insulin aspart U-100 [Novolog 6 unit SUBCUT TID 06/30/20 06/30/20 Unknown History Flexpen U-100 Insulin] insulin glargine [Basaglar KwikPen 14 unit SUBCUT DAILY 06/30/20 06/30/20 Unknown History U-100 Insulin] sucralfate 10 ml PO QIDACHS 06/30/20 06/30/20 Unknown History Physical Exam Vital Signs: Last Vital Signs Temp 97.3 F 07/01/20 11:12 Pulse 64 07/01/20 11:12 Resp 16 07/01/20 11:12 BP 82/48 L 07/01/20 14:16 Pulse Ox 96 07/01/20 11:12 Body Mass Index 22.6 Const General: cooperative and no acute distress Orientation/consciousness: patient oriented x3 Eyes General: appearance normal, both eyes and all related structures Resp Effort & Inspection: normal respiratory effort and able to speak in complete sentences Cardio Rate: regular rate Rhythm: regular rhythm GI Other: Distended abdomen, nontender, no rebound, no guarding Palpation (GI): Firmness to palpation present (GI) Auscultation: normal bowel sounds Skin General skin exam: no rashes or lesions noted Neuro General: patient oriented x3 Cognition (Neuro): normal cognition Extrem General: Yes normal to inspection and Yes no pedal edema Results Lab Results Result Diagrams: 07/01/20 04:14 07/01/20 04:14 Lab results: Chemistry 06/30/20 07/01/20 07/01/20 19:08 00:15 04:14 Sodium 137 138 138 Potassium 5.3 H D 5.0 4.6 Carbon Dioxide 15 L 13 L 13 L BUN 76 H D 71 H 73 H Creatinine 6.76 H* 6.32 H* 6.11 H* Calcium 8.7 D 8.1 L D 8.0 L Hematology 06/30/20 07/01/20 19:08 04:14 WBC 11.8 H 11.7 H Hgb 9.4 L 8.6 L Plt Count 437 H D 362 Urinalysis 07/01/20 11:45 Urine Color DARK YELLOW Urine Appearance CLOUDY Urine pH 5.0 Ur Specific [place] >= 1.030 H Urine Protein 2+ H Urine Glucose (UA) NEG Urine Ketones 5 Urine Blood 3+ H Urine Nitrite NEG Ur Leukocyte Esterase TRACE H Urine RBC 30-49 H Urine WBC 0-2 Ur Squamous Epith Cells TRACE Urine Studies 06/30/20 06/30/20 20:41 20:41 Urine Osmolality 327 L Urine Creatinine 513.53 Assessment and Plan (1) Acute renal failure: Qualifiers: Acute renal failure type: unspecified Qualified Code(s): N17.9 - Acute kidney failure, unspecified Status: Acute (2) Acute dehydration: Status: Acute (3) GI bleed: Status: Acute (4) Diarrhea: Status: Acute (5) Metabolic acidosis: Status: Acute This is a 70-year-old male past medical history as above who presents to the hospital after recent discharge complaining of diarrhea as well as poor oral intake found to have severe TREMAYNE 1. Acute Kidney Injury suspect pre-renal given his history. clnically appears volume depleted possible hepatorenal syndrome given his known cirrhosis d/w nephrology -- give 1L bolus @ 250 cc/hr; increase bicarb drip to 150 cc/hr and start midodrine 2. Diarrhea non since arrival stool studies negative so far 3. Cirrhosis / asictes (cause of cirrhosis unclear -- pt reports heavy drinking but stopped years ago, Hep C positive but viral load neg) may need eventual tap, clinically no evidence of SPB, but will start empiric rocephin hold diuretics 4. DM diabetic, low Na, low K diet cover with sliding scale, hold lantus 5. Recent Gi bleed h/h stable continue PPI nadolol held due to low BP -- will restart if bp allows Full Code DVT pptx, Mechanical due to previous life threatening GI bleed
--- NOTE | 2020-07-01 15:21 | P.CONNP_ITS ---
History of Present Illness Reason for Consult Consult date: 07/01/20 Reason for consult: tremayne Chief Complaint Chief complaint: TREMAYNE History of Present Illness Narrative: 70 y/o adm with tremayne in setting of multiple chronic med probs and recent hhosp. C/O diarrhea and poor po intake. Labs reveal TREMAYNE andsevere AGMA/NAGMA. overnight on ivf and renal func min improved and low uop with less than 200 ml. Poor historian and seems confused. Deneis any ingestions or NSAID use. 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 Type 2 diabetes mellitus with hyperglycemia Review of Systems Review of Systems Constitutional: No Fever, No Chills ENT/Mouth: No sore throat, No Rhinorrhea, No Swallowing Difficulty Cardiovascular: No Chest Pain, No SOB, No Orthopnea, No Edema Respiratory: No Cough, No Sputum, No Wheezing, No dyspnea Gastrointestinal: + Nausea, + Vomiting, + Diarrhea, No abdominal Pain, No Hematochezia, No Melena Genitourinary: No Dysuria, No Urinary Frequency, No Hematuria Musculoskeletal: No joint pain, No Myalgias Skin: No Skin Lesions, No rash Neuro: + Weakness, No Numbness, No Dizziness, No Headache Psych: No Anxiety/Panic, + Depression Heme/Lymph: No Bruising, No Lymphadenopathy Endocrine: No Polyuria, No Polydipsia Yes all other systems are reviewed and are negative Constitutional: Reports poor appetite Gastrointestinal: Reports diarrhea PMFSH Past Medical History Medical History (Updated 07/01/20 @ 04:12 by Omar Birmingham MD) Anemia Ascites Cirrhosis Esophageal varices Essential hypertension GERD (gastroesophageal reflux disease) GI bleed Hyperlipidemia LDL goal <100 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 Type 2 diabetes mellitus with hyperglycemia Family History Family History Father Diabetes Mother Breast cancer Diabetes Cardiovascular disease Brother Diabetes Sister Diabetes Surgical History Surgical History History of liver biopsy Social History Social History Household Members: Family Housing: Unknown / Unable to assess Alcohol intake: former Smoking Status: Never smoker Smoked in Last 30 Days: No Second Hand Smoke Exposure: No Use of substances other than those prescribed or required for medical reasons: No Currently Displaying Signs/Symptoms of Drug Intoxication Withdrawal: No Any prior treatment program specific to substance use: No Have you been hit, kicked, punched, or otherwise hurt by someone within the past year? If so, by whom?: No Do you feel safe in your current relationship?: Yes Is there a partner from a previous relationship who is making you feel unsafe now?: No Are you made to feel afraid or neglected: No Advance Directives: No Advance Directives Information Provided: Yes Do you have thoughts of harming others: None Do you have a plan to hurt others: No Plan Recently lost weight without trying: No service: No Current occupational status: retired [employer] Allergies Allergy/AdvReac Type Severity Reaction Status Date / Time No Known Allergies Allergy Verified 05/26/20 10:49 Active Medications: Current Medications Generic Name Dose Route Start Last Admin Trade Name Freq PRN Reason Stop Dose Admin Hydrocodone Bitart/Acetaminophen 1 tab 07/01/20 02:11 Hydrocodone Bit/Acetam 5/325 Tablet PO Q8H PRN pain Ascorbic Acid 500 mg 07/01/20 09:00 07/01/20 08:49 Ascorbic Acid 500 Mg Tablet PO 500 mg DAILY ROJAS Administration Atorvastatin Calcium 40 mg 07/01/20 21:00 Atorvastatin Calcium 40 Mg Tablet PO BEDTIME ROJAS Sodium Bicarbonate 150 meq/ 1,000 mls @ 150 mls/hr 07/01/20 02:11 07/01/20 12:32 Dextrose IV Infused .Q6H40M ROJAS Infusion Albumin Human 100 mls @ 100 mls/hr 07/01/20 12:00 07/01/20 13:31 Kedbumin 25 % IV 07/02/20 06:59 Infused Q6H ROJAS Infusion Sodium Bicarbonate 150 meq/ 1,000 mls @ 250 mls/hr 07/01/20 12:30 07/01/20 14:02 Dextrose IV 07/01/20 16:29 250 mls/hr .Q4H ROJAS Administration Ceftriaxone Sodium 1 gm/ 50 mls @ 100 mls/hr 07/01/20 12:45 07/01/20 13:53 Sodium Chloride IV Infused Q24H ROJAS Infusion Insulin Human Lispro 0 unit 07/01/20 07:30 07/01/20 11:38 Insulin Lispro 100 Unit/Ml 3 Ml Vial SUBCUT Not Given [facility] Protocol Midodrine 5 mg 07/01/20 15:00 07/01/20 12:13 Midodrine Hcl 5 Mg Tablet PO 5 mg TID COUNT INCLUDES [facility] Administration Omeprazole 40 mg 07/01/20 06:30 07/01/20 06:28 Omeprazole 40 Mg Capsule. PO 40 mg BID@0630,1630 COUNT INCLUDES THE [facility] Administration Ondansetron HCl 4 mg 07/01/20 02:11 Ondansetron Hcl 4 Mg/2 Ml Vial IVPUSH Q8H PRN Nausea and Vomiting Pharmacy Consult 1 each 06/30/20 18:08 Consult Rx Perform Med Rec MISCELLANE ONCE PRN Consult order Sodium Chloride 3 ml 07/01/20 02:11 07/01/20 15:04 0.9 % Sodium Chloride Flush 3 Ml Syringe IVFLUSH Not Given QSH[facility] Sucralfate 1 gm 07/01/20 07:30 07/01/20 12:13 Sucralfate Oral Suspension 1 Gm/10 Ml Oral.Susp [facility] Administration Vitamin D 50 mcg 07/01/20 09:00 07/01/20 08:49 Cholecalciferol (Vitamin D3) 25 Mcg Tablet PO 50 mcg DAILY COUNT INCLUDES [facility] Administration Home Medications Medication Instructions Recorded Confirmed Last Taken Type ascorbic acid (vitamin C) 500 mg 500 mg PO DAILY 02/19/20 06/30/20 Unknown History tablet cholecalciferol (vitamin D3) 50 50 mcg PO QAM 02/19/20 06/30/20 Unknown History mcg (2,000 unit) tablet ferrous sulfate 325 mg (65 mg 325 mg PO QAM 02/19/20 06/30/20 Unknown History iron) tablet hydrocodone 5 mg-acetaminophen 325 1 tab PO Q8H PRN 02/19/20 06/30/20 Unknown History mg tablet tamsulosin 0.4 mg capsule 0.4 mg PO BEDTIME 02/19/20 06/30/20 Unknown History atorvastatin 40 mg tablet 40 mg PO BEDTIME tab 03/25/20 06/30/20 Unknown History gabapentin 300 mg capsule 300 mg PO BID cap 04/28/20 06/30/20 Unknown History insulin aspart U-100 [Novolog 6 unit SUBCUT TID 06/30/20 06/30/20 Unknown History Flexpen U-100 Insulin] insulin glargine [Basaglar KwikPen 14 unit SUBCUT DAILY 06/30/20 06/30/20 Unknown History U-100 Insulin] sucralfate 10 ml PO QIDACHS 06/30/20 06/30/20 Unknown History Physical Exam Vital Signs: Last Vital Signs Temp 97.3 F 07/01/20 11:12 Pulse 64 07/01/20 11:12 Resp 16 07/01/20 11:12 BP 82/48 L 07/01/20 14:16 Pulse Ox 96 07/01/20 11:12 Body Mass Index 22.6 Const General: cooperative and no acute distress Orientation/consciousness: patient oriented x3 Eyes General: appearance normal, both eyes and all related structures Resp Effort & Inspection: normal respiratory effort and able to speak in complete sentences Cardio Rate: regular rate Rhythm: regular rhythm GI Other: Distended abdomen, nontender, no rebound, no guarding Palpation (GI): Firmness to palpation present (GI) Auscultation: normal bowel sounds Skin General skin exam: no rashes or lesions noted Neuro General: patient oriented x3 Cognition (Neuro): normal cognition Extrem General: Yes normal to inspection and Yes no pedal edema Results Lab Results Result Diagrams: 07/01/20 04:14 07/01/20 04:14 Lab results: Chemistry 06/30/20 07/01/20 07/01/20 19:08 00:15 04:14 Sodium 137 138 138 Potassium 5.3 H D 5.0 4.6 Carbon Dioxide 15 L 13 L 13 L BUN 76 H D 71 H 73 H Creatinine 6.76 H* 6.32 H* 6.11 H* Calcium 8.7 D 8.1 L D 8.0 L Hematology 06/30/20 07/01/20 19:08 04:14 WBC 11.8 H 11.7 H Hgb 9.4 L 8.6 L Plt Count 437 H D 362 Urinalysis 07/01/20 11:45 Urine Color DARK YELLOW Urine Appearance CLOUDY Urine pH 5.0 Ur Specific [place] >= 1.030 H Urine Protein 2+ H Urine Glucose (UA) NEG Urine Ketones 5 Urine Blood 3+ H Urine Nitrite NEG Ur Leukocyte Esterase TRACE H Urine RBC 30-49 H Urine WBC 0-2 Ur Squamous Epith Cells TRACE Urine Studies 06/30/20 06/30/20 20:41 20:41 Urine Osmolality 327 L Urine Creatinine 513.53 Laboratory Tests 06/21/20 06/30/20 07/01/20 04:59 19:08 00:15 Creatinine 0.92 6.76 H* 6.32 H* 07/01/20 04:14 Creatinine 6.11 H* Assessment and Plan (1) Acute renal failure: Qualifiers: Acute renal failure type: unspecified Qualified Code(s): N17.9 - Acute kidney failure, unspecified Status: Acute (2) Acute dehydration: Status: Acute (3) GI bleed: Status: Acute (4) Diarrhea: Status: Acute (5) Metabolic acidosis: Status: Acute This is a 70-year-old male past medical history as above who presents to the hospital after recent discharge complaining of diarrhea as well as poor oral intake found to have severe TREMAYNE and metabolic acidosis 1. 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 AGMA/NAGMA: d/t tremayne and diarhea; lactate level not evelated 3. vol depleted on exam REC: ivf and iv albumin; cont iv nahco3 replacement; check spot urine na/creat; add midrdine 5 mg tid and will see about adding octreotide; avoid ntoxins; no indication for HD yet but will need to follow karie
[2020-07-01 16:33] LABS: Glucose, Whole Blood 156 mg/dL (60-115)
[2020-07-01 17:13] LABS: Anion Gap 22 (12-20); Blood Urea Nitrogen 76 mg/dL (9-16); Calcium 7.9 mg/dL (8.4-10.2); Carbon Dioxide 18 mmol/L (22-29); Chloride 102 mmol/L (96-108); Creatinine Clr Calc Pharmacy 10.3; Estimated Glomerular Filt Rate 9; Glucose Random 165 mg/dL (60-115); Potassium 3.9 mmol/L (3.3-5.1); Sodium 138 mmol/L (135-145)
[2020-07-01] MEDS: Octreotide Acetate 100 MCG/ML AMPUL 200 MCG SUBCUT (17:52)
--- NOTE | 2020-07-01 18:33 | PC.NURSE ---
183 BP 82/45 MANUALLY PT DROWSY , PT MADE 10MLS OF JARRED URINE SINCE 1499- [address] CRUZ INTO SEE PT . PT BEING TRANSFERED TO [facility] [place], [place] .
[2020-07-01] MEDS: Sodium Bicarbonate 8.4% 150 MEQ in Dextrose 5 % 850 ML 100 MEQ IV (19:44)
[2020-07-01] MEDS: Midodrine HCl 10 MG TABLET PO (19:46)
[2020-07-01] MEDS: Atorvastatin Calcium 40 MG TABLET PO (19:46)
[2020-07-01] MEDS: 0.9 % Sodium Chloride Flush 3 ML SYRINGE IVFLUSH (19:47)
[2020-07-01 20:03] LABS: Glucose, Whole Blood 124 mg/dL (60-115)
[2020-07-01] MEDS: Nystatin Cream 15 GM TUBE 1 APPL TOPICAL (20:09)
[2020-07-02] VITALS (9 sets, daily range): BP systolic 83–119; BP diastolic 44–75; PULSE 57–96; RESP 17–19; TEMP 36.1–37; O2SAT 94–99
[2020-07-02] MEDS: Octreotide Acetate 100 MCG/ML AMPUL 200 MCG SUBCUT ×3 (00:49→17:48)
[2020-07-02] MEDS: Sodium Bicarbonate 8.4% 150 MEQ in Dextrose 5 % 850 ML 100 MEQ IV (05:53)
[2020-07-02] MEDS: Albumin Human 25 % 100 ML IV ×3 (05:55→20:27)
[2020-07-02] MEDS: Omeprazole 40 MG CAPSULE.DR PO ×2 (05:55→17:48)
[2020-07-02 06:25] LABS: Hematocrit 22.6 % (42-52); Hemoglobin 7.3 g/dl (14.0-18.0); Mean Corpuscular HGB Conc 32.3 g/dl (31.0-36.0); Mean Corpuscular Hemoglobin 28.9 pg (27.0-33.0); Mean Corpuscular Volume 89.3 fL (80-98); Platelet Count 310 X10*3/uL (160-400); Red Blood Count 2.53 X10*6/uL (4.60-5.80); Red Cell Distribution Width 17.2 % (11.0-16.0); White Blood Count 7.9 X10*3/uL (4.8-10.8)
[2020-07-02 06:46] LABS: Anion Gap 25 (12-20); Blood Urea Nitrogen 76 mg/dL (9-16); Calcium 7.8 mg/dL (8.4-10.2); Carbon Dioxide 23 mmol/L (22-29); Chloride 95 mmol/L (96-108); Creatinine Clr Calc Pharmacy 9.9; Estimated Glomerular Filt Rate 9; Glucose Random 158 mg/dL (60-115); Potassium 3.5 mmol/L (3.3-5.1); Sodium 139 mmol/L (135-145)
[2020-07-02 07:12] LABS: Glucose, Whole Blood 149 mg/dL (60-115)
[2020-07-02] MEDS: Sucralfate Oral Suspension 1 GM/10 ML ORAL.SUSP PO ×4 (09:14→20:29)
[2020-07-02] MEDS: Nystatin Cream 15 GM TUBE 1 APPL TOPICAL ×2 (09:15→20:45)
[2020-07-02] MEDS: Ascorbic Acid 500 MG TABLET PO (09:15)
[2020-07-02] MEDS: Cholecalciferol (Vitamin D3) 25 MCG TABLET 50 MCG PO (09:15)
[2020-07-02] MEDS: Midodrine HCl 10 MG TABLET PO (09:15)
--- NOTE | 2020-07-02 11:09 | MHC.CM.PN ---
Per ROUNDS discussion, Patient is not yet medically cleared for dc (not making urine and may need new HD, IV Ceftriaxone). Home is the goal for dc and CM will follow for possible need to adjust the dc plan.
[2020-07-02 11:32] LABS: Glucose, Whole Blood 185 mg/dL (60-115)
[2020-07-02] MEDS: Insulin Lispro 100 UNIT/ML 3 ML VIAL SUBCUT (11:38)
--- NOTE | 2020-07-02 12:23 | PM.PNNEP ---
Subjective Subjective Date of Service: 07/02/20 Interval history: seen and examined this AM no specific complaints denies abdominal pain ROS General - no fevers or chills Cardiovascular - no chest pain Respiratory - no shortness of breath or cough Abdominal- no abdominal pain, nausea, vomiting, diarrhea Physical Exam Vital Signs: Vital Signs: Last Vital Signs Temp 97.2 F 07/02/20 11:50 Pulse 60 07/02/20 11:50 Resp 18 07/02/20 11:50 BP 84/44 L 07/02/20 11:50 Pulse Ox 98 07/02/20 11:50 Body Mass Index 22.6 Const: General: cooperative and no acute distress Orientation/consciousness: patient oriented x3 Eyes: General: appearance normal, both eyes and all related structures Resp: Effort & Inspection: normal respiratory effort and able to speak in complete sentences Cardio: Rate: regular rate Rhythm: regular rhythm GI: Other: Distended abdomen, nontender, no rebound, no guarding Palpation (GI): Firmness to palpation present (GI) Auscultation: normal bowel sounds Skin: General skin exam: no rashes or lesions noted Neuro: General: patient oriented x3 Cognition (Neuro): normal cognition Extrem: General: Yes normal to inspection and Yes no pedal edema Objective Data Labs CBC & Chem 7: 07/02/20 05:25 07/02/20 05:25 Labs: Laboratory Results - last 24 hr 07/01/20 07/01/20 07/01/20 11:45 11:52 16:18 WBC RBC Hgb Hct MCV MCH MCHC RDW Plt Count MPV Absolute Nucleated RBC Nucleated RBC % (auto) Sodium 138 Potassium 3.9 Chloride 102 Carbon Dioxide 18 L Anion Gap 22 H BUN 76 H Creatinine 6.14 H* Estim Creat Clear Calc 10.3 Estimated GFR 9 POC Glucose Random Glucose 165 H Calcium 7.9 L Urine Color DARK YELLOW Urine Appearance CLOUDY Urine pH 5.0 Ur Specific [place] >= 1.030 H Urine Protein 2+ H Urine Glucose (UA) NEG Urine Ketones 5 Urine Blood 3+ H Urine Nitrite NEG Ur Leukocyte Esterase TRACE H Urine RBC 30-49 H Urine WBC 0-2 Ur Squamous Epith Cells TRACE Amorphous Sediment 1+ Urine Bacteria 1+ Urine Opiates Screen Not Detected Ur Barbiturates Screen Not Detected Ur Phencyclidine Scrn Not Detected Ur Amphetamines Screen Not Detected U Benzodiazepines Scrn Not Detected Urine Cocaine Screen Not Detected U Marijuana (THC) Screen Not Detected 07/01/20 07/01/20 07/02/20 16:19 19:55 05:25 WBC 7.9 RBC 2.53 L Hgb 7.3 L Hct 22.6 L MCV 89.3 MCH 28.9 MCHC 32.3 RDW 17.2 H Plt Count 310 MPV 11.0 Absolute Nucleated RBC 0.000 Nucleated RBC % (auto) 0.0 Sodium Potassium Chloride Carbon Dioxide Anion Gap BUN Creatinine Estim Creat Clear Calc Estimated GFR POC Glucose 156 H 124 H Random Glucose Calcium Urine Color Urine Appearance Urine pH Ur Specific [place] Urine Protein Urine Glucose (UA) Urine Ketones Urine Blood Urine Nitrite Ur Leukocyte Esterase Urine RBC Urine WBC Ur Squamous Epith Cells Amorphous Sediment Urine Bacteria Urine Opiates Screen Ur Barbiturates Screen Ur Phencyclidine Scrn Ur Amphetamines Screen U Benzodiazepines Scrn Urine Cocaine Screen U Marijuana (THC) Screen 07/02/20 07/02/20 07/02/20 05:25 07:03 11:23 WBC RBC Hgb Hct MCV MCH MCHC RDW Plt Count MPV Absolute Nucleated RBC Nucleated RBC % (auto) Sodium 139 Potassium 3.5 Chloride 95 L Carbon Dioxide 23 Anion Gap 25 H BUN 76 H Creatinine 6.38 H* Estim Creat Clear Calc 9.9 Estimated GFR 9 POC Glucose 149 H 185 H Random Glucose 158 H Calcium 7.8 L Urine Color Urine Appearance Urine pH Ur Specific [place] Urine Protein Urine Glucose (UA) Urine Ketones Urine Blood Urine Nitrite Ur Leukocyte Esterase Urine RBC Urine WBC Ur Squamous Epith Cells Amorphous Sediment Urine Bacteria Urine Opiates Screen Ur Barbiturates Screen Ur Phencyclidine Scrn Ur Amphetamines Screen U Benzodiazepines Scrn Urine Cocaine Screen U Marijuana (THC) Screen Microbiology Microbiology Results: Microbiology 07/01/20 06:57 Stool Stool Culture - Preliminary Normal so far. 07/01/20 Unknown Urine Catheterized - Ch Catheter Urine Culture - Final No growth. 06/30/20 19:12 Blood - Venous Blood Culture - Preliminary No growth after 24 hours. 06/30/20 19:08 Blood - Venous Blood Culture - Preliminary No growth after 24 hours. Assessment & Plan Assessment and plan (1) Acute renal failure: Status: Acute (2) Acute dehydration: Status: Acute (3) GI bleed: Status: Acute (4) Diarrhea: Status: Acute (5) Metabolic acidosis: Status: Acute Assessment and Plan: This is a 70-year-old male past medical history as above who presents to the hospital after recent discharge complaining of diarrhea as well as poor oral intake found to have severe TREMAYNE and metabolic acidosis 1. Acute Kidney Injury: clinically still looks intravasc dry depeite 3.5 L IVF yesterday and UOP 70 ml; FENa << 1% ques remains HRS type 1 precipitated by severe dehydration fronm N/V/diarrhea or reversible HRS type 1 on full cocktail of Tx which needs to include IV alb, octreotide, midridine and cont IVF; need to check with GI to see if he is a liver xplant candidate and if yes then consider xfer to liver xplant program interestingly his liver func sttatus loks well compensated at this time based on labs (LFTs, PT, ammonia level) and absence of asterixis nothing to support alt poss AIN and AGN which seem unlikely acute obs again seems doubtful given that he ahs fole in place 2. AGMA/NAGMA: resolved 3. intravascul;ar eff arterial vol depleted on exam REC: cont ivf and iv albumin; incr midrdine 10 mg tid and add octreotide; avoid ntoxins; no indication for HD yet but will need to follow karie; ask GI about poss xfer to liver xplant program Time Spent With Patient Time: Total time spent is greater than 50% in coordination of care (as documented) at patient's floor/unit and/or counseling patient:
[2020-07-02] MEDS: 0.9 % Sodium Chloride 1,000 ML 500 ML IVCONT (13:18)
[2020-07-02] MEDS: 0.9 % Sodium Chloride 500 ML 250 ML IVCONT (13:24)
--- NOTE | 2020-07-02 13:37 | P.PNIM_ITS ---
Subjective Subjective Date of Service: 07/02/20 Interval History: patient seen and examined at bedside no specific complaints denies abdominal pain ROS General - no fevers or chills Cardiovascular - no chest pain Respiratory - no shortness of breath or cough Abdominal- no abdominal pain, nausea, vomiting, diarrhea Review of Systems Constitutional: No Fever, No Chills ENT/Mouth: No sore throat, No Rhinorrhea, No Swallowing Difficulty Cardiovascular: No Chest Pain, No SOB, No Orthopnea, No Edema Respiratory: No Cough, No Sputum, No Wheezing, No dyspnea Gastrointestinal: + Nausea, + Vomiting, + Diarrhea, No abdominal Pain, No He matochezia, No Melena Genitourinary: No Dysuria, No Urinary Frequency, No Hematuria Musculoskeletal: No joint pain, No Myalgias Skin: No Skin Lesions, No rash Neuro: + Weakness, No Numbness, No Dizziness, No Headache Psych: No Anxiety/Panic, + Depression Heme/Lymph: No Bruising, No Lymphadenopathy Endocrine: No Polyuria, No Polydipsia Constitutional Constitutional: Reports poor appetite Gastrointestinal Gastrointestinal: Reports diarrhea Physical Exam Vital Signs: Vital Signs: Last Vital Signs Temp 97.2 F 07/02/20 11:50 Pulse 60 07/02/20 11:50 Resp 18 07/02/20 11:50 BP 84/44 L 07/02/20 11:50 Pulse Ox 98 07/02/20 11:50 Body Mass Index 22.6 Const: General: cooperative and no acute distress Eyes: General: appearance normal, both eyes and all related structures Resp: Effort & Inspection: normal respiratory effort and able to speak in complete sentences Cardio: Rate: regular rate Rhythm: regular rhythm GI: Other: Distended abdomen, nontender, no rebound, no guarding Palpation (GI): Firmness to palpation present (GI) Auscultation: normal bowel sounds Skin: General skin exam: no rashes or lesions noted Neuro: Cognition (Neuro): normal cognition Extrem: General: Yes normal to inspection and Yes no pedal edema Objective Data Current Medications Generic Name Dose Route Start Last Admin Trade Name Freq PRN Reason Stop Dose Admin Hydrocodone Bitart/Acetaminophen 1 tab 07/01/20 02:11 Hydrocodone Bit/Acetam 5/325 Tablet PO Q8H PRN pain Ascorbic Acid 500 mg 07/01/20 09:00 07/02/20 09:15 Ascorbic Acid 500 Mg Tablet PO 500 mg DAILY [facility] Administration Atorvastatin Calcium 40 mg 07/01/20 21:00 07/01/20 19:46 Atorvastatin Calcium 40 Mg Tablet PO 40 mg BEDTIME [facility] Administration Ceftriaxone Sodium 1 gm/ 50 mls @ 100 mls/hr 07/01/20 12:45 07/01/20 13:53 Sodium Chloride IV Infused Q24H [facility] Infusion Sodium Chloride 1,000 mls @ 150 mls/hr 07/02/20 12:45 Ns IVCONT .Q6H40M [facility] Insulin Human Lispro 0 unit 07/01/20 07:30 07/02/20 11:38 Insulin Lispro 100 Unit/Ml 3 Ml Vial SUBCUT 2 unit QIDACHS [facility] Administration Protocol Midodrine 20 mg 07/02/20 15:00 Midodrine Hcl 10 Mg Tablet PO TID [facility] Nystatin 1 appl 07/01/20 21:00 07/02/20 09:15 Nystatin Cream 15 Gm Tube TOPICAL 1 appl BID [facility] Administration Protocol Octreotide Acetate 200 mcg 07/01/20 18:00 07/02/20 11:35 Octreotide Acetate 100 Mcg/Ml Ampul SUBCUT 200 mcg Q8H [facility] Administration Omeprazole 40 mg 07/01/20 06:30 07/02/20 05:55 Omeprazole 40 Mg Capsule.Dr PO 40 mg BID@0630,1630 [facility] Administration Ondansetron HCl 4 mg 07/01/20 02:11 Ondansetron Hcl 4 Mg/2 Ml Vial IVPUSH Q8H PRN Nausea and Vomiting Pharmacy Consult 1 each 06/30/20 18:08 Consult Rx Perform Med Rec MISCELLANE ONCE PRN Consult order Sodium Chloride 3 ml 07/01/20 02:11 07/02/20 09:14 0.9 % Sodium Chloride Flush 3 Ml Syringe IVFLUSH Not Given QSHIFT [facility] Sucralfate 1 gm 07/01/20 07:30 07/02/20 11:38 Sucralfate Oral Suspension 1 Gm/10 Ml Oral.Susp PO 1 gm QIDACHS [facility] Administration Vitamin D 50 mcg 07/01/20 09:00 07/02/20 09:15 Cholecalciferol (Vitamin D3) 25 Mcg Tablet PO 50 mcg DAILY [facility] Administration Labs CBC & Chem 7: 07/02/20 05:25 07/02/20 05:25 Microbiology Microbiology Results: Microbiology 07/01/20 06:57 Stool Stool Culture - Preliminary Normal so far. 07/01/20 Unknown Urine Catheterized - Ch Catheter Urine Culture - Final No growth. 06/30/20 19:12 Blood - Venous Blood Culture - Preliminary No growth after 24 hours. 06/30/20 19:08 Blood - Venous Blood Culture - Preliminary No growth after 24 hours. Assessment and Plan (1) Acute renal failure: Status: Acute (2) Acute dehydration: Status: Acute (3) GI bleed: Status: Acute (4) Diarrhea: Status: Acute (5) Metabolic acidosis: Status: Acute Assessment and Plan: This is a 70-year-old male past medical history as above who presents to the hospital after recent discharge complaining of diarrhea as well as poor oral intake found to have severe MIKA 1. Acute Kidney Injury likely pre renal possible hepatorenal syndrome also playing role given his known cirrhosis urine output very low nephrology following creatinine trending up 6.38 today blood pressure improved this morning but started trending down later drop to 80s patient mentally stable , discussed with nephrology recomend ordering normal saline bolus 250 mL and to increase IV fluid, increase midodrine to 20 t.i.d., continue albumin i/v every 6 hour , blood pressure improved to 90s now, discussed with advanced nursing professor Dr. sotelo around 3.25 pm to make plan if bp drop again recomend continue current management given patient's mental status stable recommended keeping patient on floor as long as blood pressure remains 80 or above no need for IV pressors until blood pressure drops less than 80 per advanced nursing professor patient will likely need dialysis at some point continue midodrine octreotide and albumin will monitor closely for hypotention hypotension from dehydration Mika I not from sepsis 2. Diarrhea improved non since arrival stool studies negative so far 3. Cirrhosis / asictes (cause of cirrhosis unclear -- pt reports heavy drinking but stopped years ago, Hep C positive but viral load neg) may need eventual tap, clinically no evidence of SPB, started on empiric rocephin hold diuretics 4. DM diabetic, low Na, low K diet cover with sliding scale, hold lantus Recent Gi bleed h/h down today no signs of active bleed at this point likely dilutional hemoglobin 7.3 today continue PPI monitor for bleeding Full Code DVT pptx, Mechanical due to previous life threatening GI bleed
[2020-07-02 13:59] LABS: Creatinine Urine 392.45 mg/dL; Sodium Urine Random < 20.0 mmol/L
[2020-07-02] MEDS: cefTRIAXone sodium 1 GM in 0.9 % Sodium Chloride 50 ML IV (14:01)
[2020-07-02] MEDS: 0.9 % Sodium Chloride 1,000 ML 150 ML IVCONT ×2 (14:04→20:27)
[2020-07-02 14:20] LABS: Alanine Aminotransferase 34 U/L (0-40); Albumin Level 3.5 g/dL (3.5-5.0); Alkaline Phosphatase 533 U/L (39-117); Aspartate Amino Transferase 112 U/L (5-37); Bilirubin Direct 1.1 mg/dL (0.0-0.5); Bilirubin Total 1.3 mg/dL (0.0-1.0); Total Protein 6.2 g/dL (6.5-8.0)
[2020-07-02 14:32] LABS: INTERNATIONAL NORM RATIO 1.3 (0.9-1.1); Prothrombin Time 14.9 SEC (10.8-13.0)
[2020-07-02] MEDS: Midodrine HCl 10 MG TABLET 20 MG PO ×2 (14:57→20:30)
[2020-07-02] MEDS: 0.9 % Sodium Chloride Flush 3 ML SYRINGE IVFLUSH (14:58)
[2020-07-02 16:26] LABS: Glucose, Whole Blood 91 mg/dL (60-115)
[2020-07-02] MEDS: Atorvastatin Calcium 40 MG TABLET PO (20:31)
[2020-07-02 20:38] LABS: Glucose, Whole Blood 131 mg/dL (60-115)
[2020-07-02 21:26] LABS: Glucose Urine UA NEG (NEG); Leukocyte Esterase Urine 2+ (NEG); PH 6.5 (5.0-8.0); Specific Gravity - Urine >= 1.030 (1.005-1.025); Urine Blood 3+ (NEG); Urine Ketones 5 MG/DL (NEG); Urine Protein 3+ MG/DL (NEG-TRACE)
[2020-07-02 21:37] LABS: Color Urine BROWN
[2020-07-02 21:38] LABS: Appearance Urine TURBID; Nitrite Urine NEG (NEG); RBC Urine TNTC /HPF (0); Squamous Epithelial Cell Urine 1+ /LPF
[2020-07-02 21:39] LABS: Bacteria Urine 2+ /LPF; Mucus Urine 2+ /LPF
--- NOTE | 2020-07-02 22:27 | P.PNNP_ITS ---
Subjective Subjective Date of Service: 07/02/20 Interval history: Renal Update Repeat Urine tudies again show impressive Urine Creat over 300 and FENa << 1% still c/w renal hypoperfusion not repsoding to aggressive IVF thus suggestive of HRS type 1 not repsonding to cocktail of IV albumin/octreotide/midrdine. Nonetheless will get additional sero and renal U/S ( prior CYT no Obs); serum uric acid to r/o acute Urate Nephropathy; card echo to assess LV func and will look at possible HD tomorrow. Physical Exam Vital Signs: Vital Signs: Last Vital Signs Temp 98.4 F 07/02/20 19:39 Pulse 62 07/02/20 20:30 Resp 19 07/02/20 19:39 BP 97/53 L 07/02/20 20:30 Pulse Ox 94 07/02/20 19:39 Body Mass Index 22.6 Objective Data Labs CBC & Chem 7: 07/02/20 05:25 07/02/20 05:25 Labs: Laboratory Results - last 24 hr 07/01/20 07/02/20 07/02/20 00:15 05:25 05:25 WBC 7.9 RBC 2.53 L Hgb 7.3 L Hct 22.6 L MCV 89.3 MCH 28.9 MCHC 32.3 RDW 17.2 H Plt Count 310 MPV 11.0 Absolute Nucleated RBC 0.000 Nucleated RBC % (auto) 0.0 PT INR Sodium 139 Potassium 3.5 Chloride 95 L Carbon Dioxide 23 Anion Gap 25 H BUN 76 H Creatinine 6.38 H* Estim Creat Clear Calc 9.9 Estimated GFR 9 POC Glucose Random Glucose 158 H Calcium 7.8 L Total Bilirubin 1.3 H Direct Bilirubin 1.1 H AST 112 H ALT 34 Alkaline Phosphatase 533 H D Total Protein 6.2 L Albumin 3.5 Urine Color Urine Appearance Urine pH Ur Specific [place] Urine Protein Urine Glucose (UA) Urine Ketones Urine Blood Urine Nitrite Ur Leukocyte Esterase Urine RBC Urine WBC Ur Squamous Epith Cells Urine Bacteria Hyaline Casts Granular Casts Urine Mucus Urine Yeast Ur Random Sodium Urine Creatinine Blood Type O Positive Antibody Screen NEGATIVE Crossmatch See Detail 07/02/20 07/02/20 07/02/20 07:03 10:00 11:23 WBC RBC Hgb Hct MCV MCH MCHC RDW Plt Count MPV Absolute Nucleated RBC Nucleated RBC % (auto) PT INR Sodium Potassium Chloride Carbon Dioxide Anion Gap BUN Creatinine Estim Creat Clear Calc Estimated GFR POC Glucose 149 H 185 H Random Glucose Calcium Total Bilirubin Direct Bilirubin AST ALT Alkaline Phosphatase Total Protein Albumin Urine Color BROWN Urine Appearance TURBID Urine pH 6.5 Ur Specific [place] >= 1.030 H Urine Protein 3+ H Urine Glucose (UA) NEG Urine Ketones 5 Urine Blood 3+ H Urine Nitrite NEG Ur Leukocyte Esterase 2+ H Urine RBC TNTC H Urine WBC 10-14 H Ur Squamous Epith Cells 1+ Urine Bacteria 2+ Hyaline Casts 1-4 Granular Casts 1-4 Urine Mucus 2+ Urine Yeast 2+ Ur Random Sodium Urine Creatinine Blood Type Antibody Screen Crossmatch 07/02/20 07/02/20 07/02/20 14:01 15:37 19:42 WBC RBC Hgb Hct MCV MCH MCHC RDW Plt Count MPV Absolute Nucleated RBC Nucleated RBC % (auto) PT 14.9 H INR 1.3 H Sodium Potassium Chloride Carbon Dioxide Anion Gap BUN Creatinine Estim Creat Clear Calc Estimated GFR POC Glucose 91 131 H Random Glucose Calcium Total Bilirubin Direct Bilirubin AST ALT Alkaline Phosphatase Total Protein Albumin Urine Color Urine Appearance Urine pH Ur Specific [place] Urine Protein Urine Glucose (UA) Urine Ketones Urine Blood Urine Nitrite Ur Leukocyte Esterase Urine RBC Urine WBC Ur Squamous Epith Cells Urine Bacteria Hyaline Casts Granular Casts Urine Mucus Urine Yeast Ur Random Sodium Urine Creatinine Blood Type Antibody Screen Crossmatch 07/02/20 Unknown WBC RBC Hgb Hct MCV MCH MCHC RDW Plt Count MPV Absolute Nucleated RBC Nucleated RBC % (auto) PT INR Sodium Potassium Chloride Carbon Dioxide Anion Gap BUN Creatinine Estim Creat Clear Calc Estimated GFR POC Glucose Random Glucose Calcium Total Bilirubin Direct Bilirubin AST ALT Alkaline Phosphatase Total Protein Albumin Urine Color Urine Appearance Urine pH Ur Specific [place] Urine Protein Urine Glucose (UA) Urine Ketones Urine Blood Urine Nitrite Ur Leukocyte Esterase Urine RBC Urine WBC Ur Squamous Epith Cells Urine Bacteria Hyaline Casts Granular Casts Urine Mucus Urine Yeast Ur Random Sodium < 20.0 Urine Creatinine 392.45 Blood Type Antibody Screen Crossmatch Microbiology Microbiology Results: Microbiology 06/30/20 19:12 Blood - Venous Blood Culture - Preliminary No growth after 48 hours. 06/30/20 19:08 Blood - Venous Blood Culture - Preliminary No growth after 48 hours. 07/01/20 06:57 Stool Stool Culture - Preliminary Normal so far. 07/01/20 Unknown Urine Catheterized - Ch Catheter Urine Culture - Final No growth. Assessment & Plan Time Spent With Patient Time: Total time spent is greater than 50% in coordination of care (as documented) at patient's floor/unit and/or counseling patient:
[2020-07-02 23:37] LABS: Albumin Level 3.9 g/dL (3.5-5.0); Phosphorus 5.5 mg/dL (2.7-4.5)
--- NOTE | 2020-07-02 23:41 | PC.NURSE ---
This RN received orders from . Patient is to be NPO at midnight and will have an u/s, and cardiac echo in the morning and possible dialysis catheter placement. Patient fluids titrated to 70ml/hr as ordered. urine output for 4 hours of this RN shift was 30ml. patient has intermittent abdominal pain with no c/o sob or other discomfort. Oncoming RN made aware of new orders.
[2020-07-03] VITALS (8 sets, daily range): BP systolic 96–117; BP diastolic 52–61; PULSE 61–87; RESP 17–20; TEMP 36–37; O2SAT 92–94
[2020-07-03 01:36] LABS: Uric Acid 19.2 mg/dL (3.4-7.0)
[2020-07-03] MEDS: Albumin Human 25 % 100 ML IV ×2 (02:19→09:37)
[2020-07-03] MEDS: Octreotide Acetate 100 MCG/ML AMPUL 200 MCG SUBCUT ×2 (02:27→09:41)
[2020-07-03 07:14] LABS: Glucose, Whole Blood 125 mg/dL (60-115)
--- NOTE | 2020-07-03 07:30 | CA_ITS ---
Transthoracic Echocardiogram Patient (Last, First, Middle): Brendon Tidwell M Gender: Male Date of : 1950 Age: 70 Procedure Date: 07/03/2020 Procedure Type: Transthoracic Echocardiogram [place] [facility] [place]: 167.64 cm Weight: 63.5 kg BSA: 1.72 m2 Heart Rate: bpm BP: 108 / 54 mmHg English Professor: BRYAN Referring MD: Reuben Griffin MD Symptoms: assess LV func Study Quality: Technically Difficult Conclusions: - Normal left ventricular size and systolic function. There is mildly increased left ventricular wall thickness. The visually estimated ejection fraction is between 55-60%. - Normal right ventricular cavity size and systolic function. - The left atrium is mildly dilated. Findings Left Ventricle Normal left ventricular size and systolic function. There is mildly increased left ventricular wall thickness. The visually estimated ejection fraction is between 55-60%. There is no evidence of regional wall motion abnormalities. Diastolic function is normal for age. Right Ventricle Normal right ventricular cavity size and systolic function. Atria The left atrium is mildly dilated. Aortic Valve The aortic valve was not well visualized. There is no aortic valve stenosis. There is trace (trivial) aortic valve regurgitation. Mitral Valve Normal mitral valve structure and function. There is trace mitral valve regurgitation. There is no mitral valve stenosis. Pulmonic Valve The pulmonic valve was not well visualized. Tricuspid Valve Normal tricuspid valve structure and function. There is trace tricuspid valve regurgitation. Normal right atrial pressure. There is no evidence of pulmonary hypertension. Great Vessels All visible segments of the aorta are normal in size. The pulmonary artery was not well visualized. Venous The inferior vena cava is normal in size and collapses greater than 50% with inspiration. Pericardium/Pleural There is no evidence of pericardial effusion. Prior Study Comparison No prior study available for comparison. Measurements M-Mode Liner Measurements Normals - Women/Men AOV Cusps: 1.70 1.5-2.6 cm/m2 2D Linear Measurements IVSd: 1.10 0.6-0.9/0.6-1.0 cm LVIDd: 4.23 3.9-5.3/4.2-5.9 cm LVIDd Index: 2.46 2.4-3.2/2.2-3.1 cm/m2 LVIDs: 3.63 2.0-3.6 cm LVPWd: 1.03 0.7-1.1 cm Ao Root: 3.00 2.1-3.5 cm LA Diam: 2.70 2.7-3.8/3.0-4.0 cm LAIDs Index: 1.57 1.5-2.3 cm/m2 LV Mass: 188.84 67-162/88-224 g LV Mass Index: 109.79 43-95/49-115 g/m2 LVOT Diam: 2.30 3.0+(-)1.3 cm 2D Systolic Function EF 4C: 65.50 >55% EF 2C: 51.10 >55% EF BiP: 59.00 >55% Mitral Valve MV Pk E: 0.70 MV PK A: 0.67 MV Decel Time: 325.00 E/A: 1.00 E'Lateral: 11.00 E'Medial: 8.81 E/E' Med: 7.90 E/E' Lat: 6.30 PHT: 95.00 MVA PHT: 2.32 Decel [place]: 2.14 Aortic Valve AoV Pk Aime: 1.47 AoV Pk Grad: 9.00 LVOT LVOT Pk Aime: 0.89 LVOT Mn Aime: 0.62 LVOT VTI: 0.21 LVOT Pk Grad: 3.00 LVOT Mn Grad: 2.00 LVOT Diam: 2.30 LVOT Area: 4.15 Diastolic Function MV Pk E: 0.70 MV Pk A: 0.67 E/A: 1.00 E'Medial: 8.81 E/E' Med: 7.90 E' Laterial: 11.00 E/E' Lat: 6.30 Tricuspid Valve TR Pk Aime: 2.64 TR Pk Grad: 28.00 RA Press: 3.00 RVSP: 31.00 Great Vessels Aorta Ao Root-2D: 3.00 2.0-3.7 cm Ao Arch: 2.80 Updated in Other Vendor System with Status of Final Ladarius Salinas MD electronically signed on 07/03/2020 9:25:07 PM with status of Final
[2020-07-03] MEDS: Nystatin Cream 15 GM TUBE 1 APPL TOPICAL ×2 (09:40→21:36)
--- NOTE | 2020-07-03 11:04 | PM.PNNEP ---
Subjective Subjective Date of Service: 07/03/20 Interval history: Seen and examined. Events noted Remians anuric. Serum UAL 19.2 !! . Physical Exam Vital Signs: Vital Signs: Last Vital Signs Temp 97 F 07/03/20 07:29 Pulse 75 07/03/20 09:09 Resp 17 07/03/20 07:29 BP 99/52 L 07/03/20 09:09 Pulse Ox 92 07/03/20 07:29 Body Mass Index 22.6 Const: General: cooperative and no acute distress Orientation/consciousness: patient oriented x3 Eyes: General: appearance normal, both eyes and all related structures Resp: Effort & Inspection: normal respiratory effort and able to speak in complete sentences Cardio: Rate: regular rate Rhythm: regular rhythm GI: Palpation (GI): Firmness to palpation present (GI) Auscultation: normal bowel sounds Skin: General skin exam: no rashes or lesions noted Neuro: General: patient oriented x3 Cognition (Neuro): normal cognition Extrem: General: Yes normal to inspection and Yes no pedal edema Objective Data Labs CBC & Chem 7: 07/02/20 05:25 07/02/20 05:25 Labs: Laboratory Results - last 24 hr 07/01/20 07/02/20 07/02/20 00:15 05:25 10:00 PT INR POC Glucose Uric Acid Phosphorus Total Bilirubin 1.3 H Direct Bilirubin 1.1 H AST 112 H ALT 34 Alkaline Phosphatase 533 H D Total Creatine Kinase Total Protein 6.2 L Albumin 3.5 Urine Color BROWN Urine Appearance TURBID Urine pH 6.5 Ur Specific [place] >= 1.030 H Urine Protein 3+ H Urine Glucose (UA) NEG Urine Ketones 5 Urine Blood 3+ H Urine Nitrite NEG Ur Leukocyte Esterase 2+ H Urine RBC TNTC H Urine WBC 10-14 H Ur Squamous Epith Cells 1+ Urine Bacteria 2+ Hyaline Casts 1-4 Granular Casts 1-4 Urine Mucus 2+ Urine Yeast 2+ Ur Random Sodium Urine Creatinine Blood Type O Positive Antibody Screen NEGATIVE Crossmatch See Detail 07/02/20 07/02/20 07/02/20 11:23 14:01 15:37 PT 14.9 H INR 1.3 H POC Glucose 185 H 91 Uric Acid Phosphorus Total Bilirubin Direct Bilirubin AST ALT Alkaline Phosphatase Total Creatine Kinase Total Protein Albumin Urine Color Urine Appearance Urine pH Ur Specific [place] Urine Protein Urine Glucose (UA) Urine Ketones Urine Blood Urine Nitrite Ur Leukocyte Esterase Urine RBC Urine WBC Ur Squamous Epith Cells Urine Bacteria Hyaline Casts Granular Casts Urine Mucus Urine Yeast Ur Random Sodium Urine Creatinine Blood Type Antibody Screen Crossmatch 07/02/20 07/02/20 07/02/20 19:42 22:57 Unknown PT INR POC Glucose 131 H Uric Acid 19.2 H Phosphorus 5.5 H Total Bilirubin Direct Bilirubin AST ALT Alkaline Phosphatase Total Creatine Kinase 64 Total Protein Albumin 3.9 Urine Color Urine Appearance Urine pH Ur Specific [place] Urine Protein Urine Glucose (UA) Urine Ketones Urine Blood Urine Nitrite Ur Leukocyte Esterase Urine RBC Urine WBC Ur Squamous Epith Cells Urine Bacteria Hyaline Casts Granular Casts Urine Mucus Urine Yeast Ur Random Sodium < 20.0 Urine Creatinine 392.45 Blood Type Antibody Screen Crossmatch 07/03/20 06:58 PT INR POC Glucose 125 H Uric Acid Phosphorus Total Bilirubin Direct Bilirubin AST ALT Alkaline Phosphatase Total Creatine Kinase Total Protein Albumin Urine Color Urine Appearance Urine pH Ur Specific [place] Urine Protein Urine Glucose (UA) Urine Ketones Urine Blood Urine Nitrite Ur Leukocyte Esterase Urine RBC Urine WBC Ur Squamous Epith Cells Urine Bacteria Hyaline Casts Granular Casts Urine Mucus Urine Yeast Ur Random Sodium Urine Creatinine Blood Type Antibody Screen Crossmatch Microbiology Microbiology Results: Microbiology 06/30/20 19:12 Blood - Venous Blood Culture - Preliminary No growth after 48 hours. 06/30/20 19:08 Blood - Venous Blood Culture - Preliminary No growth after 48 hours. 07/01/20 06:57 Stool Stool Culture - Preliminary Normal so far. 07/01/20 Unknown Urine Catheterized - Ch Catheter Urine Culture - Final No growth. Assessment & Plan Assessment and plan (1) Acute renal failure: Status: Acute (2) Acute dehydration: Status: Acute (3) GI bleed: Status: Acute (4) Diarrhea: Status: Acute (5) Metabolic acidosis: Status: Acute Assessment and Plan: This is a 70-year-old male past medical history as above incluidng cirrhosis which apears relatively compensated at this time who presents to the hospital after recent discharge complaining of diarrhea as well as poor oral intake found to have severe TREMAYNE and metabolic acidosis 1. Anuric Acute Kidney Injury: desite close to 10 L iters IVF since adm he remains anuri and w/u now very c/w acute urate nephropathy based on UAL 19 and persistent anuria in setting of liver cirrhsois not decompensated ( the latter points away from HRS 1) 2. AGMA/NAGMA: resolved 3. intravascul;ar eff arterial vol depleted on exam REC: HD line per IR and HD today and start allopurinol and if repeat UAL after HD remains > 15 then will give rasburicase; cont tot track UOP; get formal reading on U/S ( verbally no hydro); sero as ordered; can d/c octreotide and IV albumin tomorrow; cont midrdine may need xfer to ICU if does not tolerate HD HDyanmically plan on HD again tomorrow will follow clsoely with team Time Spent With Patient Time: Total time spent is greater than 50% in coordination of care (as documented) at patient's floor/unit and/or counseling patient:
--- NOTE | 2020-07-03 11:40 | HO.RADPN ---
RADIOLOGY Narrative Narrative: Right temporary dialysis catheter insertion with tip in SVC ready for use.
[2020-07-03 12:00] LABS: Glucose, Whole Blood 142 mg/dL (60-115)
[2020-07-03] MEDS: Lidocaine HCl 1 % MPF 5 ML VIAL 10 ML SUBCUT (12:00)
[2020-07-03] MEDS: Heparin Sodium,Porcine 1,000 UNIT/ML VIAL 2400 UNIT IV (12:02)
--- NOTE | 2020-07-03 14:53 | MHC.CM.PN ---
CM received a message from Emperatriz at [facility], patient is active with them for SN and PT. [facility]
--- NOTE | 2020-07-03 15:40 | HO.PM.IMPN ---
Subjective Subjective Date of Service: 07/04/20 Interval History: No acute complaints, BP remains borderline low urinary output 80 mL in last 24 hours is 10 L positive. Creatinine remains elevated. 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 Neck supple no JVD. CVS regular rate rhythm, Respiratory lungs clear to auscultation, no respiratory distress, no wheeze, no rhonchi. Gastrointestinal abdomen distended, nontender, bowel sounds audible, no guarding , no rigidity. Extremities no edema. Back significant perianal rash and stage II lesion Neuro nonfocal , speech clear. Skin no rash Objective Data Current Medications Generic Name Dose Route Start Last Admin Trade Name Freq PRN Reason Stop Dose Admin Hydrocodone Bitart/Acetaminophen 1 tab 07/01/20 02:11 Hydrocodone Bit/Acetam 5/325 Tablet PO Q8H PRN pain Ascorbic Acid 500 mg 07/01/20 09:00 07/03/20 09:08 Ascorbic Acid 500 Mg Tablet PO Not Given DAILY [facility] Atorvastatin Calcium 40 mg 07/01/20 21:00 07/02/20 20:31 Atorvastatin Calcium 40 Mg Tablet PO 40 mg BEDTIME [facility] Administration Heparin Sodium (Porcine) 5,000 unit 07/04/20 16:45 Heparin Sodium,Porcine 5,000 Unit/Ml Vial INTRACATH MOWEFR@1645 [facility] Sodium Chloride 1,000 mls @ 70 mls/hr 07/02/20 12:45 07/03/20 07:45 Ns IVCONT 0 mls/hr .[id number] [facility] Infusion Ceftriaxone Sodium 1 gm/ 50 mls @ 100 mls/hr 07/03/20 16:00 Sodium Chloride IV Q24H [facility] Insulin Human Lispro 0 unit 07/01/20 07:30 07/03/20 12:03 Insulin Lispro 100 Unit/Ml 3 Ml Vial SUBCUT Not Given QIDACHS [facility] Protocol Midodrine 20 mg 07/02/20 15:00 07/03/20 09:09 Midodrine Hcl 10 Mg Tablet PO Not Given TID [facility] Nystatin 1 appl 07/01/20 21:00 07/03/20 09:40 Nystatin Cream 15 Gm Tube TOPICAL 1 appl BID [facility] Administration Protocol Octreotide Acetate 200 mcg 07/01/20 18:00 07/03/20 09:41 Octreotide Acetate 100 Mcg/Ml Ampul SUBCUT 200 mcg Q8H [facility] Administration Omeprazole 40 mg 07/01/20 06:30 07/03/20 05:45 Omeprazole 40 Mg Capsule.Dr PO Not Given BID@0630,1630 [facility] Ondansetron HCl 4 mg 07/01/20 02:11 Ondansetron Hcl 4 Mg/2 Ml Vial IVPUSH Q8H PRN Nausea and Vomiting Pharmacy Consult 1 each 06/30/20 18:08 Consult Rx Perform Med Rec MISCELLANE ONCE PRN Consult order Sodium Chloride 3 ml 07/01/20 02:11 07/03/20 09:09 0.9 % Sodium Chloride Flush 3 Ml Syringe IVFLUSH Not Given QSHIFT [facility] Sucralfate 1 gm 07/01/20 07:30 07/03/20 12:46 Sucralfate Oral Suspension 1 Gm/10 Ml Oral.Susp PO Not Given QIDACHS [facility] Vitamin D 50 mcg 07/01/20 09:00 07/03/20 09:09 Cholecalciferol (Vitamin D3) 25 Mcg Tablet PO Not Given DAILY [facility] Labs CBC & Chem 7: 07/04/20 05:47 07/04/20 05:47 Microbiology Microbiology Results: Microbiology 07/01/20 06:57 Stool Stool Culture - Preliminary Normal so far. 06/30/20 19:12 Blood - Venous Blood Culture - Preliminary No growth after 48 hours. 06/30/20 19:08 Blood - Venous Blood Culture - Preliminary No growth after 48 hours. 07/01/20 Unknown Urine Catheterized - Ch Catheter Urine Culture - Final No growth. Assessment and Plan (1) Acute renal failure: Status: Acute (2) Metabolic acidosis: Status: Acute (3) Essential hypertension: Status: Acute (4) Diarrhea: Status: Acute (5) GI bleed: Status: Acute Assessment and Plan: 70-year-old male past medical history as above who presents to the hospital after recent discharge complaining of diarrhea as well as poor oral intake found to have severe TREMAYNE 1. Acute Kidney Injury patient creatinine remains elevated, no improvement despite aggressive treatment for dehydration and possible hepatorenal syndrome patient noted to have elevated uric acid Level case discussed with Dr. Griffin he is making arrangement for dialysis, due to acute urate nephropathy will discontinue Sandostatin, IV albumin Will follow uric acid level and renal function closely 2. Diarrhea improved, stool studies negative 3. Cirrhosis / asictes (cause of cirrhosis unclear -- pt reports heavy drinking but stopped years ago, Hep C positive but viral load neg) clinically no evidence of SPB, on empiric rocephin, patient is status post hemodialysis will follow clinical course or if noted to have worsening ascites of pain will arrange for paracentesis 4. DM blood sugars stable continue diabetic diet insulin sliding scale continue to hold Lantus 5 Recent episode of Gi bleed h/h trending down, question dilutional, no signs of active bleed , repeat hematocrit at a.m., continue PPI dose reduced to 20 and continue Carafate If further drop in hematocrit will re-consult Gastroenterology Full Code DVT pptx, Mechanical due to previous life threatening GI bleed
[2020-07-03 16:51] LABS: Glucose, Whole Blood 81 mg/dL (60-115)
[2020-07-03] MEDS: Midodrine HCl 10 MG TABLET 20 MG PO ×2 (17:01→21:34)
[2020-07-03] MEDS: allopurinoL 300 MG TABLET 150 MG PO (17:01)
[2020-07-03] MEDS: cefTRIAXone sodium 1 GM in 0.9 % Sodium Chloride 50 ML IV (17:01)
[2020-07-03] MEDS: Sucralfate Oral Suspension 1 GM/10 ML ORAL.SUSP PO ×2 (17:01→21:34)
[2020-07-03] MEDS: 0.9 % Sodium Chloride Flush 3 ML SYRINGE IVFLUSH ×2 (17:02→23:40)
[2020-07-03 17:06] LABS: Uric Acid 8.1 mg/dL (3.4-7.0)
[2020-07-03] MEDS: 0.9 % Sodium Chloride 1,000 ML 70 ML IVCONT (18:12)
[2020-07-03 20:12] LABS: Glucose, Whole Blood 96 mg/dL (60-115)
[2020-07-03] MEDS: Atorvastatin Calcium 40 MG TABLET PO (21:34)
[2020-07-04] VITALS (8 sets, daily range): BP systolic 94–104; BP diastolic 49–56; PULSE 56–59; RESP 16–18; TEMP 36.4–37.1; O2SAT 94–96
[2020-07-04 04:23] LABS: Strep Pneumo Ag urine Not Detected (Not Detected)
--- NOTE | 2020-07-04 04:38 | MHC.PIE ---
P: At 0330, RN entered patient's room and noted patient bleeding around right side of neck. Patient pulled out temporary dialysis catheter. I: Nursing case supervisor notified. Nursing case supervisor at bedside, visualized dialysis catheter completely pulled out, case supervisor applied pressure dressing. I: Hospitalist, Dr. [place] made aware patient pulled out temporary dialysis catheter. E: Patient alert, oriented to person, place, time. Vital signs stable, no new bleeding noted. Patient denies any pain or discomfort at this time, continue to monitor.
[2020-07-04] MEDS: Omeprazole 20 MG CAPSULE.DR PO (06:09)
--- NOTE | 2020-07-04 06:24 | PC.NURSE ---
This RN received telephone order from Dr. Griffin to make patient NPO at this time. Patient educated on new NPO order at this time. AM shift RN will be notified in nurse to nurse report.
[2020-07-04 06:34] LABS: MANUAL DIFF FLAG NO
[2020-07-04 06:49] LABS: Basophils Percent Auto 0.4 % (0-2); Eosinophils Absolute Auto 0.2 X10*3/uL (0.0-0.4); Eosinophils Percent Auto 1.7 % (0-4); Hematocrit 24.3 % (42-52); Hemoglobin 7.6 g/dl (14.0-18.0); Imm Gran Abs Auto 0.03 X10*3/uL (0.00-0.03); Imm Gran Pct Auto 0.3 % (0.0-0.4); Lymphocytes Absolute Auto 0.9 X10*3/uL (1.2-4.9); Lymphocytes Percent Auto 9.5 % (20-40); Mean Corpuscular HGB Conc 31.3 g/dl (31.0-36.0); Mean Corpuscular Hemoglobin 29.2 pg (27.0-33.0); Mean Corpuscular Volume 93.5 fL (80-98); Mean Platelet Volume 11.1 fL (9.4-12.4); Monocytes Absolute Auto 0.8 X10*3/uL (0.1-1.2); Monocytes Percent Auto 8.7 % (2-11); Neutrophils Absolute Auto 7.4 X10*3/uL (2.0-8.3); Neutrophils Percent Auto 79.4 % (45-73); Platelet Count 278 X10*3/uL (160-400); Red Cell Distribution Width 17.9 % (11.0-16.0); White Blood Count 9.3 X10*3/uL (4.8-10.8)
[2020-07-04 07:52] LABS: Glucose, Whole Blood 84 mg/dL (60-115)
[2020-07-04] MEDS: Sucralfate Oral Suspension 1 GM/10 ML ORAL.SUSP PO ×2 (08:26→12:38)
[2020-07-04] MEDS: 0.9 % Sodium Chloride Flush 3 ML SYRINGE IVFLUSH ×2 (08:27→17:20)
[2020-07-04] MEDS: 0.9 % Sodium Chloride 1,000 ML 70 ML IVCONT ×2 (08:29→22:18)
[2020-07-04] MEDS: Cholecalciferol (Vitamin D3) 25 MCG TABLET 50 MCG PO (08:31)
[2020-07-04] MEDS: Midodrine HCl 10 MG TABLET 20 MG PO ×2 (08:32→17:20)
[2020-07-04] MEDS: Nystatin Cream 15 GM TUBE 1 APPL TOPICAL ×2 (08:37→22:11)
[2020-07-04 09:11] LABS: Anion Gap 19 (12-20); Blood Urea Nitrogen 38 mg/dL (9-16); Calcium 8.2 mg/dL (8.4-10.2); Carbon Dioxide 18 mmol/L (22-29); Chloride 104 mmol/L (96-108); Creatinine Clr Calc Pharmacy 14.1; Estimated Glomerular Filt Rate 13; Glucose Random 80 mg/dL (60-115); Potassium 3.5 mmol/L (3.3-5.1); Sodium 137 mmol/L (135-145)
[2020-07-04 09:22] LABS: Glucose-6-Phosphate Dehydrogen Normal
[2020-07-04] MEDS: Ascorbic Acid 500 MG TABLET PO (10:54)
--- NOTE | 2020-07-04 11:13 | MHC.CM.PN ---
Per ROUNDS discussion, Patient is not yet medically cleared for dc (needs HD permacath, on IV Ceftriaxone, NPO today). Home with VNA is the goal for dc and CM will follow for possible need to adjust the dc plan.
[2020-07-04 11:32] LABS: Glucose, Whole Blood 88 mg/dL (60-115)
[2020-07-04 11:56] LABS: Myeloperoxidase Antibody <1.0 AI; Proteinase 3 PR3 Antibodies <1.0 AI
[2020-07-04 12:02] LABS: Uric Acid 9.9 mg/dL (3.4-7.0)
--- NOTE | 2020-07-04 12:39 | PC.NURSE ---
to IR on stretcher with transporter for another permacath placement.
--- NOTE | 2020-07-04 13:34 | MHC.CLN ---
F/U PT IS CURRENTLY NPO PREVIOUS PO INTAKE 75% AVG WHEN DIET ADVANCES; RECOMMEND GLUCERNA BID AND LACIE TO PROMOTE WOUND HEALING
[2020-07-04] MEDS: Lidocaine HCl 1 % MPF 5 ML VIAL 10 ML SUBCUT (14:11)
[2020-07-04] MEDS: Heparin Sodium,Porcine 1,000 UNIT/ML VIAL 4000 UNIT IV (14:12)
[2020-07-04 14:21] LABS: Complement C3 130 mg/dL (82-185)
--- NOTE | 2020-07-04 15:36 | PC.NURSE ---
pT SENT TO us FOR PARENTHESIS ON STRETCHER WITH TRANSPORTER/
[2020-07-04] MEDS: Lidocaine HCl 1 % MPF 5 ML VIAL SUBCUT (15:50)
[2020-07-04 16:33] LABS: MN% 90.5 %; PMN% 9.5 %; WBC Peritoneal Fluid 0.077 X10*3/uL
[2020-07-04 16:35] LABS: RBC Peritoneal Fluid < 0.002 X10*6/uL
[2020-07-04 17:06] LABS: Glucose, Whole Blood 93 mg/dL (60-115)
--- NOTE | 2020-07-04 17:11 | P.PNIM_ITS ---
Subjective Subjective Date of Service: 07/04/20 Interval History: Patient offers no acute complaints awake alert denies abdominal pain, patient pulled out temporary dialysis catheter last evening. 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 Neck supple no JVD. CVS regular rate rhythm, Respiratory lungs clear to auscultation, no respiratory distress, no wheeze, no rhonchi. Gastrointestinal abdomen distended, nontender, bowel sounds audible, no guarding , no rigidity. Extremities no edema. Back significant perianal rash and stage II lesion Neuro nonfocal , speech clear. Skin no rash Objective Data Current Medications Generic Name Dose Route Start Last Admin Trade Name Freq PRN Reason Stop Dose Admin Hydrocodone Bitart/Acetaminophen 1 tab 07/01/20 02:11 Hydrocodone Bit/Acetam 5/325 Tablet PO Q8H PRN pain Ascorbic Acid 500 mg 07/01/20 09:00 07/04/20 10:54 Ascorbic Acid 500 Mg Tablet PO 500 mg DAILY [facility] Administration Atorvastatin Calcium 40 mg 07/01/20 21:00 07/03/20 21:34 Atorvastatin Calcium 40 Mg Tablet PO 40 mg BEDTIME [facility] Administration Heparin Sodium (Porcine) 5,000 unit 07/04/20 16:45 Heparin Sodium,Porcine 5,000 Unit/Ml Vial INTRACATH MOWEFR@1645 [facility] Sodium Chloride 1,000 mls @ 70 mls/hr 07/02/20 12:45 07/04/20 08:29 Ns IVCONT 70 mls/hr .[id number] [facility] Administration Ceftriaxone Sodium 1 gm/ 50 mls @ 100 mls/hr 07/03/20 16:00 07/03/20 17:52 Sodium Chloride IV Infused Q24H [facility] Infusion Insulin Human Lispro 0 unit 07/01/20 07:30 07/04/20 12:37 Insulin Lispro 100 Unit/Ml 3 Ml Vial SUBCUT Not Given QIDACHS [facility] Protocol Midodrine 20 mg 07/02/20 15:00 07/04/20 08:32 Midodrine Hcl 10 Mg Tablet PO 20 mg TID [facility] Administration Nystatin 1 appl 07/01/20 21:00 07/04/20 08:37 Nystatin Cream 15 Gm Tube TOPICAL 1 appl BID [facility] Administration Protocol Omeprazole 20 mg 07/04/20 06:30 07/04/20 06:09 Omeprazole 20 Mg Capsule.Dr PO 20 mg DAILY@0630 [facility] Administration Ondansetron HCl 4 mg 07/01/20 02:11 Ondansetron Hcl 4 Mg/2 Ml Vial IVPUSH Q8H PRN Nausea and Vomiting Pharmacy Consult 1 each 06/30/20 18:08 Consult Rx Perform Med Rec MISCELLANE ONCE PRN Consult order Sodium Chloride 3 ml 07/01/20 02:11 07/04/20 08:27 0.9 % Sodium Chloride Flush 3 Ml Syringe IVFLUSH 3 ml QSHIFT [facility] Administration Sucralfate 1 gm 07/01/20 07:30 07/04/20 12:38 Sucralfate Oral Suspension 1 Gm/10 Ml Oral.Susp PO 1 gm QIDACHS [facility] Administration Vitamin D 50 mcg 07/01/20 09:00 07/04/20 08:31 Cholecalciferol (Vitamin D3) 25 Mcg Tablet PO 50 mcg DAILY [facility] Administration Labs CBC & Chem 7: 07/04/20 05:47 07/04/20 05:47 Microbiology Microbiology Results: Microbiology 07/01/20 06:57 Stool Stool Culture - Final 06/30/20 19:12 Blood - Venous Blood Culture - Preliminary No growth after 48 hours. 06/30/20 19:08 Blood - Venous Blood Culture - Preliminary No growth after 48 hours. 07/01/20 Unknown Urine Catheterized - Ch Catheter Urine Culture - Final No growth. Assessment and Plan (1) Metabolic acidosis: Status: Acute (2) Acute renal failure: Status: Acute (3) Ascites: Status: Acute (4) Type 2 diabetes mellitus with diabetic nephropathy: Status: Acute (5) Hyperlipidemia LDL goal <100: Status: Acute (6) Essential hypertension: Status: Acute (7) GI bleed: Status: Acute Assessment and Plan: 70-year-old male past medical history as above who presents to the hospital after recent discharge complaining of diarrhea as well as poor oral intake found to have severe TREMAYNE 1. Acute Kidney Injury patient creatinine trending down is status post 1 round of hemodialysis to have urate nephropathy, patient pulled out his temporary catheter therefore will order PermCath for continued hemodialysis case discussed with Dr. Griffin, uric acid level improved from 9.2-8.1, will continue to follow uric acid level and renal function closely. Metabolic acidosis due to TREMAYNE, BP remains borderline continue midodrin, hold nodule all and spironolactone. 2. Diarrhea improved, stool studies negative for C diff, stool cultures negative as well. 3. Cirrhosis / asictes (cause of cirrhosis unclear -- pt reports heavy drinking but stopped years ago, Hep C positive but viral load neg) clinically no evidence of SPB, noted to have significant ascites therefore will arrange for paracentesis will send fluid for Gram stain culture sensitivity and cell count patient currently on empiric rocephin. 4. DM blood sugars stable continue diabetic diet insulin sliding scale continue to hold Lantus 5 acute on chronic anemia no active blood loss noted, Recent episode of Gi bleed h/h dropped but stable, no signs of active bleed , recent EGD showed esophageal varices as well as bleeding ulcer that was treated, continue omeprazole 40 mg b.i.d. repeat hematocrit at a.m., continue PPI dose reduced to 20 and continue Carafate Will discuss use of Procrit with Nephrology 6. Stage II ulcer and perianal rash would continue frequent position change nystatin powder and foam dressing to ulcer 3.9 improved from May 2.6. Full Code DVT pptx, Mechanical due to previous life threatening GI bleed
[2020-07-04 17:31] LABS: Basophils Peritoneal Fl 0 %; Eosinophils Peritoneal Fl 0 %; Lymphocyte Peritoneal Fl 38 %; Monocytes Peritoneal Fl 45 %
[2020-07-04 17:32] LABS: BF Shift QC OK YES; Neutrophils Peritoneal Fluid 14 %; Other Peritioneal Fl 3 %
--- NOTE | 2020-07-04 18:18 | PM.PNNEP ---
Subjective Subjective Date of Service: 07/04/20 Interval history: Seen and examined. Events noted Physical Exam Vital Signs: Vital Signs: Last Vital Signs Temp 98.8 F 07/04/20 17:04 Pulse 56 07/04/20 17:20 Resp 18 07/04/20 17:04 BP 104/56 L 07/04/20 17:20 Pulse Ox 96 07/04/20 17:04 Body Mass Index 22.6 Const: General: cooperative and no acute distress Orientation/consciousness: patient oriented x3 Eyes: General: appearance normal, both eyes and all related structures Resp: Effort & Inspection: normal respiratory effort and able to speak in complete sentences Cardio: Rate: regular rate Rhythm: regular rhythm GI: Palpation (GI): Firmness to palpation present (GI) Auscultation: normal bowel sounds Skin: General skin exam: no rashes or lesions noted Neuro: General: patient oriented x3 Cognition (Neuro): normal cognition Extrem: General: Yes normal to inspection and Yes no pedal edema Objective Data Labs CBC & Chem 7: 07/04/20 05:47 07/04/20 05:47 Labs: Laboratory Results - last 24 hr 07/01/20 07/02/20 07/03/20 11:45 22:57 10:07 WBC RBC Hgb Hct MCV MCH MCHC RDW Plt Count MPV Immature Gran % (Auto) Neut % (Auto) Lymph % (Auto) [place] % (Auto) Eos % (Auto) Baso % (Auto) Lymph # (Auto) [place] # (Auto) Eos # (Auto) Baso # (Auto) Abs Immat Gran (auto) Absolute Neuts (auto) Absolute Nucleated RBC Nucleated RBC % (auto) G6PD Normal Sodium Potassium Chloride Carbon Dioxide Anion Gap BUN Creatinine Estim Creat Clear Calc Estimated GFR POC Glucose Random Glucose Uric Acid Calcium Peritoneal WBC Peritoneal RBC Periton Neutrophils Periton Lymphocytes Peritoneal Monocytes Peritoneal Eosinophils Peritoneal Basophils Peritoneal Other Cells Proteinase 3 (PR3) Ab <1.0 Myeloperoxidase Ab <1.0 Complement C3 130 Complement C4 49 Ur Strep pneumoniae Ag Not Detected 07/03/20 07/04/20 07/04/20 19:54 05:47 05:47 WBC 9.3 RBC 2.60 L Hgb 7.6 L Hct 24.3 L MCV 93.5 MCH 29.2 MCHC 31.3 RDW 17.9 H Plt Count 278 MPV 11.1 Immature Gran % (Auto) 0.3 Neut % (Auto) 79.4 H Lymph % (Auto) 9.5 L [place] % (Auto) 8.7 Eos % (Auto) 1.7 Baso % (Auto) 0.4 Lymph # (Auto) 0.9 L [place] # (Auto) 0.8 Eos # (Auto) 0.2 Baso # (Auto) 0.0 Abs Immat Gran (auto) 0.03 Absolute Neuts (auto) 7.4 Absolute Nucleated RBC 0.000 Nucleated RBC % (auto) 0.0 G6PD Sodium 137 Potassium 3.5 Chloride 104 Carbon Dioxide 18 L Anion Gap 19 BUN 38 H Creatinine 4.49 H* Estim Creat Clear Calc 14.1 Estimated GFR 13 POC Glucose 96 Random Glucose 80 D Uric Acid 9.9 H Calcium 8.2 L Peritoneal WBC Peritoneal RBC Periton Neutrophils Periton Lymphocytes Peritoneal Monocytes Peritoneal Eosinophils Peritoneal Basophils Peritoneal Other Cells Proteinase 3 (PR3) Ab Myeloperoxidase Ab Complement C3 Complement C4 Ur Strep pneumoniae Ag 07/04/20 07/04/20 07/04/20 07:44 11:25 16:15 WBC RBC Hgb Hct MCV MCH MCHC RDW Plt Count MPV Immature Gran % (Auto) Neut % (Auto) Lymph % (Auto) [place] % (Auto) Eos % (Auto) Baso % (Auto) Lymph # (Auto) [place] # (Auto) Eos # (Auto) Baso # (Auto) Abs Immat Gran (auto) Absolute Neuts (auto) Absolute Nucleated RBC Nucleated RBC % (auto) G6PD Sodium Potassium Chloride Carbon Dioxide Anion Gap BUN Creatinine Estim Creat Clear Calc Estimated GFR POC Glucose 84 88 Random Glucose Uric Acid Calcium Peritoneal WBC 0.077 Peritoneal RBC < 0.002 Periton Neutrophils 14 Periton Lymphocytes 38 Peritoneal Monocytes 45 Peritoneal Eosinophils 0 Peritoneal Basophils 0 Peritoneal Other Cells 3 Proteinase 3 (PR3) Ab Myeloperoxidase Ab Complement C3 Complement C4 Ur Strep pneumoniae Ag 07/04/20 17:01 WBC RBC Hgb Hct MCV MCH MCHC RDW Plt Count MPV Immature Gran % (Auto) Neut % (Auto) Lymph % (Auto) [place] % (Auto) Eos % (Auto) Baso % (Auto) Lymph # (Auto) [place] # (Auto) Eos # (Auto) Baso # (Auto) Abs Immat Gran (auto) Absolute Neuts (auto) Absolute Nucleated RBC Nucleated RBC % (auto) G6PD Sodium Potassium Chloride Carbon Dioxide Anion Gap BUN Creatinine Estim Creat Clear Calc Estimated GFR POC Glucose 93 Random Glucose Uric Acid Calcium Peritoneal WBC Peritoneal RBC Periton Neutrophils Periton Lymphocytes Peritoneal Monocytes Peritoneal Eosinophils Peritoneal Basophils Peritoneal Other Cells Proteinase 3 (PR3) Ab Myeloperoxidase Ab Complement C3 Complement C4 Ur Strep pneumoniae Ag Microbiology Microbiology Results: Microbiology 07/01/20 06:57 Stool Stool Culture - Final 06/30/20 19:12 Blood - Venous Blood Culture - Preliminary No growth after 48 hours. 06/30/20 19:08 Blood - Venous Blood Culture - Preliminary No growth after 48 hours. 07/01/20 Unknown Urine Catheterized - Ch Catheter Urine Culture - Final No growth. Assessment & Plan Assessment and plan (1) Acute renal failure: Status: Acute (2) Acute dehydration: Status: Acute (3) GI bleed: Status: Acute (4) Diarrhea: Status: Acute (5) Metabolic acidosis: Status: Acute Assessment and Plan: This is a 70-year-old male past medical history as above incluidng cirrhosis which apears relatively compensated at this time who presents to the hospital after recent discharge complaining of diarrhea as well as poor oral intake found to have severe TREMAYNE and metabolic acidosis 1. Anuric Acute Kidney Injury: s/p HD x 1 yesterday and pulled out the HD cath early htis am; w/u thus far suggests acute urate nephropathy but would need a kidney Bx to make a defiiitver Dx BUT if rtenal func and UOP imporve after 2 HD treatments this mat be a dx by exclusion; no rasburicase given bc UAL has decreassed with acute HD and allupurinol 2. AGMA/NAGMA: resolved 3. intravascular eff arterial vol depleted on exam with incr ascities REC: IR to repalce HD cath ( permcath this time) and HD today; cont alupurinol; track UOP/renal func; consider large vol paracenmtesis; avoid NToxins will follow clsoely with team Time Spent With Patient Time: Total time spent is greater than 50% in coordination of care (as documented) at patient's floor/unit and/or counseling patient:
[2020-07-04 21:59] LABS: Glucose, Whole Blood 70 mg/dL (60-115)
[2020-07-05] VITALS (8 sets, daily range): BP systolic 86–100; BP diastolic 53–58; PULSE 57–64; RESP 16–20; TEMP 36.3–37.2; O2SAT 94–98
[2020-07-05] MEDS: Omeprazole 20 MG CAPSULE.DR PO (06:07)
[2020-07-05 06:58] LABS: MANUAL DIFF FLAG NO
[2020-07-05 07:02] LABS: Basophils Percent Auto 0.3 % (0-2); Eosinophils Absolute Auto 0.2 X10*3/uL (0.0-0.4); Eosinophils Percent Auto 1.6 % (0-4); Hematocrit 24.6 % (42-52); Hemoglobin 7.6 g/dl (14.0-18.0); Imm Gran Abs Auto 0.04 X10*3/uL (0.00-0.03); Imm Gran Pct Auto 0.4 % (0.0-0.4); Lymphocytes Absolute Auto 0.9 X10*3/uL (1.2-4.9); Lymphocytes Percent Auto 9.9 % (20-40); Mean Corpuscular HGB Conc 30.9 g/dl (31.0-36.0); Mean Corpuscular Hemoglobin 29.1 pg (27.0-33.0); Mean Corpuscular Volume 94.3 fL (80-98); Mean Platelet Volume 11.3 fL (9.4-12.4); Monocytes Absolute Auto 0.8 X10*3/uL (0.1-1.2); Monocytes Percent Auto 8.5 % (2-11); Neutrophils Absolute Auto 7.3 X10*3/uL (2.0-8.3); Neutrophils Percent Auto 79.3 % (45-73); Platelet Count 244 X10*3/uL (160-400); Red Blood Count 2.61 X10*6/uL (4.60-5.80); White Blood Count 9.2 X10*3/uL (4.8-10.8)
[2020-07-05 07:38] LABS: Anion Gap 18 (12-20); Blood Urea Nitrogen 19 mg/dL (9-16); Calcium 8.5 mg/dL (8.4-10.2); Carbon Dioxide 18 mmol/L (22-29); Chloride 104 mmol/L (96-108); Creatinine Clr Calc Pharmacy 19.2; Estimated Glomerular Filt Rate 19; Glucose Random 63 mg/dL (60-115); Potassium 3.5 mmol/L (3.3-5.1); Sodium 136 mmol/L (135-145)
[2020-07-05 07:59] LABS: Glucose, Whole Blood 62 mg/dL (60-115)
[2020-07-05] MEDS: Sucralfate Oral Suspension 1 GM/10 ML ORAL.SUSP PO ×3 (08:15→15:53)
[2020-07-05] MEDS: HYDROcodone Bit/Acetam 5/325 TABLET 1 TAB PO (08:16)
[2020-07-05] MEDS: Ascorbic Acid 500 MG TABLET PO (08:16)
[2020-07-05] MEDS: Midodrine HCl 10 MG TABLET 20 MG PO ×2 (08:17→14:31)
[2020-07-05] MEDS: Nystatin Cream 15 GM TUBE 1 APPL TOPICAL (08:17)
[2020-07-05] MEDS: Cholecalciferol (Vitamin D3) 25 MCG TABLET 50 MCG PO (08:17)
[2020-07-05 11:26] LABS: Glucose, Whole Blood 71 mg/dL (60-115)
[2020-07-05] MEDS: 0.9 % Sodium Chloride 1,000 ML 70 ML IVCONT (12:22)
--- NOTE | 2020-07-05 13:00 | P.PNIM_ITS ---
Subjective Subjective Date of Service: 07/06/20 Interval History: Patient is sleepy, lethargic this morning, and noted to have low blood pressure, but answering questions appropriately, denies lightheadedness dizziness, no nausea, no vomiting continue to have decreased urine output. 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 Neck supple no JVD. CVS regular rate rhythm, Respiratory lungs clear to auscultation, no respiratory distress, no wheeze, no rhonchi. Gastrointestinal abdomen distended, soft, nontender, bowel sounds audible, no guarding , no rigidity. Extremities no edema. Back significant perianal rash and stage II lesion Neuro nonfocal , speech clear. Skin no rash Objective Data Current Medications Generic Name Dose Route Start Last Admin Trade Name Freq PRN Reason Stop Dose Admin Hydrocodone Bitart/Acetaminophen 1 tab 07/01/20 02:11 07/05/20 08:16 Hydrocodone Bit/Acetam 5/325 Tablet PO 1 tab Q8H PRN Administration pain Ascorbic Acid 500 mg 07/01/20 09:00 07/05/20 08:16 Ascorbic Acid 500 Mg Tablet PO 500 mg DAILY ROJAS Administration Atorvastatin Calcium 40 mg 07/01/20 21:00 07/04/20 21:55 Atorvastatin Calcium 40 Mg Tablet PO Not Given BEDTIME [facility] Heparin Sodium (Porcine) 5,000 unit 07/04/20 16:45 07/04/20 18:18 Heparin Sodium,Porcine 5,000 Unit/Ml Vial INTRACATH Not Given [id number]@1645 [facility] Ceftriaxone Sodium 1 gm/ 50 mls @ 100 mls/hr 07/03/20 16:00 07/04/20 21:55 Sodium Chloride IV Not Given Q24H [facility] Sodium Chloride 1,000 mls @ 999 mls/hr 07/05/20 13:00 Ns IV 07/05/20 14:00 .Q1H1M [facility] Insulin Human Lispro 0 unit 07/01/20 07:30 07/05/20 11:37 Insulin Lispro 100 Unit/Ml 3 Ml Vial [facility]BCUT [facility] Protocol Midodrine 20 mg 07/02/20 15:00 07/05/20 08:17 Midodrine Hcl 10 Mg Tablet PO 20 mg TID [facility] Administration Nystatin 1 appl 07/01/20 21:00 07/05/20 08:17 Nystatin Cream 15 Gm Tube TOPICAL 1 appl BID [facility] Administration Protocol Omeprazole 20 mg 07/04/20 06:30 07/05/20 06:07 Omeprazole 20 Mg Capsule. PO 20 mg DAILY@0630 [facility] Administration Ondansetron HCl 4 mg 07/01/20 02:11 Ondansetron Hcl 4 Mg/2 Ml Vial IVPUSH Q8H PRN Nausea and Vomiting Pharmacy Consult 1 each 06/30/20 18:08 Consult Rx Perform Med Rec MISCELLANE ONCE PRN Consult order Sodium Chloride 3 ml 07/01/20 02:11 07/05/20 08:11 0.9 % Sodium Chloride Flush 3 Ml Syringe IVFLUSH Not Given QSHIFT [facility] Sucralfate 1 gm 07/01/20 07:30 07/05/20 12:25 Sucralfate Oral Suspension 1 Gm/10 Ml Oral.Susp PO 1 [facility]m [facility] Administration Vitamin D 50 mcg 07/01/20 09:00 07/05/20 08:17 Cholecalciferol (Vitamin D3) 25 Mcg Tablet PO 50 mcg DAILY [facility] Administration Labs CBC & Chem 7: 07/06/20 04:52 07/06/20 04:52 Microbiology Microbiology Results: Microbiology 07/04/20 16:15 Paracentesis Fluid Gram Stain - Final 07/04/20 16:15 Paracentesis Fluid Routine Culture - Preliminary No growth to date. 07/04/20 16:15 Paracentesis Fluid Anaerobic Culture - Preliminary No growth to date. 07/01/20 06:57 Stool Stool Culture - Final 06/30/20 19:12 Blood - Venous Blood Culture - Preliminary No growth after 48 hours. 06/30/20 19:08 Blood - Venous Blood Culture - Preliminary No growth after 48 hours. 07/01/20 Unknown Urine Catheterized - Ch Catheter Urine Culture - Final No growth. Assessment and Plan (1) Metabolic acidosis: Status: Acute (2) Acute renal failure: Status: Acute (3) Ascites: Status: Acute (4) Type 2 diabetes mellitus with diabetic nephropathy: Status: Acute (5) Essential hypertension: Status: Acute (6) Hyperlipidemia LDL goal <100: Status: Acute Assessment and Plan: 70-year-old male past medical history as above who presents to the hospital after recent discharge complaining of diarrhea as well as poor oral intake found to have severe TREMAYNE 1. Acute Kidney Injury patient creatinine trending down is status post 2 round of hemodialysis due to urate nephropathy, patient pulled out his temporary catheter therefore PermCath placed Hold dialysis today, case discussed with Dr. Griffin, uric acid level improved from 19.2-9.9, will continue to follow uric acid level and renal function closely. Metabolic acidosis due to TREMAYNE is stable, BP low today will give IV normal saline bolus continue midodrin, and hold nadolol and spironolactone. 2. Diarrhea improved, stool studies negative for C diff, stool cultures negative as well. 3. Cirrhosis / asictes (cause of cirrhosis unclear -- pt reports heavy drinking but stopped years ago, Hep C positive but viral load neg) Patient is status post paracentesis 07/04, 2.5 L of clear yellowish fluid was drained, 4. DM blood sugars stable less than 100, continue diabetic diet insulin sliding scale continue to hold Lantus 5 acute on chronic anemia no active blood loss noted, Recent episode of Gi bleed h/h dropped but stable, no signs of active bleed , recent EGD showed esophageal varices as well as bleeding ulcer that was treated, continue omeprazole repeat hematocrit remains low but stable,continue PPI and Carafate Will discuss use of Procrit with Nephrology 6. Stage II ulcer and perianal rash would continue frequent position change nystatin powder and foam dressing to ulcer will start Glucerna 7. Weakness and lethargy with low blood pressure likely due to use of narcotics and undergoing dialysis yesterday Will give IV fluid follow blood pressure closely and reduce dose of narcotic. 8. Severe malnutrition will place patient on Ensure b.i.d. and Brent to promote wound healing Full Code DVT pptx, Mechanical due to previous life threatening GI bleed
[2020-07-05] MEDS: 0.9 % Sodium Chloride 1,000 ML 999 ML IV (13:09)
[2020-07-05] MEDS: cefTRIAXone sodium 1 GM in 0.9 % Sodium Chloride 50 ML IV (15:50)
--- NOTE | 2020-07-05 16:16 | PM.PNNEP ---
Subjective Subjective Date of Service: 07/05/20 Interval history: Seen and examined. Events noted Physical Exam Vital Signs: Vital Signs: Last Vital Signs Temp 97.9 F 07/05/20 15:29 Pulse 63 07/05/20 15:29 Resp 18 07/05/20 15:29 BP 96/53 L 07/05/20 15:29 Pulse Ox 95 07/05/20 15:29 Body Mass Index 22.6 Const: General: cooperative and no acute distress Orientation/consciousness: patient oriented x3 Eyes: General: appearance normal, both eyes and all related structures Resp: Effort & Inspection: normal respiratory effort and able to speak in complete sentences Cardio: Rate: regular rate Rhythm: regular rhythm GI: Palpation (GI): Firmness to palpation present (GI) Auscultation: normal bowel sounds Skin: General skin exam: no rashes or lesions noted Neuro: General: patient oriented x3 Cognition (Neuro): normal cognition Extrem: General: Yes normal to inspection and Yes no pedal edema Objective Data Labs CBC & Chem 7: 07/05/20 06:12 07/05/20 06:12 Labs: Laboratory Results - last 24 hr 07/04/20 07/04/20 07/04/20 16:15 17:01 21:55 WBC RBC Hgb Hct MCV MCH MCHC RDW Plt Count MPV Immature Gran % (Auto) Neut % (Auto) Lymph % (Auto) [place] % (Auto) Eos % (Auto) Baso % (Auto) Lymph # (Auto) [place] # (Auto) Eos # (Auto) Baso # (Auto) Abs Immat Gran (auto) Absolute Neuts (auto) Absolute Nucleated RBC Nucleated RBC % (auto) Sodium Potassium Chloride Carbon Dioxide Anion Gap BUN Creatinine Estim Creat Clear Calc Estimated GFR POC Glucose 93 70 Random Glucose Calcium Peritoneal WBC 0.077 Peritoneal RBC < 0.002 Periton Neutrophils 14 Periton Lymphocytes 38 Peritoneal Monocytes 45 Peritoneal Eosinophils 0 Peritoneal Basophils 0 Peritoneal Other Cells 3 07/05/20 07/05/20 07/05/20 06:12 06:12 07:56 WBC 9.2 RBC 2.61 L Hgb 7.6 L Hct 24.6 L MCV 94.3 MCH 29.1 MCHC 30.9 L RDW 18.0 H Plt Count 244 MPV 11.3 Immature Gran % (Auto) 0.4 Neut % (Auto) 79.3 H Lymph % (Auto) 9.9 L [place] % (Auto) 8.5 Eos % (Auto) 1.6 Baso % (Auto) 0.3 Lymph # (Auto) 0.9 L [place] # (Auto) 0.8 Eos # (Auto) 0.2 Baso # (Auto) 0.0 Abs Immat Gran (auto) 0.04 H Absolute Neuts (auto) 7.3 Absolute Nucleated RBC 0.000 Nucleated RBC % (auto) 0.0 Sodium 136 Potassium 3.5 Chloride 104 Carbon Dioxide 18 L Anion Gap 18 BUN 19 H Creatinine 3.30 H Estim Creat Clear Calc 19.2 Estimated GFR 19 POC Glucose 62 Random Glucose 63 Calcium 8.5 Peritoneal WBC Peritoneal RBC Periton Neutrophils Periton Lymphocytes Peritoneal Monocytes Peritoneal Eosinophils Peritoneal Basophils Peritoneal Other Cells 07/05/20 11:16 WBC RBC Hgb Hct MCV MCH MCHC RDW Plt Count MPV Immature Gran % (Auto) Neut % (Auto) Lymph % (Auto) [place] % (Auto) Eos % (Auto) Baso % (Auto) Lymph # (Auto) [place] # (Auto) Eos # (Auto) Baso # (Auto) Abs Immat Gran (auto) Absolute Neuts (auto) Absolute Nucleated RBC Nucleated RBC % (auto) Sodium Potassium Chloride Carbon Dioxide Anion Gap BUN Creatinine Estim Creat Clear Calc Estimated GFR POC Glucose 71 Random Glucose Calcium Peritoneal WBC Peritoneal RBC Periton Neutrophils Periton Lymphocytes Peritoneal Monocytes Peritoneal Eosinophils Peritoneal Basophils Peritoneal Other Cells Microbiology Microbiology Results: Microbiology 07/04/20 16:15 Paracentesis Fluid Gram Stain - Final 07/04/20 16:15 Paracentesis Fluid Routine Culture - Preliminary No growth to date. 07/04/20 16:15 Paracentesis Fluid Anaerobic Culture - Preliminary No growth to date. 07/01/20 06:57 Stool Stool Culture - Final 06/30/20 19:12 Blood - Venous Blood Culture - Preliminary No growth after 48 hours. 06/30/20 19:08 Blood - Venous Blood Culture - Preliminary No growth after 48 hours. 07/01/20 Unknown Urine Catheterized - Ch Catheter Urine Culture - Final No growth. Assessment & Plan Assessment and plan (1) Acute renal failure: Status: Acute (2) Acute dehydration: Status: Acute (3) GI bleed: Status: Acute (4) Diarrhea: Status: Acute (5) Metabolic acidosis: Status: Acute Assessment and Plan: This is a 70-year-old male past medical history as above incluidng cirrhosis which apears relatively compensated at this time who presents to the hospital after recent discharge complaining of diarrhea as well as poor oral intake found to have severe TREMAYNE and metabolic acidosis 1. Anuric Acute Kidney Injury: s/p HD started 07/03 and recieved 2nd HD yesterday ( has new Pcath as prior non-tunnelc ath fell out) w/u thus far suggests acute urate nephropathy but would need a kidney Bx to make a defiiitver Dx BUT if renal func and UOP imporve after 2 HD treatments this mat be a dx by exclusion; no rasburicase given bc UAL has decreassed with acute HD and allupurinol 2. AGMA/NAGMA: resolved 3. intravascular eff arterial vol depleted on exam with incr ascities REC: next HD tuesday and consider kid ey Bx early next week to make definitive Dx; cont alupurinol if UA remains elevated; track UOP/renal func;; avoid NToxins will follow clsoely with team Time Spent With Patient Time: Total time spent is greater than 50% in coordination of care (as documented) at patient's floor/unit and/or counseling patient:
[2020-07-05 16:23] LABS: Glucose, Whole Blood 65 mg/dL (60-115)
[2020-07-05 16:40] LABS: Uric Acid 5.2 mg/dL (3.4-7.0)
[2020-07-05 19:57] LABS: Glucose, Whole Blood 66 mg/dL (60-115)
[2020-07-06] VITALS (12 sets, daily range): BP systolic 81–102; BP diastolic 42–59; PULSE 60–69; RESP 16–20; TEMP 36.6–38.2; O2SAT 93–97
[2020-07-06] MEDS: Nystatin Cream 15 GM TUBE 1 APPL TOPICAL ×3 (00:02→21:20)
[2020-07-06] MEDS: Midodrine HCl 10 MG TABLET 20 MG PO ×3 (04:29→21:17)
[2020-07-06] MEDS: Lactated Ringers 500 ML IVCONT (04:31)
--- NOTE | 2020-07-06 05:06 | P.EN_ITS ---
Event Note Date of Service: 07/06/20 Event Note: Patient refuses midodrine and earlier in the evening, developed hy potesnion but also fever. work up for sepsis. 500 cc of LR given. will monitor bp closely
[2020-07-06 05:13] LABS: MANUAL DIFF FLAG NO
[2020-07-06 05:16] LABS: Basophils Percent Auto 0.3 % (0-2); Eosinophils Absolute Auto 0.2 X10*3/uL (0.0-0.4); Eosinophils Percent Auto 1.7 % (0-4); Hemoglobin 7.9 g/dl (14.0-18.0); Imm Gran Abs Auto 0.04 X10*3/uL (0.00-0.03); Imm Gran Pct Auto 0.4 % (0.0-0.4); Lymphocytes Absolute Auto 1.1 X10*3/uL (1.2-4.9); Lymphocytes Percent Auto 10.9 % (20-40); Mean Corpuscular HGB Conc 30.4 g/dl (31.0-36.0); Mean Corpuscular Hemoglobin 29.4 pg (27.0-33.0); Mean Corpuscular Volume 96.7 fL (80-98); Mean Platelet Volume 10.7 fL (9.4-12.4); Monocytes Absolute Auto 0.8 X10*3/uL (0.1-1.2); Monocytes Percent Auto 8.4 % (2-11); Neutrophils Absolute Auto 7.8 X10*3/uL (2.0-8.3); Neutrophils Percent Auto 78.3 % (45-73); Platelet Count 232 X10*3/uL (160-400); Red Blood Count 2.69 X10*6/uL (4.60-5.80); Red Cell Distribution Width 18.5 % (11.0-16.0)
[2020-07-06 05:34] LABS: Lactic Acid 1.2 mmol/L (0.5-2.0)
[2020-07-06 05:40] LABS: Uric Acid 6.3 mg/dL (3.4-7.0)
[2020-07-06 05:42] LABS: Anion Gap 20 (12-20); Blood Urea Nitrogen 26 mg/dL (9-16); Calcium 8.7 mg/dL (8.4-10.2); Carbon Dioxide 15 mmol/L (22-29); Chloride 106 mmol/L (96-108); Creatinine Clr Calc Pharmacy 13.7; Estimated Glomerular Filt Rate 13; Glucose Random 58 mg/dL (60-115); Potassium 4.1 mmol/L (3.3-5.1); Sodium 137 mmol/L (135-145)
[2020-07-06] MEDS: Omeprazole 20 MG CAPSULE.DR PO (06:01)
[2020-07-06 06:15] LABS: Glucose, Whole Blood 134 mg/dL (60-115)
--- NOTE | 2020-07-06 07:11 | MHC.PIE ---
p - bp 81/42 denies dizziness had refused earlier hs midodrine. i - dr. hoyos notified & midodrine 10mg po given & LR 500ml iv bolus given e - recheck of bp 99/54 p - temp 100.8 i - call to dr. hoyos & orders recd for bc x2 - done cool cloth applied e - continue to monitor p - glu low critical by lab 85 i - unable to eat pbj sandwich. took some apple sause notified dr. hoyos orders rec'd e - 1 amp d50 IV given as ordered, recheck poc 134
[2020-07-06 07:26] LABS: Glucose, Whole Blood 124 mg/dL (60-115)
[2020-07-06] MEDS: Sucralfate Oral Suspension 1 GM/10 ML ORAL.SUSP PO (09:08)
[2020-07-06] MEDS: Ascorbic Acid 500 MG TABLET PO (09:08)
[2020-07-06] MEDS: Cholecalciferol (Vitamin D3) 25 MCG TABLET 50 MCG PO (09:08)
[2020-07-06] MEDS: ondansetron HCL 4 MG/2 ML VIAL IVPUSH (09:08)
[2020-07-06] MEDS: 0.9 % Sodium Chloride Flush 3 ML SYRINGE IVFLUSH (09:09)
[2020-07-06 11:21] LABS: Legionella Ag Urine Not Detected (Not Detected)
[2020-07-06 11:32] LABS: Glucose, Whole Blood 109 mg/dL (60-115)
--- NOTE | 2020-07-06 14:08 | P.PNIM_ITS ---
Subjective Subjective Date of Service: 07/07/20 Interval History: Patient remains very weak lethargic although awake and answering questions appropriately, decreased by mouth intake, BP remains low. Overnight noted to have blood pressures in low 80s therefore required IV fluid bolus low blood sugar of 58 required D50 current blood sugar has improved to 124. 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 Physical Exam Vital Signs: Vital Signs: Last Vital Signs Temp 97.9 F 07/06/20 11:08 Pulse 66 07/06/20 11:08 Resp 18 07/06/20 11:08 BP 90/48 L 07/06/20 11:08 Pulse Ox 93 07/06/20 11:08 Body Mass Index 22.6 General frail looking, lethargic, awake alert, no acute distress. Neck supple no JVD. CVS regular rate rhythm, Respiratory lungs clear to auscultation, no respiratory distress, no wheeze, no rhonchi. Gastrointestinal abdomen distended, soft, nontender, bowel sounds audible, no guarding , no rigidity. Extremities no edema. Back significant perianal rash and stage II lesion Neuro nonfocal , speech clear. Skin no rash Objective Data Current Medications Generic Name Dose Route Start Last Admin Trade Name Freq PRN Reason Stop Dose Admin Ascorbic Acid 500 mg 07/01/20 09:00 07/06/20 09:08 Ascorbic Acid 500 Mg Tablet PO 500 mg DAILY ROJAS Administration Atorvastatin Calcium 40 mg 07/01/20 21:00 07/06/20 00:01 Atorvastatin Calcium 40 Mg Tablet PO Not Given BEDTIME [facility] Heparin Sodium (Porcine) 5,000 unit 07/04/20 16:45 07/04/20 18:18 Heparin Sodium,Porcine 5,000 Unit/Ml Vial INTRACATH Not Given [id number]@1645 [facility] Ceftriaxone Sodium 1 gm/ 50 mls @ 100 mls/hr 07/03/20 16:00 07/05/20 17:28 Sodium Chloride IV Infused Q24H [facility] Infusion Dextrose/Lactated Ringer's 1,000 mls @ 80 mls/hr 07/06/20 14:15 [id number] [id number] [facility] Insulin Human Lispro 0 unit 07/01/20 07:30 07/06/20 12:29 Insulin Lispro 100 Unit/Ml 3 Ml Vial SUBCUT Not Given QIDACHS [facility] Protocol Midodrine 20 mg 07/02/20 15:00 07/06/20 04:29 Midodrine Hcl 10 Mg Tablet PO 20 mg TID [facility] Administration Nystatin 1 appl 07/01/20 21:00 07/06/20 09:18 Nystatin Cream 15 Gm Tube TOPICAL 1 appl BID [facility] Administration Protocol Omeprazole 20 mg 07/04/20 06:30 07/06/20 06:01 Omeprazole 20 Mg Capsule. PO 20 mg DAILY@0630 [facility] Administration Ondansetron HCl 4 mg 07/01/20 02:11 07/06/20 09:08 Ondansetron Hcl 4 Mg/2 Ml Vial IVPUSH 4 mg Q8H PRN Administration Nausea and Vomiting Oxycodone HCl 2.5 mg 07/05/20 13:12 Oxycodone Hcl Immed Release 5 Mg Tablet PO Q8H PRN Pain, Severe (Pain Scale 7-10) Pharmacy Consult 1 each 06/30/20 18:08 Consult Rx Perform Med Rec MISCELLANE ONCE PRN Consult order Sodium Chloride 3 ml 07/01/20 02:11 07/06/20 09:09 0.9 % Sodium Chloride Flush 3 Ml Syringe IVFLUSH 3 ml QSHIFT [facility] Administration Sucralfate 1 gm 07/01/20 07:30 07/06/20 13:25 Sucralfate Oral Suspension 1 Gm/10 Ml Oral.Susp PO Not [facility] Vitamin D 50 mcg 07/01/20 09:00 07/06/20 09:08 Cholecalciferol (Vitamin D3) 25 Mcg Tablet PO 50 mcg DAILY [facility] Administration Labs CBC & Chem 7: 07/06/20 04:52 07/07/20 05:24 Microbiology Microbiology Results: Microbiology 07/04/20 16:15 Paracentesis Fluid Gram Stain - Final 07/04/20 16:15 Paracentesis Fluid Routine Culture - Final No growth after 2 days 07/04/20 16:15 Paracentesis Fluid Anaerobic Culture - Preliminary No growth to date. 06/30/20 19:12 Blood - Venous Blood Culture - Final No growth after 5 days. 06/30/20 19:08 Blood - Venous Blood Culture - Final No growth after 5 days. 07/01/20 06:57 Stool Stool Culture - Final 07/01/20 Unknown Urine Catheterized - Ch Catheter Urine Culture - Final No growth. Assessment and Plan (1) Acute renal failure: Status: Acute (2) Metabolic acidosis: Status: Acute (3) Adult failure to thrive: Status: Acute (4) Ascites: Status: Acute (5) Hyperlipidemia LDL goal <100: Status: Acute (6) Essential hypertension: Status: Acute (7) Severe malnutrition: Status: Acute Assessment and Plan: 70-year-old male past medical history as above who presents to the hospital after recent discharge complaining of diarrhea as well as poor oral intake found to have severe TREMAYNE 1. Acute Kidney Injury question related to urate nephropathy/hepatorenal syndrom e patient treated with IV fluids, IV albumin, IV patient creatinine trended down is status post 2 round of hemodialysis , skipped hemodialysis yesterday, noted to have bump in creatinine today from 3.3-4.6 Patient will undergo hemodialysis tomorrow case discussed with Dr. Griffin he recommend to obtain neurology consultation since patient has persistent low urine output uric acid level improved from 19.2-9.9, will continue to follow uric acid level and renal function closely. Metabolic acidosis due to TREMAYNE is stable, BP remains low will resume IV fluid, continue midodrin, and hold nadolol and spironolactone. 2. Diarrhea resolved stool studies negative for C diff, stool cultures negative as well. 3. Cirrhosis / asictes (cause of cirrhosis unclear -- pt reports heavy drinking but stopped years ago, Hep C positive but viral load neg) Patient is status post paracentesis 07/04, 2.5 L of clear yellowish fluid was drained, fluid cell count not suggestive of SBP will DC IV antibiotic 4. DM blood sugars low will change diet to regular and hold Lantus 5 acute on chronic anemia no active blood loss noted, Recent episode of Gi bleed h/h dropped but stable, no signs of active bleed , recent EGD showed esophageal varices as well as bleeding ulcer that was treated, continue omeprazole repeat hematocrit remains low but stable,continue PPI and Carafate Will discuss use of Procrit with Nephrology 6. Stage II ulcer and perianal rash would continue frequent position change nystatin powder and foam dressing to ulcer will start Glucerna 7. Weakness and lethargy with low blood pressure likely due to use of narcotics and undergoing dialysis yesterday Will give IV fluid follow blood pressure closely and reduce dose of narcotic. 8. Severe malnutrition cont Ensure b.i.d. and Brent to promote wound healing Full Code DVT pptx, Mechanical due to previous life threatening GI bleed
[2020-07-06] MEDS: Dextrose 5 % and Lactated Ring 1,000 ML 80 ML IVCONT (15:03)
[2020-07-06 16:34] LABS: Glucose, Whole Blood 117 mg/dL (60-115)
[2020-07-06] MEDS: cefTRIAXone sodium 1 GM in 0.9 % Sodium Chloride 50 ML IV (16:51)
--- NOTE | 2020-07-06 19:07 | P.PNNP_ITS ---
Subjective Subjective Date of Service: 07/06/20 Interval history: Seen and examined. Events noted Physical Exam Vital Signs: Vital Signs: Last Vital Signs Temp 97.9 F 07/06/20 15:52 Pulse 69 07/06/20 16:50 Resp 18 07/06/20 15:52 BP 96/56 L 07/06/20 16:50 Pulse Ox 95 07/06/20 15:52 Body Mass Index 22.6 Const: General: cooperative and no acute distress Orien tation/consciousness: patient oriented x3 Eyes: General: appearance normal, both eyes and all related structures Resp: Effort & Inspection: normal respiratory effort and able to speak in complete sentences Cardio: Rate: regular rate Rhythm: regular rhythm GI: Palpation (GI): Firmness to palpation present (GI) Auscultation: normal bowel sounds Skin: General skin exam: no rashes or lesions noted Neuro: General: patient oriented x3 Cognition (Neuro): normal cognition Extrem: General: Yes normal to inspection and Yes no pedal edema Objective Data Labs CBC & Chem 7: 07/06/20 04:52 07/06/20 04:52 Labs: Laboratory Results - last 24 hr 07/02/20 07/05/20 07/06/20 Unknown 19:46 04:52 WBC RBC Hgb Hct MCV MCH MCHC RDW Plt Count MPV Immature Gran % (Auto) Neut % (Auto) Lymph % (Auto) [place] % (Auto) Eos % (Auto) Baso % (Auto) Lymph # (Auto) [place] # (Auto) Eos # (Auto) Baso # (Auto) Abs Immat Gran (auto) Absolute Neuts (auto) Absolute Nucleated RBC Nucleated RBC % (auto) Sodium 137 Potassium 4.1 Chloride 106 Carbon Dioxide 15 L Anion Gap 20 BUN 26 H Creatinine 4.63 H* Estim Creat Clear Calc 13.7 Estimated GFR 13 POC Glucose 66 Random Glucose 58 L* Lactic Acid Uric Acid Calcium 8.7 Ur L.pneumophila Ag Not Detected 07/06/20 07/06/20 07/06/20 04:52 04:52 04:52 WBC 10.0 RBC 2.69 L Hgb 7.9 L Hct 26.0 L MCV 96.7 MCH 29.4 MCHC 30.4 L RDW 18.5 H Plt Count 232 MPV 10.7 Immature Gran % (Auto) 0.4 Neut % (Auto) 78.3 H Lymph % (Auto) 10.9 L [place] % (Auto) 8.4 Eos % (Auto) 1.7 Baso % (Auto) 0.3 Lymph # (Auto) 1.1 L [place] # (Auto) 0.8 Eos # (Auto) 0.2 Baso # (Auto) 0.0 Abs Immat Gran (auto) 0.04 H Absolute Neuts (auto) 7.8 Absolute Nucleated RBC 0.000 Nucleated RBC % (auto) 0.0 Sodium Potassium Chloride Carbon Dioxide Anion Gap BUN Creatinine Estim Creat Clear Calc Estimated GFR POC Glucose Random Glucose Lactic Acid 1.2 Uric Acid 6.3 Calcium Ur L.pneumophila Ag 07/06/20 07/06/20 07/06/20 06:12 07:13 11:23 WBC RBC Hgb Hct MCV MCH MCHC RDW Plt Count MPV Immature Gran % (Auto) Neut % (Auto) Lymph % (Auto) [place] % (Auto) Eos % (Auto) Baso % (Auto) Lymph # (Auto) [place] # (Auto) Eos # (Auto) Baso # (Auto) Abs Immat Gran (auto) Absolute Neuts (auto) Absolute Nucleated RBC Nucleated RBC % (auto) Sodium Potassium Chloride Carbon Dioxide Anion Gap BUN Creatinine Estim Creat Clear Calc Estimated GFR POC Glucose 134 H 124 H 109 Random Glucose Lactic Acid Uric Acid Calcium Ur L.pneumophila Ag 07/06/20 16:20 WBC RBC Hgb Hct MCV MCH MCHC RDW Plt Count MPV Immature Gran % (Auto) Neut % (Auto) Lymph % (Auto) [place] % (Auto) Eos % (Auto) Baso % (Auto) Lymph # (Auto) [place] # (Auto) Eos # (Auto) Baso # (Auto) Abs Immat Gran (auto) Absolute Neuts (auto) Absolute Nucleated RBC Nucleated RBC % (auto) Sodium Potassium Chloride Carbon Dioxide Anion Gap BUN Creatinine Estim Creat Clear Calc Estimated GFR POC Glucose 117 H Random Glucose Lactic Acid Uric Acid Calcium Ur L.pneumophila Ag Microbiology Microbiology Results: Microbiology 07/04/20 16:15 Paracentesis Fluid Gram Stain - Final 07/04/20 16:15 Paracentesis Fluid Routine Culture - Final No growth after 2 days 07/04/20 16:15 Paracentesis Fluid Anaerobic Culture - Preliminary No growth to date. 06/30/20 19:12 Blood - Venous Blood Culture - Final No growth after 5 days. 06/30/20 19:08 Blood - Venous Blood Culture - Final No growth after 5 days. 07/01/20 06:57 Stool Stool Culture - Final 07/01/20 Unknown Urine Catheterized - Ch Catheter Urine Culture - Final No growth. Assessment & Plan Assessment and plan (1) Acute renal failure: Status: Acute (2) Acute dehydration: Status: Acute (3) GI bleed: Status: Acute (4) Diarrhea: Status: Acute (5) Metabolic acidosis: Status: Acute Assessment and Plan: This is a 70-year-old male past medical history as above incluidng cirrhosis whi ch apears relatively compensated at this time who presents to the hospital after recent discharge complaining of diarrhea as well as poor oral intake found to have severe ANURIC TREMAYNE and metabolic acidosis now HD dependnet 1. Anuric Acute Kidney Injury: s/p HD started 07/03 and recieved 2nd HD yesterday ( has new Pcath as prior non-tunnelc ath fell out) w/u thus far suggests acute urate nephropathy but would need a kidney Bx to make a defiiitver Dx Clinically presentation not c/w HRS type 1 Unfortunately UOP has not picked up and remains ANURIC despite CT and U/S not revealing hydro still need to r/o noemi Obs Renal Infaction or Renal Vein Thrombosis noemi would alos be poss of ANURIC TREMAYNE but neither is suggested by the CT or U/S 2. AGMA/NAGMA: resolved 3. intravascular eff arterial vol depleted on exam with incr ascities REC: ask urol to see as may consider cu=syto with retrograde to definitiely r/o noemi OBs uropathy; next HD tuesday and will plan for kidney Bx early next week to make definitive Dx; cont alupurinol if UA remains elevated; track UOP/renal func;; avoid NToxins will follow clsoely with team Time Spent With Patient Time: Total time spent is greater than 50% in coordination of care (as d ocumented) at patient's floor/unit and/or counseling patient:
[2020-07-06 20:06] LABS: Glucose, Whole Blood 145 mg/dL (60-115)
[2020-07-06] MEDS: Atorvastatin Calcium 40 MG TABLET PO (21:10)
[2020-07-07] VITALS (10 sets, daily range): BP systolic 90–103; BP diastolic 50–59; PULSE 62–72; RESP 18–19; TEMP 36.1–37.4; O2SAT 93–99
[2020-07-07] MEDS: 0.9 % Sodium Chloride Flush 3 ML SYRINGE IVFLUSH (00:42)
[2020-07-07] MEDS: Dextrose 5 % and Lactated Ring 1,000 ML 80 ML IVCONT ×2 (02:58→13:43)
[2020-07-07 06:28] LABS: Anion Gap 18 (12-20); Blood Urea Nitrogen 30 mg/dL (9-16); Calcium 8.4 mg/dL (8.4-10.2); Carbon Dioxide 18 mmol/L (22-29); Chloride 106 mmol/L (96-108); Estimated Glomerular Filt Rate 10; Glucose Random 182 mg/dL (60-115); Potassium 3.7 mmol/L (3.3-5.1); Sodium 138 mmol/L (135-145)
[2020-07-07] MEDS: Omeprazole 20 MG CAPSULE.DR PO (06:48)
[2020-07-07] MEDS: Sucralfate Oral Suspension 1 GM/10 ML ORAL.SUSP PO ×2 (06:48→21:55)
[2020-07-07 07:30] LABS: Glucose, Whole Blood 185 mg/dL (60-115)
[2020-07-07] MEDS: Midodrine HCl 10 MG TABLET 20 MG PO ×3 (07:47→21:54)
[2020-07-07] MEDS: Cholecalciferol (Vitamin D3) 25 MCG TABLET 50 MCG PO (07:48)
[2020-07-07] MEDS: Nystatin Cream 15 GM TUBE 1 APPL TOPICAL ×2 (07:48→21:55)
[2020-07-07] MEDS: Ascorbic Acid 500 MG TABLET PO (07:48)
--- NOTE | 2020-07-07 09:12 | PM.GIPN ---
Subjective Subjective Date of Service: 07/07/20 Interval History: remains anuric, receiving HD, thought to be due to urate mephropathy asked to see again from GI viewpoint due to anemia and FOBT+ Physical Exam Vital Signs: Vital Signs: Last Vital Signs Temp 98 F 07/07/20 07:17 Pulse 68 07/07/20 07:47 Resp 18 07/07/20 07:17 BP 90/50 L 07/07/20 07:47 Pulse Ox 94 07/07/20 07:17 Body Mass Index 22.6 Objective Data Labs CBC & Chem 7: 07/06/20 04:52 07/07/20 05:24 Labs: Laboratory Results - last 24 hr 07/02/20 07/06/20 07/06/20 Unknown 11:23 16:20 Sodium Potassium Chloride Carbon Dioxide Anion Gap BUN Creatinine Estim Creat Clear Calc Estimated GFR POC Glucose 109 117 H Random Glucose Calcium Ur L.pneumophila Ag Not Detected 07/06/20 07/07/20 07/07/20 20:01 05:24 07:16 Sodium 138 Potassium 3.7 Chloride 106 Carbon Dioxide 18 L Anion Gap 18 BUN 30 H Creatinine 5.73 H* Estim Creat Clear Calc 11.0 Estimated GFR 10 POC Glucose 145 H 185 H Random Glucose 182 H D Calcium 8.4 Ur L.pneumophila Ag Microbiology Microbiology Results: Microbiology 07/04/20 16:15 Paracentesis Fluid Gram Stain - Final 07/04/20 16:15 Paracentesis Fluid Routine Culture - Final No growth after 2 days 07/04/20 16:15 Paracentesis Fluid Anaerobic Culture - Preliminary No growth to date. 07/06/20 04:52 Blood - Venous Blood Culture - Preliminary No growth after 24 hours. 07/06/20 04:52 Blood - Venous Blood Culture - Preliminary No growth after 24 hours. 06/30/20 19:12 Blood - Venous Blood Culture - Final No growth after 5 days. 06/30/20 19:08 Blood - Venous Blood Culture - Final No growth after 5 days. 07/01/20 06:57 Stool Stool Culture - Final 07/01/20 Unknown Urine Catheterized - Ch Catheter Urine Culture - Final No growth. Progress Note: A&P Fall Risk Details Current Medications: Current Medications Generic Name Dose Route Start Last Admin Trade Name Freq PRN Reason Stop Dose Admin Ascorbic Acid 500 mg 07/01/20 09:00 07/07/20 07:48 Ascorbic Acid 500 Mg Tablet PO 500 mg DAILY [facility] Administration Atorvastatin Calcium 40 mg 07/01/20 21:00 07/06/20 21:10 Atorvastatin Calcium 40 Mg Tablet PO 40 mg BEDTIME ROJAS Administration Heparin Sodium (Porcine) 5,000 unit 07/04/20 16:45 07/04/20 18:18 Heparin Sodium,Porcine 5,000 Unit/Ml Vial INTRACATH Not Given MOWEFR@1645 [facility] Ceftriaxone Sodium 1 gm/ 50 mls @ 100 mls/hr 07/03/20 16:00 07/06/20 17:50 Sodium Chloride IV Infused Q24H [facility] Infusion Dextrose/Lactated Ringer's 1,000 mls @ 80 mls/hr 07/06/20 14:15 07/07/20 02:58 D5lr IVCONT 80 mls/hr .[id number] [facility] Administration Insulin Human Lispro 0 unit 07/01/20 07:30 07/07/20 07:59 Insulin Lispro 100 Unit/Ml 3 Ml Vial SUBCUT Not Given QIDACHS [facility] Protocol Midodrine 20 mg 07/02/20 15:00 07/07/20 07:47 Midodrine Hcl 10 Mg Tablet PO 20 mg TID [facility] Administration Nystatin 1 appl 07/01/20 21:00 07/07/20 07:48 Nystatin Cream 15 Gm Tube TOPICAL 1 appl BID [facility] Administration Protocol Omeprazole 20 mg 07/04/20 06:30 07/07/20 06:48 Omeprazole 20 Mg Capsule.Dr PO 20 mg DAILY@0630 [facility] Administration Ondansetron HCl 4 mg 07/01/20 02:11 07/06/20 09:08 Ondansetron Hcl 4 Mg/2 Ml Vial IVPUSH 4 mg Q8H PRN Administration Nausea and Vomiting Oxycodone HCl 2.5 mg 07/05/20 13:12 Oxycodone Hcl Immed Release 5 Mg Tablet PO Q8H PRN Pain, Severe (Pain Scale 7-10) Pharmacy Consult 1 each 06/30/20 18:08 Consult Rx Perform Med Rec MISCELLANE ONCE PRN Consult order Sodium Chloride 3 ml 07/01/20 02:11 07/07/20 07:48 0.9 % Sodium Chloride Flush 3 Ml Syringe IVFLUSH Not Given QSHIFT [facility] Sucralfate 1 gm 07/01/20 07:30 07/07/20 06:48 Sucralfate Oral Suspension 1 Gm/10 Ml Oral.Susp PO 1 gm QIDACHS ROJAS Administration Vitamin D 50 mcg 07/01/20 09:00 07/07/20 07:48 Cholecalciferol (Vitamin D3) 25 Mcg Tablet PO 50 mcg DAILY ROJAS Administration Time Spent With Patient Time: Total time spent is greater than 50% in coordination of care (as documented) at patient's floor/unit and/or counseling patient:
--- NOTE | 2020-07-07 11:48 | MHC.CM.PN ---
Patient is not yet medically cleared for dc (Anuric/HD). Home with [facility] is the goal for dc and CM will follow for possible need to adjust the dc plan.
--- NOTE | 2020-07-07 13:12 | MHC.CLN ---
F/U PO INTAKE VARIABLE DIET RX: 2200DM-APPROPRIATE GLUCERNA AND LACIE IN PLACE TO INCREASE KCALS AND PROMOTE WOUND HEALING FOLLOWING
[2020-07-07 13:41] LABS: Glucose, Whole Blood 122 mg/dL (60-115)
--- NOTE | 2020-07-07 15:01 | PM.PNNEP ---
Subjective Subjective Date of Service: 07/07/20 Interval history: Seen and examined. Events noted Currently on HD Physical Exam Vital Signs: Vital Signs: Last Vital Signs Temp 97 F 07/07/20 13:39 Pulse 72 07/07/20 13:44 Resp 18 07/07/20 13:39 BP 94/53 L 07/07/20 13:44 Pulse Ox 95 07/07/20 13:39 Body Mass Index 22.6 Const: General: cooperative and no acute distress Orientation/consciousness: patient oriented x3 Eyes: General: appearance normal, both eyes and all related structures Resp: Effort & Inspection: normal respiratory effort and able to speak in complete sentences Cardio: Rate: regular rate Rhythm: regular rhythm GI: Palpation (GI): Firmness to palpation present (GI) Auscultation: normal bowel sounds Skin: General skin exam: no rashes or lesions noted Neuro: General: patient oriented x3 Cognition (Neuro): normal cognition Extrem: General: Yes normal to inspection and Yes no pedal edema Objective Data Labs CBC & Chem 7: 07/06/20 04:52 07/07/20 05:24 Labs: Laboratory Results - last 24 hr 07/06/20 07/06/20 07/07/20 16:20 20:01 05:24 Sodium 138 Potassium 3.7 Chloride 106 Carbon Dioxide 18 L Anion Gap 18 BUN 30 H Creatinine 5.73 H* Estim Creat Clear Calc 11.0 Estimated GFR 10 POC Glucose 117 H 145 H Random Glucose 182 H D Calcium 8.4 07/07/20 07/07/20 07:16 13:38 Sodium Potassium Chloride Carbon Dioxide Anion Gap BUN Creatinine Estim Creat Clear Calc Estimated GFR POC Glucose 185 H 122 H Random Glucose Calcium Microbiology Microbiology Results: Microbiology 07/04/20 16:15 Paracentesis Fluid Gram Stain - Final 07/04/20 16:15 Paracentesis Fluid Routine Culture - Final No growth after 2 days 07/04/20 16:15 Paracentesis Fluid Anaerobic Culture - Preliminary No growth to date. 07/06/20 04:52 Blood - Venous Blood Culture - Preliminary No growth after 24 hours. 07/06/20 04:52 Blood - Venous Blood Culture - Preliminary No growth after 24 hours. 06/30/20 19:12 Blood - Venous Blood Culture - Final No growth after 5 days. 06/30/20 19:08 Blood - Venous Blood Culture - Final No growth after 5 days. 07/01/20 06:57 Stool Stool Culture - Final 07/01/20 Unknown Urine Catheterized - Ch Catheter Urine Culture - Final No growth. Assessment & Plan Assessment and plan (1) Acute renal failure: Status: Acute (2) Acute dehydration: Status: Acute (3) GI bleed: Status: Acute (4) Diarrhea: Status: Acute (5) Metabolic acidosis: Status: Acute Assessment and Plan: This is a 70-year-old male past medical history as above incluidng cirrhosis which apears relatively compensated at this time who presents to the hospital after recent discharge complaining of diarrhea as well as poor oral intake found to have severe ANURIC TREMAYNE and metabolic acidosis now HD dependnet 1. Anuric Acute Kidney Injury: s/p HD started 07/03 and recieved 2nd HD yesterday ( has new Pcath as prior non-tunnelc ath fell out) w/u thus far suggests acute urate nephropathy but would need a kidney Bx to make a defiiitver Dx Clinically presentation not c/w HRS type 1 Unfortunately UOP has not picked up and remains ANURIC despite CT and U/S not revealing hydro still need to r/o noemi Obs Renal Infaction or Renal Vein Thrombosis noemi would alos be poss of ANURIC TREMAYNE but neither is suggested by the CT or U/S 2. AGMA/NAGMA: resolved 3. intravascular eff arterial vol depleted on exam with incr ascities REC: urol to see as may consider csyto with retrograde to definitiely r/o noemi OBs uropathy; will plan for kidney Bx ( I asked IR to do kidney Bx) to make definitive Dx; cont alupurinol if UA remains elevated; track UOP/renal func;; avoid NToxins; arranging outpt HD spot at [place] unit will follow clsoely with team Time Spent With Patient Time: Total time spent is greater than 50% in coordination of care (as documented) at patient's floor/unit and/or counseling patient:
--- NOTE | 2020-07-07 15:35 | P.PNIM_ITS ---
Subjective Subjective Date of Service: 07/08/20 Interval History: Patient refusing to eat this morning wants to go home complaining of bilateral leg pain, blood sugars stable creatinine gradually trending up to 5.73, denies nausea vomiting, no acute issues overnight BP remains low. ROS [employer] no headache, no dizziness CVS no chest pain, no palpitation GI no nausea, no vomiting, no diarrhea Musculoskeletal leg pain Physical Exam Vital Signs: Vital Signs: Last Vital Signs Temp 97 F 07/07/20 13:39 Pulse 72 07/07/20 13:44 Resp 18 07/07/20 13:39 BP 94/53 L 07/07/20 13:44 Pulse Ox 95 07/07/20 13:39 Body Mass Index 22.6 General frail looking, awake, alert, no acute distress. Neck supple no JVD. CVS regular rate rhythm, Respiratory lungs clear to auscultation, no respiratory distress, no wheeze, no rhonchi. Gastrointestinal abdomen distended, soft, nontender, bowel sounds audible, no guarding , no rigidity. Extremities no edema, tender to touch with no redness or swelling. Back significant perianal rash and stage II lesion Neuro nonfocal , speech clear. Skin no rash Objective Data Current Medications Generic Name Dose Route Start Last Admin Trade Name Freq PRN Reason Stop Dose Admin Ascorbic Acid 500 mg 07/01/20 09:00 07/07/20 07:48 Ascorbic Acid 500 Mg Tablet PO 500 mg DAILY [facility] Administration Heparin Sodium (Porcine) 5,000 unit 07/04/20 16:45 07/04/20 18:18 Heparin Sodium,Porcine 5,000 Unit/Ml Vial INTRACATH Not Given MOWEFR@1645 [facility] Dextrose/Lactated Ringer's 1,000 mls @ 80 mls/hr 07/06/20 14:15 07/07/20 13:43 D5lr IVCONT 80 mls/hr .[id number] ROJAS Administration Insulin Human Lispro 0 unit 07/01/20 07:30 07/07/20 13:21 Insulin Lispro 100 Unit/Ml 3 Ml Vial SUBCUT Not Given QIDACHS [facility] Protocol Midodrine 20 mg 07/02/20 15:00 07/07/20 13:44 Midodrine Hcl 10 Mg Tablet PO 20 mg TID ROJAS Administration Nystatin 1 appl 07/01/20 21:00 07/07/20 07:48 Nystatin Cream 15 Gm Tube TOPICAL 1 appl BID [facility] Administration Protocol Omeprazole 20 mg 07/04/20 06:30 07/07/20 06:48 Omeprazole 20 Mg Capsule. PO 20 mg DAILY@0630 [facility] Administration Ondansetron HCl 4 mg 07/01/20 02:11 07/06/20 09:08 Ondansetron Hcl 4 Mg/2 Ml Vial IVPUSH 4 mg Q8H PRN Administration Nausea and Vomiting Oxycodone HCl 2.5 mg 07/05/20 13:12 Oxycodone Hcl Immed Release 5 Mg Tablet PO Q8H PRN Pain, Severe (Pain Scale 7-10) Pharmacy Consult 1 each 06/30/20 18:08 Consult Rx Perform Med Rec MISCELLANE ONCE PRN Consult order Sodium Chloride 3 ml 07/01/20 02:11 07/07/20 15:14 0.9 % Sodium Chloride Flush 3 Ml Syringe IVFLUSH Not Given QSHIFT [facility] Sucralfate 1 gm 07/01/20 07:30 07/07/20 13:21 Sucralfate Oral Suspension 1 Gm/10 Ml Oral.Susp PO Not Given QIDACHS [facility] Vitamin D 50 mcg 07/01/20 09:00 07/07/20 07:48 Cholecalciferol (Vitamin D3) 25 Mcg Tablet PO 50 mcg DAILY [facility] Administration Labs CBC & Chem 7: 07/06/20 04:52 07/08/20 05:29 Microbiology Microbiology Results: Microbiology 07/04/20 16:15 Paracentesis Fluid Gram Stain - Final 07/04/20 16:15 Paracentesis Fluid Routine Culture - Final No growth after 2 days 07/04/20 16:15 Paracentesis Fluid Anaerobic Culture - Preliminary No growth to date. 07/06/20 04:52 Blood - Venous Blood Culture - Preliminary No growth after 24 hours. 07/06/20 04:52 Blood - Venous Blood Culture - Preliminary No growth after 24 hours. 06/30/20 19:12 Blood - Venous Blood Culture - Final No growth after 5 days. 06/30/20 19:08 Blood - Venous Blood Culture - Final No growth after 5 days. 07/01/20 06:57 Stool Stool Culture - Final 07/01/20 Unknown Urine Catheterized - Ch Catheter Urine Culture - Final No growth. Assessment and Plan (1) Acute renal failure: Status: Acute (2) Severe malnutrition: Status: Acute (3) Metabolic acidosis: Status: Acute (4) GI bleed: Status: Acute (5) Adult failure to thrive: Status: Acute (6) Ascites: Status: Acute (7) Hyperlipidemia LDL goal <100: Status: Acute (8) Essential hypertension: Status: Acute Assessment and Plan: 70-year-old male past medical history as above who presents to the hospital after recent discharge complaining of diarrhea as well as poor oral intake found to have severe TREMAYNE 1. Acute Kidney Injury question related to urate nephropathy, patient is status post hemodialysis x2 , schedule for hemodialysis today case discussed with Dr. Griffin he recommend to obtain urology consultation since patient has persistent low urine output ,rule out obstructive component. uric acid level improved from 19.2-9.9, will continue to follow uric acid level and renal function closely. Metabolic acidosis due to TREMAYNE is stable, BP remains low will continue IV fluid, continue midodrin, and hold nadolol and spironolactone. Will make patient NPO since scheduled for renal biopsy tomorrow/will receive DDAVP. 2. Diarrhea resolved stool studies negative for C diff, stool cultures negative as well. 3. Cirrhosis / asictes (cause of cirrhosis unclear -- pt reports heavy drinking but stopped years ago, Hep C positive but viral load neg) Patient is status post paracentesis 07/04, 2.5 L of clear yellowish fluid was drained, fluid cell count not suggestive of SBP , discontinued antibiotic, patient noted to have worsening abdominal distention, denies abdominal pain no shortness of breath will continue to follow Will repeat LFTs and INR. 4. DM blood sugars blood sugars stable today , Lantus discontinued due to poor by mouth intake and low blood sugars. 5 acute on chronic anemia no active blood loss noted, Recent episode of Gi bleed h/h dropped but stable, no signs of active bleed , recent EGD showed esophageal varices as well as bleeding ulcer that was treated, continue omeprazole repeat hematocrit remains low but stable,continue PPI and Carafate Procrit per Nephrology. 6. Stage II ulcer and perianal rash would continue frequent position change nystatin powder and foam dressing to ulcer will start Glucerna 7. Weakness and lethargy with low blood pressure continue IV fluids and minimize narcotic 8. Severe malnutrition cont Ensure b.i.d. and Brent to promote wound healing Full Code DVT pptx, Mechanical device due to previous life threatening GI bleed
[2020-07-07 16:14] LABS: Alanine Aminotransferase 31 U/L (0-40); Albumin Level 3.3 g/dL (3.5-5.0); Alkaline Phosphatase 610 U/L (39-117); Aspartate Amino Transferase 107 U/L (5-37); Bilirubin Direct 0.9 mg/dL (0.0-0.5); Bilirubin Total 1.3 mg/dL (0.0-1.0)
[2020-07-07 16:37] LABS: Glucose, Whole Blood 150 mg/dL (60-115)
[2020-07-07 19:36] LABS: Anti Nuclear Antibody Screen POSITIVE (NEGATIVE)
--- NOTE | 2020-07-07 19:36 | PC.NURSE ---
1600- Pt c/o of scrotum/groin pain. Ch assessed. Hand irrigated, no clots visible. Ch care completed. Sore noted at meatus of penis, barrier cream applied. Dr. Langford at bedside. Per MD, pain bladder spasms. No new orders. Pt has no other complaints at this time.
--- NOTE | 2020-07-07 19:38 | PC.NURSE ---
0800- Pt POC 185, refusing to eat breakfast. Dr. Caceres made aware. SSI held. No new orders
[2020-07-07 21:17] LABS: Glucose, Whole Blood 155 mg/dL (60-115)
[2020-07-07] MEDS: Insulin Lispro 100 UNIT/ML 3 ML VIAL SUBCUT (21:55)
[2020-07-08] VITALS (13 sets, daily range): BP systolic 93–106; BP diastolic 50–59; PULSE 60–84; RESP 18–20; TEMP 36.6–37.3; O2SAT 96–97
[2020-07-08] MEDS: Dextrose 5 % and Lactated Ring 1,000 ML 80 ML IVCONT ×2 (02:46→15:19)
[2020-07-08] MEDS: Omeprazole 20 MG CAPSULE.DR PO (05:33)
[2020-07-08 06:26] LABS: INTERNATIONAL NORM RATIO 1.3 (0.9-1.1); Prothrombin Time 14.9 SEC (10.8-13.0)
[2020-07-08 06:58] LABS: Anion Gap 16 (12-20); Blood Urea Nitrogen 15 mg/dL (9-16); Carbon Dioxide 17 mmol/L (22-29); Chloride 106 mmol/L (96-108); Creatinine Clr Calc Pharmacy 16.8; Estimated Glomerular Filt Rate 16; Glucose Random 110 mg/dL (60-115); Potassium 3.5 mmol/L (3.3-5.1); Sodium 135 mmol/L (135-145)
[2020-07-08 07:16] LABS: Glucose, Whole Blood 121 mg/dL (60-115)
[2020-07-08] MEDS: Sucralfate Oral Suspension 1 GM/10 ML ORAL.SUSP PO ×3 (08:01→21:42)
[2020-07-08] MEDS: Midodrine HCl 10 MG TABLET 20 MG PO ×3 (08:01→21:41)
[2020-07-08] MEDS: Cholecalciferol (Vitamin D3) 25 MCG TABLET 50 MCG PO (08:01)
[2020-07-08] MEDS: Nystatin Cream 15 GM TUBE 1 APPL TOPICAL ×2 (08:02→21:51)
[2020-07-08] MEDS: Ascorbic Acid 500 MG TABLET PO (08:02)
[2020-07-08] MEDS: 0.9 % Sodium Chloride Flush 3 ML SYRINGE IVFLUSH ×3 (08:02→21:42)
[2020-07-08] MEDS: DESMOPRESSIN ACETATE IV (10:28)
[2020-07-08] MEDS: SODIUM CHLORIDE 0.9% IV (10:28)
--- NOTE | 2020-07-08 11:43 | HO.RADPN ---
RADIOLOGY Narrative Narrative: CT guided lower pole left kidney biopsy performed using coaxial system. 2 18g core biopsies obtained. No complication.
[2020-07-08] MEDS: Lidocaine HCl 1 % MPF 5 ML VIAL 10 ML SUBCUT (11:52)
[2020-07-08 12:00] LABS: Glucose, Whole Blood 129 mg/dL (60-115)
--- NOTE | 2020-07-08 13:07 | PM.UROCN ---
History of Present Illness Consult details Consult date: 07/08/20 Narrative: 70-year-old male Baseline of chronic liver disease Admitted with pattern renal syndrome Known ascites Ch catheter placed Requiring hemodialysis Question of upper tract bilateral obstruction This will be unlikely given the clinical picture Will perform cystoscopy, retrograde, stent if nephrology feel this is warranted [facility] Past Medical History Medical History (Updated 07/06/20 @ 14:12 by Nicolas Caceres MD) Anemia Ascites Cirrhosis Esophageal varices Essential hypertension GERD (gastroesophageal reflux disease) GI bleed Hyperlipidemia LDL goal <100 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 Type 2 diabetes mellitus with hyperglycemia Family History Family History Father Diabetes Mother Breast cancer Diabetes Cardiovascular disease Brother Diabetes Sister Diabetes Surgical History Surgical History History of liver biopsy Social History Social History Household Members: Family Housing: Unknown / Unable to assess Alcohol intake: former Smoking Status: Never smoker Smoked in Last 30 Days: No Second Hand Smoke Exposure: No Use of substances other than those prescribed or required for medical reasons: No Currently Displaying Signs/Symptoms of Drug Intoxication Withdrawal: No Any prior treatment program specific to substance use: No Have you been hit, kicked, punched, or otherwise hurt by someone within the past year? If so, by whom?: No Do you feel safe in your current relationship?: Yes Is there a partner from a previous relationship who is making you feel unsafe now?: No Are you made to feel afraid or neglected: No Advance Directives: No Advance Directives Information Provided: Yes Do you have thoughts of harming others: None Do you have a plan to hurt others: No Plan Recently lost weight without trying: No service: No Current occupational status: retired Meds Allergies Allergy/AdvReac Type Severity Reaction Status Date / Time No Known Allergies Allergy Verified 05/26/20 10:49 Active Medications: Current Medications Generic Name Dose Route Start Last Admin Trade Name Freq PRN Reason Stop Dose Admin Ascorbic Acid 500 mg 07/01/20 09:00 07/08/20 08:02 Ascorbic Acid 500 Mg Tablet PO 500 mg DAILY ROJAS Administration Heparin Sodium (Porcine) 5,000 unit 07/04/20 16:45 07/07/20 16:07 Heparin Sodium,Porcine 5,000 Unit/Ml Vial INTRACATH Not Given MOWEFR@1645 [facility] Dextrose/Lactated Ringer's 1,000 mls @ 80 mls/hr 07/06/20 14:15 07/08/20 02:46 D5lr IVCONT 80 mls/hr .[id number] [facility] Administration Insulin Human Lispro 0 unit 07/01/20 07:30 07/08/20 12:07 Insulin Lispro 100 Unit/Ml 3 Ml Vial SUBCUT Not Given QIDAS [facility] Protocol Midodrine 20 mg 07/02/20 15:00 07/08/20 08:01 Midodrine Hcl 10 Mg Tablet PO 20 mg TID [facility] Administration Nystatin 1 appl 07/01/20 21:00 07/08/20 08:02 Nystatin Cream 15 Gm Tube TOPICAL 1 appl BID [facility] Administration Protocol Omeprazole 20 mg 07/04/20 06:30 07/08/20 05:33 Omeprazole 20 Mg Capsule. PO 20 mg DAILY@0630 [facility] Administration Ondansetron HCl 4 mg 07/01/20 02:11 07/06/20 09:08 Ondansetron Hcl 4 Mg/2 Ml Vial IVPUSH 4 mg Q8H PRN Administration Nausea and Vomiting Oxycodone HCl 2.5 mg 07/05/20 13:12 Oxycodone Hcl Immed Release 5 Mg Tablet PO Q8H PRN Pain, Severe (Pain Scale 7-10) Pharmacy Consult 1 each 06/30/20 18:08 Consult Rx Perform Med Rec MISCELLANE ONCE PRN Consult order Sodium Chloride 3 ml 07/01/20 02:11 07/08/20 08:02 0.9 % Sodium Chloride Flush 3 Ml Syringe IVFLUSH 3 ml QSHIFT [facility] Administration Sucralfate 1 gm 07/01/20 07:30 07/08/20 12:43 Sucralfate Oral Suspension 1 Gm/10 Ml Oral.Susp PO Not Given QIDAS [facility] Vitamin D 50 mcg 07/01/20 09:00 07/08/20 08:01 Cholecalciferol (Vitamin D3) 25 Mcg Tablet PO 50 mcg DAILY [facility] Administration Home Medications Medication Instructions Recorded Confirmed Last Taken Type ascorbic acid (vitamin C) 500 mg 500 mg PO DAILY 02/19/20 06/30/20 Unknown History tablet cholecalciferol (vitamin D3) 50 50 mcg PO QAM 02/19/20 06/30/20 Unknown History mcg (2,000 unit) tablet ferrous sulfate 325 mg (65 mg 325 mg PO QAM 02/19/20 06/30/20 Unknown History iron) tablet hydrocodone 5 mg-acetaminophen 325 1 tab PO Q8H PRN 02/19/20 06/30/20 Unknown History mg tablet tamsulosin 0.4 mg capsule 0.4 mg PO BEDTIME 02/19/20 06/30/20 Unknown History atorvastatin 40 mg tablet 40 mg PO BEDTIME tab 03/25/20 06/30/20 Unknown History gabapentin 300 mg capsule 300 mg PO BID cap 04/28/20 06/30/20 Unknown History insulin aspart U-100 [Novolog 6 unit SUBCUT TID 06/30/20 06/30/20 Unknown History Flexpen U-100 Insulin] insulin glargine [Basaglar KwikPen 14 unit SUBCUT DAILY 06/30/20 06/30/20 Unknown History U-100 Insulin] sucralfate 10 ml PO QIDACHS 06/30/20 06/30/20 Unknown History Physical Exam Vital Signs: Vital Signs: Last Vital Signs Temp 99.1 F 07/08/20 12:30 Pulse 65 07/08/20 12:30 Resp 18 07/08/20 12:30 BP 97/54 L 07/08/20 12:30 Pulse Ox 97 07/08/20 12:30 Body Mass Index 22.6 Const: General: cooperative, healthy appearing, comfortable and no acute distress Nutritional Appearance: average body habitus Orientation/consciousness: oriented to person, oriented to place and oriented to time Eyes: General: appearance normal, both eyes and all related structures Chest: Chest palpation & inspection: normal inspection of the chest Resp: Effort & Inspection: normal respiratory effort Cardio: Rate: regular rate GI: Inspection: Yes normal to inspection Skin: Hair: normal Neuro: General: oriented to person, oriented to place and oriented to time Extrem: General: Yes normal to inspection Results Labs Result diagrams: 07/06/20 04:52 07/08/20 05:29 Labs: Abnormal lab results 07/02/20 07/07/20 07/07/20 Range/Units 22:57 05:24 13:38 PT (10.8-13.0) SEC INR (0.9-1.1) Carbon Dioxide (22-29) mmol/L Creatinine (0.5-1.4) mg/dL POC Glucose 122 H (60-115) mg/dL Calcium (8.4-10.2) mg/dL Total Bilirubin 1.3 H (0.0-1.0) mg/dL Direct Bilirubin 0.9 H (0.0-0.5) mg/dL AST 107 H (5-37) U/L Alkaline Phosphatase 610 H (39-117) U/L Total Protein 6.0 L (6.5-8.0) g/dL Albumin 3.3 L (3.5-5.0) g/dL LES Screen POSITIVE A (NEGATIVE) LES Titer 1:80 H titer Crossmatch 07/07/20 07/07/20 07/07/20 Range/Units 16:27 17:08 20:39 PT (10.8-13.0) SEC INR (0.9-1.1) Carbon Dioxide (22-29) mmol/L Creatinine (0.5-1.4) mg/dL POC Glucose 150 H 155 H (60-115) mg/dL Calcium (8.4-10.2) mg/dL Total Bilirubin (0.0-1.0) mg/dL Direct Bilirubin (0.0-0.5) mg/dL AST (5-37) U/L Alkaline Phosphatase (39-117) U/L Total Protein (6.5-8.0) g/dL Albumin (3.5-5.0) g/dL LES Screen (NEGATIVE) LES Titer titer Crossmatch See Detail 07/08/20 07/08/20 07/08/20 Range/Units 05:29 05:29 07:10 PT 14.9 H (10.8-13.0) SEC INR 1.3 H (0.9-1.1) Carbon Dioxide 17 L (22-29) mmol/L Creatinine 3.77 H (0.5-1.4) mg/dL POC Glucose 121 H (60-115) mg/dL Calcium 8.0 L (8.4-10.2) mg/dL Total Bilirubin (0.0-1.0) mg/dL Direct Bilirubin (0.0-0.5) mg/dL AST (5-37) U/L Alkaline Phosphatase (39-117) U/L Total Protein (6.5-8.0) g/dL Albumin (3.5-5.0) g/dL LES Screen (NEGATIVE) LES Titer titer Crossmatch 07/08/20 Range/Units 11:54 PT (10.8-13.0) SEC INR (0.9-1.1) Carbon Dioxide (22-29) mmol/L Creatinine (0.5-1.4) mg/dL POC Glucose 129 H (60-115) mg/dL Calcium (8.4-10.2) mg/dL Total Bilirubin (0.0-1.0) mg/dL Direct Bilirubin (0.0-0.5) mg/dL AST (5-37) U/L Alkaline Phosphatase (39-117) U/L Total Protein (6.5-8.0) g/dL Albumin (3.5-5.0) g/dL LES Screen (NEGATIVE) LES Titer titer Crossmatch [facility] 07/08/20 05:29 Sodium 135 Potassium 3.5 Chloride 106 Carbon Dioxide 17 L BUN 15 Creatinine 3.77 H Calcium 8.0 L Liver Function 07/07/20 Range/Units 05:24 Total Bilirubin 1.3 H (0.0-1.0) mg/dL Direct Bilirubin 0.9 H (0.0-0.5) mg/dL AST 107 H (5-37) U/L ALT 31 (0-40) U/L Alkaline Phosphatase 610 H (39-117) U/L Albumin 3.3 L (3.5-5.0) g/dL Urine 07/01/20 07/02/20 Range/Units 11:45 10:00 Urine Color DARK YELLOW BROWN Urine Appearance CLOUDY TURBID Urine pH 5.0 6.5 (5.0-8.0) Ur Specific [place] >= 1.030 H >= 1.030 H (1.005-1.025) Urine Protein 2+ H 3+ H (NEG-TRACE) MG/DL Urine Glucose (UA) NEG NEG (NEG) MG/DL All other labs normal. Assessment and Plan (1) Acute renal failure: Qualifiers: Acute renal failure type: unspecified Qualified Code(s): N17.9 - Acute kidney failure, unspecified Status: Acute Would perform retrograde stent placement if Nephrology feels this is warranted
[2020-07-08 15:50] LABS: Glucose, Whole Blood 123 mg/dL (60-115)
--- NOTE | 2020-07-08 18:45 | P.PNIM_ITS ---
Subjective Subjective Date of Service: 07/09/20 Interval History: Patient NPO for renal biopsy this morning, denies shortness of breath, has persistent leg pain. Wants to go home ROS General, generalized pain [employer] no headache, no dizziness CVS no chest pain, no palpitation GI no nausea, no vomiting, no diarrhea Physical Exam Vital Signs: Vital Signs: Last Vital Signs Temp 98.5 F 07/08/20 15:05 Pulse 67 07/08/20 15:21 Resp 20 07/08/20 15:05 BP 100/56 L 07/08/20 15:21 Pulse Ox 97 07/08/20 15:05 Body Mass Index 22.6 General frail looking, awake, alert, no acute distress. Neck supple no JVD. CVS regular rate rhythm, Respiratory lungs clear to auscultation, no respiratory distress, no wheeze, no rhonchi. Gastrointestinal abdomen distended, soft, nontender, bowel sounds audible, no guarding , no rigidity. Extremities no edema, tender to touch with no redness or swelling. Back significant perianal rash and stage II lesion mid back Neuro nonfocal , speech clear. Skin no rash Objective Data Current Medications Generic Name Dose Route Start Last Admin Trade Name Freq PRN Reason Stop Dose Admin Ascorbic Acid 500 mg 07/01/20 09:00 07/08/20 08:02 Ascorbic Acid 500 Mg Tablet PO 500 mg DAILY ROJAS Administration Heparin Sodium (Porcine) 5,000 unit 07/04/20 16:45 07/07/20 16:07 Heparin Sodium,Porcine 5,000 Unit/Ml Vial INTRACATH Not Given MOWEFR@1645 ROJAS Dextrose/Lactated Ringer's 1,000 mls @ 80 mls/hr 07/06/20 14:15 07/08/20 15:19 D5lr IVCONT 80 mls/hr .[id number] ROJAS Administration Insulin Human Lispro 0 unit 07/01/20 07:30 07/08/20 16:10 Insulin Lispro 100 Unit/Ml 3 Ml Vial SUBCUT Not Given QIDACHS [facility] Protocol Midodrine 20 mg 07/02/20 15:00 07/08/20 15:21 Midodrine Hcl 10 Mg Tablet PO 20 mg TID ROJAS Administration Nystatin 1 appl 07/01/20 21:00 07/08/20 08:02 Nystatin Cream 15 Gm Tube TOPICAL 1 appl BID ROJAS Administration Protocol Omeprazole 20 mg 03/12/21 06:30 07/08/20 05:33 Omeprazole 20 Mg Capsule. PO 20 mg DAILY@0630 [facility] Administration Ondansetron HCl 4 mg 07/01/20 02:11 07/06/20 09:08 Ondansetron Hcl 4 Mg/2 Ml Vial IVPUSH 4 mg Q8H PRN Administration Nausea and Vomiting Oxycodone HCl 2.5 mg 07/05/20 13:12 Oxycodone Hcl Immed Release 5 Mg Tablet PO Q8H PRN Pain, Severe (Pain Scale 7-10) Pharmacy Consult 1 each 06/30/20 18:08 Consult Rx Perform Med Rec MISCELLANE ONCE PRN Consult order Sodium Chloride 3 ml 07/01/20 02:11 07/08/20 15:21 0.9 % Sodium Chloride Flush 3 Ml Syringe IVFLUSH 3 ml QSHIFT [facility] Administration Sucralfate 1 gm 07/01/20 07:30 07/08/20 15:28 Sucralfate Oral Suspension 1 Gm/10 Ml Oral.Susp PO 1 gm QIDACHS [facility] Administration Vitamin D 50 mcg 07/01/20 09:00 07/08/20 08:01 Cholecalciferol (Vitamin D3) 25 Mcg Tablet PO 50 mcg DAILY ROJAS Administration Labs CBC & Chem 7: 07/06/20 04:52 07/08/20 05:29 Microbiology Microbiology Results: Microbiology 07/04/20 16:15 Paracentesis Fluid Gram Stain - Final 07/04/20 16:15 Paracentesis Fluid Routine Culture - Final No growth after 2 days 07/04/20 16:15 Paracentesis Fluid Anaerobic Culture - Preliminary No growth to date. 07/06/20 04:52 Blood - Venous Blood Culture - Preliminary No growth after 48 hours. 07/06/20 04:52 Blood - Venous Blood Culture - Preliminary No growth after 48 hours. 06/30/20 19:12 Blood - Venous Blood Culture - Final No growth after 5 days. 06/30/20 19:08 Blood - Venous Blood Culture - Final No growth after 5 days. 07/01/20 06:57 Stool Stool Culture - Final 07/01/20 Unknown Urine Catheterized - Ch Catheter Urine Culture - Final No growth. Assessment and Plan (1) Acute renal failure: Status: Acute (2) Ascites: Status: Acute (3) Severe malnutrition: Status: Acute (4) Metabolic acidosis: Status: Acute (5) GI bleed: Status: Acute (6) Acute dehydration: Status: Acute (7) Adult failure to thrive: Status: Acute (8) Hyperlipidemia LDL goal <100: Status: Acute (9) Essential hypertension: Status: Acute (10) Diarrhea: Status: Acute Assessment and Plan: 70-year-old male past medical history as above who presents to the hospital after recent discharge complaining of diarrhea as well as poor oral intake found to have severe TREMAYNE 1. 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 Griffin he recommend to obtain urology consultation to rule out obstructive component. Patient will undergo renal biopsy for definite diagnosis today. Metabolic acidosis due to TREMAYNE is stable, BP remains low , continue midodrin, and hold nadolol and spironolactone. 2. Diarrhea resolved stool studies negative for C diff, stool cultures negative as well. 3. Cirrhosis / asictes (cause of cirrhosis unclear -- pt reports heavy drinking but stopped years ago, Hep C positive but viral load neg Patient is status post paracentesis 07/04, 2.5 L of clear yellowish fluid was drained, fluid cell count not suggestive of SBP , discontinued antibiotic, patient noted to have worsening abdominal distention, denies abdominal pain no shortness of breath will continue to follow LFTs stable, INR 1.3. 4. DM blood sugars blood sugars stable today , Lantus discontinued due to poor by mouth intake and low blood sugars. 5 acute on chronic anemia no active blood loss noted, Recent episode of Gi bleed h/h dropped but stable, no signs of active bleed , recent EGD showed esophageal varices as well as bleeding ulcer that was treated, continue omeprazole ,continue PPI and Carafate Procrit per Nephrology. 6. Stage II ulcer and perianal rash would continue frequent position change nystatin powder and foam dressing to ulcer will start Glucerna 7. Weakness and lethargy with low blood pressure stable 8. Severe malnutrition cont Ensure b.i.d. and Brent to promote wound healing Disposition to be transferred to rehab for continued hemodialysis Full Code DVT pptx, Mechanical device due to previous life threatening GI bleed
[2020-07-08 19:53] LABS: Glucose, Whole Blood 150 mg/dL (60-115)
[2020-07-08] MEDS: oxyCODONE HCl Immed Release 5 MG TABLET 2.5 MG PO (21:40)
[2020-07-09] VITALS (11 sets, daily range): BP systolic 90–101; BP diastolic 47–60; PULSE 63–73; RESP 18–20; TEMP 36.2–37.3; O2SAT 96–99
[2020-07-09 07:40] LABS: Glucose, Whole Blood 88 mg/dL (60-115)
[2020-07-09 08:11] LABS: HBS Num1 0.91 mIU/mL (0-7.99); HBc Num1 0.12 S/CO (0.00-0.79); Hepatitis B Core Antibody Nonreactive (Nonreactive); ~Hepatitis B Surface Antibody NONREACTIVE (Nonreactive)
[2020-07-09] MEDS: Midodrine HCl 10 MG TABLET 20 MG PO ×3 (08:19→23:03)
[2020-07-09] MEDS: Cholecalciferol (Vitamin D3) 25 MCG TABLET 50 MCG PO (08:20)
[2020-07-09] MEDS: Sucralfate Oral Suspension 1 GM/10 ML ORAL.SUSP PO ×4 (08:21→23:01)
[2020-07-09] MEDS: Ascorbic Acid 500 MG TABLET PO (08:21)
[2020-07-09 08:29] LABS: HBsAGNum1 0.15 S/CO (0.00-0.99); Hepatitis B Surface Antigen Negative (Negative); ~HepC Num1 9.55 S/CO (0.00-0.79); ~Hepatitis C Antibody Reactive (Nonreactive)
[2020-07-09] MEDS: 0.9 % Sodium Chloride Flush 3 ML SYRINGE IVFLUSH ×3 (08:30→23:01)
--- NOTE | 2020-07-09 11:29 | MHC.CLN ---
F/U PO INTAKE POOR DIET RX: 2GM NA- WILL CHANGE DIET TO 2200DM WILL RE-START GLUCERNA AND LACIE TO INCREASE KCALS AND PROMOTE WOUND HEALING FOLLOWING
[2020-07-09 12:40] LABS: Glucose, Whole Blood 77 mg/dL (60-115)
[2020-07-09] MEDS: Nystatin Cream 15 GM TUBE 1 APPL TOPICAL ×2 (12:41→23:01)
--- NOTE | 2020-07-09 13:12 | P.PNUR_ITS ---
Subjective Subjective Date of Service: 07/09/20 Interval history: Discussed with nephrology Date would like retrograde stents Has will be organized Physical Exam Vital Signs: Vital Signs: Last Vital Signs Temp 97.7 F 07/09/20 08:30 Pulse 63 07/09/20 12:35 Resp 19 07/09/20 08:30 BP 98/60 07/09/20 12:35 Pulse Ox 97 07/09/20 12:35 Body Mass Index 22.6 Const: General: cooperative, healthy appearing, comfortable and no acute distress Nutritional Appearance: average body habitus Orientation/consciousness: oriented to person, oriented to place and oriented to time Eyes: General: appearance normal, both eyes and all related structures Chest: Chest palpation & inspection: normal inspection of the chest Resp: Effort & Inspection: normal respiratory effort Cardio: Rate: regular rate GI: Inspection: Yes normal to inspection Skin: Hair: normal Neuro: General: oriented to person, oriented to place and oriented to time Extrem: General: Yes normal to inspection Urology Results Labs CBC & Chem 7: 07/06/20 04:52 07/08/20 05:29 Labs: Laboratory Results - last 24 hr 07/07/20 07/08/20 07/08/20 13:24 15:45 19:46 POC Glucose 123 H 150 H Hep Bs Antigen Negative Hep Bs Antibody NONREACTIVE Hep B Core Total Ab Nonreactive Hepatitis C Ab (EIA) Reactive H 07/09/20 07/09/20 07:31 12:37 POC Glucose 88 77 Hep Bs Antigen Hep Bs Antibody Hep B Core Total Ab Hepatitis C Ab (EIA) Progress Note: A&P Assessment and plan (1) Acute renal failure: Status: Acute Fall Risk Details Current Medications: Current Medications Generic Name Dose Route Start Last Admin Trade Name Freq PRN Reason Stop Dose Admin Ascorbic Acid 500 mg 07/01/20 09:00 07/09/20 08:21 Ascorbic Acid 500 Mg Tablet PO 500 mg DAILY [facility] Administration Heparin Sodium (Porcine) 5,000 unit 07/04/20 16:45 07/07/20 16:07 Heparin Sodium,Porcine 5,000 Unit/Ml Vial INTRACATH Not Given MOWEFR@1645 [facility] Insulin Human Lispro 0 unit 07/01/20 07:30 07/09/20 12:41 Insulin Lispro 100 Unit/Ml 3 Ml Vial SUBCUT Not Given QIDACHS [facility] Protocol Levofloxacin 500 mg 07/09/20 13:10 Levofloxacin 500 Mg Tablet PO 07/09/20 13:11 ONCE ONE Midodrine 20 mg 07/02/20 15:00 07/09/20 08:19 Midodrine Hcl 10 Mg Tablet PO 20 mg TID [facility] Administration Nystatin 1 appl 07/01/20 21:00 07/09/20 12:41 Nystatin Cream 15 Gm Tube TOPICAL 1 appl BID ROJAS Administration Protocol Omeprazole 20 mg 07/04/20 06:30 07/09/20 05:29 Omeprazole 20 Mg Capsule.Dr PO Not Given DAILY@0630 [facility] Ondansetron HCl 4 mg 07/01/20 02:11 07/06/20 09:08 Ondansetron Hcl 4 Mg/2 Ml Vial IVPUSH 4 mg Q8H PRN Administration Nausea and Vomiting Oxycodone HCl 2.5 mg 07/05/20 13:12 07/08/20 21:40 Oxycodone Hcl Immed Release 5 Mg Tablet PO 2.5 mg Q8H PRN Administration Pain, Severe (Pain Scale 7-10) Pharmacy Consult 1 each 06/30/20 18:08 Consult Rx Perform Med Rec MISCELLANE ONCE PRN Consult order Sodium Chloride 3 ml 07/01/20 02:11 07/09/20 08:30 0.9 % Sodium Chloride Flush 3 Ml Syringe IVFLUSH 3 ml QSHIFT [facility] Administration Sucralfate 1 gm 07/01/20 07:30 07/09/20 12:40 Sucralfate Oral Suspension 1 Gm/10 Ml Oral.Susp PO 1 gm QIDACHS [facility] Administration Vitamin D 50 mcg 07/01/20 09:00 07/09/20 08:20 Cholecalciferol (Vitamin D3) 25 Mcg Tablet PO 50 mcg DAILY ROJAS Administration Time Spent With Patient Time: Total time spent is greater than 50% in coordination of care (as documented) at patient's floor/unit and/or counseling patient: Time with patient: less than 15 minutes
--- NOTE | 2020-07-09 13:13 | MHC.CM.PN ---
DP to [facility] today. Discharge is on hold today. The facility has been notified. The results of Renal biopsy are needed prior to discharge. If the Bx is Negative a Cysto is planned. CM will continue to follow.
[2020-07-09 16:01] LABS: Glucose, Whole Blood 94 mg/dL (60-115)
--- NOTE | 2020-07-09 17:06 | P.PNIM_ITS ---
Subjective Subjective Date of Service: 07/09/20 Interval History: Patient appears significantly better today offers no acute complaints still asking to go home, moans whenever he is turned or examined. 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 Neck supple no JVD. CVS regular rate rhythm, Respiratory lungs clear to auscultation, no respiratory distress, no wheeze, no rhonchi. Gastrointestinal abdomen distended, soft, nontender, bowel sounds audible, no g uarding , no rigidity. Extremities no edema, tender to touch with no redness or swelling. Back significant perianal rash and stage II lesion mid back Neuro nonfocal , speech clear. Skin no rash Objective Data Current Medications Generic Name Dose Route Start Last Admin Trade Name Freq PRN Reason Stop Dose Admin Ascorbic Acid 500 mg 07/01/20 09:00 07/09/20 08:21 Ascorbic Acid 500 Mg Tablet PO 500 mg DAILY [facility] Administration Heparin Sodium (Porcine) 5,000 unit 07/04/20 16:45 07/07/20 16:07 Heparin Sodium,Porcine 5,000 Unit/Ml Vial INTRACATH Not Given MOWEFR@1645 [facility] Insulin Human Lispro 0 unit 07/01/20 07:30 07/09/20 12:41 Insulin Lispro 100 Unit/Ml 3 Ml Vial SUBCUT Not Given QIDACHS [facility] Protocol Levofloxacin 500 mg 07/10/20 11:30 Levofloxacin 500 Mg Tablet PO 07/10/20 11:31 ONCE ONE Midodrine 20 mg 07/02/20 15:00 07/09/20 08:19 Midodrine Hcl 10 Mg Tablet PO 20 mg TID [facility] Administration Nystatin 1 appl 07/01/20 21:00 07/09/20 12:41 Nystatin Cream 15 Gm Tube TOPICAL 1 appl BID [facility] Administration Protocol Omeprazole 20 mg 07/04/20 06:30 07/09/20 05:29 Omeprazole 20 Mg Capsule.Dr PO Not Given DAILY@0630 [facility] Ondansetron HCl 4 mg 07/01/20 02:11 07/06/20 09:08 Ondansetron Hcl 4 Mg/2 Ml Vial IVPUSH 4 mg Q8H PRN Administration Nausea and Vomiting Oxycodone HCl 2.5 mg 07/05/20 13:12 07/08/20 21:40 Oxycodone Hcl Immed Release 5 Mg Tablet PO 2.5 mg Q8H PRN Administration Pain, Severe (Pain Scale 7-10) Pharmacy Consult 1 each 06/30/20 18:08 Consult Rx Perform Med Rec MISCELLANE ONCE PRN Consult order Sodium Chloride 3 ml 07/01/20 02:11 07/09/20 08:30 0.9 % Sodium Chloride Flush 3 Ml Syringe IVFLUSH 3 ml QSHIFT [facility] Administration Sucralfate 1 gm 07/01/20 07:30 07/09/20 12:40 Sucralfate Oral Suspension 1 Gm/10 Ml Oral.Susp PO 1 gm QIDACHS [facility] Administration Vitamin D 50 mcg 07/01/20 09:00 07/09/20 08:20 Cholecalciferol (Vitamin D3) 25 Mcg Tablet PO 50 mcg DAILY [facility] Administration Labs CBC & Chem 7: 07/06/20 04:52 07/08/20 05:29 Microbiology Microbiology Results: Microbiology 07/04/20 16:15 Paracentesis Fluid Gram Stain - Final 07/04/20 16:15 Paracentesis Fluid Routine Culture - Final No growth after 2 days 07/04/20 16:15 Paracentesis Fluid Anaerobic Culture - Final NO GROWTH AFTER 5 DAYS 07/06/20 04:52 Blood - Venous Blood Culture - Preliminary No growth after 48 hours. 07/06/20 04:52 Blood - Venous Blood Culture - Preliminary No growth after 48 hours. 06/30/20 19:12 Blood - Venous Blood Culture - Final No growth after 5 days. 06/30/20 19:08 Blood - Venous Blood Culture - Final No growth after 5 days. 07/01/20 06:57 Stool Stool Culture - Final 07/01/20 Unknown Urine Catheterized - Ch Catheter Urine Culture - Final No growth. 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 Acute Kidney Injury likely related to urate nephropathy, patient started on hemodialysis 07/03,uric acid level improved, patient is now hemodialysis dependent remains anuric initially patient was treated for hepatorenal syndrome with IV fluids albumin and Sandostatin Patient underwent renal biopsy 07/08, biopsy report is unrevealing therefore patient will undergo cystoscopy with retrograde by Dr. Langford to rule out component of obstruction willkeep him npo. Metabolic acidosis due to TREMAYNE is stable, BP remains low , continue midodrin, and hold nadolol and spironolactone. 2. Diarrhea resolved stool studies negative for C diff, stool cultures negative as well. 3. Cirrhosis / asictes (cause of cirrhosis unclear -- pt reports heavy drinking but stopped years ago, Hep C positive but viral load neg Patient is status post paracentesis 07/04, 2.5 L of clear yellowish fluid was drained, fluid cell count not suggestive of SBP , discontinued antibiotic, patient noted to have worsening abdominal distention, denies abdominal pain no shortness of breath will continue to follow LFTs stable, INR 1.3. 4. DM blood sugars blood sugars stable today , Lantus discontinued due to poor by mouth intake and low blood sugars. 5 acute on chronic anemia no active blood loss noted, Recent episode of Gi bleed h/h dropped but stable, no signs of active bleed , recent EGD showed esophageal varices as well as bleeding ulcer that was treated, continue omeprazole ,continue PPI and Carafate Procrit per Nephrology. 6. Stage II ulcer and perianal rash would continue frequent position change nystatin powder and foam dressing to ulcer will start Glucerna 7. Weakness and lethargy with low blood pressure stable. 8. Severe malnutrition cont Ensure b.i.d. and Brent to promote wound healing Disposition to be transferred to rehab for continued hemodialysis Full Code DVT pptx, Mechanical device due to previous life threatening GI bleed
[2020-07-09] MEDS: Heparin Sodium,Porcine 5,000 UNIT/ML VIAL 5000 UNIT INTRACATH (17:23)
--- NOTE | 2020-07-09 19:36 | PM.PNNEP ---
Subjective Subjective Date of Service: 07/09/20 Interval history: Seen and examined. Events noted Currently on HD s/p kidney bx with prelim results unrevealing Physical Exam Vital Signs: Vital Signs: Last Vital Signs Temp 98.9 F 07/09/20 19:02 Pulse 67 07/09/20 19:02 Resp 20 07/09/20 19:02 BP 98/51 L 07/09/20 19:02 Pulse Ox 96 07/09/20 19:02 Body Mass Index 22.6 Const: General: cooperative and no acute distress Orientation/consciousness: patient oriented x3 Eyes: General: appearance normal, both eyes and all related structures Resp: Effort & Inspection: normal respiratory effort and able to speak in complete sentences Cardio: Rate: regular rate Rhythm: regular rhythm GI: Palpation (GI): Firmness to palpation present (GI) Auscultation: normal bowel sounds Skin: General skin exam: no rashes or lesions noted Neuro: General: patient oriented x3 Cognition (Neuro): normal cognition Extrem: General: Yes normal to inspection and Yes no pedal edema Objective Data Labs CBC & Chem 7: 07/06/20 04:52 07/08/20 05:29 Labs: Laboratory Results - last 24 hr 07/07/20 07/08/20 07/09/20 13:24 19:46 07:31 POC Glucose 150 H 88 Hep Bs Antigen Negative Hep Bs Antibody NONREACTIVE Hep B Core Total Ab Nonreactive Hepatitis C Ab (EIA) Reactive H 07/09/20 07/09/20 12:37 15:56 POC Glucose 77 94 Hep Bs Antigen Hep Bs Antibody Hep B Core Total Ab Hepatitis C Ab (EIA) Microbiology Microbiology Results: Microbiology 07/04/20 16:15 Paracentesis Fluid Gram Stain - Final 07/04/20 16:15 Paracentesis Fluid Routine Culture - Final No growth after 2 days 07/04/20 16:15 Paracentesis Fluid Anaerobic Culture - Final NO GROWTH AFTER 5 DAYS 07/06/20 04:52 Blood - Venous Blood Culture - Preliminary No growth after 48 hours. 07/06/20 04:52 Blood - Venous Blood Culture - Preliminary No growth after 48 hours. 06/30/20 19:12 Blood - Venous Blood Culture - Final No growth after 5 days. 06/30/20 19:08 Blood - Venous Blood Culture - Final No growth after 5 days. 07/01/20 06:57 Stool Stool Culture - Final 07/01/20 Unknown Urine Catheterized - Ch Catheter Urine Culture - Final No growth. Assessment & Plan Assessment and plan (1) Acute renal failure: Status: Acute (2) Acute dehydration: Status: Acute (3) GI bleed: Status: Acute (4) Diarrhea: Status: Acute (5) Metabolic acidosis: Status: Acute Assessment and Plan: This is a 70-year-old male past medical history as above incluidng cirrhosis which apears relatively compensated at this time who presents to the hospital after recent discharge complaining of diarrhea as well as poor oral intake found to have severe ANURIC TREMAYNE and metabolic acidosis now HD dependnet 1. Anuric Acute Kidney Injury: s/p HD started 07/03 ( has new Pcath as prior non-tunnelc ath fell out) w/u thus far suggests acute urate nephropathy but kidney bx nit supportive of this andgiven neg kidney bxresult raises ques of noemi OBS w/o hydro as casue of ANURIC TREMAYNE 2. AGMA/NAGMA: resolved 3. intravascular eff arterial vol depleted on exam with incr ascities REC: urol to proceed with cysto/retrogad and place stents if needed; track UOP/renal func;; avoid NToxins; arranging outpt HD spot at [place] unit will follow clsoely with team Time Spent With Patient Time: Total time spent is greater than 50% in coordination of care (as documented) at patient's floor/unit and/or counseling patient:
[2020-07-09 19:55] LABS: Glucose, Whole Blood 78 mg/dL (60-115)
[2020-07-10] VITALS (16 sets, daily range): BP systolic 84–110; BP diastolic 47–63; PULSE 56–88; RESP 12–20; TEMP 36.2–36.8; O2SAT 94–98
[2020-07-10 07:26] LABS: Glucose, Whole Blood 65 mg/dL (60-115)
[2020-07-10] MEDS: Midodrine HCl 10 MG TABLET 20 MG PO ×2 (08:35→16:00)
[2020-07-10] MEDS: Nystatin Cream 15 GM TUBE 1 APPL TOPICAL ×2 (08:36→21:35)
[2020-07-10] MEDS: 0.9 % Sodium Chloride Flush 3 ML SYRINGE IVFLUSH ×3 (08:46→21:36)
[2020-07-10 09:35] LABS: Glucose, Whole Blood 56 mg/dL (60-115)
[2020-07-10 10:33] LABS: Glucose, Whole Blood 127 mg/dL (60-115)
--- NOTE | 2020-07-10 10:46 | P.CONAN_ITS ---
HPI - Anesthesia Eval Consult details Narrative: 70 yo male patient with anuria ? 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 (Acute) Hyperlipidemia LDL goal <100 (Acute) Essential hypertension (Acute) Diarrhea (Acute) Past Medical History Medical History (Updated 07/10/20 @ 12:24 by Leda Van) Anemia Ascites Cirrhosis Esophageal varices Essential hypertension Frailty GERD (gastroesophageal reflux disease) GI bleed Hyperlipidemia LDL goal <100 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 Type 2 diabetes mellitus with hyperglycemia Weakness Family History Family History Father Diabetes Mother Breast cancer Diabetes Cardiovascular disease Brother Diabetes Sister Diabetes Family history of problems with anesthesia: No Surgical History Surgical History History of liver biopsy History of Problems with Anesthesia: No Social History Social History Household Members: Family Housing: Unknown / Unable to assess Alcohol intake: former Smoking Status: Former smoker Smoked in Last 30 Days: No Second Hand Smoke Exposure: No Use of substances other than those prescribed or required for medical reasons: Yes Substance Use Frequency: Occasionally Currently Displaying Signs/Symptoms of Drug Intoxication Withdrawal: No Any prior treatment program specific to substance use: No Have you been hit, kicked, punched, or otherwise hurt by someone within the past year? If so, by whom?: No Do you feel safe in your current relationship?: Yes Is there a partner from a previous relationship who is making you feel unsafe now?: No Are you made to feel afraid or neglected: No Advance Directives: No Advance Directives Information Provided: Yes Do you have thoughts of harming others: None Do you have a plan to hurt others: No Plan Recently lost weight without trying: No service: No Current occupational status: retired [employer] Allergies Allergy/AdvReac Type Severity Reaction Status Date / Time No Known Allergies Allergy Verified 05/26/20 10:49 Active Medications: Current Medications Generic Name Dose Route Start Last Admin Trade Name Jana PRN Reason Stop Dose Admin Ascorbic Acid 500 mg 07/01/20 09:00 07/10/20 08:15 Ascorbic Acid 500 Mg Tablet PO Not Given DAILY [facility] Heparin Sodium (Porcine) 5,000 unit 07/04/20 16:45 07/09/20 17:23 Heparin Sodium,Porcine 5,000 Unit/Ml Vial INTRACATH 5,000 unit MOWEFR@1645 [facility] Administration Sodium Chloride 1,000 mls @ 50 mls/hr 07/10/20 10:45 Ns IVCONT .Q20H [facility] Insulin Human Lispro 0 unit 07/01/20 07:30 07/10/20 08:14 Insulin Lispro 100 Unit/Ml 3 Ml Vial SUBCUT Not Given QIDACHS [facility] Protocol Levofloxacin 500 mg 07/10/20 11:30 Levofloxacin 500 Mg Tablet PO 07/10/20 11:31 ONCE ONE Midodrine 20 mg 07/02/20 15:00 07/10/20 08:35 Midodrine Hcl 10 Mg Tablet PO 20 mg TID [facility] Administration Nystatin 1 appl 07/01/20 21:00 07/10/20 08:36 Nystatin Cream 15 Gm Tube TOPICAL 1 appl BID [facility] Administration Protocol Omeprazole 20 mg 07/04/20 06:30 07/10/20 04:48 Omeprazole 20 Mg Capsule.Dr PO Not Given DAILY@0630 [facility] Ondansetron HCl 4 mg 07/01/20 02:11 07/06/20 09:08 Ondansetron Hcl 4 Mg/2 Ml Vial IVPUSH 4 mg Q8H PRN Administration Nausea and Vomiting Oxycodone HCl 2.5 mg 07/05/20 13:12 07/08/20 21:40 Oxycodone Hcl Immed Release 5 Mg Tablet PO 2.5 mg Q8H PRN Administration Pain, Severe (Pain Scale 7-10) Pharmacy Consult 1 each 06/30/20 18:08 Consult Rx Perform Med Rec MISCELLANE ONCE PRN Consult order Sodium Chloride 3 ml 07/01/20 02:11 07/10/20 08:46 0.9 % Sodium Chloride Flush 3 Ml Syringe IVFLUSH 3 ml QSHIFT [facility] Administration Sucralfate 1 gm 07/01/20 07:30 07/10/20 08:15 Sucralfate Oral Suspension 1 Gm/10 Ml Oral.Susp PO Not Given QIDACHS [facility] Vitamin D 50 mcg 07/01/20 09:00 07/10/20 08:15 Cholecalciferol (Vitamin D3) 25 Mcg Tablet PO Not Given DAILY [facility] Home Medications Medication Instructions Recorded Confirmed Last Taken Type ascorbic acid (vitamin C) 500 mg 500 mg PO DAILY 02/19/20 06/30/20 Unknown History tablet cholecalciferol (vitamin D3) 50 50 mcg PO QAM 02/19/20 06/30/20 Unknown History mcg (2,000 unit) tablet ferrous sulfate 325 mg (65 mg 325 mg PO QAM 02/19/20 06/30/20 Unknown History iron) tablet hydrocodone 5 mg-acetaminophen 325 1 tab PO Q8H PRN 02/19/20 06/30/20 Unknown History mg tablet tamsulosin 0.4 mg capsule 0.4 mg PO BEDTIME 02/19/20 06/30/20 Unknown History atorvastatin 40 mg tablet 40 mg PO BEDTIME tab 03/25/20 06/30/20 Unknown History gabapentin 300 mg capsule 300 mg PO BID cap 04/28/20 06/30/20 Unknown History insulin aspart U-100 [Novolog 6 unit SUBCUT TID 06/30/20 06/30/20 Unknown History Flexpen U-100 Insulin] insulin glargine [Basaglar KwikPen 14 unit SUBCUT DAILY 06/30/20 06/30/20 Unknown History U-100 Insulin] sucralfate 10 ml PO QIDACHS 06/30/20 06/30/20 Unknown History Exam Exam Date and Time: July 10, 2020 1046 Height,Weight and Vital Signs: Height 5 ft 6 in Weight 63.503 kg Last Vital Signs Temp 97.5 F 07/10/20 07:43 Pulse 67 07/10/20 07:43 Resp 17 07/10/20 07:43 BP 96/58 L 07/10/20 07:43 Pulse Ox 97 07/10/20 07:43 Vital Signs Temp Pulse Resp BP Pulse Ox 07/10/20 12:13 98.1 F 70 16 103/54 L 97 07/10/20 11:21 97.8 F 63 19 101/60 98 07/10/20 10:47 67 96/58 L 97 07/10/20 07:43 97.5 F 67 17 96/58 L 97 07/10/20 04:11 98.2 F 72 18 100/61 98 07/09/20 23:59 98.2 F 68 18 90/54 L 96 07/09/20 23:03 73 99/57 L 07/09/20 19:02 98.9 F 67 20 98/51 L 96 07/09/20 17:25 65 101/53 L 07/09/20 15:09 99.2 F 65 20 101/53 L 96 07/09/20 13:00 97.5 F 72 18 92/47 L 98 07/09/20 12:35 63 98/60 97 Pertinent Lab Results Pertinent Lab Results: Laboratory Tests 06/30/20 06/30/20 06/30/20 19:08 19:08 19:08 WBC 11.8 H RBC 3.18 L Hgb 9.4 L Hct 29.3 L MCV 92.1 MCH 29.6 MCHC 32.1 RDW 17.4 H Plt Count 437 H D MPV 10.4 Immature Gran % (Auto) 0.5 H Neut % (Auto) 84.7 H Lymph % (Auto) 9.0 L [place] % (Auto) 5.2 Eos % (Auto) 0.3 Baso % (Auto) 0.3 Lymph # (Auto) 1.1 L [place] # (Auto) 0.6 Eos # (Auto) 0.0 Baso # (Auto) 0.0 Abs Immat Gran (auto) 0.06 H Absolute Neuts (auto) 10.0 H Absolute Nucleated RBC 0.000 Nucleated RBC % (auto) 0.0 G6PD PT 14.1 H INR 1.2 H APTT 36.1 VBG pH VBG pCO2 VBG pO2 VBG HCO3 VBG O2 Saturation VBG Base Excess Sodium 137 Potassium 5.3 H D Chloride 102 Carbon Dioxide 15 L Anion Gap 25 H BUN 76 H D Creatinine 6.76 H* Estim Creat Clear Calc 9.3 Estimated GFR 8 POC Glucose Random Glucose 187 H D Lactic Acid Uric Acid Calcium 8.7 D Phosphorus Magnesium 2.7 H Total Bilirubin 1.5 H Direct Bilirubin 1.2 H AST 129 H ALT 41 H Alkaline Phosphatase 742 H D Ammonia Total Creatine Kinase Troponin I High Sens B-Natriuretic Peptide Total Protein 7.4 D Albumin 3.3 L D Lipase 137 H Urine Color Urine Appearance Urine pH Ur Specific [place] Urine Protein Urine Glucose (UA) Urine Ketones Urine Blood Urine Nitrite Ur Leukocyte Esterase Urine RBC Urine WBC Ur Squamous Epith Cells Amorphous Sediment Urine Bacteria Hyaline Casts Granular Casts Urine Mucus Urine Yeast Urine Osmolality Ur Random Sodium Urine Creatinine Peritoneal WBC Peritoneal RBC Periton Neutrophils Periton Lymphocytes Peritoneal Monocytes Peritoneal Eosinophils Peritoneal Basophils Peritoneal Other Cells Stool Occult Blood Urine Opiates Screen Ur Barbiturates Screen Ur Phencyclidine Scrn Ur Amphetamines Screen U Benzodiazepines Scrn Urine Cocaine Screen U Marijuana (THC) Screen Ethyl Alcohol LES Screen LES Titer LES Titer 2 LES Titer 3 LES Pattern LES Pattern 2 LES Pattern 3 Proteinase 3 (PR3) Ab Myeloperoxidase Ab Complement C3 Complement C4 C. difficile Toxin A&B C. difficile Antigen C. difficile Interpret COVID-19 ([facility]) COVID-19 Clin Com Hep Bs Antigen Hep Bs Antibody Hep B Core Total Ab Hepatitis C Ab (EIA) Ur L.pneumophila Ag Ur Strep pneumoniae Ag Blood Type Antibody Screen Crossmatch 06/30/20 06/30/20 06/30/20 19:08 19:08 19:08 WBC RBC Hgb Hct MCV MCH MCHC RDW Plt Count MPV Immature Gran % (Auto) Neut % (Auto) Lymph % (Auto) [place] % (Auto) Eos % (Auto) Baso % (Auto) Lymph # (Auto) [place] # (Auto) Eos # (Auto) Baso # (Auto) Abs Immat Gran (auto) Absolute Neuts (auto) Absolute Nucleated RBC Nucleated RBC % (auto) G6PD PT INR APTT VBG pH VBG pCO2 VBG pO2 VBG HCO3 VBG O2 Saturation VBG Base Excess Sodium Potassium Chloride Carbon Dioxide Anion Gap BUN Creatinine Estim Creat Clear Calc Estimated GFR POC Glucose Random Glucose Lactic Acid Uric Acid Calcium Phosphorus Magnesium Total Bilirubin Direct Bilirubin AST ALT Alkaline Phosphatase Ammonia Total Creatine Kinase Troponin I High Sens 7.5 B-Natriuretic Peptide 20 Total Protein Albumin Lipase Cancelled Urine Color Urine Appearance Urine pH Ur Specific [place] Urine Protein Urine Glucose (UA) Urine Ketones Urine Blood Urine Nitrite Ur Leukocyte Esterase Urine RBC Urine WBC Ur Squamous Epith Cells Amorphous Sediment Urine Bacteria Hyaline Casts Granular Casts Urine Mucus Urine Yeast Urine Osmolality Ur Random Sodium Urine Creatinine Peritoneal WBC Peritoneal RBC Periton Neutrophils Periton Lymphocytes Peritoneal Monocytes Peritoneal Eosinophils Peritoneal Basophils Peritoneal Other Cells Stool Occult Blood Urine Opiates Screen Ur Barbiturates Screen Ur Phencyclidine Scrn Ur Amphetamines Screen U Benzodiazepines Scrn Urine Cocaine Screen U Marijuana (THC) Screen Ethyl Alcohol LES Screen LES Titer LES Titer 2 LES Titer 3 LES Pattern LES Pattern 2 LES Pattern 3 Proteinase 3 (PR3) Ab Myeloperoxidase Ab Complement C3 Complement C4 C. difficile Toxin A&B C. difficile Antigen C. difficile Interpret COVID-19 ([facility]) Negative COVID-19 Clin Com See Note Hep Bs Antigen Hep Bs Antibody Hep B Core Total Ab Hepatitis C Ab (EIA) Ur L.pneumophila Ag Ur Strep pneumoniae Ag Blood Type Antibody Screen Crossmatch 06/30/20 06/30/20 06/30/20 19:08 19:08 19:08 WBC RBC Hgb Hct MCV MCH MCHC RDW Plt Count MPV Immature Gran % (Auto) Neut % (Auto) Lymph % (Auto) [place] % (Auto) Eos % (Auto) Baso % (Auto) Lymph # (Auto) [place] # (Auto) Eos # (Auto) Baso # (Auto) Abs Immat Gran (auto) Absolute Neuts (auto) Absolute Nucleated RBC Nucleated RBC % (auto) G6PD PT INR APTT VBG pH VBG pCO2 VBG pO2 VBG HCO3 VBG O2 Saturation VBG Base Excess Sodium Potassium Chloride Carbon Dioxide Anion Gap BUN Creatinine Estim Creat Clear Calc Estimated GFR POC Glucose Random Glucose Lactic Acid 1.7 Uric Acid Calcium Phosphorus Magnesium Total Bilirubin Direct Bilirubin AST ALT Alkaline Phosphatase Ammonia 29 Total Creatine Kinase Troponin I High Sens B-Natriuretic Peptide Total Protein Albumin Lipase Urine Color Urine Appearance Urine pH Ur Specific [place] Urine Protein Urine Glucose (UA) Urine Ketones Urine Blood Urine Nitrite Ur Leukocyte Esterase Urine RBC Urine WBC Ur Squamous Epith Cells Amorphous Sediment Urine Bacteria Hyaline Casts Granular Casts Urine Mucus Urine Yeast Urine Osmolality Ur Random Sodium Urine Creatinine Peritoneal WBC Peritoneal RBC Periton Neutrophils Periton Lymphocytes Peritoneal Monocytes Peritoneal Eosinophils Peritoneal Basophils Peritoneal Other Cells Stool Occult Blood Urine Opiates Screen Ur Barbiturates Screen Ur Phencyclidine Scrn Ur Amphetamines Screen U Benzodiazepines Scrn Urine Cocaine Screen U Marijuana (THC) Screen Ethyl Alcohol < 10 LES Screen LES Titer LES Titer 2 LES Titer 3 LES Pattern LES Pattern 2 LES Pattern 3 Proteinase 3 (PR3) Ab Myeloperoxidase Ab Complement C3 Complement C4 C. difficile Toxin A&B C. difficile Antigen C. difficile Interpret COVID-19 ([facility]) COVID-19 Clin Com Hep Bs Antigen Hep Bs Antibody Hep B Core Total Ab Hepatitis C Ab (EIA) Ur L.pneumophila Ag Ur Strep pneumoniae Ag Blood Type Antibody Screen Crossmatch 06/30/20 06/30/20 06/30/20 19:08 20:41 20:41 WBC RBC Hgb Hct MCV MCH MCHC RDW Plt Count MPV Immature Gran % (Auto) Neut % (Auto) Lymph % (Auto) [place] % (Auto) Eos % (Auto) Baso % (Auto) Lymph # (Auto) [place] # (Auto) Eos # (Auto) Baso # (Auto) Abs Immat Gran (auto) Absolute Neuts (auto) Absolute Nucleated RBC Nucleated RBC % (auto) G6PD PT INR APTT VBG pH VBG pCO2 VBG pO2 VBG HCO3 VBG O2 Saturation VBG Base Excess Sodium Potassium Chloride Carbon Dioxide Anion Gap BUN Creatinine Estim Creat Clear Calc Estimated GFR POC Glucose Random Glucose Lactic Acid Uric Acid Calcium Phosphorus Magnesium Total Bilirubin Direct Bilirubin AST ALT Alkaline Phosphatase Ammonia Total Creatine Kinase Troponin I High Sens B-Natriuretic Peptide Total Protein Albumin Lipase Urine Color Urine Appearance Urine pH Ur Specific [place] Urine Protein Urine Glucose (UA) Urine Ketones Urine Blood Urine Nitrite Ur Leukocyte Esterase Urine RBC Urine WBC Ur Squamous Epith Cells Amorphous Sediment Urine Bacteria Hyaline Casts Granular Casts Urine Mucus Urine Yeast Urine Osmolality 327 L Ur Random Sodium < 20.0 Urine Creatinine 513.53 Peritoneal WBC Peritoneal RBC Periton Neutrophils Periton Lymphocytes Peritoneal Monocytes Peritoneal Eosinophils Peritoneal Basophils Peritoneal Other Cells Stool Occult Blood POS Urine Opiates Screen Ur Barbiturates Screen Ur Phencyclidine Scrn Ur Amphetamines Screen U Benzodiazepines Scrn Urine Cocaine Screen U Marijuana (THC) Screen Ethyl Alcohol LES Screen LES Titer LES Titer 2 LES Titer 3 LES Pattern LES Pattern 2 LES Pattern 3 Proteinase 3 (PR3) Ab Myeloperoxidase Ab Complement C3 Complement C4 C. difficile Toxin A&B C. difficile Antigen C. difficile Interpret COVID-19 ([facility]) COVID-19 Clin Com Hep Bs Antigen Hep Bs Antibody Hep B Core Total Ab Hepatitis C Ab (EIA) Ur L.pneumophila Ag Ur Strep pneumoniae Ag Blood Type Antibody Screen Crossmatch 07/01/20 07/01/20 07/01/20 00:15 00:15 00:23 WBC RBC Hgb Hct MCV MCH MCHC RDW Plt Count MPV Immature Gran % (Auto) Neut % (Auto) Lymph % (Auto) [place] % (Auto) Eos % (Auto) Baso % (Auto) Lymph # (Auto) [place] # (Auto) Eos # (Auto) Baso # (Auto) Abs Immat Gran (auto) Absolute Neuts (auto) Absolute Nucleated RBC Nucleated RBC % (auto) G6PD PT INR APTT VBG pH 7.24 L VBG pCO2 27 VBG pO2 206 VBG HCO3 11 L VBG O2 Saturation 100.0 VBG Base Excess -13.9 Sodium 138 Potassium 5.0 Chloride 107 Carbon Dioxide 13 L Anion Gap 23 H BUN 71 H Creatinine 6.32 H* Estim Creat Clear Calc 10.0 Estimated GFR 9 POC Glucose Random Glucose 135 H Lactic Acid Uric Acid Calcium 8.1 L D Phosphorus Magnesium Total Bilirubin Direct Bilirubin AST ALT Alkaline Phosphatase Ammonia Total Creatine Kinase Troponin I High Sens B-Natriuretic Peptide Total Protein Albumin Lipase Urine Color Urine Appearance Urine pH Ur Specific [place] Urine Protein Urine Glucose (UA) Urine Ketones Urine Blood Urine Nitrite Ur Leukocyte Esterase Urine RBC Urine WBC Ur Squamous Epith Cells Amorphous Sediment Urine Bacteria Hyaline Casts Granular Casts Urine Mucus Urine Yeast Urine Osmolality Ur Random Sodium Urine Creatinine Peritoneal WBC Peritoneal RBC Periton Neutrophils Periton Lymphocytes Peritoneal Monocytes Peritoneal Eosinophils Peritoneal Basophils Peritoneal Other Cells Stool Occult Blood Urine Opiates Screen Ur Barbiturates Screen Ur Phencyclidine Scrn Ur Amphetamines Screen U Benzodiazepines Scrn Urine Cocaine Screen U Marijuana (THC) Screen Ethyl Alcohol LES Screen LES Titer LES Titer 2 LES Titer 3 LES Pattern LES Pattern 2 LES Pattern 3 Proteinase 3 (PR3) Ab Myeloperoxidase Ab Complement C3 Complement C4 C. difficile Toxin A&B C. difficile Antigen C. difficile Interpret COVID-19 ([facility]) COVID-19 Clin Com Hep Bs Antigen Hep Bs Antibody Hep B Core Total Ab Hepatitis C Ab (EIA) Ur L.pneumophila Ag Ur Strep pneumoniae Ag Blood Type O Positive Antibody Screen NEGATIVE Crossmatch See Detail 07/01/20 07/01/20 07/01/20 04:14 04:14 06:57 WBC 11.7 H RBC 2.91 L Hgb 8.6 L Hct 27.1 L MCV 93.1 MCH 29.6 MCHC 31.7 RDW 17.5 H Plt Count 362 MPV 10.3 Immature Gran % (Auto) 0.5 H Neut % (Auto) 86.3 H Lymph % (Auto) 7.6 L [place] % (Auto) 5.1 Eos % (Auto) 0.4 Baso % (Auto) 0.1 Lymph # (Auto) 0.9 L [place] # (Auto) 0.6 Eos # (Auto) 0.1 Baso # (Auto) 0.0 Abs Immat Gran (auto) 0.06 H Absolute Neuts (auto) 10.1 H Absolute Nucleated RBC 0.000 Nucleated RBC % (auto) 0.0 G6PD PT INR APTT VBG pH VBG pCO2 VBG pO2 VBG HCO3 VBG O2 Saturation VBG Base Excess Sodium 138 Potassium 4.6 Chloride 107 Carbon Dioxide 13 L Anion Gap 23 H BUN 73 H Creatinine 6.11 H* Estim Creat Clear Calc 10.3 Estimated GFR 9 POC Glucose Random Glucose 134 H Lactic Acid Uric Acid Calcium 8.0 L Phosphorus Magnesium Total Bilirubin Direct Bilirubin AST ALT Alkaline Phosphatase Ammonia Total Creatine Kinase Troponin I High Sens B-Natriuretic Peptide Total Protein Albumin Lipase Urine Color Urine Appearance Urine pH Ur Specific [place] Urine Protein Urine Glucose (UA) Urine Ketones Urine Blood Urine Nitrite Ur Leukocyte Esterase Urine RBC Urine WBC Ur Squamous Epith Cells Amorphous Sediment Urine Bacteria Hyaline Casts Granular Casts Urine Mucus Urine Yeast Urine Osmolality Ur Random Sodium Urine Creatinine Peritoneal WBC Peritoneal RBC Periton Neutrophils Periton Lymphocytes Peritoneal Monocytes Peritoneal Eosinophils Peritoneal Basophils Peritoneal Other Cells Stool Occult Blood Urine Opiates Screen Ur Barbiturates Screen Ur Phencyclidine Scrn Ur Amphetamines Screen U Benzodiazepines Scrn Urine Cocaine Screen U Marijuana (THC) Screen Ethyl Alcohol LES Screen LES Titer LES Titer 2 LSE Titer 3 LES Pattern LES Pattern 2 LES Pattern 3 Proteinase 3 (PR3) Ab Myeloperoxidase Ab Complement C3 Complement C4 C. difficile Toxin A&B Negative C. difficile Antigen Negative C. difficile Interpret SEE NOTE COVID-19 ([facility]) COVID-19 Clin Com Hep Bs Antigen Hep Bs Antibody Hep B Core Total Ab Hepatitis C Ab (EIA) Ur L.pneumophila Ag Ur Strep pneumoniae Ag Blood Type Antibody Screen Crossmatch 07/01/20 07/01/20 07/01/20 07:46 11:11 11:45 WBC RBC Hgb Hct MCV MCH MCHC RDW Plt Count MPV Immature Gran % (Auto) Neut % (Auto) Lymph % (Auto) [place] % (Auto) Eos % (Auto) Baso % (Auto) Lymph # (Auto) [place] # (Auto) Eos # (Auto) Baso # (Auto) Abs Immat Gran (auto) Absolute Neuts (auto) Absolute Nucleated RBC Nucleated RBC % (auto) G6PD PT INR APTT VBG pH VBG pCO2 VBG pO2 VBG HCO3 VBG O2 Saturation VBG Base Excess Sodium Potassium Chloride Carbon Dioxide Anion Gap BUN Creatinine Estim Creat Clear Calc Estimated GFR POC Glucose 149 H 138 H Random Glucose Lactic Acid Uric Acid Calcium Phosphorus Magnesium Total Bilirubin Direct Bilirubin AST ALT Alkaline Phosphatase Ammonia Total Creatine Kinase Troponin I High Sens B-Natriuretic Peptide Total Protein Albumin Lipase Urine Color DARK YELLOW Urine Appearance CLOUDY Urine pH 5.0 Ur Specific [place] >= 1.030 H Urine Protein 2+ H Urine Glucose (UA) NEG Urine Ketones 5 Urine Blood 3+ H Urine Nitrite NEG Ur Leukocyte Esterase TRACE H Urine RBC 30-49 H Urine WBC 0-2 Ur Squamous Epith Cells TRACE Amorphous Sediment 1+ Urine Bacteria 1+ Hyaline Casts Granular Casts Urine Mucus Urine Yeast Urine Osmolality Ur Random Sodium Urine Creatinine Peritoneal WBC Peritoneal RBC Periton Neutrophils Periton Lymphocytes Peritoneal Monocytes Peritoneal Eosinophils Peritoneal Basophils Peritoneal Other Cells Stool Occult Blood Urine Opiates Screen Ur Barbiturates Screen Ur Phencyclidine Scrn Ur Amphetamines Screen U Benzodiazepines Scrn Urine Cocaine Screen U Marijuana (THC) Screen Ethyl Alcohol LES Screen LES Titer LES Titer 2 LES Titer 3 LES Pattern LES Pattern 2 LES Pattern 3 Proteinase 3 (PR3) Ab Myeloperoxidase Ab Complement C3 Complement C4 C. difficile Toxin A&B C. difficile Antigen C. difficile Interpret COVID-19 ([facility]) COVID-19 Clin Com Hep Bs Antigen Hep Bs Antibody Hep B Core Total Ab Hepatitis C Ab (EIA) Ur L.pneumophila Ag Ur Strep pneumoniae Ag Blood Type Antibody Screen Crossmatch 07/01/20 07/01/20 07/01/20 11:45 11:52 16:18 WBC RBC Hgb Hct MCV MCH MCHC RDW Plt Count MPV Immature Gran % (Auto) Neut % (Auto) Lymph % (Auto) [place] % (Auto) Eos % (Auto) Baso % (Auto) Lymph # (Auto) [place] # (Auto) Eos # (Auto) Baso # (Auto) Abs Immat Gran (auto) Absolute Neuts (auto) Absolute Nucleated RBC Nucleated RBC % (auto) G6PD PT INR APTT VBG pH VBG pCO2 VBG pO2 VBG HCO3 VBG O2 Saturation VBG Base Excess Sodium 138 Potassium 3.9 Chloride 102 Carbon Dioxide 18 L Anion Gap 22 H BUN 76 H Creatinine 6.14 H* Estim Creat Clear Calc 10.3 Estimated GFR 9 POC Glucose Random Glucose 165 H Lactic Acid Uric Acid Calcium 7.9 L Phosphorus Magnesium Total Bilirubin Direct Bilirubin AST ALT Alkaline Phosphatase Ammonia Total Creatine Kinase Troponin I High Sens B-Natriuretic Peptide Total Protein Albumin Lipase Urine Color Urine Appearance Urine pH Ur Specific [place] Urine Protein Urine Glucose (UA) Urine Ketones Urine Blood Urine Nitrite Ur Leukocyte Esterase Urine RBC Urine WBC Ur Squamous Epith Cells Amorphous Sediment Urine Bacteria Hyaline Casts Granular Casts Urine Mucus Urine Yeast Urine Osmolality Ur Random Sodium Urine Creatinine Peritoneal WBC Peritoneal RBC Periton Neutrophils Periton Lymphocytes Peritoneal Monocytes Peritoneal Eosinophils Peritoneal Basophils Peritoneal Other Cells Stool Occult Blood Urine Opiates Screen Not Detected Ur Barbiturates Screen Not Detected Ur Phencyclidine Scrn Not Detected Ur Amphetamines Screen Not Detected U Benzodiazepines Scrn Not Detected Urine Cocaine Screen Not Detected U Marijuana (THC) Screen Not Detected Ethyl Alcohol LES Screen LES Titer LES Titer 2 LES Titer 3 LES Pattern LES Pattern 2 LES Pattern 3 Proteinase 3 (PR3) Ab Myeloperoxidase Ab Complement C3 Complement C4 C. difficile Toxin A&B C. difficile Antigen C. difficile Interpret COVID-19 ([facility]) COVID-19 Clin Com Hep Bs Antigen Hep Bs Antibody Hep B Core Total Ab Hepatitis C Ab (EIA) Ur L.pneumophila Ag Ur Strep pneumoniae Ag Not Detected Blood Type Antibody Screen Crossmatch 07/01/20 07/01/20 07/02/20 16:19 19:55 05:25 WBC 7.9 RBC 2.53 L Hgb 7.3 L Hct 22.6 L MCV 89.3 MCH 28.9 MCHC 32.3 RDW 17.2 H Plt Count 310 MPV 11.0 Immature Gran % (Auto) Neut % (Auto) Lymph % (Auto) [place] % (Auto) Eos % (Auto) Baso % (Auto) Lymph # (Auto) [place] # (Auto) Eos # (Auto) Baso # (Auto) Abs Immat Gran (auto) Absolute Neuts (auto) Absolute Nucleated RBC 0.000 Nucleated RBC % (auto) 0.0 G6PD PT INR APTT VBG pH VBG pCO2 VBG pO2 VBG HCO3 VBG O2 Saturation VBG Base Excess Sodium Potassium Chloride Carbon Dioxide Anion Gap BUN Creatinine Estim Creat Clear Calc Estimated GFR POC Glucose 156 H 124 H Random Glucose Lactic Acid Uric Acid Calcium Phosphorus Magnesium Total Bilirubin Direct Bilirubin AST ALT Alkaline Phosphatase Ammonia Total Creatine Kinase Troponin I High Sens B-Natriuretic Peptide Total Protein Albumin Lipase Urine Color Urine Appearance Urine pH Ur Specific [place] Urine Protein Urine Glucose (UA) Urine Ketones Urine Blood Urine Nitrite Ur Leukocyte Esterase Urine RBC Urine WBC Ur Squamous Epith Cells Amorphous Sediment Urine Bacteria Hyaline Casts Granular Casts Urine Mucus Urine Yeast Urine Osmolality Ur Random Sodium Urine Creatinine Peritoneal WBC Peritoneal RBC Periton Neutrophils Periton Lymphocytes Peritoneal Monocytes Peritoneal Eosinophils Peritoneal Basophils Peritoneal Other Cells Stool Occult Blood Urine Opiates Screen Ur Barbiturates Screen Ur Phencyclidine Scrn Ur Amphetamines Screen U Benzodiazepines Scrn Urine Cocaine Screen U Marijuana (THC) Screen Ethyl Alcohol LES Screen LES Titer LES Titer 2 LES Titer 3 LES Pattern LES Pattern 2 LES Pattern 3 Proteinase 3 (PR3) Ab Myeloperoxidase Ab Complement C3 Complement C4 C. difficile Toxin A&B C. difficile Antigen C. difficile Interpret COVID-19 ([facility]) COVID-19 Clin Com Hep Bs Antigen Hep Bs Antibody Hep B Core Total Ab Hepatitis C Ab (EIA) Ur L.pneumophila Ag Ur Strep pneumoniae Ag Blood Type Antibody Screen Crossmatch 07/02/20 07/02/20 07/02/20 05:25 07:03 10:00 WBC RBC Hgb Hct MCV MCH MCHC RDW Plt Count MPV Immature Gran % (Auto) Neut % (Auto) Lymph % (Auto) [place] % (Auto) Eos % (Auto) Baso % (Auto) Lymph # (Auto) [place] # (Auto) Eos # (Auto) Baso # (Auto) Abs Immat Gran (auto) Absolute Neuts (auto) Absolute Nucleated RBC Nucleated RBC % (auto) G6PD PT INR APTT VBG pH VBG pCO2 VBG pO2 VBG HCO3 VBG O2 Saturation VBG Base Excess Sodium 139 Potassium 3.5 Chloride 95 L Carbon Dioxide 23 Anion Gap 25 H BUN 76 H Creatinine 6.38 H* Estim Creat Clear Calc 9.9 Estimated GFR 9 POC Glucose 149 H Random Glucose 158 H Lactic Acid Uric Acid Calcium 7.8 L Phosphorus Magnesium Total Bilirubin 1.3 H Direct Bilirubin 1.1 H AST 112 H ALT 34 Alkaline Phosphatase 533 H D Ammonia Total Creatine Kinase Troponin I High Sens B-Natriuretic Peptide Total Protein 6.2 L Albumin 3.5 Lipase Urine Color BROWN Urine Appearance TURBID Urine pH 6.5 Ur Specific [place] >= 1.030 H Urine Protein 3+ H Urine Glucose (UA) NEG Urine Ketones 5 Urine Blood 3+ H Urine Nitrite NEG Ur Leukocyte Esterase 2+ H Urine RBC TNTC H Urine WBC 10-14 H Ur Squamous Epith Cells 1+ Amorphous Sediment Urine Bacteria 2+ Hyaline Casts 1-4 Granular Casts 1-4 Urine Mucus 2+ Urine Yeast 2+ Urine Osmolality Ur Random Sodium Urine Creatinine Peritoneal WBC Peritoneal RBC Per[place] Neutrophils [place] Lymphocytes Peritoneal Monocytes Peritoneal Eosinophils Peritoneal Basophils Peritoneal Other Cells Stool Occult Blood Urine Opiates Screen Ur Barbiturates Screen Ur Phencyclidine Scrn Ur Amphetamines Screen U Benzodiazepines Scrn Urine Cocaine Screen U Marijuana (THC) Screen Ethyl Alcohol LES Screen LES Titer LES Titer 2 LES Titer 3 LES Pattern LES Pattern 2 LES Pattern 3 Proteinase 3 (PR3) Ab Myeloperoxidase Ab Complement C3 Complement C4 C. difficile Toxin A&B C. difficile Antigen C. difficile Interpret COVID-19 ([facility]) COVID-19 Clin Com Hep Bs Antigen Hep Bs Antibody Hep B Core Total Ab Hepatitis C Ab (EIA) Ur L.pneumophila Ag Ur Strep pneumoniae Ag Blood Type Antibody Screen Crossmatch 07/02/20 07/02/20 07/02/20 11:23 14:01 15:37 WBC RBC Hgb Hct MCV MCH MCHC RDW Plt Count MPV Immature Gran % (Auto) Neut % (Auto) Lymph % (Auto) [place] % (Auto) Eos % (Auto) Baso % (Auto) Lymph # (Auto) [place] # (Auto) Eos # (Auto) Baso # (Auto) Abs Immat Gran (auto) Absolute Neuts (auto) Absolute Nucleated RBC Nucleated RBC % (auto) G6PD PT 14.9 H INR 1.3 H APTT VBG pH VBG pCO2 VBG pO2 VBG HCO3 VBG O2 Saturation VBG Base Excess Sodium Potassium Chloride Carbon Dioxide Anion Gap BUN Creatinine Estim Creat Clear Calc Estimated GFR POC Glucose 185 H 91 Random Glucose Lactic Acid Uric Acid Calcium Phosphorus Magnesium Total Bilirubin Direct Bilirubin AST ALT Alkaline Phosphatase Ammonia Total Creatine Kinase Troponin I High Sens B-Natriuretic Peptide Total Protein Albumin Lipase Urine Color Urine Appearance Urine pH Ur Specific [place] Urine Protein Urine Glucose (UA) Urine Ketones Urine Blood Urine Nitrite Ur Leukocyte Esterase Urine RBC Urine WBC Ur Squamous Epith Cells Amorphous Sediment Urine Bacteria Hyaline Casts Granular Casts Urine Mucus Urine Yeast Urine Osmolality Ur Random Sodium Urine Creatinine Peritoneal WBC Peritoneal RBC Periton Neutrophils Periton Lymphocytes Peritoneal Monocytes Peritoneal Eosinophils Peritoneal Basophils Peritoneal Other Cells Stool Occult Blood Urine Opiates Screen Ur Barbiturates Screen Ur Phencyclidine Scrn Ur Amphetamines Screen U Benzodiazepines Scrn Urine Cocaine Screen U Marijuana (THC) Screen Ethyl Alcohol LES Screen LES Titer LES Titer 2 LES Titer 3 LES Pattern LES Pattern 2 LES Pattern 3 Proteinase 3 (PR3) Ab Myeloperoxidase Ab Complement C3 Complement C4 C. difficile Toxin A&B C. difficile Antigen C. difficile Interpret COVID-19 ([facility]) COVID-19 Clin Com Hep Bs Antigen Hep Bs Antibody Hep B Core Total Ab Hepatitis C Ab (EIA) Ur L.pneumophila Ag Ur Strep pneumoniae Ag Blood Type Antibody Screen Crossmatch 07/02/20 07/02/20 07/02/20 19:42 22:57 22:57 WBC RBC Hgb Hct MCV MCH MCHC RDW Plt Count MPV Immature Gran % (Auto) Neut % (Auto) Lymph % (Auto) [place] % (Auto) Eos % (Auto) Baso % (Auto) Lymph # (Auto) [place] # (Auto) Eos # (Auto) Baso # (Auto) Abs Immat Gran (auto) Absolute Neuts (auto) Absolute Nucleated RBC Nucleated RBC % (auto) G6PD PT INR APTT VBG pH VBG pCO2 VBG pO2 VBG HCO3 VBG O2 Saturation VBG Base Excess Sodium Potassium Chloride Carbon Dioxide Anion Gap BUN Creatinine Estim Creat Clear Calc Estimated GFR POC Glucose 131 H Random Glucose Lactic Acid Uric Acid Calcium Phosphorus Magnesium Total Bilirubin Direct Bilirubin AST ALT Alkaline Phosphatase Ammonia Total Creatine Kinase Troponin I High Sens B-Natriuretic Peptide Total Protein Albumin Lipase Urine Color Urine Appearance Urine pH Ur Specific [place] Urine Protein Urine Glucose (UA) Urine Ketones Urine Blood Urine Nitrite Ur Leukocyte Esterase Urine RBC Urine WBC Ur Squamous Epith Cells Amorphous Sediment Urine Bacteria Hyaline Casts Granular Casts Urine Mucus Urine Yeast Urine Osmolality Ur Random Sodium Urine Creatinine Peritoneal WBC Peritoneal RBC Periton Neutrophils Periton Lymphocytes Peritoneal Monocytes Peritoneal Eosinophils Peritoneal Basophils Peritoneal Other Cells Stool Occult Blood Urine Opiates Screen Ur Barbiturates Screen Ur Phencyclidine Scrn Ur Amphetamines Screen U Benzodiazepines Scrn Urine Cocaine Screen U Marijuana (THC) Screen Ethyl Alcohol LES Screen POSITIVE A LES Titer 1:80 H LES Titer 2 TNP LES Titer 3 TNP LES Pattern SEE NOTE LES Pattern 2 TNP LES Pattern 3 TNP Proteinase 3 (PR3) Ab <1.0 Myeloperoxidase Ab <1.0 Complement C3 130 Complement C4 49 C. difficile Toxin A&B C. difficile Antigen C. difficile Interpret COVID-19 ([facility]) COVID-19 Clin Com Hep Bs Antigen Hep Bs Antibody Hep B Core Total Ab Hepatitis C Ab (EIA) Ur L.pneumophila Ag Ur Strep pneumoniae Ag Blood Type Antibody Screen Crossmatch 07/02/20 07/02/20 07/02/20 22:57 Unknown Unknown WBC RBC Hgb Hct MCV MCH MCHC RDW Plt Count MPV Immature Gran % (Auto) Neut % (Auto) Lymph % (Auto) [place] % (Auto) Eos % (Auto) Baso % (Auto) Lymph # (Auto) [place] # (Auto) Eos # (Auto) Baso # (Auto) Abs Immat Gran (auto) Absolute Neuts (auto) Absolute Nucleated RBC Nucleated RBC % (auto) G6PD PT INR APTT VBG pH VBG pCO2 VBG pO2 VBG HCO3 VBG O2 Saturation VBG Base Excess Sodium Potassium Chloride Carbon Dioxide Anion Gap BUN Creatinine Estim Creat Clear Calc Estimated GFR POC Glucose Random Glucose Lactic Acid Uric Acid 19.2 H Calcium Phosphorus 5.5 H Magnesium Total Bilirubin Direct Bilirubin AST ALT Alkaline Phosphatase Ammonia Total Creatine Kinase 64 Troponin I High Sens B-Natriuretic Peptide Total Protein Albumin 3.9 Lipase Urine Color Urine Appearance Urine pH Ur Specific [place] Urine Protein Urine Glucose (UA) Urine Ketones Urine Blood Urine Nitrite Ur Leukocyte Esterase Urine RBC Urine WBC Ur Squamous Epith Cells Amorphous Sediment Urine Bacteria Hyaline Casts Granular Casts Urine Mucus Urine Yeast Urine Osmolality Ur Random Sodium < 20.0 Urine Creatinine 392.45 Peritoneal WBC Peritoneal RBC Periton Neutrophils Periton Lymphocytes Peritoneal Monocytes Peritoneal Eosinophils Peritoneal Basophils Peritoneal Other Cells Stool Occult Blood Urine Opiates Screen Ur Barbiturates Screen Ur Phencyclidine Scrn Ur Amphetamines Screen U Benzodiazepines Scrn Urine Cocaine Screen U Marijuana (THC) Screen Ethyl Alcohol LES Screen LES Titer LES Titer 2 LES Titer 3 LES Pattern LES Pattern 2 LES Pattern 3 Proteinase 3 (PR3) Ab Myeloperoxidase Ab Complement C3 Complement C4 C. difficile Toxin A&B C. difficile Antigen C. difficile Interpret COVID-19 ([facility]) COVID-19 Clin Com Hep Bs Antigen Hep Bs Antibody Hep B Core Total Ab Hepatitis C Ab (EIA) Ur L.pneumophila Ag Not Detected Ur Strep pneumoniae Ag Blood Type Antibody Screen Crossmatch 07/03/20 07/03/20 07/03/20 06:58 10:07 11:57 WBC RBC Hgb Hct MCV MCH MCHC RDW Plt Count MPV Immature Gran % (Auto) Neut % (Auto) Lymph % (Auto) [place] % (Auto) Eos % (Auto) Baso % (Auto) Lymph # (Auto) [place] # (Auto) Eos # (Auto) Baso # (Auto) Abs Immat Gran (auto) Absolute Neuts (auto) Absolute Nucleated RBC Nucleated RBC % (auto) G6PD Normal PT INR APTT VBG pH VBG pCO2 VBG pO2 VBG HCO3 VBG O2 Saturation VBG Base Excess Sodium Potassium Chloride Carbon Dioxide Anion Gap BUN Creatinine Estim Creat Clear Calc Estimated GFR POC Glucose 125 H 142 H Random Glucose Lactic Acid Uric Acid Calcium Phosphorus Magnesium Total Bilirubin Direct Bilirubin AST ALT Alkaline Phosphatase Ammonia Total Creatine Kinase Troponin I High Sens B-Natriuretic Peptide Total Protein Albumin Lipase Urine Color Urine Appearance Urine pH Ur Specific [place] Urine Protein Urine Glucose (UA) Urine Ketones Urine Blood Urine Nitrite Ur Leukocyte Esterase Urine RBC Urine WBC Ur Squamous Epith Cells Amorphous Sediment Urine Bacteria Hyaline Casts Granular Casts Urine Mucus Urine Yeast Urine Osmolality Ur Random Sodium Urine Creatinine Peritoneal WBC Peritoneal RBC Periton Neutrophils Periton Lymphocytes Peritoneal Monocytes Peritoneal Eosinophils Peritoneal Basophils Peritoneal Other Cells Stool Occult Blood Urine Opiates Screen Ur Barbiturates Screen Ur Phencyclidine Scrn Ur Amphetamines Screen U Benzodiazepines Scrn Urine Cocaine Screen U Marijuana (THC) Screen Ethyl Alcohol LES Screen LES Titer LES Titer 2 LES Titer 3 LES Pattern LES Pattern 2 LES Pattern 3 Proteinase 3 (PR3) Ab Myeloperoxidase Ab Complement C3 Complement C4 C. difficile Toxin A&B C. difficile Antigen C. difficile Interpret COVID-19 ([facility]) COVID-19 Clin Com Hep Bs Antigen Hep Bs Antibody Hep B Core Total Ab Hepatitis C Ab (EIA) Ur L.pneumophila Ag Ur Strep pneumoniae Ag Blood Type Antibody Screen Crossmatch 07/03/20 07/03/20 07/03/20 16:18 16:46 19:54 WBC RBC Hgb Hct MCV MCH MCHC RDW Plt Count MPV Immature Gran % (Auto) Neut % (Auto) Lymph % (Auto) [place] % (Auto) Eos % (Auto) Baso % (Auto) Lymph # (Auto) [place] # (Auto) Eos # (Auto) Baso # (Auto) Abs Immat Gran (auto) Absolute Neuts (auto) Absolute Nucleated RBC Nucleated RBC % (auto) G6PD PT INR APTT VBG pH VBG pCO2 VBG pO2 VBG HCO3 VBG O2 Saturation VBG Base Excess Sodium Potassium Chloride Carbon Dioxide Anion Gap BUN Creatinine Estim Creat Clear Calc Estimated GFR POC Glucose 81 96 Random Glucose Lactic Acid Uric Acid 8.1 H Calcium Phosphorus Magnesium Total Bilirubin Direct Bilirubin AST ALT Alkaline Phosphatase Ammonia Total Creatine Kinase Troponin I High Sens B-Natriuretic Peptide Total Protein Albumin Lipase Urine Color Urine Appearance Urine pH Ur Specific [place] Urine Protein Urine Glucose (UA) Urine Ketones Urine Blood Urine Nitrite Ur Leukocyte Esterase Urine RBC Urine WBC Ur Squamous Epith Cells Amorphous Sediment Urine Bacteria Hyaline Casts Granular Casts Urine Mucus Urine Yeast Urine Osmolality Ur Random Sodium Urine Creatinine Peritoneal WBC Peritoneal RBC Periton Neutrophils Periton Lymphocytes Peritoneal Monocytes Peritoneal Eosinophils Peritoneal Basophils Peritoneal Other Cells Stool Occult Blood Urine Opiates Screen Ur Barbiturates Screen Ur Phencyclidine Scrn Ur Amphetamines Screen U Benzodiazepines Scrn Urine Cocaine Screen U Marijuana (THC) Screen Ethyl Alcohol LES Screen LES Titer LES Titer 2 LES Titer 3 LES Pattern LES Pattern 2 LES Pattern 3 Proteinase 3 (PR3) Ab Myeloperoxidase Ab Complement C3 Complement C4 C. difficile Toxin A&B C. difficile Antigen C. difficile Interpret COVID-19 ([facility]) COVID-19 Clin Com Hep Bs Antigen Hep Bs Antibody Hep B Core Total Ab Hepatitis C Ab (EIA) Ur L.pneumophila Ag Ur Strep pneumoniae Ag Blood Type Antibody Screen Crossmatch 07/04/20 07/04/20 07/04/20 05:47 05:47 07:44 WBC 9.3 RBC 2.60 L Hgb 7.6 L Hct 24.3 L MCV 93.5 MCH 29.2 MCHC 31.3 RDW 17.9 H Plt Count 278 MPV 11.1 Immature Gran % (Auto) 0.3 Neut % (Auto) 79.4 H Lymph % (Auto) 9.5 L [place] % (Auto) 8.7 Eos % (Auto) 1.7 Baso % (Auto) 0.4 Lymph # (Auto) 0.9 L [place] # (Auto) 0.8 Eos # (Auto) 0.2 Baso # (Auto) 0.0 Abs Immat Gran (auto) 0.03 Absolute Neuts (auto) 7.4 Absolute Nucleated RBC 0.000 Nucleated RBC % (auto) 0.0 G6PD PT INR APTT VBG pH VBG pCO2 VBG pO2 VBG HCO3 VBG O2 Saturation VBG Base Excess Sodium 137 Potassium 3.5 Chloride 104 Carbon Dioxide 18 L Anion Gap 19 BUN 38 H Creatinine 4.49 H* Estim Creat Clear Calc 14.1 Estimated GFR 13 POC Glucose 84 Random Glucose 80 D Lactic Acid Uric Acid 9.9 H Calcium 8.2 L Phosphorus Magnesium Total Bilirubin Direct Bilirubin AST ALT Alkaline Phosphatase Ammonia Total Creatine Kinase Troponin I High Sens B-Natriuretic Peptide Total Protein Albumin Lipase Urine Color Urine Appearance Urine pH Ur Specific [place] Urine Protein Urine Glucose (UA) Urine Ketones Urine Blood Urine Nitrite Ur Leukocyte Esterase Urine RBC Urine WBC Ur Squamous Epith Cells Amorphous Sediment Urine Bacteria Hyaline Casts Granular Casts Urine Mucus Urine Yeast Urine Osmolality Ur Random Sodium Urine Creatinine Peritoneal WBC Peritoneal RBC Periton Neutrophils Periton Lymphocytes Peritoneal Monocytes Peritoneal Eosinophils Peritoneal Basophils Peritoneal Other Cells Stool Occult Blood Urine Opiates Screen Ur Barbiturates Screen Ur Phencyclidine Scrn Ur Amphetamines Screen U Benzodiazepines Scrn Urine Cocaine Screen U Marijuana (THC) Screen Ethyl Alcohol LES Screen LES Titer LES Titer 2 LES Titer 3 LES Pattern LES Pattern 2 LES Pattern 3 Proteinase 3 (PR3) Ab Myeloperoxidase Ab Complement C3 Complement C4 C. difficile Toxin A&B C. difficile Antigen C. difficile Interpret COVID-19 ([facility]) COVID-19 Clin Com Hep Bs Antigen Hep Bs Antibody Hep B Core Total Ab Hepatitis C Ab (EIA) Ur L.pneumophila Ag Ur Strep pneumoniae Ag Blood Type Antibody Screen Crossmatch 07/04/20 07/04/20 07/04/20 11:25 16:15 17:01 WBC RBC Hgb Hct MCV MCH MCHC RDW Plt Count MPV Immature Gran % (Auto) Neut % (Auto) Lymph % (Auto) [place] % (Auto) Eos % (Auto) Baso % (Auto) Lymph # (Auto) [place] # (Auto) Eos # (Auto) Baso # (Auto) Abs Immat Gran (auto) Absolute Neuts (auto) Absolute Nucleated RBC Nucleated RBC % (auto) G6PD PT INR APTT VBG pH VBG pCO2 VBG pO2 VBG HCO3 VBG O2 Saturation VBG Base Excess Sodium Potassium Chloride Carbon Dioxide Anion Gap BUN Creatinine Estim Creat Clear Calc Estimated GFR POC Glucose 88 93 Random Glucose Lactic Acid Uric Acid Calcium Phosphorus Magnesium Total Bilirubin Direct Bilirubin AST ALT Alkaline Phosphatase Ammonia Total Creatine Kinase Troponin I High Sens B-Natriuretic Peptide Total Protein Albumin Lipase Urine Color Urine Appearance Urine pH Ur Specific [place] Urine Protein Urine Glucose (UA) Urine Ketones Urine Blood Urine Nitrite Ur Leukocyte Esterase Urine RBC Urine WBC Ur Squamous Epith Cells Amorphous Sediment Urine Bacteria Hyaline Casts Granular Casts Urine Mucus Urine Yeast Urine Osmolality Ur Random Sodium Urine Creatinine Peritoneal WBC 0.077 Peritoneal RBC < 0.002 Periton Neutrophils 14 Periton Lymphocytes 38 Peritoneal Monocytes 45 Peritoneal Eosinophils 0 Peritoneal Basophils 0 Peritoneal Other Cells 3 Stool Occult Blood Urine Opiates Screen Ur Barbiturates Screen Ur Phencyclidine Scrn Ur Amphetamines Screen U Benzodiazepines Scrn Urine Cocaine Screen U Marijuana (THC) Screen Ethyl Alcohol LES Screen LES Titer LES Titer 2 LES Titer 3 LES Pattern LES Pattern 2 LES Pattern 3 Proteinase 3 (PR3) Ab Myeloperoxidase Ab Complement C3 Complement C4 C. difficile Toxin A&B C. difficile Antigen C. difficile Interpret COVID-19 ([facility]) COVID-19 Clin Com Hep Bs Antigen Hep Bs Antibody Hep B Core Total Ab Hepatitis C Ab (EIA) Ur L.pneumophila Ag Ur Strep pneumoniae Ag Blood Type Antibody Screen Crossmatch 07/04/20 07/05/20 07/05/20 21:55 06:12 06:12 WBC 9.2 RBC 2.61 L Hgb 7.6 L Hct 24.6 L MCV 94.3 MCH 29.1 MCHC 30.9 L RDW 18.0 H Plt Count 244 MPV 11.3 Immature Gran % (Auto) 0.4 Neut % (Auto) 79.3 H Lymph % (Auto) 9.9 L [place] % (Auto) 8.5 Eos % (Auto) 1.6 Baso % (Auto) 0.3 Lymph # (Auto) 0.9 L [place] # (Auto) 0.8 Eos # (Auto) 0.2 Baso # (Auto) 0.0 Abs Immat Gran (auto) 0.04 H Absolute Neuts (auto) 7.3 Absolute Nucleated RBC 0.000 Nucleated RBC % (auto) 0.0 G6PD PT INR APTT VBG pH VBG pCO2 VBG pO2 VBG HCO3 VBG O2 Saturation VBG Base Excess Sodium 136 Potassium 3.5 Chloride 104 Carbon Dioxide 18 L Anion Gap 18 BUN 19 H Creatinine 3.30 H Estim Creat Clear Calc 19.2 Estimated GFR 19 POC Glucose 70 Random Glucose 63 Lactic Acid Uric Acid 5.2 Calcium 8.5 Phosphorus Magnesium Total Bilirubin Direct Bilirubin AST ALT Alkaline Phosphatase Ammonia Total Creatine Kinase Troponin I High Sens B-Natriuretic Peptide Total Protein Albumin Lipase Urine Color Urine Appearance Urine pH Ur Specific [place] Urine Protein Urine Glucose (UA) Urine Ketones Urine Blood Urine Nitrite Ur Leukocyte Esterase Urine RBC Urine WBC Ur Squamous Epith Cells Amorphous Sediment Urine Bacteria Hyaline Casts Granular Casts Urine Mucus Urine Yeast Urine Osmolality Ur Random Sodium Urine Creatinine Peritoneal WBC Peritoneal RBC Periton Neutrophils Periton Lymphocytes Peritoneal Monocytes Peritoneal Eosinophils Peritoneal Basophils Peritoneal Other Cells Stool Occult Blood Urine Opiates Screen Ur Barbiturates Screen Ur Phencyclidine Scrn Ur Amphetamines Screen U Benzodiazepines Scrn Urine Cocaine Screen U Marijuana (THC) Screen Ethyl Alcohol LES Screen LES Titer LES Titer 2 LES Titer 3 LES Pattern LES Pattern 2 LES Pattern 3 Proteinase 3 (PR3) Ab Myeloperoxidase Ab Complement C3 Complement C4 C. difficile Toxin A&B C. difficile Antigen C. difficile Interpret COVID-19 ([facility]) COVID-19 Clin Com Hep Bs Antigen Hep Bs Antibody Hep B Core Total Ab Hepatitis C Ab (EIA) Ur L.pneumophila Ag Ur Strep pneumoniae Ag Blood Type Antibody Screen Crossmatch 07/05/20 07/05/20 07/05/20 07:56 11:16 16:20 WBC RBC Hgb Hct MCV MCH MCHC RDW Plt Count MPV Immature Gran % (Auto) Neut % (Auto) Lymph % (Auto) [place] % (Auto) Eos % (Auto) Baso % (Auto) Lymph # (Auto) [place] # (Auto) Eos # (Auto) Baso # (Auto) Abs Immat Gran (auto) Absolute Neuts (auto) Absolute Nucleated RBC Nucleated RBC % (auto) G6PD PT INR APTT VBG pH VBG pCO2 VBG pO2 VBG HCO3 VBG O2 Saturation VBG Base Excess Sodium Potassium Chloride Carbon Dioxide Anion Gap BUN Creatinine Estim Creat Clear Calc Estimated GFR POC Glucose 62 71 65 Random Glucose Lactic Acid Uric Acid Calcium Phosphorus Magnesium Total Bilirubin Direct Bilirubin AST ALT Alkaline Phosphatase Ammonia Total Creatine Kinase Troponin I High Sens B-Natriuretic Peptide Total Protein Albumin Lipase Urine Color Urine Appearance Urine pH Ur Specific [place] Urine Protein Urine Glucose (UA) Urine Ketones Urine Blood Urine Nitrite Ur Leukocyte Esterase Urine RBC Urine WBC Ur Squamous Epith Cells Amorphous Sediment Urine Bacteria Hyaline Casts Granular Casts Urine Mucus Urine Yeast Urine Osmolality Ur Random Sodium Urine Creatinine Peritoneal WBC Peritoneal RBC Periton Neutrophils Periton Lymphocytes Peritoneal Monocytes Peritoneal Eosinophils Peritoneal Basophils Peritoneal Other Cells Stool Occult Blood Urine Opiates Screen Ur Barbiturates Screen Ur Phencyclidine Scrn Ur Amphetamines Screen U Benzodiazepines Scrn Urine Cocaine Screen U Marijuana (THC) Screen Ethyl Alcohol LES Screen LES Titer LES Titer 2 LES Titer 3 LES Pattern LES Pattern 2 LES Pattern 3 Proteinase 3 (PR3) Ab Myeloperoxidase Ab Complement C3 Complement C4 C. difficile Toxin A&B C. difficile Antigen C. difficile Interpret COVID-19 ([facility]) COVID-19 Clin Com Hep Bs Antigen Hep Bs Antibody Hep B Core Total Ab Hepatitis C Ab (EIA) Ur L.pneumophila Ag Ur Strep pneumoniae Ag Blood Type Antibody Screen Crossmatch 07/05/20 07/06/20 07/06/20 19:46 04:52 04:52 WBC RBC Hgb Hct MCV MCH MCHC RDW Plt Count MPV Immature Gran % (Auto) Neut % (Auto) Lymph % (Auto) [place] % (Auto) Eos % (Auto) Baso % (Auto) Lymph # (Auto) [place] # (Auto) Eos # (Auto) Baso # (Auto) Abs Immat Gran (auto) Absolute Neuts (auto) Absolute Nucleated RBC Nucleated RBC % (auto) G6PD PT INR APTT VBG pH VBG pCO2 VBG pO2 VBG HCO3 VBG O2 Saturation VBG Base Excess Sodium 137 Potassium 4.1 Chloride 106 Carbon Dioxide 15 L Anion Gap 20 BUN 26 H Creatinine 4.63 H* Estim Creat Clear Calc 13.7 Estimated GFR 13 POC Glucose 66 Random Glucose 58 L* Lactic Acid Uric Acid 6.3 Calcium 8.7 Phosphorus Magnesium Total Bilirubin Direct Bilirubin AST ALT Alkaline Phosphatase Ammonia Total Creatine Kinase Troponin I High Sens B-Natriuretic Peptide Total Protein Albumin Lipase Urine Color Urine Appearance Urine pH Ur Specific [place] Urine Protein Urine Glucose (UA) Urine Ketones Urine Blood Urine Nitrite Ur Leukocyte Esterase Urine RBC Urine WBC Ur Squamous Epith Cells Amorphous Sediment Urine Bacteria Hyaline Casts Granular Casts Urine Mucus Urine Yeast Urine Osmolality Ur Random Sodium Urine Creatinine Peritoneal WBC Peritoneal RBC Periton Neutrophils Periton Lymphocytes Peritoneal Monocytes Peritoneal Eosinophils Peritoneal Basophils Peritoneal Other Cells Stool Occult Blood Urine Opiates Screen Ur Barbiturates Screen Ur Phencyclidine Scrn Ur Amphetamines Screen U Benzodiazepines Scrn Urine Cocaine Screen U Marijuana (THC) Screen Ethyl Alcohol LES Screen LES Titer LES Titer 2 LES Titer 3 LES Pattern LES Pattern 2 LES Pattern 3 Proteinase 3 (PR3) Ab Myeloperoxidase Ab Complement C3 Complement C4 C. difficile Toxin A&B C. difficile Antigen C. difficile Interpret COVID-19 ([facility]) COVID-19 Clin Com Hep Bs Antigen Hep Bs Antibody Hep B Core Total Ab Hepatitis C Ab (EIA) Ur L.pneumophila Ag Ur Strep pneumoniae Ag Blood Type Antibody Screen Crossmatch 07/06/20 07/06/20 07/06/20 04:52 04:52 06:12 WBC 10.0 RBC 2.69 L Hgb 7.9 L Hct 26.0 L MCV 96.7 MCH 29.4 MCHC 30.4 L RDW 18.5 H Plt Count 232 MPV 10.7 Immature Gran % (Auto) 0.4 Neut % (Auto) 78.3 H Lymph % (Auto) 10.9 L [place] % (Auto) 8.4 Eos % (Auto) 1.7 Baso % (Auto) 0.3 Lymph # (Auto) 1.1 L [place] # (Auto) 0.8 Eos # (Auto) 0.2 Baso # (Auto) 0.0 Abs Immat Gran (auto) 0.04 H Absolute Neuts (auto) 7.8 Absolute Nucleated RBC 0.000 Nucleated RBC % (auto) 0.0 G6PD PT INR APTT VBG pH VBG pCO2 VBG pO2 VBG HCO3 VBG O2 Saturation VBG Base Excess Sodium Potassium Chloride Carbon Dioxide Anion Gap BUN Creatinine Estim Creat Clear Calc Estimated GFR POC Glucose 134 H Random Glucose Lactic Acid 1.2 Uric Acid Calcium Phosphorus Magnesium Total Bilirubin Direct Bilirubin AST ALT Alkaline Phosphatase Ammonia Total Creatine Kinase Troponin I High Sens B-Natriuretic Peptide Total Protein Albumin Lipase Urine Color Urine Appearance Urine pH Ur Specific [place] Urine Protein Urine Glucose (UA) Urine Ketones Urine Blood Urine Nitrite Ur Leukocyte Esterase Urine RBC Urine WBC Ur Squamous Epith Cells Amorphous Sediment Urine Bacteria Hyaline Casts Granular Casts Urine Mucus Urine Yeast Urine Osmolality Ur Random Sodium Urine Creatinine Peritoneal WBC Peritoneal RBC Periton Neutrophils Periton Lymphocytes Peritoneal Monocytes Peritoneal Eosinophils Peritoneal Basophils Peritoneal Other Cells Stool Occult Blood Urine Opiates Screen Ur Barbiturates Screen Ur Phencyclidine Scrn Ur Amphetamines Screen U Benzodiazepines Scrn Urine Cocaine Screen U Marijuana (THC) Screen Ethyl Alcohol LES Screen LES Titer LES Titer 2 LES Titer 3 LES Pattern LES Pattern 2 LES Pattern 3 Proteinase 3 (PR3) Ab Myeloperoxidase Ab Complement C3 Complement C4 C. difficile Toxin A&B C. difficile Antigen C. difficile Interpret COVID-19 ([facility]) COVID-19 Clin Com Hep Bs Antigen Hep Bs Antibody Hep B Core Total Ab Hepatitis C Ab (EIA) Ur L.pneumophila Ag Ur Strep pneumoniae Ag Blood Type Antibody Screen Crossmatch 07/06/20 07/06/20 07/06/20 07:13 11:23 16:20 WBC RBC Hgb Hct MCV MCH MCHC RDW Plt Count MPV Immature Gran % (Auto) Neut % (Auto) Lymph % (Auto) [place] % (Auto) Eos % (Auto) Baso % (Auto) Lymph # (Auto) [place] # (Auto) Eos # (Auto) Baso # (Auto) Abs Immat Gran (auto) Absolute Neuts (auto) Absolute Nucleated RBC Nucleated RBC % (auto) G6PD PT INR APTT VBG pH VBG pCO2 VBG pO2 VBG HCO3 VBG O2 Saturation VBG Base Excess Sodium Potassium Chloride Carbon Dioxide Anion Gap BUN Creatinine Estim Creat Clear Calc Estimated GFR POC Glucose 124 H 109 117 H Random Glucose Lactic Acid Uric Acid Calcium Phosphorus Magnesium Total Bilirubin Direct Bilirubin AST ALT Alkaline Phosphatase Ammonia Total Creatine Kinase Troponin I High Sens B-Natriuretic Peptide Total Protein Albumin Lipase Urine Color Urine Appearance Urine pH Ur Specific [place] Urine Protein Urine Glucose (UA) Urine Ketones Urine Blood Urine Nitrite Ur Leukocyte Esterase Urine RBC Urine WBC Ur Squamous Epith Cells Amorphous Sediment Urine Bacteria Hyaline Casts Granular Casts Urine Mucus Urine Yeast Urine Osmolality Ur Random Sodium Urine Creatinine Peritoneal WBC Peritoneal RBC Periton Neutrophils Periton Lymphocytes Peritoneal Monocytes Peritoneal Eosinophils Peritoneal Basophils Peritoneal Other Cells Stool Occult Blood Urine Opiates Screen Ur Barbiturates Screen Ur Phencyclidine Scrn Ur Amphetamines Screen U Benzodiazepines Scrn Urine Cocaine Screen U Marijuana (THC) Screen Ethyl Alcohol LES Screen LES Titer LES Titer 2 LES Titer 3 LES Pattern LES Pattern 2 LES Pattern 3 Proteinase 3 (PR3) Ab Myeloperoxidase Ab Complement C3 Complement C4 C. difficile Toxin A&B C. difficile Antigen C. difficile Interpret COVID-19 ([facility]) COVID-19 Clin Com Hep Bs Antigen Hep Bs Antibody Hep B Core Total Ab Hepatitis C Ab (EIA) Ur L.pneumophila Ag Ur Strep pneumoniae Ag Blood Type Antibody Screen Crossmatch 07/06/20 07/07/20 07/07/20 20:01 05:24 07:16 WBC RBC Hgb Hct MCV MCH MCHC RDW Plt Count MPV Immature Gran % (Auto) Neut % (Auto) Lymph % (Auto) [place] % (Auto) Eos % (Auto) Baso % (Auto) Lymph # (Auto) [place] # (Auto) Eos # (Auto) Baso # (Auto) Abs Immat Gran (auto) Absolute Neuts (auto) Absolute Nucleated RBC Nucleated RBC % (auto) G6PD PT INR APTT VBG pH VBG pCO2 VBG pO2 VBG HCO3 VBG O2 Saturation VBG Base Excess Sodium 138 Potassium 3.7 Chloride 106 Carbon Dioxide 18 L Anion Gap 18 BUN 30 H Creatinine 5.73 H* Estim Creat Clear Calc 11.0 Estimated GFR 10 POC Glucose 145 H 185 H Random Glucose 182 H D Lactic Acid Uric Acid Calcium 8.4 Phosphorus Magnesium Total Bilirubin 1.3 H Direct Bilirubin 0.9 H AST 107 H ALT 31 Alkaline Phosphatase 610 H Ammonia Total Creatine Kinase Troponin I High Sens B-Natriuretic Peptide Total Protein 6.0 L Albumin 3.3 L Lipase Urine Color Urine Appearance Urine pH Ur Specific [place] Urine Protein Urine Glucose (UA) Urine Ketones Urine Blood Urine Nitrite Ur Leukocyte Esterase Urine RBC Urine WBC Ur Squamous Epith Cells Amorphous Sediment Urine Bacteria Hyaline Casts Granular Casts Urine Mucus Urine Yeast Urine Osmolality Ur Random Sodium Urine Creatinine Peritoneal WBC Peritoneal RBC Periton Neutrophils Periton Lymphocytes Peritoneal Monocytes Peritoneal Eosinophils Peritoneal Basophils Peritoneal Other Cells Stool Occult Blood Urine Opiates Screen Ur Barbiturates Screen Ur Phencyclidine Scrn Ur Amphetamines Screen U Benzodiazepines Scrn Urine Cocaine Screen U Marijuana (THC) Screen Ethyl Alcohol LES Screen LES Titer LES Titer 2 LES Titer 3 LES Pattern LES Pattern 2 LES Pattern 3 Proteinase 3 (PR3) Ab Myeloperoxidase Ab Complement C3 Complement C4 C. difficile Toxin A&B C. difficile Antigen C. difficile Interpret COVID-19 ([facility]) COVID-19 Clin Com Hep Bs Antigen Hep Bs Antibody Hep B Core Total Ab Hepatitis C Ab (EIA) Ur L.pneumophila Ag Ur Strep pneumoniae Ag Blood Type Antibody Screen Crossmatch 07/07/20 07/07/20 07/07/20 13:24 13:38 16:27 WBC RBC Hgb Hct MCV MCH MCHC RDW Plt Count MPV Immature Gran % (Auto) Neut % (Auto) Lymph % (Auto) [place] % (Auto) Eos % (Auto) Baso % (Auto) Lymph # (Auto) [place] # (Auto) Eos # (Auto) Baso # (Auto) Abs Immat Gran (auto) Absolute Neuts (auto) Absolute Nucleated RBC Nucleated RBC % (auto) G6PD PT INR APTT VBG pH VBG pCO2 VBG pO2 VBG HCO3 VBG O2 Saturation VBG Base Excess Sodium Potassium Chloride Carbon Dioxide Anion Gap BUN Creatinine Estim Creat Clear Calc Estimated GFR POC Glucose 122 H 150 H Random Glucose Lactic Acid Uric Acid Calcium Phosphorus Magnesium Total Bilirubin Direct Bilirubin AST ALT Alkaline Phosphatase Ammonia Total Creatine Kinase Troponin I High Sens B-Natriuretic Peptide Total Protein Albumin Lipase Urine Color Urine Appearance Urine pH Ur Specific [place] Urine Protein Urine Glucose (UA) Urine Ketones Urine Blood Urine Nitrite Ur Leukocyte Esterase Urine RBC Urine WBC Ur Squamous Epith Cells Amorphous Sediment Urine Bacteria Hyaline Casts Granular Casts Urine Mucus Urine Yeast Urine Osmolality Ur Random Sodium Urine Creatinine Peritoneal WBC Peritoneal RBC Periton Neutrophils Periton Lymphocytes Peritoneal Monocytes Peritoneal Eosinophils Peritoneal Basophils Peritoneal Other Cells Stool Occult Blood Urine Opiates Screen Ur Barbiturates Screen Ur Phencyclidine Scrn Ur Amphetamines Screen U Benzodiazepines Scrn Urine Cocaine Screen U Marijuana (THC) Screen Ethyl Alcohol LES Screen LES Titer LES Titer 2 LES Titer 3 LES Pattern LES Pattern 2 LES Pattern 3 Proteinase 3 (PR3) Ab Myeloperoxidase Ab Complement C3 Complement C4 C. difficile Toxin A&B C. difficile Antigen C. difficile Interpret COVID-19 ([facility]) COVID-19 Clin Com Hep Bs Antigen Negative Hep Bs Antibody NONREACTIVE Hep B Core Total Ab Nonreactive Hepatitis C Ab (EIA) Reactive H Ur L.pneumophila Ag Ur Strep pneumoniae Ag Blood Type Antibody Screen Crossmatch 07/07/20 07/07/20 07/08/20 17:08 20:39 05:29 WBC RBC Hgb Hct MCV MCH MCHC RDW Plt Count MPV Immature Gran % (Auto) Neut % (Auto) Lymph % (Auto) [place] % (Auto) Eos % (Auto) Baso % (Auto) Lymph # (Auto) [place] # (Auto) Eos # (Auto) Baso # (Auto) Abs Immat Gran (auto) Absolute Neuts (auto) Absolute Nucleated RBC Nucleated RBC % (auto) G6PD PT 14.9 H INR 1.3 H APTT VBG pH VBG pCO2 VBG pO2 VBG HCO3 VBG O2 Saturation VBG Base Excess Sodium Potassium Chloride Carbon Dioxide Anion Gap BUN Creatinine Estim Creat Clear Calc Estimated GFR POC Glucose 155 H Random Glucose Lactic Acid Uric Acid Calcium Phosphorus Magnesium Total Bilirubin Direct Bilirubin AST ALT Alkaline Phosphatase Ammonia Total Creatine Kinase Troponin I High Sens B-Natriuretic Peptide Total Protein Albumin Lipase Urine Color Urine Appearance Urine pH Ur Specific [place] Urine Protein Urine Glucose (UA) Urine Ketones Urine Blood Urine Nitrite Ur Leukocyte Esterase Urine RBC Urine WBC Ur Squamous Epith Cells Amorphous Sediment Urine Bacteria Hyaline Casts Granular Casts Urine Mucus Urine Yeast Urine Osmolality Ur Random Sodium Urine Creatinine Peritoneal WBC Peritoneal RBC Periton Neutrophils Periton Lymphocytes Peritoneal Monocytes Peritoneal Eosinophils Peritoneal Basophils Peritoneal Other Cells Stool Occult Blood Urine Opiates Screen Ur Barbiturates Screen Ur Phencyclidine Scrn Ur Amphetamines Screen U Benzodiazepines Scrn Urine Cocaine Screen U Marijuana (THC) Screen Ethyl Alcohol LES Screen LES Titer LES Titer 2 LES Titer 3 LES Pattern LES Pattern 2 LES Pattern 3 Proteinase 3 (PR3) Ab Myeloperoxidase Ab Complement C3 Complement C4 C. difficile Toxin A&B C. difficile Antigen C. difficile Interpret COVID-19 ([facility]) COVID-19 Clin Com Hep Bs Antigen Hep Bs Antibody Hep B Core Total Ab Hepatitis C Ab (EIA) Ur L.pneumophila Ag Ur Strep pneumoniae Ag Blood Type O Positive Antibody Screen NEGATIVE Crossmatch See Detail 07/08/20 07/08/20 07/08/20 05:29 07:10 11:54 WBC RBC Hgb Hct MCV MCH MCHC RDW Plt Count MPV Immature Gran % (Auto) Neut % (Auto) Lymph % (Auto) [place] % (Auto) Eos % (Auto) Baso % (Auto) Lymph # (Auto) [place] # (Auto) Eos # (Auto) Baso # (Auto) Abs Immat Gran (auto) Absolute Neuts (auto) Absolute Nucleated RBC Nucleated RBC % (auto) G6PD PT INR APTT VBG pH VBG pCO2 VBG pO2 VBG HCO3 VBG O2 Saturation VBG Base Excess Sodium 135 Potassium 3.5 Chloride 106 Carbon Dioxide 17 L Anion Gap 16 BUN 15 Creatinine 3.77 H Estim Creat Clear Calc 16.8 Estimated GFR 16 POC Glucose 121 H 129 H Random Glucose 110 D Lactic Acid Uric Acid Calcium 8.0 L Phosphorus Magnesium Total Bilirubin Direct Bilirubin AST ALT Alkaline Phosphatase Ammonia Total Creatine Kinase Troponin I High Sens B-Natriuretic Peptide Total Protein Albumin Lipase Urine Color Urine Appearance Urine pH Ur Specific [place] Urine Protein Urine Glucose (UA) Urine Ketones Urine Blood Urine Nitrite Ur Leukocyte Esterase Urine RBC Urine WBC Ur Squamous Epith Cells Amorphous Sediment Urine Bacteria Hyaline Casts Granular Casts Urine Mucus Urine Yeast Urine Osmolality Ur Random Sodium Urine Creatinine Peritoneal WBC Peritoneal RBC Periton Neutrophils Periton Lymphocytes Peritoneal Monocytes Peritoneal Eosinophils Peritoneal Basophils Peritoneal Other Cells Stool Occult Blood Urine Opiates Screen Ur Barbiturates Screen Ur Phencyclidine Scrn Ur Amphetamines Screen U Benzodiazepines Scrn Urine Cocaine Screen U Marijuana (THC) Screen Ethyl Alcohol LES Screen LES Titer LES Titer 2 LES Titer 3 LES Pattern LES Pattern 2 LES Pattern 3 Proteinase 3 (PR3) Ab Myeloperoxidase Ab Complement C3 Complement C4 C. difficile Toxin A&B C. difficile Antigen C. difficile Interpret COVID-19 ([facility]) COVID-19 Clin Com Hep Bs Antigen Hep Bs Antibody Hep B Core Total Ab Hepatitis C Ab (EIA) Ur L.pneumophila Ag Ur Strep pneumoniae Ag Blood Type Antibody Screen Crossmatch 07/08/20 07/08/20 07/09/20 15:45 19:46 07:31 WBC RBC Hgb Hct MCV MCH MCHC RDW Plt Count MPV Immature Gran % (Auto) Neut % (Auto) Lymph % (Auto) [place] % (Auto) Eos % (Auto) Baso % (Auto) Lymph # (Auto) [place] # (Auto) Eos # (Auto) Baso # (Auto) Abs Immat Gran (auto) Absolute Neuts (auto) Absolute Nucleated RBC Nucleated RBC % (auto) G6PD PT INR APTT VBG pH VBG pCO2 VBG pO2 VBG HCO3 VBG O2 Saturation VBG Base Excess Sodium Potassium Chloride Carbon Dioxide Anion Gap BUN Creatinine Estim Creat Clear Calc Estimated GFR POC Glucose 123 H 150 H 88 Random Glucose Lactic Acid Uric Acid Calcium Phosphorus Magnesium Total Bilirubin Direct Bilirubin AST ALT Alkaline Phosphatase Ammonia Total Creatine Kinase Troponin I High Sens B-Natriuretic Peptide Total Protein Albumin Lipase Urine Color Urine Appearance Urine pH Ur Specific [place] Urine Protein Urine Glucose (UA) Urine Ketones Urine Blood Urine Nitrite Ur Leukocyte Esterase Urine RBC Urine WBC Ur Squamous Epith Cells Amorphous Sediment Urine Bacteria Hyaline Casts Granular Casts Urine Mucus Urine Yeast Urine Osmolality Ur Random Sodium Urine Creatinine Peritoneal WBC Peritoneal RBC Periton Neutrophils Periton Lymphocytes Peritoneal Monocytes Peritoneal Eosinophils Peritoneal Basophils Peritoneal Other Cells Stool Occult Blood Urine Opiates Screen Ur Barbiturates Screen Ur Phencyclidine Scrn Ur Amphetamines Screen U Benzodiazepines Scrn Urine Cocaine Screen U Marijuana (THC) Screen Ethyl Alcohol LES Screen LES Titer LES Titer 2 LES Titer 3 LES Pattern LES Pattern 2 LES Pattern 3 Proteinase 3 (PR3) Ab Myeloperoxidase Ab Complement C3 Complement C4 C. difficile Toxin A&B C. difficile Antigen C. difficile Interpret COVID-19 ([facility]) COVID-19 Clin Com Hep Bs Antigen Hep Bs Antibody Hep B Core Total Ab Hepatitis C Ab (EIA) Ur L.pneumophila Ag Ur Strep pneumoniae Ag Blood Type Antibody Screen Crossmatch 07/09/20 07/09/20 07/09/20 12:37 15:56 19:50 WBC RBC Hgb Hct MCV MCH MCHC RDW Plt Count MPV Immature Gran % (Auto) Neut % (Auto) Lymph % (Auto) [place] % (Auto) Eos % (Auto) Baso % (Auto) Lymph # (Auto) [place] # (Auto) Eos # (Auto) Baso # (Auto) Abs Immat Gran (auto) Absolute Neuts (auto) Absolute Nucleated RBC Nucleated RBC % (auto) G6PD PT INR APTT VBG pH VBG pCO2 VBG pO2 VBG HCO3 VBG O2 Saturation VBG Base Excess Sodium Potassium Chloride Carbon Dioxide Anion Gap BUN Creatinine Estim Creat Clear Calc Estimated GFR POC Glucose 77 94 78 Random Glucose Lactic Acid Uric Acid Calcium Phosphorus Magnesium Total Bilirubin Direct Bilirubin AST ALT Alkaline Phosphatase Ammonia Total Creatine Kinase Troponin I High Sens B-Natriuretic Peptide Total Protein Albumin Lipase Urine Color Urine Appearance Urine pH Ur Specific [place] Urine Protein Urine Glucose (UA) Urine Ketones Urine Blood Urine Nitrite Ur Leukocyte Esterase Urine RBC Urine WBC Ur Squamous Epith Cells Amorphous Sediment Urine Bacteria Hyaline Casts Granular Casts Urine Mucus Urine Yeast Urine Osmolality Ur Random Sodium Urine Creatinine Peritoneal WBC Peritoneal RBC Periton Neutrophils Periton Lymphocytes Peritoneal Monocytes Peritoneal Eosinophils Peritoneal Basophils Peritoneal Other Cells Stool Occult Blood Urine Opiates Screen Ur Barbiturates Screen Ur Phencyclidine Scrn Ur Amphetamines Screen U Benzodiazepines Scrn Urine Cocaine Screen U Marijuana (THC) Screen Ethyl Alcohol LES Screen LES Titer LES Titer 2 LES Titer 3 LES Pattern LES Pattern 2 LES Pattern 3 Proteinase 3 (PR3) Ab Myeloperoxidase Ab Complement C3 Complement C4 C. difficile Toxin A&B C. difficile Antigen C. difficile Interpret COVID-19 ([facility]) COVID-19 Clin Com Hep Bs Antigen Hep Bs Antibody Hep B Core Total Ab Hepatitis C Ab (EIA) Ur L.pneumophila Ag Ur Strep pneumoniae Ag Blood Type Antibody Screen Crossmatch 07/10/20 07/10/20 07/10/20 07:20 09:32 10:29 WBC RBC Hgb Hct MCV MCH MCHC RDW Plt Count MPV Immature Gran % (Auto) Neut % (Auto) Lymph % (Auto) [place] % (Auto) Eos % (Auto) Baso % (Auto) Lymph # (Auto) [place] # (Auto) Eos # (Auto) Baso # (Auto) Abs Immat Gran (auto) Absolute Neuts (auto) Absolute Nucleated RBC Nucleated RBC % (auto) G6PD PT INR APTT VBG pH VBG pCO2 VBG pO2 VBG HCO3 VBG O2 Saturation VBG Base Excess Sodium Potassium Chloride Carbon Dioxide Anion Gap BUN Creatinine Estim Creat Clear Calc Estimated GFR POC Glucose 65 56 L* 127 H Random Glucose Lactic Acid Uric Acid Calcium Phosphorus Magnesium Total Bilirubin Direct Bilirubin AST ALT Alkaline Phosphatase Ammonia Total Creatine Kinase Troponin I High Sens B-Natriuretic Peptide Total Protein Albumin Lipase Urine Color Urine Appearance Urine pH Ur Specific [place] Urine Protein Urine Glucose (UA) Urine Ketones Urine Blood Urine Nitrite Ur Leukocyte Esterase Urine RBC Urine WBC Ur Squamous Epith Cells Amorphous Sediment Urine Bacteria Hyaline Casts Granular Casts Urine Mucus Urine Yeast Urine Osmolality Ur Random Sodium Urine Creatinine Peritoneal WBC Peritoneal RBC Periton Neutrophils Periton Lymphocytes Peritoneal Monocytes Peritoneal Eosinophils Peritoneal Basophils Peritoneal Other Cells Stool Occult Blood Urine Opiates Screen Ur Barbiturates Screen Ur Phencyclidine Scrn Ur Amphetamines Screen U Benzodiazepines Scrn Urine Cocaine Screen U Marijuana (THC) Screen Ethyl Alcohol LES Screen LES Titer LES Titer 2 LES Titer 3 LES Pattern LES Pattern 2 LES Pattern 3 Proteinase 3 (PR3) Ab Myeloperoxidase Ab Complement C3 Complement C4 C. difficile Toxin A&B C. difficile Antigen C. difficile Interpret COVID-19 ([facility]) COVID-19 Clin Com Hep Bs Antigen Hep Bs Antibody Hep B Core Total Ab Hepatitis C Ab (EIA) Ur L.pneumophila Ag Ur Strep pneumoniae Ag Blood Type Antibody Screen Crossmatch Short CBC 07/01/20 07/07/20 Range/Units 00:15 17:08 Blood Type O Positive O Positive Antibody Screen NEGATIVE NEGATIVE Crossmatch See Detail See Detail BMP 07/10/20 10:53 Sodium 135 Potassium 4.2 Chloride 104 Carbon Dioxide 18 L BUN 16 Creatinine 4.19 H* Calcium 8.8 D Urine 07/01/20 07/02/20 Range/Units 11:45 10:00 Urine Color DARK YELLOW BROWN Urine Appearance CLOUDY TURBID Urine pH 5.0 6.5 (5.0-8.0) Ur Specific [place] >= 1.030 H >= 1.030 H (1.005-1.025) Urine Protein 2+ H 3+ H (NEG-TRACE) MG/DL Urine Glucose (UA) NEG NEG (NEG) MG/DL Airway Mallampati Class: II TM Dist: >3cm Neck ROM: Full Loose/Missing/Broken Teeth: Yes (Many missing. Top left loose) Heart: RRR Lungs: CTAB Assessment and Plan Assessment Anesthesia Assessment: Anesthesia Plan Discussed and Chart Reviewed Final Anesthetic Review NPO: Yes ASA Class: IV Final Preanesthetic Review: No Changes in Pt Med Stat, Meds/Allgs Chart Reviewed, Consent Obtained/Reviewed and Anes Risks/Benef Reviewed Patient Risk: High Procedure Risk: Low Assessment/Block/Sedation in SS: Assess/Block/Sedation-SS Anesthetic Plan Anesthetic Plan: MAC: Disposition: Inp. Admit - [facility]
[2020-07-10] MEDS: 0.9 % Sodium Chloride 1,000 ML 50 ML IVCONT (10:59)
[2020-07-10 11:39] LABS: Anion Gap 17 (12-20); Blood Urea Nitrogen 16 mg/dL (9-16); Calcium 8.8 mg/dL (8.4-10.2); Carbon Dioxide 18 mmol/L (22-29); Chloride 104 mmol/L (96-108); Creatinine Clr Calc Pharmacy 15.1; Estimated Glomerular Filt Rate 14; Glucose Fasting 117 mg/dL (60-99); Potassium 4.2 mmol/L (3.3-5.1); Sodium 135 mmol/L (135-145)
[2020-07-10] MEDS: levoFLOXacin 500 MG TABLET PO (12:09)
--- NOTE | 2020-07-10 12:26 | MHC.SHP ---
Pre-Procedural Eval Section A The patient is an INPATIENT: Yes Changes since office visit: No Cold of Flu in the past 2 weeks, No New Medical Problems, No Changes in Medication and No Patient answered all questions The History & Physical has been completed within 30 days and I have reviewed it.: Yes Section B Chief Complaint: RENAL BIOPSY Allergies: Allergies Allergy/AdvReac Type Severity Reaction Status Date / Time No Known Allergies Allergy Verified 05/26/20 10:49 Plan Diagnosis/Plan: Unchanged (bilateral retrogrades, bilateral stents) I have reviewed the history and physical and performed a pertinent physical examination on my patient. No changes have occurred unless specified.
--- NOTE | 2020-07-10 12:57 | HO.PM.IMPN ---
Subjective Subjective Date of Service: 07/10/20 Interval History: tired Cardiovascular Cardiovascular: Reports no additional cardiovascular complaints Genitourinary Genitourinary: Reports no additional male genitourinary complaints Physical Exam Vital Signs: Vital Signs: Last Vital Signs Temp 98.1 F 07/10/20 12:13 Pulse 70 07/10/20 12:13 Resp 16 07/10/20 12:13 BP 103/54 L 07/10/20 12:13 Pulse Ox 97 07/10/20 12:13 Body Mass Index 22.6 General: AO X 3, ill appearing Resp: CTA bilateral CVS: S1,S2,RRR GI: soft, non tender, distended Neuro: motor grossly intact Psych: appropriate affect Objective Data Current Medications Generic Name Dose Route Start Last Admin Trade Name Freq PRN Reason Stop Dose Admin Ascorbic Acid 500 mg 07/01/20 09:00 07/10/20 08:15 Ascorbic Acid 500 Mg Tablet PO Not Given DAILY [facility] Heparin Sodium (Porcine) 5,000 unit 07/04/20 16:45 07/09/20 17:23 Heparin Sodium,Porcine 5,000 Unit/Ml Vial INTRACATH 5,000 unit MOWEFR@1645 [facility] Administration Sodium Chloride 1,000 mls @ 50 mls/hr 07/10/20 10:45 07/10/20 10:59 Ns IVCONT 50 mls/hr .Q20H [facility] Administration Insulin Human Lispro 0 unit 07/01/20 07:30 07/10/20 08:14 Insulin Lispro 100 Unit/Ml 3 Ml Vial SUBCUT Not Given QIDACHS [facility] Protocol Midodrine 20 mg 07/02/20 15:00 07/10/20 08:35 Midodrine Hcl 10 Mg Tablet PO 20 mg TID [facility] Administration Nystatin 1 appl 07/01/20 21:00 07/10/20 08:36 Nystatin Cream 15 Gm Tube TOPICAL 1 appl BID [facility] Administration Protocol Omeprazole 20 mg 07/04/20 06:30 07/10/20 04:48 Omeprazole 20 Mg Capsule.Dr PO Not Given DAILY@0630 [facility] Ondansetron HCl 4 mg 07/01/20 02:11 07/06/20 09:08 Ondansetron Hcl 4 Mg/2 Ml Vial IVPUSH 4 mg Q8H PRN Administration Nausea and Vomiting Oxycodone HCl 2.5 mg 07/05/20 13:12 07/08/20 21:40 Oxycodone Hcl Immed Release 5 Mg Tablet PO 2.5 mg Q8H PRN Administration Pain, Severe (Pain Scale 7-10) Pharmacy Consult 1 each 06/30/20 18:08 Consult Rx Perform Med Rec MISCELLANE ONCE PRN Consult order Sodium Chloride 3 ml 07/01/20 02:11 07/10/20 08:46 0.9 % Sodium Chloride Flush 3 Ml Syringe IVFLUSH 3 ml QSHIFT [facility] Administration Sucralfate 1 gm 07/01/20 07:30 07/10/20 08:15 Sucralfate Oral Suspension 1 Gm/10 Ml Oral.Susp PO Not Given QIDACHS [facility] Vitamin D 50 mcg 07/01/20 09:00 07/10/20 08:15 Cholecalciferol (Vitamin D3) 25 Mcg Tablet PO Not Given DAILY [facility] Labs CBC & Chem 7: 07/06/20 04:52 07/10/20 10:53 Microbiology Microbiology Results: Microbiology 07/04/20 16:15 Paracentesis Fluid Gram Stain - Final 07/04/20 16:15 Paracentesis Fluid Routine Culture - Final No growth after 2 days 07/04/20 16:15 Paracentesis Fluid Anaerobic Culture - Final NO GROWTH AFTER 5 DAYS 07/06/20 04:52 Blood - Venous Blood Culture - Preliminary No growth after 48 hours. 07/06/20 04:52 Blood - Venous Blood Culture - Preliminary No growth after 48 hours. 06/30/20 19:12 Blood - Venous Blood Culture - Final No growth after 5 days. 06/30/20 19:08 Blood - Venous Blood Culture - Final No growth after 5 days. 07/01/20 06:57 Stool Stool Culture - Final 07/01/20 Unknown Urine Catheterized - Ch Catheter Urine Culture - Final No growth. 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 Langford to rule out component of obstruction today. Metabolic acidosis due to TREMAYNE is stable, BP remains low , continue midodrine, and hold nadolol and spironolactone. Cirrhosis / asictes (cause of cirrhosis unclear -- pt reports heavy drinking but stopped years ago, Hep C positive but viral load neg Patient is status post paracentesis 07/04, 2.5 L of clear yellowish fluid was drained, fluid cell count not suggestive of SBP , discontinued antibiotic, patient noted to have worsening abdominal distention, denies abdominal pain no shortness of breath will continue to follow LFTs stable, INR 1.3. DM insulin sliding scale acute on chronic anemia no active blood loss noted, Recent episode of Gi bleed h/h dropped but stable, no signs of active bleed , recent EGD showed esophageal varices as well as bleeding ulcer that was treated, continue omeprazole ,continue PPI and Carafate Procrit per Nephrology. Stage II ulcer and perianal rash would continue frequent position change nystatin powder and foam dressing to ulcer will start Glucerna Weakness and lethargy with low blood pressure stable. Severe malnutrition cont Ensure b.i.d. and Brent to promote wound healing Disposition to be transferred to rehab for continued hemodialysis Full Code DVT pptx, Mechanical device due to previous life threatening GI bleed
--- NOTE | 2020-07-10 13:13 | W.PM.OPN ---
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 No clear etiology for lack of urine production. On hemodialysis. Nephrology requesting stent placement. Procedure: After informed consent was verified the patient was brought to the operating room and placed in a supine position. Anesthesia was administered per protocol. The patient was placed in modified dorsal lithotomy position and prepped and draped in sterile fashion. Safety pause time-out was observed. Antibiotics being given. Twenty-two [place] cystoscope inserted per urethra. Bladder had evidence of prior catheterization with edema on the bladder wall. Left ureteric orifice was seen cannulated retrograde examination performed. No evidence of filling defect. Sensor guidewire was placed. Six [place] by 24 cm stent was placed without difficulty. Similar procedure repeated on right side Patient tolerated procedure well and was transferred in stable condition to recovery area. Pathology: Drains: 2 x 6 [place] by 24 cm double-J stent
--- NOTE | 2020-07-10 15:19 | P.PNNP_ITS ---
Subjective Subjective Date of Service: 07/10/20 Interval history: seen and examined. events noted Physical Exam Vital Signs: Vital Signs: Last Vital Signs Temp 97.8 F 07/10/20 15:12 Pulse 63 07/10/20 15:12 Resp 20 07/10/20 15:12 BP 110/58 L 07/10/20 15:12 Pulse Ox 96 07/10/20 15:12 Body Mass Index 22.6 Const: General: cooperative and no acute distress Orien tation/consciousness: patient oriented x3 Eyes: General: appearance normal, both eyes and all related structures Resp: Effort & Inspection: normal respiratory effort and able to speak in complete sentences Cardio: Rate: regular rate Rhythm: regular rhythm GI: Palpation (GI): Firmness to palpation present (GI) Auscultation: normal bowel sounds Skin: General skin exam: no rashes or lesions noted Neuro: General: patient oriented x3 Cognition (Neuro): normal cognition Extrem: General: Yes normal to inspection and Yes no pedal edema Objective Data Labs CBC & Chem 7: 07/06/20 04:52 07/10/20 10:53 Labs: Laboratory Results - last 24 hr 07/09/20 07/09/20 07/10/20 15:56 19:50 07:20 Sodium Potassium Chloride Carbon Dioxide Anion Gap BUN Creatinine Estim Creat Clear Calc Estimated GFR POC Glucose 94 78 65 Fasting Glucose Calcium 07/10/20 07/10/20 07/10/20 09:32 10:29 10:53 Sodium 135 Potassium 4.2 Chloride 104 Carbon Dioxide 18 L Anion Gap 17 BUN 16 Creatinine 4.19 H* Estim Creat Clear Calc 15.1 Estimated GFR 14 POC Glucose 56 L* 127 H Fasting Glucose 117 H Calcium 8.8 D Microbiology Microbiology Results: Microbiology 07/04/20 16:15 Paracentesis Fluid Gram Stain - Final 07/04/20 16:15 Paracentesis Fluid Routine Culture - Final No growth after 2 days 07/04/20 16:15 Paracentesis Fluid Anaerobic Culture - Final NO GROWTH AFTER 5 DAYS 07/06/20 04:52 Blood - Venous Blood Culture - Preliminary No growth after 48 hours. 07/06/20 04:52 Blood - Venous Blood Culture - Preliminary No growth after 48 hours. 06/30/20 19:12 Blood - Venous Blood Culture - Final No growth after 5 days. 06/30/20 19:08 Blood - Venous Blood Culture - Final No growth after 5 days. 07/01/20 06:57 Stool Stool Culture - Final 07/01/20 Unknown Urine Catheterized - Ch Catheter Urine Culture - Final No growth. Assessment & Plan Assessment and plan (1) Acute renal failure: Status: Acute (2) Acute dehydration: Status: Acute (3) GI bleed: Status: Acute (4) Diarrhea: Status: Acute (5) Metabolic acidosis: Status: Acute Assessment and Plan: This is a 70-year-old male past medical history as above incluidng cirrhosis which apears relatively compensated at this time who presents to the hospital after recent discharge complaining of diarrhea as well as poor oral intake found to have severe ANURIC TREMAYNE and metabolic acidosis now HD dependnet 1. Anuric Acute Kidney Injury: s/p HD started 07/03 ( has new Pcath as prior non- tunnelc ath fell out) w/u thus far suggests acute urate nephropathy but kidney bx was unrevealing as to cause of TREMAYNE so today going for cysto with retrograde and poss stents 2. AGMA/NAGMA: resolved 3. intravascular eff arterial vol depleted on exam with incr ascities 4. liver cirrhosis with asciteis 5. amemia REC: urol to proceed with cysto/retrogad and place stents if needed; track UOP/renal func;; avoid NToxins; arranging outpt HD spot at [place] unit will follow clsoely with team Time Spent With Patient Time: Total time spent is greater than 50% in coordination of care (as documented) at patient's floor/unit and/or counseling patient:
--- NOTE | 2020-07-10 15:36 | PC.NURSE ---
blood sugar of 65 at 0730 pt npo , Dr turner aware . repeatte at 0940 was 57 omp of d5 given , repeat up to 127. pt nimo to or at 1130
[2020-07-10] MEDS: ondansetron HCL 4 MG/2 ML VIAL IVPUSH (16:00)
[2020-07-10] MEDS: Sucralfate Oral Suspension 1 GM/10 ML ORAL.SUSP PO ×2 (16:00→21:27)
[2020-07-10 16:01] LABS: Glucose, Whole Blood 75 mg/dL (60-115)
[2020-07-10 19:44] LABS: Glucose, Whole Blood 87 mg/dL (60-115)
[2020-07-10] MEDS: Metoclopramide HCl 10 MG/2 ML VIAL 5 MG IVPUSH (21:54)
[2020-07-11] VITALS (9 sets, daily range): BP systolic 87–113; BP diastolic 52–59; PULSE 81–94; RESP 16–18; TEMP 36.2–36.9; O2SAT 95–97
[2020-07-11] MEDS: Omeprazole 20 MG CAPSULE.DR PO (05:54)
[2020-07-11 06:24] LABS: MANUAL DIFF FLAG NO
[2020-07-11 06:48] LABS: Basophils Percent Auto 0.3 % (0-2); Eosinophils Percent Auto 0.2 % (0-4); Hematocrit 29.9 % (42-52); Hemoglobin 9.4 g/dl (14.0-18.0); Imm Gran Abs Auto 0.07 X10*3/uL (0.00-0.03); Imm Gran Pct Auto 0.4 % (0.0-0.4); Lymphocytes Absolute Auto 1.1 X10*3/uL (1.2-4.9); Mean Corpuscular HGB Conc 31.4 g/dl (31.0-36.0); Mean Corpuscular Volume 92.3 fL (80-98); Monocytes Absolute Auto 0.8 X10*3/uL (0.1-1.2); Monocytes Percent Auto 5.3 % (2-11); Neutrophils Absolute Auto 13.7 X10*3/uL (2.0-8.3); Neutrophils Percent Auto 86.8 % (45-73); Platelet Count 154 X10*3/uL (160-400); Red Blood Count 3.24 X10*6/uL (4.60-5.80); Red Cell Distribution Width 19.2 % (11.0-16.0); White Blood Count 15.8 X10*3/uL (4.8-10.8)
[2020-07-11 07:34] LABS: Glucose, Whole Blood 88 mg/dL (60-115)
[2020-07-11 07:45] LABS: Anion Gap 20 (12-20); Blood Urea Nitrogen 22 mg/dL (9-16); Carbon Dioxide 16 mmol/L (22-29); Chloride 105 mmol/L (96-108); Creatinine Clr Calc Pharmacy 11.8; Estimated Glomerular Filt Rate 11; Glucose Fasting 86 mg/dL (60-99); Potassium 3.9 mmol/L (3.3-5.1); Sodium 137 mmol/L (135-145)
[2020-07-11] MEDS: Ascorbic Acid 500 MG TABLET PO (08:29)
[2020-07-11] MEDS: Midodrine HCl 10 MG TABLET 20 MG PO ×3 (08:29→21:02)
[2020-07-11] MEDS: Cholecalciferol (Vitamin D3) 25 MCG TABLET 50 MCG PO (08:29)
[2020-07-11] MEDS: Sodium Bicarbonate 650 MG TABLET PO ×3 (08:29→21:02)
[2020-07-11] MEDS: Sucralfate Oral Suspension 1 GM/10 ML ORAL.SUSP PO ×4 (08:29→21:02)
[2020-07-11] MEDS: 0.9 % Sodium Chloride Flush 3 ML SYRINGE IVFLUSH ×2 (08:38→16:43)
--- NOTE | 2020-07-11 09:39 | HO.POSTANES ---
Post Anesthesia Evaluation Post Anesthesia Evaluation Vital Signs: Vital Signs Temp Pulse Resp BP Pulse Ox 07/11/20 08:29 82 87/52 L 07/11/20 07:54 97.7 F 82 18 87/52 L 96 07/11/20 03:31 97.1 F 81 18 95/58 L 97 07/10/20 23:54 97.2 F 88 18 95/63 97 Anesthesia: Monitored Mental Status: Awake Pain Control: Satisfactory Nausea/Vomiting: None Hydration: Adequate Anesthesia-Related Issues: No Anes. Related Issues
--- NOTE | 2020-07-11 11:46 | P.PNIM_ITS ---
Subjective Subjective Date of Service: 07/11/20 Interval History: tired Respiratory Respiratory: Reports no additional respiratory complaints Gastrointestinal Gastrointestinal: Reports no additional gastrointestinal complaints Physical Exam Vital Signs: Vital Signs: Last Vital Signs Temp 97.7 F 07/11/20 07:54 Pulse 82 07/11/20 08:29 Resp 18 07/11/20 07:54 BP 87/52 L 07/11/20 08:29 Pulse Ox 96 07/11/20 07:54 Body Mass Index 22.6 General: AO X 3, no acute distress Resp: CTA bilateral CVS: S1,S2,RRR GI: soft, non tender, distended Neuro: motor grossly intact Psych: appropriate affect Objective Data Current Medications Generic Name Dose Route Start Last Admin Trade Name Freq PRN Reason Stop Dose Admin Ascorbic Acid 500 mg 07/01/20 09:00 07/11/20 08:29 Ascorbic Acid 500 Mg Tablet PO 500 mg DAILY [facility] Administration Heparin Sodium (Porcine) 5,000 unit 07/04/20 16:45 07/09/20 17:23 Heparin Sodium,Porcine 5,000 Unit/Ml Vial INTRACATH 5,000 unit [id number] [facility] Administration Insulin Human Lispro 0 unit 07/01/20 07:30 07/11/20 08:40 Insulin Lispro 100 Unit/Ml 3 Ml Vial SUBCUT Not Given QIDACHS [facility] Protocol Midodrine 20 mg 07/02/20 15:00 07/11/20 08:29 Midodrine Hcl 10 Mg Tablet PO 20 mg TID ROJAS Administration Nystatin 1 appl 07/01/20 21:00 07/10/20 21:35 Nystatin Cream 15 Gm Tube TOPICAL 1 appl BID [facility] Administration Protocol Omeprazole 20 mg 07/04/20 06:30 07/11/20 05:54 Omeprazole 20 Mg Capsule. PO 20 mg DAILY@0630 [facility] Administration Ondansetron HCl 4 mg 07/01/20 02:11 07/10/20 16:00 Ondansetron Hcl 4 Mg/2 Ml Vial IVPUSH 4 mg Q8H PRN Administration Nausea and Vomiting Pharmacy Consult 1 each 06/30/20 18:08 Consult Rx Perform Med Rec MISCELLANE ONCE PRN Consult order Sodium Bicarbonate 650 mg 07/11/20 09:00 07/11/20 08:29 Sodium Bicarbonate 650 Mg Tablet PO 650 mg TID ROJAS Administration Sodium Chloride 3 ml 07/01/20 02:11 07/11/20 08:38 0.9 % Sodium Chloride Flush 3 Ml Syringe IVFLUSH 3 ml QSHIFT [facility]JAS Administration Sucralfate 1 gm 07/01/20 07:30 07/11/20 08:29 Sucralfate Oral Suspension 1 Gm/10 Ml Oral.Susp PO 1 gm QIDACHS [facility] Administration Vitamin D 50 mcg 07/01/20 09:00 07/11/20 08:29 Cholecalciferol (Vitamin D3) 25 Mcg Tablet PO 50 mcg DAILY ROJAS Administration Labs CBC & Chem 7: 07/11/20 05:58 07/11/20 05:58 Microbiology Microbiology Results: Microbiology 07/06/20 04:52 Blood - Venous Blood Culture - Final No growth after 5 days. 07/06/20 04:52 Blood - Venous Blood Culture - Final No growth after 5 days. 07/04/20 16:15 Paracentesis Fluid Gram Stain - Final 07/04/20 16:15 Paracentesis Fluid Routine Culture - Final No growth after 2 days 07/04/20 16:15 Paracentesis Fluid Anaerobic Culture - Final NO GROWTH AFTER 5 DAYS 06/30/20 19:12 Blood - Venous Blood Culture - Final No growth after 5 days. 06/30/20 19:08 Blood - Venous Blood Culture - Final No growth after 5 days. 07/01/20 06:57 Stool Stool Culture - Final 07/01/20 Unknown Urine Catheterized - Ch Catheter Urine Culture - Final No growth. 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: Status: Acute (9) Hyperlipidemia LDL goal <100: Status: Acute (10) Essential hypertension: Status: Acute (11) Diarrhea: Status: Acute Assessment and Plan: 70M presented with FTT and TREMAYNE Acute Kidney Injury likely related to urate nephropathy vs hepatorenal, patient started on hemodialysis 07/03,uric acid level improved, patient is now hemodialysis dependent remains anuric initially patient was treated for hepatorenal syndrome with IV fluids albumin and Sandostatin Patient underwent renal biopsy 07/08, biopsy report is unrevealing Metabolic acidosis due to TREMAYNE is stable, BP remains low , continue midodrine, and hold nadolol and spironolactone. unerwent biletarl ureteral stent placement 07/10/20 but no urine output improvement making HRS more likely can probably take out stents will need group home hd Cirrhosis / asictes (cause of cirrhosis unclear -- pt reports heavy drinking but stopped years ago, Hep C positive but viral load neg Patient is status post paracentesis 07/04, 2.5 L of clear yellowish fluid was drained, fluid cell count not suggestive of SBP , discontinued antibiotic, patient noted to have worsening abdominal distention, denies abdominal pain no shortness of breath will continue to follow LFTs stable, INR 1.3. DM insulin sliding scale acute on chronic anemia no active blood loss noted, Recent episode of Gi bleed h/h dropped but stable, no signs of active bleed , recent EGD showed esophageal varices as well as bleeding ulcer that was treated, continue omeprazole ,continue PPI and Carafate Procrit per Nephrology. Stage II ulcer and perianal rash would continue frequent position change nystatin powder and foam dressing to ulcer will start Glucerna Weakness and lethargy with low blood pressure stable. Severe malnutrition cont Ensure b.i.d. and Brent to promote wound healing \
[2020-07-11] MEDS: Nystatin Cream 15 GM TUBE 1 APPL TOPICAL ×2 (13:49→21:02)
[2020-07-11 16:10] LABS: Glucose, Whole Blood 117 mg/dL (60-115)
[2020-07-11] MEDS: Heparin Sodium,Porcine 5,000 UNIT/ML VIAL 5000 UNIT INTRACATH (16:43)
--- NOTE | 2020-07-11 20:01 | P.PNNP_ITS ---
Subjective Subjective Date of Service: 07/11/20 Interval history: seen and exmained. events noted currently on HD Physical Exam Vital Signs: Vital Signs: Last Vital Signs Temp 98.2 F 07/11/20 19:16 Pulse 94 07/11/20 19:16 Resp 18 07/11/20 19:16 BP 90/53 L 07/11/20 15:39 Pulse Ox 95 07/11/20 19:16 Body Mass Index 22.6 Const: General: cooperative and no acute distress Orientation/consciousness: patient oriented x3 Eyes: General: appearance normal, both eyes and all related structures Resp: Effort & Inspection: normal respiratory effort and able to speak in complete sentences Cardio: Rate: regular rate Rhythm: regular rhythm GI: Palpation (GI): Firmness to palpation present (GI) Auscultation: normal bowel sounds Skin: General skin exam: no rashes or lesions noted Neuro: General: patient oriented x3 Cognition (Neuro): normal cognition Extrem: General: Yes normal to inspection and Yes no pedal edema Objective Data Labs CBC & Chem 7: 07/11/20 05:58 07/11/20 05:58 Labs: Laboratory Results - last 24 hr 07/11/20 07/11/20 07/11/20 05:58 05:58 07:29 WBC 15.8 H RBC 3.24 L D Hgb 9.4 L Hct 29.9 L MCV 92.3 MCH 29.0 MCHC 31.4 RDW 19.2 H Plt Count 154 L D MPV 10.0 Immature Gran % (Auto) 0.4 Neut % (Auto) 86.8 H Lymph % (Auto) 7.0 L [place] % (Auto) 5.3 Eos % (Auto) 0.2 Baso % (Auto) 0.3 Lymph # (Auto) 1.1 L [place] # (Auto) 0.8 Eos # (Auto) 0.0 Baso # (Auto) 0.0 Abs Immat Gran (auto) 0.07 H Absolute Neuts (auto) 13.7 H Absolute Nucleated RBC 0.000 Nucleated RBC % (auto) 0.0 Sodium 137 Potassium 3.9 Chloride 105 Carbon Dioxide 16 L Anion Gap 20 BUN 22 H Creatinine 5.36 H* Estim Creat Clear Calc 11.8 Estimated GFR 11 POC Glucose 88 Fasting Glucose 86 Calcium 9.0 07/11/20 16:03 WBC RBC Hgb Hct MCV MCH MCHC RDW Plt Count MPV Immature Gran % (Auto) Neut % (Auto) Lymph % (Auto) [place] % (Auto) Eos % (Auto) Baso % (Auto) Lymph # (Auto) [place] # (Auto) Eos # (Auto) Baso # (Auto) Abs Immat Gran (auto) Absolute Neuts (auto) Absolute Nucleated RBC Nucleated RBC % (auto) Sodium Potassium Chloride Carbon Dioxide Anion Gap BUN Creatinine Estim Creat Clear Calc Estimated GFR POC Glucose 117 H Fasting Glucose Calcium Microbiology Microbiology Results: Microbiology 07/06/20 04:52 Blood - Venous Blood Culture - Final No growth after 5 days. 07/06/20 04:52 Blood - Venous Blood Culture - Final No growth after 5 days. 07/04/20 16:15 Paracentesis Fluid Gram Stain - Final 07/04/20 16:15 Paracentesis Fluid Routine Culture - Final No growth after 2 days 07/04/20 16:15 Paracentesis Fluid Anaerobic Culture - Final NO GROWTH AFTER 5 DAYS 06/30/20 19:12 Blood - Venous Blood Culture - Final No growth after 5 days. 06/30/20 19:08 Blood - Venous Blood Culture - Final No growth after 5 days. 07/01/20 06:57 Stool Stool Culture - Final 07/01/20 Unknown Urine Catheterized - Ch Catheter Urine Culture - Final No growth. Assessment & Plan Assessment and plan (1) Acute renal failure: Status: Acute (2) Acute dehydration: Status: Acute (3) GI bleed: Status: Acute (4) Diarrhea: Status: Acute (5) Metabolic acidosis: Status: Acute Assessment and Plan: This is a 70-year-old male past medical history as above incluidng cirrhosis which apears relatively compensated at this time who presents to the hospital after recent discharge complaining of diarrhea as well as poor oral intake found to have severe ANURIC TREMAYNE and metabolic acidosis now HD dependnet 1. 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 AGMA/NAGMA: resolved 3. intravascular eff arterial vol depleted on exam with incr ascities 4. liver cirrhosis with asciteis 5. amemia REC: cont HD support and tap ascites as needed; d/c ureeteral stents on Tuesday; track UOP/renal func;; avoid NToxins; arranging outpt HD spot at [place] unit will follow clsoely with team Time Spent With Patient Time: Total time spent is greater than 50% in coordination of care (as documented) at patient's floor/unit and/or counseling patient:
[2020-07-11 20:05] LABS: Glucose, Whole Blood 121 mg/dL (60-115)
[2020-07-11] MEDS: ondansetron HCL 4 MG/2 ML VIAL IVPUSH (21:19)
[2020-07-12] VITALS (9 sets, daily range): BP systolic 96–117; BP diastolic 53–58; PULSE 75–87; RESP 16–20; TEMP 36.4–37.1; O2SAT 94–98
[2020-07-12] MEDS: 0.9 % Sodium Chloride Flush 3 ML SYRINGE IVFLUSH ×4 (00:27→20:29)
[2020-07-12] MEDS: Omeprazole 20 MG CAPSULE.DR PO (05:43)
[2020-07-12 06:43] LABS: MANUAL DIFF FLAG NO
[2020-07-12 06:56] LABS: Basophils Absolute Auto 0.1 X10*3/uL (0.0-0.2); Basophils Percent Auto 0.3 % (0-2); Eosinophils Absolute Auto 0.1 X10*3/uL (0.0-0.4); Eosinophils Percent Auto 0.4 % (0-4); Hematocrit 27.1 % (42-52); Hemoglobin 8.8 g/dl (14.0-18.0); Imm Gran Abs Auto 0.06 X10*3/uL (0.00-0.03); Imm Gran Pct Auto 0.4 % (0.0-0.4); Lymphocytes Absolute Auto 1.2 X10*3/uL (1.2-4.9); Lymphocytes Percent Auto 8.2 % (20-40); Mean Corpuscular HGB Conc 32.5 g/dl (31.0-36.0); Mean Corpuscular Hemoglobin 29.4 pg (27.0-33.0); Mean Corpuscular Volume 90.6 fL (80-98); Mean Platelet Volume 10.6 fL (9.4-12.4); Monocytes Absolute Auto 0.7 X10*3/uL (0.1-1.2); Neutrophils Absolute Auto 12.3 X10*3/uL (2.0-8.3); Neutrophils Percent Auto 85.7 % (45-73); Platelet Count 166 X10*3/uL (160-400); Red Blood Count 2.99 X10*6/uL (4.60-5.80); Red Cell Distribution Width 19.5 % (11.0-16.0); White Blood Count 14.3 X10*3/uL (4.8-10.8)
[2020-07-12 07:48] LABS: Anion Gap 23 (12-20); Blood Urea Nitrogen 18 mg/dL (9-16); Calcium 8.1 mg/dL (8.4-10.2); Carbon Dioxide 14 mmol/L (22-29); Chloride 103 mmol/L (96-108); Creatinine Clr Calc Pharmacy 14.9; Estimated Glomerular Filt Rate 14; Glucose Fasting 105 mg/dL (60-99); Potassium 3.7 mmol/L (3.3-5.1); Sodium 136 mmol/L (135-145)
[2020-07-12 08:30] LABS: Glucose, Whole Blood 116 mg/dL (60-115)
[2020-07-12] MEDS: Sodium Bicarbonate 650 MG TABLET PO ×3 (09:47→22:20)
[2020-07-12] MEDS: Ascorbic Acid 500 MG TABLET PO (09:47)
[2020-07-12] MEDS: Cholecalciferol (Vitamin D3) 25 MCG TABLET 50 MCG PO (09:47)
[2020-07-12] MEDS: Midodrine HCl 10 MG TABLET 20 MG PO ×3 (09:47→22:20)
[2020-07-12] MEDS: Sucralfate Oral Suspension 1 GM/10 ML ORAL.SUSP PO ×3 (09:47→15:34)
[2020-07-12] MEDS: Nystatin Cream 15 GM TUBE 1 APPL TOPICAL ×2 (09:48→22:20)
--- NOTE | 2020-07-12 11:15 | HO.PM.IMPN ---
Subjective Subjective Date of Service: 07/12/20 Interval History: weak Cardiovascular Cardiovascular: Reports no additional cardiovascular complaints Genitourinary Genitourinary: Reports no additional male genitourinary complaints Physical Exam Vital Signs: Vital Signs: Last Vital Signs Temp 98.7 F 07/12/20 08:00 Pulse 82 07/12/20 09:47 Resp 18 07/12/20 08:00 BP 100/58 L 07/12/20 09:47 Pulse Ox 98 07/12/20 08:00 Body Mass Index 22.6 General: AO X 3, no acute distress Resp: CTA bilateral CVS: S1,S2,RRR GI: soft, non tender, distended Neuro: motor grossly intact Psych: appropriate affect Objective Data Current Medications Generic Name Dose Route Start Last Admin Trade Name Freq PRN Reason Stop Dose Admin Ascorbic Acid 500 mg 07/01/20 09:00 07/12/20 09:47 Ascorbic Acid 500 Mg Tablet PO 500 mg DAILY [facility] Administration Heparin Sodium (Porcine) 5,000 unit 07/04/20 16:45 07/11/20 16:43 Heparin Sodium,Porcine 5,000 Unit/Ml Vial INTRACATH 5,000 unit [id number] [facility] Administration Insulin Human Lispro 0 unit 07/01/20 07:30 07/12/20 08:41 Insulin Lispro 100 Unit/Ml 3 Ml Vial SUBCUT Not Given QIDACHS [facility] Protocol Midodrine 20 mg 07/02/20 15:00 07/12/20 09:47 Midodrine Hcl 10 Mg Tablet PO 20 mg TID [facility] Administration Nystatin 1 appl 07/01/20 21:00 07/12/20 09:48 Nystatin Cream 15 Gm Tube TOPICAL 1 appl BID [facility] Administration Protocol Omeprazole 20 mg 07/04/20 06:30 07/12/20 05:43 Omeprazole 20 Mg Capsule. PO 20 mg DAILY@0630 [facility] Administration Ondansetron HCl 4 mg 07/01/20 02:11 07/11/20 21:19 Ondansetron Hcl 4 Mg/2 Ml Vial IVPUSH 4 mg Q8H PRN Administration Nausea and Vomiting Pharmacy Consult 1 each 06/30/20 18:08 Consult Rx Perform Med Rec MISCELLANE ONCE PRN Consult order Sodium Bicarbonate 650 mg 07/11/20 09:00 07/12/20 09:47 Sodium Bicarbonate 650 Mg Tablet PO 650 mg TID ROJAS Administration Sodium Chloride 3 ml 07/01/20 02:11 07/12/20 09:47 0.9 % Sodium Chloride Flush 3 Ml Syringe IVFLUSH 3 ml QSHIFT [facility] Administration Sucralfate 1 gm 07/01/20 07:30 07/12/20 09:47 Sucralfate Oral Suspension 1 Gm/10 Ml Oral.Susp PO 1 gm QIDACHS [facility] Administration Vitamin D 50 mcg 07/01/20 09:00 07/12/20 09:47 Cholecalciferol (Vitamin D3) 25 Mcg Tablet PO 50 mcg DAILY [facility] Administration Labs CBC & Chem 7: 07/12/20 05:50 07/12/20 05:50 Microbiology Microbiology Results: Microbiology 07/06/20 04:52 Blood - Venous Blood Culture - Final No growth after 5 days. 07/06/20 04:52 Blood - Venous Blood Culture - Final No growth after 5 days. 07/04/20 16:15 Paracentesis Fluid Gram Stain - Final 07/04/20 16:15 Paracentesis Fluid Routine Culture - Final No growth after 2 days 07/04/20 16:15 Paracentesis Fluid Anaerobic Culture - Final NO GROWTH AFTER 5 DAYS 06/30/20 19:12 Blood - Venous Blood Culture - Final No growth after 5 days. 06/30/20 19:08 Blood - Venous Blood Culture - Final No growth after 5 days. 07/01/20 06:57 Stool Stool Culture - Final 07/01/20 Unknown Urine Catheterized - Ch Catheter Urine Culture - Final No growth. 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: Status: Acute (9) Hyperlipidemia LDL goal <100: Status: Acute (10) Essential hypertension: Status: Acute (11) Diarrhea: Status: Acute Assessment and Plan: 70M presented with FTT and TREMAYNE Acute Kidney Injury likely related to urate nephropathy vs hepatorenal, patient started on hemodialysis 07/03,uric acid level improved, patient is now hemodialysis dependent remains anuric initially patient was treated for hepatorenal syndrome with IV fluids albumin and Sandostatin Patient underwent renal biopsy 07/08, biopsy report is unrevealing Metabolic acidosis due to TREMAYNE -started po bicarb, BP remains low , continue midodrine, and hold nadolol and spironolactone. unerwent biletarl ureteral stent placement 07/10/20 but no urine output improvement making HRS more likely can probably take out stents, possibly on tuesday will need detention hd Cirrhosis / asictes (cause of cirrhosis unclear -- pt reports heavy drinking but stopped years ago, Hep C positive but viral load neg Patient is status post paracentesis 07/04, 2.5 L of clear yellowish fluid was drained, fluid cell count not suggestive of SBP , discontinued antibiotic, patient noted to have worsening abdominal distention, denies abdominal pain no shortness of breath will continue to follow LFTs stable, INR 1.3. may need further paracentesis tuesday if distension worsened DM insulin sliding scale acute on chronic anemia no active blood loss noted, Recent episode of Gi bleed h/h dropped but stable, no signs of active bleed , recent EGD showed esophageal varices as well as bleeding ulcer that was treated, continue omeprazole ,continue PPI and Carafate Procrit per Nephrology. Stage II ulcer and perianal rash would continue frequent position change nystatin powder and foam dressing to ulcer will start Glucerna Weakness and lethargy with low blood pressure stable. Severe malnutrition cont Ensure b.i.d. and Brent to promote wound healing
[2020-07-12 11:58] LABS: Glucose, Whole Blood 112 mg/dL (60-115)
[2020-07-12 16:02] LABS: Glucose, Whole Blood 107 mg/dL (60-115)
--- NOTE | 2020-07-12 17:21 | P.PNNP_ITS ---
Subjective Subjective Date of Service: 07/13/20 Interval history: weak Physical Exam Vital Signs: Vital Signs: Last Vital Signs Temp 98.5 F 07/12/20 15:09 Pulse 75 07/12/20 15:34 Resp 20 07/12/20 15:09 BP 103/53 L 07/12/20 15:34 Pulse Ox 95 07/12/20 15:09 Body Mass Index 22.6 Const: General: ill appearing Neck: Neck: Yes no JVD Resp: Effort & Inspection: no cough Cardio: Heart sounds: no murmurs and no rubs Skin: General skin exam: no ecchymosis Neuro: Motor exam (neuro): No Asterixis during motor activity present Objective Data Labs CBC & Chem 7: 07/13/20 05:32 07/13/20 05:32 Labs: Laboratory Results - last 24 hr 07/11/20 07/12/20 07/12/20 19:55 05:50 05:50 WBC 14.3 H RBC 2.99 L Hgb 8.8 L Hct 27.1 L MCV 90.6 MCH 29.4 MCHC 32.5 RDW 19.5 H Plt Count 166 MPV 10.6 Immature Gran % (Auto) 0.4 Neut % (Auto) 85.7 H Lymph % (Auto) 8.2 L [place] % (Auto) 5.0 Eos % (Auto) 0.4 Baso % (Auto) 0.3 Lymph # (Auto) 1.2 [place] # (Auto) 0.7 Eos # (Auto) 0.1 Baso # (Auto) 0.1 Abs Immat Gran (auto) 0.06 H Absolute Neuts (auto) 12.3 H Absolute Nucleated RBC 0.000 Nucleated RBC % (auto) 0.0 Sodium 136 Potassium 3.7 Chloride 103 Carbon Dioxide 14 L Anion Gap 23 H BUN 18 H Creatinine 4.24 H* Estim Creat Clear Calc 14.9 Estimated GFR 14 POC Glucose 121 H Fasting Glucose 105 H Calcium 8.1 L D 07/12/20 07/12/20 07/12/20 08:23 11:55 15:54 WBC RBC Hgb Hct MCV MCH MCHC RDW Plt Count MPV Immature Gran % (Auto) Neut % (Auto) Lymph % (Auto) [place] % (Auto) Eos % (Auto) Baso % (Auto) Lymph # (Auto) [place] # (Auto) Eos # (Auto) Baso # (Auto) Abs Immat Gran (auto) Absolute Neuts (auto) Absolute Nucleated RBC Nucleated RBC % (auto) Sodium Potassium Chloride Carbon Dioxide Anion Gap BUN Creatinine Estim Creat Clear Calc Estimated GFR POC Glucose 116 H 112 107 Fasting Glucose Calcium Microbiology Microbiology Results: Microbiology 07/06/20 04:52 Blood - Venous Blood Culture - Final No growth after 5 days. 07/06/20 04:52 Blood - Venous Blood Culture - Final No growth after 5 days. 07/04/20 16:15 Paracentesis Fluid Gram Stain - Final 07/04/20 16:15 Paracentesis Fluid Routine Culture - Final No growth after 2 days 07/04/20 16:15 Paracentesis Fluid Anaerobic Culture - Final NO GROWTH AFTER 5 DAYS 06/30/20 19:12 Blood - Venous Blood Culture - Final No growth after 5 days. 06/30/20 19:08 Blood - Venous Blood Culture - Final No growth after 5 days. 07/01/20 06:57 Stool Stool Culture - Final 07/01/20 Unknown Urine Catheterized - Ch Catheter Urine Culture - Final No growth. Assessment & Plan Assessment and plan (1) Acute renal failure: Problem details: 70-year-old male past medical history as above including cirrhosis which appears relatively compensated ,complaining of diarrhea as well as poor oral intake found to have severe ANURIC TREMAYNE and metabolic acidosis now HD dependent 1. 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 AGMA/NAGMA: resolved 3. intravascular eff arterial vol depleted on exam with incr ascities 4. liver cirrhosis with ascitis 5. anemia REC: cont HD support and tap ascites as needed; d/c ureteral stents on Tuesday; track UOP/renal func;; avoid NToxins; arranging outpt HD spot at [place] unit Status: Acute Time Spent With Patient Time: Total time spent is greater than 50% in coordination of care (as documented) at patient's floor/unit and/or counseling patient:
--- NOTE | 2020-07-12 18:42 | PC.NURSE ---
Patient's liu catheter draining blood, not enough to measure this shift. Patient c/o pain to his buttocks; stage II noted to coccyx area, very red/raw. Barrier cream, nystatin cream applied. In the afternoon, patient requesting for medication to be crushed in applesauce; patient vomited immediately after first bite; tried again about 20 minutes later; patient still reports nausea, only accepted 1 additional bite of medication. BP's in the 90s/100s today, normal for patient, midodrine administered, patient denies s/s of hypotension. No further complaints, complications.
[2020-07-12 20:15] LABS: Glucose, Whole Blood 103 mg/dL (60-115)
[2020-07-12] MEDS: ondansetron HCL 4 MG/2 ML VIAL IVPUSH (20:29)
[2020-07-13] VITALS (10 sets, daily range): BP systolic 88–116; BP diastolic 52–58; PULSE 69–86; RESP 16–18; TEMP 36.6–37.1; O2SAT 94–97
[2020-07-13 05:52] LABS: MANUAL DIFF FLAG NO
[2020-07-13 05:57] LABS: Basophils Absolute Auto 0.1 X10*3/uL (0.0-0.2); Basophils Percent Auto 0.4 % (0-2); Eosinophils Absolute Auto 0.1 X10*3/uL (0.0-0.4); Eosinophils Percent Auto 0.8 % (0-4); Hematocrit 26.4 % (42-52); Hemoglobin 8.5 g/dl (14.0-18.0); Imm Gran Abs Auto 0.08 X10*3/uL (0.00-0.03); Imm Gran Pct Auto 0.6 % (0.0-0.4); Lymphocytes Percent Auto 7.7 % (20-40); Mean Corpuscular HGB Conc 32.2 g/dl (31.0-36.0); Mean Corpuscular Volume 90.1 fL (80-98); Monocytes Absolute Auto 0.7 X10*3/uL (0.1-1.2); Monocytes Percent Auto 5.5 % (2-11); Neutrophils Absolute Auto 11.1 X10*3/uL (2.0-8.3); Platelet Count 174 X10*3/uL (160-400); Red Blood Count 2.93 X10*6/uL (4.60-5.80); Red Cell Distribution Width 19.7 % (11.0-16.0)
[2020-07-13 06:27] LABS: Alanine Aminotransferase 20 U/L (0-40); Albumin Level 3.3 g/dL (3.5-5.0); Alkaline Phosphatase 571 U/L (39-117); Anion Gap 21 (12-20); Aspartate Amino Transferase 85 U/L (5-37); Bilirubin Direct 1.4 mg/dL (0.0-0.5); Bilirubin Total 1.7 mg/dL (0.0-1.0); Blood Urea Nitrogen 28 mg/dL (9-16); Calcium 8.5 mg/dL (8.4-10.2); Carbon Dioxide 17 mmol/L (22-29); Chloride 104 mmol/L (96-108); Glucose Fasting 92 mg/dL (60-99); Magnesium 2.2 mg/dL (1.6-2.6); Potassium 3.6 mmol/L (3.3-5.1); Sodium 138 mmol/L (135-145); Total Protein 6.6 g/dL (6.5-8.0)
[2020-07-13 06:28] LABS: Creatinine Clr Calc Pharmacy 11.1; Estimated Glomerular Filt Rate 10
[2020-07-13 06:32] LABS: INTERNATIONAL NORM RATIO 1.2 (0.9-1.1); Prothrombin Time 14.2 SEC (10.8-13.0)
[2020-07-13 07:19] LABS: Glucose, Whole Blood 88 mg/dL (60-115)
[2020-07-13] MEDS: 0.9 % Sodium Chloride Flush 3 ML SYRINGE IVFLUSH ×3 (07:52→20:55)
[2020-07-13] MEDS: Cholecalciferol (Vitamin D3) 25 MCG TABLET 50 MCG PO (07:52)
[2020-07-13] MEDS: Midodrine HCl 10 MG TABLET 20 MG PO ×3 (07:52→20:55)
[2020-07-13] MEDS: Ascorbic Acid 500 MG TABLET PO (07:52)
[2020-07-13] MEDS: Sucralfate Oral Suspension 1 GM/10 ML ORAL.SUSP PO ×3 (07:52→20:55)
[2020-07-13] MEDS: Sodium Bicarbonate 650 MG TABLET PO ×3 (07:52→20:55)
[2020-07-13] MEDS: Nystatin Cream 15 GM TUBE 1 APPL TOPICAL ×2 (07:53→20:58)
--- NOTE | 2020-07-13 09:57 | HO.PM.IMPN ---
Subjective Subjective Date of Service: 07/13/20 Interval History: weak Cardiovascular Cardiovascular: Reports no additional cardiovascular complaints Respiratory Respiratory: Reports no additional respiratory complaints Physical Exam Vital Signs: Vital Signs: Last Vital Signs Temp 98 F 07/13/20 07:45 Pulse 77 07/13/20 07:52 Resp 16 07/13/20 07:45 BP 88/52 L 07/13/20 07:52 Pulse Ox 94 07/13/20 07:45 Body Mass Index 22.6 General: AO X 3, no acute distress, ill appearing, temporal wasting Resp: CTA bilateral CVS: S1,S2,RRR GI: soft, non tender, distended Neuro: motor grossly intact Psych: appropriate affect Objective Data Current Medications Generic Name Dose Route Start Last Admin Trade Name Freq PRN Reason Stop Dose Admin Ascorbic Acid 500 mg 07/01/20 09:00 07/13/20 07:52 Ascorbic Acid 500 Mg Tablet PO 500 mg DAILY [facility] Administration Heparin Sodium (Porcine) 5,000 unit 07/04/20 16:45 07/11/20 16:43 Heparin Sodium,Porcine 5,000 Unit/Ml Vial INTRACATH 5,000 unit MOWEFR@1645 [facility] Administration Insulin Human Lispro 0 unit 07/01/20 07:30 07/13/20 07:25 Insulin Lispro 100 Unit/Ml 3 Ml Vial SUBCUT Not Given QIDACHS [facility] Protocol Midodrine 20 mg 07/02/20 15:00 07/13/20 07:52 Midodrine Hcl 10 Mg Tablet PO 20 mg TID [facility] Administration Nystatin 1 appl 07/01/20 21:00 07/13/20 07:53 Nystatin Cream 15 Gm Tube TOPICAL 1 appl BID [facility] Administration Protocol Omeprazole 20 mg 07/04/20 06:30 07/13/20 05:24 Omeprazole 20 Mg Capsule.Dr PO Not Given DAILY@0630 [facility] Ondansetron HCl 4 mg 07/01/20 02:11 07/12/20 20:29 Ondansetron Hcl 4 Mg/2 Ml Vial IVPUSH 4 mg Q8H PRN Administration Nausea and Vomiting Pharmacy Consult 1 each 06/30/20 18:08 Consult Rx Perform Med Rec MISCELLANE ONCE PRN Consult order Sodium Bicarbonate 650 mg 07/11/20 09:00 07/13/20 07:52 Sodium Bicarbonate 650 Mg Tablet PO 650 mg TID ROJAS Administration Sodium Chloride 3 ml 07/01/20 02:11 07/13/20 07:52 0.9 % Sodium Chloride Flush 3 Ml Syringe IVFLUSH 3 ml QSHIFT ROJAS Administration Sucralfate 1 gm 07/01/20 07:30 07/13/20 07:52 Sucralfate Oral Suspension 1 Gm/10 Ml Oral.Susp PO 1 gm QIDACHS ROJAS Administration Vitamin D 50 mcg 07/01/20 09:00 07/13/20 07:52 Cholecalciferol (Vitamin D3) 25 Mcg Tablet PO 50 mcg DAILY ROJAS Administration Labs CBC & Chem 7: 07/13/20 05:32 07/13/20 05:32 Microbiology Microbiology Results: Microbiology 07/06/20 04:52 Blood - Venous Blood Culture - Final No growth after 5 days. 07/06/20 04:52 Blood - Venous Blood Culture - Final No growth after 5 days. 07/04/20 16:15 Paracentesis Fluid Gram Stain - Final 07/04/20 16:15 Paracentesis Fluid Routine Culture - Final No growth after 2 days 07/04/20 16:15 Paracentesis Fluid Anaerobic Culture - Final NO GROWTH AFTER 5 DAYS 06/30/20 19:12 Blood - Venous Blood Culture - Final No growth after 5 days. 06/30/20 19:08 Blood - Venous Blood Culture - Final No growth after 5 days. 07/01/20 06:57 Stool Stool Culture - Final 07/01/20 Unknown Urine Catheterized - Ch Catheter Urine Culture - Final No growth. Assessment and Plan (1) Acute renal failure: Problem details: 70-year-old male past medical history as above including cirrhosis which appears relatively compensated ,complaining of diarrhea as well as poor oral intake found to have severe ANURIC TREMAYNE and metabolic acidosis now HD dependent 1. Anuric Acute Kidney Injury: s/p HD started 07/03 ( has new Pcath as prior non-tunnelcath fell out) w/u thus far suggests acute urate nephropathy but kidney bx was unrevealing as to cause of TREMAYNE; and now s/p cysto/retrograde with stents and no signif UOP and this leads to the final dx of HRS type 1 and now incr ascites is more and more c/w with hrs as compared to when he was adm 2. AGMA/NAGMA: resolved 3. intravascular eff arterial vol depleted on exam with incr ascities 4. liver cirrhosis with ascitis 5. anemia REC: cont HD support and tap ascites as needed; d/c ureteral stents on Tuesday; track UOP/renal func;; avoid NToxins; arranging outpt HD spot at [place] unit Status: Acute (2) Metabolic acidosis: Status: Acute (3) Severe malnutrition: Status: Acute (4) GI bleed: Status: Acute (5) Acute dehydration: Status: Acute (6) Adult failure to thrive: Status: Acute (7) Ascites: Status: Acute (8) Type 2 diabetes mellitus with diabetic nephropathy: Status: Acute (9) Hyperlipidemia LDL goal <100: Status: Acute (10) Essential hypertension: Status: Acute (11) Diarrhea: Status: Acute Assessment and Plan: 70M presented with FTT and TREMAYNE Acute Kidney Injury likely related to urate nephropathy vs hepatorenal, patient started on hemodialysis 07/03,uric acid level improved, patient is now hemodialysis dependent remains anuric initially patient was treated for hepatorenal syndrome with IV fluids albumin and Sandostatin Patient underwent renal biopsy 07/08, biopsy report is unrevealing Metabolic acidosis due to TREMAYNE -started po bicarb, BP remains low , continue midodrine, and hold nadolol and spironolactone. 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 may need further paracentesis tuesday if distension worsened, so far patient is comfortable DM insulin sliding scale acute on chronic anemia no active blood loss noted, Recent episode of Gi bleed h/h dropped but stable, no signs of active bleed , recent EGD showed esophageal varices as well as bleeding ulcer that was treated, continue omeprazole ,continue PPI and Carafate Procrit per Nephrology. Stage II ulcer and perianal rash would continue frequent position change nystatin powder and foam dressing to ulcer will start Glucerna Weakness and lethargy with low blood pressure stable. Severe malnutrition cont Ensure b.i.d. and Brent to promote wound healing
[2020-07-13 11:01] LABS: Glucose, Whole Blood 80 mg/dL (60-115)
--- NOTE | 2020-07-13 12:00 | PM.PNNEP ---
Subjective Subjective Date of Service: 07/13/20 Interval history: events noted Physical Exam Vital Signs: Vital Signs: Last Vital Signs Temp 98.7 F 07/13/20 11:34 Pulse 70 07/13/20 11:34 Resp 17 07/13/20 11:34 BP 100/54 L 07/13/20 11:34 Pulse Ox 96 07/13/20 11:34 Body Mass Index 22.6 Const: General: ill appearing Neck: Neck: Yes no JVD Resp: Effort & Inspection: no cough Cardio: Heart sounds: no murmurs and no rubs Skin: General skin exam: no ecchymosis Neuro: Motor exam (neuro): No Asterixis during motor activity present Objective Data Labs CBC & Chem 7: 07/13/20 05:32 07/13/20 05:32 Labs: Laboratory Results - last 24 hr 07/12/20 07/12/20 07/13/20 15:54 20:06 05:32 WBC 13.0 H RBC 2.93 L Hgb 8.5 L Hct 26.4 L MCV 90.1 MCH 29.0 MCHC 32.2 RDW 19.7 H Plt Count 174 MPV 11.0 Immature Gran % (Auto) 0.6 H Neut % (Auto) 85.0 H Lymph % (Auto) 7.7 L [place] % (Auto) 5.5 Eos % (Auto) 0.8 Baso % (Auto) 0.4 Lymph # (Auto) 1.0 L [place] # (Auto) 0.7 Eos # (Auto) 0.1 Baso # (Auto) 0.1 Abs Immat Gran (auto) 0.08 H Absolute Neuts (auto) 11.1 H Absolute Nucleated RBC 0.000 Nucleated RBC % (auto) 0.0 PT INR Sodium Potassium Chloride Carbon Dioxide Anion Gap BUN Creatinine Estim Creat Clear Calc Estimated GFR POC Glucose 107 103 Fasting Glucose Calcium Magnesium Total Bilirubin Direct Bilirubin AST ALT Alkaline Phosphatase Total Protein Albumin 07/13/20 07/13/20 07/13/20 05:32 05:32 07:02 WBC RBC Hgb Hct MCV MCH MCHC RDW Plt Count MPV Immature Gran % (Auto) Neut % (Auto) Lymph % (Auto) [place] % (Auto) Eos % (Auto) Baso % (Auto) Lymph # (Auto) [place] # (Auto) Eos # (Auto) Baso # (Auto) Abs Immat Gran (auto) Absolute Neuts (auto) Absolute Nucleated RBC Nucleated RBC % (auto) PT 14.2 H INR 1.2 H Sodium 138 Potassium 3.6 Chloride 104 Carbon Dioxide 17 L Anion Gap 21 H BUN 28 H D Creatinine 5.67 H* Estim Creat Clear Calc 11.1 Estimated GFR 10 POC Glucose 88 Fasting Glucose 92 Calcium 8.5 Magnesium 2.2 Total Bilirubin 1.7 H Direct Bilirubin 1.4 H AST 85 H ALT 20 Alkaline Phosphatase 571 H Total Protein 6.6 Albumin 3.3 L 07/13/20 10:57 WBC RBC Hgb Hct MCV MCH MCHC RDW Plt Count MPV Immature Gran % (Auto) Neut % (Auto) Lymph % (Auto) [place] % (Auto) Eos % (Auto) Baso % (Auto) Lymph # (Auto) [place] # (Auto) Eos # (Auto) Baso # (Auto) Abs Immat Gran (auto) Absolute Neuts (auto) Absolute Nucleated RBC Nucleated RBC % (auto) PT INR Sodium Potassium Chloride Carbon Dioxide Anion Gap BUN Creatinine Estim Creat Clear Calc Estimated GFR POC Glucose 80 Fasting Glucose Calcium Magnesium Total Bilirubin Direct Bilirubin AST ALT Alkaline Phosphatase Total Protein Albumin Microbiology Microbiology Results: Microbiology 07/06/20 04:52 Blood - Venous Blood Culture - Final No growth after 5 days. 07/06/20 04:52 Blood - Venous Blood Culture - Final No growth after 5 days. 07/04/20 16:15 Paracentesis Fluid Gram Stain - Final 07/04/20 16:15 Paracentesis Fluid Routine Culture - Final No growth after 2 days 07/04/20 16:15 Paracentesis Fluid Anaerobic Culture - Final NO GROWTH AFTER 5 DAYS 06/30/20 19:12 Blood - Venous Blood Culture - Final No growth after 5 days. 06/30/20 19:08 Blood - Venous Blood Culture - Final No growth after 5 days. 07/01/20 06:57 Stool Stool Culture - Final 07/01/20 Unknown Urine Catheterized - Ch Catheter Urine Culture - Final No growth. Assessment & Plan Assessment and plan (1) Acute renal failure: Problem details: 70-year-old male past medical history as above including cirrhosis which appears relatively compensated ,complaining of diarrhea as well as poor oral intake found to have severe ANURIC TREMAYNE and metabolic acidosis now HD dependent 1. Anuric Acute Kidney Injury: s/p HD started 07/03 ( has new Pcath as prior non-tunnelcath fell out) w/u thus far suggests acute urate nephropathy but kidney bx was unrevealing as to cause of TREMAYNE; and now s/p cysto/retrograde with stents and no signif UOP and this leads to the final dx of HRS type 1 and now incr ascites is more and more c/w with hrs as compared to when he was adm 2. AGMA/NAGMA: resolved 3. intravascular eff arterial vol depleted on exam with incr ascities 4. liver cirrhosis with ascitis 5. anemia REC: cont HD support and tap ascites as needed; d/c ureteral stents on Tuesday; track UOP/renal func;; avoid NToxins; outpt HD at [place] unit Status: Acute Time Spent With Patient Time: Total time spent is greater than 50% in coordination of care (as documented) at patient's floor/unit and/or counseling patient:
[2020-07-13 17:15] LABS: Glucose, Whole Blood 72 mg/dL (60-115)
[2020-07-13 20:36] LABS: Glucose, Whole Blood 91 mg/dL (60-115)
[2020-07-13] MEDS: ondansetron HCL 4 MG/2 ML VIAL IVPUSH (21:07)
[2020-07-14 03:47] VITALS: BP 95/54; PULSE 76; RESP 18; TEMP 36.7; O2SAT 98
[2020-07-14] MEDS: Omeprazole 20 MG CAPSULE.DR PO (05:38)
[2020-07-14 07:57] LABS: Glucose, Whole Blood 79 mg/dL (60-115)
[2020-07-14 08:00] VITALS: BP 91/52; PULSE 79; RESP 20; TEMP 36.7; O2SAT 97
[2020-07-14] MEDS: 0.9 % Sodium Chloride Flush 3 ML SYRINGE IVFLUSH (08:36)
[2020-07-14] MEDS: Nystatin Cream 15 GM TUBE 1 APPL TOPICAL (08:36)
[2020-07-14] MEDS: Midodrine HCl 10 MG TABLET 20 MG PO ×2 (08:36→14:24)
[2020-07-14] MEDS: Sucralfate Oral Suspension 1 GM/10 ML ORAL.SUSP PO (08:36)
--- NOTE | 2020-07-14 09:28 | MHC.CM.PN ---
CM RECEIVED A T/C FROM PTS SON, PHILIP AT APPROXIMATELY 1625 ON 07/13/20. PHILIP REPORTED BEING CONCERNED ABOUT THE PTS LACK OF PROGRESS. HE REPORTS HE SPOKE TO THE PTS NURSE AND WAS INFORMED THE PT IS NOT EATING AND CONTINUES TO DECLINE AND THAT THERE IS NO CLEAR EXPLANATION TO WHY THIS IS HAPPENING. HE REPORTS HE WOULD LIKE TO SPEAK TO THE DOCTOR BUT ASKS THAT ANOTHER FAMILY MEMBER, FRANCOISE, BE INCLUDED BECAUSE HE HAS MORE KNOWLEDGE IN THIS AREA. PHILIP INDICATED THE FAMILY WOULD BE CALLING AGAIN LATER IN THE SAME DAY. MESSAGE RELAYED TO HOSPITALIST.
--- NOTE | 2020-07-14 10:53 | PM.DS ---
DS: Providers Provider Date of Service: 07/14/20 Date of admission: 06/30/20 21:48 Primary care physician: Unknown Physician Consults: 06/30/20 20:49 Consult to Nephrology Stat Consulting Provider: Reuben Griffin Reason for consultation: acute renal failure w/ hyperkalemia Has provider been notified: Yes 07/01/20 04:10 Consult to Gastroenterology Routine Consulting Provider: Galina Brody Reason for consultation: positive stool occult blood Has provider been notified: No 07/06/20 14:20 Consult to Urology Routine Consulting Provider: Butch Langford Reason for consultation: Acute renal failure /anuria Has provider been notified: No DS: Diagnosis Discharge Diagnosis (1) Acute renal failure: Status: Acute Problem details: 70-year-old male past medical history as above including cirrhosis which appears relatively compensated ,complaining of diarrhea as well as poor oral intake found to have severe ANURIC TREMAYNE and metabolic acidosis now HD dependent 1. Anuric Acute Kidney Injury: s/p HD started 07/03 ( has new Pcath as prior non-tunnelcath fell out) w/u thus far suggests acute urate nephropathy but kidney bx was unrevealing as to cause of TREMAYNE; and now s/p cysto/retrograde with stents and no signif UOP and this leads to the final dx of HRS type 1 and now incr ascites is more and more c/w with hrs as compared to when he was adm 2. AGMA/NAGMA: resolved 3. intravascular eff arterial vol depleted on exam with incr ascities 4. liver cirrhosis with ascitis 5. anemia REC: cont HD support and tap ascites as needed; d/c ureteral stents on Tuesday; track UOP/renal func;; avoid NToxins; outpt HD at [place] unit (2) Severe malnutrition: Status: Acute (3) Metabolic acidosis: Status: Acute (4) Adult failure to thrive: Status: Acute (5) Cirrhosis: Status: Acute (6) Hepatorenal failure: Status: Acute DS: Medications Discharge Medications Home Medications: Home Medications Medication Instructions Recorded Confirmed ascorbic acid (vitamin C) 500 mg 500 mg PO DAILY 02/19/20 06/30/20 tablet cholecalciferol (vitamin D3) 50 50 mcg PO QAM 02/19/20 06/30/20 mcg (2,000 unit) tablet ferrous sulfate 325 mg (65 mg 325 mg PO QAM 02/19/20 06/30/20 iron) tablet tamsulosin 0.4 mg capsule 0.4 mg PO BEDTIME 02/19/20 06/30/20 atorvastatin 40 mg tablet 40 mg PO BEDTIME tab 03/25/20 06/30/20 Basaglar KwikPen U-100 Insulin 14 unit SUBCUT DAILY 06/30/20 06/30/20 insulin aspart U-100 [Novolog 6 unit SUBCUT TID 06/30/20 06/30/20 Flexpen U-100 Insulin] sucralfate 10 ml PO QIDACHS 06/30/20 06/30/20 Previous Rx's Medication Instructions Recorded empagliflozin 25 mg tablet 25 mg PO QAM #30 tab 06/08/20 omeprazole 40 mg PO BID@0630,1630 #60 cap 06/21/20 midodrine 20 mg PO TID #90 tab 07/14/20 sodium bicarbonate 650 mg PO TID #90 tab 07/14/20 DS: Summary Hospital Course Hospital Course: Patient was admitted for failure to thrive and acute kidney injury. Initially patient was treated for hepatorenal syndrome with IV fluids, albumin, octreotide. Patient underwent kidney biopsy which showed underlying mild chronic renal disease attributable to diabetes and hypertension. A cause of anuric acute renal failure wa not identified morphologically. Electron microscopy is still pending. Obstructive uropathy in the absence of hydronephrosis was considered. Patient underwent bilateral ureteral stent placement, however, he continued to have no urine output. Most likely hepatorenal syndrome was the underlying etiology. Patient had PermCath placed and was started on hemodialysis. He will continue on hemodialysis as outpatient. He can also follow up with Urology to have ureteral stents removed as they are not relieving any blockage. He was started on oral bicarb for non-anion gap metabolic acidosis due to renal failure. Patient was noted to be hypotensive. He required to continue midodrine. His nadolol and Aldactone were discontinued. Patient did require paracentesis at 1 point. He had 2.5 L of clear yellowish liquid drained. Cell count was not supportive of SBP. Currently patient's abdomen is distended but soft and not tense or tender. Patient was noted to have stage II ulcer and perianal rash. Nystatin powder and foam dressing were applied. Patient should have frequent repositioning. Patient has severe malnutrition and should be continued on and short. Overall patient's prognosis is very guarded considering his liver cirrhosis and now hepatorenal syndrome on hemodialysis. This was related to his family who are aware. He will be discharged to assisted facility for rehab. Time Spent with Patient Time attestation: Total time spent providing and/or coordinating discharge services: Discharge coordination time: Greater than 30 minutes Physical Exam Vital Signs: Vital Signs: Last Vital Signs Temp 98.0 F 07/14/20 08:00 Pulse 79 07/14/20 08:00 Resp 20 07/14/20 08:00 BP 91/52 L 07/14/20 08:00 Pulse Ox 97 07/14/20 08:00 Body Mass Index 22.6 General: AO X 3, temporal wasting, ill appearing Resp: CTA bilateral CVS: S1,S2,RRR GI: soft, non tender, distended Neuro: motor grossly weak Psych: appropriate affect DS: Data Data Completed and Pending Completed studies during hospitalization [Text1]: Pending at discharge 07/08/20 11:41 Surgical [PTH] Routine Procedures Control Bleeding in Gastrointestinal Tract, Via Natural or Artificial Opening Endoscopic (06/14/20) Introduction of Mineral-based Topical Hemostatic Agent into Upper GI, Via Natural or Artificial Opening Endoscopic, [employer] 6 (06/14/20) Occlusion of Esophageal Vein with Extraluminal Device, Via Natural or Artificial Opening Endoscopic (06/14/20) Transfusion of Nonautologous Frozen Plasma into Peripheral Vein, Percutaneous Approach (06/14/20) Transfusion of Nonautologous Red Blood Cells into Peripheral Vein, Percutaneous Approach (06/14/20) Labs on day of discharge: Laboratory Results - last 24 hr 07/13/20 07/13/20 07/13/20 10:57 17:12 20:14 POC Glucose 80 72 91 07/14/20 07:37 POC Glucose 79 Discharge Plan Discharge Patient Disposition: [facility]F Referrals: Butch Langford MD [Physician] - (bilateral stent removal (was placed empirically for TREMAYNE, but did not help, ok to remove)) Tory Rosario NP [Nurse Practitioner] - 1 Week (TELE 07/17/2020 2:30PM. Tory Rosario JOY OPERATOR will call you to discuss your hospital stay.) Discharge Medications: New midodrine 10 mg Tablet 20 mg PO TID Qty: 90 RF: 0 sodium bicarbonate 650 mg Tablet 650 mg PO TID Qty: 90 RF: 0 Continued empagliflozin [Jardiance] 25 mg tablet 25 mg PO QAM Qty: 30 RF: 1 omeprazole 40 mg Capsule,Delayed Release(Dr/Ec) 40 mg PO BID@0630,1630 Qty: 60 RF: 2 sucralfate 100 mg/mL suspension 10 ml PO QIDACHS RF: 0 insulin aspart U-100 [Novolog Flexpen U-100 Insulin] 100 unit/mL (3 mL) insulin pen 6 unit subcut TID RF: 0 Basaglar KwikPen U-100 Insulin 100 unit/mL (3 mL) insulin pen 14 unit subcut DAILY RF: 0 ferrous sulfate 325 mg (65 mg iron) tablet 325 mg PO QAM RF: 0 cholecalciferol (vitamin D3) 50 mcg (2,000 unit) tablet 50 mcg PO QAM RF: 0 tamsulosin 0.4 mg capsule 0.4 mg PO BEDTIME RF: 0 ascorbic acid (vitamin C) 500 mg tablet 500 mg PO DAILY RF: 0 atorvastatin 40 mg tablet 40 mg PO BEDTIME RF: 0 Discontinued bumetanide 1 mg Tablet 1 mg PO DAILY Qty: 30 RF: 2 nadolol 20 mg Tablet 20 mg PO DAILY Qty: 30 RF: 1 spironolactone 25 mg Tablet 50 mg PO DAILY@1700 Qty: 30 RF: 1 hydrocodone-acetaminophen 5-325 mg tablet 1 tab PO Q8H PRN (Reason: pain) RF: 0 gabapentin 300 mg capsule 300 mg PO BID RF: 0 Discharge Orders: Discharge Order (Routine); Ordered 07/14/20 Ordered By: Calixto Motley Activity on Discharge: As tolerated Stand Alone Forms: Patient Portal Discharge page Care Plan Goals: maintain qulaity of life, avoid hospitalizations Health Concerns: liver cirrhosis, ESRD Plan of Treatment: continue HD, meds as adjusted. can follow up with urology as outpatient for bilateral ureteral stent removal as they did not help
--- NOTE | 2020-07-14 12:36 | P.PNNP_ITS ---
Subjective Subjective Date of Service: 07/14/20 Interval history: Events noted. Seen on HD. D/W HD RN. Tolerating HD. Hemodynamics stable on HD Physical Exam Vital Signs: Vital Signs: Last Vital Signs Temp 98.0 F 07/14/20 08:00 Pulse 79 07/14/20 08:00 Resp 20 07/14/20 08:00 BP 91/52 L 07/14/20 08:00 Pulse Ox 97 07/14/20 08:00 Body Mass Index 22.6 Const: General: tired appearing Eyes: EOM: EOMs intact bilaterally Neck: Neck: Yes supple Resp: Auscultation: diminished lung sounds Cardio: Rate: regular rate GI: Palpation (GI): Soft to palpation Neuro: General: moves all extremities Objective Data Labs CBC & Chem 7: 07/13/20 05:32 07/13/20 05:32 Labs: Laboratory Results - last 24 hr 07/13/20 07/13/20 07/14/20 17:12 20:14 07:37 POC Glucose 72 91 79 Microbiology Microbiology Results: Microbiology 07/06/20 04:52 Blood - Venous Blood Culture - Final No growth after 5 days. 07/06/20 04:52 Blood - Venous Blood Culture - Final No growth after 5 days. 07/04/20 16:15 Paracentesis Fluid Gram Stain - Final 07/04/20 16:15 Paracentesis Fluid Routine Culture - Final No growth after 2 days 07/04/20 16:15 Paracentesis Fluid Anaerobic Culture - Final NO GROWTH AFTER 5 DAYS 06/30/20 19:12 Blood - Venous Blood Culture - Final No growth after 5 days. 06/30/20 19:08 Blood - Venous Blood Culture - Final No growth after 5 days. 07/01/20 06:57 Stool Stool Culture - Final 07/01/20 Unknown Urine Catheterized - Ch Catheter Urine Culture - Final No growth. Assessment & Plan Assessment and plan (1) Acute renal failure: Problem details: 70-year-old male past medical history as above including cirrhosis which appears relatively compensated ,complaining of diarrhea as well as poor oral intake f ound to have severe ANURIC TREMAYNE and metabolic acidosis now HD dependent Anuric Acute Kidney Injury: s/p HD started 07/03 ( has new Pcath as prior non-tunnelcath fell out) w/u thus far suggests acute urate nephropathy but kidney bx was unrevealing as to cause of TREMAYNE; and now s/p cysto/retrograde with stents and no signif UOP and this leads to the final dx of HRS type 1 and now increasing ascites is more c/w with HRS Seen on HD continue HD support and tap ascites as needed; d/c ureteral stents by urology; Has outpt HD spot at [place] unit TTS 1- Human Resources Department Supervisor Carmina fischer. Outpatient orders signed. Case management could confirm all details with the unit before D/C. He could go to [facility] for rehab Status: Acute Time Spent With Patient Time: Total time spent is greater than 50% in coordination of care (as documented) at patient's floor/unit and/or counseling patient:
[2020-07-14 12:47] LABS: Glucose, Whole Blood 84 mg/dL (60-115)
[2020-07-14 13:15] VITALS: BP 129/81; PULSE 82; RESP 18; TEMP 37.3; O2SAT 97
[2020-07-14 15:08] LABS: COVID-19 Test Negative (Negative)
[2020-07-14 15:25] VITALS: BP 94/62; PULSE 84; RESP 18; TEMP 36.8; O2SAT 98
--- NOTE | 2020-07-14 15:37 | MHC.CM.PN ---
Patient has been medically cleared for dc to SNF/STR today. Patient will dc to [facility] today at 5 PM [facility]. Patient and Son/HCP/Gregory @ [phone] are aware of and in agreement with the dc plan. Second IMM addressed with Patient and original left with Patient and a copy placed on the chart.
[2020-07-14 16:19] LABS: Glucose, Whole Blood 92 mg/dL (60-115)
== END 2020-07-14 17:00 | disposition skilled nursing facility (03) | DRG 987 ==
LOC: HO.ED 21:09 → HO.EDOVER 22:10 → HO.S3 23:18 → HO.IMC 07-01 18:29
PROVIDERS: Anesthesiology; Family Medicine; Hospitalist; Internal Medicine; Internal Medicine Nephrology; Physician Assistant; Radiology Diagnostic Radiology; Urology; Admitting Provider Internal Medicine; Emergency Provider Internal Medicine; PCP Nurse Practitioner Primary Care; Visit Provider Internal Medicine
PROC: 0JH63XZ Insertion of Tunneled Vascular Access Device into Chest Subcutaneous Tissue and Fascia, Percutaneous Approach (ICD-10-PCS; principal; 2020-07-03 10:30)
PROC: 0TJB8ZZ Inspection of Bladder, Via Natural or Artificial Opening Endoscopic (ICD-10-PCS; CPT 52005; principal; 2020-07-10 12:30)
DX: K76.7 Hepatorenal syndrome (principal); I85.11 Secondary esophageal varices with bleeding; E43 Unspecified severe protein-calorie malnutrition; N17.9 Acute kidney failure, unspecified; E87.2 Acidosis; R18.8 Other ascites; K74.60 Unspecified cirrhosis of liver; E78.5 Hyperlipidemia, unspecified; E11.42 Type 2 diabetes mellitus with diabetic polyneuropathy; E86.0 Dehydration; F17.210 Nicotine dependence, cigarettes, uncomplicated; Z71.6 Tobacco abuse counseling; R34 Anuria and oliguria; Z20.818 Contact with and (suspected) exposure to other bacterial communicable diseases; E11.22 Type 2 diabetes mellitus with diabetic chronic kidney disease; N18.9 Chronic kidney disease, unspecified; D63.1 Anemia in chronic kidney disease; I95.9 Hypotension, unspecified; Z68.22 Body mass index [BMI] 22.0-22.9, adult; L89.102 Pressure ulcer of unspecified part of back, stage 2; Z79.899 Other long term (current) drug therapy
CPT/HCPCS: 36415; 36556; 36558; 49083; 50200; 71045; 74176; 76775; 76937; 77001; 77012; 80048; 80076; 80307; 80320; 81001; 81003; 82040; 82140; 82272; 82550; 82947; 82955; 83605; 83690; 83735; 83880; 83935; 84100; 84300; 84484; 84550; 85025; 85027; 85610; 85730; 86021; 86038; 86039; 86160; 86704; 86706; 86803; 86850; 86900; 86923; 87040; 87045; 87046; 87071; 87073; 87086; 87205; 87324; 87340; 87449; 87635; 87899; 88300; 88305; 88313; 88346; 88348; 88350; 89051; 90999; 93005; 93306; 96365; 97110; 97162; 99152; 99153; 99285; C1750; C1752; C1769; C2617; J0696; J2354; J2405; J2597; J2765; J3010; P9016; P9047; Q9967

== ENCOUNTER 2020-07-18 08:57 | Inpatient (IN) | payer MEDICARE, MEDICAID, OTHER, SELFPAY ==
[2020-07-18] VITALS (9 sets, daily range): BP systolic 77–105; BP diastolic 39–60; PULSE 85–97; RESP 14–18; TEMP 36.7–38.7; O2SAT 95–97; BMI 21.9
--- NOTE | ~2020-07-18 | CT_ITS ---
EXAMINATION: CT ABDOMEN AND PELVIS WITHOUT CONTRAST CLINICAL INFORMATION: Recent bilateral ureteral stent placement. COMPARISON: CT abdomen and pelvis 06/30/2020 TECHNIQUE: Multidetector volumetric imaging was performed from the superior aspect of the liver through the pubic symphysis. Sagittal and coronal reformatted images were obtained on the technologist's workstation. This CT examination was performed using dose optimization techniques as appropriate, variously including the following: *Automated exposure control *Adjustment of mA and/or kV according to patient size (this includes techniques or standardized protocols for targeted exams where dose is matched to indication/reason for exam; i.e. extremities or head) *Use of iterative reconstruction technique DLP: 399 mGy-cm FINDINGS: LUNG BASES: There are minimal atelectatic changes in both lung bases. The heart size is normal. There are coronary artery calcifications present. A right jugular central catheter is noted in the SVC. LIVER, GALLBLADDER, AND BILIARY TREE: The liver is enlarged measuring 21 cm in craniocaudad length, slightly heterogenous with a lobulated contour. There is perihepatic ascites. No focal liver lesion or intrahepatic ductal dilatation seen. The gallbladder appears surgically removed with small zoya in the fossa. PANCREAS: Unremarkable. SPLEEN: Unremarkable. ADRENAL GLANDS: Unremarkable. KIDNEYS AND URETERS: The kidneys are normal in size, shape, and attenuation. There is a 9 mm radiopaque calculi upper pole left kidney with a left ureteral stent in place. Also visualized is a right ureteral stent. There is no hydronephrosis. BLADDER: The bladder is decompressed with a Ch's catheter in place. GASTROINTESTINAL TRACT: There is scattered stool and gas seen in the colon without distention. The small bowel loops are normal caliber. Appendix is not seen. The stomach is nondistended. There is diffuse ascites. ABDOMINAL WALL: No significant hernia is appreciated. LYMPH NODES: Normal. VASCULAR: There is atherosclerotic calcification of abdominal aorta without aneurysmal dilatation. PELVIC VISCERA: Unremarkable. OSSEOUS STRUCTURES: No lytic or sclerotic process seen. There is a wedge deformity of T10 and T11 vertebrae with fusion. There is moderate ventral spondylosis lower dorsal spine. CT/CT abdomen pelvis wo con IMPRESSION: Cirrhosis with hepatomegaly and diffuse ascites. There are bilateral ureteral stents in place without hydronephrosis. The left upper pole renal calculi is stable. There is a decompressed bladder from a Ch's catheter insertion. Deformity T10 and T11 vertebrae, as described above. There is no major change compared to previous exam 06/30/2020.
--- NOTE | ~2020-07-18 | CT_ITS ---
EXAMINATION: CT ABDOMEN AND PELVIS WITH CONTRAST CLINICAL INFORMATION: Evaluate for hepatocellular carcinoma COMPARISON: Previous CT of the abdomen most recent 07/18/2020 TECHNIQUE: Multidetector volumetric images were obtained from the superior aspect of the liver through the pubic symphysis following administration 85 mL of Omnipaque 350 intravenous contrast. Sagittal and coronal reformatted images were obtained on the technologist's workstation. Oral contrast: Yes This CT examination was performed using dose optimization techniques as appropriate, variously including the following: *Automated exposure control *Adjustment of mA and/or kV according to patient size (this includes techniques or standardized protocols for targeted exams where dose is matched to indication/reason for exam; i.e. extremities or head) *Use of iterative reconstruction technique DLP: 838 mGy-cm FINDINGS: LUNG BASES: There are 2 right lower lobe nodules measuring 6 x 8 mm axial image 33 and 5 mm axial image 64 series 5. There is scarring or subsegmental atelectasis at the left lung base. LIVER, GALLBLADDER, AND BILIARY TREE: The liver appears cirrhotic. There is heterogeneous enhancement of the liver on arterial phase and venous phase images with areas of decreased peripheral enhancement. These areas are not appreciated on precontrast. No focal hyperenhancing lesion with rapid washout or pseudocapsule formation characteristic of hepatocellular carcinoma is seen. On delayed portal phase imaging there is decreased enhancement of the right lobe compared to the left lobe of the liver with sharp demarcated margin. There is thrombus seen in the anterior segment of the right portal vein and decreased enhancement may be due to vascular changes. There are areas of decreased peripheral enhancement in the left lobe of the liver measuring approximately 1 x 1.3 cm for example axial image 23 series 4 and question area in the central left lobe of the liver measuring 2.2 x 2.4 cm axial image 31 series 4 on delayed portal phase images. It is difficult to exclude focal liver lesion.. There is no biliary duct dilatation. The gallbladder is unremarkable. PANCREAS: Unremarkable. SPLEEN: Unremarkable. ADRENAL GLANDS: Unremarkable. KIDNEYS AND URETERS: There is an 8 mm stone in the upper pole of the left kidney and cortical thinning. There are bilateral internal ureteral stents in satisfactory position. No hydronephrosis is seen. BLADDER: Unremarkable. GASTROINTESTINAL TRACT: There are distended fluid-filled loops of small bowel. There are fluid-filled loops of large bowel. Appearance is suggestive of an ileus. There is a small to moderate amount of ascites in the abdomen and pelvis. The appendix is not identified. There are surgical clips in the proximal stomach. ABDOMINAL WALL: No significant hernia is appreciated. LYMPH NODES: There is bilateral inguinal lymphadenopathy. VASCULAR: There is thrombus seen in the anterior right portal vein. The remainder of the portal veins are patent. The hepatic veins are patent. The splenic vein and SMV are patent. There are multiple varices. There is evidence of atherosclerotic disease of the abdominal aorta. No aneurysm is seen. PELVIC VISCERA: Unremarkable. OSSEOUS STRUCTURES: There are degenerative changes of the spine and hip joints. There is increased thoracolumbar kyphosis which deformity and fusion of the T8 T10 and 11 vertebral bodies that appears unchanged. CT/CT abdomen pelvis w con IMPRESSION: Cirrhotic-appearing liver. Occluded anterior right portal vein. There is heterogeneous attenuation and enhancement throughout the liver. There is decreased enhancement of the right lobe with respect to the left lobe, question related to portal vein occlusion. No arterial phase enhancing lesion with rapid washout and pseudocapsule formation characteristic of hepatocellular carcinoma is seen. There are focal peripheral areas of decreased enhancement seen on both arterial and venous phase imaging and it is difficult to exclude a focal liver lesion. Follow-up liver MRI should be considered. Moderate amount of ascites. Varices. Right lower lobe pulmonary nodules. Probable ileus. Bilateral internal ureteral stents in satisfactory position. Left upper pole renal stone and overlying cortical thinning or scarring.
--- NOTE | ~2020-07-18 | US_ITS ---
EXAMINATION: ULTRASOUND-GUIDED PARACENTESIS CLINICAL INFORMATION: Failure to thrive. Ascites. Evaluate for SBP. COMPARISON: Previous CT scan of the abdomen and pelvis most recent 07/18/2020 TECHNIQUE: Procedure and risks and benefits including bleeding, infection and low blood pressure were discussed with the patient and informed consent was obtained. The right lower quadrant was prepped and draped in the usual sterile fashion. The skin and soft tissues were anesthetized with 1% lidocaine plain. Using ultrasound guidance and a 5 Irish rapid centesis catheter, access to the ascitic fluid was obtained. 2.8 L of serosanguineous fluid was removed. Diagnostic specimen was sent. The patient received albumin 25 g IV during the procedure. FINDINGS: There is a moderate amount of ascites. US/US paracentesis abd w/image IMPRESSION: Ultrasound-guided paracentesis.
--- NOTE | ~2020-07-18 | MR_ITS ---
EXAMINATION: MR ABDOMEN WITHOUT AND WITH CONTRAST CLINICAL INFORMATION: Rule out liver lesion. COMPARISON: Previous CT of the abdomen and pelvis, most recent 07/25/2020, and abdominal ultrasound, most recent May 2020. TECHNIQUE: MR abdomen was performed without and with use of 5.5 mL intravenous Gadavist gadolinium contrast. Postcontrast images are performed in multiphase dynamic sequences. Imaging was performed in 3 planes. Exam is significantly limited due to motion artifact. FINDINGS: LUNG BASES: There is a 1 cm nodule at the right lung base. For example, axial T2 image 3, 4 and 5 series 4. LIVER, GALLBLADDER, AND BILIARY TREE: The liver appears cirrhotic with lobulated contour and hypertrophy of the left lobe and caudate lobe. The liver is enlarged. Evaluation for fatty infiltration on [id number] sequences is significantly limited due to motion. Liver signal is heterogeneous-appearing. The liver demonstrates a heterogeneous enhancement suggestive of severe fibrosis. There is no early arterial phase enhancing lesion with rapid washout and pseudocapsule formation characteristic of hepatocellular carcinoma seen. Largest area of heterogeneous enhancement is a 4 x 4.3 cm area of decreased early arterial phase enhancement in the anterior segment of the right lobe of the liver. For example, image 58 series 100 and in the servando hepatis region measuring 2 x 3 cm, axial image 67 series 100. The gallbladder is unremarkable. There is no biliary duct dilatation. The hepatic veins are not well visualized on postcontrast enhancement images due to motion artifact. The anterior segment of the right portal vein is thrombosed. Peripheral branches of the medial and lateral segments of the left portal vein may be thrombosed. There is a small amount of ascites. PANCREAS: Unremarkable. SPLEEN: Normal. ADRENAL GLANDS: Normal. KIDNEYS AND URETERS: The kidneys are normal in size, shape, and enhance symmetrically. No hydronephrosis. No perinephric stranding. GASTROINTESTINAL TRACT: No bowel obstruction. No ascites or fluid collection. ABDOMINAL WALL: No significant hernia is appreciated. There is a heterogeneous signal in the right psoas muscle. This is slightly low signal on T1-weighted sequences, high signal on T2-weighted sequences and demonstrates peripheral enhancement. Appearance is questionable for a small psoas abscess. This area measures approximately 4 cm in length and 2 cm in AP and transverse dimension. LYMPH NODES: No lymphadenopathy. VASCULAR: Limited evaluation due to artifact. The abdominal aorta is normal in caliber. The IVC is patent. The main portal vein is patent. The anterior segment of the right portal vein appears occluded. The peripheral branches of the medial and lateral segments of the left portal vein may be thrombosed as well. OSSEOUS STRUCTURES: Marrow signal normal. There is increased thoracolumbar kyphosis MR/MR abdomen wo/w con IMPRESSION: 1. Limited exam due to motion artifact. Cirrhotic-appearing liver. Heterogeneous signal and enhancement of the liver suggestive of severe fibrosis. No evidence of hepatocellular carcinoma. Areas of decreased enhancement questionable for changes due to severe fibrosis and right and left portal vein thrombus. Small amount of ascites. 2. Right lower lobe pulmonary nodules. 3. Heterogeneous signal and enhancement of the right psoas muscle questionable for small abscess.
--- NOTE | ~2020-07-18 | US_ITS ---
EXAMINATION: US GUIDED PARACENTESIS CLINICAL INFORMATION: Moderate ascites. COMPARISON: None TECHNIQUE: Preliminary ultrasound imaging was performed and revealed moderate ascites in the right lower abdomen. However, the patient refused further intervention, and ultrasound-guided paracentesis was canceled. FINDINGS: Moderate ascites in the lower abdomen. However, the patient refused paracentesis and was canceled. US/US abdomen limited IMPRESSION: Moderate ascites with fluid most located in the lower abdomen. Patient refused paracentesis.
--- NOTE | ~2020-07-18 | IR_ITS ---
PROCEDURE: IR INSERTION OF TUNNEL CATHETER CLINICAL INFORMATION: Renal failure. COMPARISON: None. TECHNIQUE: Procedure and risks and benefits including bleeding, infection and pneumothorax were discussed with the patient and informed consent was obtained. All elements of maximal sterile barrier technique followed including use of cap, mask, sterile gown, sterile gloves, a sterile full body drape and hand hygiene. Also followed skin preparation with 2% chlorhexidine for cutaneous antisepsis, and sterile ultrasound preparation with sterile gel and probe cover when applicable. Right neck was prepped and draped in the usual sterile fashion. The skin and soft tissues were anesthetized with 1% lidocaine plain. Using ultrasound guidance and a 5 [place]ian micropuncture system, right internal jugular vein access was obtained. Over a 0.018 wire, a 5 [place] dilator was positioned in the SVC. A 0.035 guidewire was advanced through the 5 [place]ian dilator into the IVC. Following serial dilatation, an 11 [place]ian 13 cm in length temporary Mahurkar dialysis catheter was positioned. Catheter tip is at the cavoatrial junction. Both ports flushed easily, had good blood return and were instilled with 1.2 mL heparin 1000 unit per mL solution. Real-time ultrasound guidance was used to document vein patency and for needle entry. A formal ultrasound picture was recorded. Fluoroscopy time: 55 seconds. DAP: 240 cGy-cm2. Images: 1 saved fluoroscopic image. FINDINGS: Right internal jugular catheter with tip projecting over the SVC. IR/IR cvc insert central tunnel IMPRESSION: Right internal jugular 11.5 [place] 13 cm in length temporary Mahurkar dialysis catheter placement.
--- NOTE | ~2020-07-18 | IR_ITS ---
PROCEDURE: IR INSERTION OF TUNNEL CATHETER CLINICAL INFORMATION: Patient needs renal dialysis. COMPARISON: None. TECHNIQUE: Following explaining conversion of a temporary dialysis catheter conversion to a tunneled catheter procedure, benefits and risks, a written consent was obtained. All elements of maximal sterile barrier technique followed including use of cap, mask, sterile gown, sterile gloves, a sterile full body drape and hand hygiene. Also followed skin preparation with 2% chlorhexidine for cutaneous antisepsis, and sterile ultrasound preparation with sterile gel and probe cover when applicable. 1% lidocaine was inserted at the right anterior chest wall about one guaze length away from the right neck incision. Subcutaneous 1% lidocaine was administered from this anterior chest wall lesion to the right neck incision. A blunt tunneler attached to a catheter was inserted through the right anterior chest wall incision, all the way to the right neck incision and pulled through the right neck incision. The cuff of the catheter now lies underneath the skin, close to the right anterior chest wall lesion. The existent temporary dialysis catheter sutures were removed and a 0.35 guidewire was advanced under fluoroscopy and advanced through one of the ports into the IVC and catheter removed. The tract was dilated with a 12 [place] dilator. A 15 [place] sheath was then advanced over the guidewire and the dilator removed. The tunneler was separate from the catheter. The catheter was then inserted through the sheath. As the catheter was inserted, the peel-away sheath was gently removed, making sure the catheter was always inside the sheath. Fluoroscopy was performed and revealed the catheter entirely within the SVC. The tip of the catheter lies in the right atrium on a single image obtained. The neck incision was sutured with absorbable 3-0 suture. The right anterior chest wall incision around the catheter was sutured with 3-0 non-absorbable nylon suture. Steri-Strips were applied and sterile dressing applied postprocedure. The catheter was flushed with heparin. Patient tolerated procedure extremely well. Conscious sedation with 25 mL fentanyl and 0.5 mg of Versed was administered during the exam. Patient was approximately monitored for 30 minutes during the procedure. FINDINGS: Successful insertion of a 23 cm long 14.5 [place] tunneled catheter. The catheter tip lies in the right atrium. There were no immediate complications. IR/IR cvc insert central tunnel IMPRESSION: Successful conversion of right temporary dialysis catheter into a tunneled Permacath. The catheter tip lies in the right atrium. DAP: 2 mGy. FLUOROSCOPY TIME: 0.4 minutes.
--- NOTE | ~2020-07-18 | XR_ITS ---
EXAMINATION: XR CHEST CLINICAL INFORMATION: Fever COMPARISON: None TECHNIQUE: Frontal view of the chest was obtained. FINDINGS: The lungs are well-expanded and clear of acute process. The heart size and pulmonary vascularity is normal. There is a right jugular central catheter with its tip in mid SVC. There is no pneumothorax. No gross bony abnormality. XR/XR chest 1V IMPRESSION: Unremarkable chest exam.
[2020-07-18 09:12] LABS: Glucose, Whole Blood 68 mg/dL (60-115)
--- NOTE | 2020-07-18 09:22 | ECG_ITS ---
Test Reason : DIZZ Blood Pressure : / mmHG Vent. Rate : 086 BPM Atrial Rate : 086 BPM P-R Int : 166 ms QRS Dur : 096 ms QT Int : 420 ms P-R-T Axes : 051 046 085 degrees QTc Int : 502 ms Normal sinus rhythm Low voltage QRS Nonspecific T wave abnormality Prolonged QT Abnormal ECG When compared with ECG of 30-JUN-2020 22:51, No significant change was found Referred By: Jasmine Burks Electronically Signed By:DAVID CURTIS
[2020-07-18] MEDS: 0.9 % Sodium Chloride 1,000 ML 999 ML IVCONT ×2 (09:30)
--- NOTE | 2020-07-18 09:31 | ED.WEAKNESS ---
HPI - Weakness General Chief complaint: Failure to Thrive Stated complaint: failure to thrive Time Seen by Provider: 07/18/20 09:07 Source: patient and EMS Mode of arrival: ambulatory History of Present Illness HPI Narrative: 70-year-old male with a past medical history of cirrhosis with ascites, Anuric TREMAYNE s/p HD started on 07/03, AGMA/NAGMA, anemia, severe malnutrition, hepatic renal failure, BIBA to increased lethargy, decreased p.o. intake/failure to thrive, malaise, and blood catheter. Patient reports decreased p.o. intake, diarrhea, mild abdominal discomfort, and nausea. Denies fever, chills, cough, chest pain, SOB, vomiting, LE edema MD Complaint: generalized weakness Onset (ago): day(s) Related Data Home Medications Medication Instructions Recorded Confirmed ascorbic acid (vitamin C) 500 mg 500 mg PO DAILY 02/19/20 07/18/20 tablet cholecalciferol (vitamin D3) 50 50 mcg PO DAILY 02/19/20 07/18/20 mcg (2,000 unit) tablet ferrous sulfate 325 mg (65 mg 325 mg PO DAILY 02/19/20 07/18/20 iron) tablet tamsulosin 0.4 mg capsule 0.4 mg PO BEDTIME 02/19/20 07/18/20 atorvastatin 40 mg tablet 40 mg PO BEDTIME tab 03/25/20 07/18/20 insulin aspart U-100 [Novolog 6 unit SUBCUT TID 06/30/20 07/18/20 Flexpen U-100 Insulin] sucralfate 10 ml PO QIDACHS 06/30/20 07/18/20 empagliflozin [Jardiance] 25 mg PO DAILY 07/18/20 07/18/20 insulin glargine [Semglee Pen 14 unit SUBCUT QAM 07/18/20 07/18/20 U-100 Insulin] mirtazapine 7.5 mg PO BEDTIME 07/18/20 07/18/20 nystatin 1 appl TOPICAL BID 07/18/20 07/18/20 omeprazole 40 mg PO BID 07/18/20 07/18/20 ondansetron HCl [Zofran] 4 mg PO Q8H PRN 07/18/20 07/18/20 Previous Rx's Medication Instructions Recorded midodrine 20 mg PO TID #90 tab 07/14/20 sodium bicarbonate 650 mg PO TID #90 tab 07/14/20 Allergies Allergy/AdvReac Type Severity Reaction Status Date / Time No Known Allergies Allergy Verified 05/26/20 10:49 Review of Systems Review of Systems: Constitutional: + Weight loss, + Fever, No Chills, No Night Sweats, +Fatigue, + Malaise Cardiovascular: No Chest Pain, No SOB, No Edema Respiratory: No Cough, No Sputum Gastrointestinal: + Nausea, No Vomiting, + Diarrhea, No Constipation, + Abdominal pain Genitourinary: + Hematuria Musculoskeletal: No joint pain, No Myalgias Skin: No Skin Lesions, No rash Neuro: + Weakness, No Numbness, No Headache Yes all other systems are reviewed and are negative [facility] Past Medical History Attestation statement: The following information was validated with the patient. 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 Type 2 diabetes mellitus with hyperglycemia Weakness Surgical History History of liver biopsy Family History Family History Father Diabetes Mother Breast cancer Diabetes Cardiovascular disease Brother Diabetes Sister Diabetes Social History Social History Household Members: Family Housing: Unknown / Unable to assess Alcohol intake: former Smoking Status: Former smoker Second Hand Smoke Exposure: No Advance Directives: Yes Advance Directives on File: Yes Advance Directives Date on File: 07/18/20 service: No Current occupational status: retired Physical Exam Vital Signs: Vital Signs: Last Vital Signs Temp 101.6 F H 07/18/20 09:30 Pulse 88 07/18/20 11:08 Resp 16 07/18/20 11:08 BP 101/52 L 07/18/20 11:08 Pulse Ox 96 07/18/20 09:06 Body Mass Index 21.9 Const: General: cooperative and ill appearing Nutritional Appearance: thin Orientation/consciousness: patient oriented x3 Limitations: no limitations HENMT: Head: Yes normal to inspection Ears: hearing grossly normal bilaterally General nose exam: Normal external nose present Face and sinus: Yes normal facial exam Eyes: General: appearance normal, both eyes and all related structures EOM: EOMs intact bilaterally Neck: Neck: Yes normal visual inspection Resp: Effort & Inspection: normal respiratory effort Auscultation: clear to auscultation bilaterally Cardio: Rate: regular rate Heart sounds: S1 normal heart sound present and S2 normal heart sound present GI: Inspection: Yes normal to inspection and Yes distended Palpation (GI): Soft to palpation, nontender, no guarding and not rigid Skin: Rashes: no rashes Wounds: no wounds Neuro: General: patient oriented x3 and tone normal Extrem: General: Yes normal to inspection and Yes no pedal edema Course Course Course Narrative: -mild leukocytosis of 11.4. H/H at baseline low at 2.8 PO repletion ordered. Crit elevated at 4.7 (chronically elevated) with an anion gap of 23 likely from dehydration -bilirubins/AST/lipase chronically elevated XR chest 1V IMPRESSION: Unremarkable chest exam -bedside diagnostic paracentesis performed to r/o SBP -Patient will be admitted for further management Procedures Paracentesis Indication: Ascites Procedure: diagnostic paracentesis Location: LLQ Local Anesthetic: lidocaine 1% Amount of anesthesia used (mL): 5 Bedside Ultrasound Used: yes, Ascites confirmed and location marked Amount of fluid obtained (mL): 40 Fluid: clear and sent to lab for analysis Size of Needle Used: 18 Post Procedure Exam: awake, alert Patient Tolerated Procedure: well and no complications MDM - Weakness MDM Narrative Medical decision making narrative: 70-year-old male with a past medical history of cirrhosis with ascites, Anuric TREMAYNE s/p HD started on 07/03, AGMA/NAGMA, anemia, severe malnutrition, hepatic renal failure, BIBA to increased lethargy, decreased p.o. intake/failure to thrive, malaise, and blood catheter. Patient reports decreased p.o. intake, diarrhea, mild abdominal discomfort, and nausea. On exam hypotensive, febrile, chronically ill-appearing, abdomen distended/nontender, lungs CTA. Concern for acute on chronic dehydration/failure to thrive vs metabolic abnormalities vs ascites/SBP vs gastroenteritis vs ?ureteral stone complication Plan: EKG, labs, CXR, CT AP, lactic/blood cultures with Empiric IVF and antibiotics Medical Records Attestation: I reviewed the patient's medical records. Lab Data Attestation: I reviewed the patient's lab results. Result diagrams: 07/18/20 10:40 07/18/20 10:41 Labs: Lab Results 07/18/20 07/18/20 07/18/20 Range/Units 09:08 10:39 10:40 WBC 11.4 H (4.8-10.8) X10*3/uL RBC 2.79 L (4.60-5.80) X10*6/uL Hgb 8.1 L (14.0-18.0) g/dl Hct 25.7 L (42-52) % MCV 92.1 (80-98) fL MCH 29.0 (27.0-33.0) pg MCHC 31.5 (31.0-36.0) g/dl RDW 21.4 H (11.0-16.0) % Plt Count 197 (160-400) X10*3/uL MPV 10.0 (9.4-12.4) fL Immature Gran % (Auto) 0.5 H (0.0-0.4) % Neut % (Auto) 81.0 H (45-73) % Lymph % (Auto) 10.0 L (20-40) % [place] % (Auto) 6.2 (2-11) % Eos % (Auto) 1.6 (0-4) % Baso % (Auto) 0.7 (0-2) % Lymph # (Auto) 1.1 L (1.2-4.9) X10*3/uL [place] # (Auto) 0.7 (0.1-1.2) X10*3/uL Eos # (Auto) 0.2 (0.0-0.4) X10*3/uL Baso # (Auto) 0.1 (0.0-0.2) X10*3/uL Abs Immat Gran (auto) 0.06 H (0.00-0.03) X10*3/uL Absolute Neuts (auto) 9.3 H (2.0-8.3) X10*3/uL Absolute Nucleated RBC 0.000 (0.0-0.012) X10*3/uL Nucleated RBC % (auto) 0.0 (0.0-0.2) /100WBC Sodium (135-145) mmol/L Potassium (3.3-5.1) mmol/L Chloride (96-108) mmol/L Carbon Dioxide (22-29) mmol/L Anion Gap (12-20) BUN (9-16) mg/dL Creatinine (0.5-1.4) mg/dL Estim Creat Clear Calc Estimated GFR POC Glucose 68 (60-115) mg/dL Random Glucose (60-115) mg/dL Lactic Acid 1.7 (0.5-2.0) mmol/L Calcium (8.4-10.2) mg/dL Magnesium (1.6-2.6) mg/dL Total Bilirubin (0.0-1.0) mg/dL Direct Bilirubin (0.0-0.5) mg/dL AST (5-37) U/L ALT (0-40) U/L Alkaline Phosphatase (39-117) U/L Total Protein (6.5-8.0) g/dL Albumin (3.5-5.0) g/dL Lipase (8-78) U/L 07/18/20 07/18/20 Range/Units 10:40 10:41 WBC (4.8-10.8) X10*3/uL RBC (4.60-5.80) X10*6/uL Hgb (14.0-18.0) g/dl Hct (42-52) % MCV (80-98) fL MCH (27.0-33.0) pg MCHC (31.0-36.0) g/dl RDW (11.0-16.0) % Plt Count (160-400) X10*3/uL MPV (9.4-12.4) fL Immature Gran % (Auto) (0.0-0.4) % Neut % (Auto) (45-73) % Lymph % (Auto) (20-40) % [place] % (Auto) (2-11) % Eos % (Auto) (0-4) % Baso % (Auto) (0-2) % Lymph # (Auto) (1.2-4.9) X10*3/uL [place] # (Auto) (0.1-1.2) X10*3/uL Eos # (Auto) (0.0-0.4) X10*3/uL Baso # (Auto) (0.0-0.2) X10*3/uL Abs Immat Gran (auto) (0.00-0.03) X10*3/uL Absolute Neuts (auto) (2.0-8.3) X10*3/uL Absolute Nucleated RBC (0.0-0.012) X10*3/uL Nucleated RBC % (auto) (0.0-0.2) /100WBC Sodium 141 (135-145) mmol/L Potassium 2.8 L (3.3-5.1) mmol/L Chloride 101 (96-108) mmol/L Carbon Dioxide 20 L (22-29) mmol/L Anion Gap 23 H (12-20) BUN 17 H (9-16) mg/dL Creatinine 4.74 H* (0.5-1.4) mg/dL Estim Creat Clear Calc 12.2 Estimated GFR 12 POC Glucose (60-115) mg/dL Random Glucose 79 (60-115) mg/dL Lactic Acid (0.5-2.0) mmol/L Calcium 8.5 (8.4-10.2) mg/dL Magnesium 2.2 (1.6-2.6) mg/dL Total Bilirubin 1.5 H (0.0-1.0) mg/dL Direct Bilirubin 1.3 H (0.0-0.5) mg/dL AST 117 H (5-37) U/L ALT 19 (0-40) U/L Alkaline Phosphatase 680 H (39-117) U/L Total Protein 6.8 (6.5-8.0) g/dL Albumin 3.3 L (3.5-5.0) g/dL Lipase 90 H (8-78) U/L ECG Data Attestation: I personally reviewed and interpreted this ECG as follows: ECG interpretation date: 07/18/20 ECG interpretation time: 09:58 Prior ECG tracings: available for review Interpretation: EKG normal sinus rhythm rate of 86. Prolonged QT 502. No STEMI. Discharge Plan Discharge Prescriptions: No Action sucralfate 100 mg/mL suspension 10 ml PO QIDACHS RF: 0 insulin aspart U-100 [Novolog Flexpen U-100 Insulin] 100 unit/mL (3 mL) insulin pen 6 unit subcut TID RF: 0 midodrine 10 mg Tablet 20 mg PO TID Qty: 90 RF: 0 sodium bicarbonate 650 mg Tablet 650 mg PO TID Qty: 90 RF: 0 ondansetron HCl [Zofran] 4 mg Tablet 4 mg PO Q8H PRN (Reason: Nausea And Vomiting) RF: 0 nystatin 100,000 unit/gram Cream 1 appl TOPICAL BID RF: 0 mirtazapine 15 mg Tablet 7.5 mg PO BEDTIME RF: 0 Semglee Pen U-100 Insulin 100 unit/mL (3 mL) Insulin Pen 14 unit SUBCUT QAM RF: 0 Jardiance 25 mg tablet 25 mg PO DAILY RF: 0 omeprazole 40 mg capsule,delayed release(DR/EC) 40 mg PO BID RF: 0 ferrous sulfate 325 mg (65 mg iron) tablet 325 mg PO DAILY RF: 0 cholecalciferol (vitamin D3) 50 mcg (2,000 unit) tablet 50 mcg PO DAILY RF: 0 tamsulosin 0.4 mg capsule 0.4 mg PO BEDTIME RF: 0 ascorbic acid (vitamin C) 500 mg tablet 500 mg PO DAILY RF: 0 atorvastatin 40 mg tablet 40 mg PO BEDTIME RF: 0
[2020-07-18] MEDS: Piperacillin Sodium/Tazobactam 2.25 GM in 0.9 % Sodium Chloride 50 ML IV (10:25)
[2020-07-18 10:47] LABS: MANUAL DIFF FLAG NO
[2020-07-18 10:49] LABS: Basophils Absolute Auto 0.1 X10*3/uL (0.0-0.2); Basophils Percent Auto 0.7 % (0-2); Eosinophils Absolute Auto 0.2 X10*3/uL (0.0-0.4); Eosinophils Percent Auto 1.6 % (0-4); Hematocrit 25.7 % (42-52); Hemoglobin 8.1 g/dl (14.0-18.0); Imm Gran Abs Auto 0.06 X10*3/uL (0.00-0.03); Imm Gran Pct Auto 0.5 % (0.0-0.4); Lymphocytes Absolute Auto 1.1 X10*3/uL (1.2-4.9); Mean Corpuscular HGB Conc 31.5 g/dl (31.0-36.0); Mean Corpuscular Volume 92.1 fL (80-98); Monocytes Absolute Auto 0.7 X10*3/uL (0.1-1.2); Monocytes Percent Auto 6.2 % (2-11); Neutrophils Absolute Auto 9.3 X10*3/uL (2.0-8.3); Platelet Count 197 X10*3/uL (160-400); Red Blood Count 2.79 X10*6/uL (4.60-5.80); Red Cell Distribution Width 21.4 % (11.0-16.0); White Blood Count 11.4 X10*3/uL (4.8-10.8)
[2020-07-18] MEDS: Acetaminophen 325 MG TABLET 650 MG PO (10:50)
[2020-07-18] MEDS: vancomycin HCL 750 MG in 0.9 % Sodium Chloride 250 ML 265 MG IV (11:00)
[2020-07-18 11:04] LABS: Lactic Acid 1.7 mmol/L (0.5-2.0)
[2020-07-18 11:17] LABS: Alanine Aminotransferase 19 U/L (0-40); Albumin Level 3.3 g/dL (3.5-5.0); Alkaline Phosphatase 680 U/L (39-117); Anion Gap 23 (12-20); Aspartate Amino Transferase 117 U/L (5-37); Bilirubin Direct 1.3 mg/dL (0.0-0.5); Bilirubin Total 1.5 mg/dL (0.0-1.0); Blood Urea Nitrogen 17 mg/dL (9-16); Calcium 8.5 mg/dL (8.4-10.2); Carbon Dioxide 20 mmol/L (22-29); Chloride 101 mmol/L (96-108); Creatinine Clr Calc Pharmacy 12.2; Estimated Glomerular Filt Rate 12; Glucose Random 79 mg/dL (60-115); Magnesium 2.2 mg/dL (1.6-2.6); Potassium 2.8 mmol/L (3.3-5.1); Sodium 141 mmol/L (135-145); Total Protein 6.8 g/dL (6.5-8.0)
[2020-07-18 11:24] LABS: Lipase 90 U/L (8-78)
[2020-07-18] MEDS: Potassium Chloride Packet 20 MEQ PACKET 40 MEQ PO ×2 (12:03→16:38)
--- NOTE | 2020-07-18 13:35 | PM.IMHP ---
History of Present Illness Date of Service: 07/18/20 Chief Complaint: Failure to thrive 70-year-old male with a past medical history of cirrhosis with ascites, Diabetes, HLD recent hospitalization from 06/30 to 07/14 during which time he was treated for anuric TREMAYNE that progressed to CKD and started onstarted on 07/03, AGMA/NAGMA, anemia, severe malnutrition, hepatic renal failure, possible obstructive uropathy without hydronephrosis and had bilateral ureteral stents inserted. He was discharged on 07/14, that is 4 days ago, to [facility] amd is brought back from [place] with increased lethargy, decreased p.o. intake/failure to thrive, malaise, and blood in liu catheter, diarrhea, abdominal discomfort with nausea and fever of 11 upon arrival to ED. UA is positive with + nitrite and Leuk esterase, paracentesis shows no SBP, covid negative. A CT of abdomen was done result not yet avaiable. There is concern of possible line infection and therefore has been given Vancomycin and Zosyn. 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 Type 2 diabetes mellitus with hyperglycemia Weakness Family History Father Diabetes Mother Breast cancer Diabetes Cardiovascular disease Brother Diabetes Sister Diabetes Surgical History History of liver biopsy Social History Household Members: Family Housing: Apartment Do you presently have visiting nurse or other home services: Yes Alcohol intake: former Smoking Status: Former smoker Tobacco Type: Cigarette Packs Per Day: 2 Cigarettes Per Day: 40.0 Smoked in Last 30 Days: No Second Hand Smoke Exposure: No Use of substances other than those prescribed or required for medical reasons: No Do you feel safe in your current relationship?: No Current Relationship Is there a partner from a previous relationship who is making you feel unsafe now?: No Are you made to feel afraid or neglected: No Advance Directives: Yes Advance Directives on File: Yes Advance Directives Date on File: 07/18/20 Do you have thoughts of harming others: None Do you have a plan to hurt others: No Plan Recently lost weight without trying: No service: No Current occupational status: retired [employer] Allergies Allergy/AdvReac Type Severity Reaction Status Date / Time No Known Allergies Allergy Verified 05/26/20 10:49 Active Medications: Current Medications Generic Name Dose Route Start Last Admin Trade Name Freq PRN Reason Stop Dose Admin Pharmacy Consult 1 each 07/18/20 09:22 Consult Rx Perform Med Rec MISCELLANE ONCE PRN Consult order Home Medications Medication Instructions Recorded Confirmed Last Taken Type ascorbic acid (vitamin C) 500 mg 500 mg PO DAILY 02/19/20 07/18/20 07/17/20 History tablet cholecalciferol (vitamin D3) 50 50 mcg PO DAILY 02/19/20 07/18/20 07/17/20 History mcg (2,000 unit) tablet ferrous sulfate 325 mg (65 mg 325 mg PO DAILY 02/19/20 07/18/20 07/17/20 History iron) tablet tamsulosin 0.4 mg capsule 0.4 mg PO BEDTIME 02/19/20 07/18/20 07/17/20 History atorvastatin 40 mg tablet 40 mg PO BEDTIME tab 03/25/20 07/18/20 07/17/20 History insulin aspart U-100 [Novolog 6 unit SUBCUT TID 06/30/20 07/18/20 07/17/20 History Flexpen U-100 Insulin] sucralfate 10 ml PO QIDACHS 06/30/20 07/18/20 07/17/20 History empagliflozin [Jardiance] 25 mg PO DAILY 07/18/20 07/18/20 07/17/20 History insulin glargine [Semglee Pen 14 unit SUBCUT QAM 07/18/20 07/18/20 07/17/20 History U-100 Insulin] mirtazapine 7.5 mg PO BEDTIME 07/18/20 07/18/20 07/17/20 History nystatin 1 appl TOPICAL BID 07/18/20 07/18/20 07/17/20 History omeprazole 40 mg PO BID 07/18/20 07/18/20 07/17/20 History ondansetron HCl [Zofran] 4 mg PO Q8H PRN 07/18/20 07/18/20 Unknown History Physical Exam Vital Signs and Narrative: Vital Signs: Last Vital Signs Temp 101.6 F H 07/18/20 09:30 Pulse 88 07/18/20 11:08 Resp 16 07/18/20 11:08 BP 101/52 L 07/18/20 11:08 Pulse Ox 96 07/18/20 09:06 Body Mass Index 21.9 Results Labs CBC and Chem 7: 07/18/20 10:40 07/19/20 06:56 Labs: Laboratory Results - last 24 hr 07/18/20 07/18/20 07/18/20 09:08 10:39 10:40 Hct 25.7 L MCV 92.1 MCH 29.0 MCHC 31.5 RDW 21.4 H Plt Count 197 MPV 10.0 Immature Gran % (Auto) 0.5 H Neut % (Auto) 81.0 H Lymph % (Auto) 10.0 L [place] % (Auto) 6.2 Eos % (Auto) 1.6 Baso % (Auto) 0.7 Lymph # (Auto) 1.1 L [place] # (Auto) 0.7 Eos # (Auto) 0.2 Baso # (Auto) 0.1 Abs Immat Gran (auto) 0.06 H Absolute Neuts (auto) 9.3 H Absolute Nucleated RBC 0.000 Nucleated RBC % (auto) 0.0 Anion Gap Creatinine Estim Creat Clear Calc Estimated GFR POC Glucose 68 Random Glucose Lactic Acid 1.7 Calcium Magnesium Total Bilirubin Direct Bilirubin AST ALT Alkaline Phosphatase Total Protein Albumin Lipase 07/18/20 07/18/20 10:40 10:41 Hct MCV MCH MCHC RDW Plt Count MPV Immature Gran % (Auto) Neut % (Auto) Lymph % (Auto) [place] % (Auto) Eos % (Auto) Baso % (Auto) Lymph # (Auto) [place] # (Auto) Eos # (Auto) Baso # (Auto) Abs Immat Gran (auto) Absolute Neuts (auto) Absolute Nucleated RBC Nucleated RBC % (auto) Anion Gap 23 H Creatinine 4.74 H* Estim Creat Clear Calc 12.2 Estimated GFR 12 POC Glucose Random Glucose 79 Lactic Acid Calcium 8.5 Magnesium 2.2 Total Bilirubin 1.5 H Direct Bilirubin 1.3 H AST 117 H ALT 19 Alkaline Phosphatase 680 H Total Protein 6.8 Albumin 3.3 L Lipase 90 H Imaging Radiologist's Impressions: Impressions Chest X-Ray 07/18/20 09:23 IMPRESSION: Unremarkable chest exam. Assessment and Plan (1) Adult failure to thrive: Status: Acute (2) Fever: Status: Acute (3) Anemia in chronic kidney disease: Status: Acute (4) ESRD (end stage renal disease) on dialysis: Status: Acute (5) Type 2 diabetes mellitus with diabetic nephropathy: Status: Acute 70-year-old male with a past medical history of cirrhosis with ascites, Diabetes, HLD recent hospitalization from 06/30 to 07/14 during which time he was treated for anuric TREMAYNE with AGMA/NAGMA that progressed to CKD and started on HD on 07/03, anemia, severe malnutrition, hepatic renal failure, possible obstructive uropathy without hydronephrosis and had bilateral ureteral stents inserted. He was discharged on 07/14, that is 4 days ago, to SNF and is brought back from [place] with increased lethargy, decreased p.o. intake/failure to thrive, malaise, and blood in liu catheter, diarrhea, abdominal discomfort with nausea and fever of 11 upon arrival to ED. UA is positive with + nitrite and Leuk esterase, paracentesis shows no SBP, covid negative. A CT of abdomen was done result not yet availabln. There is concern of possible line infection and therefore has been given Vancomycin and Zosyn. 1. Failure to thrive likely multifactorial from possible occult infection and chronic medical issues--will investigate as below 2. Fever--concern for line infection -Blood cultures drawn -We should draw culture through dialysis catheter -Empiric Vancomycin around dialysis 3. UTI--Ceftriaxone 4. CKD--Hemodialysis per Nephrology 5. Anemia of chronic disease--H/H is stable 6. Liver Cirrhosis--no SBP 7. Hypokalemia--oral replacment dVT prophylaxis --compression deviced d/t anemia
[2020-07-18 13:44] LABS: Glucose Urine UA NEG (NEG); Leukocyte Esterase Urine 3+ (NEG); Nitrite Urine POS (NEG); UACC Culture Trigger YES; Urine Blood 3+ (NEG); Urine Ketones 15 MG/DL (NEG); Urine Protein 3+ MG/DL (NEG-TRACE)
[2020-07-18 13:47] LABS: Appearance Urine TURBID; Color Urine BROWN
[2020-07-18 13:52] LABS: MN% 95.3 %; PMN% 4.7 %; WBC Peritoneal Fluid 0.089 X10*3/uL
[2020-07-18 13:53] LABS: RBC Peritoneal Fluid < 0.002 X10*6/uL
[2020-07-18 13:55] LABS: Bacteria Urine TRACE /LPF; Mucus Urine 1+ /LPF; RBC Urine TNTC /HPF (0); Squamous Epithelial Cell Urine 1+ /LPF; WBC Urine TNTC /HPF (0-4)
[2020-07-18 14:34] LABS: Influenza A PCR NEGATIVE (Negative); Influenza B PCR NEGATIVE (Negative); Resp Syncy Virus RNA Qual PCR NEGATIVE (Negative); SARS COV2 PCR INHOUSE NEGATIVE (Negative)
[2020-07-18 14:35] LABS: INTERNATIONAL NORM RATIO 1.2 (0.9-1.1); Prothrombin Time 14.1 SEC (10.8-13.0)
[2020-07-18 14:38] LABS: Partial Thromboplastin Time 33.2 SEC (24.1-38.0)
[2020-07-18 14:43] LABS: BF Shift QC OK YES; Lymphocyte Peritoneal Fl 75 %; Monocytes Peritoneal Fl 15 %; Neutrophils Peritoneal Fluid 4 %; Other Peritioneal Fl 6 %
--- NOTE | 2020-07-18 16:58 | PC.NURSE ---
call for report, states rn will call back
--- NOTE | 2020-07-18 17:18 | PC.NURSE ---
second attempt to give report to yoan on med surg
[2020-07-18 17:39] LABS: Glucose, Whole Blood 47 mg/dL (60-115)
[2020-07-18] MEDS: Dextrose 5 % and 0.9 % NaCl 1,000 ML 125 ML IVCONT (17:48)
[2020-07-18 18:18] LABS: Glucose, Whole Blood 148 mg/dL (60-115)
[2020-07-18 21:09] LABS: Glucose, Whole Blood 130 mg/dL (60-115)
[2020-07-18] MEDS: Atorvastatin Calcium 40 MG TABLET PO (21:14)
[2020-07-18] MEDS: Mirtazapine 7.5 MG TABLET PO (21:14)
[2020-07-18] MEDS: Sucralfate Oral Suspension 1 GM/10 ML ORAL.SUSP PO (21:14)
[2020-07-18] MEDS: Tamsulosin HCL 0.4 MG CAPSULE PO (21:14)
[2020-07-18] MEDS: Sodium Bicarbonate 650 MG TABLET PO (21:14)
[2020-07-18] MEDS: Nystatin Cream 15 GM TUBE 1 APPL TOPICAL (22:30)
[2020-07-19] VITALS (7 sets, daily range): BP systolic 90–96; BP diastolic 52–59; PULSE 84–93; RESP 16–17; TEMP 36.1–36.6; O2SAT 94–98
[2020-07-19] MEDS: Dextrose 5 % and 0.45 % NaCl 1,000 ML 100 ML IVCONT ×3 (02:03→23:44)
[2020-07-19] MEDS: Omeprazole 40 MG CAPSULE.DR PO ×2 (05:29→18:04)
[2020-07-19] MEDS: cefTRIAXone sodium 1 GM in 0.9 % Sodium Chloride 50 ML IV (06:46)
[2020-07-19 07:55] LABS: Glucose, Whole Blood 138 mg/dL (60-115)
[2020-07-19 08:24] LABS: Anion Gap 19 (12-20); Blood Urea Nitrogen 21 mg/dL (9-16); Calcium 7.6 mg/dL (8.4-10.2); Carbon Dioxide 17 mmol/L (22-29); Chloride 106 mmol/L (96-108); Creatinine Clr Calc Pharmacy 11.2; Estimated Glomerular Filt Rate 11; Glucose Random 148 mg/dL (60-115); Potassium 2.7 mmol/L (3.3-5.1); Sodium 139 mmol/L (135-145)
[2020-07-19] MEDS: Cholecalciferol (Vitamin D3) 25 MCG TABLET 50 MCG PO (08:38)
[2020-07-19] MEDS: Midodrine HCl 10 MG TABLET 20 MG PO ×3 (08:38→18:04)
[2020-07-19] MEDS: Ascorbic Acid 500 MG TABLET PO (08:38)
[2020-07-19] MEDS: Sodium Bicarbonate 650 MG TABLET PO ×2 (08:39→18:04)
[2020-07-19] MEDS: Nystatin Cream 15 GM TUBE 1 APPL TOPICAL ×2 (08:40→21:47)
--- NOTE | 2020-07-19 09:19 | P.PNIM_ITS ---
Subjective Subjective Date of Service: 07/21/20 Interval History: Seen in follow-up for adult failure to thrive have fever her UTI concern for possible catheter infection. Common hematuria. He has a vague abdominal pain paracenteses yesterday was unremarkable for SBP. Review of Systems Gen: no fever Resp: no sob, no cough CV: no chest, no SHELBY, no leg edema GI: No n/v, + abd pain Neuro: No confusion Physical Exam Vital Signs: Vital Signs: Last Vital Signs Temp 96.9 F 07/19/20 07:42 Pulse 89 07/19/20 08:38 Resp 17 07/19/20 07:42 BP 96/52 L 07/19/20 08:38 Pulse Ox 94 07/19/20 07:42 Body Mass Index 21.9 Const: General: cooperative and ill appearing Nutritional Appearance: thin Orientation/consciousness: patient oriented x3 Limitations: no limitations HENMT: Head: Yes normal to inspection Ears: hearing grossly normal bilaterally General nose exam: Normal external nose present Face and sinus: Yes normal facial exam Eyes: General: appearance normal, both eyes and all related structures EOM: EOMs intact bilaterally Neck: Neck: Yes normal visual inspection Resp: Effort & Inspection: normal respiratory effort Auscultation: clear to auscultation bilaterally Cardio: Rate: regular rate Heart sounds: S1 normal heart sound present and S2 normal heart sound present GI: Inspection: Yes normal to inspection and Yes distended Palpation (GI): Soft to palpation, nontender, no guarding and not rigid Skin: Rashes: no rashes Wounds: no wounds Neuro: General: patient oriented x3 and tone normal Extrem: General: Yes normal to inspection and Yes no pedal edema Objective Data Current Medications Generic Name Dose Route Start Last Admin Trade Name Shahzadq PRN Reason Stop Dose Admin Ascorbic Acid 500 mg 07/19/20 09:00 07/19/20 08:38 Ascorbic Acid 500 Mg Tablet PO 500 mg DAILY ROJAS Administration Atorvastatin Calcium 40 mg 07/18/20 21:00 07/18/20 21:14 Atorvastatin Calcium 40 Mg Tablet PO 40 mg BEDTIME ROJAS Administration Ferrous Sulfate 324 mg 07/19/20 09:00 07/19/20 08:51 Ferrous Sulfate 324 Mg Tablet.Dr PO Not Given DAILY ROJAS Dextrose/Sodium Chloride 1,000 mls @ 100 mls/hr 07/18/20 18:30 07/19/20 08:39 D51/2ns IVCONT Not Given .Q10H [facility] Ceftriaxone Sodium 1 gm/ 50 mls @ 100 mls/hr 07/19/20 07:00 07/19/20 09:05 Sodium Chloride IV Infused Q24H [facility] Infusion Insulin Glargine 14 unit 07/19/20 09:00 07/19/20 08:49 Insulin Glargine,Hum.Rec.Anlog 100 Unit/Ml 10 Ml Vial SUBCUT Not Given DAILY [facility] Insulin Human Lispro 0 unit 07/18/20 16:30 07/19/20 07:56 Insulin Lispro 100 Unit/Ml 3 Ml Vial SUBCUT Not Given QIDACHS [facility] Protocol Midodrine 20 mg 07/19/20 08:00 07/19/20 08:38 Midodrine Hcl 10 Mg Tablet PO 20 mg TIDWM ROJAS Administration Mirtazapine 7.5 mg 07/18/20 21:00 07/18/20 21:14 Mirtazapine 7.5 Mg Tablet PO 7.5 mg BEDTIME [facility] Administration Non-Formulary Medication 25 mg 07/19/20 09:00 Empagliflozin [Jardiance] PO DAILY ROJAS Nystatin 1 appl 07/18/20 21:00 07/19/20 08:40 Nystatin Cream 15 Gm Tube TOPICAL 1 appl BID [facility] Administration Protocol Omeprazole 40 mg 07/19/20 06:30 07/19/20 05:29 Omeprazole 40 Mg Capsule.Dr PO 40 mg BID@0630,1630 [facility] Administration Ondansetron HCl 4 mg 07/18/20 18:17 Ondansetron Hcl 4 Mg/2 Ml Vial IVPUSH Q8H PRN Nausea and Vomiting Pharmacy Consult 1 each 07/18/20 09:22 Consult Rx Perform Med Rec MISCELLANE ONCE PRN Consult order Sodium Bicarbonate 650 mg 07/18/20 21:00 07/19/20 08:39 Sodium Bicarbonate 650 Mg Tablet PO 650 mg TID ROJAS Administration Sodium Chloride 3 ml 07/18/20 18:17 07/19/20 08:40 0.9 % Sodium Chloride Flush 3 Ml Syringe IVFLUSH Not Given QSHIFT [facility] Sucralfate 1 gm 07/18/20 18:17 07/19/20 08:51 Sucralfate Oral Suspension 1 Gm/10 Ml Oral.Susp PO Not Given QIDACHS [facility] Tamsulosin HCl 0.4 mg 07/18/20 21:00 07/18/20 21:14 Tamsulosin Hcl 0.4 Mg Capsule PO 0.4 mg BEDTIME ROJAS Administration Vitamin D 50 mcg 07/19/20 09:00 07/19/20 08:38 Cholecalciferol (Vitamin D3) 25 Mcg Tablet PO 50 mcg DAILY ROJAS Administration Labs CBC & Chem 7: 07/21/20 06:14 07/21/20 06:14 Microbiology Microbiology Results: Microbiology 07/18/20 13:34 Abdominal Fluid Gram Stain - Final Assessment and Plan (1) Adult failure to thrive: Status: Acute (2) Fever: Status: Acute (3) Anemia in chronic kidney disease: Status: Acute (4) ESRD (end stage renal disease) on dialysis: Status: Acute (5) Type 2 diabetes mellitus with diabetic nephropathy: Status: Acute Assessment and Plan: 70-year-old male with a past medical history of cirrhosis with ascites, Diabetes, HLD recent hospitalization from 06/30 to 07/14 during which time he was treated for anuric TREMAYNE with AGMA/NAGMA that progressed to CKD and started on HD on 07/03, anemia, severe malnutrition, hepatic renal failure, possible obstructive uropathy without hydronephrosis and had bilateral ureteral stents inserted. He was discharged on 07/14, that is 4 days ago, to SNF and is brought back from [place] with increased lethargy, decreased p.o. intake/failure to thrive, malaise, and blood in liu catheter, diarrhea, abdominal discomfort with nausea and fever of 11 upon arrival to ED. UA is positive with + nitrite and Leuk esterase, paracentesis shows no SBP, covid negative. A CT of abdomen was done result not yet availabln. There is concern of possible line infection and therefore has been given Vancomycin and Zosyn. 1. Failure to thrive likely multifactorial from possible occult infection and chronic medical issues--will investigate as below 2. Fever--concern for line infection, no further episode -Blood cultures thus far negative -Empiric Vancomycin around dialysis 3. UTI--Ceftriaxone, follow culture 4. CKD--Hemodialysis per Nephrology, Cr is higher 5. Anemia of chronic disease--H/H is stable 6. Liver Cirrhosis--no SBP 7. Hypokalemia--oral replacment and IV replacment, check mag and repeat lab later 8. Hematuria--blood in Liu, Urology consult. 8. Moderate protein calory malnutrion--Ensure dVT prophylaxis --compression deviced d/t anemia
--- NOTE | 2020-07-19 10:11 | PM.PNNEP ---
Subjective Subjective Date of Service: 07/19/20 Interval history: Patient seen and examined Physical Exam Vital Signs: Vital Signs: Last Vital Signs Temp 96.9 F 07/19/20 07:42 Pulse 89 07/19/20 08:38 Resp 17 07/19/20 07:42 BP 96/52 L 07/19/20 08:38 Pulse Ox 94 07/19/20 07:42 Body Mass Index 21.9 Objective Data Labs CBC & Chem 7: 07/18/20 10:40 07/19/20 06:56 Labs: Laboratory Results - last 24 hr 07/18/20 07/18/20 07/18/20 09:08 10:39 10:40 WBC 11.4 H RBC 2.79 L Hgb 8.1 L Hct 25.7 L MCV 92.1 MCH 29.0 MCHC 31.5 RDW 21.4 H Plt Count 197 MPV 10.0 Immature Gran % (Auto) 0.5 H Neut % (Auto) 81.0 H Lymph % (Auto) 10.0 L [place] % (Auto) 6.2 Eos % (Auto) 1.6 Baso % (Auto) 0.7 Lymph # (Auto) 1.1 L [place] # (Auto) 0.7 Eos # (Auto) 0.2 Baso # (Auto) 0.1 Abs Immat Gran (auto) 0.06 H Absolute Neuts (auto) 9.3 H Absolute Nucleated RBC 0.000 Nucleated RBC % (auto) 0.0 PT INR APTT Sodium Potassium Chloride Carbon Dioxide Anion Gap BUN Creatinine Estim Creat Clear Calc Estimated GFR POC Glucose 68 Random Glucose Lactic Acid 1.7 Calcium Magnesium Total Bilirubin Direct Bilirubin AST ALT Alkaline Phosphatase Total Protein Albumin Lipase Urine Color Urine Appearance Urine pH Ur Specific [place] Urine Protein Urine Glucose (UA) Urine Ketones Urine Blood Urine Nitrite Ur Leukocyte Esterase Urine RBC Urine WBC Ur Squamous Epith Cells Urine Bacteria Urine Mucus Urine Yeast Peritoneal WBC Peritoneal RBC Periton Neutrophils Periton Lymphocytes Peritoneal Monocytes Peritoneal Other Cells Coronavirus (PCR) Influenza Type A (PCR) Influenza Type B (PCR) RSV RNA Qual (PCR) 07/18/20 07/18/20 07/18/20 10:40 10:41 13:13 WBC RBC Hgb Hct MCV MCH MCHC RDW Plt Count MPV Immature Gran % (Auto) Neut % (Auto) Lymph % (Auto) [place] % (Auto) Eos % (Auto) Baso % (Auto) Lymph # (Auto) [place] # (Auto) Eos # (Auto) Baso # (Auto) Abs Immat Gran (auto) Absolute Neuts (auto) Absolute Nucleated RBC Nucleated RBC % (auto) PT INR APTT Sodium 141 Potassium 2.8 L Chloride 101 Carbon Dioxide 20 L Anion Gap 23 H BUN 17 H Creatinine 4.74 H* Estim Creat Clear Calc 12.2 Estimated GFR 12 POC Glucose Random Glucose 79 Lactic Acid Calcium 8.5 Magnesium 2.2 Total Bilirubin 1.5 H Direct Bilirubin 1.3 H AST 117 H ALT 19 Alkaline Phosphatase 680 H Total Protein 6.8 Albumin 3.3 L Lipase 90 H Urine Color Urine Appearance Urine pH Ur Specific [place] Urine Protein Urine Glucose (UA) Urine Ketones Urine Blood Urine Nitrite Ur Leukocyte Esterase Urine RBC Urine WBC Ur Squamous Epith Cells Urine Bacteria Urine Mucus Urine Yeast Peritoneal WBC Peritoneal RBC Periton Neutrophils Periton Lymphocytes Peritoneal Monocytes Peritoneal Other Cells Coronavirus (PCR) NEGATIVE Influenza Type A (PCR) NEGATIVE Influenza Type B (PCR) NEGATIVE RSV RNA Qual (PCR) NEGATIVE 07/18/20 07/18/20 07/18/20 13:15 13:38 14:14 WBC RBC Hgb Hct MCV MCH MCHC RDW Plt Count MPV Immature Gran % (Auto) Neut % (Auto) Lymph % (Auto) [place] % (Auto) Eos % (Auto) Baso % (Auto) Lymph # (Auto) [place] # (Auto) Eos # (Auto) Baso # (Auto) Abs Immat Gran (auto) Absolute Neuts (auto) Absolute Nucleated RBC Nucleated RBC % (auto) PT 14.1 H INR 1.2 H APTT 33.2 Sodium Potassium Chloride Carbon Dioxide Anion Gap BUN Creatinine Estim Creat Clear Calc Estimated GFR POC Glucose Random Glucose Lactic Acid Calcium Magnesium Total Bilirubin Direct Bilirubin AST ALT Alkaline Phosphatase Total Protein Albumin Lipase Urine Color BROWN Urine Appearance TURBID Urine pH 7.0 Ur Specific [place] 1.020 Urine Protein 3+ H Urine Glucose (UA) NEG Urine Ketones 15 Urine Blood 3+ H Urine Nitrite POS H Ur Leukocyte Esterase 3+ H Urine RBC TNTC H Urine WBC TNTC H Ur Squamous Epith Cells 1+ Urine Bacteria TRACE Urine Mucus 1+ Urine Yeast 1+ Peritoneal WBC 0.089 Peritoneal RBC < 0.002 [place] Neutrophils 4 [place]iton Lymphocytes 75 Peritoneal Monocytes 15 Peritoneal Other Cells 6 Coronavirus (PCR) Influenza Type A (PCR) Influenza Type B (PCR) RSV RNA Qual (PCR) 07/18/20 07/18/20 07/18/20 17:35 18:13 21:04 WBC RBC Hgb Hct MCV MCH MCHC RDW Plt Count MPV Immature Gran % (Auto) Neut % (Auto) Lymph % (Auto) [place] % (Auto) Eos % (Auto) Baso % (Auto) Lymph # (Auto) [place] # (Auto) Eos # (Auto) Baso # (Auto) Abs Immat Gran (auto) Absolute Neuts (auto) Absolute Nucleated RBC Nucleated RBC % (auto) PT INR APTT Sodium Potassium Chloride Carbon Dioxide Anion Gap BUN Creatinine Estim Creat Clear Calc Estimated GFR POC Glucose 47 L* 148 H 130 H Random Glucose Lactic Acid Calcium Magnesium Total Bilirubin Direct Bilirubin AST ALT Alkaline Phosphatase Total Protein Albumin Lipase Urine Color Urine Appearance Urine pH Ur Specific [place] Urine Protein Urine Glucose (UA) Urine Ketones Urine Blood Urine Nitrite Ur Leukocyte Esterase Urine RBC Urine WBC Ur Squamous Epith Cells Urine Bacteria Urine Mucus Urine Yeast Peritoneal WBC Peritoneal RBC Periton Neutrophils Periton Lymphocytes Peritoneal Monocytes Peritoneal Other Cells Coronavirus (PCR) Influenza Type A (PCR) Influenza Type B (PCR) RSV RNA Qual (PCR) 07/19/20 07/19/20 06:56 07:50 WBC RBC Hgb Hct MCV MCH MCHC RDW Plt Count MPV Immature Gran % (Auto) Neut % (Auto) Lymph % (Auto) [place] % (Auto) Eos % (Auto) Baso % (Auto) Lymph # (Auto) [place] # (Auto) Eos # (Auto) Baso # (Auto) Abs Immat Gran (auto) Absolute Neuts (auto) Absolute Nucleated RBC Nucleated RBC % (auto) PT INR APTT Sodium 139 Potassium 2.7 L Chloride 106 Carbon Dioxide 17 L Anion Gap 19 BUN 21 H Creatinine 5.16 H* Estim Creat Clear Calc 11.2 Estimated GFR 11 POC Glucose 138 H Random Glucose 148 H D Lactic Acid Calcium 7.6 L D Magnesium Total Bilirubin Direct Bilirubin AST ALT Alkaline Phosphatase Total Protein Albumin Lipase Urine Color Urine Appearance Urine pH Ur Specific [place] Urine Protein Urine Glucose (UA) Urine Ketones Urine Blood Urine Nitrite Ur Leukocyte Esterase Urine RBC Urine WBC Ur Squamous Epith Cells Urine Bacteria Urine Mucus Urine Yeast Peritoneal WBC Peritoneal RBC Periton Neutrophils Periton Lymphocytes Peritoneal Monocytes Peritoneal Other Cells Coronavirus (PCR) Influenza Type A (PCR) Influenza Type B (PCR) RSV RNA Qual (PCR) Microbiology Microbiology Results: Microbiology 07/18/20 13:34 Abdominal Fluid Gram Stain - Final 07/18/20 13:34 Abdominal Fluid Anaerobic Culture - Preliminary No growth to date. 07/18/20 13:34 Abdominal Fluid Body Fluid Culture - Preliminary No growth after 1 day Assessment & Plan Assessment and plan (1) TREMAYNE (acute kidney injury): Status: Acute (2) Hypokalemia: Status: Acute (3) Fever: Status: Acute (4) Liver cirrhosis: Status: Acute Assessment and Plan: TREMAYNE HD dependent elevated WBC and Fever concerning for line infection could be also SBP hematuria but CT scan negative for hydronephrosis (ureteral stents in place) REC replace potassium follow blood culture IV antibiotics HD today renal diet epogen per protocol Thank you Time Spent With Patient Time: Total time spent is greater than 50% in coordination of care (as documented) at patient's floor/unit and/or counseling patient:
[2020-07-19] MEDS: Potassium Chloride/H20 10 MEQ/100 ML PIGGYBACK 100 MEQ IV ×2 (11:07→18:03)
[2020-07-19] MEDS: Sucralfate Oral Suspension 1 GM/10 ML ORAL.SUSP PO ×2 (11:17→18:04)
[2020-07-19 11:18] LABS: Glucose, Whole Blood 168 mg/dL (60-115)
[2020-07-19] MEDS: Insulin Lispro 100 UNIT/ML 3 ML VIAL SUBCUT (11:26)
[2020-07-19 17:54] LABS: Anion Gap 15 (12-20); Carbon Dioxide 25 mmol/L (22-29); Chloride 101 mmol/L (96-108); Creatinine Clr Calc Pharmacy 37.6; Estimated Glomerular Filt Rate 45; Glucose Random 100 mg/dL (60-115); Potassium 3.1 mmol/L (3.3-5.1); Sodium 138 mmol/L (135-145)
[2020-07-19 18:08] LABS: Glucose, Whole Blood 94 mg/dL (60-115)
[2020-07-19 18:11] LABS: Blood Urea Nitrogen 6 mg/dL (9-16); Calcium 9.1 mg/dL (8.4-10.2)
[2020-07-19 20:33] LABS: Glucose, Whole Blood 143 mg/dL (60-115)
--- NOTE | 2020-07-19 22:29 | W.PM.IDCN ---
History of Present Illness Data of Consult Service Date: 07/19/20 Requesting physician: Jose Fajardo Primary Care Provider: MD ANGELITA Napier Reason for consult: fever of unknown origin He presents to hospital with weakness and fever He has bilateral ureteral stents and no bladder obstruction seen He has no nausea or vomiting He doesnt have COVID positivity He has acute renal failure Review of Systems Review of Systems: Yes Unobtainable due to mental condition Neurologic: Reports confusion Psychiatric: Psychiatric: Reports confusion [facility] Past Medical History Medical History Anemia Anemia in chronic kidney disease Ascites Cirrhosis Esophageal varices ESRD (end stage renal disease) on dialysis Essential hypertension Frailty GERD (gastroesophageal reflux disease) GI bleed Hyperlipidemia LDL goal <100 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 Type 2 diabetes mellitus with hyperglycemia Weakness Family History Family History Father Diabetes Mother Breast cancer Diabetes Cardiovascular disease Brother Diabetes Sister Diabetes Surgical History Surgical History History of liver biopsy Social History Social History Household Members: Family Housing: Apartment Alcohol intake: former Smoking Status: Former smoker Tobacco Type: Cigarette Packs Per Day: 2 Cigarettes Per Day: 40.0 Second Hand Smoke Exposure: No Advance Directives Date on File: 07/18/20 service: No Current occupational status: retired Meds Allergies Allergy/AdvReac Type Severity Reaction Status Date / Time No Known Allergies Allergy Verified 05/26/20 10:49 Active Medications: Current Medications Generic Name Dose Route Start Last Admin Trade Name Freq PRN Reason Stop Dose Admin Ascorbic Acid 500 mg 07/19/20 09:00 07/19/20 08:38 Ascorbic Acid 500 Mg Tablet PO 500 mg DAILY ROJAS Administration Atorvastatin Calcium 40 mg 07/18/20 21:00 07/19/20 21:45 Atorvastatin Calcium 40 Mg Tablet PO Not Given BEDTIME ROJAS Ferrous Sulfate 324 mg 07/19/20 09:00 07/19/20 08:51 Ferrous Sulfate 324 Mg Tablet.Dr PO Not Given DAILY ROJAS Dextrose/Sodium Chloride 1,000 mls @ 100 mls/hr 07/18/20 18:30 07/19/20 12:58 D51/2ns IVCONT 100 mls/hr .Q10H ROJAS Administration Ceftriaxone Sodium 1 gm/ 50 mls @ 100 mls/hr 07/19/20 07:00 07/19/20 09:05 Sodium Chloride IV Infused Q24H ROJAS Infusion Insulin Glargine 14 unit 07/19/20 09:00 07/19/20 08:49 Insulin Glargine,Hum.Rec.Anlog 100 Unit/Ml 10 Ml Vial SUBCUT Not Given DAILY [facility] Insulin Human Lispro 0 unit 07/18/20 16:30 07/19/20 21:45 Insulin Lispro 100 Unit/Ml 3 Ml Vial SUBCUT Not Given QIDACHS [facility] Protocol Midodrine 20 mg 07/19/20 08:00 07/19/20 18:04 Midodrine Hcl 10 Mg Tablet PO 20 mg TIDWM ROJAS Administration Mirtazapine 7.5 mg 07/18/20 21:00 07/19/20 21:45 Mirtazapine 7.5 Mg Tablet PO Not Given BEDTIME [facility] Non-Formulary Medication 25 mg 07/19/20 09:00 Empagliflozin [Jardiance] PO DAILY ROJAS Nystatin 1 appl 07/18/20 21:00 07/19/20 21:47 Nystatin Cream 15 Gm Tube TOPICAL 1 appl BID ROJAS Administration Protocol Omeprazole 40 mg 07/19/20 06:30 07/19/20 18:04 Omeprazole 40 Mg Capsule.Dr PO 40 mg BID@0630,1630 ROJAS Administration Ondansetron HCl 4 mg 07/18/20 18:17 Ondansetron Hcl 4 Mg/2 Ml Vial IVPUSH Q8H PRN Nausea and Vomiting Pharmacy Consult 1 each 07/18/20 09:22 Consult Rx Perform Med Rec MISCELLANE ONCE PRN Consult order Potassium Chloride 40 meq 07/19/20 15:00 07/19/20 21:46 Potassium Chloride Er 10 Meq Capsule.Er PO 07/20/20 09:01 Not Given TID ROJAS Sodium Bicarbonate 650 mg 07/18/20 21:00 07/19/20 21:46 Sodium Bicarbonate 650 Mg Tablet PO Not Given TID ROJAS Sodium Chloride 3 ml 07/18/20 18:17 07/19/20 21:47 0.9 % Sodium Chloride Flush 3 Ml Syringe IVFLUSH Not Given QSHIFT [facility] Sucralfate 1 gm 07/18/20 18:17 07/19/20 21:46 Sucralfate Oral Suspension 1 Gm/10 Ml Oral.Susp PO Not Given QIDACHS [facility] Tamsulosin HCl 0.4 mg 07/18/20 21:00 07/19/20 21:46 Tamsulosin Hcl 0.4 Mg Capsule PO Not Given BEDTIME [facility] Vitamin D 50 mcg 07/19/20 09:00 07/19/20 08:38 Cholecalciferol (Vitamin D3) 25 Mcg Tablet PO 50 mcg DAILY [facility] Administration Home Medications Medication Instructions Recorded Confirmed Last Taken Type ascorbic acid (vitamin C) 500 mg 500 mg PO DAILY 02/19/20 07/18/20 07/17/20 History tablet cholecalciferol (vitamin D3) 50 50 mcg PO DAILY 02/19/20 07/18/20 07/17/20 History mcg (2,000 unit) tablet ferrous sulfate 325 mg (65 mg 325 mg PO DAILY 02/19/20 07/18/20 07/17/20 History iron) tablet tamsulosin 0.4 mg capsule 0.4 mg PO BEDTIME 02/19/20 07/18/20 07/17/20 History atorvastatin 40 mg tablet 40 mg PO BEDTIME tab 03/25/20 07/18/20 07/17/20 History insulin aspart U-100 [Novolog 6 unit SUBCUT TID 06/30/20 07/18/20 07/17/20 History Flexpen U-100 Insulin] sucralfate 10 ml PO QIDACHS 06/30/20 07/18/20 07/17/20 History empagliflozin [Jardiance] 25 mg PO DAILY 07/18/20 07/18/20 07/17/20 History insulin glargine [Semglee Pen 14 unit SUBCUT QAM 07/18/20 07/18/20 07/17/20 History U-100 Insulin] mirtazapine 7.5 mg PO BEDTIME 07/18/20 07/18/20 07/17/20 History nystatin 1 appl TOPICAL BID 07/18/20 07/18/20 07/17/20 History omeprazole 40 mg PO BID 07/18/20 07/18/20 07/17/20 History ondansetron HCl [Zofran] 4 mg PO Q8H PRN 07/18/20 07/18/20 Unknown History Physical Exam Vital Signs: Vital Signs: Last Vital Signs Temp 98 F 07/19/20 19:56 Pulse 93 07/19/20 19:56 Resp 16 07/19/20 19:56 BP 96/59 L 07/19/20 19:56 Pulse Ox 98 07/19/20 19:56 Body Mass Index 21.9 Const: General: cooperative and confusion Orientation/consciousness: confusion HENMT: Head: Yes normal to inspection Eyes: General: appearance normal, both eyes and all related structures Resp: Effort & Inspection: normal respiratory effort Cardio: Rate: regular rate Rhythm: regular rhythm GI: Palpation (GI): nontender and Ascites present Percussion: Yes normal to percussion Skin: General skin exam: no rashes or lesions noted Neuro: General: confusion Results Labs CBC & Chem 7: 07/21/20 06:14 07/22/20 16:31 Labs: Short CBC 07/18/20 07/19/20 07/19/20 Range/Units 10:41 06:56 17:18 Creatinine 4.74 H* 5.16 H* 1.54 H (0.5-1.4) mg/dL BMP 07/19/20 07/19/20 06:56 17:18 Sodium 139 138 Potassium 2.7 L 3.1 L Chloride 106 101 Carbon Dioxide 17 L 25 BUN 21 H 6 L D Creatinine 5.16 H* 1.54 H Calcium 7.6 L D 9.1 D Microbiology Microbiology Results: Microbiology 07/18/20 10:54 Blood - Venous Blood Culture - Preliminary No growth after 24 hours. 07/18/20 10:41 Blood - Venous Blood Culture - Preliminary No growth after 24 hours. 07/18/20 Unknown Urine clean catch - Clean Catch Midstream Urine Culture - Preliminary Culture in progress. 07/18/20 13:34 Abdominal Fluid Gram Stain - Final 07/18/20 13:34 Abdominal Fluid Anaerobic Culture - Preliminary No growth to date. 07/18/20 13:34 Abdominal Fluid Body Fluid Culture - Preliminary No growth after 1 day Assessment and Plan (1) Fever: Status: Acute Continue Ceftriaxone Check HIV test Await cultures for now (2) Liver cirrhosis: Status: Acute
[2020-07-19 23:45] LABS: HIV AB/AG Nonreactive (Nonreactive); HIV Num 1 0.06 S/CO (0.00-0.99)
[2020-07-20] VITALS (14 sets, daily range): BP systolic 81–101; BP diastolic 45–56; PULSE 58–88; RESP 14–18; TEMP 36–36.8; O2SAT 94–99
--- NOTE | 2020-07-20 03:27 | PC.NURSE ---
Pt refused all pm meds aware
[2020-07-20] MEDS: cefTRIAXone sodium 1 GM in 0.9 % Sodium Chloride 50 ML IV (06:33)
[2020-07-20 08:19] LABS: Glucose, Whole Blood 132 mg/dL (60-115)
[2020-07-20 08:20] LABS: Anion Gap 19 (12-20); Blood Urea Nitrogen 9 mg/dL (9-16); Carbon Dioxide 20 mmol/L (22-29); Chloride 102 mmol/L (96-108); Creatinine Clr Calc Pharmacy 18.5; Estimated Glomerular Filt Rate 20; Glucose Random 139 mg/dL (60-115); Potassium 3.7 mmol/L (3.3-5.1); Sodium 137 mmol/L (135-145)
[2020-07-20 08:28] LABS: Calcium 8.4 mg/dL (8.4-10.2)
--- NOTE | 2020-07-20 08:58 | P.PNNP_ITS ---
Subjective Subjective Date of Service: 07/20/20 Interval history: Patient seen and examined had HD yesterday feels better Physical Exam Vital Signs: Vital Signs: Last Vital Signs Temp 97.3 F 07/20/20 07:35 Pulse 87 07/20/20 07:35 Resp 16 07/20/20 07:35 BP 90/53 L 07/20/20 07:35 Pulse Ox 98 07/20/20 07:35 Body Mass Index 21.9 Const: General: alert and awake HENMT: Head: Yes normocephalic and Yes atraumatic Neck: Neck: Yes supple Resp: Effort & Inspection: decreased respiratory effort Auscultation: diminished lung sounds Cardio: Heart sounds: S1 normal heart sound present and S2 normal heart sound present GI: Palpation (GI): nontender Percussion: Yes Fluid wave present Extrem: General: Yes edema Objective Data Labs CBC & Chem 7: 07/18/20 10:40 07/20/20 07:30 Labs: Laboratory Results - last 24 hr 07/19/20 07/19/20 07/19/20 11:12 17:18 18:03 Sodium 138 Potassium 3.1 L Chloride 101 Carbon Dioxide 25 Anion Gap 15 BUN 6 L D Creatinine 1.54 H Estim Creat Clear Calc 37.6 Estimated GFR 45 POC Glucose 168 H 94 Random Glucose 100 Calcium 9.1 D HIV 1&2 Ab/P24 Ag 4thGn 07/19/20 07/19/20 07/20/20 20:25 22:56 07:30 Sodium 137 Potassium 3.7 Chloride 102 Carbon Dioxide 20 L Anion Gap 19 BUN 9 Creatinine 3.12 H Estim Creat Clear Calc 18.5 Estimated GFR 20 POC Glucose 143 H Random Glucose 139 H D Calcium 8.4 D HIV 1&2 Ab/P24 Ag 4thGn Nonreactive 07/20/20 07:34 Sodium Potassium Chloride Carbon Dioxide Anion Gap BUN Creatinine Estim Creat Clear Calc Estimated GFR POC Glucose 132 H Random Glucose Calcium HIV 1&2 Ab/P24 Ag 4thGn Microbiology Microbiology Results: Microbiology 07/18/20 10:54 Blood - Venous Blood Culture - Preliminary No growth after 24 hours. 07/18/20 10:41 Blood - Venous Blood Culture - Preliminary No growth after 24 hours. 07/18/20 Unknown Urine clean catch - Clean Catch Midstream Urine Culture - Preliminary Culture in progress. 07/18/20 13:34 Abdominal Fluid Gram Stain - Final 07/18/20 13:34 Abdominal Fluid Anaerobic Culture - Preliminary No growth to date. 07/18/20 13:34 Abdominal Fluid Body Fluid Culture - Preliminary No growth after 1 day Assessment & Plan Assessment and plan (1) TREMAYNE (acute kidney injury): Status: Acute (2) Hypokalemia: Status: Acute (3) Fever: Status: Acute (4) Liver cirrhosis: Status: Acute Assessment and Plan: TREMAYNE HD dependent elevated WBC and Fever concerning for line infection blood culture negative so far hematuria but CT scan negative for hydronephrosis (ureteral stents in place) REC HD per schedule on ceftriaxone ID following follow blood culture renal diet epogen per protocol Time Spent With Patient Time: Total time spent is greater than 50% in coordination of care (as docu mented) at patient's floor/unit and/or counseling patient:
[2020-07-20] MEDS: Sucralfate Oral Suspension 1 GM/10 ML ORAL.SUSP PO ×3 (09:29→17:29)
[2020-07-20] MEDS: Ferrous Sulfate 324 MG TABLET.DR PO (09:30)
[2020-07-20] MEDS: Nystatin Cream 15 GM TUBE 1 APPL TOPICAL ×2 (09:30→20:59)
[2020-07-20] MEDS: Midodrine HCl 10 MG TABLET 20 MG PO ×3 (09:30→17:28)
[2020-07-20] MEDS: Cholecalciferol (Vitamin D3) 25 MCG TABLET 50 MCG PO (09:30)
[2020-07-20] MEDS: Sodium Bicarbonate 650 MG TABLET PO ×3 (09:30→21:23)
[2020-07-20] MEDS: 0.9 % Sodium Chloride Flush 3 ML SYRINGE IVFLUSH ×3 (09:31→22:26)
--- NOTE | 2020-07-20 10:07 | MHC.CM.PN ---
CM attempted to speak with Patient's Son/HCP/Gregory @ [phone], but reached first contact listed/Brother Rasta instead. 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 Patient came to [facility] from [facility] where he was receiving STR and hopes to return there at time of dc. CM has initiated and will follow for dc planning. IMM addressed with Rasta and original will be mailed certified letter to him and a copy will be placed on the chart. HCP & MOLST on file. PCP is Dr. Sony Munoz.Patient uses a w/c.Patient has had [facility] in the past and will have a [facility] beginning 07/24/2020.
[2020-07-20] MEDS: Dextrose 5 % and 0.45 % NaCl 1,000 ML 100 ML IVCONT (10:58)
[2020-07-20 11:49] LABS: Glucose, Whole Blood 167 mg/dL (60-115)
[2020-07-20] MEDS: Insulin Lispro 100 UNIT/ML 3 ML VIAL SUBCUT (11:51)
--- NOTE | 2020-07-20 13:46 | HO.PM.IMPN ---
Subjective Subjective Date of Service: 07/20/20 Physical Exam Vital Signs: Vital Signs: Last Vital Signs Temp 97.0 F 07/20/20 11:33 Pulse 85 07/20/20 11:51 Resp 15 07/20/20 11:33 BP 93/55 L 07/20/20 11:51 Pulse Ox 98 07/20/20 11:33 Body Mass Index 21.9 Gen: chronically ill-appearing HEENT: sclera anicteric, moist mucus membranes Neck: supple, R subclavian dialysis catheter without erythema or purulence Lungs: clear to auscultation bilaterally Heart: regular rate and rhythm, no murmurs Abd: distended with fluid wave : Ch with gross hematuria Ext: 1+ bilateral pedal edema Skin: warm/well-perfused Neuro: no asterixis noted Psych: appropriate affect Objective Data Current Medications Generic Name Dose Route Start Last Admin Trade Name Freq PRN Reason Stop Dose Admin Ascorbic Acid 500 mg 07/19/20 09:00 07/20/20 09:37 Ascorbic Acid 500 Mg Tablet PO Not Given DAILY ROJAS Atorvastatin Calcium 40 mg 07/18/20 21:00 07/19/20 21:45 Atorvastatin Calcium 40 Mg Tablet PO Not Given BEDTIME ROJAS Ferrous Sulfate 324 mg 07/19/20 09:00 07/20/20 09:30 Ferrous Sulfate 324 Mg Tablet. PO 324 mg DAILY ROJAS Administration Dextrose/Sodium Chloride 1,000 mls @ 100 mls/hr 07/18/20 18:30 07/20/20 10:58 D51/2ns IVCONT 100 mls/hr .Q10H ROJAS Administration Ceftriaxone Sodium 1 gm/ 50 mls @ 100 mls/hr 07/19/20 07:00 07/20/20 07:24 Sodium Chloride IV Infused Q24H ROJAS Infusion Insulin Human Lispro 0 unit 07/18/20 16:30 07/20/20 11:51 Insulin Lispro 100 Unit/Ml 3 Ml Vial SUBCUT 2 unit QIDACHS ROJAS Administration Protocol Midodrine 20 mg 07/19/20 08:00 07/20/20 11:51 Midodrine Hcl 10 Mg Tablet PO 20 mg TIDWM ROJAS Administration Mirtazapine 7.5 mg 07/18/20 21:00 07/19/20 21:45 Mirtazapine 7.5 Mg Tablet PO Not Given BEDTIME ROJAS Nystatin 1 appl 07/18/20 21:00 07/20/20 09:30 Nystatin Cream 15 Gm Tube TOPICAL 1 appl BID [facility] Administration Protocol Omeprazole 40 mg 07/19/20 06:30 07/20/20 07:49 Omeprazole 40 Mg Capsule.Dr PO Not Given BID@0630,8860 [facility] Ondansetron HCl 4 mg 07/18/20 18:17 Ondansetron Hcl 4 Mg/2 Ml Vial IVPUSH Q8H PRN Nausea and Vomiting Pharmacy Consult 1 each 07/18/20 09:22 Consult Rx Perform Med Rec MISCELLANE ONCE PRN Consult order Sodium Bicarbonate 650 mg 07/18/20 21:00 07/20/20 09:30 Sodium Bicarbonate 650 Mg Tablet PO 650 mg TID [facility] Administration Sodium Chloride 3 ml 07/18/20 18:17 07/20/20 09:31 0.9 % Sodium Chloride Flush 3 Ml Syringe IVFLUSH 3 ml QSHIFT [facility] Administration Sucralfate 1 gm 07/18/20 18:17 07/20/20 11:51 Sucralfate Oral Suspension 1 Gm/10 Ml Oral.Susp PO 1 gm QIDACHS [facility] Administration Tamsulosin HCl 0.4 mg 07/18/20 21:00 07/19/20 21:46 Tamsulosin Hcl 0.4 Mg Capsule PO Not Given BEDTIME [facility] Vitamin D 50 mcg 07/19/20 09:00 07/20/20 09:30 Cholecalciferol (Vitamin D3) 25 Mcg Tablet PO 50 mcg DAILY ROJAS Administration Labs CBC & Chem 7: 07/18/20 10:40 07/20/20 07:30 Microbiology Microbiology Results: Microbiology 07/18/20 10:54 Blood - Venous Blood Culture - Preliminary No growth after 48 hours. 07/18/20 10:41 Blood - Venous Blood Culture - Preliminary No growth after 48 hours. 07/18/20 Unknown Urine clean catch - Clean Catch Midstream Urine Culture - Preliminary Yeast 07/18/20 13:34 Abdominal Fluid Gram Stain - Final 07/18/20 13:34 Abdominal Fluid Anaerobic Culture - Preliminary No growth to date. 07/18/20 13:34 Abdominal Fluid Body Fluid Culture - Final No growth after 2 days Assessment and Plan (1) Adult failure to thrive: Status: Acute (2) Fever: Status: Acute (3) Anemia in chronic kidney disease: Status: Acute (4) ESRD (end stage renal disease) on dialysis: Status: Acute (5) Type 2 diabetes mellitus with diabetic nephropathy: Status: Acute Assessment and Plan: hospital d#3 70yo M with cirrhosis with ascites, DM2, anemia, severe malnutrition recent admission 06/30-07/14/20 for anuric TREMAYNE with AGMA/NAGMA progressing to HD dependence 07/03/20 with hepatorenal syndrome, obstructive uropathy without hydronephrosis s/p bilateral ureteral stents re-admitted from SNF due to lethargy, decreased PO, FTT, gross hematuria in Ch, abdominal discomfort, fever # fever, ?source - no evidence of SBP - BCx negative to date - UCx growing only yeast so far- colonizer? - ?line infection- will send BCx from dialysis catheter [not done yet] - on empiric ceftriaxone d#3, ID following # hematuria - Urology consult # TREMAYNE->ESRD/HD dependence - continue HD as per Nephrology - continue midodrine, sodium bicarbonate # obstructive uropathy - continue tamsulosin - Ch in place # anemia of chronic disease - Hb stable # cirrhosis - no evidence of SBP # hypoK - repleted # DM2 - correction-dose lispro; glargine d/c'ed due to hypoglycemia # FTT/moderate protein-calorie malnutrition - Ensure, treat medical issues as above # VTE ppx - SCDs
--- NOTE | 2020-07-20 15:38 | PC.NURSE ---
Addendum entered by Silver Correa RN 07/20/20 19:51: Per Dr. Hayward, Dr. Langford made aware of situation via [place] Text. Original Note: Patient with liu catheter in place draining minimal brownish red urine, patient bladder scanned with result of 832 mL, attempted to irrigate liu and unable to draw back. Discussed with another nurse and that nurse attempted and unable to draw back and nurse then attempted to insert new liu catheter unsuccessfuly. Dr. Hayward made aware, NNO at this time.
[2020-07-20 16:38] LABS: Glucose, Whole Blood 60 mg/dL (60-115)
[2020-07-20 17:11] LABS: Glucose, Whole Blood 66 mg/dL (60-115)
[2020-07-20] MEDS: Albumin Human 25 % 50 ML 100 ML IV (17:21)
[2020-07-20] MEDS: Omeprazole 40 MG CAPSULE.DR PO (17:29)
[2020-07-20 18:05] LABS: Glucose, Whole Blood 88 mg/dL (60-115)
[2020-07-20] MEDS: Albumin Human 25 % 100 ML IV (19:18)
--- NOTE | 2020-07-20 19:46 | PC.NURSE ---
Pt blood pressure 87/53 @ 1534, Dr. Hayward made aware, new order for 50mL albumin IV infusion with repeat BP check following infusion. Blood pressure checked following infusion at 1825 with result of 84/50, Dr. Hayward made aware via [place] text, new order for 100 mL albumin IV infusion. 100 mL of albumin started at 1918. Oncoming nurse made aware of situation.
[2020-07-20 20:41] LABS: Glucose, Whole Blood 78 mg/dL (60-115)
[2020-07-20] MEDS: Lactated Ringers 500 ML 1000 ML IVCONT (20:43)
[2020-07-20] MEDS: Midodrine HCl 10 MG TABLET PO (20:49)
[2020-07-20] MEDS: Mirtazapine 7.5 MG TABLET PO (20:53)
[2020-07-20] MEDS: Tamsulosin HCL 0.4 MG CAPSULE PO (20:54)
[2020-07-20] MEDS: Atorvastatin Calcium 40 MG TABLET PO (20:55)
[2020-07-20 21:02] LABS: Basophils Absolute Auto 0.1 X10*3/uL (0.0-0.2); Basophils Percent Auto 0.5 % (0-2); Eosinophils Absolute Auto 0.3 X10*3/uL (0.0-0.4); Eosinophils Percent Auto 2.6 % (0-4); PLT CLUMP 1; Red Blood Count 2.67 X10*6/uL (4.60-5.80); SCAN SMEAR FLAG 1
[2020-07-20 21:04] LABS: Hematocrit 23.9 % (42-52); Hemoglobin 7.7 g/dl (14.0-18.0); Imm Gran Abs Auto 0.04 X10*3/uL (0.00-0.03); Imm Gran Pct Auto 0.4 % (0.0-0.4); Lymphocytes Absolute Auto 1.1 X10*3/uL (1.2-4.9); Mean Corpuscular HGB Conc 32.2 g/dl (31.0-36.0); Mean Corpuscular Hemoglobin 28.8 pg (27.0-33.0); Mean Corpuscular Volume 89.5 fL (80-98); Monocytes Absolute Auto 0.8 X10*3/uL (0.1-1.2); Monocytes Percent Auto 7.7 % (2-11); Neutrophils Absolute Auto 7.7 X10*3/uL (2.0-8.3); Neutrophils Percent Auto 77.8 % (45-73); Platelet Count 117 X10*3/uL (160-400); Red Cell Distribution Width 21.8 % (11.0-16.0)
[2020-07-20 21:05] LABS: MANUAL DIFF FLAG NO
[2020-07-20 21:40] LABS: Lactic Acid 3.9 mmol/L (0.5-2.0)
[2020-07-20 22:58] LABS: Reflex Lactate? Lactic Acid Added
[2020-07-21] VITALS (10 sets, daily range): BP systolic 86–102; BP diastolic 36–56; PULSE 83–98; RESP 16–19; TEMP 36.4–36.7; O2SAT 94–97
[2020-07-21 00:07] LABS: ~Lactic Acid-LAB USE ONLY 2.7 mmol/L (0.5-2.0)
[2020-07-21 01:44] LABS: Reflex Lactate? 2 Y
[2020-07-21 02:22] LABS: ~Lactic Acid-LAB USE ONLY 2.1 mmol/L (0.5-2.0)
[2020-07-21] MEDS: Omeprazole 40 MG CAPSULE.DR PO (06:01)
[2020-07-21] MEDS: cefTRIAXone sodium 1 GM in 0.9 % Sodium Chloride 50 ML IV (06:14)
[2020-07-21 06:39] LABS: Basophils Absolute Auto 0.1 X10*3/uL (0.0-0.2); Basophils Percent Auto 0.8 % (0-2); MANUAL DIFF FLAG SCAN; PLT CLUMP 1; SCAN SMEAR FLAG 1
[2020-07-21 06:41] LABS: Eosinophils Absolute Auto 0.3 X10*3/uL (0.0-0.4); Eosinophils Percent Auto 2.9 % (0-4); Hemoglobin 8.8 g/dl (14.0-18.0); Imm Gran Abs Auto 0.05 X10*3/uL (0.00-0.03); Imm Gran Pct Auto 0.5 % (0.0-0.4); Lymphocytes Absolute Auto 0.7 X10*3/uL (1.2-4.9); Lymphocytes Percent Auto 6.9 % (20-40); Mean Corpuscular HGB Conc 33.8 g/dl (31.0-36.0); Mean Corpuscular Hemoglobin 29.7 pg (27.0-33.0); Mean Corpuscular Volume 87.8 fL (80-98); Mean Platelet Volume 11.1 fL (9.4-12.4); Monocytes Absolute Auto 0.5 X10*3/uL (0.1-1.2); Monocytes Percent Auto 4.8 % (2-11); Neutrophils Absolute Auto 8.3 X10*3/uL (2.0-8.3); Neutrophils Percent Auto 84.1 % (45-73); Platelet Count 121 X10*3/uL (160-400); Red Blood Count 2.96 X10*6/uL (4.60-5.80); Red Cell Distribution Width 21.7 % (11.0-16.0); White Blood Count 9.9 X10*3/uL (4.8-10.8)
[2020-07-21 06:47] LABS: INTERNATIONAL NORM RATIO 1.2 (0.9-1.1); Prothrombin Time 14.6 SEC (10.8-13.0)
[2020-07-21 07:47] LABS: Alanine Aminotransferase 16 U/L (0-40); Albumin Level 3.1 g/dL (3.5-5.0); Alkaline Phosphatase 595 U/L (39-117); Anion Gap 18 (12-20); Aspartate Amino Transferase 87 U/L (5-37); Bilirubin Total 1.5 mg/dL (0.0-1.0); Blood Urea Nitrogen 12 mg/dL (9-16); Calcium 8.4 mg/dL (8.4-10.2); Carbon Dioxide 18 mmol/L (22-29); Chloride 103 mmol/L (96-108); Estimated Glomerular Filt Rate 14; Glucose Random 105 mg/dL (60-115); Magnesium 1.9 mg/dL (1.6-2.6); Potassium 3.1 mmol/L (3.3-5.1); Sodium 136 mmol/L (135-145); Total Protein 6.6 g/dL (6.5-8.0)
[2020-07-21 07:53] LABS: SLIDE REVIEW VERIFIED
[2020-07-21 08:14] LABS: Glucose, Whole Blood 113 mg/dL (60-115)
[2020-07-21] MEDS: 0.9 % Sodium Chloride Flush 3 ML SYRINGE IVFLUSH ×2 (08:17→17:30)
[2020-07-21] MEDS: Ferrous Sulfate 324 MG TABLET.DR PO (08:17)
[2020-07-21] MEDS: Sodium Bicarbonate 650 MG TABLET PO ×2 (08:17→20:36)
[2020-07-21] MEDS: Ascorbic Acid 500 MG TABLET PO (08:17)
[2020-07-21] MEDS: Sucralfate Oral Suspension 1 GM/10 ML ORAL.SUSP PO ×2 (08:17→20:37)
[2020-07-21] MEDS: Midodrine HCl 10 MG TABLET 20 MG PO ×2 (08:17→13:04)
[2020-07-21] MEDS: Cholecalciferol (Vitamin D3) 25 MCG TABLET 50 MCG PO (08:17)
[2020-07-21] MEDS: Nystatin Cream 15 GM TUBE 1 APPL TOPICAL ×2 (08:18→20:37)
[2020-07-21 11:18] LABS: Glucose, Whole Blood 94 mg/dL (60-115)
[2020-07-21] MEDS: ondansetron HCL 4 MG/2 ML VIAL IVPUSH (11:34)
--- NOTE | 2020-07-21 11:51 | PC.NURSE ---
Patient with episode of vomiting, Dr. Neely made aware. Medicated with Zofran per order.
--- NOTE | 2020-07-21 12:17 | MHC.CM.PN ---
Addendum entered by Keiko Gordon 07/21/20 13:03: PER HOSPITLAIST PATIENT WILL NOT BE DISCHARGED TODAY RENAL /HOSPITALISTS TO TALK WITH PATIENT /FAMILY REGARDING PLAN OF CARE MEETING WITH QUESTIONING OF STOPPING HEMO DIALYSIS . UPDATED LIASON AT [facility] ABOUT THIS. 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 patient will be discharged today . clinical sent to [facility] where it is anticipated he wilL go back TO. DISCHARGE PLAN RETURN BACK TO [facility] FOR SHORT TERM REHAB CONTINUATION OF HIS THERAPY TO BE TRANSPORTED VIA [facility] 06/22/20
--- NOTE | 2020-07-21 12:39 | HO.PM.IMPN ---
Subjective Subjective Date of Service: 07/21/20 Interval History: f/u adult failure to thive, no well with n/v and looks very frail, frequent diarrhea Review of Systems Gen: no fever Resp: no sob, no cough CV: no chest, no SHELBY, no leg edema GI: No n/v, + abd pain Neuro: No confusion Physical Exam Vital Signs: Vital Signs: Last Vital Signs Temp 97.5 F 07/21/20 11:53 Pulse 83 07/21/20 11:53 Resp 16 07/21/20 11:53 BP 98/41 L 07/21/20 11:53 Pulse Ox 95 07/21/20 11:53 Body Mass Index 21.9 Objective Data Current Medications Generic Name Dose Route Start Last Admin Trade Name Shhazadq PRN Reason Stop Dose Admin Ascorbic Acid 500 mg 07/19/20 09:00 07/21/20 08:17 Ascorbic Acid 500 Mg Tablet PO 500 mg DAILY ROJAS Administration Atorvastatin Calcium 40 mg 07/18/20 21:00 07/20/20 20:55 Atorvastatin Calcium 40 Mg Tablet PO 40 mg BEDTIME ROJAS Administration Ferrous Sulfate 324 mg 07/19/20 09:00 07/21/20 08:17 Ferrous Sulfate 324 Mg Tablet. PO 324 mg DAILY ROJAS Administration Ceftriaxone Sodium 1 gm/ 50 mls @ 100 mls/hr 07/19/20 07:00 07/21/20 06:56 Sodium Chloride IV Infused Q24H ROJAS Infusion Insulin Human Lispro 0 unit 07/18/20 16:30 07/21/20 11:52 Insulin Lispro 100 Unit/Ml 3 Ml Vial SUBCUT Not Given QIDACHS [facility] Protocol Midodrine 20 mg 07/19/20 08:00 07/21/20 08:17 Midodrine Hcl 10 Mg Tablet PO 20 mg TIDWM ROJAS Administration Mirtazapine 7.5 mg 07/18/20 21:00 07/20/20 20:53 Mirtazapine 7.5 Mg Tablet PO 7.5 mg BEDTIME ROJAS Administration Nystatin 1 appl 07/18/20 21:00 07/21/20 08:18 Nystatin Cream 15 Gm Tube TOPICAL 1 appl BID ROJAS Administration Protocol Omeprazole 40 mg 07/19/20 06:30 07/21/20 06:01 Omeprazole 40 Mg Capsule. PO 40 mg BID@0630,8850 ROJAS Administration Ondansetron HCl 4 mg 07/18/20 18:17 07/21/20 11:34 Ondansetron Hcl 4 Mg/2 Ml Vial IVPUSH 4 mg Q8H PRN Administration Nausea and Vomiting Pharmacy Consult 1 each 07/18/20 09:22 Consult Rx Perform Med Rec MISCELLANE ONCE PRN Consult order Sodium Bicarbonate 650 mg 07/18/20 21:00 07/21/20 08:17 Sodium Bicarbonate 650 Mg Tablet PO 650 mg TID ROJAS Administration Sodium Chloride 3 ml 07/18/20 18:17 07/21/20 08:17 0.9 % Sodium Chloride Flush 3 Ml Syringe IVFLUSH 3 ml QSHIFT ROJAS Administration Sucralfate 1 gm 07/18/20 18:17 07/21/20 08:17 Sucralfate Oral Suspension 1 Gm/10 Ml Oral.Susp PO 1 gm QIDACHS ROJAS Administration Tamsulosin HCl 0.4 mg 07/18/20 21:00 07/20/20 20:54 Tamsulosin Hcl 0.4 Mg Capsule PO 0.4 mg BEDTIME ROJAS Administration Vitamin D 50 mcg 07/19/20 09:00 07/21/20 08:17 Cholecalciferol (Vitamin D3) 25 Mcg Tablet PO 50 mcg DAILY ROJAS Administration Labs CBC & Chem 7: 07/21/20 06:14 07/21/20 06:14 Microbiology Microbiology Results: Microbiology 07/18/20 13:34 Abdominal Fluid Gram Stain - Final 07/18/20 13:34 Abdominal Fluid Anaerobic Culture - Preliminary No growth to date. 07/18/20 13:34 Abdominal Fluid Body Fluid Culture - Final No growth after 2 days 07/18/20 Unknown Urine clean catch - Clean Catch Midstream Urine Culture - Final Nevaeh albicans 07/18/20 10:54 Blood - Venous Blood Culture - Preliminary No growth after 48 hours. 07/18/20 10:41 Blood - Venous Blood Culture - Preliminary No growth after 48 hours. Assessment and Plan (1) Adult failure to thrive: Status: Acute (2) Fever: Status: Acute (3) Anemia in chronic kidney disease: Status: Acute (4) ESRD (end stage renal disease) on dialysis: Status: Acute (5) Type 2 diabetes mellitus with diabetic nephropathy: Status: Acute Assessment and Plan: hospital d#3 70yo M with cirrhosis with ascites, DM2, anemia, severe malnutrition recent admission 06/30-07/14/20 for anuric TREMAYNE with AGMA/NAGMA progressing to HD dependence 07/03/20 with hepatorenal syndrome, obstructive uropathy without hydronephrosis s/p bilateral ureteral stents re-admitted from SNF due to lethargy, decreased PO, FTT, gross hematuria in Ch, abdominal discomfort, fever # fever, ?source - no evidence of SBP - BCx negative to date - UCx growing only yeast so far- colonizer? - ?line infection- will send BCx from dialysis catheter [not done yet] - on empiric ceftriaxone d#3, ID following # hematuria - Urology consult # TREMAYNE->ESRD/HD dependence - continue HD as per Nephrology - continue midodrine, sodium bicarbonate # obstructive uropathy - continue tamsulosin - Ch in place # anemia of chronic disease - Hb stable # cirrhosis - no evidence of SBP # hypoK - repleted # DM2 - correction-dose lispro; glargine d/c'ed due to hypoglycemia # FTT/moderate protein-calorie malnutrition - Ensure, treat medical issues as above Overall not doing well and will talk to him and family regarding hospice # VTE ppx - SCDs
--- NOTE | 2020-07-21 14:37 | CONS_ITS ---
DATE OF SERVICE: 07/19/2020 HISTORY OF PRESENT ILLNESS: I was asked to assist in management of this 70-year-old patient, who was recently started on hemodialysis, who presents to the hospital with failure to thrive. Patient recently had a hospitalization until the of this month, during which he was on dialysis due to anuric acute kidney injury. He was discharged on the to a half-way, presented with increased weakness, decreased oral intake, failure to thrive, blood in Ch catheter, diarrhea, and abdominal discomfort. The patient was also started on IV antibiotics due to the suspicion of a line infection. PAST MEDICAL HISTORY: Remarkable for acute kidney injury, hemodialysis dependent, chronic kidney disease, liver cirrhosis, anemia, esophageal varices, GERD, diabetes mellitus, hypertension, history of GI bleed. MEDICATIONS: Medications as inpatient and outpatient were reviewed . SOCIAL HISTORY: He smoked cigarette in the past. FAMILY HISTORY: Negative for kidney disease. REVIEW OF SYSTEMS: 10-point review of systems is negative except pertinent in the history of present illness. PHYSICAL EXAMINATION: VITAL SIGNS: Blood pressure is 96/52, heart rate 89, respiratory rate 20, temperature 98. CONSTITUTIONAL: Looks his age. No acute distress. NEUROLOGIC: He is lethargic. HEAD: Atraumatic, normocephalic. NECK: Supple. LUNGS: Decreased breath sounds. CARDIOVASCULAR: S1, S2. No rub. ABDOMEN: Distended. EXTREMITIES: With peripheral edema. LABORATORY DATA: Labs showed a white count 11.4, hemoglobin is 8.1, platelet count 197. Sodium 139, potassium 2.7, chloride 106, CO2 is 17, BUN 21, creatinine 5.16. ASSESSMENT: 1. Acute kidney injury, hemodialysis dependent. 2. Fever. 3. Anemia. This is a patient with a history of acute kidney injury, recently started on hemodialysis in the setting of acute kidney injury, presented to the hospital with failure to thrive, elevated temperature, suspicious for line infection. Does have hematuria and a CT scan did show evidence for bilateral ureteral stent without evidence for hydronephrosis. RECOMMENDATION: Recommendation would be to follow closely his blood culture and would have a low threshold to discontinue his dialysis down the line. We will continue on IV antibiotics. We will arrange also for his dialysis today. Thank you for allowing me to participate in the care of this patient. Belen Simmons MD GF/MODL / [phone]
--- NOTE | 2020-07-21 15:52 | PC.NURSE ---
Pt with further episode of vomiting at 1330, Dr. Fajardo made aware, NNO. Patients blood pressure rechecked manually with result of /, Dr. Fajardo made aware, NNO.
--- NOTE | 2020-07-21 16:11 | PC.NURSE ---
Patient refused due medications. Dr. Fajardo made aware. Will follow up with patient and attempt again.
--- NOTE | 2020-07-21 16:33 | PC.NURSE ---
Attempted to procure air loss bed pump for patient. No pumps available
[2020-07-21 16:36] LABS: Glucose, Whole Blood 117 mg/dL (60-115)
--- NOTE | 2020-07-21 17:19 | PM.PNNEP ---
Subjective Subjective Date of Service: 07/21/20 Interval history: Seen AM. Events noted. All recent data reviewed Physical Exam Vital Signs: Vital Signs: Last Vital Signs Temp 97.7 F 07/21/20 15:44 Pulse 97 07/21/20 16:23 Resp 18 07/21/20 15:44 BP 87/53 L 07/21/20 16:23 Pulse Ox 94 07/21/20 15:44 Body Mass Index 21.9 Const: General: No acute distress Neck: Neck: Yes supple Resp: Auscultation: diminished lung sounds Cardio: Rate: regular rate GI: Other: Ascites + Neuro: General: moves all extremities Objective Data Labs CBC & Chem 7: 07/21/20 06:14 07/21/20 06:14 Labs: Laboratory Results - last 24 hr 07/20/20 07/20/20 07/20/20 18:00 20:36 20:50 WBC 10.0 RBC 2.67 L Hgb 7.7 L Hct 23.9 L MCV 89.5 MCH 28.8 MCHC 32.2 RDW 21.8 H Plt Count 117 L D MPV 9.0 L Immature Gran % (Auto) 0.4 Neut % (Auto) 77.8 H Lymph % (Auto) 11.0 L Jefferson % (Auto) 7.7 Eos % (Auto) 2.6 Baso % (Auto) 0.5 Lymph # (Auto) 1.1 L Jefferson # (Auto) 0.8 Eos # (Auto) 0.3 Baso # (Auto) 0.1 Abs Immat Gran (auto) 0.04 H Absolute Neuts (auto) 7.7 Absolute Nucleated RBC 0.000 Nucleated RBC % (auto) 0.0 Smear Tech's Comments PT INR Sodium Potassium Chloride Carbon Dioxide Anion Gap BUN Creatinine Estim Creat Clear Calc Estimated GFR POC Glucose 88 78 Random Glucose Lactic Acid Lactic Acid Fup @ 2Hr Lactic Acid Fup @ 4Hr Calcium Magnesium Total Bilirubin AST ALT Alkaline Phosphatase Total Protein Albumin 07/20/20 07/20/20 07/21/20 20:50 23:23 01:51 WBC RBC Hgb Hct MCV MCH MCHC RDW Plt Count MPV Immature Gran % (Auto) Neut % (Auto) Lymph % (Auto) Jefferson % (Auto) Eos % (Auto) Baso % (Auto) Lymph # (Auto) Jefferson # (Auto) Eos # (Auto) Baso # (Auto) Abs Immat Gran (auto) Absolute Neuts (auto) Absolute Nucleated RBC Nucleated RBC % (auto) Smear Tech's Comments PT INR Sodium Potassium Chloride Carbon Dioxide Anion Gap BUN Creatinine Estim Creat Clear Calc Estimated GFR POC Glucose Random Glucose Lactic Acid 3.9 H* Lactic Acid Fup @ 2Hr 2.7 H* Lactic Acid Fup @ 4Hr 2.1 H* Calcium Magnesium Total Bilirubin AST ALT Alkaline Phosphatase Total Protein Albumin 07/21/20 07/21/20 07/21/20 06:14 06:14 06:14 WBC 9.9 RBC 2.96 L Hgb 8.8 L Hct 26.0 L MCV 87.8 MCH 29.7 MCHC 33.8 RDW 21.7 H Plt Count 121 L MPV 11.1 Immature Gran % (Auto) 0.5 H Neut % (Auto) 84.1 H Lymph % (Auto) 6.9 L Jefferson % (Auto) 4.8 Eos % (Auto) 2.9 Baso % (Auto) 0.8 Lymph # (Auto) 0.7 L Jefferson # (Auto) 0.5 Eos # (Auto) 0.3 Baso # (Auto) 0.1 Abs Immat Gran (auto) 0.05 H Absolute Neuts (auto) 8.3 Absolute Nucleated RBC 0.000 Nucleated RBC % (auto) 0.0 Smear Tech's Comments VERIFIED PT 14.6 H INR 1.2 H Sodium 136 Potassium 3.1 L Chloride 103 Carbon Dioxide 18 L Anion Gap 18 BUN 12 Creatinine 4.14 H* Estim Creat Clear Calc 14.0 Estimated GFR 14 POC Glucose Random Glucose 105 Lactic Acid Lactic Acid Fup @ 2Hr Lactic Acid Fup @ 4Hr Calcium 8.4 Magnesium 1.9 Total Bilirubin 1.5 H AST 87 H ALT 16 Alkaline Phosphatase 595 H Total Protein 6.6 Albumin 3.1 L 07/21/20 07/21/20 07/21/20 07:23 11:11 16:26 WBC RBC Hgb Hct MCV MCH MCHC RDW Plt Count MPV Immature Gran % (Auto) Neut % (Auto) Lymph % (Auto) Jefferson % (Auto) Eos % (Auto) Baso % (Auto) Lymph # (Auto) Jefferson # (Auto) Eos # (Auto) Baso # (Auto) Abs Immat Gran (auto) Absolute Neuts (auto) Absolute Nucleated RBC Nucleated RBC % (auto) Smear Tech's Comments PT INR Sodium Potassium Chloride Carbon Dioxide Anion Gap BUN Creatinine Estim Creat Clear Calc Estimated GFR POC Glucose 113 94 117 H Random Glucose Lactic Acid Lactic Acid Fup @ 2Hr Lactic Acid Fup @ 4Hr Calcium Magnesium Total Bilirubin AST ALT Alkaline Phosphatase Total Protein Albumin Microbiology Microbiology Results: Microbiology 07/20/20 14:44 Blood - Central Line Blood Culture - Preliminary No growth after 24 hours. 07/20/20 14:33 Blood - Central Line Blood Culture - Preliminary No growth after 24 hours. 07/18/20 13:34 Abdominal Fluid Gram Stain - Final 07/18/20 13:34 Abdominal Fluid Anaerobic Culture - Preliminary No growth to date. 07/18/20 13:34 Abdominal Fluid Body Fluid Culture - Final No growth after 2 days 07/18/20 Unknown Urine clean catch - Clean Catch Midstream Urine Culture - Final Envaeh albicans 07/18/20 10:54 Blood - Venous Blood Culture - Preliminary No growth after 48 hours. 07/18/20 10:41 Blood - Venous Blood Culture - Preliminary No growth after 48 hours. Assessment & Plan Assessment and plan (1) TREMAYNE (acute kidney injury): Problem details: 70-year-old male past medical history as above including cirrhosis which appears relatively compensated ,complaining of diarrhea as well as poor oral intake found to have severe ANURIC TREMAYNE and metabolic acidosis now HD dependent Anuric Acute 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: s/p HD started 07/03 Seen AM. Due HD tomorrow continue HD support and tap ascites as needed (outpt HD spot at [place] unit TTS 1) Shall follow up Status: Acute Time Spent With Patient Time: Total time spent is greater than 50% in coordination of care (as documented) at patient's floor/unit and/or counseling patient:
[2020-07-21 20:20] LABS: Glucose, Whole Blood 87 mg/dL (60-115)
[2020-07-21] MEDS: Mirtazapine 7.5 MG TABLET PO (20:36)
[2020-07-21] MEDS: 0.9 % Sodium Chloride 1,000 ML 50 ML IVCONT (20:36)
[2020-07-21] MEDS: Atorvastatin Calcium 40 MG TABLET PO (20:37)
[2020-07-21] MEDS: Tamsulosin HCL 0.4 MG CAPSULE PO (20:37)
[2020-07-22] VITALS (8 sets, daily range): BP systolic 79–98; BP diastolic 50–64; PULSE 86–108; RESP 16–18; TEMP 36–36.5; O2SAT 95–98; BMI 21.9
[2020-07-22] MEDS: cefTRIAXone sodium 1 GM in 0.9 % Sodium Chloride 50 ML IV (06:21)
[2020-07-22] MEDS: Omeprazole 40 MG CAPSULE.DR PO ×2 (06:21→16:06)
[2020-07-22 07:41] LABS: Glucose, Whole Blood 85 mg/dL (60-115)
[2020-07-22] MEDS: Midodrine HCl 10 MG TABLET 20 MG PO ×3 (09:20→17:52)
--- NOTE | 2020-07-22 09:36 | PM.PNNEP ---
Subjective Subjective Date of Service: 07/22/20 Interval history: Seen on HD AM. Events noted. All recent data reviewed. D/W HD RN/Hospitalist Physical Exam Vital Signs: Vital Signs: Last Vital Signs Temp 96.9 F 07/22/20 04:00 Pulse 108 H 07/22/20 09:20 Resp 18 07/22/20 04:00 BP 86/53 L 07/22/20 09:20 Pulse Ox 97 07/22/20 04:00 Body Mass Index 21.9 Const: Other: Cachectic General: No no acute distress Neck: Neck: Yes supple Resp: Auscultation: diminished lung sounds Cardio: Heart sounds: no rubs GI: Other: Ascites + Palpation (GI): Soft to palpation Neuro: General: moves all extremities Objective Data Labs CBC & Chem 7: 07/21/20 06:14 07/21/20 06:14 Labs: Laboratory Results - last 24 hr 07/21/20 07/21/20 07/21/20 11:11 16:26 20:07 POC Glucose 94 117 H 87 07/22/20 07:33 POC Glucose 85 Microbiology Microbiology Results: Microbiology 07/18/20 13:34 Abdominal Fluid Gram Stain - Final 07/18/20 13:34 Abdominal Fluid Anaerobic Culture - Preliminary No growth to date. 07/18/20 13:34 Abdominal Fluid Body Fluid Culture - Final No growth after 2 days 07/20/20 14:44 Blood - Central Line Blood Culture - Preliminary No growth after 24 hours. 07/20/20 14:33 Blood - Central Line Blood Culture - Preliminary No growth after 24 hours. 07/18/20 Unknown Urine clean catch - Clean Catch Midstream Urine Culture - Final Nevaeh albicans 07/18/20 10:54 Blood - Venous Blood Culture - Preliminary No growth after 48 hours. 07/18/20 10:41 Blood - Venous Blood Culture - Preliminary No growth after 48 hours. Assessment & Plan Assessment and plan (1) TREMAYNE (acute kidney injury): Problem details: 70-year-old male past medical history as above including cirrhosis which appears relatively compensated ,complaining of diarrhea as well as poor oral intake found to have severe ANURIC TREMAYNE and metabolic acidosis now HD dependent Anuric Acute 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: s/p HD started 07/03 Seen on HD; Increase Midodrine to 20 mg tid continue HD support and tap ascites as needed (outpt HD spot at [place] unit TTS 1) Shall follow up ? Palliative care Status: Acute Time Spent With Patient Time: Total time spent is greater than 50% in coordination of care (as documented) at patient's floor/unit and/or counseling patient:
[2020-07-22] MEDS: Albumin Human 25 % 100 ML IV ×2 (11:27→12:53)
[2020-07-22] MEDS: Cholecalciferol (Vitamin D3) 25 MCG TABLET 50 MCG PO (11:28)
[2020-07-22] MEDS: Ascorbic Acid 500 MG TABLET PO (11:28)
[2020-07-22] MEDS: Ferrous Sulfate 324 MG TABLET.DR PO (11:28)
[2020-07-22] MEDS: Nystatin Cream 15 GM TUBE 1 APPL TOPICAL ×2 (11:29→20:36)
[2020-07-22 11:56] LABS: Glucose, Whole Blood 79 mg/dL (60-115)
[2020-07-22] MEDS: Sucralfate Oral Suspension 1 GM/10 ML ORAL.SUSP PO ×2 (11:59→16:06)
--- NOTE | 2020-07-22 13:31 | MHC.CARE ---
1243: Met with pt at the request of Dr. Espinosa for a consult regarding depression. Pt's brother was present and pt granted permission for me to speak with his brother as a collateral contact. Pt presented as tired, weak, and older than his stated age. Pt at times presented as defeated and without hope, and at other times very positive. Pt advised me that he is a devout Zoroastrianism of the Confucianism hailey. Pt stated that, due to his present condition, he feels like a burden to his family. Pt cannot take food without experiencing nausea and at times vomiting. Pt describes a loss of appetite and weakness and loss of control of his bowels. Pt stated I don't know what to do . Pt stated that last night he had thoughts of self harm, stating If something doesn't happen to me soon I'm going to kill myself . He stated that God will not allow him to Cross over if he takes his own life. Pt stated that today he had no intent on harming himself. Pt described embarrassment, stating that People walk by and say it stinks in here (his room) . Both the pt and his brother had concerns about what the plan was for discharge. Pt's brother asked if he (patient) would return to [facility], where he had been, or home to his Mother, or if there were any other options. I asked that [employer]st[employer] Supervisor Keiko Gordon visit the room. I provided a business card for Ms. Gordon and advised them that she would be stopping by to see them. Nursing Meter Setter contacted related to the SI statement pt expressed to me, she will be looking for a sitter.
--- NOTE | 2020-07-22 14:08 | MHC.CM.PN ---
NURSE WRAPPING CLERK NOTE ELECTRONIC MEDICAL RECORD REVIEWED ALONG WITH CASE DIASCUSSED WITH STAFF NURSE AND ON MULTIPLE DISCIPLINARY ROUNDS, PATIENT RECEIVED HEMO-DIALYSIS TODAY,. PER DOCUMENTATION PATIENT WITH KNOWN (CIRRHOSIS , ASCITES,COMPLIANING OF DIARRHEA AND DECREASED ORAL INTAKE NOW HEMODIALYISS DEPENDENT, )PLAN IS TO RETUNR BACK TO [facility] ONCE MEDCIALLY STABLE . CLINICAL UPDATES SENT
--- NOTE | 2020-07-22 14:27 | MHC.CLN ---
PT IS SEVERELY MALNOURISHED PT WITH MODERATELY DEPLETED SUBCUTANOUES FAT ANDMUSCLE MASS WITH 10% SIGNIFICANT WT LOSS X 3MONTHS PO INTAKE 0-25% DIET RX: 1800DM-APPROPRIATE RECOMMEND ADDING ENSURE AD LACIE TO PROMOTE WOUND HEALING SUPPLEMENT PROVIDES 860KCALS, 45G PROTEIN SEE ALSO CLINICAL NUTRITION ASSESSMENT
--- NOTE | 2020-07-22 15:15 | HO.PM.IMPN ---
Subjective Subjective Date of Service: 07/23/20 Interval History: poor oral intake ,seems sad/depressed Review of Systems Feels weak, denies any chest pain or nausea or vomiting or abdominal pain poor oral intake. Physical Exam Vital Signs: Vital Signs: Last Vital Signs Temp 97.4 F 07/22/20 11:54 Pulse 101 H 07/22/20 12:02 Resp 16 07/22/20 11:54 BP 98/54 L 07/22/20 14:54 Pulse Ox 95 07/22/20 11:54 Body Mass Index 21.9 Physical exam: Cvs: rrr, [id number] , no murmur res: fair air entry, no wheezing or rhonchii. abd: no rebound or guarding ,nt, bs present. ext pulses present , no cyanosis neuro: axo3 , nonfocal. Objective Data Current Medications Generic Name Dose Route Start Last Admin Trade Name Freq PRN Reason Stop Dose Admin Ascorbic Acid 500 mg 07/19/20 09:00 07/22/20 11:28 Ascorbic Acid 500 Mg Tablet PO 500 mg DAILY ROJAS Administration Atorvastatin Calcium 40 mg 07/18/20 21:00 07/21/20 20:37 Atorvastatin Calcium 40 Mg Tablet PO 40 mg BEDTIME ROJAS Administration Ferrous Sulfate 324 mg 07/19/20 09:00 07/22/20 11:28 Ferrous Sulfate 324 Mg Tablet. PO 324 mg DAILY ROJAS Administration Ceftriaxone Sodium 1 gm/ 50 mls @ 100 mls/hr 07/19/20 07:00 07/22/20 07:13 Sodium Chloride IV Infused Q24H ROJAS Infusion Sodium Chloride 1,000 mls @ 50 mls/hr 07/21/20 18:45 07/22/20 14:55 Ns IVCONT Not Given .Q20H ROJAS Insulin Human Lispro 0 unit 07/18/20 16:30 07/22/20 11:54 Insulin Lispro 100 Unit/Ml 3 Ml Vial SUBCUT Not Given QIDACHS [facility] Protocol Midodrine 20 mg 07/19/20 08:00 07/22/20 12:02 Midodrine Hcl 10 Mg Tablet PO 20 mg TIDWM ROJAS Administration Mirtazapine 7.5 mg 07/18/20 21:00 07/21/20 20:36 Mirtazapine 7.5 Mg Tablet PO 7.5 mg BEDTIME ROJAS Administration Nystatin 1 appl 07/18/20 21:00 07/22/20 11:29 Nystatin Cream 15 Gm Tube TOPICAL 1 appl BID ROJAS Administration Protocol Omeprazole 40 mg 07/19/20 06:30 07/22/20 06:21 Omeprazole 40 Mg Capsule. PO 40 mg BID@0630,0830 ROJAS Administration Ondansetron HCl 4 mg 07/18/20 18:17 07/21/20 11:34 Ondansetron Hcl 4 Mg/2 Ml Vial IVPUSH 4 mg Q8H PRN Administration Nausea and Vomiting Pharmacy Consult 1 each 07/18/20 09:22 Consult Rx Perform Med Rec MISCELLANE ONCE PRN Consult order Sodium Bicarbonate 650 mg 07/18/20 21:00 07/22/20 11:29 Sodium Bicarbonate 650 Mg Tablet PO Not Given TID [facility] Sodium Chloride 3 ml 07/18/20 18:17 07/22/20 11:29 0.9 % Sodium Chloride Flush 3 Ml Syringe IVFLUSH Not Given QSHIFT [facility] Sucralfate 1 gm 07/18/20 18:17 07/22/20 11:59 Sucralfate Oral Suspension 1 Gm/10 Ml Oral.Susp PO 1 gm QIDACHS [facility] Administration Tamsulosin HCl 0.4 mg 07/18/20 21:00 07/21/20 20:37 Tamsulosin Hcl 0.4 Mg Capsule PO 0.4 mg BEDTIME [facility] Administration Vitamin D 50 mcg 07/19/20 09:00 07/22/20 11:28 Cholecalciferol (Vitamin D3) 25 Mcg Tablet PO 50 mcg DAILY ROJAS Administration Labs CBC & Chem 7: 07/23/20 06:03 07/23/20 06:03 Microbiology Microbiology Results: Microbiology 07/18/20 13:34 Abdominal Fluid Gram Stain - Final 07/18/20 13:34 Abdominal Fluid Anaerobic Culture - Preliminary No growth to date. 07/18/20 13:34 Abdominal Fluid Body Fluid Culture - Final No growth after 2 days 07/20/20 14:44 Blood - Central Line Blood Culture - Preliminary No growth after 24 hours. 07/20/20 14:33 Blood - Central Line Blood Culture - Preliminary No growth after 24 hours. 07/18/20 Unknown Urine clean catch - Clean Catch Midstream Urine Culture - Final Nevaeh albicans 07/18/20 10:54 Blood - Venous Blood Culture - Preliminary No growth after 48 hours. 07/18/20 10:41 Blood - Venous Blood Culture - Preliminary No growth after 48 hours. Assessment and Plan (1) Adult failure to thrive: Status: Acute (2) Fever: Status: Acute (3) Anemia in chronic kidney disease: Status: Acute (4) ESRD (end stage renal disease) on dialysis: Status: Acute (5) Type 2 diabetes mellitus with diabetic nephropathy: Status: Acute Assessment and Plan: hospital d#4 70yo M with cirrhosis with ascites, DM2, anemia, severe malnutrition recent admission 06/30-07/14/20 for anuric TREMAYNE with AGMA/NAGMA progressing to HD dependence 07/03/20 with hepatorenal syndrome, obstructive uropathy without hydronephrosis s/p bilateral ureteral stents re-admitted from SNF due to lethargy, decreased PO, FTT, gross hematuria in Ch, abdominal discomfort, fever 1. fever, ?source- no evidence of SBP - BCx negative to date - UCx growing only yeast so far- colonizer? - ?line infection- will send BCx from dialysis catheter [not done yet] - on empiric ceftriaxone d#4, ID f/u. 2.hematuria- Urology consult 3. TREMAYNE->ESRD/HD dependence blood perssure boderline and flactuating , asymptomatic . d/w nephro-did not receive midodrine since yesterdayand HD might contributed. - midodrine, sodium bicarbonate,continue HD as per Nephrology. 4. obstructive uropathy- continue tamsulosin, Ch in place. 5. anemia of chronic disease- Hb stable around 8.8 range . 6.cirrhosis- no evidence of SBP. 7. hypoK- repleted. moniter bmp. 8 DM2- correction-hold insulin moniter fs. 9. FTT/moderate protein-calorie malnutrition- Ensure, treat medical issues as above. Overall not doing well and will talk to him and family regarding hospice. 10.depression/sI: sitter care team eval will need piper qiu discharge VTE ppx- SCDs
[2020-07-22] MEDS: Potassium Chloride Packet 20 MEQ PACKET PO (16:06)
[2020-07-22] MEDS: Sodium Bicarbonate 650 MG TABLET PO (16:07)
[2020-07-22 16:30] LABS: Glucose, Whole Blood 74 mg/dL (60-115)
[2020-07-22 17:36] LABS: Potassium 3.4 mmol/L (3.3-5.1)
[2020-07-22] MEDS: 0.9 % Sodium Chloride 1,000 ML 50 ML IVCONT (17:52)
[2020-07-22 20:44] LABS: Glucose, Whole Blood 72 mg/dL (60-115)
[2020-07-23] VITALS: BP 89/42; PULSE 68; RESP 18; TEMP 36.5; O2SAT 93
[2020-07-23] MEDS: 0.9 % Sodium Chloride 250 ML 50 ML IV (01:42)
[2020-07-23 03:22] VITALS: BP 91/49; PULSE 68; RESP 18; TEMP 36.5; O2SAT 93
[2020-07-23 06:46] LABS: Hematocrit 23.3 % (42-52); Hemoglobin 7.7 g/dl (14.0-18.0)
[2020-07-23 07:03] VITALS: BP 95/28; PULSE 84; RESP 17; TEMP 36.4; O2SAT 98
[2020-07-23 07:17] LABS: Glucose, Whole Blood 54 mg/dL (60-115)
[2020-07-23] MEDS: cefTRIAXone sodium 1 GM in 0.9 % Sodium Chloride 50 ML IV (07:34)
[2020-07-23] MEDS: Sucralfate Oral Suspension 1 GM/10 ML ORAL.SUSP PO ×4 (07:34→19:49)
[2020-07-23 08:04] LABS: Anion Gap 19 (12-20); Blood Urea Nitrogen 9 mg/dL (9-16); Carbon Dioxide 15 mmol/L (22-29); Chloride 104 mmol/L (96-108); Creatinine Clr Calc Pharmacy 17.6; Estimated Glomerular Filt Rate 19; Glucose Random 57 mg/dL (60-115); Potassium 3.2 mmol/L (3.3-5.1); Sodium 135 mmol/L (135-145)
[2020-07-23] MEDS: Midodrine HCl 10 MG TABLET 20 MG PO ×2 (08:54→16:39)
[2020-07-23] MEDS: Potassium Chloride Packet 20 MEQ PACKET PO (09:22)
[2020-07-23] MEDS: Nystatin Cream 15 GM TUBE 1 APPL TOPICAL ×2 (10:21→21:06)
[2020-07-23 11:18] VITALS: BP 124/48; PULSE 85; RESP 16; TEMP 36.4; O2SAT 98
[2020-07-23 11:40] VITALS: BP 158/89; PULSE 81; RESP 18; TEMP 36.6; O2SAT 97
[2020-07-23 12:05] LABS: Glucose, Whole Blood 102 mg/dL (60-115)
[2020-07-23 12:05] LABS: Glucose, Whole Blood 72 mg/dL (60-115)
--- NOTE | 2020-07-23 12:42 | MHC.CM.PN ---
NURSE HEALTH SYSTEMS ANALYST NOTE ELECTRONIC CHART REVIEWED ALONG WIT CASE DISCUSSED WITH HOSPITALIST , GINO SPOKE WITH PATIENT ANS HIS BROTHER YESTERDYA AT WHICH TIME PATIENT WANTED TO CONTINUE EVERYTHING HIS BROTHER APPEARED TO HAVE UNDERSTOOD BETTER, [facility] THEM TODAY AND REDICUSS ADVANCED CARE PLANNING ?QUESTION TO CONTINUE HEMO DIALYSIS AND TAPPING HIS ABDOMEN FOR HIS ASCITIES VS PALLATIVE OR HOSPICE, . PATIENT WAS SEEN BY THE CARES TEAM WORKER AT THE REQUEST OF THE HOSPITALIST FOR CONCERNS OF DEPRESSION (SEE THEIR NOTES) PATIENT VERBALIZED HAVING HAD S.I. SITTER IN ROOM) MET WITH PATIENT AND PHONE CALL TO BROTHER , IF NEEDED THEY WOULD LIKE TO GO BACK TO [facility] LONG-TERM FACILITY PER DOCUMENTATION BY DIETITIAN: ( PATIENT SEVERLY MALNOURISHED,ORAL INTAKE <0-25% RECOMMENDED ADDING ENSURE TO LACIE TO PROMOTE WOUND HEALING WELL INCREASE CALORIES AND PROTEIN DISCHARGE PLAN QUILL MACHINE TENDER TO CONTINUE TO FOLLOW 1. RETURN BACK TO [facility] FOR REHAB VS RETURN WITH HSPICE VS HOME WITH HOSPICE TO BE FURTHER DETERMINED
--- NOTE | 2020-07-23 12:52 | P.PNNP_ITS ---
Subjective Subjective Date of Service: 07/23/20 Interval history: Events noted. All recent data reviewed. D/W hospitalist Physical Exam Vital Signs: Vital Signs: Last Vital Signs Temp 97.9 F 07/23/20 11:40 Pulse 81 07/23/20 11:40 Resp 18 07/23/20 11:40 BP 158/89 H 07/23/20 11:40 Pulse Ox 97 07/23/20 11:40 Body Mass Index 21.9 Const: Other: Cachectic Neck: Neck: Yes supple Resp: Auscultation: diminished lung sounds Cardio: Heart sounds: no rubs GI: Other: Distended with Ascites Neuro: General: moves all extremities Objective Data Labs CBC & Chem 7: 07/23/20 06:03 07/23/20 06:03 Labs: Laboratory Results - last 24 hr 07/22/20 07/22/20 07/22/20 16:15 16:31 20:30 Hgb Hct Sodium Potassium 3.4 Chloride Carbon Dioxide Anion Gap BUN Creatinine Estim Creat Clear Calc Estimated GFR POC Glucose 74 72 Random Glucose Calcium 07/23/20 07/23/20 07/23/20 06:03 06:03 07:14 Hgb 7.7 L Hct 23.3 L Sodium 135 Potassium 3.2 L Chloride 104 Carbon Dioxide 15 L Anion Gap 19 BUN 9 Creatinine 3.28 H Estim Creat Clear Calc 17.6 Estimated GFR 19 POC Glucose 54 L* Random Glucose 57 L* Calcium 8.0 L 07/23/20 07/23/20 07:59 11:05 Hgb Hct Sodium Potassium Chloride Carbon Dioxide Anion Gap BUN Creatinine Estim Creat Clear Calc Estimated GFR POC Glucose 72 102 Random Glucose Calcium Microbiology Microbiology Results: Microbiology 07/18/20 10:41 Blood - Venous Blood Culture - Final No growth after 5 days. 07/18/20 13:34 Abdominal Fluid Gram Stain - Final 07/18/20 13:34 Abdominal Fluid Anaerobic Culture - Final NO GROWTH AFTER 5 DAYS 07/18/20 13:34 Abdominal Fluid Body Fluid Culture - Final No growth after 2 days 07/20/20 14:33 Blood - Central Line Blood Culture - Preliminary No growth after 48 hours. 07/20/20 14:44 Blood - Central Line Blood Culture - Preliminary No growth after 48 hours. 07/18/20 Unknown Urine clean catch - Clean Catch Midstream Urine Culture - Final Nevaeh albicans 07/18/20 10:54 Blood - Venous Blood Culture - Preliminary No growth after 48 hours. 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
--- NOTE | 2020-07-23 12:54 | P.PNIM_ITS ---
Subjective Subjective Date of Service: 07/23/20 Interval History: Advanced liver disease , poor oral intake. Review of Systems has ascitis, denies any nausea or vomiting or abdominal pain Eating bag of chips . Physical Exam Vital Signs: Vital Signs: Last Vital Signs Temp 97.9 F 07/23/20 11:40 Pulse 81 07/23/20 11:40 Resp 18 07/23/20 11:40 BP 158/89 H 07/23/20 11:40 Pulse Ox 97 07/23/20 11:40 Body Mass Index 21.9 Physical exam: Constitutional: Not in acute distress Cvs: rrr, [id number] , no murmur res: clear to auscultation ,no rhonchii or wheezing abd: no rebound or guarding ,globular , has ascitis , bs present. ext pulses present , no cyanosis neuro: axo3 , nonfocal. Objective Data Current Medications Generic Name Dose Route Start Last Admin Trade Name Freq PRN Reason Stop Dose Admin Ascorbic Acid 500 mg 07/19/20 09:00 07/23/20 08:31 Ascorbic Acid 500 Mg Tablet PO Not Given DAILY ROJAS Atorvastatin Calcium 40 mg 07/18/20 21:00 07/22/20 20:35 Atorvastatin Calcium 40 Mg Tablet PO Not Given BEDTIME ROJAS Ferrous Sulfate 324 mg 07/19/20 09:00 07/23/20 08:32 Ferrous Sulfate 324 Mg Tablet.Dr PO Not Given DAILY ROJAS Ceftriaxone Sodium 1 gm/ 50 mls @ 100 mls/hr 07/19/20 07:00 07/23/20 08:22 Sodium Chloride IV Infused Q24H ROJAS Infusion Sodium Chloride 1,000 mls @ 50 mls/hr 07/21/20 18:45 07/22/20 17:52 Ns IVCONT 50 mls/hr .Q20H ROJAS Administration Midodrine 20 mg 07/19/20 08:00 07/23/20 08:54 Midodrine Hcl 10 Mg Tablet PO 20 mg TIDWM ROJAS Administration Mirtazapine 7.5 mg 07/18/20 21:00 07/22/20 20:35 Mirtazapine 7.5 Mg Tablet PO Not Given BEDTIME ROJAS Nystatin 1 appl 07/18/20 21:00 07/23/20 10:21 Nystatin Cream 15 Gm Tube TOPICAL 1 appl BID ROJAS Administration Protocol Omeprazole 40 mg 07/19/20 06:30 07/23/20 06:48 Omeprazole 40 Mg Capsule.Dr PO Not Given BID@7053,2670 [facility] Ondansetron HCl 4 mg 07/18/20 18:17 07/21/20 11:34 Ondansetron Hcl 4 Mg/2 Ml Vial IVPUSH 4 mg Q8H PRN Administration Nausea and Vomiting Pharmacy Consult 1 each 07/18/20 09:22 Consult Rx Perform Med Rec MISCELLANE ONCE PRN Consult order Sodium Bicarbonate 650 mg 07/18/20 21:00 07/23/20 08:32 Sodium Bicarbonate 650 Mg Tablet PO Not Given TID [facility] Sodium Chloride 3 ml 07/18/20 18:17 07/23/20 07:32 0.9 % Sodium Chloride Flush 3 Ml Syringe IVFLUSH Not Given QSHIFT [facility] Sucralfate 1 gm 07/18/20 18:17 07/23/20 07:34 Sucralfate Oral Suspension 1 Gm/10 Ml Oral.Susp PO 1 gm QIDACHS ROJAS Administration Tamsulosin HCl 0.4 mg 07/18/20 21:00 07/22/20 20:36 Tamsulosin Hcl 0.4 Mg Capsule PO Not Given BEDTIME [facility] Vitamin D 50 mcg 07/19/20 09:00 07/23/20 08:32 Cholecalciferol (Vitamin D3) 25 Mcg Tablet PO Not Given DAILY [facility] Labs CBC & Chem 7: 07/23/20 06:03 07/23/20 06:03 Microbiology Microbiology Results: Microbiology 07/18/20 10:41 Blood - Venous Blood Culture - Final No growth after 5 days. 07/18/20 13:34 Abdominal Fluid Gram Stain - Final 07/18/20 13:34 Abdominal Fluid Anaerobic Culture - Final NO GROWTH AFTER 5 DAYS 07/18/20 13:34 Abdominal Fluid Body Fluid Culture - Final No growth after 2 days 07/20/20 14:33 Blood - Central Line Blood Culture - Preliminary No growth after 48 hours. 07/20/20 14:44 Blood - Central Line Blood Culture - Preliminary No growth after 48 hours. 07/18/20 Unknown Urine clean catch - Clean Catch Midstream Urine Culture - Final Nevaeh albicans 07/18/20 10:54 Blood - Venous Blood Culture - Preliminary No growth after 48 hours. Assessment and Plan (1) Liver cirrhosis: Status: Acute (2) TREMAYNE (acute kidney injury): Problem details: 70-year-old male past medical history as above including cirrhosis which appears relatively compensated ,complaining of diarrhea as well as poor oral intake found to have severe ANURIC TREMAYNE and metabolic acidosis now HD dependent Anuric Acute 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: s/p HD started 3 Seen AM; Midodrine to 20 mg tid continue HD support and tap ascites as needed (outpt HD spot at [place] unit TTS 1) Shall follow up ; Next HD tomorrow Status: Acute (3) ESRD (end stage renal disease) on dialysis: Status: Acute (4) Adult failure to thrive: Status: Acute (5) Fever: Status: Acute (6) Anemia in chronic kidney disease: Status: Acute (7) Type 2 diabetes mellitus with diabetic nephropathy: Status: Acute Assessment and Plan: hospital d#6 70yo M with cirrhosis with ascites, DM2, anemia, severe malnutrition recent admission 06/30-07/14/20 for anuric TREMAYNE with AGMA/NAGMA progressing to HD dependence 07/03/20 with hepatorenal syndrome, obstructive uropathy without hydronephrosis s/p bilateral ureteral stents re-admitted from SNF due to lethargy, decreased PO, FTT, gross hematuria in Ch, abdominal discomfort, fever 1. fever, ?source- no evidence of SBP - BCx negative to date - UCx growing only yeast so far- colonizer? - ?line infection- will send BCx from dialysis catheter [not done yet] - on empiric ceftriaxone d#5, ? has loose stool on /off -will add c diff . ID f/u today. 2.hematuria- Urology consult 3. TREMAYNE->ESRD/HD dependence blood perssure boderline and flactuating , asymptomatic . d/w nephro-did not receive midodrine since yesterdayand HD might contributed. - midodrine, sodium bicarbonate,continue HD as per Nephrology. 4. obstructive uropathy- continue tamsulosin, Ch in place. 5. anemia of chronic disease- Hb flauctuating from 7.7 to 8.5 range will continue to moniter . stool occult positive anemia workup added cirrhosis- privious taps-no evidence of SBP. Gi eval added . 7. hypoK- repleted. moniter bmp. 8 DM2- correction-hold insulin moniter fs. 9. FTT/moderate protein-calorie malnutrition- Ensure, treat medical issues as above. Talked to him about his overall general situation-is still wants continue treatment, hopefully GI will have further discussion also that might have helped patient to understand his overall situation Will continue discussed with him, 10.depression/sI: sitter care team eval will need bhn eval febore discharge VTE ppx- SCDs
--- NOTE | 2020-07-23 13:36 | PC.NURSE ---
Called CT scan to find out what time paracentesis is going to be, awaiting call back.
--- NOTE | 2020-07-23 15:17 | PM.IDPN ---
Subjective Subjective Date of Service: 07/23/20 Interval History: he has some diarrhea abdominal distention,no complaints Objective Data Labs CBC & Chem 7: 07/23/20 06:03 07/23/20 06:03 Labs: Laboratory Results - last 24 hr 07/22/20 07/22/20 07/22/20 16:15 16:31 20:30 Hgb Hct Sodium Potassium 3.4 Chloride Carbon Dioxide Anion Gap BUN Creatinine Estim Creat Clear Calc Estimated GFR POC Glucose 74 72 Random Glucose Calcium 07/23/20 07/23/20 07/23/20 06:03 06:03 07:14 Hgb 7.7 L Hct 23.3 L Sodium 135 Potassium 3.2 L Chloride 104 Carbon Dioxide 15 L Anion Gap 19 BUN 9 Creatinine 3.28 H Estim Creat Clear Calc 17.6 Estimated GFR 19 POC Glucose 54 L* Random Glucose 57 L* Calcium 8.0 L 07/23/20 07/23/20 07:59 11:05 Hgb Hct Sodium Potassium Chloride Carbon Dioxide Anion Gap BUN Creatinine Estim Creat Clear Calc Estimated GFR POC Glucose 72 102 Random Glucose Calcium Microbiology Microbiology Results: Microbiology 07/18/20 10:54 Blood - Venous Blood Culture - Final No growth after 5 days. 07/18/20 10:41 Blood - Venous Blood Culture - Final No growth after 5 days. 07/18/20 13:34 Abdominal Fluid Gram Stain - Final 07/18/20 13:34 Abdominal Fluid Anaerobic Culture - Final NO GROWTH AFTER 5 DAYS 07/18/20 13:34 Abdominal Fluid Body Fluid Culture - Final No growth after 2 days 07/20/20 14:33 Blood - Central Line Blood Culture - Preliminary No growth after 48 hours. 07/20/20 14:44 Blood - Central Line Blood Culture - Preliminary No growth after 48 hours. 07/18/20 Unknown Urine clean catch - Clean Catch Midstream Urine Culture - Final Nevaeh albicans Physical Exam Vital Signs: Vital Signs: Last Vital Signs Temp 97.9 F 07/23/20 11:40 Pulse 81 07/23/20 11:40 Resp 18 07/23/20 11:40 BP 158/89 H 07/23/20 11:40 Pulse Ox 97 07/23/20 11:40 Body Mass Index 21.9 Const: General: cooperative HENMT: Head: Yes normal to inspection Mouth: Normal oral and palatal mucosa present Resp: Effort & Inspection: normal respiratory effort Cardio: Rate: regular rate Rhythm: regular rhythm GI: Other: distended Skin: General skin exam: no rashes or lesions noted Assessment and Plan Assessment and plan (1) Liver cirrhosis: Status: Acute (2) Fever: Problem details: Fever resolved,possibly due to SBP still although looked unremarkable He has had 5 days Ceftriaxone Also possible Cdiff if diarrhea continues Status: Acute Assessment and Plan: Stop Ceftriaxone Observe temperature Cdiff if fever Time Spent With Patient Time: Total time spent is greater than 50% in coordination of care (as documented) at patient's floor/unit and/or counseling patient: Time with patient: 15 - 24 minutes
--- NOTE | 2020-07-23 15:25 | HO.RADPN ---
RADIOLOGY Narrative Narrative: RLQ paracentesis performed using 5 Fr rapidcentesis catheter. L serosanguinous flluid removed.
[2020-07-23] MEDS: Lidocaine HCl 1 % MPF 5 ML VIAL SUBCUT (15:34)
[2020-07-23 15:53] VITALS: BP 136/56; PULSE 89; RESP 18; TEMP 36.3; O2SAT 100
[2020-07-23 16:01] LABS: MN% 64.5 %; PMN% 35.5 %; WBC Peritoneal Fluid 0.114 X10*3/uL
[2020-07-23 16:09] LABS: Iron 36 mcg/dL (45-160); Percent Iron Saturation 20 % (15-50); Total Iron Binding Capacity 179 mcg/dL (228-428); Unsaturated Iron Binding 143 ug/dL
[2020-07-23 16:12] LABS: Estimated Average Glucose 108 mg/dL; Hemoglobin A1c % 5.4 %
[2020-07-23 16:21] LABS: Glucose, Whole Blood 71 mg/dL (60-115)
[2020-07-23 16:29] LABS: Lymphocyte Peritoneal Fl 28 %; Monocytes Peritoneal Fl 15 %; Neutrophils Peritoneal Fluid 56 %
[2020-07-23 16:29] LABS: Ferritin 293 ng/mL (20-250)
[2020-07-23 16:30] LABS: BF Shift QC OK YES; Eosinophils Peritoneal Fl 1 %; Man Diluent Bkgrd OK YES
[2020-07-23] MEDS: Albumin Human 25 % 100 ML IV ×4 (16:34→21:05)
[2020-07-23 16:51] LABS: Folate 4.1 ng/mL (> or = 4.0); Vitamin B12 1414 pg/mL (200-900)
[2020-07-23] MEDS: Mirtazapine 7.5 MG TABLET PO (19:49)
[2020-07-23] MEDS: 0.9 % Sodium Chloride Flush 3 ML SYRINGE IVFLUSH (19:49)
[2020-07-23] MEDS: Atorvastatin Calcium 40 MG TABLET PO (19:49)
[2020-07-23] MEDS: Sodium Bicarbonate 650 MG TABLET PO (19:49)
[2020-07-23 20:24] LABS: Glucose, Whole Blood 66 mg/dL (60-115)
--- NOTE | 2020-07-23 22:55 | P.CNGI_ITS ---
History of Present Illness Data of Consult Service Date: 07/23/20 Requesting physician: Kimi Espinosa Primary Care Provider: Sony Munoz MD HPI Reason for consult: co management of liver disease 70-year-old patient with hx of decompensated liver failure and cirrhosis along with acute renal failure (possibly from obstruction vs crystal nephropathy s/p ureter stenting) who I am asked to see for assessment and co management. Patient was in just recently for acute renal failure requiring eventula dialysis. He was recently started on hemodialysis, who presents to the hospital with failure to thrive. Patient recently had a hospitalization until the of this month, but was doing poorly at SNF with reduced PO intake and failure to thrive. Currently he arboleda generalized discomfort with poor appettite and fatigue. History is diffcult to obtain due to his vaguness and inattention. He denies fever or SOB, no chest pain, some abdo discomfort. Blood noted in liu. 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 Type 2 diabetes mellitus with hyperglycemia Weakness Family History Family History Father Diabetes Mother Breast cancer Diabetes Cardiovascular disease Brother Diabetes Sister Diabetes Surgical History Surgical History History of liver biopsy Social History Social History Household Members: Family Housing: Apartment Alcohol intake: former Smoking Status: Former smoker Tobacco Type: Cigarette Packs Per Day: 2 Cigarettes Per Day: 40.0 Second Hand Smoke Exposure: No Advance Directives Date on File: 07/18/20 service: No Current occupational status: retired Meds Allergies Allergy/AdvReac Type Severity Reaction Status Date / Time No Known Allergies Allergy Verified 05/26/20 10:49 Active Medications: Current Medications Generic Name Dose Route Start Last Admin Trade Name Shahzadq PRN Reason Stop Dose Admin Ascorbic Acid 500 mg 07/19/20 09:00 07/23/20 08:31 Ascorbic Acid 500 Mg Tablet PO Not Given DAILY ROJAS Atorvastatin Calcium 40 mg 07/18/20 21:00 07/23/20 19:49 Atorvastatin Calcium 40 Mg Tablet PO 40 mg BEDTIME ROJAS Administration Ferrous Sulfate 324 mg 07/19/20 09:00 07/23/20 08:32 Ferrous Sulfate 324 Mg Tablet. PO Not Given DAILY ROJAS Sodium Chloride 1,000 mls @ 50 mls/hr 07/21/20 18:45 07/23/20 15:40 Ns IVCONT Infused .Q20H ROJAS Infusion Midodrine 20 mg 07/19/20 08:00 07/23/20 16:39 Midodrine Hcl 10 Mg Tablet PO 20 mg TIDWM ROJAS Administration Mirtazapine 7.5 mg 07/18/20 21:00 07/23/20 19:49 Mirtazapine 7.5 Mg Tablet PO 7.5 mg BEDTIME ROJAS Administration Nystatin 1 appl 07/18/20 21:00 07/23/20 21:06 Nystatin Cream 15 Gm Tube TOPICAL 1 appl BID ROJAS Administration Protocol Omeprazole 40 mg 07/19/20 06:30 07/23/20 16:41 Omeprazole 40 Mg Capsule. PO Not Given BID@0630,1630 [facility] Ondansetron HCl 4 mg 07/18/20 18:17 07/21/20 11:34 Ondansetron Hcl 4 Mg/2 Ml Vial IVPUSH 4 mg Q8H PRN Administration Nausea and Vomiting Pharmacy Consult 1 each 07/18/20 09:22 Consult Rx Perform Med Rec MISCELLANE ONCE PRN Consult order Sodium Bicarbonate 650 mg 07/18/20 21:00 07/23/20 19:49 Sodium Bicarbonate 650 Mg Tablet PO 650 mg TID ROJAS Administration Sodium Chloride 3 ml 07/18/20 18:17 07/23/20 19:49 0.9 % Sodium Chloride Flush 3 Ml Syringe IVFLUSH 3 ml QSHIFT ROJAS Administration Sucralfate 1 gm 07/18/20 18:17 07/23/20 19:49 Sucralfate Oral Suspension 1 Gm/10 Ml Oral.Susp PO 1 gm QIDACHS ROJAS Administration Tamsulosin HCl 0.4 mg 07/18/20 21:00 07/23/20 19:49 Tamsulosin Hcl 0.4 Mg Capsule PO Not Given BEDTIME ROJAS Vitamin D 50 mcg 07/19/20 09:00 07/23/20 08:32 Cholecalciferol (Vitamin D3) 25 Mcg Tablet PO Not Given DAILY [facility] Home Medications Medication Instructions Recorded Confirmed Last Taken Type ascorbic acid (vitamin C) 500 mg 500 mg PO DAILY 02/19/20 07/18/20 07/17/20 History tablet cholecalciferol (vitamin D3) 50 50 mcg PO DAILY 02/19/20 07/18/20 07/17/20 History mcg (2,000 unit) tablet ferrous sulfate 325 mg (65 mg 325 mg PO DAILY 02/19/20 07/18/20 07/17/20 History iron) tablet tamsulosin 0.4 mg capsule 0.4 mg PO BEDTIME 02/19/20 07/18/20 07/17/20 History atorvastatin 40 mg tablet 40 mg PO BEDTIME tab 03/25/20 07/18/20 07/17/20 History insulin aspart U-100 [Novolog 6 unit SUBCUT TID 06/30/20 07/18/20 07/17/20 History Flexpen U-100 Insulin] sucralfate 10 ml PO QIDACHS 06/30/20 07/18/20 07/17/20 History empagliflozin [Jardiance] 25 mg PO DAILY 07/18/20 07/18/20 07/17/20 History insulin glargine [Semglee Pen 14 unit SUBCUT QAM 07/18/20 07/18/20 07/17/20 History U-100 Insulin] mirtazapine 7.5 mg PO BEDTIME 07/18/20 07/18/20 07/17/20 History nystatin 1 appl TOPICAL BID 07/18/20 07/18/20 07/17/20 History omeprazole 40 mg PO BID 07/18/20 07/18/20 07/17/20 History ondansetron HCl [Zofran] 4 mg PO Q8H PRN 07/18/20 07/18/20 Unknown History Physical Exam Vital Signs: Vital Signs: Last Vital Signs Temp 97.3 F 07/23/20 15:53 Pulse 89 07/23/20 15:53 Resp 18 07/23/20 15:53 BP 136/56 L 07/23/20 15:53 Pulse Ox 100 07/23/20 15:53 Body Mass Index 21.9 Const: Other: Cachectic General: cooperative, alert, awake, confusion and ill appearing; No no acute distress or acute distress Nutritional Appearance: thin Orientation/consciousness: patient oriented x3 and confusion Limitations: no limitations HENMT: Head: Yes normal to inspection, Yes normocephalic and Yes atraumatic Ears: hearing grossly normal bilaterally General nose exam: Normal external nose present Face and sinus: Yes normal facial exam Mouth: Normal oral and palatal mucosa present Eyes: General: appearance normal, both eyes and all related structures EOM: EOMs intact bilaterally Neck: Neck: Yes normal visual inspection and Yes supple Resp: Effort & Inspection: normal respiratory effort and decreased respiratory effort Auscultation: clear to auscultation bilaterally and diminished lung sounds Cardio: Rate: regular rate Rhythm: regular rhythm Heart sounds: S1 normal heart sound present, S2 normal heart sound present and no rubs GI: Other: distended Inspection: Yes normal to inspection and Yes distended Palpation (GI): Soft to palpation, nontender, no guarding, not rigid and Ascites present Percussion: Yes normal to percussion and Yes Fluid wave present Skin: General skin exam: no rashes or lesions noted Rashes: no rashes Wounds: no wounds Neuro: General: patient oriented x3, tone normal, moves all extremities and confusion Extrem: General: Yes normal to inspection, Yes no pedal edema and Yes edema Results Labs CBC & Chem 7: 07/25/20 06:22 07/24/20 05:53 Labs: Short CBC 07/23/20 Range/Units 06:03 Hgb 7.7 L (14.0-18.0) g/dl Hct 23.3 L (42-52) % BMP 07/23/20 06:03 Sodium 135 Potassium 3.2 L Chloride 104 Carbon Dioxide 15 L BUN 9 Creatinine 3.28 H Calcium 8.0 L Microbiology Microbiology Results: Microbiology 07/18/20 10:54 Blood - Venous Blood Culture - Final No growth after 5 days. 07/18/20 10:41 Blood - Venous Blood Culture - Final No growth after 5 days. 07/18/20 13:34 Abdominal Fluid Gram Stain - Final 07/18/20 13:34 Abdominal Fluid Anaerobic Culture - Final NO GROWTH AFTER 5 DAYS 07/18/20 13:34 Abdominal Fluid Body Fluid Culture - Final No growth after 2 days 07/20/20 14:33 Blood - Central Line Blood Culture - Preliminary No growth after 48 hours. 07/20/20 14:44 Blood - Central Line Blood Culture - Preliminary No growth after 48 hours. 07/18/20 Unknown Urine clean catch - Clean Catch Midstream Urine Culture - Final Nevaeh albicans Assessment and Plan (1) Liver cirrhosis: Status: Acute (2) Anemia in chronic kidney disease: Status: Acute (3) ESRD (end stage renal disease) on dialysis: Status: Acute (4) Severe malnutrition: Status: Acute 1/ Failure to thrive and malnutrition with general deterioration, multifactorial with no one single etiology to blame but he has 2 big hits to kidneys and liver. Prior to his index admission with GI bleed I had been concerned about possible HCC with imaging having shown PVT. 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
[2020-07-24] VITALS (7 sets, daily range): BP systolic 94–104; BP diastolic 45–61; PULSE 18–98; RESP 15–18; TEMP 36.1–36.8; O2SAT 97–98
[2020-07-24] LABS: CDIFF Ag Negative (Negative); CDIFF Internal ctrl Dots and bkg OK (V); CDiff Toxin Negative (Negative)
[2020-07-24] MEDS: 0.9 % Sodium Chloride 1,000 ML 50 ML IVCONT (05:41)
[2020-07-24 06:26] LABS: Hemoglobin 7.5 g/dl (14.0-18.0); PLT CLUMP 1
[2020-07-24 06:28] LABS: Hematocrit 22.4 % (42-52); Mean Corpuscular HGB Conc 33.5 g/dl (31.0-36.0); Mean Corpuscular Hemoglobin 29.4 pg (27.0-33.0); Mean Corpuscular Volume 87.8 fL (80-98); Mean Platelet Volume 10.5 fL (9.4-12.4); Platelet Count 101 X10*3/uL (160-400); Red Blood Count 2.55 X10*6/uL (4.60-5.80); Red Cell Distribution Width 22.1 % (11.0-16.0); White Blood Count 9.4 X10*3/uL (4.8-10.8)
[2020-07-24 07:16] LABS: Creatinine Clr Calc Pharmacy 13.3; Estimated Glomerular Filt Rate 14
[2020-07-24 07:18] LABS: Anion Gap 19 (12-20); Blood Urea Nitrogen 14 mg/dL (9-16); Calcium 8.8 mg/dL (8.4-10.2); Carbon Dioxide 15 mmol/L (22-29); Chloride 108 mmol/L (96-108); Glucose Random 63 mg/dL (60-115); Potassium 2.9 mmol/L (3.3-5.1); Sodium 139 mmol/L (135-145)
[2020-07-24 07:30] LABS: Total Protein Peritoneal Fluid 1.4
[2020-07-24 07:31] LABS: Glucose Peritoneal Fluid 100; LDH Peritoneal Fluid 63
[2020-07-24 07:49] LABS: Glucose, Whole Blood 66 mg/dL (60-115)
[2020-07-24 09:34] LABS: Glucose, Whole Blood 80 mg/dL (60-115)
[2020-07-24 10:06] LABS: Glucose, Whole Blood 65 mg/dL (60-115)
--- NOTE | 2020-07-24 11:55 | MHC.CLN ---
F/U PO INTAKE REMAINS POOR WITH INCREASE IN REFUSALS DIET RX: 1800DM-APPROPRIATE PT RECEIVING ENSURE AND LACIE TO PROMOTE WOUND HEALING SUPPLEMENT PROVIDES 860KCALS, 45G PROTEIN PT REPORTED HE LIKES STRAWBERRY AND RULA FLAVOR ENSURE BUT NOT 100% RECEPTIVE TO DRINKING NOTED DR FARLEY RECOMMEND TPN/PPN FOR ADDED NUTRITION SUPPORT IF PPN NEEDED; RECOMMEND D10 AA4.25 AT 45CC/HR TO PROVIDE 551KCALS, 46G PROTEIN PLEASE CONSULT RD IF TO PROCEED WITH PPN FOLLOWING
[2020-07-24 12:20] LABS: Glucose, Whole Blood 74 mg/dL (60-115)
--- NOTE | 2020-07-24 13:51 | PM.PNNEP ---
Subjective Subjective Date of Service: 07/24/20 Interval history: Events noted. Seen on HD. Tolerating HD. D/W HD RN Physical Exam Vital Signs: Vital Signs: Last Vital Signs Temp 98.2 F 07/24/20 12:21 Pulse 98 07/24/20 12:21 Resp 15 07/24/20 12:21 BP 96/61 07/24/20 12:21 Pulse Ox 97 07/24/20 12:21 Body Mass Index 21.9 Const: Other: Cachectic Neck: Neck: Yes supple Resp: Auscultation: diminished lung sounds Cardio: Heart sounds: no rubs GI: Other: Ascites + Neuro: General: moves all extremities Objective Data Labs CBC & Chem 7: 07/24/20 05:53 07/24/20 05:53 Labs: Laboratory Results - last 24 hr 07/23/20 07/23/20 07/23/20 06:03 06:03 06:03 WBC RBC Hgb Hct MCV MCH MCHC RDW Plt Count MPV Absolute Nucleated RBC Nucleated RBC % (auto) Sodium Potassium Chloride Carbon Dioxide Anion Gap BUN Creatinine Estim Creat Clear Calc Estimated GFR POC Glucose Random Glucose Estimat Average Glucose 108 Hemoglobin A1c % 5.4 Calcium Iron 36 L TIBC 179 L % Saturation 20 Unsat Iron Binding 143 Ferritin 293 H Vitamin B12 1414 H Folate 4.1 Peritoneal WBC Peritoneal RBC Periton Neutrophils Periton Lymphocytes Peritoneal Monocytes Peritoneal Eosinophils Peritoneal Tot Protein Peritoneal LDH Peritoneal Glucose C. difficile Toxin A&B C. difficile Antigen C. difficile Interpret 07/23/20 07/23/20 07/23/20 15:17 15:30 16:14 WBC RBC Hgb Hct MCV MCH MCHC RDW Plt Count MPV Absolute Nucleated RBC Nucleated RBC % (auto) Sodium Potassium Chloride Carbon Dioxide Anion Gap BUN Creatinine Estim Creat Clear Calc Estimated GFR POC Glucose 71 Random Glucose Estimat Average Glucose Hemoglobin A1c % Calcium Iron TIBC % Saturation Unsat Iron Binding Ferritin Vitamin B12 Folate Peritoneal WBC 0.114 Peritoneal RBC 0.010 Periton Neutrophils 56 Periton Lymphocytes 28 Peritoneal Monocytes 15 Peritoneal Eosinophils 1 Peritoneal Tot Protein 1.4 Peritoneal LDH 63 Peritoneal Glucose 100 C. difficile Toxin A&B C. difficile Antigen C. difficile Interpret 07/23/20 07/23/20 07/24/20 20:18 23:00 05:53 WBC 9.4 RBC 2.55 L Hgb 7.5 L Hct 22.4 L MCV 87.8 MCH 29.4 MCHC 33.5 RDW 22.1 H Plt Count 101 L MPV 10.5 Absolute Nucleated RBC 0.000 Nucleated RBC % (auto) 0.0 Sodium Potassium Chloride Carbon Dioxide Anion Gap BUN Creatinine Estim Creat Clear Calc Estimated GFR POC Glucose 66 Random Glucose Estimat Average Glucose Hemoglobin A1c % Calcium Iron TIBC % Saturation Unsat Iron Binding Ferritin Vitamin B12 Folate Peritoneal WBC Peritoneal RBC Periton Neutrophils Periton Lymphocytes Peritoneal Monocytes Peritoneal Eosinophils Peritoneal Tot Protein Peritoneal LDH Peritoneal Glucose C. difficile Toxin A&B Negative C. difficile Antigen Negative C. difficile Interpret SEE NOTE 07/24/20 07/24/20 07/24/20 05:53 07:33 07:50 WBC RBC Hgb Hct MCV MCH MCHC RDW Plt Count MPV Absolute Nucleated RBC Nucleated RBC % (auto) Sodium 139 Potassium 2.9 L Chloride 108 Carbon Dioxide 15 L Anion Gap 19 BUN 14 D Creatinine 4.36 H* Estim Creat Clear Calc 13.3 Estimated GFR 14 POC Glucose 66 65 Random Glucose 63 Estimat Average Glucose Hemoglobin A1c % Calcium 8.8 D Iron TIBC % Saturation Unsat Iron Binding Ferritin Vitamin B12 Folate Peritoneal WBC Peritoneal RBC Periton Neutrophils Periton Lymphocytes Peritoneal Monocytes Peritoneal Eosinophils Peritoneal Tot Protein Peritoneal LDH Peritoneal Glucose C. difficile Toxin A&B C. difficile Antigen C. difficile Interpret 07/24/20 07/24/20 09:31 12:14 WBC RBC Hgb Hct MCV MCH MCHC RDW Plt Count MPV Absolute Nucleated RBC Nucleated RBC % (auto) Sodium Potassium Chloride Carbon Dioxide Anion Gap BUN Creatinine Estim Creat Clear Calc Estimated GFR POC Glucose 80 74 Random Glucose Estimat Average Glucose Hemoglobin A1c % Calcium Iron TIBC % Saturation Unsat Iron Binding Ferritin Vitamin B12 Folate Peritoneal WBC Peritoneal RBC Periton Neutrophils Periton Lymphocytes Peritoneal Monocytes Peritoneal Eosinophils Peritoneal Tot Protein Peritoneal LDH Peritoneal Glucose C. difficile Toxin A&B C. difficile Antigen C. difficile Interpret Microbiology Microbiology Results: Microbiology 07/23/20 15:17 Abdominal Fluid Gram Stain - Final 07/23/20 15:17 Abdominal Fluid Routine Culture - Preliminary No growth to date. 07/23/20 15:17 Abdominal Fluid Anaerobic Culture - Preliminary No growth to date. 07/18/20 10:54 Blood - Venous Blood Culture - Final No growth after 5 days. 07/18/20 10:41 Blood - Venous Blood Culture - Final No growth after 5 days. 07/18/20 13:34 Abdominal Fluid Gram Stain - Final 07/18/20 13:34 Abdominal Fluid Anaerobic Culture - Final NO GROWTH AFTER 5 DAYS 07/18/20 13:34 Abdominal Fluid Body Fluid Culture - Final No growth after 2 days 07/20/20 14:33 Blood - Central Line Blood Culture - Preliminary No growth after 48 hours. 07/20/20 14:44 Blood - Central Line Blood Culture - Preliminary No growth after 48 hours. 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
--- NOTE | 2020-07-24 13:53 | HO.PM.IMPN ---
Subjective Subjective Date of Service: 07/24/20 Interval History: Weak, decreased appetite Cardiovascular Cardiovascular: Reports no additional cardiovascular complaints Gastrointestinal Gastrointestinal: Reports no additional gastrointestinal complaints Physical Exam Vital Signs: Vital Signs: Last Vital Signs Temp 98.2 F 07/24/20 12:21 Pulse 98 07/24/20 12:21 Resp 15 07/24/20 12:21 BP 96/61 07/24/20 12:21 Pulse Ox 97 07/24/20 12:21 Body Mass Index 21.9 General: lethargic O X 3, cachexia, ill appearing Resp: dimoinished CVS: S1,S2,RRR GI: soft, non tender, some distension Neuro: motor grossly intact Psych: appropriate affect Objective Data Current Medications Generic Name Dose Route Start Last Admin Trade Name Freq PRN Reason Stop Dose Admin Ascorbic Acid 500 mg 07/19/20 09:00 07/24/20 10:10 Ascorbic Acid 500 Mg Tablet PO Not Given DAILY ROJAS Atorvastatin Calcium 40 mg 07/18/20 21:00 07/23/20 19:49 Atorvastatin Calcium 40 Mg Tablet PO 40 mg BEDTIME ROJAS Administration Ferrous Sulfate 324 mg 07/19/20 09:00 07/24/20 10:11 Ferrous Sulfate 324 Mg Tablet. PO Not Given DAILY ROJAS Sodium Chloride 1,000 mls @ 50 mls/hr 07/21/20 18:45 07/24/20 05:41 Ns IVCONT 50 mls/hr .Q20H ROJAS Administration Midodrine 20 mg 07/19/20 08:00 07/24/20 12:02 Midodrine Hcl 10 Mg Tablet PO Not Given TIDWM [facility] Mirtazapine 7.5 mg 07/18/20 21:00 07/23/20 19:49 Mirtazapine 7.5 Mg Tablet PO 7.5 mg BEDTIME ROJAS Administration Nystatin 1 appl 07/18/20 21:00 07/24/20 10:11 Nystatin Cream 15 Gm Tube TOPICAL Not Given BID [facility] Protocol Omeprazole 40 mg 07/19/20 06:30 07/24/20 05:38 Omeprazole 40 Mg Capsule.Dr PO Not Given BID@0630,1630 [facility] Ondansetron HCl 4 mg 07/18/20 18:17 07/21/20 11:34 Ondansetron Hcl 4 Mg/2 Ml Vial IVPUSH 4 mg Q8H PRN Administration Nausea and Vomiting Pharmacy Consult 1 each 07/18/20 09:22 Consult Rx Perform Med Rec MISCELLANE ONCE PRN Consult order Sodium Bicarbonate 650 mg 07/18/20 21:00 07/24/20 10:11 Sodium Bicarbonate 650 Mg Tablet PO Not Given TID [facility] Sodium Chloride 3 ml 07/18/20 18:17 07/24/20 08:00 0.9 % Sodium Chloride Flush 3 Ml Syringe IVFLUSH Not Given QSHIFT [facility] Sucralfate 1 gm 07/18/20 18:17 07/24/20 11:23 Sucralfate Oral Suspension 1 Gm/10 Ml Oral.Susp PO Not Given QIDACHS [facility] Tamsulosin HCl 0.4 mg 07/18/20 21:00 07/23/20 19:49 Tamsulosin Hcl 0.4 Mg Capsule PO Not Given BEDTIME [facility] Vitamin D 50 mcg 07/19/20 09:00 07/24/20 10:10 Cholecalciferol (Vitamin D3) 25 Mcg Tablet PO Not Given DAILY [facility] Labs CBC & Chem 7: 07/24/20 05:53 07/24/20 05:53 Microbiology Microbiology Results: Microbiology 07/23/20 15:17 Abdominal Fluid Gram Stain - Final 07/23/20 15:17 Abdominal Fluid Routine Culture - Preliminary No growth to date. 07/23/20 15:17 Abdominal Fluid Anaerobic Culture - Preliminary No growth to date. 07/18/20 10:54 Blood - Venous Blood Culture - Final No growth after 5 days. 07/18/20 10:41 Blood - Venous Blood Culture - Final No growth after 5 days. 07/18/20 13:34 Abdominal Fluid Gram Stain - Final 07/18/20 13:34 Abdominal Fluid Anaerobic Culture - Final NO GROWTH AFTER 5 DAYS 07/18/20 13:34 Abdominal Fluid Body Fluid Culture - Final No growth after 2 days 07/20/20 14:33 Blood - Central Line Blood Culture - Preliminary No growth after 48 hours. 07/20/20 14:44 Blood - Central Line Blood Culture - Preliminary No growth after 48 hours. 07/18/20 Unknown Urine clean catch - Clean Catch Midstream Urine Culture - Final Nevaeh albicans Assessment and Plan (1) Liver cirrhosis: Status: Acute (2) TREMAYNE (acute kidney injury): Problem details: 70-year-old male past medical history as above including cirrhosis which appears relatively compensated ,complaining of diarrhea as well as poor oral intake found to have severe ANURIC TREMAYNE and metabolic acidosis now HD dependent Anuric Acute 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: s/p HD started 07/03 Seen on HD AM; Midodrine 20 mg tid continue HD support and tap ascites as needed (outpt HD spot at [place] unit TTS 1) Shall follow up ; Poor prognosis Status: Acute (3) ESRD (end stage renal disease) on dialysis: Status: Acute (4) Adult failure to thrive: Status: Acute (5) Fever: Status: Acute (6) Anemia in chronic kidney disease: Status: Acute (7) Type 2 diabetes mellitus with diabetic nephropathy: Status: Acute Assessment and Plan: hospital d#7 70yo M with cirrhosis with ascites, DM2, anemia, severe malnutrition recent admission 06/30-07/14/20 for anuric TREMAYNE with AGMA/NAGMA progressing to HD dependence 07/03/20 with hepatorenal syndrome, obstructive uropathy without hydronephrosis s/p bilateral ureteral stents re-admitted from SNF due to lethargy, decreased PO, FTT, gross hematuria in Ch, abdominal discomfort, fever fever, ?source- no evidence of SBP - BCx negative to date - UCx growing only yeast so far- colonizer? - ?line infection- will send BCx from dialysis catheter [not done yet] had 5 days empiric ceftriaxone monitor off antibiotics hematuria Urology consult 3AKI->ESRD/HD dependence blood perssure boderline and flactuating , asymptomatic . d/w nephro-did not receive midodrine since yesterdayand HD might contributed. midodrine, sodium bicarbonate,continue HD as per Nephrology. anemia of chronic disease- Hb flauctuating from 7.7 to 8.5 range will continue to moniter . cirrhosis- privious taps-no evidence of SBP. DM with hypoglcyemia monitor FTT/moderate protein-calorie malnutrition- Ensure, treat medical issues as above. still wants continue treatment depression/sI: sitter care team cindy will need bhn cindy qiu discharge VTE ppx- SCDs
[2020-07-24 16:20] LABS: Glucose, Whole Blood 55 mg/dL (60-115)
[2020-07-24] MEDS: Dextrose 5 % and Lactated Ring 1,000 ML 50 ML IVCONT (17:05)
[2020-07-24 19:09] LABS: Glucose, Whole Blood 151 mg/dL (60-115)
[2020-07-24 20:49] LABS: Glucose, Whole Blood 112 mg/dL (60-115)
[2020-07-24] MEDS: Nystatin Cream 15 GM TUBE 1 APPL TOPICAL (21:07)
[2020-07-25] VITALS (9 sets, daily range): BP systolic 80–100; BP diastolic 48–60; PULSE 70–99; RESP 14–18; TEMP 36.2–37.6; O2SAT 97–100
[2020-07-25] MEDS: 0.9 % Sodium Chloride 500 ML 50 ML IV (04:31)
--- NOTE | 2020-07-25 05:29 | PC.NURSE ---
07/25/20 @0332 Pt was recored to have a blood pressure of 80/50 (manually). Md was notified. Md ordered bolus normal saline. Pressure was checked again. BP was 100/60
[2020-07-25 06:51] LABS: MANUAL DIFF FLAG SCAN; Mean Corpuscular Hemoglobin 29.5 pg (27.0-33.0); PLT CLUMP 1; Red Blood Count 2.34 X10*6/uL (4.60-5.80); SCAN SMEAR FLAG 1
[2020-07-25 06:53] LABS: Basophils Absolute Auto 0.1 X10*3/uL (0.0-0.2); Basophils Percent Auto 0.6 % (0-2); Eosinophils Absolute Auto 0.2 X10*3/uL (0.0-0.4); Eosinophils Percent Auto 2.1 % (0-4); Imm Gran Abs Auto 0.04 X10*3/uL (0.00-0.03); Imm Gran Pct Auto 0.4 % (0.0-0.4); Lymphocytes Absolute Auto 1.2 X10*3/uL (1.2-4.9); Lymphocytes Percent Auto 10.9 % (20-40); Mean Corpuscular HGB Conc 33.8 g/dl (31.0-36.0); Mean Corpuscular Volume 87.2 fL (80-98); Mean Platelet Volume 10.2 fL (9.4-12.4); Monocytes Absolute Auto 0.8 X10*3/uL (0.1-1.2); Monocytes Percent Auto 7.7 % (2-11); Neutrophils Absolute Auto 8.3 X10*3/uL (2.0-8.3); Neutrophils Percent Auto 78.3 % (45-73); Red Cell Distribution Width 22.1 % (11.0-16.0); White Blood Count 10.6 X10*3/uL (4.8-10.8)
[2020-07-25 07:14] LABS: Hematocrit 20.4 % (42-52); Hemoglobin 6.9 g/dl (14.0-18.0)
[2020-07-25 07:20] LABS: Platelet Count 94 X10*3/uL (160-400)
[2020-07-25 07:32] LABS: Anion Gap 15 (12-20); Blood Urea Nitrogen 7 mg/dL (9-16); Calcium 8.4 mg/dL (8.4-10.2); Carbon Dioxide 21 mmol/L (22-29); Chloride 105 mmol/L (96-108); Creatinine Clr Calc Pharmacy 19.8; Estimated Glomerular Filt Rate 22; Glucose Fasting 112 mg/dL (60-99); Potassium 2.7 mmol/L (3.3-5.1); Sodium 138 mmol/L (135-145)
[2020-07-25 07:41] LABS: SLIDE REVIEW VERIFIED
[2020-07-25 07:50] LABS: Glucose, Whole Blood 109 mg/dL (60-115)
--- NOTE | 2020-07-25 11:08 | P.PNIM_ITS ---
Subjective Subjective Date of Service: 07/25/20 Interval History: weak Cardiovascular Cardiovascular: Reports no additional cardiovascular complaints Respiratory Respiratory: Reports no additional respiratory complaints Physical Exam Vital Signs: Vital Signs: Last Vital Signs Temp 97.1 F 07/25/20 07:09 Pulse 70 07/25/20 07:09 Resp 16 07/25/20 07:09 BP 95/58 L 07/25/20 07:09 Pulse Ox 98 07/25/20 07:09 Body Mass Index 21.9 General: lethargic O X 3, cachexia, ill appearing Resp: dimoinished CVS: S1,S2,RRR GI: soft, non tender, some distension Neuro: motor grossly intact Psych: appropriate affect Objective Data Current Medications Generic Name Dose Route Start Last Admin Trade Name Freq PRN Reason Stop Dose Admin Ascorbic Acid 500 mg 07/19/20 09:00 07/25/20 10:21 Ascorbic Acid 500 Mg Tablet PO Not Given DAILY ROJAS Atorvastatin Calcium 40 mg 07/18/20 21:00 07/24/20 20:28 Atorvastatin Calcium 40 Mg Tablet PO Not Given BEDTIME ROJAS Ferrous Sulfate 324 mg 07/19/20 09:00 07/25/20 10:21 Ferrous Sulfate 324 Mg Tablet. PO Not Given DAILY ROJAS Dextrose/Lactated Ringer's 1,000 mls @ 50 mls/hr 07/24/20 17:00 07/24/20 17:05 D5lr IVCONT 50 mls/hr .Q20H ROJAS Administration Sodium Chloride 500 mls @ 50 mls/hr 07/25/20 03:45 07/25/20 04:31 Ns IV 07/25/20 13:44 50 mls/hr .Q10H ROJAS Administration Midodrine 20 mg 07/19/20 08:00 07/25/20 10:21 Midodrine Hcl 10 Mg Tablet PO Not Given TIDWM ROJAS Mirtazapine 7.5 mg 07/18/20 21:00 07/24/20 20:28 Mirtazapine 7.5 Mg Tablet PO Not Given BEDTIME [facility] Nystatin 1 appl 07/18/20 21:00 07/25/20 10:21 Nystatin Cream 15 Gm Tube TOPICAL Not Given BID [facility] Protocol Omeprazole 40 mg 07/19/20 06:30 07/25/20 05:32 Omeprazole 40 Mg Capsule. PO Not Given BID@0630,1630 [facility] Ondansetron HCl 4 mg 07/18/20 18:17 07/21/20 11:34 Ondansetron Hcl 4 Mg/2 Ml Vial IVPUSH 4 mg Q8H PRN Administration Nausea and Vomiting Pharmacy Consult 1 each 07/18/20 09:22 Consult Rx Perform Med Rec MISCELLANE ONCE PRN Consult order Sodium Bicarbonate 650 mg 07/18/20 21:00 07/25/20 10:22 Sodium Bicarbonate 650 Mg Tablet PO Not Given TID [facility] Sodium Chloride 3 ml 07/18/20 18:17 07/25/20 10:20 0.9 % Sodium Chloride Flush 3 Ml Syringe IVFLUSH Not Given QSHIFT [facility] Sucralfate 1 gm 07/18/20 18:17 07/25/20 10:20 Sucralfate Oral Suspension 1 Gm/10 Ml Oral.Susp PO Not Given QIDACHS [facility] Tamsulosin HCl 0.4 mg 07/18/20 21:00 07/24/20 20:29 Tamsulosin Hcl 0.4 Mg Capsule PO Not Given BEDTIME [facility] Vitamin D 50 mcg 07/19/20 09:00 07/25/20 10:21 Cholecalciferol (Vitamin D3) 25 Mcg Tablet PO Not Given DAILY [facility] Labs CBC & Chem 7: 07/25/20 06:22 07/25/20 06:22 Microbiology Microbiology Results: Microbiology 07/23/20 15:17 Abdominal Fluid Gram Stain - Final 07/23/20 15:17 Abdominal Fluid Routine Culture - Final No growth after 2 days 07/23/20 15:17 Abdominal Fluid Anaerobic Culture - Preliminary No growth to date. 07/18/20 10:54 Blood - Venous Blood Culture - Final No growth after 5 days. 07/18/20 10:41 Blood - Venous Blood Culture - Final No growth after 5 days. 07/18/20 13:34 Abdominal Fluid Gram Stain - Final 07/18/20 13:34 Abdominal Fluid Anaerobic Culture - Final NO GROWTH AFTER 5 DAYS 07/18/20 13:34 Abdominal Fluid Body Fluid Culture - Final No growth after 2 days 07/20/20 14:33 Blood - Central Line Blood Culture - Preliminary No growth after 48 hours. 07/20/20 14:44 Blood - Central Line Blood Culture - Preliminary No growth after 48 hours. 07/18/20 Unknown Urine clean catch - Clean Catch Midstream Urine Culture - Final Nevaeh albicans Assessment and Plan (1) Liver cirrhosis: Status: Acute (2) TREMAYNE (acute kidney injury): Problem details: 70-year-old male past medical history as above including cirrhosis which appears relatively compensated ,complaining of diarrhea as well as poor oral intake found to have severe ANURIC TREMAYNE and metabolic acidosis now HD dependent Anuric Acute 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: s/p HD started 07/03 Seen on HD AM; Midodrine 20 mg tid continue HD support and tap ascites as needed (outpt HD spot at [place] unit TTS 1) Shall follow up ; Poor prognosis Status: Acute (3) ESRD (end stage renal disease) on dialysis: Status: Acute (4) Adult failure to thrive: Status: Acute (5) Fever: Status: Acute (6) Anemia in chronic kidney disease: Status: Acute (7) Type 2 diabetes mellitus with diabetic nephropathy: Status: Acute Assessment and Plan: hospital d#7 70yo M with cirrhosis with ascites, DM2, anemia, severe malnutrition recent admission 06/30-07/14/20 for anuric TREMAYNE with AGMA/NAGMA progressing to HD dependence 07/03/20 with hepatorenal syndrome, obstructive uropathy without hydronephrosis s/p bilateral ureteral stents re-admitted from SNF due to lethargy, decreased PO, FTT, gross hematuria in Ch, abdominal discomfort, fever fever, ?source- no evidence of SBP - BCx negative to date - UCx growing only yeast so far- colonizer? - ?line infection- will send BCx from dialysis catheter [not done yet] had 5 days empiric ceftriaxone monitor off antibiotics, no further fevers hematuria Urology consult 3AKI->ESRD/HD dependence blood perssure boderline and flactuating , asymptomatic . d/w nephro-did not receive midodrine since yesterdayand HD might contributed. midodrine, sodium bicarbonate,continue HD as per Nephrology. anemia of chronic disease- Hb flauctuating 6.9 today, but refused transfusion will continue to moniter . cirrhosis- previous taps-no evidence of SBP, or malignancy DM with hypoglcyemia monitor FTT/moderate protein-calorie malnutrition- Ensure, treat medical issues as above. still wants continue treatment check ct triple phase for hcc depression/sI: sitter care team eval will need bhn eval [place] discharge VTE ppx- SCDs
[2020-07-25 11:48] LABS: Glucose, Whole Blood 114 mg/dL (60-115)
[2020-07-25] MEDS: Dextrose 5 % and Lactated Ring 1,000 ML 50 ML IVCONT (11:57)
--- NOTE | 2020-07-25 12:44 | PM.PNNEP ---
Subjective Subjective Date of Service: 07/25/20 Interval history: Events noted. All recent data reviewed Physical Exam Vital Signs: Vital Signs: Last Vital Signs Temp 97.1 F 07/25/20 11:57 Pulse 97 07/25/20 11:57 Resp 18 07/25/20 11:57 BP 91/56 L 07/25/20 11:57 Pulse Ox 97 07/25/20 11:57 Body Mass Index 21.9 Const: Other: Cachectic Neck: Neck: Yes supple Resp: Auscultation: diminished lung sounds Cardio: Rate: regular rate GI: Other: Ascites + Neuro: General: moves all extremities Objective Data Labs CBC & Chem 7: 07/25/20 06:22 07/25/20 06:22 Labs: Laboratory Results - last 24 hr 07/24/20 07/24/20 07/24/20 16:13 17:59 20:12 WBC RBC Hgb Hct MCV MCH MCHC RDW Plt Count MPV Immature Gran % (Auto) Neut % (Auto) Lymph % (Auto) [place] % (Auto) Eos % (Auto) Baso % (Auto) Lymph # (Auto) [place] # (Auto) Eos # (Auto) Baso # (Auto) Abs Immat Gran (auto) Absolute Neuts (auto) Absolute Nucleated RBC Nucleated RBC % (auto) Smear Tech's Comments Sodium Potassium Chloride Carbon Dioxide Anion Gap BUN Creatinine Estim Creat Clear Calc Estimated GFR POC Glucose 55 L* 151 H 112 Fasting Glucose Calcium Blood Type Antibody Screen Crossmatch 07/25/20 07/25/20 07/25/20 06:22 06:22 07:09 WBC 10.6 RBC 2.34 L Hgb 6.9 L* Hct 20.4 L* MCV 87.2 MCH 29.5 MCHC 33.8 RDW 22.1 H Plt Count 94 L MPV 10.2 Immature Gran % (Auto) 0.4 Neut % (Auto) 78.3 H Lymph % (Auto) 10.9 L [place] % (Auto) 7.7 Eos % (Auto) 2.1 Baso % (Auto) 0.6 Lymph # (Auto) 1.2 [place] # (Auto) 0.8 Eos # (Auto) 0.2 Baso # (Auto) 0.1 Abs Immat Gran (auto) 0.04 H Absolute Neuts (auto) 8.3 Absolute Nucleated RBC 0.000 Nucleated RBC % (auto) 0.0 Smear Tech's Comments VERIFIED Sodium 138 Potassium 2.7 L Chloride 105 Carbon Dioxide 21 L Anion Gap 15 BUN 7 L Creatinine 2.92 H Estim Creat Clear Calc 19.8 Estimated GFR 22 POC Glucose 109 Fasting Glucose 112 H Calcium 8.4 Blood Type Antibody Screen Crossmatch 07/25/20 07/25/20 08:38 11:28 WBC RBC Hgb Hct MCV MCH MCHC RDW Plt Count MPV Immature Gran % (Auto) Neut % (Auto) Lymph % (Auto) [place] % (Auto) Eos % (Auto) Baso % (Auto) Lymph # (Auto) [place] # (Auto) Eos # (Auto) Baso # (Auto) Abs Immat Gran (auto) Absolute Neuts (auto) Absolute Nucleated RBC Nucleated RBC % (auto) Smear Tech's Comments Sodium Potassium Chloride Carbon Dioxide Anion Gap BUN Creatinine Estim Creat Clear Calc Estimated GFR POC Glucose 114 Fasting Glucose Calcium Blood Type O Positive Antibody Screen NEGATIVE Crossmatch See Detail Microbiology Microbiology Results: Microbiology 07/23/20 15:17 Abdominal Fluid Gram Stain - Final 07/23/20 15:17 Abdominal Fluid Routine Culture - Final No growth after 2 days 07/23/20 15:17 Abdominal Fluid Anaerobic Culture - Preliminary No growth to date. 07/18/20 10:54 Blood - Venous Blood Culture - Final No growth after 5 days. 07/18/20 10:41 Blood - Venous Blood Culture - Final No growth after 5 days. 07/18/20 13:34 Abdominal Fluid Gram Stain - Final 07/18/20 13:34 Abdominal Fluid Anaerobic Culture - Final NO GROWTH AFTER 5 DAYS 07/18/20 13:34 Abdominal Fluid Body Fluid Culture - Final No growth after 2 days 07/20/20 14:33 Blood - Central Line Blood Culture - Preliminary No growth after 48 hours. 07/20/20 14:44 Blood - Central Line Blood Culture - Preliminary No growth after 48 hours. 07/18/20 Unknown Urine clean catch - Clean Catch Midstream Urine Culture - Final Nevaeh albicans Assessment & Plan Assessment and plan (1) TREMAYNE (acute kidney injury): Problem details: 70-year-old male past medical history as above including cirrhosis which appears relatively compensated ,complaining of diarrhea as well as poor oral intake found to have severe ANURIC TREMAYNE and metabolic acidosis now HD dependent Anuric Acute 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: s/p HD started 07/03 Seen AM; Midodrine 20 mg tid; Needs K to be over 4 continue HD support and tap ascites as needed (outpt HD spot at [place] unit TTS 1) Shall follow up ; Poor prognosis Status: Acute Time Spent With Patient Time: Total time spent is greater than 50% in coordination of care (as documented) at patient's floor/unit and/or counseling patient:
--- NOTE | 2020-07-25 13:57 | MHC.CM.PN ---
NURSE CYBER SECURITY ARCHITECT NOTE ELECTRONIC MEDICAL RECORD REVIEWED ALONG WITH CASE DISCUSSED WITH [facility] NURSE AND ON MULTIPLE DISCIPLINARY ROUNDS. PATIENT IS ESRD/HEMO-0DIALYSIS DEPENDENCE HGB/HCT FLAUCATING PATIENT REFUSING BLOOD TRANSFUSIONS CONTINUE TO MONITOR ,REMAINS OFF ANTIBIOTIC AND OBSERVING, PATIENT NOTED DEPRESSION, HAS SITTER SECONDARY TO [facility] EVALUATION BEFORE DISCHARGE PER HOSPITLAIST PATIENT GOING BACK AND FORTH HE DOES NOT WANT HOSPICE AND BOT SURE IF HE WANT TO CONTINUES
[2020-07-25] MEDS: Potassium Chloride/H20 10 MEQ/100 ML PIGGYBACK 100 MEQ IV ×5 (14:47→22:58)
[2020-07-25 16:26] LABS: Glucose, Whole Blood 117 mg/dL (60-115)
[2020-07-25] MEDS: 0.9 % Sodium Chloride Flush 3 ML SYRINGE IVFLUSH ×2 (16:56→21:06)
[2020-07-25] MEDS: Midodrine HCl 10 MG TABLET 20 MG PO (16:59)
--- NOTE | 2020-07-25 18:18 | PC.NURSE ---
Pt refused po meds all day but agreed to his 1700 midodrine. Pt refused blood transfusion this morning. Dr Motley aware of the refusal. Pt refused breakfast and lunch but had some of his dinner. At 1745 pt asked to discuss transfusion process after speaking to his brother. explained procedure and pt is now agreeable to have transfusion. Permit obtained
[2020-07-25 20:51] LABS: Glucose, Whole Blood 139 mg/dL (60-115)
[2020-07-25] MEDS: Nystatin Cream 15 GM TUBE 1 APPL TOPICAL (23:02)
[2020-07-26] MEDS: Potassium Chloride/H20 10 MEQ/100 ML PIGGYBACK 100 MEQ IV ×2 (00:04→01:05)
[2020-07-26 00:05] VITALS: BP 108/61; PULSE 85; RESP 18; TEMP 36.4; O2SAT 98
[2020-07-26] MEDS: Potassium Chloride/H20 10 MEQ/100 ML PIGGYBACK IV (02:08)
[2020-07-26 04:22] VITALS: BP 95/50; PULSE 89; RESP 18; TEMP 36.5; O2SAT 97
[2020-07-26] MEDS: Dextrose 5 % and Lactated Ring 1,000 ML 50 ML IVCONT ×2 (04:29→22:34)
[2020-07-26 07:03] LABS: Hemoglobin 7.9 g/dl (14.0-18.0); Imm Gran Abs Auto 0.05 X10*3/uL (0.00-0.03); Imm Gran Pct Auto 0.5 % (0.0-0.4); Lymphocytes Absolute Auto 1.1 X10*3/uL (1.2-4.9); MANUAL DIFF FLAG SCAN; Mean Corpuscular Hemoglobin 29.9 pg (27.0-33.0); Mean Platelet Volume 10.5 fL (9.4-12.4); NRBC Pct Auto 0.2 /100WBC (0.0-0.2); PLT CLUMP 1; Red Blood Count 2.64 X10*6/uL (4.60-5.80); SCAN SMEAR FLAG 1
[2020-07-26 07:05] LABS: Basophils Absolute Auto 0.1 X10*3/uL (0.0-0.2); Basophils Percent Auto 0.8 % (0-2); Eosinophils Absolute Auto 0.2 X10*3/uL (0.0-0.4); Lymphocytes Percent Auto 10.6 % (20-40); Mean Corpuscular HGB Conc 34.3 g/dl (31.0-36.0); Mean Corpuscular Volume 87.1 fL (80-98); Monocytes Absolute Auto 0.8 X10*3/uL (0.1-1.2); Monocytes Percent Auto 7.9 % (2-11); Neutrophils Absolute Auto 8.1 X10*3/uL (2.0-8.3); Neutrophils Percent Auto 78.2 % (45-73); Platelet Count 111 X10*3/uL (160-400); Red Cell Distribution Width 21.3 % (11.0-16.0); White Blood Count 10.3 X10*3/uL (4.8-10.8)
[2020-07-26 07:17] LABS: SLIDE REVIEW VERIFIED
[2020-07-26 07:23] LABS: Anion Gap 14 (12-20); Blood Urea Nitrogen 14 mg/dL (9-16); Calcium 8.8 mg/dL (8.4-10.2); Carbon Dioxide 20 mmol/L (22-29); Chloride 106 mmol/L (96-108); Creatinine Clr Calc Pharmacy 14.9; Estimated Glomerular Filt Rate 16; Glucose Fasting 138 mg/dL (60-99); Potassium 3.9 mmol/L (3.3-5.1); Sodium 136 mmol/L (135-145)
[2020-07-26 07:35] VITALS: BP 105/56; PULSE 89; RESP 18; TEMP 37.2; O2SAT 99
[2020-07-26] MEDS: 0.9 % Sodium Chloride Flush 3 ML SYRINGE IVFLUSH ×3 (08:11→21:08)
[2020-07-26] MEDS: Midodrine HCl 10 MG TABLET 20 MG PO ×2 (08:11→13:21)
[2020-07-26] MEDS: Nystatin Cream 15 GM TUBE 1 APPL TOPICAL ×2 (08:12→22:34)
--- NOTE | 2020-07-26 12:56 | P.PNIM_ITS ---
Subjective Subjective Date of Service: 07/26/20 Interval History: weak, no appetite Cardiovascular Cardiovascular: Reports no additional cardiovascular complaints Gastrointestinal Gastrointestinal: Reports no additional gastrointestinal complaints Physical Exam Vital Signs: Vital Signs: Last Vital Signs Temp 99.0 F 07/26/20 07:35 Pulse 89 07/26/20 07:35 Resp 18 07/26/20 07:35 BP 105/56 L 07/26/20 07:35 Pulse Ox 99 07/26/20 07:35 Body Mass Index 21.9 General: lethargic, oriented times 3, ill appearing Resp: dminished CVS: S1,S2,RRR GI: soft, non tender, more distended today, not tense Neuro: motor grossly weak Psych: appropriate affect Objective Data Current Medications Generic Name Dose Route Start Last Admin Trade Name Shahzadq PRN Reason Stop Dose Admin Ascorbic Acid 500 mg 07/19/20 09:00 07/26/20 09:39 Ascorbic Acid 500 Mg Tablet PO Not Given DAILY [facility] Atorvastatin Calcium 40 mg 07/18/20 21:00 07/25/20 21:10 Atorvastatin Calcium 40 Mg Tablet PO Not Given BEDTIME [facility] Ferrous Sulfate 324 mg 07/19/20 09:00 07/25/20 10:21 Ferrous Sulfate 324 Mg Tablet. PO Not Given DAILY [facility] Dextrose/Lactated Ringer's 1,000 mls @ 50 mls/hr 07/24/20 17:00 07/26/20 04:29 D5lr IVCONT 50 mls/hr .Q20H ROJAS Administration Midodrine 20 mg 07/19/20 08:00 07/26/20 08:11 Midodrine Hcl 10 Mg Tablet PO 20 mg TIDWM [facility] Administration Mirtazapine 7.5 mg 07/18/20 21:00 07/25/20 21:10 Mirtazapine 7.5 Mg Tablet PO Not Given BEDTIME [facility] Nystatin 1 appl 07/18/20 21:00 07/26/20 08:12 Nystatin Cream 15 Gm Tube TOPICAL 1 appl BID [facility] Administration Protocol Omeprazole 40 mg 07/19/20 06:30 07/26/20 05:52 Omeprazole 40 Mg Capsule. PO Not Given BID@0630,1630 [facility] Ondansetron HCl 4 mg 07/18/20 18:17 07/21/20 11:34 Ondansetron Hcl 4 Mg/2 Ml Vial IVPUSH 4 mg Q8H PRN Administration Nausea and Vomiting Pharmacy Consult 1 each 07/18/20 09:22 Consult Rx Perform Med Rec MISCELLANE ONCE PRN Consult order Sodium Bicarbonate 650 mg 07/18/20 21:00 07/26/20 09:39 Sodium Bicarbonate 650 Mg Tablet PO Not Given TID [facility] Sodium Chloride 3 ml 07/18/20 18:17 07/26/20 08:11 0.9 % Sodium Chloride Flush 3 Ml Syringe IVFLUSH 3 ml QSHIFT [facility] Administration Sucralfate 1 gm 07/18/20 18:17 07/26/20 09:39 Sucralfate Oral Suspension 1 Gm/10 Ml Oral.Susp PO Not Given QIDACHS [facility] Tamsulosin HCl 0.4 mg 07/18/20 21:00 07/25/20 21:10 Tamsulosin Hcl 0.4 Mg Capsule PO Not Given BEDTIME [facility] Vitamin D 50 mcg 07/19/20 09:00 07/26/20 09:39 Cholecalciferol (Vitamin D3) 25 Mcg Tablet PO Not Given DAILY [facility] Labs CBC & Chem 7: 07/26/20 06:28 07/26/20 06:28 Microbiology Microbiology Results: Microbiology 07/23/20 15:17 Abdominal Fluid Gram Stain - Final 07/23/20 15:17 Abdominal Fluid Routine Culture - Final No growth after 2 days 07/23/20 15:17 Abdominal Fluid Anaerobic Culture - Preliminary No growth to date. 07/20/20 14:44 Blood - Central Line Blood Culture - Final No growth after 5 days. 07/20/20 14:33 Blood - Central Line Blood Culture - Final No growth after 5 days. 07/18/20 10:54 Blood - Venous Blood Culture - Final No growth after 5 days. 07/18/20 10:41 Blood - Venous Blood Culture - Final No growth after 5 days. 07/18/20 13:34 Abdominal Fluid Gram Stain - Final 07/18/20 13:34 Abdominal Fluid Anaerobic Culture - Final NO GROWTH AFTER 5 DAYS 07/18/20 13:34 Abdominal Fluid Body Fluid Culture - Final No growth after 2 days 07/18/20 Unknown Urine clean catch - Clean Catch Midstream Urine Culture - Final Nevaeh albicans Assessment and Plan (1) Liver cirrhosis: Status: Acute (2) TREMAYNE (acute kidney injury): Problem details: 70-year-old male past medical history as above including cirrhosis which appears relatively compensated ,complaining of diarrhea as well as poor oral intake found to have severe ANURIC TREMAYNE and metabolic acidosis now HD dependent Anuric Acute 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: s/p HD started 07/03 Seen AM; Midodrine 20 mg tid; Needs K to be over 4 continue HD support and tap ascites as needed (outpt HD spot at [place] unit TTS 1) Shall follow up ; Poor prognosis Status: Acute (3) ESRD (end stage renal disease) on dialysis: Status: Acute (4) Adult failure to thrive: Status: Acute (5) Fever: Status: Acute (6) Anemia in chronic kidney disease: Status: Acute (7) Type 2 diabetes mellitus with diabetic nephropathy: Status: Acute Assessment and Plan: hospital d#7 70yo M with cirrhosis with ascites, DM2, anemia, severe malnutrition recent admission 06/30-07/14/20 for anuric TREMAYNE with AGMA/NAGMA progressing to HD dependence 07/03/20 with hepatorenal syndrome, obstructive uropathy without hydronephrosis s/p bilateral ureteral stents re-admitted from SNF due to lethargy, decreased PO, FTT, gross hematuria in Ch, abdominal discomfort, fever fever, ?source- no evidence of SBP - BCx negative to date - UCx growing only yeast so far- colonizer? - ?line infection- will send BCx from dialysis catheter [not done yet] had 5 days empiric ceftriaxone monitoring off antibiotics, no further fevers hematuria Urology consult 3AKI->ESRD/HD dependence blood perssure boderline and flactuating , asymptomatic . d/w nephro-did not receive midodrine since yesterdayand HD might contributed. midodrine, sodium bicarbonate,continue HD as per Nephrology. anemia of chronic disease- Hb flauctuating transfused 1 unit 07/24/20, hgb improved appropriately from 6.9 to 7.9 will continue to moniter FTT/moderate protein-calorie malnutrition- Ensure cirrhosis- previous taps-no evidence of SBP, or malignancy has right portal vein thrombosis, unable to tolerate anticoagulation may need therpeutic tap on tuesday rule out hcc, AFP, plan for MRI prior to HD on tuesday DM with hypoglcyemia monitor depression/sI: sitter care team eval will need bhn eval febore discharge VTE ppx- SCDs
[2020-07-26] MEDS: Sucralfate Oral Suspension 1 GM/10 ML ORAL.SUSP PO (13:22)
[2020-07-26 13:42] LABS: Glucose, Whole Blood 142 mg/dL (60-115)
[2020-07-26 14:59] VITALS: BP 118/70; PULSE 105; RESP 20; TEMP 36.6; O2SAT 100
[2020-07-26 23:31] VITALS: BP 84/56; PULSE 92; RESP 16; TEMP 36.1; O2SAT 98
[2020-07-27] VITALS (7 sets, daily range): BP systolic 86–104; BP diastolic 42–61; PULSE 96–100; RESP 16–20; TEMP 36.1–37.2; O2SAT 96–99
--- NOTE | 2020-07-27 00:42 | PC.NURSE ---
pt bp-84/56p-92 notified ordered to elevate legs.
--- NOTE | 2020-07-27 00:45 | PC.NURSE ---
pt is refused poc and 2200 medications
[2020-07-27 06:24] LABS: MANUAL DIFF FLAG NO
[2020-07-27 06:49] LABS: Anion Gap 19 (12-20); Basophils Absolute Auto 0.1 X10*3/uL (0.0-0.2); Basophils Percent Auto 0.9 % (0-2); Blood Urea Nitrogen 10 mg/dL (9-16); Carbon Dioxide 19 mmol/L (22-29); Chloride 103 mmol/L (96-108); Creatinine Clr Calc Pharmacy 19.2; Eosinophils Absolute Auto 0.1 X10*3/uL (0.0-0.4); Estimated Glomerular Filt Rate 21; Glucose Fasting 163 mg/dL (60-99); Hematocrit 25.4 % (42-52); Hemoglobin 8.4 g/dl (14.0-18.0); Imm Gran Abs Auto 0.04 X10*3/uL (0.00-0.03); Imm Gran Pct Auto 0.4 % (0.0-0.4); Lymphocytes Percent Auto 10.7 % (20-40); Mean Corpuscular HGB Conc 33.1 g/dl (31.0-36.0); Mean Corpuscular Hemoglobin 29.2 pg (27.0-33.0); Mean Corpuscular Volume 88.2 fL (80-98); Monocytes Absolute Auto 0.7 X10*3/uL (0.1-1.2); Monocytes Percent Auto 7.8 % (2-11); NRBC Pct Auto 0.4 /100WBC (0.0-0.2); Neutrophils Absolute Auto 7.4 X10*3/uL (2.0-8.3); Neutrophils Percent Auto 79.2 % (45-73); Platelet Count 124 X10*3/uL (160-400); Potassium 4.2 mmol/L (3.3-5.1); Red Blood Count 2.88 X10*6/uL (4.60-5.80); Red Cell Distribution Width 21.8 % (11.0-16.0); Sodium 137 mmol/L (135-145); White Blood Count 9.4 X10*3/uL (4.8-10.8)
[2020-07-27 07:47] LABS: Glucose, Whole Blood 160 mg/dL (60-115)
[2020-07-27] MEDS: Midodrine HCl 10 MG TABLET 20 MG PO ×3 (08:21→17:35)
[2020-07-27] MEDS: 0.9 % Sodium Chloride Flush 3 ML SYRINGE IVFLUSH ×2 (08:21→14:44)
[2020-07-27] MEDS: Nystatin Cream 15 GM TUBE 1 APPL TOPICAL (08:25)
--- NOTE | 2020-07-27 11:06 | P.PNNP_ITS ---
Subjective Subjective Date of Service: 07/27/20 Interval history: Doing poorly. Not eating. Cachectic Physical Exam Vital Signs: Vital Signs: Last Vital Signs Temp 97.5 F 07/27/20 04:58 Pulse 100 07/27/20 09:00 Resp 18 07/27/20 09:00 BP 96/55 L 07/27/20 09:00 Pulse Ox 99 07/27/20 09:00 Body Mass Index 21.9 Const: General: No acute distress Neck: Neck: Yes supple Resp: Auscultation: diminished lung sounds Cardio: Rate: regular rate GI: Other: Ascites + Neuro: General: moves all extremities Objective Data Labs CBC & Chem 7: 07/27/20 06:12 07/27/20 06:12 Labs: Laboratory Results - last 24 hr 07/26/20 07/27/20 07/27/20 07:58 06:12 06:12 WBC 9.4 RBC 2.88 L Hgb 8.4 L Hct 25.4 L MCV 88.2 MCH 29.2 MCHC 33.1 RDW 21.8 H Plt Count 124 L MPV 12.0 Immature Gran % (Auto) 0.4 Neut % (Auto) 79.2 H Lymph % (Auto) 10.7 L [place] % (Auto) 7.8 Eos % (Auto) 1.0 Baso % (Auto) 0.9 Lymph # (Auto) 1.0 L [place] # (Auto) 0.7 Eos # (Auto) 0.1 Baso # (Auto) 0.1 Abs Immat Gran (auto) 0.04 H Absolute Neuts (auto) 7.4 Absolute Nucleated RBC 0.040 H Nucleated RBC % (auto) 0.4 H Sodium 137 Potassium 4.2 Chloride 103 Carbon Dioxide 19 L Anion Gap 19 BUN 10 Creatinine 3.02 H Estim Creat Clear Calc 19.2 Estimated GFR 21 POC Glucose 142 H Fasting Glucose 163 H Calcium 9.0 07/27/20 07:20 WBC RBC Hgb Hct MCV MCH MCHC RDW Plt Count MPV Immature Gran % (Auto) Neut % (Auto) Lymph % (Auto) [place] % (Auto) Eos % (Auto) Baso % (Auto) Lymph # (Auto) [place] # (Auto) Eos # (Auto) Baso # (Auto) Abs Immat Gran (auto) Absolute Neuts (auto) Absolute Nucleated RBC Nucleated RBC % (auto) Sodium Potassium Chloride Carbon Dioxide Anion Gap BUN Creatinine Estim Creat Clear Calc Estimated GFR POC Glucose 160 H Fasting Glucose Calcium Microbiology Microbiology Results: Microbiology 07/23/20 15:17 Abdominal Fluid Gram Stain - Final 07/23/20 15:17 Abdominal Fluid Routine Culture - Final No growth after 2 days 07/23/20 15:17 Abdominal Fluid Anaerobic Culture - Preliminary No growth to date. 07/20/20 14:44 Blood - Central Line Blood Culture - Final No growth after 5 days. 07/20/20 14:33 Blood - Central Line Blood Culture - Final No growth after 5 days. 07/18/20 10:54 Blood - Venous Blood Culture - Final No growth after 5 days. 07/18/20 10:41 Blood - Venous Blood Culture - Final No growth after 5 days. 07/18/20 13:34 Abdominal Fluid Gram Stain - Final 07/18/20 13:34 Abdominal Fluid Anaerobic Culture - Final NO GROWTH AFTER 5 DAYS 07/18/20 13:34 Abdominal Fluid Body Fluid Culture - Final No growth after 2 days 07/18/20 Unknown Urine clean catch - Clean Catch Midstream Urine Culture - Final Nevaeh albicans Assessment & Plan Assessment and plan (1) TREMAYEN (acute kidney injury): Problem details: 70-year-old male past medical history as above including cirrhosis which appears relatively compensated ,complaining of diarrhea as well as poor oral intake found to have severe ANURIC TREMAYNE and metabolic acidosis now HD dependent Anuric Acute 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: s/p HD started 3 Seen AM; Midodrine 20 mg tid; Needs K to be over 4 continue HD support and tap ascites as needed (outpt HD spot at [place] unit TTS 1) D/C NaHCO3- could adjust HCO3 in dialysate Shall follow up ; VERY Poor prognosis ? Goals of care Status: Acute Time Spent With Patient Time: Total time spent is greater than 50% in coordination of care (as documented) at patient's floor/unit and/or counseling patient:
[2020-07-27 11:39] LABS: Glucose, Whole Blood 172 mg/dL (60-115)
--- NOTE | 2020-07-27 12:06 | MHC.CM.PN ---
[facility]URN TO FACILITY. CASE MANAGEMENT CONTINUING TO FOLLOW
[2020-07-27] MEDS: Albumin Human 25 % 100 ML IV ×2 (13:38→14:43)
--- NOTE | 2020-07-27 15:19 | HO.PM.IMPN ---
Subjective Subjective Date of Service: 07/30/20 Interval History: In the morning knee was refusing to eat because does not like the hospital food, explained to him he can eat anything he likes to. Could able to take his medications with reinforcement.. Denies any abdominal pain or nausea vomiting has some episode diarrhea as per the staff. No fever or chills or abdominal pain No shortness of breath or chest pain. Physical Exam Vital Signs: Vital Signs: Last Vital Signs Temp 97.5 F 07/27/20 04:58 Pulse 98 07/27/20 12:12 Resp 18 07/27/20 09:00 BP 86/46 L 07/27/20 12:12 Pulse Ox 98 07/27/20 12:12 Body Mass Index 21.9 Physical exam: Constitutional: Not in acute distress. Cvs: [id number], [id number] , no murmur res: clear to auscultation ,no rhonchii or wheezing abd: no rebound or guarding ,nt, bs present. ext pulses present , no cyanosis neuro: nonfocal. Objective Data Current Medications Generic Name Dose Route Start Last Admin Trade Name Shahzadq PRN Reason Stop Dose Admin Ascorbic Acid 500 mg 07/19/20 09:00 07/27/20 08:25 Ascorbic Acid 500 Mg Tablet PO Not Given DAILY [facility] Atorvastatin Calcium 40 mg 07/18/20 21:00 07/26/20 21:07 Atorvastatin Calcium 40 Mg Tablet PO Not Given BEDTIME [facility] Ferrous Sulfate 324 mg 07/19/20 09:00 07/27/20 08:25 Ferrous Sulfate 324 Mg Tablet.Dr PO Not Given DAILY [facility] Dextrose/Lactated Ringer's 1,000 mls @ 50 mls/hr 07/24/20 17:00 07/26/20 22:34 D5lr IVCONT 50 mls/hr .Q20H [facility] Administration Midodrine 20 mg 07/19/20 08:00 07/27/20 12:09 Midodrine Hcl 10 Mg Tablet PO 20 mg TIDWM [facility] Administration Mirtazapine 7.5 mg 07/18/20 21:00 07/26/20 21:07 Mirtazapine 7.5 Mg Tablet PO Not Given BEDTIME [facility] Nystatin 1 appl 07/18/20 21:00 07/27/20 08:25 Nystatin Cream 15 Gm Tube TOPICAL 1 appl BID [facility] Administration Protocol Omeprazole 40 mg 07/19/20 06:30 07/27/20 06:38 Omeprazole 40 Mg Capsule. PO Not Given BID@3678,5120 [facility] Ondansetron HCl 4 mg 07/18/20 18:17 07/21/20 11:34 Ondansetron Hcl 4 Mg/2 Ml Vial IVPUSH 4 mg Q8H PRN Administration Nausea and Vomiting Pharmacy Consult 1 each 07/18/20 09:22 Consult Rx Perform Med Rec MISCELLANE ONCE PRN Consult order Sodium Bicarbonate 650 mg 07/18/20 21:00 07/27/20 14:44 Sodium Bicarbonate 650 Mg Tablet PO Not Given TID [facility] Sodium Chloride 3 ml 07/18/20 18:17 07/27/20 14:44 0.9 % Sodium Chloride Flush 3 Ml Syringe IVFLUSH 3 ml QSHIFT [facility] Administration Sucralfate 1 gm 07/18/20 18:17 07/27/20 12:20 Sucralfate Oral Suspension 1 Gm/10 Ml Oral.Susp PO Not Given QIDACHS [facility] Tamsulosin HCl 0.4 mg 07/18/20 21:00 07/26/20 21:07 Tamsulosin Hcl 0.4 Mg Capsule PO Not Given BEDTIME [facility] Vitamin D 50 mcg 07/19/20 09:00 07/27/20 08:25 Cholecalciferol (Vitamin D3) 25 Mcg Tablet PO Not Given DAILY [facility] Labs CBC & Chem 7: 07/29/20 05:58 07/29/20 05:58 Microbiology Microbiology Results: Microbiology 07/23/20 15:17 Abdominal Fluid Gram Stain - Final 07/23/20 15:17 Abdominal Fluid Routine Culture - Final No growth after 2 days 07/23/20 15:17 Abdominal Fluid Anaerobic Culture - Preliminary No growth to date. 07/20/20 14:44 Blood - Central Line Blood Culture - Final No growth after 5 days. 07/20/20 14:33 Blood - Central Line Blood Culture - Final No growth after 5 days. 07/18/20 10:54 Blood - Venous Blood Culture - Final No growth after 5 days. 07/18/20 10:41 Blood - Venous Blood Culture - Final No growth after 5 days. 07/18/20 13:34 Abdominal Fluid Gram Stain - Final 07/18/20 13:34 Abdominal Fluid Anaerobic Culture - Final NO GROWTH AFTER 5 DAYS 07/18/20 13:34 Abdominal Fluid Body Fluid Culture - Final No growth after 2 days 07/18/20 Unknown Urine clean catch - Clean Catch Midstream Urine Culture - Final Nevaeh albicans Assessment and Plan (1) Liver cirrhosis: Status: Acute (2) ESRD (end stage renal disease) on dialysis: Status: Acute Assessment and Plan: 70yo M with cirrhosis with ascites, DM2, anemia, severe malnutrition recent admission 06/30-07/14/20 for anuric TREMAYNE with AGMA/NAGMA progressing to HD dependence 07/03/20 with hepatorenal syndrome, obstructive uropathy without hydronephrosis s/p bilateral ureteral stents re-admitted from SNF due to lethargy, decreased PO, FTT, gross hematuria in Ch, abdominal discomfort, fever 1.fever, ?source- no evidence of SBP - BCx negative to date - UCx growing only yeast so far- colonizer? - ?line infection- will send BCx from dialysis catheter [not done yet] had 5 days empiric ceftriaxone monitoring off antibiotics, no further fevers 2.hematuria Urology consult 3AKI->ESRD/HD dependence blood perssure boderline and flactuating , asymptomatic . d/w nephro-did not receive midodrine since yesterday and HD might contributed. midodrine, sodium bicarbonate,continue HD as per Nephrology. 4. anemia of chronic disease- Hb flauctuating transfused 1 unit 07/24/20, hgb improved appropriately from 6.9 to 7.9 will continue to moniter 5.FTT/moderate protein-calorie malnutrition- Ensure cirrhosis- previous taps-no evidence of SBP, or malignancy has right portal vein thrombosis, unable to tolerate anticoagulation may need therpeutic tap on tuesday rule out hcc, AFP, plan for MRI prior to HD on tuesday recent ascitis fluid negative path malignant cells . 6.DM with hypoglcyemia: fs in 120-160 range monitor 7.depression/sI: sitter care team eval will need bhn eval before discharge will add psych eval
[2020-07-27] MEDS: ondansetron HCL 4 MG/2 ML VIAL IVPUSH (15:58)
[2020-07-27 16:45] LABS: Glucose, Whole Blood 163 mg/dL (60-115)
[2020-07-27] MEDS: Dextrose 5 % and 0.9 % NaCl 1,000 ML 50 ML IVCONT (20:19)
[2020-07-27] MEDS: Sodium Bicarbonate 650 MG TABLET PO (20:21)
[2020-07-27 20:22] LABS: Glucose, Whole Blood 153 mg/dL (60-115)
[2020-07-27] MEDS: Tamsulosin HCL 0.4 MG CAPSULE PO (20:22)
[2020-07-28] VITALS (9 sets, daily range): BP systolic 90–99; BP diastolic 36–56; PULSE 62–101; RESP 16–18; TEMP 36.1–36.6; O2SAT 94–99
[2020-07-28] MEDS: traMADoL HCL 50 MG TABLET 25 MG PO (01:34)
--- NOTE | 2020-07-28 05:38 | MHC.PIE ---
p; pt c/o pain 12/02 to abd i; dr dorsey notified; new order ultram 25 mg now e; pt asleep in bed, no sign of pain noted. will cont to monitor
[2020-07-28 07:10] LABS: Glucose, Whole Blood 178 mg/dL (60-115)
[2020-07-28 07:13] LABS: Mean Corpuscular HGB Conc 33.5 g/dl (31.0-36.0); Mean Corpuscular Hemoglobin 29.5 pg (27.0-33.0); Mean Corpuscular Volume 88.2 fL (80-98); Mean Platelet Volume 11.1 fL (9.4-12.4); NRBC Pct Auto 0.2 /100WBC (0.0-0.2); Platelet Count 123 X10*3/uL (160-400); Red Blood Count 2.37 X10*6/uL (4.60-5.80); Red Cell Distribution Width 21.8 % (11.0-16.0); White Blood Count 8.4 X10*3/uL (4.8-10.8)
[2020-07-28 07:25] LABS: Hematocrit 20.9 % (42-52)
--- NOTE | 2020-07-28 07:29 | PC.NURSE ---
received critical H&H of 7.[address] Motley. awaiting answer.
[2020-07-28 07:33] LABS: Anion Gap 16 (12-20); Blood Urea Nitrogen 20 mg/dL (9-16); Calcium 8.8 mg/dL (8.4-10.2); Carbon Dioxide 17 mmol/L (22-29); Chloride 107 mmol/L (96-108); Creatinine Clr Calc Pharmacy 14.2; Estimated Glomerular Filt Rate 15; Glucose Random 176 mg/dL (60-115); Potassium 3.4 mmol/L (3.3-5.1); Sodium 137 mmol/L (135-145)
[2020-07-28 12:21] LABS: Alpha Fetoprotein 928.9 ng/mL (<6.1)
--- NOTE | 2020-07-28 13:34 | PC.NURSE ---
Have been trying to coordinate dialysis and MRI all day, finally go ahold of dialysis nurse, Brendon is not having dialysis today according to her. He is getting it tomorrow. Nisha Beltrán Nurse Cephalometric Technician aware, will also inform MRI.
--- NOTE | 2020-07-28 14:43 | HO.PM.IMPN ---
Subjective Subjective Date of Service: 07/28/20 Interval History: refusing to to talk Cardiovascular Cardiovascular: Reports no additional cardiovascular complaints Gastrointestinal Gastrointestinal: Reports no additional gastrointestinal complaints Physical Exam Vital Signs: Vital Signs: Last Vital Signs Temp 97.8 F 07/28/20 12:04 Pulse 62 07/28/20 12:04 Resp 18 07/28/20 12:04 BP 90/54 L 07/28/20 12:04 Pulse Ox 96 07/28/20 12:04 Body Mass Index 21.9 General: lethargic, oriented times 3, ill appearing Resp: diminished CVS: S1,S2,RRR GI: soft, non tender, distended, not tense Neuro: motor grossly weak Psych: appropriate affect Objective Data Current Medications Generic Name Dose Route Start Last Admin Trade Name Freq PRN Reason Stop Dose Admin Ascorbic Acid 500 mg 07/19/20 09:00 07/28/20 08:15 Ascorbic Acid 500 Mg Tablet PO Not Given DAILY [facility] Atorvastatin Calcium 40 mg 07/18/20 21:00 07/27/20 20:29 Atorvastatin Calcium 40 Mg Tablet PO Not Given BEDTIME [facility] Ferrous Sulfate 324 mg 07/19/20 09:00 07/28/20 08:15 Ferrous Sulfate 324 Mg Tablet. PO Not Given DAILY [facility] Dextrose/Sodium Chloride 1,000 mls @ 50 mls/hr 07/27/20 18:45 07/27/20 20:19 D5ns IVCONT 50 mls/hr .Q20H ROJAS Administration Midodrine 20 mg 07/19/20 08:00 07/28/20 13:44 Midodrine Hcl 10 Mg Tablet PO Not Given TIDWM [facility] Mirtazapine 7.5 mg 07/18/20 21:00 07/27/20 20:29 Mirtazapine 7.5 Mg Tablet PO Not Given BEDTIME [facility] Nystatin 1 appl 07/18/20 21:00 07/28/20 08:15 Nystatin Cream 15 Gm Tube TOPICAL Not Given BID [facility] Protocol Omeprazole 40 mg 07/19/20 06:30 07/28/20 06:12 Omeprazole 40 Mg Capsule.Dr PO Not Given BID@0630,1630 [facility] Ondansetron HCl 4 mg 07/18/20 18:17 07/27/20 15:58 Ondansetron Hcl 4 Mg/2 Ml Vial IVPUSH 4 mg Q8H PRN Administration Nausea and Vomiting Pharmacy Consult 1 each 07/18/20 09:22 Consult Rx Perform Med Rec MISCELLANE ONCE PRN Consult order Sodium Bicarbonate 650 mg 07/18/20 21:00 07/28/20 08:15 Sodium Bicarbonate 650 Mg Tablet PO Not Given TID [facility] Sodium Chloride 3 ml 07/18/20 18:17 07/28/20 07:47 0.9 % Sodium Chloride Flush 3 Ml Syringe IVFLUSH Not Given QSHIFT [facility] Sucralfate 1 gm 07/18/20 18:17 07/28/20 13:44 Sucralfate Oral Suspension 1 Gm/10 Ml Oral.Susp PO Not Given QIDACHS [facility] Tamsulosin HCl 0.4 mg 07/18/20 21:00 07/27/20 20:22 Tamsulosin Hcl 0.4 Mg Capsule PO 0.4 mg BEDTIME [facility] Administration Vitamin D 50 mcg 07/19/20 09:00 07/28/20 08:15 Cholecalciferol (Vitamin D3) 25 Mcg Tablet PO Not Given DAILY [facility] Labs CBC & Chem 7: 07/28/20 06:09 07/28/20 06:09 Microbiology Microbiology Results: Microbiology 07/23/20 15:17 Abdominal Fluid Gram Stain - Final 07/23/20 15:17 Abdominal Fluid Routine Culture - Final No growth after 2 days 07/23/20 15:17 Abdominal Fluid Anaerobic Culture - Final NO GROWTH AFTER 5 DAYS 07/20/20 14:44 Blood - Central Line Blood Culture - Final No growth after 5 days. 07/20/20 14:33 Blood - Central Line Blood Culture - Final No growth after 5 days. 07/18/20 10:54 Blood - Venous Blood Culture - Final No growth after 5 days. 07/18/20 10:41 Blood - Venous Blood Culture - Final No growth after 5 days. 07/18/20 13:34 Abdominal Fluid Gram Stain - Final 07/18/20 13:34 Abdominal Fluid Anaerobic Culture - Final NO GROWTH AFTER 5 DAYS 07/18/20 13:34 Abdominal Fluid Body Fluid Culture - Final No growth after 2 days 07/18/20 Unknown Urine clean catch - Clean Catch Midstream Urine Culture - Final Nevaeh albicans Assessment and Plan (1) Liver cirrhosis: Status: Acute (2) ESRD (end stage renal disease) on dialysis: Status: Acute Assessment and Plan: 70yo M with cirrhosis with ascites, DM2, anemia, severe malnutrition recent admission 06/30-07/14/20 for anuric TREMAYNE with AGMA/NAGMA progressing to HD dependence 07/03/20 with hepatorenal syndrome, obstructive uropathy without hydronephrosis s/p bilateral ureteral stents re-admitted from SNF due to lethargy, decreased PO, FTT, gross hematuria in Ch, abdominal discomfort, fever fever, ?source- no evidence of SBP resolved, cultures negative, afebrile off antibiotics TREMAYNE->ESRD/HD dependence midodrine, sodium bicarbonate,continue HD as per Nephrology. anemia of chronic disease- Hb flauctuating transfused 1 unit 07/24/20, hgb improved appropriately from 6.9 to 7.9 7 today, will continue to monitor FTT/moderate protein-calorie malnutrition- Ensure cirrhosis- previous taps-no evidence of SBP, or malignancy has right portal vein thrombosis, unable to tolerate anticoagulation afp supicious for HCC, follow up mri prognosis guarded DM with hypoglcyemia: fs in 120-160 range depression/sI: sitter care team eval psych eval
[2020-07-28] MEDS: 0.9 % Sodium Chloride Flush 3 ML SYRINGE IVFLUSH (15:57)
[2020-07-28] MEDS: Dextrose 5 % and 0.9 % NaCl 1,000 ML 50 ML IVCONT (16:08)
[2020-07-28] MEDS: Midodrine HCl 10 MG TABLET 20 MG PO (16:11)
[2020-07-28 16:32] LABS: Glucose, Whole Blood 139 mg/dL (60-115)
--- NOTE | 2020-07-28 17:01 | P.PNNP_ITS ---
Subjective Subjective Date of Service: 07/29/20 Interval history: refusing to to talk Physical Exam Vital Signs: Vital Signs: Last Vital Signs Temp 97.4 F 07/28/20 15:42 Pulse 62 07/28/20 16:11 Resp 18 07/28/20 15:42 BP 96/36 L 07/28/20 16:11 Pulse Ox 96 07/28/20 15:42 Body Mass Index 21.9 Const: General: no acute distress Neck: Neck: Yes no JVD Resp: Auscultation: diminished lung sounds GI: Inspection: Yes distended Neuro: Motor exam (neuro): no asterixis Objective Data Labs CBC & Chem 7: 07/29/20 05:58 07/29/20 05:58 Labs: Laboratory Results - last 24 hr 07/27/20 07/27/20 07/28/20 06:12 20:18 06:09 WBC 8.4 RBC 2.37 L Hgb 7.0 L* Hct 20.9 L* MCV 88.2 MCH 29.5 MCHC 33.5 RDW 21.8 H Plt Count 123 L MPV 11.1 Absolute Nucleated RBC 0.020 H Nucleated RBC % (auto) 0.2 Sodium Potassium Chloride Carbon Dioxide Anion Gap BUN Creatinine Estim Creat Clear Calc Estimated GFR POC Glucose 153 H Random Glucose Calcium Alpha Fetoprotein 928.9 H 07/28/20 07/28/20 07/28/20 06:09 07:06 16:28 WBC RBC Hgb Hct MCV MCH MCHC RDW Plt Count MPV Absolute Nucleated RBC Nucleated RBC % (auto) Sodium 137 Potassium 3.4 Chloride 107 Carbon Dioxide 17 L Anion Gap 16 BUN 20 H D Creatinine 4.07 H* Estim Creat Clear Calc 14.2 Estimated GFR 15 POC Glucose 178 H 139 H Random Glucose 176 H D Calcium 8.8 Alpha Fetoprotein Microbiology Microbiology Results: Microbiology 07/23/20 15:17 Abdominal Fluid Gram Stain - Final 07/23/20 15:17 Abdominal Fluid Routine Culture - Final No growth after 2 days 07/23/20 15:17 Abdominal Fluid Anaerobic Culture - Final NO GROWTH AFTER 5 DAYS 07/20/20 14:44 Blood - Central Line Blood Culture - Final No growth after 5 days. 07/20/20 14:33 Blood - Central Line Blood Culture - Final No growth after 5 days. 07/18/20 10:54 Blood - Venous Blood Culture - Final No growth after 5 days. 07/18/20 10:41 Blood - Venous Blood Culture - Final No growth after 5 days. 07/18/20 13:34 Abdominal Fluid Gram Stain - Final 07/18/20 13:34 Abdominal Fluid Anaerobic Culture - Final NO GROWTH AFTER 5 DAYS 07/18/20 13:34 Abdominal Fluid Body Fluid Culture - Final No growth after 2 days 07/18/20 Unknown Urine clean catch - Clean Catch Midstream Urine Culture - Final Nevaeh albicans Assessment & Plan Assessment and plan (1) TREMAYNE (acute kidney injury): Problem details: 70-year-old male past medical history as above including cirrhosis which appears relatively compensated ,complaining of diarrhea as well as poor oral intake found to have severe ANURIC TREMAYNE and metabolic acidosis now HD dependent Anuric Acute 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: s/p HD started 07/03 Seen AM; Midodrine 20 mg tid; Needs K to be over 4 continue HD support and tap ascites as needed (outpt HD spot at [place] unit TTS 1) Shall follow up ; VERY Poor prognosis ? Goals of care Status: Acute Time Spent With Patient Time: Total time spent is greater than 50% in coordination of care (as documented) at patient's floor/unit and/or counseling patient:
[2020-07-28 20:26] LABS: Glucose, Whole Blood 171 mg/dL (60-115)
[2020-07-29] VITALS (7 sets, daily range): BP systolic 81–97; BP diastolic 42–56; PULSE 66–107; RESP 16–20; TEMP 35.8–36.5; O2SAT 96–99
[2020-07-29] MEDS: 0.9 % Sodium Chloride Flush 3 ML SYRINGE IVFLUSH ×2 (00:21→17:23)
[2020-07-29 06:21] LABS: Eosinophils Absolute Auto 0.1 X10*3/uL (0.0-0.4); Eosinophils Percent Auto 0.9 % (0-4); LEFT SHIFT? 1; NRBC Pct Auto 0.6 /100WBC (0.0-0.2); PLT CLUMP 1; SCAN SMEAR FLAG 1
[2020-07-29 06:24] LABS: Basophils Absolute Auto 0.1 X10*3/uL (0.0-0.2); Basophils Percent Auto 0.7 % (0-2); Hematocrit 21.5 % (42-52); Hemoglobin 7.2 g/dl (14.0-18.0); Imm Gran Abs Auto 0.03 X10*3/uL (0.00-0.03); Imm Gran Pct Auto 0.3 % (0.0-0.4); Lymphocytes Absolute Auto 1.1 X10*3/uL (1.2-4.9); Lymphocytes Percent Auto 12.5 % (20-40); Mean Corpuscular HGB Conc 33.5 g/dl (31.0-36.0); Mean Corpuscular Hemoglobin 29.5 pg (27.0-33.0); Mean Corpuscular Volume 88.1 fL (80-98); Mean Platelet Volume 11.1 fL (9.4-12.4); Monocytes Absolute Auto 0.6 X10*3/uL (0.1-1.2); Monocytes Percent Auto 6.8 % (2-11); Neutrophils Absolute Auto 6.9 X10*3/uL (2.0-8.3); Neutrophils Percent Auto 78.8 % (45-73); Platelet Count 141 X10*3/uL (160-400); Red Blood Count 2.44 X10*6/uL (4.60-5.80); Red Cell Distribution Width 22.4 % (11.0-16.0); White Blood Count 8.8 X10*3/uL (4.8-10.8)
[2020-07-29 06:30] LABS: MANUAL DIFF FLAG NO
[2020-07-29 06:36] LABS: Anion Gap 18 (12-20); Blood Urea Nitrogen 31 mg/dL (9-16); Calcium 9.3 mg/dL (8.4-10.2); Carbon Dioxide 15 mmol/L (22-29); Chloride 110 mmol/L (96-108); Glucose Fasting 184 mg/dL (60-99); Potassium 3.5 mmol/L (3.3-5.1); Sodium 139 mmol/L (135-145)
[2020-07-29 06:41] LABS: Creatinine Clr Calc Pharmacy 11.6; Estimated Glomerular Filt Rate 12
--- NOTE | 2020-07-29 06:54 | PC.NURSE ---
Addendum entered by Keiko Lowery RN 07/29/20 07:17: hospitalist acknowledged information via text to coworker whom reported and stated, thank you. Original Note: critical value called to floor and answered by rn arnav coworker, romi 4.98. on notified by tiger text by same coworker who took message, awaiting if new orders and will report off to oncoming rn
[2020-07-29 07:46] LABS: Glucose, Whole Blood 183 mg/dL (60-115)
--- NOTE | 2020-07-29 11:54 | P.PNIM_ITS ---
Subjective Subjective Date of Service: 07/29/20 Interval History: wants to be left alone Cardiovascular Cardiovascular: Reports no additional cardiovascular complaints Respiratory Respiratory: Reports no additional respiratory complaints Physical Exam Vital Signs: Vital Signs: Last Vital Signs Temp 97.1 F 07/29/20 09:00 Pulse 66 07/29/20 09:00 Resp 17 07/29/20 09:00 BP 93/54 L 07/29/20 09:00 Pulse Ox 96 07/29/20 09:00 Body Mass Index 21.9 General: lethargic, oriented times 3, ill appearing Resp: diminished CVS: S1,S2,RRR GI: soft, non tender, distended, not tense Neuro: motor grossly weak Psych: appropriate affect Objective Data Current Medications Generic Name Dose Route Start Last Admin Trade Name Freq PRN Reason Stop Dose Admin Ascorbic Acid 500 mg 07/19/20 09:00 07/29/20 08:47 Ascorbic Acid 500 Mg Tablet PO Not Given DAILY [facility] Atorvastatin Calcium 40 mg 07/18/20 21:00 07/28/20 22:00 Atorvastatin Calcium 40 Mg Tablet PO Not Given BEDTIME [facility] Ferrous Sulfate 324 mg 07/19/20 09:00 07/29/20 08:47 Ferrous Sulfate 324 Mg Tablet. PO Not Given DAILY [facility] Dextrose/Sodium Chloride 1,000 mls @ 50 mls/hr 07/27/20 18:45 07/28/20 16:08 D5ns IVCONT 50 mls/hr .Q20H ROJAS Administration Midodrine 20 mg 07/19/20 08:00 07/29/20 11:06 Midodrine Hcl 10 Mg Tablet PO Not Given TIDWM [facility] Mirtazapine 7.5 mg 07/18/20 21:00 07/28/20 22:00 Mirtazapine 7.5 Mg Tablet PO Not Given BEDTIME [facility] Nystatin 1 appl 07/18/20 21:00 07/29/20 08:47 Nystatin Cream 15 Gm Tube TOPICAL Not Given BID [facility] Protocol Omeprazole 40 mg 07/19/20 06:30 07/29/20 06:14 Omeprazole 40 Mg Capsule. PO Not Given BID@0630,1630 [facility] Ondansetron HCl 4 mg 07/18/20 18:17 07/27/20 15:58 Ondansetron Hcl 4 Mg/2 Ml Vial IVPUSH 4 mg Q8H PRN Administration Nausea and Vomiting Pharmacy Consult 1 each 07/18/20 09:22 Consult Rx Perform Med Rec MISCELLANE ONCE PRN Consult order Sodium Bicarbonate 650 mg 07/18/20 21:00 07/29/20 08:47 Sodium Bicarbonate 650 Mg Tablet PO Not Given TID [facility] Sodium Chloride 3 ml 07/18/20 18:17 07/29/20 08:48 0.9 % Sodium Chloride Flush 3 Ml Syringe IVFLUSH Not Given QSHIFT [facility] Sucralfate 1 gm 07/18/20 18:17 07/29/20 11:06 Sucralfate Oral Suspension 1 Gm/10 Ml Oral.Susp PO Not Given QIDACHS [facility] Tamsulosin HCl 0.4 mg 07/18/20 21:00 07/28/20 22:02 Tamsulosin Hcl 0.4 Mg Capsule PO Not Given BEDTIME [facility] Vitamin D 50 mcg 07/19/20 09:00 07/29/20 08:47 Cholecalciferol (Vitamin D3) 25 Mcg Tablet PO Not Given DAILY [facility] Labs CBC & Chem 7: 07/29/20 05:58 07/29/20 05:58 Microbiology Microbiology Results: Microbiology 07/23/20 15:17 Abdominal Fluid Gram Stain - Final 07/23/20 15:17 Abdominal Fluid Routine Culture - Final No growth after 2 days 07/23/20 15:17 Abdominal Fluid Anaerobic Culture - Final NO GROWTH AFTER 5 DAYS 07/20/20 14:44 Blood - Central Line Blood Culture - Final No growth after 5 days. 07/20/20 14:33 Blood - Central Line Blood Culture - Final No growth after 5 days. 07/18/20 10:54 Blood - Venous Blood Culture - Final No growth after 5 days. 07/18/20 10:41 Blood - Venous Blood Culture - Final No growth after 5 days. 07/18/20 13:34 Abdominal Fluid Gram Stain - Final 07/18/20 13:34 Abdominal Fluid Anaerobic Culture - Final NO GROWTH AFTER 5 DAYS 07/18/20 13:34 Abdominal Fluid Body Fluid Culture - Final No growth after 2 days 07/18/20 Unknown Urine clean catch - Clean Catch Midstream Urine Culture - Final Nevaeh albicans Assessment and Plan (1) Liver cirrhosis: Status: Acute (2) ESRD (end stage renal disease) on dialysis: Status: Acute Assessment and Plan: 70yo M with cirrhosis with ascites, DM2, anemia, severe malnutrition recent admission 06/30-07/14/20 for anuric TREMAYNE with AGMA/NAGMA progressing to HD dependence 07/03/20 with hepatorenal syndrome, obstructive uropathy without hydronephrosis s/p bilateral ureteral stents re-admitted from SNF due to lethargy, decreased PO, FTT, gross hematuria in Ch, abdominal discomfort, fever fever, ?source- no evidence of SBP resolved, cultures negative, afebrile off antibiotics TREMAYNE->ESRD/HD dependence midodrine, sodium bicarbonate,continue HD as per Nephrology. anemia of chronic disease- Hb flauctuating transfused 1 unit 07/24/20, hgb improved appropriately from 6.9 to 7.9 7.2 today, will continue to monitor FTT/moderate protein-calorie malnutrition- Ensure cirrhosis- previous taps-no evidence of SBP, or malignancy has right portal vein thrombosis, unable to tolerate anticoagulation afp supicious for HCC, follow up mri prognosis guarded DM with hypoglcyemia: fs in 120-160 range depression/sI: sitter care team eval psych eval see ACP note
--- NOTE | 2020-07-29 11:56 | W.MHC.ACPN ---
Advanced Care Planning Note Advanced Care Planning Note Time spent (in minutes): 22 Narrative: discussed with patient at bedside, son over phone, and brother at bedside. we discussed diagnoses of liver cirrhosis, possible HCC and ESRD. we discussed patients continued decline, anorexia, and grave prognosis. patient himself does not give clear direction of goals of care, but says he wants to be left alone and not bothered about how much he is eating. son and brother are leaning towards hospice at home, they are requesting informational. Problems Discussed (1) Liver cirrhosis: (2) ESRD (end stage renal disease) on dialysis:
--- NOTE | 2020-07-29 13:54 | HO.WOUNDCONS ---
History of Present Illness Data of Consult Service Date: 07/29/20 Requesting physician: Kimi Espinosa Primary Care Provider: Sony Munoz MD HPI Reason for consult: buttocks wounds 70-year-old male who comes to [facility] am see from a subacute facility with acute kidney injury which progressed to end-stage renal disease now requiring hemodialysis. He is a diabetic patient. He has hepatomegaly and cirrhosis. Hepatic failure contributes to severe malnutrition and coagulopathy. He has anemia of chronic disease and diarrhea causing dehydration. Were asked to look at the ?pressure sore? on the buttocks. Note that the patient was seen after exiting the MRI scanner. He will then be proceeding directly to hemodialysis. Review of Systems Review of Systems: Complains of back pain, worse with mobility. No shortness of breath. 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 Type 2 diabetes mellitus with hyperglycemia Weakness Family History Father Diabetes Mother Breast cancer Diabetes Cardiovascular disease Brother Diabetes Sister Diabetes Surgical History History of liver biopsy Social History Household Members: Family Housing: Apartment Alcohol intake: former Smoking Status: Former smoker Tobacco Type: Cigarette Packs Per Day: 2 Cigarettes Per Day: 40.0 Second Hand Smoke Exposure: No Advance Directives Date on File: 07/18/20 service: No Current occupational status: retired Meds Allergies Allergy/AdvReac Type Severity Reaction Status Date / Time No Known Allergies Allergy Verified 05/26/20 10:49 Active Medications: Current Medications Generic Name Dose Route Start Last Admin Trade Name Freq PRN Reason Stop Dose Admin Ascorbic Acid 500 mg 07/19/20 09:00 07/29/20 08:47 Ascorbic Acid 500 Mg Tablet PO Not Given DAILY [facility] Atorvastatin Calcium 40 mg 07/18/20 21:00 07/28/20 22:00 Atorvastatin Calcium 40 Mg Tablet PO Not Given BEDTIME [facility] Ferrous Sulfate 324 mg 07/19/20 09:00 07/29/20 08:47 Ferrous Sulfate 324 Mg Tablet. PO Not Given DAILY [facility] Dextrose/Sodium Chloride 1,000 mls @ 50 mls/hr 07/27/20 18:45 07/29/20 12:06 D5ns IVCONT Not Given .Q20H [facility] Midodrine 20 mg 07/19/20 08:00 07/29/20 11:06 Midodrine Hcl 10 Mg Tablet PO Not Given TIDWM [facility] Mirtazapine 7.5 mg 07/18/20 21:00 07/28/20 22:00 Mirtazapine 7.5 Mg Tablet PO Not Given BEDTIME [facility] Nystatin 1 appl 07/18/20 21:00 07/29/20 08:47 Nystatin Cream 15 Gm Tube TOPICAL Not Given BID [facility] Protocol Omeprazole 40 mg 07/19/20 06:30 07/29/20 06:14 Omeprazole 40 Mg Capsule. PO Not Given BID@0630,1630 [facility] Ondansetron HCl 4 mg 07/18/20 18:17 07/27/20 15:58 Ondansetron Hcl 4 Mg/2 Ml Vial IVPUSH 4 mg Q8H PRN Administration Nausea and Vomiting Pharmacy Consult 1 each 07/18/20 09:22 Consult Rx Perform Med Rec MISCELLANE ONCE PRN Consult order Sodium Bicarbonate 650 mg 07/18/20 21:00 07/29/20 08:47 Sodium Bicarbonate 650 Mg Tablet PO Not Given TID [facility] Sodium Chloride 3 ml 07/18/20 18:17 07/29/20 08:48 0.9 % Sodium Chloride Flush 3 Ml Syringe IVFLUSH Not Given QSHIFT [facility] Sucralfate 1 gm 07/18/20 18:17 07/29/20 11:06 Sucralfate Oral Suspension 1 Gm/10 Ml Oral.Susp PO Not Given QIDACHS [facility] Tamsulosin HCl 0.4 mg 07/18/20 21:00 07/28/20 22:02 Tamsulosin Hcl 0.4 Mg Capsule PO Not Given BEDTIME [facility] Vitamin D 50 mcg 07/19/20 09:00 07/29/20 08:47 Cholecalciferol (Vitamin D3) 25 Mcg Tablet PO Not Given DAILY [facility] Home Medications Medication Instructions Recorded Confirmed Last Taken Type ascorbic acid (vitamin C) 500 mg 500 mg PO DAILY 02/19/20 07/18/20 07/17/20 History tablet cholecalciferol (vitamin D3) 50 50 mcg PO DAILY 02/19/20 07/18/20 07/17/20 History mcg (2,000 unit) tablet ferrous sulfate 325 mg (65 mg 325 mg PO DAILY 02/19/20 07/18/20 07/17/20 History iron) tablet tamsulosin 0.4 mg capsule 0.4 mg PO BEDTIME 02/19/20 07/18/20 07/17/20 History atorvastatin 40 mg tablet 40 mg PO BEDTIME tab 03/25/20 07/18/20 07/17/20 History insulin aspart U-100 [Novolog 6 unit SUBCUT TID 06/30/20 07/18/20 07/17/20 History Flexpen U-100 Insulin] sucralfate 10 ml PO QIDACHS 06/30/20 07/18/20 07/17/20 History empagliflozin [Jardiance] 25 mg PO DAILY 07/18/20 07/18/20 07/17/20 History insulin glargine [Semglee Pen 14 unit SUBCUT QAM 07/18/20 07/18/20 07/17/20 History U-100 Insulin] mirtazapine 7.5 mg PO BEDTIME 07/18/20 07/18/20 07/17/20 History nystatin 1 appl TOPICAL BID 07/18/20 07/18/20 07/17/20 History omeprazole 40 mg PO BID 07/18/20 07/18/20 07/17/20 History ondansetron HCl [Zofran] 4 mg PO Q8H PRN 07/18/20 07/18/20 Unknown History Physical Exam Vital Signs and Narrative: Vital Signs: Last Vital Signs Temp 97.1 F 07/29/20 09:00 Pulse 66 07/29/20 09:00 Resp 17 07/29/20 09:00 BP 93/54 L 07/29/20 09:00 Pulse Ox 96 07/29/20 09:00 Body Mass Index 21.9 Patient appears mildly agitated. He follows commands, however. His bed mobility is good. He is able to roll to his side without my assistance. Examination of the bilateral buttocks reveals copious application of zinc oxide. I am not able to remove all of it, but in this context, I am not able to see any open wounds. Preserved blanching to the entire dermis is seen suggesting that there is no pressure ulcer present. There is however, erythema and inflammation of the buttocks within the crease and inferior left gluteal fold consistent with fungal dermatitis. It is tender to palpation. An occlusive foam is noted over T4 bony prominence posteriorly of thorax. This is peeled back to reveal a 0.4 area of denuded epithelium without associated redness or purulence. Results Labs CBC and Chem 7: 07/29/20 05:58 07/29/20 05:58 Labs: Laboratory Results - last 24 hr 07/28/20 07/28/20 07/29/20 16:28 20:04 05:58 MCV 88.1 MCH 29.5 MCHC 33.5 RDW 22.4 H Plt Count 141 L MPV 11.1 Immature Gran % (Auto) 0.3 Neut % (Auto) 78.8 H Lymph % (Auto) 12.5 L [place] % (Auto) 6.8 Eos % (Auto) 0.9 Baso % (Auto) 0.7 Lymph # (Auto) 1.1 L [place] # (Auto) 0.6 Eos # (Auto) 0.1 Baso # (Auto) 0.1 Abs Immat Gran (auto) 0.03 Absolute Neuts (auto) 6.9 Absolute Nucleated RBC 0.050 H Nucleated RBC % (auto) 0.6 H Anion Gap Estim Creat Clear Calc Estimated GFR POC Glucose 139 H 171 H Fasting Glucose Calcium 07/29/20 07/29/20 05:58 07:09 MCV MCH MCHC RDW Plt Count MPV Immature Gran % (Auto) Neut % (Auto) Lymph % (Auto) [place] % (Auto) Eos % (Auto) Baso % (Auto) Lymph # (Auto) [place] # (Auto) Eos # (Auto) Baso # (Auto) Abs Immat Gran (auto) Absolute Neuts (auto) Absolute Nucleated RBC Nucleated RBC % (auto) Anion Gap 18 Estim Creat Clear Calc 11.6 Estimated GFR 12 POC Glucose 183 H Fasting Glucose 184 H Calcium 9.3 Assessment and Plan (1) Candidal dermatitis: Start date: 04/06/21 Problem details: buttock rash Status: Acute Debilitated 70-year-old male with recent diarrhea, dehydration and failure to thrive leading to TREMAYNE, now on dialysis comes to [facility] from a rehab facility, now with tender and inflammed dermatitis of the buttocks. I do not see any skin changes of the buttocks consistent with pressure injury. Stop zinc oxide and switch to nystatin cream, top with miconazole powder. Agree with Allevyn to thorax opening so long as maceration is not occuring. Requires offloading of this thoracic bony prominence with lateral recumbency as tolerated. Avoid friction and shearing of the thoracic wound. Consider protein supplements if renal function will allow.
--- NOTE | 2020-07-29 14:02 | MHC.CLN ---
RE: CONSULT PO INTAKE REMAINS POOR WITH INCREASE IN REFUSALS DIET RX: 1800DM-APPROPRIATE PT RECEIVING ENSURE AND LACIE TO PROMOTE WOUND HEALING SUPPLEMENT PROVIDES 860KCALS, 45G PROTEIN PT REPORTED HE LIKES STRAWBERRY AND RULA FLAVOR ENSURE BUT NOT 100% RECEPTIVE TO DRINKING PT STATED HE WANTS TO BE LEFT ALONE ABOUT EATING. HOSPICE PENDING S/P FAMILY MEETING PER MD FOLLOWING
[2020-07-29] MEDS: Midodrine HCl 10 MG TABLET 20 MG PO (17:13)
[2020-07-29] MEDS: Omeprazole 40 MG CAPSULE.DR PO (17:16)
[2020-07-29] MEDS: Sodium Bicarbonate 650 MG TABLET PO (17:21)
[2020-07-29] MEDS: Sucralfate Oral Suspension 1 GM/10 ML ORAL.SUSP PO (17:23)
--- NOTE | 2020-07-29 17:24 | PC.NURSE ---
P-low BP 75/50 pulse 108 on return from dialysis,no report from dialysis nurse I Dr. Motley notified ,patient repositioned,Midodrine administered with assistance of family member nephew E Bp 92/56 when rechecked,IV fluid infusing as ordered,patient drinking mike grady,will monitor
[2020-07-29] MEDS: Dextrose 5 % and 0.9 % NaCl 1,000 ML 50 ML IVCONT (17:46)
--- NOTE | 2020-07-29 18:17 | P.PNNPD_ITS ---
Subjective Subjective This patient was seen during dialysis. Interval history: wants to be left alone Physical Exam Vital Signs: Vital Signs: Last Vital Signs Temp 96.4 F L 07/29/20 17:28 Pulse 107 H 07/29/20 17:28 Resp 20 07/29/20 17:28 BP 92/56 L 07/29/20 17:28 Pulse Ox 98 07/29/20 17:28 Body Mass Index 21.9 Const: General: no acute distress Neck: Neck: Yes no JVD Resp: Auscultation: diminished lung sounds GI: Inspection: Yes distended Neuro: Motor exam (neuro): no asterixis Assessment & Plan Assessment and plan (1) TREMAYNE (acute kidney injury): Problem details: 70-year-old male past medical history as above including cirrhosis which appears relatively compensated ,complaining of diarrhea as well as poor oral intake found to have severe ANURIC TREMAYNE and metabolic acidosis now HD dependent Anuric Acute 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: s/p HD started 07/03 Seen AM; Midodrine 20 mg tid; Needs K to be over 4 continue HD support and tap ascites as needed (outpt HD spot at [place] unit TTS 1) Shall follow up ; VERY Poor prognosis ? Goals of care Status: Acute Time Spent With Patient Time: Total time spent is greater than 50% in coordination of care (as documented) at patient's floor/unit and/or counseling patient:
[2020-07-29 19:54] LABS: Glucose, Whole Blood 189 mg/dL (60-115)
[2020-07-29 20:40] LABS: Glucose, Whole Blood 104 mg/dL (60-115)
[2020-07-29] MEDS: Tamsulosin HCL 0.4 MG CAPSULE PO (21:25)
[2020-07-30] VITALS (9 sets, daily range): BP systolic 82–94; BP diastolic 45–55; PULSE 55–97; RESP 14–18; TEMP 36.2–36.6; O2SAT 93–98
[2020-07-30] MEDS: 0.9 % Sodium Chloride Flush 3 ML SYRINGE IVFLUSH ×3 (00:40→21:34)
[2020-07-30 07:47] LABS: Glucose, Whole Blood 119 mg/dL (60-115)
[2020-07-30] MEDS: Midodrine HCl 10 MG TABLET 20 MG PO ×3 (08:01→16:16)
--- NOTE | 2020-07-30 10:38 | MHC.CARE ---
2701: Met with patient as a follow up. During our discussion, Mr. Adenike Tidwell was very clear that he had no intent on harming himself or any one else stating That wasn't me , not suggesting someone else made that the statement related to suicide or that it wasn't him, but that the statement was out of character for him.? He stated more than once I just want to live and said that He's feeling better mentally and emotionally. Pt is still experiencing some sadness related to his declining health and when asked to rate his depression he said I want to live .? When asked about the cause of his change in thought, he mentioned his treva and his Treva and trust?in god as reasons for his change of thought.? Pt stated that the statement he made (SEE CARE NOTE 07/22) was not how he thinks or feels. Pt presented physically much the same as he did on 07/22. Pt's mood was more consistent than at our last meeting with more eye contact, more participation in the conversation and a great deal more certainty about what his thoughts were regarding his situation, and his having no thoughts of self harm. Spoke with pt's nurse Frances briefly. She mentioned no discharge has been planned as of yet for the patient. I advised her that I would be speaking with the brother and may suggest that a sitter may no longer be necessary. Pt granted me permission to speak with his brother Mihai Tidwell as a collateral contact. Dex Tidwell said his brother's mood has improved and he is more like himself.? He said that statement that was made is really not his brother's base line and it's very out of character.? He has gone so far as to say He's changed a lot .? This change is in his outlook. Mr. Dex Tidwell stated that the family has been visiting regularly. He mentioned that Adenike Tidwell was Joking and smiling with us yesterday . Mr. Janina Tidwell stated that since that evening on 07/21 when Rodrigo Tidwell made the statement regarding killing himself, no such statements like that were made. Mr. Janina Tidwell believes that the statement was an unusual occurrence, very out of character for his brother, and was related to his declining physical health. He stated that his brother has been attempting to eat picking at his food but has been drinking his shakes that are being provided as a supplement. Mr. Janina Tidwell advised me that he and the family have a meeting with hospice today at 11:00AM to speak about discharge and services for Mr. Adenike Tidwell. After speaking with the patient and his brother I believe there is no intent of self harm and that the statement he made was an isolated incident and as such there is no need for a one on one staff presence. Diesel Engine Tester Keiko Gordon notified of my meeting and the content there of via e mail. Spoke with Nursing Field Crop I Farmworker regarding my conversation with both the patient and his brother and my thoughts on his safety.
[2020-07-30 11:38] LABS: Glucose, Whole Blood 112 mg/dL (60-115)
--- NOTE | 2020-07-30 13:20 | P.PNIM_ITS ---
Subjective Subjective Date of Service: 07/30/20 Interval History: the patient was seen and evaluated this morning Laying in bed, feels comfortable overall, abdominal distended but denies any pain Denies any fever, chills or shortness of breath No reported other overnight events. Systemic review: No fever, chills or weakness No chest pain, palpitation No shortness of breath or coughing No abdominal pain, nausea or vomiting Physical Exam Vital Signs: Vital Signs: Last Vital Signs Temp 97.6 F 07/30/20 12:11 Pulse 61 07/30/20 12:17 Resp 18 07/30/20 12:11 BP 90/51 L 07/30/20 12:17 Pulse Ox 95 07/30/20 12:11 Body Mass Index 21.9 Const: Other: Constitutional : Alert, oriented to self, not in distress, ill- appearing Neck : Normal inspection, Supple Cardiovascular : RRR, S1 S2, trace lower extremity edema Respiratory : Failure bilateral air entry, no crackles, wheezes or rhonchi Gastrointestinal: soft, lax, distended abdomen, no tenderness on palpation Skin : Warm/Dry, buttock wounds but no ulcer Neurological : Alert & oriented x3, No focal deficit Objective Data Current Medications Generic Name Dose Route Start Last Admin Trade Name Freq PRN Reason Stop Dose Admin Ascorbic Acid 500 mg 07/19/20 09:00 07/30/20 08:03 Ascorbic Acid 500 Mg Tablet PO Not Given DAILY [facility] Atorvastatin Calcium 40 mg 07/18/20 21:00 07/29/20 21:31 Atorvastatin Calcium 40 Mg Tablet PO Not Given BEDTIME [facility] Ferrous Sulfate 324 mg 07/19/20 09:00 07/30/20 08:03 Ferrous Sulfate 324 Mg Tablet. PO Not Given DAILY [facility] Midodrine 20 mg 07/19/20 08:00 07/30/20 12:17 Midodrine Hcl 10 Mg Tablet PO 20 mg TIDWM [facility] Administration Mirtazapine 7.5 mg 07/18/20 21:00 07/29/20 21:31 Mirtazapine 7.5 Mg Tablet PO Not Given BEDTIME [facility] Nystatin 1 appl 07/18/20 21:00 07/30/20 08:03 Nystatin Cream 15 Gm Tube TOPICAL Not Given BID [facility] Protocol Omeprazole 40 mg 07/19/20 06:30 07/30/20 06:22 Omeprazole 40 Mg Capsule. PO Not Given BID@5611,1615 [facility] Ondansetron HCl 4 mg 07/18/20 18:17 07/27/20 15:58 Ondansetron Hcl 4 Mg/2 Ml Vial IVPUSH 4 mg Q8H PRN Administration Nausea and Vomiting Pharmacy Consult 1 each 07/18/20 09:22 Consult Rx Perform Med Rec MISCELLANE ONCE PRN Consult order Sodium Bicarbonate 650 mg 07/18/20 21:00 07/30/20 08:03 Sodium Bicarbonate 650 Mg Tablet PO Not Given TID [facility] Sodium Chloride 3 ml 07/18/20 18:17 07/30/20 07:14 0.9 % Sodium Chloride Flush 3 Ml Syringe IVFLUSH Not Given QSHIFT [facility] Sucralfate 1 gm 07/18/20 18:17 07/30/20 10:49 Sucralfate Oral Suspension 1 Gm/10 Ml Oral.Susp PO Not Given QIDACHS [facility] Tamsulosin HCl 0.4 mg 07/18/20 21:00 07/29/20 21:25 Tamsulosin Hcl 0.4 Mg Capsule PO 0.4 mg BEDTIME [facility] Administration Vitamin D 50 mcg 07/19/20 09:00 07/30/20 08:03 Cholecalciferol (Vitamin D3) 25 Mcg Tablet PO Not Given DAILY [facility] Labs CBC & Chem 7: 07/29/20 05:58 07/29/20 05:58 Microbiology Microbiology Results: Microbiology 07/23/20 15:17 Abdominal Fluid Gram Stain - Final 07/23/20 15:17 Abdominal Fluid Routine Culture - Final No growth after 2 days 07/23/20 15:17 Abdominal Fluid Anaerobic Culture - Final NO GROWTH AFTER 5 DAYS 07/20/20 14:44 Blood - Central Line Blood Culture - Final No growth after 5 days. 07/20/20 14:33 Blood - Central Line Blood Culture - Final No growth after 5 days. 07/18/20 10:54 Blood - Venous Blood Culture - Final No growth after 5 days. 07/18/20 10:41 Blood - Venous Blood Culture - Final No growth after 5 days. 07/18/20 13:34 Abdominal Fluid Gram Stain - Final 07/18/20 13:34 Abdominal Fluid Anaerobic Culture - Final NO GROWTH AFTER 5 DAYS 07/18/20 13:34 Abdominal Fluid Body Fluid Culture - Final No growth after 2 days 07/18/20 Unknown Urine clean catch - Clean Catch Midstream Urine Culture - Final Nevaeh albicans Assessment and Plan (1) Liver cirrhosis: Status: Acute (2) ESRD (end stage renal disease) on dialysis: Status: Acute Assessment and Plan: 70yo M with cirrhosis with ascites, DM2, anemia, severe malnutrition recent admission 06/30-07/14/20 for anuric TREMAYNE with AGMA/NAGMA progressing to HD dependence 07/03/20 with hepatorenal syndrome, obstructive uropathy without hydronephrosis s/p bilateral ureteral stents re-admitted from SNF due to lethargy, decreased PO, FTT, gross hematuria in Ch, abdominal discomfort, fever Ascites no evidence of SBP resolved, cultures negative, afebrile off antibiotics ESRD/HD dependence Worsened from acute kidney injury at time of presentation due to HRS Started dialysis July 03 midodrine, sodium bicarbonate which patient is refusing them most of the times continue HD as per Nephrology. anemia of chronic disease- Hb flauctuating transfused 1 unit 07/24/20, hgb improved appropriately from 6.9 to 7.9 Last checked 7.2 will continue to monitor Hypotension Secondary to general deconditioning, decreased p.o. intake, new dialysis Seems to improve with midodrine but he keeps refusing them Continue to monitor, add fluid boluses as needed FTT/moderate protein-calorie malnutrition Ensure cirrhosis previous taps-no evidence of SBP, or malignancy has right portal vein thrombosis, unable to tolerate anticoagulation afp supicious for HCC, follow up mri, not read yet prognosis guarded Tab ascites and as needed DM Better controlled fs in 120-160 range depression/sI: sitter care team eval DVT PPX SCDs Dispo, goals of care discussed with Dr. Motley with a plan for patient and his family to to the hospice care team today. Will continue to follow.
--- NOTE | 2020-07-30 15:25 | PM.PNNEP ---
Subjective Subjective Date of Service: 07/30/20 Interval history: Events noted Feels about the same Poor PO intake Physical Exam Vital Signs: Vital Signs: Last Vital Signs Temp 97.2 F 07/30/20 15:23 Pulse 89 07/30/20 15:23 Resp 16 07/30/20 15:23 BP 82/50 L 07/30/20 15:23 Pulse Ox 97 07/30/20 15:23 Body Mass Index 21.9 Const: General: no acute distress Neck: Neck: Yes no JVD Resp: Auscultation: diminished lung sounds GI: Inspection: Yes distended Neuro: Motor exam (neuro): no asterixis Objective Data Labs CBC & Chem 7: 07/29/20 05:58 07/29/20 05:58 Labs: Laboratory Results - last 24 hr 07/29/20 07/29/20 07/30/20 11:53 19:54 07:10 POC Glucose 189 H 104 119 H 07/30/20 11:34 POC Glucose 112 Microbiology Microbiology Results: Microbiology 07/23/20 15:17 Abdominal Fluid Gram Stain - Final 07/23/20 15:17 Abdominal Fluid Routine Culture - Final No growth after 2 days 07/23/20 15:17 Abdominal Fluid Anaerobic Culture - Final NO GROWTH AFTER 5 DAYS 07/20/20 14:44 Blood - Central Line Blood Culture - Final No growth after 5 days. 07/20/20 14:33 Blood - Central Line Blood Culture - Final No growth after 5 days. 07/18/20 10:54 Blood - Venous Blood Culture - Final No growth after 5 days. 07/18/20 10:41 Blood - Venous Blood Culture - Final No growth after 5 days. 07/18/20 13:34 Abdominal Fluid Gram Stain - Final 07/18/20 13:34 Abdominal Fluid Anaerobic Culture - Final NO GROWTH AFTER 5 DAYS 07/18/20 13:34 Abdominal Fluid Body Fluid Culture - Final No growth after 2 days 07/18/20 Unknown Urine clean catch - Clean Catch Midstream Urine Culture - Final Nevaeh albicans Assessment & Plan Assessment and plan (1) TREMAYNE (acute kidney injury): Problem details: 70-year-old male past medical history as above including cirrhosis which appears relatively compensated ,complaining of diarrhea as well as poor oral intake found to have severe ANURIC TREMAYNE and metabolic acidosis now HD dependent Anuric Acute 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: s/p HD started 07/03 Seen AM; Midodrine 20 mg tid; Needs K to be over 4 continue HD support and tap ascites as needed (outpt HD spot at [place] unit TTS 1) Shall follow up ; VERY Poor prognosis ? Goals of care Status: Acute Time Spent With Patient Time: Total time spent is greater than 50% in coordination of care (as documented) at patient's floor/unit and/or counseling patient:
[2020-07-30 16:15] LABS: Glucose, Whole Blood 84 mg/dL (60-115)
[2020-07-30] MEDS: Omeprazole 40 MG CAPSULE.DR PO (16:16)
[2020-07-30] MEDS: Fludrocortisone Acetate 0.1 MG TABLET PO (16:16)
[2020-07-30] MEDS: Sucralfate Oral Suspension 1 GM/10 ML ORAL.SUSP PO ×2 (16:17→21:34)
[2020-07-30 20:24] LABS: Glucose, Whole Blood 79 mg/dL (60-115)
[2020-07-30] MEDS: Mirtazapine 7.5 MG TABLET PO (21:34)
[2020-07-30] MEDS: Sodium Bicarbonate 650 MG TABLET PO (21:34)
[2020-07-30] MEDS: Tamsulosin HCL 0.4 MG CAPSULE PO (21:34)
[2020-07-30] MEDS: Atorvastatin Calcium 40 MG TABLET PO (21:34)
[2020-07-30] MEDS: Nystatin Cream 15 GM TUBE 1 APPL TOPICAL (21:34)
[2020-07-31] VITALS (8 sets, daily range): BP systolic 81–91; BP diastolic 48–56; PULSE 68–107; RESP 16–20; TEMP 36.1–36.8; O2SAT 96–98
--- NOTE | 2020-07-31 03:07 | PC.NURSE ---
Around 1:30 am patient pulled his dialysis port out. Profuse blood was coming out ,pressure was applied and bleeding stopped. Applied a pressure bandage which is still intact. Dr. Birmingham was notified and Dr. Horan was notified from Nephrology Dr. millard to keep a pressure bandage on.
--- NOTE | 2020-07-31 05:05 | PM.EVENT ---
Event Note Date of Service: 07/31/20 Event Note: Pt Delirius. Pulled out his dialysis cath. Bleeding was stopped with pressure applied to site. BP low, refusing to take PO Midodrine.
[2020-07-31] MEDS: Midodrine HCl 10 MG TABLET 20 MG PO ×3 (05:19→12:08)
--- NOTE | 2020-07-31 05:24 | PC.NURSE ---
BLOOD PRESSURE RUNNING LOW AT 0300 ROUNDS, 82/52 MANUALLY, 91-16-97 TEMP AND O2 SATS 98% ROOM AIR. PT ASYMPTOMATIC, DENIES LIGHTHEADED, WEAKNESS, PAIN OR FEELING DIFFERENT. PT ALERT AND TALKING. UPDATED AND PER TIGER TEXT GIVE UNSCHEDULED DOSE OF PO MIDODRINE IF PT WILLING. 20 MG PO GIVEN AT 0520 AND WILL RECHECK BP AND CONTINUE TO MONITOR
[2020-07-31 07:31] LABS: Glucose, Whole Blood 77 mg/dL (60-115)
[2020-07-31] MEDS: 0.9 % Sodium Chloride Flush 3 ML SYRINGE IVFLUSH ×3 (08:19→21:14)
[2020-07-31] MEDS: Sodium Bicarbonate 650 MG TABLET PO ×2 (08:21→21:13)
[2020-07-31] MEDS: Sucralfate Oral Suspension 1 GM/10 ML ORAL.SUSP PO ×3 (08:21→21:13)
[2020-07-31] MEDS: Ascorbic Acid 500 MG TABLET PO (08:21)
[2020-07-31] MEDS: Ferrous Sulfate 324 MG TABLET.DR PO (08:21)
[2020-07-31] MEDS: Cholecalciferol (Vitamin D3) 25 MCG TABLET 50 MCG PO (08:21)
[2020-07-31] MEDS: Nystatin Cream 15 GM TUBE 1 APPL TOPICAL ×2 (08:28→21:13)
--- NOTE | 2020-07-31 10:40 | W.MHC.ACPN ---
Advanced Care Planning Note Advanced Care Planning Note Discussed with: patient Time spent (in minutes): 17 Narrative: I had a chance to meet with to discuss his ongoing hospital stay and goals of care. The patient was admitted to the hospital with acute renal failure requiring starting of dialysis associated with adult failure to thrive, increase Frailty. He was started on dialysis later of June but has been having episodes of low blood pressure, decreased oral intake and being not interested in medications and refusing them. Today we sat and discussed what does he want from this life. He said he want to live and does not want to . Overnight he took out his dialysis catheter which she reports by mistake. We discussed placing a new catheter and continue dialysis which he is on board with. I tried to address code status and explained to him that difference between being full code or DNR. The patient preferred to be full code and he wants every attempt to be done to save his life. Problems Discussed (1) TREMAYNE (acute kidney injury): (2) Frailty: (3) Acute renal failure: (4) Adult failure to thrive: (5) ESRD (end stage renal disease) on dialysis:
--- NOTE | 2020-07-31 11:14 | MHC.CLN ---
F/U PT CONTINUES TO REFUSE MEALS PT IS CURRENTLY NPO WHEN DIET TO RESUME; RECOMMEND RE-STARTING ENSURE AND LACIE TO SUPPORT WOUND HEALING FOLLOWING
[2020-07-31 11:20] LABS: Glucose, Whole Blood 83 mg/dL (60-115)
--- NOTE | 2020-07-31 12:35 | P.PNIM_ITS ---
Subjective Subjective Date of Service: 07/31/20 Interval History: the patient was seen and evaluated this morning Laying in bed, feels comfortable overall, abdominal distended but denies any pain Overnight removed his dialysis catheter while was delirious at night Bleeding source controlled Denies any fever, chills or shortness of breath No reported other overnight events. Systemic review: No fever, chills or weakness No chest pain, palpitation No shortness of breath or coughing No abdominal pain, nausea or vomiting Physical Exam Vital Signs: Vital Signs: Last Vital Signs Temp 98.2 F 07/31/20 08:33 Pulse 96 07/31/20 08:33 Resp 16 07/31/20 08:33 BP 91/52 L 07/31/20 08:33 Pulse Ox 96 07/31/20 08:33 Body Mass Index 21.9 Const: Other: Constitutional : Alert, oriented to self, not in distress, ill- appearing Neck : Normal inspection, Supple Cardiovascular : RRR, S1 S2, trace lower extremity edema no 50 Respiratory : Failure bilateral air entry, no crackles, wheezes or rhonchi Gastrointestinal: soft, lax, distended abdomen, no tenderness on palpation Skin : Warm/Dry, buttock wounds but no ulcer Neurological : Alert & oriented x3, No focal deficit Objective Data Current Medications Generic Name Dose Route Start Last Admin Trade Name Jana PRN Reason Stop Dose Admin Ascorbic Acid 500 mg 07/19/20 09:00 07/31/20 08:21 Ascorbic Acid 500 Mg Tablet PO 500 mg DAILY [facility] Administration Atorvastatin Calcium 40 mg 07/18/20 21:00 07/30/20 21:34 Atorvastatin Calcium 40 Mg Tablet PO 40 mg BEDTIME [facility] Administration Ferrous Sulfate 324 mg 07/19/20 09:00 07/31/20 08:21 Ferrous Sulfate 324 Mg Tablet. PO 324 mg DAILY [facility] Administration Midodrine 20 mg 07/31/20 17:00 Midodrine Hcl 10 Mg Tablet PO TIDWM [facility] Mirtazapine 7.5 mg 07/18/20 21:00 07/30/20 21:34 Mirtazapine 7.5 Mg Tablet PO 7.5 mg BEDTIME [facility] Administration Nystatin 1 appl 07/18/20 21:00 07/31/20 08:28 Nystatin Cream 15 Gm Tube TOPICAL 1 appl BID [facility] Administration Protocol Omeprazole 40 mg 07/19/20 06:30 07/31/20 06:26 Omeprazole 40 Mg Capsule. PO Not Given BID@7353,6570 [facility] Ondansetron HCl 4 mg 07/18/20 18:17 07/27/20 15:58 Ondansetron Hcl 4 Mg/2 Ml Vial IVPUSH 4 mg Q8H PRN Administration Nausea and Vomiting Pharmacy Consult 1 each 07/18/20 09:22 Consult Rx Perform Med Rec MISCELLANE ONCE PRN Consult order Sodium Bicarbonate 650 mg 07/18/20 21:00 07/31/20 08:21 Sodium Bicarbonate 650 Mg Tablet PO 650 mg TID [facility] Administration Sodium Chloride 3 ml 07/18/20 18:17 07/31/20 08:19 0.9 % Sodium Chloride Flush 3 Ml Syringe IVFLUSH 3 ml QSHIFT [facility] Administration Sucralfate 1 gm 07/18/20 18:17 07/31/20 12:07 Sucralfate Oral Suspension 1 Gm/10 Ml Oral.Susp PO 1 gm QIDACHS [facility] Administration Tamsulosin HCl 0.4 mg 07/18/20 21:00 07/30/20 21:34 Tamsulosin Hcl 0.4 Mg Capsule PO 0.4 mg BEDTIME [facility] Administration Vitamin D 50 mcg 07/19/20 09:00 07/31/20 08:21 Cholecalciferol (Vitamin D3) 25 Mcg Tablet PO 50 mcg DAILY [facility] Administration Labs CBC & Chem 7: 07/29/20 05:58 07/29/20 05:58 Microbiology Microbiology Results: Microbiology 07/23/20 15:17 Abdominal Fluid Gram Stain - Final 07/23/20 15:17 Abdominal Fluid Routine Culture - Final No growth after 2 days 07/23/20 15:17 Abdominal Fluid Anaerobic Culture - Final NO GROWTH AFTER 5 DAYS 07/20/20 14:44 Blood - Central Line Blood Culture - Final No growth after 5 days. 07/20/20 14:33 Blood - Central Line Blood Culture - Final No growth after 5 days. 07/18/20 10:54 Blood - Venous Blood Culture - Final No growth after 5 days. 07/18/20 10:41 Blood - Venous Blood Culture - Final No growth after 5 days. 07/18/20 13:34 Abdominal Fluid Gram Stain - Final 07/18/20 13:34 Abdominal Fluid Anaerobic Culture - Final NO GROWTH AFTER 5 DAYS 07/18/20 13:34 Abdominal Fluid Body Fluid Culture - Final No growth after 2 days 07/18/20 Unknown Urine clean catch - Clean Catch Midstream Urine Culture - Final Nevaeh albicans Assessment and Plan (1) TREMAYNE (acute kidney injury): Problem details: The Status: Acute (2) Frailty: Status: Acute (3) Acute renal failure: Status: Acute (4) Adult failure to thrive: Status: Acute (5) ESRD (end stage renal disease) on dialysis: Status: Acute Assessment and Plan: 70yo M with cirrhosis with ascites, DM2, anemia, severe malnutrition recent admission 06/30-07/14/20 for anuric TREMAYNE with AGMA/NAGMA progressing to HD dependence 07/03/20 with hepatorenal syndrome, obstructive uropathy without hydronephrosis s/p bilateral ureteral stents re-admitted from SNF due to lethargy, decreased PO, FTT, gross hematuria in Ch, abdominal discomfort, fever Dialysis catheter problem Patient removed the catheter overnight while delirious Will try to place a new 1 by IR Ascites no evidence of SBP resolved, cultures negative, afebrile off antibiotics ESRD/HD dependence Worsened from acute kidney injury due to HRS Started dialysis July 03 midodrine, sodium bicarbonate which patient is refusing them most of the times continue HD as per Nephrology. anemia of chronic disease- Hb flauctuating transfused 1 unit 07/24/20, hgb improved appropriately from 6.9 to 7.9 Last checked 7.2 will continue to monitor Hypotension Secondary to general deconditioning, decreased p.o. intake, new dialysis Seems to improve with midodrine but he keeps refusing them Continue to monitor, add fluid boluses as needed FTT/moderate protein-calorie malnutrition Ensure cirrhosis previous taps-no evidence of SBP, or malignancy has right portal vein thrombosis, unable to tolerate anticoagulation afp supicious for HCC, follow up mri, not read yet prognosis guarded Tab ascites and as needed DM Better controlled Hold all medications depression/sI: sitter care team eval DVT PPX SCDs Dispo, plan to discharge to SNF with dialysis
--- NOTE | 2020-07-31 13:56 | MHC.CM.PN ---
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 PLAN IS FOR THIS TO BE REPLACED TODAY CONTINUE CURRENT MEDICATIONS AND REASSESS TOMORROW FOR DISCHARGE BACK TO [facility] PROXY COMPLETED YESTERDAY AND UPOADED TO [facility]
--- NOTE | 2020-07-31 14:03 | PM.PNNEP ---
Subjective Subjective Date of Service: 07/31/20 Interval history: Events noted Accidentally dislodged permcath last night Physical Exam Vital Signs: Vital Signs: Last Vital Signs Temp 98.2 F 07/31/20 08:33 Pulse 96 07/31/20 08:33 Resp 16 07/31/20 08:33 BP 91/52 L 07/31/20 08:33 Pulse Ox 96 07/31/20 08:33 Body Mass Index 21.9 Const: General: no acute distress Neck: Neck: Yes no JVD Resp: Auscultation: diminished lung sounds GI: Inspection: Yes distended Neuro: Motor exam (neuro): no asterixis Objective Data Labs CBC & Chem 7: 07/29/20 05:58 07/29/20 05:58 Labs: Laboratory Results - last 24 hr 07/30/20 07/30/20 07/31/20 16:11 20:18 07:23 POC Glucose 84 79 77 07/31/20 11:16 POC Glucose 83 Microbiology Microbiology Results: Microbiology 07/23/20 15:17 Abdominal Fluid Gram Stain - Final 07/23/20 15:17 Abdominal Fluid Routine Culture - Final No growth after 2 days 07/23/20 15:17 Abdominal Fluid Anaerobic Culture - Final NO GROWTH AFTER 5 DAYS 07/20/20 14:44 Blood - Central Line Blood Culture - Final No growth after 5 days. 07/20/20 14:33 Blood - Central Line Blood Culture - Final No growth after 5 days. 07/18/20 10:54 Blood - Venous Blood Culture - Final No growth after 5 days. 07/18/20 10:41 Blood - Venous Blood Culture - Final No growth after 5 days. 07/18/20 13:34 Abdominal Fluid Gram Stain - Final 07/18/20 13:34 Abdominal Fluid Anaerobic Culture - Final NO GROWTH AFTER 5 DAYS 07/18/20 13:34 Abdominal Fluid Body Fluid Culture - Final No growth after 2 days 07/18/20 Unknown Urine clean catch - Clean Catch Midstream Urine Culture - Final Nevaeh albicans Assessment & Plan Assessment and plan (1) TREMAYNE (acute kidney injury): Problem details: 70-year-old male past medical history as above including cirrhosis which appears relatively compensated ,complaining of diarrhea as well as poor oral intake found to have severe ANURIC TREMAYNE and metabolic acidosis now HD dependent Anuric Acute 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: s/p HD started 07/03 Seen AM; Midodrine 20 mg tid; Needs K to be over 4 continue HD support and tap ascites as needed (outpt HD spot at [place] unit TTS 1) Shall follow up ; VERY Poor prognosis ? Goals of care Reinsert Permcath Status: Acute Time Spent With Patient Time: Total time spent is greater than 50% in coordination of care (as documented) at patient's floor/unit and/or counseling patient:
[2020-07-31 20:32] LABS: Glucose, Whole Blood 63 mg/dL (60-115)
[2020-07-31] MEDS: Mirtazapine 7.5 MG TABLET PO (21:13)
[2020-07-31] MEDS: Atorvastatin Calcium 40 MG TABLET PO (21:13)
[2020-07-31] MEDS: Tamsulosin HCL 0.4 MG CAPSULE PO (21:13)
[2020-07-31] MEDS: Dextrose 5 % and Lactated Ring 1,000 ML 50 ML IVCONT (21:21)
[2020-07-31 21:23] LABS: Glucose, Whole Blood 127 mg/dL (60-115)
[2020-08-01] VITALS (7 sets, daily range): BP systolic 85–138; BP diastolic 48–76; PULSE 68–98; RESP 17–20; TEMP 36.2–37; O2SAT 94–98
[2020-08-01 06:43] LABS: Mean Corpuscular HGB Conc 34.5 g/dl (31.0-36.0); Mean Corpuscular Hemoglobin 29.9 pg (27.0-33.0); Mean Corpuscular Volume 86.6 fL (80-98); Mean Platelet Volume 10.5 fL (9.4-12.4); NRBC Pct Auto 0.6 /100WBC (0.0-0.2); Platelet Count 159 X10*3/uL (160-400); Red Blood Count 2.24 X10*6/uL (4.60-5.80); Red Cell Distribution Width 22.5 % (11.0-16.0); White Blood Count 9.9 X10*3/uL (4.8-10.8)
[2020-08-01 07:05] LABS: INTERNATIONAL NORM RATIO 1.3 (0.9-1.1); Prothrombin Time 15.1 SEC (10.8-13.0)
[2020-08-01 07:14] LABS: Hemoglobin 6.7 g/dl (14.0-18.0)
[2020-08-01 07:15] LABS: Hematocrit 19.4 % (42-52)
[2020-08-01 07:36] LABS: Glucose, Whole Blood 95 mg/dL (60-115)
[2020-08-01 07:37] LABS: Anion Gap 16 (12-20); Blood Urea Nitrogen 31 mg/dL (9-16); Carbon Dioxide 23 mmol/L (22-29); Chloride 106 mmol/L (96-108); Estimated Glomerular Filt Rate 11; Glucose Random 105 mg/dL (60-115); Sodium 142 mmol/L (135-145)
[2020-08-01] MEDS: Ferrous Sulfate 324 MG TABLET.DR PO (09:11)
[2020-08-01] MEDS: Midodrine HCl 10 MG TABLET 20 MG PO ×2 (09:11→17:31)
[2020-08-01] MEDS: 0.9 % Sodium Chloride Flush 3 ML SYRINGE IVFLUSH (09:12)
[2020-08-01] MEDS: Sucralfate Oral Suspension 1 GM/10 ML ORAL.SUSP PO ×2 (09:12→20:09)
[2020-08-01] MEDS: Nystatin Cream 15 GM TUBE 1 APPL TOPICAL ×2 (09:16→20:10)
--- NOTE | 2020-08-01 11:02 | P.PNIM_ITS ---
Subjective Subjective Date of Service: 08/01/20 Interval History: the patient was seen and evaluated this morning Laying in bed, feels comfortable overall, abdominal distended but denies any pain Overnight removed his dialysis catheter while was delirious at night Bleeding source controlled Denies any fever, chills or shortness of breath No reported other overnight events. Systemic review: No fever, chills or weakness No chest pain, palpitation No shortness of breath or coughing No abdominal pain, nausea or vomiting Physical Exam Vital Signs: Vital Signs: Last Vital Signs Temp 97.6 F 08/01/20 07:30 Pulse 98 08/01/20 07:30 Resp 17 08/01/20 07:30 BP 85/48 L 08/01/20 07:30 Pulse Ox 94 08/01/20 07:30 Body Mass Index 21.9 Const: Other: Constitutional : Alert, oriented to self, not in distress, ill- appearing Neck : Normal inspection, Supple Cardiovascular : RRR, S1 S2, trace lower extremity edema no 50 Respiratory : Failure bilateral air entry, no crackles, wheezes or rhonchi Gastrointestinal: soft, lax, distended abdomen, no tenderness on palpation Skin : Warm/Dry, buttock wounds but no ulcer Neurological : Alert & oriented x3, No focal deficit Objective Data Current Medications Generic Name Dose Route Start Last Admin Trade Name Shahzadq PRN Reason Stop Dose Admin Ascorbic Acid 500 mg 07/19/20 09:00 08/01/20 09:13 Ascorbic Acid 500 Mg Tablet PO Not Given DAILY ROJAS Atorvastatin Calcium 40 mg 07/18/20 21:00 07/31/20 21:13 Atorvastatin Calcium 40 Mg Tablet PO 40 mg BEDTIME ROJAS Administration Ferrous Sulfate 324 mg 07/19/20 09:00 08/01/20 09:11 Ferrous Sulfate 324 Mg Tablet.Dr PO 324 mg DAILY ROJAS Administration Dextrose/Lactated Ringer's 1,000 mls @ 50 mls/hr 07/31/20 21:00 07/31/20 21:21 D5lr IVCONT 50 mls/hr .Q20H ROJAS Administration Midodrine 20 mg 07/31/20 17:00 08/01/20 09:11 Midodrine Hcl 10 Mg Tablet PO 20 mg TIDWM ROJAS Administration Mirtazapine 7.5 mg 07/18/20 21:00 07/31/20 21:13 Mirtazapine 7.5 Mg Tablet PO 7.5 mg BEDTIME [facility] Administration Nystatin 1 appl 07/18/20 21:00 08/01/20 09:16 Nystatin Cream 15 Gm Tube TOPICAL 1 appl BID [facility] Administration Protocol Omeprazole 40 mg 07/19/20 06:30 08/01/20 05:34 Omeprazole 40 Mg Capsule. PO Not Given BID@0630,1630 [facility] Ondansetron HCl 4 mg 07/18/20 18:17 07/27/20 15:58 Ondansetron Hcl 4 Mg/2 Ml Vial IVPUSH 4 mg Q8H PRN Administration Nausea and Vomiting Pharmacy Consult 1 each 07/18/20 09:22 Consult Rx Perform Med Rec MISCELLANE ONCE PRN Consult order Sodium Bicarbonate 650 mg 07/18/20 21:00 08/01/20 09:13 Sodium Bicarbonate 650 Mg Tablet PO Not Given TID [facility] Sodium Chloride 3 ml 07/18/20 18:17 08/01/20 09:12 0.9 % Sodium Chloride Flush 3 Ml Syringe IVFLUSH 3 ml QSHIFT [facility] Administration Sucralfate 1 gm 07/18/20 18:17 08/01/20 09:12 Sucralfate Oral Suspension 1 Gm/10 Ml Oral.Susp PO 1 gm QIDACHS [facility] Administration Tamsulosin HCl 0.4 mg 07/18/20 21:00 07/31/20 21:13 Tamsulosin Hcl 0.4 Mg Capsule PO 0.4 mg BEDTIME [facility] Administration Vitamin D 50 mcg 07/19/20 09:00 08/01/20 09:13 Cholecalciferol (Vitamin D3) 25 Mcg Tablet PO Not Given DAILY [facility] Labs CBC & Chem 7: 08/01/20 05:59 08/01/20 05:59 Microbiology Microbiology Results: Microbiology 07/23/20 15:17 Abdominal Fluid Gram Stain - Final 07/23/20 15:17 Abdominal Fluid Routine Culture - Final No growth after 2 days 07/23/20 15:17 Abdominal Fluid Anaerobic Culture - Final NO GROWTH AFTER 5 DAYS 07/20/20 14:44 Blood - Central Line Blood Culture - Final No growth after 5 days. 07/20/20 14:33 Blood - Central Line Blood Culture - Final No growth after 5 days. 07/18/20 10:54 Blood - Venous Blood Culture - Final No growth after 5 days. 07/18/20 10:41 Blood - Venous Blood Culture - Final No growth after 5 days. 07/18/20 13:34 Abdominal Fluid Gram Stain - Final 07/18/20 13:34 Abdominal Fluid Anaerobic Culture - Final NO GROWTH AFTER 5 DAYS 07/18/20 13:34 Abdominal Fluid Body Fluid Culture - Final No growth after 2 days 07/18/20 Unknown Urine clean catch - Clean Catch Midstream Urine Culture - Final Nevaeh albicans Assessment and Plan (1) TREMAYNE (acute kidney injury): Status: Acute (2) Anemia in chronic kidney disease: Status: Acute (3) ESRD (end stage renal disease) on dialysis: Status: Acute (4) Frailty: Status: Acute (5) Hypotension: Status: Acute Assessment and Plan: 70yo M with cirrhosis with ascites, DM2, anemia, severe malnutrition recent admission 06/30-07/14/20 for anuric TREMAYNE with AGMA/NAGMA progressing to HD dependence 07/03/20 with hepatorenal syndrome, obstructive uropathy without hydronephrosis s/p bilateral ureteral stents re-admitted from SNF due to lethargy, decreased PO, FTT, gross hematuria in Ch, abdominal discomfort, fever Dialysis catheter problem Patient removed the catheter yesterday morning while delirious Will try to place a new catheter by IR Consent taken from patient and his brother Acute on chronic anemia anemia of chronic disease Hemoglobin dropped to 6.9 Transfused 1 unit before, to give a 2nd unit today Continue to monitor H and H Ascites no evidence of SBP resolved, cultures negative, afebrile off antibiotics ESRD/HD dependence Worsened from acute kidney injury due to HRS Started dialysis July 03 midodrine, sodium bicarbonate which patient is refusing them most of the times continue HD as per Nephrology. Hypotension Secondary to general deconditioning, decreased p.o. intake, new dialysis Seems to improve with midodrine but he keeps refusing them Continue to monitor, add fluid boluses as needed FTT/moderate protein-calorie malnutrition Ensure cirrhosis previous taps-no evidence of SBP, or malignancy has right portal vein thrombosis, unable to tolerate anticoagulation afp supicious for HCC, follow up mri, not read yet prognosis guarded Tab ascites and as needed DM Better controlled Hold all medications depression/sI: sitter care team eval DVT PPX SCDs Dispo, plan to discharge to SNF with dialysis
--- NOTE | 2020-08-01 12:08 | PM.PNNEP ---
Subjective Subjective Date of Service: 08/02/20 Interval history: Events noted Yet to have HD catheter inserted Physical Exam Vital Signs: Vital Signs: Last Vital Signs Temp 97.4 F 08/01/20 11:09 Pulse 85 08/01/20 11:09 Resp 17 08/01/20 11:09 BP 138/76 08/01/20 11:09 Pulse Ox 98 08/01/20 11:09 Body Mass Index 21.9 Const: General: no acute distress Neck: Neck: Yes no JVD Resp: Auscultation: diminished lung sounds GI: Inspection: Yes distended Neuro: Motor exam (neuro): no asterixis Objective Data Labs CBC & Chem 7: 08/02/20 07:24 08/02/20 07:24 Labs: Laboratory Results - last 24 hr 07/31/20 07/31/20 08/01/20 20:22 21:19 05:59 WBC 9.9 RBC 2.24 L Hgb 6.7 L* Hct 19.4 L* MCV 86.6 MCH 29.9 MCHC 34.5 RDW 22.5 H Plt Count 159 L MPV 10.5 Absolute Nucleated RBC 0.060 H Nucleated RBC % (auto) 0.6 H PT INR Sodium Potassium Chloride Carbon Dioxide Anion Gap BUN Creatinine Estim Creat Clear Calc Estimated GFR POC Glucose 63 127 H Random Glucose Calcium Blood Type Antibody Screen Crossmatch 08/01/20 08/01/20 08/01/20 05:59 05:59 07:32 WBC RBC Hgb Hct MCV MCH MCHC RDW Plt Count MPV Absolute Nucleated RBC Nucleated RBC % (auto) PT 15.1 H INR 1.3 H Sodium 142 Potassium 3.0 L Chloride 106 Carbon Dioxide 23 Anion Gap 16 BUN 31 H Creatinine 5.26 H* Estim Creat Clear Calc 11.0 Estimated GFR 11 POC Glucose 95 Random Glucose 105 D Calcium 9.0 Blood Type Antibody Screen Crossmatch 08/01/20 09:02 WBC RBC Hgb Hct MCV MCH MCHC RDW Plt Count MPV Absolute Nucleated RBC Nucleated RBC % (auto) PT INR Sodium Potassium Chloride Carbon Dioxide Anion Gap BUN Creatinine Estim Creat Clear Calc Estimated GFR POC Glucose Random Glucose Calcium Blood Type O Positive Antibody Screen NEGATIVE Crossmatch See Detail Microbiology Microbiology Results: Microbiology 07/23/20 15:17 Abdominal Fluid Gram Stain - Final 07/23/20 15:17 Abdominal Fluid Routine Culture - Final No growth after 2 days 07/23/20 15:17 Abdominal Fluid Anaerobic Culture - Final NO GROWTH AFTER 5 DAYS 07/20/20 14:44 Blood - Central Line Blood Culture - Final No growth after 5 days. 07/20/20 14:33 Blood - Central Line Blood Culture - Final No growth after 5 days. 07/18/20 10:54 Blood - Venous Blood Culture - Final No growth after 5 days. 07/18/20 10:41 Blood - Venous Blood Culture - Final No growth after 5 days. 07/18/20 13:34 Abdominal Fluid Gram Stain - Final 07/18/20 13:34 Abdominal Fluid Anaerobic Culture - Final NO GROWTH AFTER 5 DAYS 07/18/20 13:34 Abdominal Fluid Body Fluid Culture - Final No growth after 2 days 07/18/20 Unknown Urine clean catch - Clean Catch Midstream Urine Culture - Final Nevaeh albicans Assessment & Plan Assessment and plan (1) TREMAYNE (acute kidney injury): Status: Acute Time Spent With Patient Time: Total time spent is greater than 50% in coordination of care (as documented) at patient's floor/unit and/or counseling patient:
[2020-08-01 12:17] LABS: Glucose, Whole Blood 115 mg/dL (60-115)
--- NOTE | 2020-08-01 14:24 | MHC.CLN ---
F/U PT REAMINS NPO WHEN DIET TO ADVANCE; RECOMMEND 2000DM DIET AND RE-START LACIE AND ENSURE BID TO PROMOTE WOUND HEALING
--- NOTE | 2020-08-01 16:51 | HO.RADPN ---
RADIOLOGY Narrative Narrative: R IJ 11.5 Fr 13 cm length temporary Marhurkar dialysis catheter placed. Tip in SVC. May use line.
[2020-08-01 17:27] LABS: Glucose, Whole Blood 118 mg/dL (60-115)
[2020-08-01] MEDS: Dextrose 5 % and Lactated Ring 1,000 ML 50 ML IVCONT (17:32)
[2020-08-01] MEDS: Mirtazapine 7.5 MG TABLET PO (20:09)
[2020-08-01] MEDS: Sodium Bicarbonate 650 MG TABLET PO (20:09)
[2020-08-01] MEDS: Tamsulosin HCL 0.4 MG CAPSULE PO (20:09)
[2020-08-01] MEDS: Atorvastatin Calcium 40 MG TABLET PO (20:09)
[2020-08-01 21:16] LABS: Glucose, Whole Blood 106 mg/dL (60-115)
[2020-08-02] VITALS (10 sets, daily range): BP systolic 85–112; BP diastolic 51–63; PULSE 86–95; RESP 15–18; TEMP 36.1–37.1; O2SAT 94–96
[2020-08-02] MEDS: Omeprazole 40 MG CAPSULE.DR PO (06:44)
[2020-08-02 07:20] LABS: Glucose, Whole Blood 107 mg/dL (60-115)
[2020-08-02] MEDS: Midodrine HCl 10 MG TABLET 20 MG PO ×2 (07:35→11:46)
--- NOTE | 2020-08-02 08:06 | PM.PNNEP ---
Subjective Subjective Date of Service: 08/02/20 Interval history: Events noted Dialysis catheter insertion Physical Exam Vital Signs: Vital Signs: Last Vital Signs Temp 97.0 F 08/02/20 07:12 Pulse 93 08/02/20 07:35 Resp 15 08/02/20 07:12 BP 85/51 L 08/02/20 07:35 Pulse Ox 96 08/02/20 07:12 Body Mass Index 21.9 Const: General: no acute distress Neck: Neck: Yes no JVD Resp: Auscultation: diminished lung sounds GI: Inspection: Yes distended Neuro: Motor exam (neuro): no asterixis Objective Data Labs CBC & Chem 7: 08/01/20 05:59 08/01/20 05:59 Labs: Laboratory Results - last 24 hr 07/25/20 08/01/20 08/01/20 08:38 09:02 11:12 POC Glucose 115 Blood Type O Positive Antibody Screen NEGATIVE Crossmatch See Detail See Detail 08/01/20 08/01/20 08/02/20 17:23 21:13 07:14 POC Glucose 118 H 106 107 Blood Type Antibody Screen Crossmatch Microbiology Microbiology Results: Microbiology 07/23/20 15:17 Abdominal Fluid Gram Stain - Final 07/23/20 15:17 Abdominal Fluid Routine Culture - Final No growth after 2 days 07/23/20 15:17 Abdominal Fluid Anaerobic Culture - Final NO GROWTH AFTER 5 DAYS 07/20/20 14:44 Blood - Central Line Blood Culture - Final No growth after 5 days. 07/20/20 14:33 Blood - Central Line Blood Culture - Final No growth after 5 days. 07/18/20 10:54 Blood - Venous Blood Culture - Final No growth after 5 days. 07/18/20 10:41 Blood - Venous Blood Culture - Final No growth after 5 days. 07/18/20 13:34 Abdominal Fluid Gram Stain - Final 07/18/20 13:34 Abdominal Fluid Anaerobic Culture - Final NO GROWTH AFTER 5 DAYS 07/18/20 13:34 Abdominal Fluid Body Fluid Culture - Final No growth after 2 days 07/18/20 Unknown Urine clean catch - Clean Catch Midstream Urine Culture - Final Nevaeh albicans Assessment & Plan Assessment and plan (1) TREMAYNE (acute kidney injury): Problem details: TREMAYNE superimposed on CKD Has been dialysis dependent for > 4 weeks No renal recovery yet Await reinsertion of Permcath resume dialysis Currently on temp catheter Status: Acute Time Spent With Patient Time: Total time spent is greater than 50% in coordination of care (as documented) at patient's floor/unit and/or counseling patient:
[2020-08-02 08:19] LABS: Hematocrit 23.5 % (42-52); Mean Corpuscular Hemoglobin 29.1 pg (27.0-33.0); Mean Corpuscular Volume 85.5 fL (80-98); Mean Platelet Volume 10.8 fL (9.4-12.4); NRBC Pct Auto 0.5 /100WBC (0.0-0.2); Platelet Count 170 X10*3/uL (160-400); Red Blood Count 2.75 X10*6/uL (4.60-5.80); Red Cell Distribution Width 21.4 % (11.0-16.0); White Blood Count 11.4 X10*3/uL (4.8-10.8)
[2020-08-02 08:46] LABS: Anion Gap 20 (12-20); Blood Urea Nitrogen 37 mg/dL (9-16); Calcium 9.1 mg/dL (8.4-10.2); Carbon Dioxide 20 mmol/L (22-29); Chloride 104 mmol/L (96-108); Creatinine Clr Calc Pharmacy 9.4; Estimated Glomerular Filt Rate 9; Glucose Random 100 mg/dL (60-115); Potassium 2.9 mmol/L (3.3-5.1); Sodium 141 mmol/L (135-145)
[2020-08-02 11:18] LABS: Glucose, Whole Blood 110 mg/dL (60-115)
[2020-08-02 11:24] LABS: COVID-19 Test Negative (Negative)
--- NOTE | 2020-08-02 13:52 | P.PNIM_ITS ---
Subjective Subjective Date of Service: 08/02/20 Interval History: the patient was seen and evaluated this morning Laying in bed, feels comfortable overall, abdominal mildly distended but denies any pain Dialysis catheter placed as temporary 1, plan for dialysis today Denies any fever, chills or shortness of breath No reported other overnight events. Systemic review: No fever, chills or weakness No chest pain, palpitation No shortness of breath or coughing No abdominal pain, nausea or vomiting Reports feeling weak overall Physical Exam Vital Signs: Vital Signs: Last Vital Signs Temp 98.8 F 08/02/20 11:08 Pulse 94 08/02/20 11:46 Resp 17 08/02/20 11:08 BP 98/55 L 08/02/20 11:46 Pulse Ox 96 08/02/20 11:08 Body Mass Index 21.9 Const: Other: Constitutional : Alert, oriented to self, not in distress, ill- appearing Neck : Normal inspection, Supple, temporary dialysis catheter in place with no surrounding erythema or bleeding Cardiovascular : RRR, S1 S2, no lower extremity edema Respiratory : Failure bilateral air entry, no crackles, wheezes or rhonchi Gastrointestinal: soft, lax, distended abdomen, no tenderness on palpation Skin : Warm/Dry, buttock wounds but no ulcer, Neurological : Alert & oriented x3, No focal deficit Objective Data Current Medications Generic Name Dose Route Start Last Admin Trade Name Shahzadq PRN Reason Stop Dose Admin Ascorbic Acid 500 mg 07/19/20 09:00 08/02/20 07:41 Ascorbic Acid 500 Mg Tablet PO Not Given DAILY ROJAS Atorvastatin Calcium 40 mg 07/18/20 21:00 08/01/20 20:09 Atorvastatin Calcium 40 Mg Tablet PO 40 mg BEDTIME ROJAS Administration Ferrous Sulfate 324 mg 07/19/20 09:00 08/02/20 07:42 Ferrous Sulfate 324 Mg Tablet.Dr PO Not Given DAILY ROJAS Dextrose/Lactated Ringer's 1,000 mls @ 50 mls/hr 07/31/20 21:00 08/02/20 11:50 D5lr IVCONT Not Given .Q20H ROJAS Midodrine 20 mg 07/31/20 17:00 08/02/20 11:46 Midodrine Hcl 10 Mg Tablet PO 20 mg TIDWM ROJAS Administration Mirtazapine 7.5 mg 07/18/20 21:00 08/01/20 20:09 Mirtazapine 7.5 Mg Tablet PO 7.5 mg BEDTIME [facility] Administration Nystatin 1 appl 07/18/20 21:00 08/02/20 07:36 Nystatin Cream 15 Gm Tube TOPICAL Not Given BID [facility] Protocol Omeprazole 40 mg 07/19/20 06:30 08/02/20 06:44 Omeprazole 40 Mg Capsule.Dr PO 40 mg BID@2730,9350 ROJAS Administration Ondansetron HCl 4 mg 07/18/20 18:17 07/27/20 15:58 Ondansetron Hcl 4 Mg/2 Ml Vial IVPUSH 4 mg Q8H PRN Administration Nausea and Vomiting Pharmacy Consult 1 each 07/18/20 09:22 Consult Rx Perform Med Rec MISCELLANE ONCE PRN Consult order Sodium Bicarbonate 650 mg 07/18/20 21:00 08/02/20 07:42 Sodium Bicarbonate 650 Mg Tablet PO Not Given TID [facility] Sodium Chloride 3 ml 07/18/20 18:17 08/02/20 07:28 0.9 % Sodium Chloride Flush 3 Ml Syringe IVFLUSH Not Given QSHIFT [facility] Sucralfate 1 gm 07/18/20 18:17 08/02/20 10:37 Sucralfate Oral Suspension 1 Gm/10 Ml Oral.Susp PO Not Given QIDACHS [facility] Tamsulosin HCl 0.4 mg 07/18/20 21:00 08/01/20 20:09 Tamsulosin Hcl 0.4 Mg Capsule PO 0.4 mg BEDTIME [facility] Administration Vitamin D 50 mcg 07/19/20 09:00 08/02/20 07:41 Cholecalciferol (Vitamin D3) 25 Mcg Tablet PO Not Given DAILY [facility] Labs CBC & Chem 7: 08/02/20 07:24 08/02/20 07:24 Microbiology Microbiology Results: Microbiology 07/23/20 15:17 Abdominal Fluid Gram Stain - Final 07/23/20 15:17 Abdominal Fluid Routine Culture - Final No growth after 2 days 07/23/20 15:17 Abdominal Fluid Anaerobic Culture - Final NO GROWTH AFTER 5 DAYS 07/20/20 14:44 Blood - Central Line Blood Culture - Final No growth after 5 days. 07/20/20 14:33 Blood - Central Line Blood Culture - Final No growth after 5 days. 07/18/20 10:54 Blood - Venous Blood Culture - Final No growth after 5 days. 07/18/20 10:41 Blood - Venous Blood Culture - Final No growth after 5 days. 07/18/20 13:34 Abdominal Fluid Gram Stain - Final 07/18/20 13:34 Abdominal Fluid Anaerobic Culture - Final NO GROWTH AFTER 5 DAYS 07/18/20 13:34 Abdominal Fluid Body Fluid Culture - Final No growth after 2 days 07/18/20 Unknown Urine clean catch - Clean Catch Midstream Urine Culture - Final Nevaeh albicans Assessment and Plan (1) TREMAYNE (acute kidney injury): Status: Acute (2) Hypotension: Status: Acute (3) Liver cirrhosis: Status: Acute (4) ESRD (end stage renal disease) on dialysis: Status: Acute (5) Weakness: Status: Acute (6) Frailty: Status: Acute Assessment and Plan: 70yo M with cirrhosis with ascites, DM2, anemia, severe malnutrition recent admission 06/30-07/14/20 for anuric TREMAYNE with AGMA/NAGMA progressing to HD dependence 07/03/20 with hepatorenal syndrome, obstructive uropathy without hydronephrosis s/p bilateral ureteral stents re-admitted from SNF due to lethargy, decreased PO, FTT, gross hematuria in Ch, abdominal discomfort, fever Hypotension Secondary to general deconditioning, cirrhosis, decreased p.o. intake, new dialysis Seems to improve with midodrine but he keeps refusing them on occasions Continue to monitor, add fluid boluses as needed for symptomatic hypotension Dialysis catheter problem Patient removed the catheter while delirious Placed a new temporary dialysis catheter by IR= Acute on chronic anemia anemia of chronic disease Hemoglobin improved to 8 after total of 2 units transfusion Continue to monitor H and H Ascites no evidence of SBP resolved, cultures negative, afebrile off antibiotics ESRD/HD dependence Worsened from acute kidney injury due to HRS Started dialysis July 03 midodrine, sodium bicarbonate which patient is refusing them most of the times continue HD as per Nephrology. FTT/moderate protein-calorie malnutrition Ensure cirrhosis previous taps-no evidence of SBP, or malignancy has right portal vein thrombosis, unable to tolerate anticoagulation afp supicious for HCC, follow up mri, not read yet prognosis guarded Tab ascites and as needed DM Better controlled Hold all medications depression/sI: sitter care team eval DVT PPX SCDs Dispo, plan to discharge to SNF with dialysis
--- NOTE | 2020-08-02 14:47 | MHC.CM.PN ---
PHYSICAL THERAPY ATTEMPTED TO MEET WITH PATIENT FOR BEDSIDE EVAL. PATIENT IS OFF UNIT IN HD. HOSPITALIST AND BRIANA CERVANTES MADE AWARE THAT WE WILL RE-ATTEMPT ON Tuesday08/04/20.
[2020-08-02 17:06] LABS: Glucose, Whole Blood 97 mg/dL (60-115)
[2020-08-02] MEDS: Dextrose 5 % and Lactated Ring 1,000 ML 50 ML IVCONT (17:29)
[2020-08-03] VITALS (8 sets, daily range): BP systolic 89–98; BP diastolic 47–57; PULSE 84–96; RESP 15–18; TEMP 36.1–36.8; O2SAT 95–98
[2020-08-03 07:18] LABS: Glucose, Whole Blood 86 mg/dL (60-115)
[2020-08-03 07:28] LABS: Hematocrit 22.4 % (42-52); Hemoglobin 7.9 g/dl (14.0-18.0); Mean Corpuscular HGB Conc 35.3 g/dl (31.0-36.0); Mean Corpuscular Hemoglobin 30.9 pg (27.0-33.0); Mean Corpuscular Volume 87.5 fL (80-98); Mean Platelet Volume 11.1 fL (9.4-12.4); NRBC Pct Auto 0.5 /100WBC (0.0-0.2); Platelet Count 160 X10*3/uL (160-400); Red Blood Count 2.56 X10*6/uL (4.60-5.80); Red Cell Distribution Width 22.5 % (11.0-16.0); White Blood Count 13.9 X10*3/uL (4.8-10.8)
--- NOTE | 2020-08-03 11:01 | P.PNIM_ITS ---
Subjective Subjective Date of Service: 08/03/20 Interval History: the patient was seen and evaluated this morning Laying in bed, feels tired but not complaining, abdominal mildly distended but denies any pain Had difficulties with the temporary dialysis catheter yesterday Denies any fever, chills or shortness of breath No reported other overnight events. Systemic review: No fever, chills or weakness No chest pain, palpitation No shortness of breath or coughing No abdominal pain, nausea or vomiting feeling weak overall Physical Exam Vital Signs: Vital Signs: Last Vital Signs Temp 98.0 F 08/03/20 07:22 Pulse 90 08/03/20 07:48 Resp 15 08/03/20 07:22 BP 98/56 L 08/03/20 07:48 Pulse Ox 98 08/03/20 07:22 Body Mass Index 21.9 Const: Other: Constitutional : Alert, oriented to self, not in distress, ill- appearing Neck : Normal inspection, Supple, temporary dialysis catheter in place with no surrounding erythema or bleeding Cardiovascular : RRR, S1 S2, no lower extremity edema Respiratory : Failure bilateral air entry, no crackles, wheezes or rhonchi Gastrointestinal: soft, lax, mildly distended abdomen, no tenderness on palpation Skin : Warm/Dry, buttock wounds but no ulcer, Neurological : Alert & oriented x3, No focal deficit Objective Data Current Medications Generic Name Dose Route Start Last Admin Trade Name Freq PRN Reason Stop Dose Admin Ascorbic Acid 500 mg 07/19/20 09:00 08/03/20 07:48 Ascorbic Acid 500 Mg Tablet PO Not Given DAILY [facility] Atorvastatin Calcium 40 mg 07/18/20 21:00 08/02/20 20:25 Atorvastatin Calcium 40 Mg Tablet PO Not Given BEDTIME ROJAS Ferrous Sulfate 324 mg 07/19/20 09:00 08/03/20 07:49 Ferrous Sulfate 324 Mg Tablet.Dr PO Not Given DAILY ROJAS Dextrose/Lactated Ringer's 1,000 mls @ 50 mls/hr 07/31/20 21:00 08/03/20 07:49 D5lr IVCONT Not Given .Q20H ROJAS Midodrine 20 mg 07/31/20 17:00 08/03/20 07:48 Midodrine Hcl 10 Mg Tablet PO Not Given TIDWM ROJAS Mirtazapine 7.5 mg 07/18/20 21:00 08/02/20 20:26 Mirtazapine 7.5 Mg Tablet PO Not Given BEDTIME [facility] Nystatin 1 appl 07/18/20 21:00 08/03/20 07:49 Nystatin Cream 15 Gm Tube TOPICAL Not Given BID [facility] Protocol Omeprazole 40 mg 07/19/20 06:30 08/03/20 05:26 Omeprazole 40 Mg Capsule.Dr PO Not Given BID@0630,1630 [facility] Ondansetron HCl 4 mg 07/18/20 18:17 07/27/20 15:58 Ondansetron Hcl 4 Mg/2 Ml Vial IVPUSH 4 mg Q8H PRN Administration Nausea and Vomiting Pharmacy Consult 1 each 07/18/20 09:22 Consult Rx Perform Med Rec MISCELLANE ONCE PRN Consult order Sodium Bicarbonate 650 mg 07/18/20 21:00 08/03/20 07:49 Sodium Bicarbonate 650 Mg Tablet PO Not Given TID [facility] Sodium Chloride 3 ml 07/18/20 18:17 08/03/20 07:15 0.9 % Sodium Chloride Flush 3 Ml Syringe IVFLUSH Not Given QSHIFT [facility] Sucralfate 1 gm 07/18/20 18:17 08/03/20 10:33 Sucralfate Oral Suspension 1 Gm/10 Ml Oral.Susp PO Not Given QIDACHS [facility] Tamsulosin HCl 0.4 mg 07/18/20 21:00 08/02/20 20:26 Tamsulosin Hcl 0.4 Mg Capsule PO Not Given BEDTIME [facility] Vitamin D 50 mcg 07/19/20 09:00 08/03/20 07:49 Cholecalciferol (Vitamin D3) 25 Mcg Tablet PO Not Given DAILY [facility] Labs CBC & Chem 7: 08/03/20 07:18 08/02/20 07:24 Microbiology Microbiology Results: Microbiology 07/23/20 15:17 Abdominal Fluid Gram Stain - Final 07/23/20 15:17 Abdominal Fluid Routine Culture - Final No growth after 2 days 07/23/20 15:17 Abdominal Fluid Anaerobic Culture - Final NO GROWTH AFTER 5 DAYS 07/20/20 14:44 Blood - Central Line Blood Culture - Final No growth after 5 days. 07/20/20 14:33 Blood - Central Line Blood Culture - Final No growth after 5 days. 07/18/20 10:54 Blood - Venous Blood Culture - Final No growth after 5 days. 07/18/20 10:41 Blood - Venous Blood Culture - Final No growth after 5 days. 07/18/20 13:34 Abdominal Fluid Gram Stain - Final 07/18/20 13:34 Abdominal Fluid Anaerobic Culture - Final NO GROWTH AFTER 5 DAYS 07/18/20 13:34 Abdominal Fluid Body Fluid Culture - Final No growth after 2 days 07/18/20 Unknown Urine clean catch - Clean Catch Midstream Urine Culture - Final Nevaeh albicans Assessment and Plan (1) TREMAYNE (acute kidney injury): Status: Acute (2) Hypotension: Status: Acute (3) ESRD (end stage renal disease) on dialysis: Status: Acute (4) Frailty: Status: Acute (5) Severe malnutrition: Status: Acute Assessment and Plan: 70yo M with cirrhosis with ascites, DM2, anemia, severe malnutrition recent admission 06/30-07/14/20 for anuric TREMAYNE with AGMA/NAGMA progressing to HD dependence 07/03/20 with hepatorenal syndrome, obstructive uropathy without hydronephrosis s/p bilateral ureteral stents re-admitted from SNF due to lethargy, decreased PO, FTT, gross hematuria in Ch, abdominal discomfort, fever Hypotension stable Secondary to general deconditioning, cirrhosis, decreased p.o. intake, new dialysis Seems to improve with midodrine but he refuses them on occasions Continue to monitor, add fluid boluses as needed for symptomatic hypotension Dialysis catheter problem Patient removed the catheter while delirious Placed a new temporary dialysis catheter by IR, was not working with during dialysis session To place a PermCath tomorrow Physical deconditioning Patient will need extensive rehabilitation To do physical therapy evaluation Acute on chronic anemia anemia of chronic disease Hemoglobin improved to 8 after total of 2 units transfusion Continue to monitor H and H of Ascites no evidence of SBP resolved, cultures negative, afebrile off antibiotics 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
[2020-08-03 11:22] LABS: Glucose, Whole Blood 90 mg/dL (60-115)
[2020-08-03] MEDS: Dextrose 5 % and Lactated Ring 1,000 ML 50 ML IVCONT (14:03)
[2020-08-03 16:09] LABS: Glucose, Whole Blood 106 mg/dL (60-115)
--- NOTE | 2020-08-03 16:55 | P.PNNP_ITS ---
Subjective Subjective Date of Service: 08/03/20 Interval history: Events noted Had HD yesterday via TEMP IJ catheter Catheter was dysfunctional Physical Exam Vital Signs: Vital Signs: Last Vital Signs Temp 98.3 F 08/03/20 15:54 Pulse 91 08/03/20 15:54 Resp 16 08/03/20 15:54 BP 94/57 L 08/03/20 15:54 Pulse Ox 96 08/03/20 15:54 Body Mass Index 21.9 Const: General: no acute distress Neck: Neck: Yes no JVD Resp: Auscultation: diminished lung sounds GI: Inspection: Yes distended Neuro: Motor exam (neuro): no asterixis Objective Data Labs CBC & Chem 7: 08/03/20 07:18 08/02/20 07:24 Labs: Laboratory Results - last 24 hr 08/02/20 08/03/20 08/03/20 16:56 07:13 07:18 WBC 13.9 H RBC 2.56 L Hgb 7.9 L Hct 22.4 L MCV 87.5 MCH 30.9 MCHC 35.3 RDW 22.5 H Plt Count 160 MPV 11.1 Absolute Nucleated RBC 0.070 H Nucleated RBC % (auto) 0.5 H POC Glucose 97 86 08/03/20 08/03/20 11:10 16:06 WBC RBC Hgb Hct MCV MCH MCHC RDW Plt Count MPV Absolute Nucleated RBC Nucleated RBC % (auto) POC Glucose 90 106 Microbiology Microbiology Results: Microbiology 07/23/20 15:17 Abdominal Fluid Gram Stain - Final 07/23/20 15:17 Abdominal Fluid Routine Culture - Final No growth after 2 days 07/23/20 15:17 Abdominal Fluid Anaerobic Culture - Final NO GROWTH AFTER 5 DAYS 07/20/20 14:44 Blood - Central Line Blood Culture - Final No growth after 5 days. 07/20/20 14:33 Blood - Central Line Blood Culture - Final No growth after 5 days. 07/18/20 10:54 Blood - Venous Blood Culture - Final No growth after 5 days. 07/18/20 10:41 Blood - Venous Blood Culture - Final No growth after 5 days. 07/18/20 13:34 Abdominal Fluid Gram Stain - Final 07/18/20 13:34 Abdominal Fluid Anaerobic Culture - Final NO GROWTH AFTER 5 DAYS 07/18/20 13:34 Abdominal Fluid Body Fluid Culture - Final No growth after 2 days 07/18/20 Unknown Urine clean catch - Clean Catch Midstream Urine Culture - Final Nevaeh albicans Assessment & Plan Assessment and plan (1) TREMAYNE (acute kidney injury): Problem details: 70-year-old male past medical history as above including cirrhosis which appears relatively compensated ,complaining of diarrhea as well as poor oral intake found to have severe ANURIC TREMAYNE and metabolic acidosis now HD dependent Anuric Acute 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: s/p HD started 07/03 Seen AM; Midodrine 20 mg tid; Needs K to be over 4 continue HD support and tap ascites as needed (outpt HD spot at [facility] TTS 1) Shall follow up ; VERY Poor prognosis ? Goals of care Temp IJ catheter needs to be changed to permcath prior to discharge Status: Acute Time Spent With Patient Time: Total time spent is greater than 50% in coordination of care (as documented) at patient's floor/unit and/or counseling patient:
[2020-08-04] VITALS (17 sets, daily range): BP systolic 90–113; BP diastolic 46–64; PULSE 89–98; RESP 16–20; TEMP 36.3–37.6; O2SAT 95–98; BMI 21.9
[2020-08-04 03:56] LABS: Hematocrit 24.6 % (42-52); Hemoglobin 8.5 g/dl (14.0-18.0); Mean Corpuscular HGB Conc 34.6 g/dl (31.0-36.0); Mean Corpuscular Hemoglobin 30.2 pg (27.0-33.0); Mean Corpuscular Volume 87.5 fL (80-98); Mean Platelet Volume 10.9 fL (9.4-12.4); NRBC Pct Auto 0.4 /100WBC (0.0-0.2); Platelet Count 165 X10*3/uL (160-400); Red Blood Count 2.81 X10*6/uL (4.60-5.80); Red Cell Distribution Width 22.8 % (11.0-16.0); White Blood Count 15.8 X10*3/uL (4.8-10.8)
[2020-08-04] MEDS: Pantoprazole Sodium 40 MG/10 ML VIAL IVPUSH (04:07)
[2020-08-04 08:39] LABS: Glucose, Whole Blood 117 mg/dL (60-115)
[2020-08-04 09:10] LABS: Anion Gap 17 (12-20); Blood Urea Nitrogen 31 mg/dL (9-16); Calcium 8.8 mg/dL (8.4-10.2); Carbon Dioxide 17 mmol/L (22-29); Chloride 108 mmol/L (96-108); Creatinine Clr Calc Pharmacy 10.5; Estimated Glomerular Filt Rate 10; Glucose Random 114 mg/dL (60-115); Potassium 3.3 mmol/L (3.3-5.1); Sodium 139 mmol/L (135-145)
[2020-08-04 10:03] LABS: Glucose, Whole Blood 103 mg/dL (60-115)
[2020-08-04 10:03] LABS: Glucose, Whole Blood 99 mg/dL (60-115)
--- NOTE | 2020-08-04 10:17 | P.PNIM_ITS ---
Subjective Subjective Date of Service: 08/04/20 Interval History: the patient was seen and evaluated this morning Laying in bed, feels tired as he had couple of episodes of bloody vomitus o vernight Hemoglobin remained stable Reported worsening abdominal pain and distension Denies any fever, chills or shortness of breath No reported other overnight events. Systemic review: No fever, chills but have generalized weakness No chest pain, palpitation No shortness of breath or coughing Reporting abdominal pain, with vomiting of blood feeling weak overall Physical Exam Vital Signs: Vital Signs: Last Vital Signs Temp 98.1 F 08/04/20 07:29 Pulse 95 08/04/20 08:30 Resp 17 08/04/20 07:29 BP 90/54 L 08/04/20 08:30 Pulse Ox 95 08/04/20 07:40 Body Mass Index 21.9 Const: Other: Constitutional : Alert, oriented to self, not in distress, ill- appearing Neck : Normal inspection, Supple, temporary dialysis catheter in place with no surrounding erythema or bleeding Cardiovascular : RRR, S1 S2, no lower extremity edema Respiratory : Failure bilateral air entry, no crackles, wheezes or rhonchi Gastrointestinal: soft, lax, for moderately distended abdomen, generalized abdominal tenderness on palpation Skin : Warm/Dry, buttock wounds but no ulcer, Neurological : Alert & oriented x3, No focal deficit Objective Data Current Medications Generic Name Dose Route Start Last Admin Trade Name Freq PRN Reason Stop Dose Admin Ascorbic Acid 500 mg 07/19/20 09:00 08/04/20 08:30 Ascorbic Acid 500 Mg Tablet PO Not Given DAILY [facility] Atorvastatin Calcium 40 mg 07/18/20 21:00 08/03/20 21:47 Atorvastatin Calcium 40 Mg Tablet PO Not Given BEDTIME ROJAS Ferrous Sulfate 324 mg 07/19/20 09:00 08/04/20 08:30 Ferrous Sulfate 324 Mg Tablet. PO Not Given DAILY [facility] Phytonadione 10 mg/ Sodium 51 mls @ 51 mls/hr 08/04/20 10:00 Chloride IV 08/04/20 10:59 ONCE ONE Ceftriaxone Sodium 1 gm/ 50 mls @ 100 mls/hr 08/04/20 10:15 Sodium Chloride IV Q24H ROJAS Albumin Human 100 mls @ 100 mls/hr 08/04/20 10:15 Kedbumin 25 % IV 08/04/20 12:14 Q1H ROJAS Midodrine 20 mg 07/31/20 17:00 08/04/20 08:30 Midodrine Hcl 10 Mg Tablet PO Not Given TIDWM [facility] Mirtazapine 7.5 mg 07/18/20 21:00 08/03/20 21:47 Mirtazapine 7.5 Mg Tablet PO Not Given BEDTIME [facility] Nystatin 1 appl 07/18/20 21:00 08/04/20 08:30 Nystatin Cream 15 Gm Tube TOPICAL Not Given BID [facility] Protocol Omeprazole 40 mg 07/19/20 06:30 08/04/20 06:06 Omeprazole 40 Mg Capsule.Dr PO Not Given BID@0630,1630 [facility] Ondansetron HCl 4 mg 07/18/20 18:17 07/27/20 15:58 Ondansetron Hcl 4 Mg/2 Ml Vial IVPUSH 4 mg Q8H PRN Administration Nausea and Vomiting Pharmacy Consult 1 each 07/18/20 09:22 Consult Rx Perform Med Rec MISCELLANE ONCE PRN Consult order Sodium Bicarbonate 650 mg 07/18/20 21:00 08/04/20 08:31 Sodium Bicarbonate 650 Mg Tablet PO Not Given TID [facility] Sodium Chloride 3 ml 07/18/20 18:17 08/04/20 07:04 0.9 % Sodium Chloride Flush 3 Ml Syringe IVFLUSH Not Given QSHIFT [facility] Sucralfate 1 gm 07/18/20 18:17 08/04/20 07:04 Sucralfate Oral Suspension 1 Gm/10 Ml Oral.Susp PO Not Given QIDACHS [facility] Tamsulosin HCl 0.4 mg 07/18/20 21:00 08/03/20 21:47 Tamsulosin Hcl 0.4 Mg Capsule PO Not Given BEDTIME [facility] Vitamin D 50 mcg 07/19/20 09:00 08/04/20 08:30 Cholecalciferol (Vitamin D3) 25 Mcg Tablet PO Not Given DAILY [facility] Labs CBC & Chem 7: 08/04/20 03:40 08/04/20 08:25 Microbiology Microbiology Results: Microbiology 07/23/20 15:17 Abdominal Fluid Gram Stain - Final 07/23/20 15:17 Abdominal Fluid Routine Culture - Final No growth after 2 days 07/23/20 15:17 Abdominal Fluid Anaerobic Culture - Final NO GROWTH AFTER 5 DAYS 07/20/20 14:44 Blood - Central Line Blood Culture - Final No growth after 5 days. 07/20/20 14:33 Blood - Central Line Blood Culture - Final No growth after 5 days. 07/18/20 10:54 Blood - Venous Blood Culture - Final No growth after 5 days. 07/18/20 10:41 Blood - Venous Blood Culture - Final No growth after 5 days. 07/18/20 13:34 Abdominal Fluid Gram Stain - Final 07/18/20 13:34 Abdominal Fluid Anaerobic Culture - Final NO GROWTH AFTER 5 DAYS 07/18/20 13:34 Abdominal Fluid Body Fluid Culture - Final No growth after 2 days 07/18/20 Unknown Urine clean catch - Clean Catch Midstream Urine Culture - Final Nevaeh albicans Assessment and Plan (1) TREMAYNE (acute kidney injury): Status: Acute (2) Hypotension: Status: Acute (3) Hematemesis: Status: Acute (4) Liver cirrhosis: Status: Acute (5) ESRD (end stage renal disease) on dialysis: Status: Acute (6) Frailty: Status: Acute Assessment and Plan: 70yo M with cirrhosis with ascites, DM2, anemia, severe malnutrition recent admission 06/30-07/14/20 for anuric TREMAYNE with AGMA/NAGMA progressing to HD dependence 07/03/20 with hepatorenal syndrome, obstructive uropathy without hydronephrosis s/p bilateral ureteral stents re-admitted from SNF due to lethargy, decreased PO, FTT, gross hematuria in Ch, abdominal discomfort, fever Hematemesis concerning for esophageal varices bleed Hemoglobin stable overnight INR 1.3, received dose of vitamin K Continue PPI, octreotide GI to do urgent EGD this morning Large Ascites Abdominal pain Concerning for SBP To do paracentesis today with fluid analysis To start IV antibiotics of ceftriaxone Hypotension stable Secondary to general deconditioning, cirrhosis, decreased p.o. intake, new dialysis Seems to improve with midodrine but he refuses them on occasions To give albumin before procedure Continue to monitor, add fluid boluses as needed for symptomatic hypotension Dialysis catheter problem Patient removed the catheter while delirious Placed a new temporary dialysis catheter by IR, was not working with during dialysis session To place a PermCath by IR Physical deconditioning Patient will need extensive rehabilitation physical therapy evaluation Acute on chronic anemia anemia of chronic disease Hemoglobin improved to 8 after total of 2 units transfusion Continue to monitor H and H of 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 FTT Severe protein-calorie malnutrition Ensure added Quality Assurance Specialist following cirrhosis previous taps-no evidence of SBP, or malignancy has right portal vein thrombosis, unable to tolerate anticoagulation afp supicious for HCC, MRI not showing any evidence of carcinoma prognosis guarded Tap ascites and as needed DM Better controlled Hold all medications depression/sI: sitter care team eval DVT PPX SCDs Dispo, plan to discharge to SNF with dialysis
[2020-08-04] MEDS: Phytonadione (Vit K1) 10 MG in 0.9 % Sodium Chloride 50 ML 51 MG IV (10:41)
[2020-08-04] MEDS: Albumin Human 25 % 100 ML IV ×2 (11:03→12:17)
[2020-08-04] MEDS: Sucralfate Oral Suspension 1 GM/10 ML ORAL.SUSP PO (11:09)
[2020-08-04 11:14] LABS: Glucose, Whole Blood 91 mg/dL (60-115)
--- NOTE | 2020-08-04 11:40 | MHC.CM.PN ---
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 /
[2020-08-04] MEDS: cefTRIAXone sodium 1 GM in 0.9 % Sodium Chloride 50 ML IV (12:17)
--- NOTE | 2020-08-04 12:20 | PM.PNNEP ---
Subjective Subjective Date of Service: 08/04/20 Interval history: Seen and examiend Scheduled [facility] today Physical Exam Vital Signs: Vital Signs: Last Vital Signs Temp 98.9 F 08/04/20 11:17 Pulse 98 08/04/20 11:17 Resp 16 08/04/20 11:17 BP 103/60 08/04/20 11:17 Pulse Ox 96 08/04/20 11:17 Body Mass Index 21.9 Const: Other: Cachectic General: no acute distress, alert and awake; No acute distress HENMT: Head: Yes normocephalic and Yes atraumatic Neck: Neck: Yes supple and Yes no JVD Resp: Effort & Inspection: decreased respiratory effort Auscultation: diminished lung sounds Cardio: Rate: regular rate Heart sounds: S1 normal heart sound present, S2 normal heart sound present and no rubs GI: Other: Ascites + Inspection: Yes distended Palpation (GI): Soft to palpation and nontender Percussion: Yes Fluid wave present Neuro: General: moves all extremities Motor exam (neuro): no asterixis Extrem: General: Yes edema Objective Data Labs CBC & Chem 7: 08/04/20 03:40 08/04/20 08:25 Labs: Laboratory Results - last 24 hr 08/02/20 08/03/20 08/03/20 20:09 16:06 20:12 WBC RBC Hgb Hct MCV MCH MCHC RDW Plt Count MPV Absolute Nucleated RBC Nucleated RBC % (auto) Sodium Potassium Chloride Carbon Dioxide Anion Gap BUN Creatinine Estim Creat Clear Calc Estimated GFR POC Glucose 103 106 99 Random Glucose Calcium 08/04/20 08/04/20 08/04/20 03:40 08:18 08:25 WBC 15.8 H RBC 2.81 L Hgb 8.5 L Hct 24.6 L MCV 87.5 MCH 30.2 MCHC 34.6 RDW 22.8 H Plt Count 165 MPV 10.9 Absolute Nucleated RBC 0.060 H Nucleated RBC % (auto) 0.4 H Sodium 139 Potassium 3.3 Chloride 108 Carbon Dioxide 17 L Anion Gap 17 BUN 31 H Creatinine 5.52 H* Estim Creat Clear Calc 10.5 Estimated GFR 10 POC Glucose 117 H Random Glucose 114 Calcium 8.8 08/04/20 11:09 WBC RBC Hgb Hct MCV MCH MCHC RDW Plt Count MPV Absolute Nucleated RBC Nucleated RBC % (auto) Sodium Potassium Chloride Carbon Dioxide Anion Gap BUN Creatinine Estim Creat Clear Calc Estimated GFR POC Glucose 91 Random Glucose Calcium Microbiology Microbiology Results: Microbiology 07/23/20 15:17 Abdominal Fluid Gram Stain - Final 07/23/20 15:17 Abdominal Fluid Routine Culture - Final No growth after 2 days 07/23/20 15:17 Abdominal Fluid Anaerobic Culture - Final NO GROWTH AFTER 5 DAYS 07/20/20 14:44 Blood - Central Line Blood Culture - Final No growth after 5 days. 07/20/20 14:33 Blood - Central Line Blood Culture - Final No growth after 5 days. 07/18/20 10:54 Blood - Venous Blood Culture - Final No growth after 5 days. 07/18/20 10:41 Blood - Venous Blood Culture - Final No growth after 5 days. 07/18/20 13:34 Abdominal Fluid Gram Stain - Final 07/18/20 13:34 Abdominal Fluid Anaerobic Culture - Final NO GROWTH AFTER 5 DAYS 07/18/20 13:34 Abdominal Fluid Body Fluid Culture - Final No growth after 2 days 07/18/20 Unknown Urine clean catch - Clean Catch Midstream Urine Culture - Final Nevaeh albicans Assessment & Plan Assessment and plan (1) TREMAYNE (acute kidney injury): Status: Acute Assessment and Plan: TREMAYNE HD dependent: s/p kidney Bx which was surprisingly unrevealing...supect d/t HRS and ATN combination Hemoaccess issues: cont to pull out ESLD Ascites Incr WBC Anemia GOC: need to see if any change in GOC given severity of chronic med prob and his inability to comply with treatment..taking meds etc REC: new HD cath tunneled is preferrable; HD tomorrow; Tap belly as needed; abx as noted Time Spent With Patient Time: Total time spent is greater than 50% in coordination of care (as documented) at patient's floor/unit and/or counseling patient:
--- NOTE | 2020-08-04 13:29 | P.PNGI_ITS ---
Subjective Subjective Date of Service: 08/04/20 Interval History: confused c/o abdo distention noted to have coffee ground emesis by nursing staff but HGB stable eating minimally Physical Exam Vital Signs: Vital Signs: Last Vital Signs Temp 99.7 F 08/04/20 13:01 Pulse 98 08/04/20 13:01 Resp 16 08/04/20 13:01 BP 113/64 08/04/20 13:01 Pulse Ox 96 08/04/20 13:01 Body Mass Index 21.9 Const: General: ill appearing and tired appearing Orientation/consciousnes s: oriented to person, No oriented to place and No oriented to time Resp: Effort & Inspection: normal respiratory effort Auscultation: clear to auscultation bilaterally Cardio: Jugular venous distension: no JVD Rate: regular rate Rhythm: regular rhythm GI: Inspection: Yes distended Palpation (GI): Firmness to palpation present (GI) Percussion: Yes dullness to percussion and Yes Fluid wave present Skin: Hair: general thinning Neuro: General: oriented to person, No oriented to place and No oriented to time Psych: Appearance: disheveled Affect: Indifferent affect present Objective Data Labs CBC & Chem 7: 08/04/20 03:40 08/04/20 08:25 Labs: Laboratory Results - last 24 hr 08/02/20 08/03/20 08/03/20 20:09 16:06 20:12 WBC RBC Hgb Hct MCV MCH MCHC RDW Plt Count MPV Absolute Nucleated RBC Nucleated RBC % (auto) Sodium Potassium Chloride Carbon Dioxide Anion Gap BUN Creatinine Estim Creat Clear Calc Estimated GFR POC Glucose 103 106 99 Random Glucose Calcium 08/04/20 08/04/20 08/04/20 03:40 08:18 08:25 WBC 15.8 H RBC 2.81 L Hgb 8.5 L Hct 24.6 L MCV 87.5 MCH 30.2 MCHC 34.6 RDW 22.8 H Plt Count 165 MPV 10.9 Absolute Nucleated RBC 0.060 H Nucleated RBC % (auto) 0.4 H Sodium 139 Potassium 3.3 Chloride 108 Carbon Dioxide 17 L Anion Gap 17 BUN 31 H Creatinine 5.52 H* Estim Creat Clear Calc 10.5 Estimated GFR 10 POC Glucose 117 H Random Glucose 114 Calcium 8.8 08/04/20 11:09 WBC RBC Hgb Hct MCV MCH MCHC RDW Plt Count MPV Absolute Nucleated RBC Nucleated RBC % (auto) Sodium Potassium Chloride Carbon Dioxide Anion Gap BUN Creatinine Estim Creat Clear Calc Estimated GFR POC Glucose 91 Random Glucose Calcium Microbiology Microbiology Results: Microbiology 07/23/20 15:17 Abdominal Fluid Gram Stain - Final 07/23/20 15:17 Abdominal Fluid Routine Culture - Final No growth after 2 days 07/23/20 15:17 Abdominal Fluid Anaerobic Culture - Final NO GROWTH AFTER 5 DAYS 07/20/20 14:44 Blood - Central Line Blood Culture - Final No growth after 5 days. 07/20/20 14:33 Blood - Central Line Blood Culture - Final No growth after 5 days. 07/18/20 10:54 Blood - Venous Blood Culture - Final No growth after 5 days. 07/18/20 10:41 Blood - Venous Blood Culture - Final No growth after 5 days. 07/18/20 13:34 Abdominal Fluid Gram Stain - Final 07/18/20 13:34 Abdominal Fluid Anaerobic Culture - Final NO GROWTH AFTER 5 DAYS 07/18/20 13:34 Abdominal Fluid Body Fluid Culture - Final No growth after 2 days 07/18/20 Unknown Urine clean catch - Clean Catch Midstream Urine Culture - Final Nevaeh albicans Progress Note: A&P Assessment and plan (1) Hematemesis: Status: Acute (2) GI bleed: Status: Acute (3) Severe malnutrition: Status: Acute (4) Liver cirrhosis: Status: Acute Assessment and Plan: 1/ Failure to thrive with severe malnutrition 2/ end stage liver and renal failure --recent imaging incl CT and MRI have not confirmed HCC but portal v thrombus has been noted, 3/ confusion 2/2 to above 4/ ascites and distention 5/ coffee ground emesis -could be from esophagitis, or varices, gastritis PLAN: 1/ EGD today for assessment of varices 2/ can give albumin for BP, and can cont midodrine 3/ tap ascites and make sure no SBP--diagnostic and therapeutic 4/ overall prognosis is poor, need to d/w family about goals of care. 5/ encourage PO intake, may need TPN, G tube placement with endoscopy not a good option due to varices Fall Risk Details Current Medications: Current Medications Generic Name Dose Route Start Last Admin Trade Name Freq PRN Reason Stop Dose Admin Ascorbic Acid 500 mg 07/19/20 09:00 08/04/20 08:30 Ascorbic Acid 500 Mg Tablet PO Not Given DAILY [facility] Atorvastatin Calcium 40 mg 07/18/20 21:00 08/03/20 21:47 Atorvastatin Calcium 40 Mg Tablet PO Not Given BEDTIME [facility] Ferrous Sulfate 324 mg 07/19/20 09:00 08/04/20 08:30 Ferrous Sulfate 324 Mg Tablet. PO Not Given DAILY [facility] Ceftriaxone Sodium 1 gm/ 50 mls @ 100 mls/hr 08/04/20 12:00 08/04/20 13:06 Sodium Chloride IV Infused Q24H [facility] Infusion Midodrine 20 mg 07/31/20 17:00 08/04/20 12:24 Midodrine Hcl 10 Mg Tablet PO Not Given TIDWM [facility] Mirtazapine 7.5 mg 07/18/20 21:00 08/03/20 21:47 Mirtazapine 7.5 Mg Tablet PO Not Given BEDTIME [facility] Nystatin 1 appl 07/18/20 21:00 08/04/20 08:30 Nystatin Cream 15 Gm Tube TOPICAL Not Given BID [facility] Protocol Omeprazole 40 mg 07/19/20 06:30 08/04/20 06:06 Omeprazole 40 Mg Capsule. PO Not Given BID@0630,1630 [facility] Ondansetron HCl 4 mg 07/18/20 18:17 07/27/20 15:58 Ondansetron Hcl 4 Mg/2 Ml Vial IVPUSH 4 mg Q8H PRN Administration Nausea and Vomiting Pharmacy Consult 1 each 07/18/20 09:22 Consult Rx Perform Med Rec MISCELLANE ONCE PRN Consult order Sodium Bicarbonate 650 mg 07/18/20 21:00 08/04/20 08:31 Sodium Bicarbonate 650 Mg Tablet PO Not Given TID [facility] Sodium Chloride 3 ml 07/18/20 18:17 08/04/20 07:04 0.9 % Sodium Chloride Flush 3 Ml Syringe IVFLUSH Not Given QSHIFT [facility] Sucralfate 1 gm 07/18/20 18:17 08/04/20 11:09 Sucralfate Oral Suspension 1 Gm/10 Ml Oral.Susp PO 1 gm QIDACHS [facility] Administration Tamsulosin HCl 0.4 mg 07/18/20 21:00 08/03/20 21:47 Tamsulosin Hcl 0.4 Mg Capsule PO Not Given BEDTIME [facility] Vitamin D 50 mcg 07/19/20 09:00 08/04/20 08:30 Cholecalciferol (Vitamin D3) 25 Mcg Tablet PO Not Given DAILY [facility] Time Spent With Patient Time: Total time spent is greater than 50% in coordination of care (as documented) at patient's floor/unit and/or counseling patient: Time with patient: 15 - 24 minutes
--- NOTE | 2020-08-04 13:29 | MHC.SHP ---
Pre-Procedural Eval Section A The patient is an INPATIENT: Yes The History & Physical has been completed within 30 days and I have reviewed it.: Yes Section B Chief Complaint: failure to thrive fever Allergies: Allergies Allergy/AdvReac Type Severity Reaction Status Date / Time No Known Allergies Allergy Verified 08/04/20 12:51 Plan I have reviewed the history and physical and performed a pertinent physical examination on my patient. No changes have occurred unless specified.
--- NOTE | 2020-08-04 14:07 | HO.ANESPROP2 ---
[facility] Active Problems Active Problems: All Active Problems (Updated 08/04/20 @ 10:19 by Sera Frost MD) Hematemesis (Acute) Hypotension (Acute) Candidal dermatitis (Acute) Liver cirrhosis (Acute) Fever (Acute) Hypokalemia (Acute) TREMAYNE (acute kidney injury) (Acute) Fever (Acute) Anemia in chronic kidney disease (Acute) ESRD (end stage renal disease) on dialysis (Acute) Hepatorenal failure (Acute) Weakness (Acute) Frailty (Acute) Severe malnutrition (Acute) Metabolic acidosis (Acute) GI bleed (Acute) Acute renal failure (Acute) Acute dehydration (Acute) Adult failure to thrive (Acute) Ascites (Acute) 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 (Acute) Hyperlipidemia LDL goal <100 (Acute) Essential hypertension (Acute) Diarrhea (Acute) Past Medical History Medical History Anemia Anemia in chronic kidney disease Ascites Cirrhosis Esophageal varices ESRD (end stage renal disease) on dialysis Essential hypertension Frailty GERD (gastroesophageal reflux disease) GI bleed Hyperlipidemia LDL goal <100 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 Type 2 diabetes mellitus with hyperglycemia Weakness Family History Family History Father Diabetes Mother Breast cancer Diabetes Cardiovascular disease Brother Diabetes Sister Diabetes Surgical History Surgical History History of liver biopsy Social History Social History Household Members: Family Housing: Apartment Alcohol intake: former Smoking Status: Former smoker Tobacco Type: Cigarette Packs Per Day: 2 Cigarettes Per Day: 40.0 Second Hand Smoke Exposure: No Advance Directives Date on File: 07/18/20 service: No Current occupational status: retired Meds Allergies Allergy/AdvReac Type Severity Reaction Status Date / Time No Known Allergies Allergy Verified 08/04/20 12:51 Active Medications: Current Medications Generic Name Dose Route Start Last Admin Trade Name Freq PRN Reason Stop Dose Admin Ascorbic Acid 500 mg 07/19/20 09:00 08/04/20 08:30 Ascorbic Acid 500 Mg Tablet PO Not Given DAILY [facility] Atorvastatin Calcium 40 mg 07/18/20 21:00 08/03/20 21:47 Atorvastatin Calcium 40 Mg Tablet PO Not Given BEDTIME [facility] Ferrous Sulfate 324 mg 07/19/20 09:00 08/04/20 08:30 Ferrous Sulfate 324 Mg Tablet. PO Not Given DAILY [facility] Ceftriaxone Sodium 1 gm/ 50 mls @ 100 mls/hr 08/04/20 12:00 08/04/20 13:06 Sodium Chloride IV Infused Q24H [facility] Infusion Midodrine 20 mg 07/31/20 17:00 08/04/20 12:24 Midodrine Hcl 10 Mg Tablet PO Not Given TIDWM [facility] Mirtazapine 7.5 mg 07/18/20 21:00 08/03/20 21:47 Mirtazapine 7.5 Mg Tablet PO Not Given BEDTIME [facility] Nystatin 1 appl 07/18/20 21:00 08/04/20 08:30 Nystatin Cream 15 Gm Tube TOPICAL Not Given BID [facility] Protocol Omeprazole 40 mg 07/19/20 06:30 08/04/20 06:06 Omeprazole 40 Mg Capsule. PO Not Given BID@0630,1630 [facility] Ondansetron HCl 4 mg 07/18/20 18:17 07/27/20 15:58 Ondansetron Hcl 4 Mg/2 Ml Vial IVPUSH 4 mg Q8H PRN Administration Nausea and Vomiting Pharmacy Consult 1 each 07/18/20 09:22 Consult Rx Perform Med Rec MISCELLANE ONCE PRN Consult order Sodium Bicarbonate 650 mg 07/18/20 21:00 08/04/20 08:31 Sodium Bicarbonate 650 Mg Tablet PO Not Given TID [facility] Sodium Chloride 3 ml 07/18/20 18:17 08/04/20 07:04 0.9 % Sodium Chloride Flush 3 Ml Syringe IVFLUSH Not Given QSHIFT [facility] Sucralfate 1 gm 07/18/20 18:17 08/04/20 11:09 Sucralfate Oral Suspension 1 Gm/10 Ml Oral.Susp PO 1 gm QIDACHS [facility] Administration Tamsulosin HCl 0.4 mg 07/18/20 21:00 08/03/20 21:47 Tamsulosin Hcl 0.4 Mg Capsule PO Not Given BEDTIME [facility] Vitamin D 50 mcg 07/19/20 09:00 08/04/20 08:30 Cholecalciferol (Vitamin D3) 25 Mcg Tablet PO Not Given DAILY [facility] Home Medications Medication Instructions Recorded Confirmed Last Taken Type ascorbic acid (vitamin C) 500 mg 500 mg PO DAILY 02/19/20 07/18/20 07/17/20 History tablet cholecalciferol (vitamin D3) 50 50 mcg PO DAILY 02/19/20 07/18/20 07/17/20 History mcg (2,000 unit) tablet ferrous sulfate 325 mg (65 mg 325 mg PO DAILY 02/19/20 07/18/20 07/17/20 History iron) tablet tamsulosin 0.4 mg capsule 0.4 mg PO BEDTIME 02/19/20 07/18/20 07/17/20 History atorvastatin 40 mg tablet 40 mg PO BEDTIME tab 03/25/20 07/18/20 07/17/20 History insulin aspart U-100 [Novolog 6 unit SUBCUT TID 06/30/20 07/18/20 07/17/20 History Flexpen U-100 Insulin] sucralfate 10 ml PO QIDACHS 06/30/20 07/18/20 07/17/20 History empagliflozin [Jardiance] 25 mg PO DAILY 07/18/20 07/18/20 07/17/20 History insulin glargine [Semglee Pen 14 unit SUBCUT QAM 07/18/20 07/18/20 07/17/20 History U-100 Insulin] mirtazapine 7.5 mg PO BEDTIME 07/18/20 07/18/20 07/17/20 History nystatin 1 appl TOPICAL BID 07/18/20 07/18/20 07/17/20 History omeprazole 40 mg PO BID 07/18/20 07/18/20 07/17/20 History ondansetron HCl [Zofran] 4 mg PO Q8H PRN 07/18/20 07/18/20 Unknown History Exam Exam Date and Time: August 04, 2020 1407 Height,Weight and Vital Signs: Height 5 ft 4 in Weight 58 kg Last Vital Signs Temp 99.7 F 08/04/20 13:01 Pulse 98 08/04/20 13:01 Resp 16 08/04/20 13:01 BP 113/64 08/04/20 13:01 Pulse Ox 96 08/04/20 13:01 Pertinent Lab Results Pertinent Lab Results: Laboratory Tests 07/18/20 07/18/20 07/18/20 09:08 10:39 10:40 WBC 11.4 H RBC 2.79 L Hgb 8.1 L Hct 25.7 L MCV 92.1 MCH 29.0 MCHC 31.5 RDW 21.4 H Plt Count 197 MPV 10.0 Immature Gran % (Auto) 0.5 H Neut % (Auto) 81.0 H Lymph % (Auto) 10.0 L [place] % (Auto) 6.2 Eos % (Auto) 1.6 Baso % (Auto) 0.7 Lymph # (Auto) 1.1 L [place] # (Auto) 0.7 Eos # (Auto) 0.2 Baso # (Auto) 0.1 Abs Immat Gran (auto) 0.06 H Absolute Neuts (auto) 9.3 H Absolute Nucleated RBC 0.000 Nucleated RBC % (auto) 0.0 Smear Tech's Comments PT INR APTT Sodium Potassium Chloride Carbon Dioxide Anion Gap BUN Creatinine Estim Creat Clear Calc Estimated GFR POC Glucose 68 Random Glucose Fasting Glucose Estimat Average Glucose Hemoglobin A1c % Lactic Acid 1.7 Lactic Acid Fup @ 2Hr Lactic Acid Fup @ 4Hr Calcium Magnesium Iron TIBC % Saturation Unsat Iron Binding Ferritin Total Bilirubin Direct Bilirubin AST ALT Alkaline Phosphatase Total Protein Albumin Lipase Alpha Fetoprotein Vitamin B12 Folate Urine Color Urine Appearance Urine pH Ur Specific [place] Urine Protein Urine Glucose (UA) Urine Ketones Urine Blood Urine Nitrite Ur Leukocyte Esterase Urine RBC Urine WBC Ur Squamous Epith Cells Urine Bacteria Urine Mucus Urine Yeast Peritoneal WBC Peritoneal RBC Periton Neutrophils Periton Lymphocytes Peritoneal Monocytes Peritoneal Eosinophils Peritoneal Other Cells Peritoneal Tot Protein Peritoneal LDH Peritoneal Glucose C. difficile Toxin A&B C. difficile Antigen C. difficile Interpret Coronavirus (PCR) COVID-19 ([facility]) COVID-19 Clin Com HIV 1&2 Ab/P24 Ag 4thGn Influenza Type A (PCR) Influenza Type B (PCR) RSV RNA Qual (PCR) Blood Type Antibody Screen Crossmatch 07/18/20 07/18/20 07/18/20 10:40 10:41 13:13 WBC RBC Hgb Hct MCV MCH MCHC RDW Plt Count MPV Immature Gran % (Auto) Neut % (Auto) Lymph % (Auto) [place] % (Auto) Eos % (Auto) Baso % (Auto) Lymph # (Auto) [place] # (Auto) Eos # (Auto) Baso # (Auto) Abs Immat Gran (auto) Absolute Neuts (auto) Absolute Nucleated RBC Nucleated RBC % (auto) Smear Tech's Comments PT INR APTT Sodium 141 Potassium 2.8 L Chloride 101 Carbon Dioxide 20 L Anion Gap 23 H BUN 17 H Creatinine 4.74 H* Estim Creat Clear Calc 12.2 Estimated GFR 12 POC Glucose Random Glucose 79 Fasting Glucose Estimat Average Glucose Hemoglobin A1c % Lactic Acid Lactic Acid Fup @ 2Hr Lactic Acid Fup @ 4Hr Calcium 8.5 Magnesium 2.2 Iron TIBC % Saturation Unsat Iron Binding Ferritin Total Bilirubin 1.5 H Direct Bilirubin 1.3 H AST 117 H ALT 19 Alkaline Phosphatase 680 H Total Protein 6.8 Albumin 3.3 L Lipase 90 H Alpha Fetoprotein Vitamin B12 Folate Urine Color Urine Appearance Urine pH Ur Specific [place] Urine Protein Urine Glucose (UA) Urine Ketones Urine Blood Urine Nitrite Ur Leukocyte Esterase Urine RBC Urine WBC Ur Squamous Epith Cells Urine Bacteria Urine Mucus Urine Yeast Peritoneal WBC Peritoneal RBC Periton Neutrophils Periton Lymphocytes Peritoneal Monocytes Peritoneal Eosinophils Peritoneal Other Cells Peritoneal Tot Protein Peritoneal LDH Peritoneal Glucose C. difficile Toxin A&B C. difficile Antigen C. difficile Interpret Coronavirus (PCR) NEGATIVE COVID-19 ([facility]) COVID-19 Clin Com HIV 1&2 Ab/P24 Ag 4thGn Influenza Type A (PCR) NEGATIVE Influenza Type B (PCR) NEGATIVE RSV RNA Qual (PCR) NEGATIVE Blood Type Antibody Screen Crossmatch 07/18/20 07/18/20 07/18/20 13:15 13:38 14:14 WBC RBC Hgb Hct MCV MCH MCHC RDW Plt Count MPV Immature Gran % (Auto) Neut % (Auto) Lymph % (Auto) [place] % (Auto) Eos % (Auto) Baso % (Auto) Lymph # (Auto) [place] # (Auto) Eos # (Auto) Baso # (Auto) Abs Immat Gran (auto) Absolute Neuts (auto) Absolute Nucleated RBC Nucleated RBC % (auto) Smear Tech's Comments PT 14.1 H INR 1.2 H APTT 33.2 Sodium Potassium Chloride Carbon Dioxide Anion Gap BUN Creatinine Estim Creat Clear Calc Estimated GFR POC Glucose Random Glucose Fasting Glucose Estimat Average Glucose Hemoglobin A1c % Lactic Acid Lactic Acid Fup @ 2Hr Lactic Acid Fup @ 4Hr Calcium Magnesium Iron TIBC % Saturation Unsat Iron Binding Ferritin Total Bilirubin Direct Bilirubin AST ALT Alkaline Phosphatase Total Protein Albumin Lipase Alpha Fetoprotein Vitamin B12 Folate Urine Color BROWN Urine Appearance TURBID Urine pH 7.0 Ur Specific [place] 1.020 Urine Protein 3+ H Urine Glucose (UA) NEG Urine Ketones 15 Urine Blood 3+ H Urine Nitrite POS H Ur Leukocyte Esterase 3+ H Urine RBC TNTC H Urine WBC TNTC H Ur Squamous Epith Cells 1+ Urine Bacteria TRACE Urine Mucus 1+ Urine Yeast 1+ Peritoneal WBC 0.089 Peritoneal RBC < 0.002 Periton Neutrophils 4 Periton Lymphocytes 75 Peritoneal Monocytes 15 Peritoneal Eosinophils Peritoneal Other Cells 6 Peritoneal Tot Protein Peritoneal LDH Peritoneal Glucose C. difficile Toxin A&B C. difficile Antigen C. difficile Interpret Coronavirus (PCR) COVID-19 ([facility]) COVID-19 Clin Com HIV 1&2 Ab/P24 Ag 4thGn Influenza Type A (PCR) Influenza Type B (PCR) RSV RNA Qual (PCR) Blood Type Antibody Screen Crossmatch 07/18/20 07/18/20 07/18/20 17:35 18:13 21:04 WBC RBC Hgb Hct MCV MCH MCHC RDW Plt Count MPV Immature Gran % (Auto) Neut % (Auto) Lymph % (Auto) [place] % (Auto) Eos % (Auto) Baso % (Auto) Lymph # (Auto) [place] # (Auto) Eos # (Auto) Baso # (Auto) Abs Immat Gran (auto) Absolute Neuts (auto) Absolute Nucleated RBC Nucleated RBC % (auto) Smear Tech's Comments PT INR APTT Sodium Potassium Chloride Carbon Dioxide Anion Gap BUN Creatinine Estim Creat Clear Calc Estimated GFR POC Glucose 47 L* 148 H 130 H Random Glucose Fasting Glucose Estimat Average Glucose Hemoglobin A1c % Lactic Acid Lactic Acid Fup @ 2Hr Lactic Acid Fup @ 4Hr Calcium Magnesium Iron TIBC % Saturation Unsat Iron Binding Ferritin Total Bilirubin Direct Bilirubin AST ALT Alkaline Phosphatase Total Protein Albumin Lipase Alpha Fetoprotein Vitamin B12 Folate Urine Color Urine Appearance Urine pH Ur Specific [place] Urine Protein Urine Glucose (UA) Urine Ketones Urine Blood Urine Nitrite Ur Leukocyte Esterase Urine RBC Urine WBC Ur Squamous Epith Cells Urine Bacteria Urine Mucus Urine Yeast Peritoneal WBC Peritoneal RBC Periton Neutrophils Periton Lymphocytes Peritoneal Monocytes Peritoneal Eosinophils Peritoneal Other Cells Peritoneal Tot Protein Peritoneal LDH Peritoneal Glucose C. difficile Toxin A&B C. difficile Antigen C. difficile Interpret Coronavirus (PCR) COVID-19 ([facility]) COVID-19 Clin Com HIV 1&2 Ab/P24 Ag 4thGn Influenza Type A (PCR) Influenza Type B (PCR) RSV RNA Qual (PCR) Blood Type Antibody Screen Crossmatch 07/19/20 07/19/20 07/19/20 06:56 07:50 11:12 WBC RBC Hgb Hct MCV MCH MCHC RDW Plt Count MPV Immature Gran % (Auto) Neut % (Auto) Lymph % (Auto) [place] % (Auto) Eos % (Auto) Baso % (Auto) Lymph # (Auto) [place] # (Auto) Eos # (Auto) Baso # (Auto) Abs Immat Gran (auto) Absolute Neuts (auto) Absolute Nucleated RBC Nucleated RBC % (auto) Smear Tech's Comments PT INR APTT Sodium 139 Potassium 2.7 L Chloride 106 Carbon Dioxide 17 L Anion Gap 19 BUN 21 H Creatinine 5.16 H* Estim Creat Clear Calc 11.2 Estimated GFR 11 POC Glucose 138 H 168 H Random Glucose 148 H D Fasting Glucose Estimat Average Glucose Hemoglobin A1c % Lactic Acid Lactic Acid Fup @ 2Hr Lactic Acid Fup @ 4Hr Calcium 7.6 L D Magnesium Iron TIBC % Saturation Unsat Iron Binding Ferritin Total Bilirubin Direct Bilirubin AST ALT Alkaline Phosphatase Total Protein Albumin Lipase Alpha Fetoprotein Vitamin B12 Folate Urine Color Urine Appearance Urine pH Ur Specific [place] Urine Protein Urine Glucose (UA) Urine Ketones Urine Blood Urine Nitrite Ur Leukocyte Esterase Urine RBC Urine WBC Ur Squamous Epith Cells Urine Bacteria Urine Mucus Urine Yeast Peritoneal WBC Peritoneal RBC Periton Neutrophils Periton Lymphocytes Peritoneal Monocytes Peritoneal Eosinophils Peritoneal Other Cells Peritoneal Tot Protein Peritoneal LDH Peritoneal Glucose C. difficile Toxin A&B C. difficile Antigen C. difficile Interpret Coronavirus (PCR) COVID-19 ([facility]) COVID-19 Clin Com HIV 1&2 Ab/P24 Ag 4thGn Influenza Type A (PCR) Influenza Type B (PCR) RSV RNA Qual (PCR) Blood Type Antibody Screen Crossmatch 07/19/20 07/19/20 07/19/20 17:18 18:03 20:25 WBC RBC Hgb Hct MCV MCH MCHC RDW Plt Count MPV Immature Gran % (Auto) Neut % (Auto) Lymph % (Auto) [place] % (Auto) Eos % (Auto) Baso % (Auto) Lymph # (Auto) [place] # (Auto) Eos # (Auto) Baso # (Auto) Abs Immat Gran (auto) Absolute Neuts (auto) Absolute Nucleated RBC Nucleated RBC % (auto) Smear Tech's Comments PT INR APTT Sodium 138 Potassium 3.1 L Chloride 101 Carbon Dioxide 25 Anion Gap 15 BUN 6 L D Creatinine 1.54 H Estim Creat Clear Calc 37.6 Estimated GFR 45 POC Glucose 94 143 H Random Glucose 100 Fasting Glucose Estimat Average Glucose Hemoglobin A1c % Lactic Acid Lactic Acid Fup @ 2Hr Lactic Acid Fup @ 4Hr Calcium 9.1 D Magnesium Iron TIBC % Saturation Unsat Iron Binding Ferritin Total Bilirubin Direct Bilirubin AST ALT Alkaline Phosphatase Total Protein Albumin Lipase Alpha Fetoprotein Vitamin B12 Folate Urine Color Urine Appearance Urine pH Ur Specific [place] Urine Protein Urine Glucose (UA) Urine Ketones Urine Blood Urine Nitrite Ur Leukocyte Esterase Urine RBC Urine WBC Ur Squamous Epith Cells Urine Bacteria Urine Mucus Urine Yeast Peritoneal WBC Peritoneal RBC Periton Neutrophils Periton Lymphocytes Peritoneal Monocytes Peritoneal Eosinophils Peritoneal Other Cells Peritoneal Tot Protein Peritoneal LDH Peritoneal Glucose C. difficile Toxin A&B C. difficile Antigen C. difficile Interpret Coronavirus (PCR) COVID-19 ([facility]) COVID-19 Clin Com HIV 1&2 Ab/P24 Ag 4thGn Influenza Type A (PCR) Influenza Type B (PCR) RSV RNA Qual (PCR) Blood Type Antibody Screen Crossmatch 07/19/20 07/20/20 07/20/20 22:56 07:30 07:34 WBC RBC Hgb Hct MCV MCH MCHC RDW Plt Count MPV Immature Gran % (Auto) Neut % (Auto) Lymph % (Auto) [place] % (Auto) Eos % (Auto) Baso % (Auto) Lymph # (Auto) [place] # (Auto) Eos # (Auto) Baso # (Auto) Abs Immat Gran (auto) Absolute Neuts (auto) Absolute Nucleated RBC Nucleated RBC % (auto) Smear Tech's Comments PT INR APTT Sodium 137 Potassium 3.7 Chloride 102 Carbon Dioxide 20 L Anion Gap 19 BUN 9 Creatinine 3.12 H Estim Creat Clear Calc 18.5 Estimated GFR 20 POC Glucose 132 H Random Glucose 139 H D Fasting Glucose Estimat Average Glucose Hemoglobin A1c % Lactic Acid Lactic Acid Fup @ 2Hr Lactic Acid Fup @ 4Hr Calcium 8.4 D Magnesium Iron TIBC % Saturation Unsat Iron Binding Ferritin Total Bilirubin Direct Bilirubin AST ALT Alkaline Phosphatase Total Protein Albumin Lipase Alpha Fetoprotein Vitamin B12 Folate Urine Color Urine Appearance Urine pH Ur Specific [place] Urine Protein Urine Glucose (UA) Urine Ketones Urine Blood Urine Nitrite Ur Leukocyte Esterase Urine RBC Urine WBC Ur Squamous Epith Cells Urine Bacteria Urine Mucus Urine Yeast Peritoneal WBC Peritoneal RBC Periton Neutrophils Periton Lymphocytes Peritoneal Monocytes Peritoneal Eosinophils Peritoneal Other Cells Peritoneal Tot Protein Peritoneal LDH Peritoneal Glucose C. difficile Toxin A&B C. difficile Antigen C. difficile Interpret Coronavirus (PCR) COVID-19 ([facility]) COVID-19 Clin Com HIV 1&2 Ab/P24 Ag 4thGn Nonreactive Influenza Type A (PCR) Influenza Type B (PCR) RSV RNA Qual (PCR) Blood Type Antibody Screen Crossmatch 07/20/20 07/20/20 07/20/20 11:33 16:34 17:06 WBC RBC Hgb Hct MCV MCH MCHC RDW Plt Count MPV Immature Gran % (Auto) Neut % (Auto) Lymph % (Auto) [place] % (Auto) Eos % (Auto) Baso % (Auto) Lymph # (Auto) [place] # (Auto) Eos # (Auto) Baso # (Auto) Abs Immat Gran (auto) Absolute Neuts (auto) Absolute Nucleated RBC Nucleated RBC % (auto) Smear Tech's Comments PT INR APTT Sodium Potassium Chloride Carbon Dioxide Anion Gap BUN Creatinine Estim Creat Clear Calc Estimated GFR POC Glucose 167 H 60 66 Random Glucose Fasting Glucose Estimat Average Glucose Hemoglobin A1c % Lactic Acid Lactic Acid Fup @ 2Hr Lactic Acid Fup @ 4Hr Calcium Magnesium Iron TIBC % Saturation Unsat Iron Binding Ferritin Total Bilirubin Direct Bilirubin AST ALT Alkaline Phosphatase Total Protein Albumin Lipase Alpha Fetoprotein Vitamin B12 Folate Urine Color Urine Appearance Urine pH Ur Specific [place] Urine Protein Urine Glucose (UA) Urine Ketones Urine Blood Urine Nitrite Ur Leukocyte Esterase Urine RBC Urine WBC Ur Squamous Epith Cells Urine Bacteria Urine Mucus Urine Yeast Peritoneal WBC Peritoneal RBC Periton Neutrophils Periton Lymphocytes Peritoneal Monocytes Peritoneal Eosinophils Peritoneal Other Cells Peritoneal Tot Protein Peritoneal LDH Peritoneal Glucose C. difficile Toxin A&B C. difficile Antigen C. difficile Interpret Coronavirus (PCR) COVID-19 ([facility]) COVID-19 Clin Com HIV 1&2 Ab/P24 Ag 4thGn Influenza Type A (PCR) Influenza Type B (PCR) RSV RNA Qual (PCR) Blood Type Antibody Screen Crossmatch 07/20/20 07/20/20 07/20/20 18:00 20:36 20:50 WBC 10.0 RBC 2.67 L Hgb 7.7 L Hct 23.9 L MCV 89.5 MCH 28.8 MCHC 32.2 RDW 21.8 H Plt Count 117 L D MPV 9.0 L Immature Gran % (Auto) 0.4 Neut % (Auto) 77.8 H Lymph % (Auto) 11.0 L [place] % (Auto) 7.7 Eos % (Auto) 2.6 Baso % (Auto) 0.5 Lymph # (Auto) 1.1 L [place] # (Auto) 0.8 Eos # (Auto) 0.3 Baso # (Auto) 0.1 Abs Immat Gran (auto) 0.04 H Absolute Neuts (auto) 7.7 Absolute Nucleated RBC 0.000 Nucleated RBC % (auto) 0.0 Smear Tech's Comments PT INR APTT Sodium Potassium Chloride Carbon Dioxide Anion Gap BUN Creatinine Estim Creat Clear Calc Estimated GFR POC Glucose 88 78 Random Glucose Fasting Glucose Estimat Average Glucose Hemoglobin A1c % Lactic Acid Lactic Acid Fup @ 2Hr Lactic Acid Fup @ 4Hr Calcium Magnesium Iron TIBC % Saturation Unsat Iron Binding Ferritin Total Bilirubin Direct Bilirubin AST ALT Alkaline Phosphatase Total Protein Albumin Lipase Alpha Fetoprotein Vitamin B12 Folate Urine Color Urine Appearance Urine pH Ur Specific [place] Urine Protein Urine Glucose (UA) Urine Ketones Urine Blood Urine Nitrite Ur Leukocyte Esterase Urine RBC Urine WBC Ur Squamous Epith Cells Urine Bacteria Urine Mucus Urine Yeast Peritoneal WBC Peritoneal RBC Periton Neutrophils Periton Lymphocytes Peritoneal Monocytes Peritoneal Eosinophils Peritoneal Other Cells Peritoneal Tot Protein Peritoneal LDH Peritoneal Glucose C. difficile Toxin A&B C. difficile Antigen C. difficile Interpret Coronavirus (PCR) COVID-19 ([facility]) COVID-19 Clin Com HIV 1&2 Ab/P24 Ag 4thGn Influenza Type A (PCR) Influenza Type B (PCR) RSV RNA Qual (PCR) Blood Type Antibody Screen Crossmatch 07/20/20 07/20/20 07/21/20 20:50 23:23 01:51 WBC RBC Hgb Hct MCV MCH MCHC RDW Plt Count MPV Immature Gran % (Auto) Neut % (Auto) Lymph % (Auto) [place] % (Auto) Eos % (Auto) Baso % (Auto) Lymph # (Auto) [place] # (Auto) Eos # (Auto) Baso # (Auto) Abs Immat Gran (auto) Absolute Neuts (auto) Absolute Nucleated RBC Nucleated RBC % (auto) Smear Tech's Comments PT INR APTT Sodium Potassium Chloride Carbon Dioxide Anion Gap BUN Creatinine Estim Creat Clear Calc Estimated GFR POC Glucose Random Glucose Fasting Glucose Estimat Average Glucose Hemoglobin A1c % Lactic Acid 3.9 H* Lactic Acid Fup @ 2Hr 2.7 H* Lactic Acid Fup @ 4Hr 2.1 H* Calcium Magnesium Iron TIBC % Saturation Unsat Iron Binding Ferritin Total Bilirubin Direct Bilirubin AST ALT Alkaline Phosphatase Total Protein Albumin Lipase Alpha Fetoprotein Vitamin B12 Folate Urine Color Urine Appearance Urine pH Ur Specific [place] Urine Protein Urine Glucose (UA) Urine Ketones Urine Blood Urine Nitrite Ur Leukocyte Esterase Urine RBC Urine WBC Ur Squamous Epith Cells Urine Bacteria Urine Mucus Urine Yeast Peritoneal WBC Peritoneal RBC Periton Neutrophils Periton Lymphocytes Peritoneal Monocytes Peritoneal Eosinophils Peritoneal Other Cells Peritoneal Tot Protein Peritoneal LDH Peritoneal Glucose C. difficile Toxin A&B C. difficile Antigen C. difficile Interpret Coronavirus (PCR) COVID-19 ([facility]) COVID-19 Clin Com HIV 1&2 Ab/P24 Ag 4thGn Influenza Type A (PCR) Influenza Type B (PCR) RSV RNA Qual (PCR) Blood Type Antibody Screen Crossmatch 07/21/20 07/21/20 07/21/20 06:14 06:14 06:14 WBC 9.9 RBC 2.96 L Hgb 8.8 L Hct 26.0 L MCV 87.8 MCH 29.7 MCHC 33.8 RDW 21.7 H Plt Count 121 L MPV 11.1 Immature Gran % (Auto) 0.5 H Neut % (Auto) 84.1 H Lymph % (Auto) 6.9 L [place] % (Auto) 4.8 Eos % (Auto) 2.9 Baso % (Auto) 0.8 Lymph # (Auto) 0.7 L [place] # (Auto) 0.5 Eos # (Auto) 0.3 Baso # (Auto) 0.1 Abs Immat Gran (auto) 0.05 H Absolute Neuts (auto) 8.3 Absolute Nucleated RBC 0.000 Nucleated RBC % (auto) 0.0 Smear Tech's Comments VERIFIED PT 14.6 H INR 1.2 H APTT Sodium 136 Potassium 3.1 L Chloride 103 Carbon Dioxide 18 L Anion Gap 18 BUN 12 Creatinine 4.14 H* Estim Creat Clear Calc 14.0 Estimated GFR 14 POC Glucose Random Glucose 105 Fasting Glucose Estimat Average Glucose Hemoglobin A1c % Lactic Acid Lactic Acid Fup @ 2Hr Lactic Acid Fup @ 4Hr Calcium 8.4 Magnesium 1.9 Iron TIBC % Saturation Unsat Iron Binding Ferritin Total Bilirubin 1.5 H Direct Bilirubin AST 87 H ALT 16 Alkaline Phosphatase 595 H Total Protein 6.6 Albumin 3.1 L Lipase Alpha Fetoprotein Vitamin B12 Folate Urine Color Urine Appearance Urine pH Ur Specific [place] Urine Protein Urine Glucose (UA) Urine Ketones Urine Blood Urine Nitrite Ur Leukocyte Esterase Urine RBC Urine WBC Ur Squamous Epith Cells Urine Bacteria Urine Mucus Urine Yeast Peritoneal WBC Peritoneal RBC Periton Neutrophils Periton Lymphocytes Peritoneal Monocytes Peritoneal Eosinophils Peritoneal Other Cells Peritoneal Tot Protein Peritoneal LDH Peritoneal Glucose C. difficile Toxin A&B C. difficile Antigen C. difficile Interpret Coronavirus (PCR) COVID-19 ([facility]) COVID-19 Clin Com HIV 1&2 Ab/P24 Ag 4thGn Influenza Type A (PCR) Influenza Type B (PCR) RSV RNA Qual (PCR) Blood Type Antibody Screen Crossmatch 07/21/20 07/21/20 07/21/20 07:23 11:11 16:26 WBC RBC Hgb Hct MCV MCH MCHC RDW Plt Count MPV Immature Gran % (Auto) Neut % (Auto) Lymph % (Auto) [place] % (Auto) Eos % (Auto) Baso % (Auto) Lymph # (Auto) [place] # (Auto) Eos # (Auto) Baso # (Auto) Abs Immat Gran (auto) Absolute Neuts (auto) Absolute Nucleated RBC Nucleated RBC % (auto) Smear Tech's Comments PT INR APTT Sodium Potassium Chloride Carbon Dioxide Anion Gap BUN Creatinine Estim Creat Clear Calc Estimated GFR POC Glucose 113 94 117 H Random Glucose Fasting Glucose Estimat Average Glucose Hemoglobin A1c % Lactic Acid Lactic Acid Fup @ 2Hr Lactic Acid Fup @ 4Hr Calcium Magnesium Iron TIBC % Saturation Unsat Iron Binding Ferritin Total Bilirubin Direct Bilirubin AST ALT Alkaline Phosphatase Total Protein Albumin Lipase Alpha Fetoprotein Vitamin B12 Folate Urine Color Urine Appearance Urine pH Ur Specific [place] Urine Protein Urine Glucose (UA) Urine Ketones Urine Blood Urine Nitrite Ur Leukocyte Esterase Urine RBC Urine WBC Ur Squamous Epith Cells Urine Bacteria Urine Mucus Urine Yeast Peritoneal WBC Peritoneal RBC Periton Neutrophils Periton Lymphocytes Peritoneal Monocytes Peritoneal Eosinophils Peritoneal Other Cells Peritoneal Tot Protein Peritoneal LDH Peritoneal Glucose C. difficile Toxin A&B C. difficile Antigen C. difficile Interpret Coronavirus (PCR) COVID-19 ([facility]) COVID-19 Clin Com HIV 1&2 Ab/P24 Ag 4thGn Influenza Type A (PCR) Influenza Type B (PCR) RSV RNA Qual (PCR) Blood Type Antibody Screen Crossmatch 07/21/20 07/22/20 07/22/20 20:07 07:33 11:48 WBC RBC Hgb Hct MCV MCH MCHC RDW Plt Count MPV Immature Gran % (Auto) Neut % (Auto) Lymph % (Auto) [place] % (Auto) Eos % (Auto) Baso % (Auto) Lymph # (Auto) [place] # (Auto) Eos # (Auto) Baso # (Auto) Abs Immat Gran (auto) Absolute Neuts (auto) Absolute Nucleated RBC Nucleated RBC % (auto) Smear Tech's Comments PT INR APTT Sodium Potassium Chloride Carbon Dioxide Anion Gap BUN Creatinine Estim Creat Clear Calc Estimated GFR POC Glucose 87 85 79 Random Glucose Fasting Glucose Estimat Average Glucose Hemoglobin A1c % Lactic Acid Lactic Acid Fup @ 2Hr Lactic Acid Fup @ 4Hr Calcium Magnesium Iron TIBC % Saturation Unsat Iron Binding Ferritin Total Bilirubin Direct Bilirubin AST ALT Alkaline Phosphatase Total Protein Albumin Lipase Alpha Fetoprotein Vitamin B12 Folate Urine Color Urine Appearance Urine pH Ur Specific [place] Urine Protein Urine Glucose (UA) Urine Ketones Urine Blood Urine Nitrite Ur Leukocyte Esterase Urine RBC Urine WBC Ur Squamous Epith Cells Urine Bacteria Urine Mucus Urine Yeast Peritoneal WBC Peritoneal RBC Periton Neutrophils Periton Lymphocytes Peritoneal Monocytes Peritoneal Eosinophils Peritoneal Other Cells Peritoneal Tot Protein Peritoneal LDH Peritoneal Glucose C. difficile Toxin A&B C. difficile Antigen C. difficile Interpret Coronavirus (PCR) COVID-19 ([facility]) COVID-19 Clin Com HIV 1&2 Ab/P24 Ag 4thGn Influenza Type A (PCR) Influenza Type B (PCR) RSV RNA Qual (PCR) Blood Type Antibody Screen Crossmatch 07/22/20 07/22/20 07/22/20 16:15 16:31 20:30 WBC RBC Hgb Hct MCV MCH MCHC RDW Plt Count MPV Immature Gran % (Auto) Neut % (Auto) Lymph % (Auto) [place] % (Auto) Eos % (Auto) Baso % (Auto) Lymph # (Auto) [place] # (Auto) Eos # (Auto) Baso # (Auto) Abs Immat Gran (auto) Absolute Neuts (auto) Absolute Nucleated RBC Nucleated RBC % (auto) Smear Tech's Comments PT INR APTT Sodium Potassium 3.4 Chloride Carbon Dioxide Anion Gap BUN Creatinine Estim Creat Clear Calc Estimated GFR POC Glucose 74 72 Random Glucose Fasting Glucose Estimat Average Glucose Hemoglobin A1c % Lactic Acid Lactic Acid Fup @ 2Hr Lactic Acid Fup @ 4Hr Calcium Magnesium Iron TIBC % Saturation Unsat Iron Binding Ferritin Total Bilirubin Direct Bilirubin AST ALT Alkaline Phosphatase Total Protein Albumin Lipase Alpha Fetoprotein Vitamin B12 Folate Urine Color Urine Appearance Urine pH Ur Specific [place] Urine Protein Urine Glucose (UA) Urine Ketones Urine Blood Urine Nitrite Ur Leukocyte Esterase Urine RBC Urine WBC Ur Squamous Epith Cells Urine Bacteria Urine Mucus Urine Yeast Peritoneal WBC Peritoneal RBC Periton Neutrophils Periton Lymphocytes Peritoneal Monocytes Peritoneal Eosinophils Peritoneal Other Cells Peritoneal Tot Protein Peritoneal LDH Peritoneal Glucose C. difficile Toxin A&B C. difficile Antigen C. difficile Interpret Coronavirus (PCR) COVID-19 ([facility]) COVID-19 Clin Com HIV 1&2 Ab/P24 Ag 4thGn Influenza Type A (PCR) Influenza Type B (PCR) RSV RNA Qual (PCR) Blood Type Antibody Screen Crossmatch 07/23/20 07/23/20 07/23/20 06:03 06:03 06:03 WBC RBC Hgb 7.7 L Hct 23.3 L MCV MCH MCHC RDW Plt Count MPV Immature Gran % (Auto) Neut % (Auto) Lymph % (Auto) [place] % (Auto) Eos % (Auto) Baso % (Auto) Lymph # (Auto) [place] # (Auto) Eos # (Auto) Baso # (Auto) Abs Immat Gran (auto) Absolute Neuts (auto) Absolute Nucleated RBC Nucleated RBC % (auto) Smear Tech's Comments PT INR APTT Sodium 135 Potassium 3.2 L Chloride 104 Carbon Dioxide 15 L Anion Gap 19 BUN 9 Creatinine 3.28 H Estim Creat Clear Calc 17.6 Estimated GFR 19 POC Glucose Random Glucose 57 L* Fasting Glucose Estimat Average Glucose Hemoglobin A1c % Lactic Acid Lactic Acid Fup @ 2Hr Lactic Acid Fup @ 4Hr Calcium 8.0 L Magnesium Iron 36 L TIBC 179 L % Saturation 20 Unsat Iron Binding 143 Ferritin 293 H Total Bilirubin Direct Bilirubin AST ALT Alkaline Phosphatase Total Protein Albumin Lipase Alpha Fetoprotein Vitamin B12 1414 H Folate 4.1 Urine Color Urine Appearance Urine pH Ur Specific [place] Urine Protein Urine Glucose (UA) Urine Ketones Urine Blood Urine Nitrite Ur Leukocyte Esterase Urine RBC Urine WBC Ur Squamous Epith Cells Urine Bacteria Urine Mucus Urine Yeast Peritoneal WBC Peritoneal RBC Periton Neutrophils Periton Lymphocytes Peritoneal Monocytes Peritoneal Eosinophils Peritoneal Other Cells Peritoneal Tot Protein Peritoneal LDH Peritoneal Glucose C. difficile Toxin A&B C. difficile Antigen C. difficile Interpret Coronavirus (PCR) COVID-19 ([facility]) COVID-19 Clin Com HIV 1&2 Ab/P24 Ag 4thGn Influenza Type A (PCR) Influenza Type B (PCR) RSV RNA Qual (PCR) Blood Type Antibody Screen Crossmatch 07/23/20 07/23/20 07/23/20 06:03 07:14 07:59 WBC RBC Hgb Hct MCV MCH MCHC RDW Plt Count MPV Immature Gran % (Auto) Neut % (Auto) Lymph % (Auto) [place] % (Auto) Eos % (Auto) Baso % (Auto) Lymph # (Auto) [place] # (Auto) Eos # (Auto) Baso # (Auto) Abs Immat Gran (auto) Absolute Neuts (auto) Absolute Nucleated RBC Nucleated RBC % (auto) Smear Tech's Comments PT INR APTT Sodium Potassium Chloride Carbon Dioxide Anion Gap BUN Creatinine Estim Creat Clear Calc Estimated GFR POC Glucose 54 L* 72 Random Glucose Fasting Glucose Estimat Average Glucose 108 Hemoglobin A1c % 5.4 Lactic Acid Lactic Acid Fup @ 2Hr Lactic Acid Fup @ 4Hr Calcium Magnesium Iron TIBC % Saturation Unsat Iron Binding Ferritin Total Bilirubin Direct Bilirubin AST ALT Alkaline Phosphatase Total Protein Albumin Lipase Alpha Fetoprotein Vitamin B12 Folate Urine Color Urine Appearance Urine pH Ur Specific [place] Urine Protein Urine Glucose (UA) Urine Ketones Urine Blood Urine Nitrite Ur Leukocyte Esterase Urine RBC Urine WBC Ur Squamous Epith Cells Urine Bacteria Urine Mucus Urine Yeast Peritoneal WBC Peritoneal RBC Periton Neutrophils Periton Lymphocytes Peritoneal Monocytes Peritoneal Eosinophils Peritoneal Other Cells Peritoneal Tot Protein Peritoneal LDH Peritoneal Glucose C. difficile Toxin A&B C. difficile Antigen C. difficile Interpret Coronavirus (PCR) COVID-19 ([facility]) COVID-19 Clin Com HIV 1&2 Ab/P24 Ag 4thGn Influenza Type A (PCR) Influenza Type B (PCR) RSV RNA Qual (PCR) Blood Type Antibody Screen Crossmatch 07/23/20 07/23/20 07/23/20 11:05 15:17 15:30 WBC RBC Hgb Hct MCV MCH MCHC RDW Plt Count MPV Immature Gran % (Auto) Neut % (Auto) Lymph % (Auto) [place] % (Auto) Eos % (Auto) Baso % (Auto) Lymph # (Auto) [place] # (Auto) Eos # (Auto) Baso # (Auto) Abs Immat Gran (auto) Absolute Neuts (auto) Absolute Nucleated RBC Nucleated RBC % (auto) Smear Tech's Comments PT INR APTT Sodium Potassium Chloride Carbon Dioxide Anion Gap BUN Creatinine Estim Creat Clear Calc Estimated GFR POC Glucose 102 Random Glucose Fasting Glucose Estimat Average Glucose Hemoglobin A1c % Lactic Acid Lactic Acid Fup @ 2Hr Lactic Acid Fup @ 4Hr Calcium Magnesium Iron TIBC % Saturation Unsat Iron Binding Ferritin Total Bilirubin Direct Bilirubin AST ALT Alkaline Phosphatase Total Protein Albumin Lipase Alpha Fetoprotein Vitamin B12 Folate Urine Color Urine Appearance Urine pH Ur Specific [place] Urine Protein Urine Glucose (UA) Urine Ketones Urine Blood Urine Nitrite Ur Leukocyte Esterase Urine RBC Urine WBC Ur Squamous Epith Cells Urine Bacteria Urine Mucus Urine Yeast Peritoneal WBC 0.114 Peritoneal RBC 0.010 Periton Neutrophils 56 Periton Lymphocytes 28 Peritoneal Monocytes 15 Peritoneal Eosinophils 1 Peritoneal Other Cells Peritoneal Tot Protein 1.4 Peritoneal LDH 63 Peritoneal Glucose 100 C. difficile Toxin A&B C. difficile Antigen C. difficile Interpret Coronavirus (PCR) COVID-19 ([facility]) COVID-19 Clin Com HIV 1&2 Ab/P24 Ag 4thGn Influenza Type A (PCR) Influenza Type B (PCR) RSV RNA Qual (PCR) Blood Type Antibody Screen Crossmatch 07/23/20 07/23/20 07/23/20 16:14 20:18 23:00 WBC RBC Hgb Hct MCV MCH MCHC RDW Plt Count MPV Immature Gran % (Auto) Neut % (Auto) Lymph % (Auto) [place] % (Auto) Eos % (Auto) Baso % (Auto) Lymph # (Auto) [place] # (Auto) Eos # (Auto) Baso # (Auto) Abs Immat Gran (auto) Absolute Neuts (auto) Absolute Nucleated RBC Nucleated RBC % (auto) Smear Tech's Comments PT INR APTT Sodium Potassium Chloride Carbon Dioxide Anion Gap BUN Creatinine Estim Creat Clear Calc Estimated GFR POC Glucose 71 66 Random Glucose Fasting Glucose Estimat Average Glucose Hemoglobin A1c % Lactic Acid Lactic Acid Fup @ 2Hr Lactic Acid Fup @ 4Hr Calcium Magnesium Iron TIBC % Saturation Unsat Iron Binding Ferritin Total Bilirubin Direct Bilirubin AST ALT Alkaline Phosphatase Total Protein Albumin Lipase Alpha Fetoprotein Vitamin B12 Folate Urine Color Urine Appearance Urine pH Ur Specific [place] Urine Protein Urine Glucose (UA) Urine Ketones Urine Blood Urine Nitrite Ur Leukocyte Esterase Urine RBC Urine WBC Ur Squamous Epith Cells Urine Bacteria Urine Mucus Urine Yeast Peritoneal WBC Peritoneal RBC Periton Neutrophils Periton Lymphocytes Peritoneal Monocytes Peritoneal Eosinophils Peritoneal Other Cells Peritoneal Tot Protein Peritoneal LDH Peritoneal Glucose C. difficile Toxin A&B Negative C. difficile Antigen Negative C. difficile Interpret SEE NOTE Coronavirus (PCR) COVID-19 ([facility]) COVID-19 Clin Com HIV 1&2 Ab/P24 Ag 4thGn Influenza Type A (PCR) Influenza Type B (PCR) RSV RNA Qual (PCR) Blood Type Antibody Screen Crossmatch 07/24/20 07/24/20 07/24/20 05:53 05:53 07:33 WBC 9.4 RBC 2.55 L Hgb 7.5 L Hct 22.4 L MCV 87.8 MCH 29.4 MCHC 33.5 RDW 22.1 H Plt Count 101 L MPV 10.5 Immature Gran % (Auto) Neut % (Auto) Lymph % (Auto) [place] % (Auto) Eos % (Auto) Baso % (Auto) Lymph # (Auto) [place] # (Auto) Eos # (Auto) Baso # (Auto) Abs Immat Gran (auto) Absolute Neuts (auto) Absolute Nucleated RBC 0.000 Nucleated RBC % (auto) 0.0 Smear Tech's Comments PT INR APTT Sodium 139 Potassium 2.9 L Chloride 108 Carbon Dioxide 15 L Anion Gap 19 BUN 14 D Creatinine 4.36 H* Estim Creat Clear Calc 13.3 Estimated GFR 14 POC Glucose 66 Random Glucose 63 Fasting Glucose Estimat Average Glucose Hemoglobin A1c % Lactic Acid Lactic Acid Fup @ 2Hr Lactic Acid Fup @ 4Hr Calcium 8.8 D Magnesium Iron TIBC % Saturation Unsat Iron Binding Ferritin Total Bilirubin Direct Bilirubin AST ALT Alkaline Phosphatase Total Protein Albumin Lipase Alpha Fetoprotein Vitamin B12 Folate Urine Color Urine Appearance Urine pH Ur Specific [place] Urine Protein Urine Glucose (UA) Urine Ketones Urine Blood Urine Nitrite Ur Leukocyte Esterase Urine RBC Urine WBC Ur Squamous Epith Cells Urine Bacteria Urine Mucus Urine Yeast Peritoneal WBC Peritoneal RBC Periton Neutrophils Periton Lymphocytes Peritoneal Monocytes Peritoneal Eosinophils Peritoneal Other Cells Peritoneal Tot Protein Peritoneal LDH Peritoneal Glucose C. difficile Toxin A&B C. difficile Antigen C. difficile Interpret Coronavirus (PCR) COVID-19 ([facility]) COVID-19 Clin Com HIV 1&2 Ab/P24 Ag 4thGn Influenza Type A (PCR) Influenza Type B (PCR) RSV RNA Qual (PCR) Blood Type Antibody Screen Crossmatch 07/24/20 07/24/20 07/24/20 07:50 09:31 12:14 WBC RBC Hgb Hct MCV MCH MCHC RDW Plt Count MPV Immature Gran % (Auto) Neut % (Auto) Lymph % (Auto) [place] % (Auto) Eos % (Auto) Baso % (Auto) Lymph # (Auto) [place] # (Auto) Eos # (Auto) Baso # (Auto) Abs Immat Gran (auto) Absolute Neuts (auto) Absolute Nucleated RBC Nucleated RBC % (auto) Smear Tech's Comments PT INR APTT Sodium Potassium Chloride Carbon Dioxide Anion Gap BUN Creatinine Estim Creat Clear Calc Estimated GFR POC Glucose 65 80 74 Random Glucose Fasting Glucose Estimat Average Glucose Hemoglobin A1c % Lactic Acid Lactic Acid Fup @ 2Hr Lactic Acid Fup @ 4Hr Calcium Magnesium Iron TIBC % Saturation Unsat Iron Binding Ferritin Total Bilirubin Direct Bilirubin AST ALT Alkaline Phosphatase Total Protein Albumin Lipase Alpha Fetoprotein Vitamin B12 Folate Urine Color Urine Appearance Urine pH Ur Specific [place] Urine Protein Urine Glucose (UA) Urine Ketones Urine Blood Urine Nitrite Ur Leukocyte Esterase Urine RBC Urine WBC Ur Squamous Epith Cells Urine Bacteria Urine Mucus Urine Yeast Peritoneal WBC Peritoneal RBC Periton Neutrophils Periton Lymphocytes Peritoneal Monocytes Peritoneal Eosinophils Peritoneal Other Cells Peritoneal Tot Protein Peritoneal LDH Peritoneal Glucose C. difficile Toxin A&B C. difficile Antigen C. difficile Interpret Coronavirus (PCR) COVID-19 ([facility]) COVID-19 Clin Com HIV 1&2 Ab/P24 Ag 4thGn Influenza Type A (PCR) Influenza Type B (PCR) RSV RNA Qual (PCR) Blood Type Antibody Screen Crossmatch 07/24/20 07/24/20 07/24/20 16:13 17:59 20:12 WBC RBC Hgb Hct MCV MCH MCHC RDW Plt Count MPV Immature Gran % (Auto) Neut % (Auto) Lymph % (Auto) [place] % (Auto) Eos % (Auto) Baso % (Auto) Lymph # (Auto) [place] # (Auto) Eos # (Auto) Baso # (Auto) Abs Immat Gran (auto) Absolute Neuts (auto) Absolute Nucleated RBC Nucleated RBC % (auto) Smear Tech's Comments PT INR APTT Sodium Potassium Chloride Carbon Dioxide Anion Gap BUN Creatinine Estim Creat Clear Calc Estimated GFR POC Glucose 55 L* 151 H 112 Random Glucose Fasting Glucose Estimat Average Glucose Hemoglobin A1c % Lactic Acid Lactic Acid Fup @ 2Hr Lactic Acid Fup @ 4Hr Calcium Magnesium Iron TIBC % Saturation Unsat Iron Binding Ferritin Total Bilirubin Direct Bilirubin AST ALT Alkaline Phosphatase Total Protein Albumin Lipase Alpha Fetoprotein Vitamin B12 Folate Urine Color Urine Appearance Urine pH Ur Specific [place] Urine Protein Urine Glucose (UA) Urine Ketones Urine Blood Urine Nitrite Ur Leukocyte Esterase Urine RBC Urine WBC Ur Squamous Epith Cells Urine Bacteria Urine Mucus Urine Yeast Peritoneal WBC Peritoneal RBC Periton Neutrophils Periton Lymphocytes Peritoneal Monocytes Peritoneal Eosinophils Peritoneal Other Cells Peritoneal Tot Protein Peritoneal LDH Peritoneal Glucose C. difficile Toxin A&B C. difficile Antigen C. difficile Interpret Coronavirus (PCR) COVID-19 ([facility]) COVID-19 Clin Com HIV 1&2 Ab/P24 Ag 4thGn Influenza Type A (PCR) Influenza Type B (PCR) RSV RNA Qual (PCR) Blood Type Antibody Screen Crossmatch 07/25/20 07/25/20 07/25/20 06:22 06:22 07:09 WBC 10.6 RBC 2.34 L Hgb 6.9 L* Hct 20.4 L* MCV 87.2 MCH 29.5 MCHC 33.8 RDW 22.1 H Plt Count 94 L MPV 10.2 Immature Gran % (Auto) 0.4 Neut % (Auto) 78.3 H Lymph % (Auto) 10.9 L [place] % (Auto) 7.7 Eos % (Auto) 2.1 Baso % (Auto) 0.6 Lymph # (Auto) 1.2 [place] # (Auto) 0.8 Eos # (Auto) 0.2 Baso # (Auto) 0.1 Abs Immat Gran (auto) 0.04 H Absolute Neuts (auto) 8.3 Absolute Nucleated RBC 0.000 Nucleated RBC % (auto) 0.0 Smear Tech's Comments VERIFIED PT INR APTT Sodium 138 Potassium 2.7 L Chloride 105 Carbon Dioxide 21 L Anion Gap 15 BUN 7 L Creatinine 2.92 H Estim Creat Clear Calc 19.8 Estimated GFR 22 POC Glucose 109 Random Glucose Fasting Glucose 112 H Estimat Average Glucose Hemoglobin A1c % Lactic Acid Lactic Acid Fup @ 2Hr Lactic Acid Fup @ 4Hr Calcium 8.4 Magnesium Iron TIBC % Saturation Unsat Iron Binding Ferritin Total Bilirubin Direct Bilirubin AST ALT Alkaline Phosphatase Total Protein Albumin Lipase Alpha Fetoprotein Vitamin B12 Folate Urine Color Urine Appearance Urine pH Ur Specific [place] Urine Protein Urine Glucose (UA) Urine Ketones Urine Blood Urine Nitrite Ur Leukocyte Esterase Urine RBC Urine WBC Ur Squamous Epith Cells Urine Bacteria Urine Mucus Urine Yeast Peritoneal WBC Peritoneal RBC Periton Neutrophils Periton Lymphocytes Peritoneal Monocytes Peritoneal Eosinophils Peritoneal Other Cells Peritoneal Tot Protein Peritoneal LDH Peritoneal Glucose C. difficile Toxin A&B C. difficile Antigen C. difficile Interpret Coronavirus (PCR) COVID-19 ([facility]) COVID-19 Clin Com HIV 1&2 Ab/P24 Ag 4thGn Influenza Type A (PCR) Influenza Type B (PCR) RSV RNA Qual (PCR) Blood Type Antibody Screen Crossmatch 07/25/20 07/25/20 07/25/20 08:38 11:28 16:21 WBC RBC Hgb Hct MCV MCH MCHC RDW Plt Count MPV Immature Gran % (Auto) Neut % (Auto) Lymph % (Auto) [place] % (Auto) Eos % (Auto) Baso % (Auto) Lymph # (Auto) [place] # (Auto) Eos # (Auto) Baso # (Auto) Abs Immat Gran (auto) Absolute Neuts (auto) Absolute Nucleated RBC Nucleated RBC % (auto) Smear Tech's Comments PT INR APTT Sodium Potassium Chloride Carbon Dioxide Anion Gap BUN Creatinine Estim Creat Clear Calc Estimated GFR POC Glucose 114 117 H Random Glucose Fasting Glucose Estimat Average Glucose Hemoglobin A1c % Lactic Acid Lactic Acid Fup @ 2Hr Lactic Acid Fup @ 4Hr Calcium Magnesium Iron TIBC % Saturation Unsat Iron Binding Ferritin Total Bilirubin Direct Bilirubin AST ALT Alkaline Phosphatase Total Protein Albumin Lipase Alpha Fetoprotein Vitamin B12 Folate Urine Color Urine Appearance Urine pH Ur Specific [place] Urine Protein Urine Glucose (UA) Urine Ketones Urine Blood Urine Nitrite Ur Leukocyte Esterase Urine RBC Urine WBC Ur Squamous Epith Cells Urine Bacteria Urine Mucus Urine Yeast Peritoneal WBC Peritoneal RBC Periton Neutrophils Periton Lymphocytes Peritoneal Monocytes Peritoneal Eosinophils Peritoneal Other Cells Peritoneal Tot Protein Peritoneal LDH Peritoneal Glucose C. difficile Toxin A&B C. difficile Antigen C. difficile Interpret Coronavirus (PCR) COVID-19 ([facility]) COVID-19 Clin Com HIV 1&2 Ab/P24 Ag 4thGn Influenza Type A (PCR) Influenza Type B (PCR) RSV RNA Qual (PCR) Blood Type O Positive Antibody Screen NEGATIVE Crossmatch See Detail 07/25/20 07/26/20 07/26/20 20:45 06:28 06:28 WBC 10.3 RBC 2.64 L Hgb 7.9 L Hct 23.0 L MCV 87.1 MCH 29.9 MCHC 34.3 RDW 21.3 H Plt Count 111 L MPV 10.5 Immature Gran % (Auto) 0.5 H Neut % (Auto) 78.2 H Lymph % (Auto) 10.6 L [place] % (Auto) 7.9 Eos % (Auto) 2.0 Baso % (Auto) 0.8 Lymph # (Auto) 1.1 L [place] # (Auto) 0.8 Eos # (Auto) 0.2 Baso # (Auto) 0.1 Abs Immat Gran (auto) 0.05 H Absolute Neuts (auto) 8.1 Absolute Nucleated RBC 0.020 H Nucleated RBC % (auto) 0.2 Smear Tech's Comments VERIFIED PT INR APTT Sodium 136 Potassium 3.9 D Chloride 106 Carbon Dioxide 20 L Anion Gap 14 BUN 14 D Creatinine 3.88 H Estim Creat Clear Calc 14.9 Estimated GFR 16 POC Glucose 139 H Random Glucose Fasting Glucose 138 H Estimat Average Glucose Hemoglobin A1c % Lactic Acid Lactic Acid Fup @ 2Hr Lactic Acid Fup @ 4Hr Calcium 8.8 Magnesium Iron TIBC % Saturation Unsat Iron Binding Ferritin Total Bilirubin Direct Bilirubin AST ALT Alkaline Phosphatase Total Protein Albumin Lipase Alpha Fetoprotein Vitamin B12 Folate Urine Color Urine Appearance Urine pH Ur Specific [place] Urine Protein Urine Glucose (UA) Urine Ketones Urine Blood Urine Nitrite Ur Leukocyte Esterase Urine RBC Urine WBC Ur Squamous Epith Cells Urine Bacteria Urine Mucus Urine Yeast Peritoneal WBC Peritoneal RBC Periton Neutrophils Periton Lymphocytes Peritoneal Monocytes Peritoneal Eosinophils Peritoneal Other Cells Peritoneal Tot Protein Peritoneal LDH Peritoneal Glucose C. difficile Toxin A&B C. difficile Antigen C. difficile Interpret Coronavirus (PCR) COVID-19 ([facility]) COVID-19 Clin Com HIV 1&2 Ab/P24 Ag 4thGn Influenza Type A (PCR) Influenza Type B (PCR) RSV RNA Qual (PCR) Blood Type Antibody Screen Crossmatch 07/26/20 07/27/20 07/27/20 07:58 06:12 06:12 WBC 9.4 RBC 2.88 L Hgb 8.4 L Hct 25.4 L MCV 88.2 MCH 29.2 MCHC 33.1 RDW 21.8 H Plt Count 124 L MPV 12.0 Immature Gran % (Auto) 0.4 Neut % (Auto) 79.2 H Lymph % (Auto) 10.7 L [place] % (Auto) 7.8 Eos % (Auto) 1.0 Baso % (Auto) 0.9 Lymph # (Auto) 1.0 L [place] # (Auto) 0.7 Eos # (Auto) 0.1 Baso # (Auto) 0.1 Abs Immat Gran (auto) 0.04 H Absolute Neuts (auto) 7.4 Absolute Nucleated RBC 0.040 H Nucleated RBC % (auto) 0.4 H Smear Tech's Comments PT INR APTT Sodium 137 Potassium 4.2 Chloride 103 Carbon Dioxide 19 L Anion Gap 19 BUN 10 Creatinine 3.02 H Estim Creat Clear Calc 19.2 Estimated GFR 21 POC Glucose 142 H Random Glucose Fasting Glucose 163 H Estimat Average Glucose Hemoglobin A1c % Lactic Acid Lactic Acid Fup @ 2Hr Lactic Acid Fup @ 4Hr Calcium 9.0 Magnesium Iron TIBC % Saturation Unsat Iron Binding Ferritin Total Bilirubin Direct Bilirubin AST ALT Alkaline Phosphatase Total Protein Albumin Lipase Alpha Fetoprotein Vitamin B12 Folate Urine Color Urine Appearance Urine pH Ur Specific [place] Urine Protein Urine Glucose (UA) Urine Ketones Urine Blood Urine Nitrite Ur Leukocyte Esterase Urine RBC Urine WBC Ur Squamous Epith Cells Urine Bacteria Urine Mucus Urine Yeast Peritoneal WBC Peritoneal RBC Periton Neutrophils Periton Lymphocytes Peritoneal Monocytes Peritoneal Eosinophils Peritoneal Other Cells Peritoneal Tot Protein Peritoneal LDH Peritoneal Glucose C. difficile Toxin A&B C. difficile Antigen C. difficile Interpret Coronavirus (PCR) COVID-19 ([facility]) COVID-19 Clin Com HIV 1&2 Ab/P24 Ag 4thGn Influenza Type A (PCR) Influenza Type B (PCR) RSV RNA Qual (PCR) Blood Type Antibody Screen Crossmatch 07/27/20 07/27/20 07/27/20 06:12 07:20 11:13 WBC RBC Hgb Hct MCV MCH MCHC RDW Plt Count MPV Immature Gran % (Auto) Neut % (Auto) Lymph % (Auto) [place] % (Auto) Eos % (Auto) Baso % (Auto) Lymph # (Auto) [place] # (Auto) Eos # (Auto) Baso # (Auto) Abs Immat Gran (auto) Absolute Neuts (auto) Absolute Nucleated RBC Nucleated RBC % (auto) Smear Tech's Comments PT INR APTT Sodium Potassium Chloride Carbon Dioxide Anion Gap BUN Creatinine Estim Creat Clear Calc Estimated GFR POC Glucose 160 H 172 H Random Glucose Fasting Glucose Estimat Average Glucose Hemoglobin A1c % Lactic Acid Lactic Acid Fup @ 2Hr Lactic Acid Fup @ 4Hr Calcium Magnesium Iron TIBC % Saturation Unsat Iron Binding Ferritin Total Bilirubin Direct Bilirubin AST ALT Alkaline Phosphatase Total Protein Albumin Lipase Alpha Fetoprotein 928.9 H Vitamin B12 Folate Urine Color Urine Appearance Urine pH Ur Specific [place] Urine Protein Urine Glucose (UA) Urine Ketones Urine Blood Urine Nitrite Ur Leukocyte Esterase Urine RBC Urine WBC Ur Squamous Epith Cells Urine Bacteria Urine Mucus Urine Yeast Peritoneal WBC Peritoneal RBC Periton Neutrophils Periton Lymphocytes Peritoneal Monocytes Peritoneal Eosinophils Peritoneal Other Cells Peritoneal Tot Protein Peritoneal LDH Peritoneal Glucose C. difficile Toxin A&B C. difficile Antigen C. difficile Interpret Coronavirus (PCR) COVID-19 ([facility]) COVID-19 Clin Com HIV 1&2 Ab/P24 Ag 4thGn Influenza Type A (PCR) Influenza Type B (PCR) RSV RNA Qual (PCR) Blood Type Antibody Screen Crossmatch 07/27/20 07/27/20 07/28/20 16:25 20:18 06:09 WBC 8.4 RBC 2.37 L Hgb 7.0 L* Hct 20.9 L* MCV 88.2 MCH 29.5 MCHC 33.5 RDW 21.8 H Plt Count 123 L MPV 11.1 Immature Gran % (Auto) Neut % (Auto) Lymph % (Auto) [place] % (Auto) Eos % (Auto) Baso % (Auto) Lymph # (Auto) [place] # (Auto) Eos # (Auto) Baso # (Auto) Abs Immat Gran (auto) Absolute Neuts (auto) Absolute Nucleated RBC 0.020 H Nucleated RBC % (auto) 0.2 Smear Tech's Comments PT INR APTT Sodium Potassium Chloride Carbon Dioxide Anion Gap BUN Creatinine Estim Creat Clear Calc Estimated GFR POC Glucose 163 H 153 H Random Glucose Fasting Glucose Estimat Average Glucose Hemoglobin A1c % Lactic Acid Lactic Acid Fup @ 2Hr Lactic Acid Fup @ 4Hr Calcium Magnesium Iron TIBC % Saturation Unsat Iron Binding Ferritin Total Bilirubin Direct Bilirubin AST ALT Alkaline Phosphatase Total Protein Albumin Lipase Alpha Fetoprotein Vitamin B12 Folate Urine Color Urine Appearance Urine pH Ur Specific [place] Urine Protein Urine Glucose (UA) Urine Ketones Urine Blood Urine Nitrite Ur Leukocyte Esterase Urine RBC Urine WBC Ur Squamous Epith Cells Urine Bacteria Urine Mucus Urine Yeast Peritoneal WBC Peritoneal RBC Periton Neutrophils Periton Lymphocytes Peritoneal Monocytes Peritoneal Eosinophils Peritoneal Other Cells Peritoneal Tot Protein Peritoneal LDH Peritoneal Glucose C. difficile Toxin A&B C. difficile Antigen C. difficile Interpret Coronavirus (PCR) COVID-19 ([facility]) COVID-19 Clin Com HIV 1&2 Ab/P24 Ag 4thGn Influenza Type A (PCR) Influenza Type B (PCR) RSV RNA Qual (PCR) Blood Type Antibody Screen Crossmatch 07/28/20 07/28/20 07/28/20 06:09 07:06 16:28 WBC RBC Hgb Hct MCV MCH MCHC RDW Plt Count MPV Immature Gran % (Auto) Neut % (Auto) Lymph % (Auto) [place] % (Auto) Eos % (Auto) Baso % (Auto) Lymph # (Auto) [place] # (Auto) Eos # (Auto) Baso # (Auto) Abs Immat Gran (auto) Absolute Neuts (auto) Absolute Nucleated RBC Nucleated RBC % (auto) Smear Tech's Comments PT INR APTT Sodium 137 Potassium 3.4 Chloride 107 Carbon Dioxide 17 L Anion Gap 16 BUN 20 H D Creatinine 4.07 H* Estim Creat Clear Calc 14.2 Estimated GFR 15 POC Glucose 178 H 139 H Random Glucose 176 H D Fasting Glucose Estimat Average Glucose Hemoglobin A1c % Lactic Acid Lactic Acid Fup @ 2Hr Lactic Acid Fup @ 4Hr Calcium 8.8 Magnesium Iron TIBC % Saturation Unsat Iron Binding Ferritin Total Bilirubin Direct Bilirubin AST ALT Alkaline Phosphatase Total Protein Albumin Lipase Alpha Fetoprotein Vitamin B12 Folate Urine Color Urine Appearance Urine pH Ur Specific [place] Urine Protein Urine Glucose (UA) Urine Ketones Urine Blood Urine Nitrite Ur Leukocyte Esterase Urine RBC Urine WBC Ur Squamous Epith Cells Urine Bacteria Urine Mucus Urine Yeast Peritoneal WBC Peritoneal RBC Periton Neutrophils Periton Lymphocytes Peritoneal Monocytes Peritoneal Eosinophils Peritoneal Other Cells Peritoneal Tot Protein Peritoneal LDH Peritoneal Glucose C. difficile Toxin A&B C. difficile Antigen C. difficile Interpret Coronavirus (PCR) COVID-19 ([facility]) COVID-19 Clin Com HIV 1&2 Ab/P24 Ag 4thGn Influenza Type A (PCR) Influenza Type B (PCR) RSV RNA Qual (PCR) Blood Type Antibody Screen Crossmatch 07/28/20 07/29/20 07/29/20 20:04 05:58 05:58 WBC 8.8 RBC 2.44 L Hgb 7.2 L Hct 21.5 L MCV 88.1 MCH 29.5 MCHC 33.5 RDW 22.4 H Plt Count 141 L MPV 11.1 Immature Gran % (Auto) 0.3 Neut % (Auto) 78.8 H Lymph % (Auto) 12.5 L [place] % (Auto) 6.8 Eos % (Auto) 0.9 Baso % (Auto) 0.7 Lymph # (Auto) 1.1 L [place] # (Auto) 0.6 Eos # (Auto) 0.1 Baso # (Auto) 0.1 Abs Immat Gran (auto) 0.03 Absolute Neuts (auto) 6.9 Absolute Nucleated RBC 0.050 H Nucleated RBC % (auto) 0.6 H Smear Tech's Comments PT INR APTT Sodium 139 Potassium 3.5 Chloride 110 H Carbon Dioxide 15 L Anion Gap 18 BUN 31 H D Creatinine 4.98 H* Estim Creat Clear Calc 11.6 Estimated GFR 12 POC Glucose 171 H Random Glucose Fasting Glucose 184 H Estimat Average Glucose Hemoglobin A1c % Lactic Acid Lactic Acid Fup @ 2Hr Lactic Acid Fup @ 4Hr Calcium 9.3 Magnesium Iron TIBC % Saturation Unsat Iron Binding Ferritin Total Bilirubin Direct Bilirubin AST ALT Alkaline Phosphatase Total Protein Albumin Lipase Alpha Fetoprotein Vitamin B12 Folate Urine Color Urine Appearance Urine pH Ur Specific [place] Urine Protein Urine Glucose (UA) Urine Ketones Urine Blood Urine Nitrite Ur Leukocyte Esterase Urine RBC Urine WBC Ur Squamous Epith Cells Urine Bacteria Urine Mucus Urine Yeast Peritoneal WBC Peritoneal RBC Periton Neutrophils [place] Lymphocytes Peritoneal Monocytes Peritoneal Eosinophils Peritoneal Other Cells Peritoneal Tot Protein Peritoneal LDH Peritoneal Glucose C. difficile Toxin A&B C. difficile Antigen C. difficile Interpret Coronavirus (PCR) COVID-19 ([facility]) COVID-19 Clin Com HIV 1&2 Ab/P24 Ag 4thGn Influenza Type A (PCR) Influenza Type B (PCR) RSV RNA Qual (PCR) Blood Type Antibody Screen Crossmatch 07/29/20 07/29/20 07/29/20 07:09 11:53 19:54 WBC RBC Hgb Hct MCV MCH MCHC RDW Plt Count MPV Immature Gran % (Auto) Neut % (Auto) Lymph % (Auto) [place] % (Auto) Eos % (Auto) Baso % (Auto) Lymph # (Auto) [place] # (Auto) Eos # (Auto) Baso # (Auto) Abs Immat Gran (auto) Absolute Neuts (auto) Absolute Nucleated RBC Nucleated RBC % (auto) Smear Tech's Comments PT INR APTT Sodium Potassium Chloride Carbon Dioxide Anion Gap BUN Creatinine Estim Creat Clear Calc Estimated GFR POC Glucose 183 H 189 H 104 Random Glucose Fasting Glucose Estimat Average Glucose Hemoglobin A1c % Lactic Acid Lactic Acid Fup @ 2Hr Lactic Acid Fup @ 4Hr Calcium Magnesium Iron TIBC % Saturation Unsat Iron Binding Ferritin Total Bilirubin Direct Bilirubin AST ALT Alkaline Phosphatase Total Protein Albumin Lipase Alpha Fetoprotein Vitamin B12 Folate Urine Color Urine Appearance Urine pH Ur Specific [place] Urine Protein Urine Glucose (UA) Urine Ketones Urine Blood Urine Nitrite Ur Leukocyte Esterase Urine RBC Urine WBC Ur Squamous Epith Cells Urine Bacteria Urine Mucus Urine Yeast Peritoneal WBC Peritoneal RBC Periton Neutrophils Periton Lymphocytes Peritoneal Monocytes Peritoneal Eosinophils Peritoneal Other Cells Peritoneal Tot Protein Peritoneal LDH Peritoneal Glucose C. difficile Toxin A&B C. difficile Antigen C. difficile Interpret Coronavirus (PCR) COVID-19 ([facility]) COVID-19 Clin Com HIV 1&2 Ab/P24 Ag 4thGn Influenza Type A (PCR) Influenza Type B (PCR) RSV RNA Qual (PCR) Blood Type Antibody Screen Crossmatch 07/30/20 07/30/20 07/30/20 07:10 11:34 16:11 WBC RBC Hgb Hct MCV MCH MCHC RDW Plt Count MPV Immature Gran % (Auto) Neut % (Auto) Lymph % (Auto) [place] % (Auto) Eos % (Auto) Baso % (Auto) Lymph # (Auto) [place] # (Auto) Eos # (Auto) Baso # (Auto) Abs Immat Gran (auto) Absolute Neuts (auto) Absolute Nucleated RBC Nucleated RBC % (auto) Smear Tech's Comments PT INR APTT Sodium Potassium Chloride Carbon Dioxide Anion Gap BUN Creatinine Estim Creat Clear Calc Estimated GFR POC Glucose 119 H 112 84 Random Glucose Fasting Glucose Estimat Average Glucose Hemoglobin A1c % Lactic Acid Lactic Acid Fup @ 2Hr Lactic Acid Fup @ 4Hr Calcium Magnesium Iron TIBC % Saturation Unsat Iron Binding Ferritin Total Bilirubin Direct Bilirubin AST ALT Alkaline Phosphatase Total Protein Albumin Lipase Alpha Fetoprotein Vitamin B12 Folate Urine Color Urine Appearance Urine pH Ur Specific [place] Urine Protein Urine Glucose (UA) Urine Ketones Urine Blood Urine Nitrite Ur Leukocyte Esterase Urine RBC Urine WBC Ur Squamous Epith Cells Urine Bacteria Urine Mucus Urine Yeast Peritoneal WBC Peritoneal RBC Periton Neutrophils Periton Lymphocytes Peritoneal Monocytes Peritoneal Eosinophils Peritoneal Other Cells Peritoneal Tot Protein Peritoneal LDH Peritoneal Glucose C. difficile Toxin A&B C. difficile Antigen C. difficile Interpret Coronavirus (PCR) COVID-19 ([facility]) COVID-19 Clin Com HIV 1&2 Ab/P24 Ag 4thGn Influenza Type A (PCR) Influenza Type B (PCR) RSV RNA Qual (PCR) Blood Type Antibody Screen Crossmatch 07/30/20 07/31/20 07/31/20 20:18 07:23 11:16 WBC RBC Hgb Hct MCV MCH MCHC RDW Plt Count MPV Immature Gran % (Auto) Neut % (Auto) Lymph % (Auto) [place] % (Auto) Eos % (Auto) Baso % (Auto) Lymph # (Auto) [place] # (Auto) Eos # (Auto) Baso # (Auto) Abs Immat Gran (auto) Absolute Neuts (auto) Absolute Nucleated RBC Nucleated RBC % (auto) Smear Tech's Comments PT INR APTT Sodium Potassium Chloride Carbon Dioxide Anion Gap BUN Creatinine Estim Creat Clear Calc Estimated GFR POC Glucose 79 77 83 Random Glucose Fasting Glucose Estimat Average Glucose Hemoglobin A1c % Lactic Acid Lactic Acid Fup @ 2Hr Lactic Acid Fup @ 4Hr Calcium Magnesium Iron TIBC % Saturation Unsat Iron Binding Ferritin Total Bilirubin Direct Bilirubin AST ALT Alkaline Phosphatase Total Protein Albumin Lipase Alpha Fetoprotein Vitamin B12 Folate Urine Color Urine Appearance Urine pH Ur Specific [place] Urine Protein Urine Glucose (UA) Urine Ketones Urine Blood Urine Nitrite Ur Leukocyte Esterase Urine RBC Urine WBC Ur Squamous Epith Cells Urine Bacteria Urine Mucus Urine Yeast Peritoneal WBC Peritoneal RBC Periton Neutrophils Periton Lymphocytes Peritoneal Monocytes Peritoneal Eosinophils Peritoneal Other Cells Peritoneal Tot Protein Peritoneal LDH Peritoneal Glucose C. difficile Toxin A&B C. difficile Antigen C. difficile Interpret Coronavirus (PCR) COVID-19 ([facility]) COVID-19 Clin Com HIV 1&2 Ab/P24 Ag 4thGn Influenza Type A (PCR) Influenza Type B (PCR) RSV RNA Qual (PCR) Blood Type Antibody Screen Crossmatch 07/31/20 07/31/20 08/01/20 20:22 21:19 05:59 WBC 9.9 RBC 2.24 L Hgb 6.7 L* Hct 19.4 L* MCV 86.6 MCH 29.9 MCHC 34.5 RDW 22.5 H Plt Count 159 L MPV 10.5 Immature Gran % (Auto) Neut % (Auto) Lymph % (Auto) [place] % (Auto) Eos % (Auto) Baso % (Auto) Lymph # (Auto) [place] # (Auto) Eos # (Auto) Baso # (Auto) Abs Immat Gran (auto) Absolute Neuts (auto) Absolute Nucleated RBC 0.060 H Nucleated RBC % (auto) 0.6 H Smear Tech's Comments PT INR APTT Sodium Potassium Chloride Carbon Dioxide Anion Gap BUN Creatinine Estim Creat Clear Calc Estimated GFR POC Glucose 63 127 H Random Glucose Fasting Glucose Estimat Average Glucose Hemoglobin A1c % Lactic Acid Lactic Acid Fup @ 2Hr Lactic Acid Fup @ 4Hr Calcium Magnesium Iron TIBC % Saturation Unsat Iron Binding Ferritin Total Bilirubin Direct Bilirubin AST ALT Alkaline Phosphatase Total Protein Albumin Lipase Alpha Fetoprotein Vitamin B12 Folate Urine Color Urine Appearance Urine pH Ur Specific [place] Urine Protein Urine Glucose (UA) Urine Ketones Urine Blood Urine Nitrite Ur Leukocyte Esterase Urine RBC Urine WBC Ur Squamous Epith Cells Urine Bacteria Urine Mucus Urine Yeast Peritoneal WBC Peritoneal RBC Periton Neutrophils Periton Lymphocytes Peritoneal Monocytes Peritoneal Eosinophils Peritoneal Other Cells Peritoneal Tot Protein Peritoneal LDH Peritoneal Glucose C. difficile Toxin A&B C. difficile Antigen C. difficile Interpret Coronavirus (PCR) COVID-19 ([facility]) COVID-19 Clin Com HIV 1&2 Ab/P24 Ag 4thGn Influenza Type A (PCR) Influenza Type B (PCR) RSV RNA Qual (PCR) Blood Type Antibody Screen Crossmatch 08/01/20 08/01/20 08/01/20 05:59 05:59 07:32 WBC RBC Hgb Hct MCV MCH MCHC RDW Plt Count MPV Immature Gran % (Auto) Neut % (Auto) Lymph % (Auto) [place] % (Auto) Eos % (Auto) Baso % (Auto) Lymph # (Auto) [place] # (Auto) Eos # (Auto) Baso # (Auto) Abs Immat Gran (auto) Absolute Neuts (auto) Absolute Nucleated RBC Nucleated RBC % (auto) Smear Tech's Comments PT 15.1 H INR 1.3 H APTT Sodium 142 Potassium 3.0 L Chloride 106 Carbon Dioxide 23 Anion Gap 16 BUN 31 H Creatinine 5.26 H* Estim Creat Clear Calc 11.0 Estimated GFR 11 POC Glucose 95 Random Glucose 105 D Fasting Glucose Estimat Average Glucose Hemoglobin A1c % Lactic Acid Lactic Acid Fup @ 2Hr Lactic Acid Fup @ 4Hr Calcium 9.0 Magnesium Iron TIBC % Saturation Unsat Iron Binding Ferritin Total Bilirubin Direct Bilirubin AST ALT Alkaline Phosphatase Total Protein Albumin Lipase Alpha Fetoprotein Vitamin B12 Folate Urine Color Urine Appearance Urine pH Ur Specific [place] Urine Protein Urine Glucose (UA) Urine Ketones Urine Blood Urine Nitrite Ur Leukocyte Esterase Urine RBC Urine WBC Ur Squamous Epith Cells Urine Bacteria Urine Mucus Urine Yeast Peritoneal WBC Peritoneal RBC Periton Neutrophils Periton Lymphocytes Peritoneal Monocytes Peritoneal Eosinophils Peritoneal Other Cells Peritoneal Tot Protein Peritoneal LDH Peritoneal Glucose C. difficile Toxin A&B C. difficile Antigen C. difficile Interpret Coronavirus (PCR) COVID-19 ([facility]) COVID-19 Clin Com HIV 1&2 Ab/P24 Ag 4thGn Influenza Type A (PCR) Influenza Type B (PCR) RSV RNA Qual (PCR) Blood Type Antibody Screen Crossmatch 08/01/20 08/01/20 08/01/20 09:02 11:12 17:23 WBC RBC Hgb Hct MCV MCH MCHC RDW Plt Count MPV Immature Gran % (Auto) Neut % (Auto) Lymph % (Auto) [place] % (Auto) Eos % (Auto) Baso % (Auto) Lymph # (Auto) [place] # (Auto) Eos # (Auto) Baso # (Auto) Abs Immat Gran (auto) Absolute Neuts (auto) Absolute Nucleated RBC Nucleated RBC % (auto) Smear Tech's Comments PT INR APTT Sodium Potassium Chloride Carbon Dioxide Anion Gap BUN Creatinine Estim Creat Clear Calc Estimated GFR POC Glucose 115 118 H Random Glucose Fasting Glucose Estimat Average Glucose Hemoglobin A1c % Lactic Acid Lactic Acid Fup @ 2Hr Lactic Acid Fup @ 4Hr Calcium Magnesium Iron TIBC % Saturation Unsat Iron Binding Ferritin Total Bilirubin Direct Bilirubin AST ALT Alkaline Phosphatase Total Protein Albumin Lipase Alpha Fetoprotein Vitamin B12 Folate Urine Color Urine Appearance Urine pH Ur Specific [place] Urine Protein Urine Glucose (UA) Urine Ketones Urine Blood Urine Nitrite Ur Leukocyte Esterase Urine RBC Urine WBC Ur Squamous Epith Cells Urine Bacteria Urine Mucus Urine Yeast Peritoneal WBC Peritoneal RBC Periton Neutrophils Periton Lymphocytes Peritoneal Monocytes Peritoneal Eosinophils Peritoneal Other Cells Peritoneal Tot Protein Peritoneal LDH Peritoneal Glucose C. difficile Toxin A&B C. difficile Antigen C. difficile Interpret Coronavirus (PCR) COVID-19 ([facility]) COVID-19 Clin Com HIV 1&2 Ab/P24 Ag 4thGn Influenza Type A (PCR) Influenza Type B (PCR) RSV RNA Qual (PCR) Blood Type O Positive Antibody Screen NEGATIVE Crossmatch See Detail 08/01/20 08/02/20 08/02/20 21:13 07:14 07:24 WBC 11.4 H RBC 2.75 L D Hgb 8.0 L Hct 23.5 L D MCV 85.5 MCH 29.1 MCHC 34.0 RDW 21.4 H Plt Count 170 MPV 10.8 Immature Gran % (Auto) Neut % (Auto) Lymph % (Auto) [place] % (Auto) Eos % (Auto) Baso % (Auto) Lymph # (Auto) [place] # (Auto) Eos # (Auto) Baso # (Auto) Abs Immat Gran (auto) Absolute Neuts (auto) Absolute Nucleated RBC 0.060 H Nucleated RBC % (auto) 0.5 H Smear Tech's Comments PT INR APTT Sodium Potassium Chloride Carbon Dioxide Anion Gap BUN Creatinine Estim Creat Clear Calc Estimated GFR POC Glucose 106 107 Random Glucose Fasting Glucose Estimat Average Glucose Hemoglobin A1c % Lactic Acid Lactic Acid Fup @ 2Hr Lactic Acid Fup @ 4Hr Calcium Magnesium Iron TIBC % Saturation Unsat Iron Binding Ferritin Total Bilirubin Direct Bilirubin AST ALT Alkaline Phosphatase Total Protein Albumin Lipase Alpha Fetoprotein Vitamin B12 Folate Urine Color Urine Appearance Urine pH Ur Specific [place] Urine Protein Urine Glucose (UA) Urine Ketones Urine Blood Urine Nitrite Ur Leukocyte Esterase Urine RBC Urine WBC Ur Squamous Epith Cells Urine Bacteria Urine Mucus Urine Yeast Peritoneal WBC Peritoneal RBC Periton Neutrophils Periton Lymphocytes Peritoneal Monocytes Peritoneal Eosinophils Peritoneal Other Cells Peritoneal Tot Protein Peritoneal LDH Peritoneal Glucose C. difficile Toxin A&B C. difficile Antigen C. difficile Interpret Coronavirus (PCR) COVID-19 ([facility]) COVID-19 Clin Com HIV 1&2 Ab/P24 Ag 4thGn Influenza Type A (PCR) Influenza Type B (PCR) RSV RNA Qual (PCR) Blood Type Antibody Screen Crossmatch 08/02/20 08/02/20 08/02/20 07:24 10:55 11:10 WBC RBC Hgb Hct MCV MCH MCHC RDW Plt Count MPV Immature Gran % (Auto) Neut % (Auto) Lymph % (Auto) [place] % (Auto) Eos % (Auto) Baso % (Auto) Lymph # (Auto) [place] # (Auto) Eos # (Auto) Baso # (Auto) Abs Immat Gran (auto) Absolute Neuts (auto) Absolute Nucleated RBC Nucleated RBC % (auto) Smear Tech's Comments PT INR APTT Sodium 141 Potassium 2.9 L Chloride 104 Carbon Dioxide 20 L Anion Gap 20 BUN 37 H Creatinine 6.12 H* Estim Creat Clear Calc 9.4 Estimated GFR 9 POC Glucose 110 Random Glucose 100 Fasting Glucose Estimat Average Glucose Hemoglobin A1c % Lactic Acid Lactic Acid Fup @ 2Hr Lactic Acid Fup @ 4Hr Calcium 9.1 Magnesium Iron TIBC % Saturation Unsat Iron Binding Ferritin Total Bilirubin Direct Bilirubin AST ALT Alkaline Phosphatase Total Protein Albumin Lipase Alpha Fetoprotein Vitamin B12 Folate Urine Color Urine Appearance Urine pH Ur Specific [place] Urine Protein Urine Glucose (UA) Urine Ketones Urine Blood Urine Nitrite Ur Leukocyte Esterase Urine RBC Urine WBC Ur Squamous Epith Cells Urine Bacteria Urine Mucus Urine Yeast Peritoneal WBC Peritoneal RBC Periton Neutrophils Periton Lymphocytes Peritoneal Monocytes Peritoneal Eosinophils Peritoneal Other Cells Peritoneal Tot Protein Peritoneal LDH Peritoneal Glucose C. difficile Toxin A&B C. difficile Antigen C. difficile Interpret Coronavirus (PCR) COVID-19 ([facility]) Negative COVID-19 Clin Com See Note HIV 1&2 Ab/P24 Ag 4thGn Influenza Type A (PCR) Influenza Type B (PCR) RSV RNA Qual (PCR) Blood Type Antibody Screen Crossmatch 08/02/20 08/02/20 08/03/20 16:56 20:09 07:13 WBC RBC Hgb Hct MCV MCH MCHC RDW Plt Count MPV Immature Gran % (Auto) Neut % (Auto) Lymph % (Auto) [place] % (Auto) Eos % (Auto) Baso % (Auto) Lymph # (Auto) [place] # (Auto) Eos # (Auto) Baso # (Auto) Abs Immat Gran (auto) Absolute Neuts (auto) Absolute Nucleated RBC Nucleated RBC % (auto) Smear Tech's Comments PT INR APTT Sodium Potassium Chloride Carbon Dioxide Anion Gap BUN Creatinine Estim Creat Clear Calc Estimated GFR POC Glucose 97 103 86 Random Glucose Fasting Glucose Estimat Average Glucose Hemoglobin A1c % Lactic Acid Lactic Acid Fup @ 2Hr Lactic Acid Fup @ 4Hr Calcium Magnesium Iron TIBC % Saturation Unsat Iron Binding Ferritin Total Bilirubin Direct Bilirubin AST ALT Alkaline Phosphatase Total Protein Albumin Lipase Alpha Fetoprotein Vitamin B12 Folate Urine Color Urine Appearance Urine pH Ur Specific [place] Urine Protein Urine Glucose (UA) Urine Ketones Urine Blood Urine Nitrite Ur Leukocyte Esterase Urine RBC Urine WBC Ur Squamous Epith Cells Urine Bacteria Urine Mucus Urine Yeast Peritoneal WBC Peritoneal RBC Periton Neutrophils Periton Lymphocytes Peritoneal Monocytes Peritoneal Eosinophils Peritoneal Other Cells Peritoneal Tot Protein Peritoneal LDH Peritoneal Glucose C. difficile Toxin A&B C. difficile Antigen C. difficile Interpret Coronavirus (PCR) COVID-19 ([facility]) COVID-19 Clin Com HIV 1&2 Ab/P24 Ag 4thGn Influenza Type A (PCR) Influenza Type B (PCR) RSV RNA Qual (PCR) Blood Type Antibody Screen Crossmatch 08/03/20 08/03/20 08/03/20 07:18 11:10 16:06 WBC 13.9 H RBC 2.56 L Hgb 7.9 L Hct 22.4 L MCV 87.5 MCH 30.9 MCHC 35.3 RDW 22.5 H Plt Count 160 MPV 11.1 Immature Gran % (Auto) Neut % (Auto) Lymph % (Auto) [place] % (Auto) Eos % (Auto) Baso % (Auto) Lymph # (Auto) [place] # (Auto) Eos # (Auto) Baso # (Auto) Abs Immat Gran (auto) Absolute Neuts (auto) Absolute Nucleated RBC 0.070 H Nucleated RBC % (auto) 0.5 H Smear Tech's Comments PT INR APTT Sodium Potassium Chloride Carbon Dioxide Anion Gap BUN Creatinine Estim Creat Clear Calc Estimated GFR POC Glucose 90 106 Random Glucose Fasting Glucose Estimat Average Glucose Hemoglobin A1c % Lactic Acid Lactic Acid Fup @ 2Hr Lactic Acid Fup @ 4Hr Calcium Magnesium Iron TIBC % Saturation Unsat Iron Binding Ferritin Total Bilirubin Direct Bilirubin AST ALT Alkaline Phosphatase Total Protein Albumin Lipase Alpha Fetoprotein Vitamin B12 Folate Urine Color Urine Appearance Urine pH Ur Specific [place] Urine Protein Urine Glucose (UA) Urine Ketones Urine Blood Urine Nitrite Ur Leukocyte Esterase Urine RBC Urine WBC Ur Squamous Epith Cells Urine Bacteria Urine Mucus Urine Yeast Peritoneal WBC Peritoneal RBC Periton Neutrophils Periton Lymphocytes Peritoneal Monocytes Peritoneal Eosinophils Peritoneal Other Cells Peritoneal Tot Protein Peritoneal LDH Peritoneal Glucose C. difficile Toxin A&B C. difficile Antigen C. difficile Interpret Coronavirus (PCR) COVID-19 ([facility]) COVID-19 Clin Com HIV 1&2 Ab/P24 Ag 4thGn Influenza Type A (PCR) Influenza Type B (PCR) RSV RNA Qual (PCR) Blood Type Antibody Screen Crossmatch 08/03/20 08/04/20 08/04/20 20:12 03:40 08:18 WBC 15.8 H RBC 2.81 L Hgb 8.5 L Hct 24.6 L MCV 87.5 MCH 30.2 MCHC 34.6 RDW 22.8 H Plt Count 165 MPV 10.9 Immature Gran % (Auto) Neut % (Auto) Lymph % (Auto) [place] % (Auto) Eos % (Auto) Baso % (Auto) Lymph # (Auto) [place] # (Auto) Eos # (Auto) Baso # (Auto) Abs Immat Gran (auto) Absolute Neuts (auto) Absolute Nucleated RBC 0.060 H Nucleated RBC % (auto) 0.4 H Smear Tech's Comments PT INR APTT Sodium Potassium Chloride Carbon Dioxide Anion Gap BUN Creatinine Estim Creat Clear Calc Estimated GFR POC Glucose 99 117 H Random Glucose Fasting Glucose Estimat Average Glucose Hemoglobin A1c % Lactic Acid Lactic Acid Fup @ 2Hr Lactic Acid Fup @ 4Hr Calcium Magnesium Iron TIBC % Saturation Unsat Iron Binding Ferritin Total Bilirubin Direct Bilirubin AST ALT Alkaline Phosphatase Total Protein Albumin Lipase Alpha Fetoprotein Vitamin B12 Folate Urine Color Urine Appearance Urine pH Ur Specific [place] Urine Protein Urine Glucose (UA) Urine Ketones Urine Blood Urine Nitrite Ur Leukocyte Esterase Urine RBC Urine WBC Ur Squamous Epith Cells Urine Bacteria Urine Mucus Urine Yeast Peritoneal WBC Peritoneal RBC Periton Neutrophils Periton Lymphocytes Peritoneal Monocytes Peritoneal Eosinophils Peritoneal Other Cells Peritoneal Tot Protein Peritoneal LDH Peritoneal Glucose C. difficile Toxin A&B C. difficile Antigen C. difficile Interpret Coronavirus (PCR) COVID-19 ([facility]) COVID-19 Clin Com HIV 1&2 Ab/P24 Ag 4thGn Influenza Type A (PCR) Influenza Type B (PCR) RSV RNA Qual (PCR) Blood Type Antibody Screen Crossmatch 08/04/20 08/04/20 08:25 11:09 WBC RBC Hgb Hct MCV MCH MCHC RDW Plt Count MPV Immature Gran % (Auto) Neut % (Auto) Lymph % (Auto) [place] % (Auto) Eos % (Auto) Baso % (Auto) Lymph # (Auto) [place] # (Auto) Eos # (Auto) Baso # (Auto) Abs Immat Gran (auto) Absolute Neuts (auto) Absolute Nucleated RBC Nucleated RBC % (auto) Smear Tech's Comments PT INR APTT Sodium 139 Potassium 3.3 Chloride 108 Carbon Dioxide 17 L Anion Gap 17 BUN 31 H Creatinine 5.52 H* Estim Creat Clear Calc 10.5 Estimated GFR 10 POC Glucose 91 Random Glucose 114 Fasting Glucose Estimat Average Glucose Hemoglobin A1c % Lactic Acid Lactic Acid Fup @ 2Hr Lactic Acid Fup @ 4Hr Calcium 8.8 Magnesium Iron TIBC % Saturation Unsat Iron Binding Ferritin Total Bilirubin Direct Bilirubin AST ALT Alkaline Phosphatase Total Protein Albumin Lipase Alpha Fetoprotein Vitamin B12 Folate Urine Color Urine Appearance Urine pH Ur Specific [place] Urine Protein Urine Glucose (UA) Urine Ketones Urine Blood Urine Nitrite Ur Leukocyte Esterase Urine RBC Urine WBC Ur Squamous Epith Cells Urine Bacteria Urine Mucus Urine Yeast Peritoneal WBC Peritoneal RBC Periton Neutrophils Periton Lymphocytes Peritoneal Monocytes Peritoneal Eosinophils Peritoneal Other Cells Peritoneal Tot Protein Peritoneal LDH Peritoneal Glucose C. difficile Toxin A&B C. difficile Antigen C. difficile Interpret Coronavirus (PCR) COVID-19 ([facility]) COVID-19 Clin Com HIV 1&2 Ab/P24 Ag 4thGn Influenza Type A (PCR) Influenza Type B (PCR) RSV RNA Qual (PCR) Blood Type Antibody Screen Crossmatch Airway Mallampati Class: III TM Dist: >3cm Neck ROM: Limited Loose/Missing/Broken Teeth: Yes (very poor dentition missing teeth) Heart: RRR Lungs: CTA
--- NOTE | 2020-08-04 14:49 | PM.OP ---
Brief Operative Note Date of Service: 08/04/20 Pre-op diagnosis: coffee ground emesis Post-op diagnosis: same Procedure: see op note Surgeon: Galina Brody MD Anesthesia: MAC Estimated blood loss (mL): 20 Condition: stable Disposition: PACU
--- NOTE | 2020-08-04 14:49 | W.PM.OPN ---
Operative Note Operative Note Date of Service: 08/04/20 Narrative: Procedure Description: EGD FLEXIBLE TRANSORAL UPPER GASTROINTESTINAL ENDOSCOPY UPPER ENDOSCOPY Consent: Indications for the procedure and potential complications of bleeding, perforation, reaction to medications and missed diagnosis were discussed with the patient and informed consent was obtained. Instrument: Olympus GIF H 190 J mid size upper endoscope Patient was intubated with GA Monitoring: Vital signs and clinical assessment, continuous EKG monitoring, Pulse oximetry, Carbon Dioxide monitoring and blood pressure monitoring were done throughout the procedure. Procedure: The patient was placed in the left lateral decubitis position and pre-procedure medications were administered and a bite block was placed. The endoscope was inserted into the mouth and advanced under direct vision to the third part of duodenum. A careful inspection was made as the upper endoscope was withdrawn including a retroflexed examination of the proximal stomach; Findings and interventions are described below. 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 Clips from prior procedure were noted in the cardia side of GEJ. Stomach: Patchy gastric erythema with mosaic pattern consistent with portal hypertensive gastropathy. Grade 2 flap valve on retroflexed examination of the cardia. Duodenum: congestion noted in duodenum. Intervention: variceal banding with hemospray Impression/Findings: possible variceal bleeding with high risk stigmata with white nipple sign PLAN: allow soft diet and advance tomorrow as tolerated cont with PPI and carafate 10 cc QID may need future banding depending on clinical status cont with 5 d of rocephin
--- NOTE | 2020-08-04 15:51 | MHC.CLN ---
F/U PT IS CURRENTLY NPO S/P EGD TODAY PREVIOUS PO INTAKE REMAINED POOR NOTED BLOODY VOMITUS X 2 PARACENTESIS TODAY PER MD GTUBE PLACEMENT WITH ENDOSCOPY NOT A GOOD OPTION D/T VARICES PER GI MD CONSULT RD IF TPN WARRANTED IF DIET TO ADVANCE; RECOMMEND 2000DM DIET AND RE-START LACIE AND ENSURE BID TO PROMOTE WOUND HEALING FOLLOWING
[2020-08-04 16:44] LABS: Glucose, Whole Blood 78 mg/dL (60-115)
[2020-08-04 20:19] LABS: Glucose, Whole Blood 71 mg/dL (60-115)
[2020-08-04] MEDS: Nystatin Cream 15 GM TUBE 1 APPL TOPICAL (22:54)
[2020-08-04] MEDS: 0.9 % Sodium Chloride Flush 3 ML SYRINGE IVFLUSH (22:55)
[2020-08-05] VITALS: BP 97/54; PULSE 101; RESP 16; TEMP 36.9; O2SAT 98
[2020-08-05 04:00] VITALS: BP 97/54; PULSE 101; RESP 16; TEMP 37.1; O2SAT 96
[2020-08-05 07:02] LABS: INTERNATIONAL NORM RATIO 1.2 (0.9-1.1); Prothrombin Time 14.3 SEC (10.8-13.0)
[2020-08-05 07:18] LABS: Hematocrit 25.6 % (42-52); Hemoglobin 8.9 g/dl (14.0-18.0); Mean Corpuscular HGB Conc 34.8 g/dl (31.0-36.0); Mean Corpuscular Hemoglobin 30.8 pg (27.0-33.0); Mean Corpuscular Volume 88.6 fL (80-98); Mean Platelet Volume 10.5 fL (9.4-12.4); NRBC Pct Auto 0.2 /100WBC (0.0-0.2); Platelet Count 135 X10*3/uL (160-400); Red Blood Count 2.89 X10*6/uL (4.60-5.80); Red Cell Distribution Width 22.3 % (11.0-16.0); White Blood Count 14.4 X10*3/uL (4.8-10.8)
[2020-08-05 07:31] LABS: Alanine Aminotransferase 13 U/L (0-40); Albumin Level 3.3 g/dL (3.5-5.0); Alkaline Phosphatase 725 U/L (39-117); Anion Gap 20 (12-20); Aspartate Amino Transferase 74 U/L (5-37); Bilirubin Direct 2.4 mg/dL (0.0-0.5); Blood Urea Nitrogen 38 mg/dL (9-16); Calcium 8.9 mg/dL (8.4-10.2); Carbon Dioxide 15 mmol/L (22-29); Chloride 110 mmol/L (96-108); Estimated Glomerular Filt Rate 9; Glucose Random 67 mg/dL (60-115); Potassium 3.5 mmol/L (3.3-5.1); Sodium 141 mmol/L (135-145); Total Protein 6.9 g/dL (6.5-8.0)
[2020-08-05 07:35] VITALS: BP 94/53; PULSE 97; RESP 21; TEMP 36.1; O2SAT 96
--- NOTE | 2020-08-05 07:42 | PC.NURSE ---
Lab called with creat of 6.[address] Clay via tiger text. Pt going to dialysis today.
[2020-08-05] MEDS: 0.9 % Sodium Chloride Flush 3 ML SYRINGE IVFLUSH ×2 (07:51→16:11)
--- NOTE | 2020-08-05 11:57 | HO.POSTANES ---
Post Anesthesia Evaluation Post Anesthesia Evaluation Vital Signs: Vital Signs Temp Pulse Resp BP Pulse Ox 08/05/20 07:35 97.0 F 97 21 H 94/53 L 96 08/05/20 04:00 98.8 F 101 H 16 97/54 L 96 08/05/20 00:00 98.4 F 101 H 16 97/54 L 98 Anesthesia: General Endotracheal-GETA Mental Status: Awake Pain Control: Satisfactory Nausea/Vomiting: None Hydration: Adequate Anesthesia-Related Issues: No Anes. Related Issues
--- NOTE | 2020-08-05 12:09 | P.PNIM_ITS ---
Subjective Subjective Date of Service: 08/05/20 Interval History: the patient was seen and evaluated this morning Laying in bed, complaining abdominal pain and distension No reported further hematemesis overnight,Hemoglobin remained stable after 1 unit transfusion Denies any fever, chills or shortness of breath No reported other overnight events. Systemic review: No fever, chills but have generalized weakness No chest pain, palpitation No shortness of breath or coughing Reporting abdominal pain, with vomiting of blood feeling weak overall Physical Exam Vital Signs: Vital Signs: Last Vital Signs Temp 97.0 F 08/05/20 07:35 Pulse 97 08/05/20 07:35 Resp 21 H 08/05/20 07:35 BP 94/53 L 08/05/20 07:35 Pulse Ox 96 08/05/20 07:35 Body Mass Index 21.9 Const: Other: Constitutional : Alert, oriented to self, not in distress, ill- appearing Neck : Normal inspection, Supple, temporary dialysis catheter in place with no surrounding erythema or bleeding Cardiovascular : RRR, S1 S2, no lower extremity edema Respiratory : Failure bilateral air entry, no crackles, wheezes or rhonchi Gastrointestinal: soft, lax, for moderately distended abdomen, generalized abdominal tenderness on palpation Skin : Warm/Dry, buttock wounds but no ulcer, Neurological : Alert & oriented x3, No focal deficit Objective Data Current Medications Generic Name Dose Route Start Last Admin Trade Name Freq PRN Reason Stop Dose Admin Ascorbic Acid 500 mg 07/19/20 09:00 08/05/20 09:53 Ascorbic Acid 500 Mg Tablet PO Not Given DAILY ROJAS Atorvastatin Calcium 40 mg 07/18/20 21:00 08/04/20 22:50 Atorvastatin Calcium 40 Mg Tablet PO Not Given BEDTIME ROJAS Ferrous Sulfate 324 mg 07/19/20 09:00 08/05/20 09:53 Ferrous Sulfate 324 Mg Tablet.Dr PO Not Given DAILY ROJAS Ceftriaxone Sodium 1 gm/ 50 mls @ 100 mls/hr 08/04/20 12:00 08/05/20 11:45 Sodium Chloride IV Not Given Q24H ROJAS Midodrine 20 mg 07/31/20 17:00 08/05/20 11:45 Midodrine Hcl 10 Mg Tablet PO Not Given TIDWM ROJAS Mirtazapine 7.5 mg 07/18/20 21:00 08/04/20 22:55 Mirtazapine 7.5 Mg Tablet PO Not Given BEDTIME [facility] Morphine Sulfate 1 mg 08/05/20 09:15 Morphine Sulfate 2 Mg/Ml Cartridge IVPUSH Q4H PRN Pain, Severe (Pain Scale 7-10) Nystatin 1 appl 07/18/20 21:00 08/05/20 09:54 Nystatin Cream 15 Gm Tube TOPICAL Not Given BID [facility] Protocol Omeprazole 40 mg 07/19/20 06:30 08/05/20 05:56 Omeprazole 40 Mg Capsule.Dr PO Not Given BID@0630,1630 [facility] Ondansetron HCl 4 mg 07/18/20 18:17 07/27/20 15:58 Ondansetron Hcl 4 Mg/2 Ml Vial IVPUSH 4 mg Q8H PRN Administration Nausea and Vomiting Pharmacy Consult 1 each 07/18/20 09:22 Consult Rx Perform Med Rec MISCELLANE ONCE PRN Consult order Sodium Bicarbonate 650 mg 07/18/20 21:00 08/05/20 09:54 Sodium Bicarbonate 650 Mg Tablet PO Not Given TID [facility] Sodium Chloride 3 ml 07/18/20 18:17 08/05/20 07:51 0.9 % Sodium Chloride Flush 3 Ml Syringe IVFLUSH 3 ml QSHIFT [facility] Administration Sucralfate 1 gm 07/18/20 18:17 08/05/20 11:45 Sucralfate Oral Suspension 1 Gm/10 Ml Oral.Susp PO Not Given QIDACHS [facility] Tamsulosin HCl 0.4 mg 07/18/20 21:00 08/04/20 22:55 Tamsulosin Hcl 0.4 Mg Capsule PO Not Given BEDTIME [facility] Vitamin D 50 mcg 07/19/20 09:00 08/05/20 09:53 Cholecalciferol (Vitamin D3) 25 Mcg Tablet PO Not Given DAILY [facility] Labs CBC & Chem 7: 08/05/20 06:32 08/05/20 06:33 Microbiology Microbiology Results: Microbiology 07/23/20 15:17 Abdominal Fluid Gram Stain - Final 07/23/20 15:17 Abdominal Fluid Routine Culture - Final No growth after 2 days 07/23/20 15:17 Abdominal Fluid Anaerobic Culture - Final NO GROWTH AFTER 5 DAYS 07/20/20 14:44 Blood - Central Line Blood Culture - Final No growth after 5 days. 07/20/20 14:33 Blood - Central Line Blood Culture - Final No growth after 5 days. 07/18/20 10:54 Blood - Venous Blood Culture - Final No growth after 5 days. 07/18/20 10:41 Blood - Venous Blood Culture - Final No growth after 5 days. 07/18/20 13:34 Abdominal Fluid Gram Stain - Final 07/18/20 13:34 Abdominal Fluid Anaerobic Culture - Final NO GROWTH AFTER 5 DAYS 07/18/20 13:34 Abdominal Fluid Body Fluid Culture - Final No growth after 2 days 07/18/20 Unknown Urine clean catch - Clean Catch Midstream Urine Culture - Final Nevaeh albicans Assessment and Plan (1) TREMAYNE (acute kidney injury): Status: Acute (2) Hypotension: Status: Acute (3) Hematemesis: Status: Acute (4) Liver cirrhosis: Status: Acute (5) ESRD (end stage renal disease) on dialysis: Status: Acute (6) Frailty: Status: Acute Assessment and Plan: 70yo M with cirrhosis with ascites, DM2, anemia, severe malnutrition recent admission 06/30-07/14/20 for anuric TREMAYNE with AGMA/NAGMA progressing to HD dependence 07/03/20 with hepatorenal syndrome, obstructive uropathy without hydronephrosis s/p bilateral ureteral stents re-admitted from SNF due to lethargy, decreased PO, FTT, gross hematuria in Ch, abdominal discomfort, fever Hematemesis Secondary to esophageal varices bleed Hemoglobin stable overnight after 1 unit blood transfusion at 8 point INR 1.2, received dose of vitamin K Continue PPI, octreotide EGD showing active Grade II varices with white nipple sign with 3 bands applied Patient still at high risk of rebleed Large Ascites Abdominal pain Concerning for SBP To do paracentesis today with fluid analysis To start IV antibiotics of ceftriaxone To give albumin after paracentesis Use morphine as needed for pain Hypotension stable low readings of 90s above 50s Secondary to general deconditioning, cirrhosis, decreased p.o. intake, new dialysis Seems to improve with midodrine but he refuses them on occasions like this morning Continue to monitor, add fluid boluses as needed for symptomatic hypotension Dialysis catheter problem Patient removed the catheter while delirious Placed a new temporary dialysis catheter by IR, was not working with during dialysis session Permanent cath needed at [facility] To place a PermCath by IR Physical deconditioning Patient will need extensive rehabilitation physical therapy evaluation Acute on chronic anemia anemia of chronic disease Hemoglobin improved to 8.9 after total of 3 units transfusion Continue to monitor H and H of 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
--- NOTE | 2020-08-05 13:36 | MHC.CM.PN ---
nurse healthcare account manager note electronic medical record reviewed along with case discussed with staff nruse. and discussed with the hospitalist . patient s/p endoscopy 08/04/20 grad 11 varicies 3 bands applied, large ascities and [id number] pain plan to do paracenrtesis, tunneled hemo dialysis catheter placed today buy interventional radiology. healthcare account manager to continue to follow for discharge needs started hemdialysis on july 03/2021 . clinical updates sent to kate
[2020-08-05 13:49] LABS: Glucose, Whole Blood 85 mg/dL (60-115)
[2020-08-05 14:08] VITALS: BP 102/53; PULSE 97; RESP 18; TEMP 36.4; O2SAT 96
--- NOTE | 2020-08-05 14:17 | W.MHC.ACPN ---
Advanced Care Planning Note Advanced Care Planning Note Discussed with: family member(s) Time spent (in minutes): 18 Narrative: I had a chance to talk with Rasta Tidwell the brother and healthcare proxy for the patient regarding the patient current hospital stay, complaining medical problems goals of care. Patient has been deteriorating since the hospital stay with worsening mentation, decreased oral intake, end-stage renal disease on dialysis with pulling his dialysis catheter twice, worsening ascites and recent abdominal pain and hypotension. I explained to the healthcare proxy the patient situation and from most recent discussion with the patient yesterday with said he wants to live. I agree with the HCP that will not interfere with the patient wishes and will try your best to keep him alive with all kind of medical support we can offer. We discussed on the other a situation of the resuscitation CPR. I explained to the HCP that CPR would not be the best idea for the patient given that he is cachectic, as blood disc E airy and any CPR with end up with multiple ribs fracture and internal bleeding. He seemed to be understanding given the fact that expectations are not high with recovery. We agreed on signing a a MOLST form and change his status to DNR DNI. The brother will visiting tomorrow and will get a copy from the MOLST form I signed today Problems Discussed (1) TREMAYNE (acute kidney injury): (2) Hypotension: (3) Hematemesis: (4) Liver cirrhosis: (5) ESRD (end stage renal disease) on dialysis: (6) Frailty:
[2020-08-05 16:00] VITALS: BP 95/55; PULSE 96; RESP 14; TEMP 36.4; O2SAT 99
[2020-08-05 17:35] LABS: Glucose, Whole Blood 82 mg/dL (60-115)
[2020-08-05 19:47] VITALS: BP 105/56; PULSE 94; RESP 15; TEMP 36.3; O2SAT 97
[2020-08-05 20:19] LABS: Glucose, Whole Blood 86 mg/dL (60-115)
[2020-08-05] MEDS: ondansetron HCL 4 MG/2 ML VIAL IVPUSH (20:31)
[2020-08-05] MEDS: Sodium Bicarbonate 650 MG TABLET PO (21:54)
[2020-08-05] MEDS: Atorvastatin Calcium 40 MG TABLET PO (21:54)
[2020-08-05] MEDS: Tamsulosin HCL 0.4 MG CAPSULE PO (21:54)
[2020-08-05] MEDS: Sucralfate Oral Suspension 1 GM/10 ML ORAL.SUSP PO (21:54)
[2020-08-05] MEDS: Mirtazapine 7.5 MG TABLET PO (21:54)
[2020-08-05] MEDS: Nystatin Cream 15 GM TUBE 1 APPL TOPICAL (21:59)
[2020-08-06] VITALS (20 sets, daily range): BP systolic 63–97; BP diastolic 36–60; PULSE 63–100; RESP 16–20; TEMP 35.7–36.8; O2SAT 92–100
[2020-08-06] MEDS: 0.9 % Sodium Chloride Flush 3 ML SYRINGE IVFLUSH ×3 (00:17→16:37)
--- NOTE | 2020-08-06 03:16 | PC.NURSE ---
PATIENT NOTED TO BE INCONTINENT OF STOOL AT APPROX., 0200, MODERATE AMOUNT SOFT STOOL WITH NOTED BLOOD AND SOME CLOTS MIXED IN. PT ALERT, TALKING, VITALS WITH NO SIGNIFICANT CHANGES, 98/60-90-18, LUNG HOLDEN DIM IN BASES. CLEANSED AND SKIN CARE PROVIDED. HOSPITALIST ON DUTY INFORMED AND TOLD PT S/P EGD WITH BANDING(SEE REPORT), AND REPORT OF BLOOD TINGED SPUTUM. NO NEW ORDERS SENT AFTER MD READ AND NSG BAND SHOVER UPDATED. WILL CONTINUE TO MONITOR CLOSELY.
[2020-08-06] MEDS: Omeprazole 40 MG CAPSULE.DR PO (05:47)
[2020-08-06 06:48] LABS: Hematocrit 21.7 % (42-52); Hemoglobin 7.3 g/dl (14.0-18.0); Mean Corpuscular HGB Conc 33.6 g/dl (31.0-36.0); Mean Corpuscular Hemoglobin 30.4 pg (27.0-33.0); Mean Corpuscular Volume 90.4 fL (80-98); Mean Platelet Volume 11.7 fL (9.4-12.4); NRBC Pct Auto 0.2 /100WBC (0.0-0.2); Red Cell Distribution Width 22.7 % (11.0-16.0); White Blood Count 16.2 X10*3/uL (4.8-10.8)
[2020-08-06 06:49] LABS: Platelet Count 94 X10*3/uL (160-400)
[2020-08-06 07:13] LABS: Anion Gap 20 (12-20); Blood Urea Nitrogen 47 mg/dL (9-16); Carbon Dioxide 12 mmol/L (22-29); Chloride 113 mmol/L (96-108); Creatinine Clr Calc Pharmacy 8.1; Estimated Glomerular Filt Rate 8; Glucose Random 86 mg/dL (60-115); Potassium 3.6 mmol/L (3.3-5.1); Sodium 141 mmol/L (135-145)
[2020-08-06 07:37] LABS: Glucose, Whole Blood 102 mg/dL (60-115)
[2020-08-06] MEDS: Midodrine HCl 10 MG TABLET 20 MG PO ×3 (08:37→16:43)
[2020-08-06] MEDS: Sucralfate Oral Suspension 1 GM/10 ML ORAL.SUSP PO (08:37)
--- NOTE | 2020-08-06 11:48 | HO.PM.IMPN ---
Subjective Subjective Date of Service: 08/06/20 Interval History: weak, had bloody BM overnight Cardiovascular Cardiovascular: Reports no additional cardiovascular complaints Respiratory Respiratory: Reports no additional respiratory complaints Physical Exam Vital Signs: Vital Signs: Last Vital Signs Temp 97.0 F 08/06/20 07:27 Pulse 93 08/06/20 07:27 Resp 19 08/06/20 07:27 BP 90/51 L 08/06/20 07:27 Pulse Ox 97 08/06/20 07:27 Body Mass Index 21.9 General: lethargic O times 3, ill appearing Resp: diminshed CVS: S1,S2,RRR GI: soft, non tender, distended Neuro: motor grossly weak Psych: flat affect Objective Data Current Medications Generic Name Dose Route Start Last Admin Trade Name Shahzadq PRN Reason Stop Dose Admin Ascorbic Acid 500 mg 07/19/20 09:00 08/06/20 11:33 Ascorbic Acid 500 Mg Tablet PO Not Given DAILY ROJAS Atorvastatin Calcium 40 mg 07/18/20 21:00 08/05/20 21:54 Atorvastatin Calcium 40 Mg Tablet PO 40 mg BEDTIME ROJAS Administration Ferrous Sulfate 324 mg 07/19/20 09:00 08/06/20 11:33 Ferrous Sulfate 324 Mg Tablet. PO Not Given DAILY ROJAS Ceftriaxone Sodium 1 gm/ 50 mls @ 100 mls/hr 08/04/20 12:00 08/05/20 11:45 Sodium Chloride IV Not Given Q24H ROJAS Sodium Chloride 1,000 mls @ 999 mls/hr 08/06/20 11:30 Ns IVCONT 08/06/20 13:30 .Q1H1M ROJAS Midodrine 20 mg 07/31/20 17:00 08/06/20 11:34 Midodrine Hcl 10 Mg Tablet PO 20 mg TIDWM ROJAS Administration Mirtazapine 7.5 mg 07/18/20 21:00 08/05/20 21:54 Mirtazapine 7.5 Mg Tablet PO 7.5 mg BEDTIME ROJAS Administration Morphine Sulfate 0.5 mg 08/05/20 14:17 Morphine Sulfate 2 Mg/Ml Cartridge IVPUSH Q4H PRN Pain, Severe (Pain Scale 7-10) Nystatin 1 appl 07/18/20 21:00 08/06/20 11:33 Nystatin Cream 15 Gm Tube TOPICAL Not Given BID [facility] Protocol Octreotide Acetate 50 mcg 08/06/20 11:45 Octreotide Acetate 100 Mcg/Ml Ampul IVPUSH Q8H [facility] Ondansetron HCl 4 mg 07/18/20 18:17 08/05/20 20:31 Ondansetron Hcl 4 Mg/2 Ml Vial IVPUSH 4 mg Q8H PRN Administration Nausea and Vomiting Pantoprazole Sodium 40 mg 08/06/20 11:30 Pantoprazole Sodium 40 Mg/10 Ml Vial IVPUSH BID@0630,1630 [facility] Pharmacy Consult 1 each 07/18/20 09:22 Consult Rx Perform Med Rec MISCELLANE ONCE PRN Consult order Sodium Bicarbonate 650 mg 07/18/20 21:00 08/06/20 11:34 Sodium Bicarbonate 650 Mg Tablet PO Not Given TID [facility] Sodium Chloride 3 ml 07/18/20 18:17 08/06/20 11:33 0.9 % Sodium Chloride Flush 3 Ml Syringe IVFLUSH 3 ml QSHIFT [facility] Administration Sucralfate 1 gm 07/18/20 18:17 08/06/20 11:34 Sucralfate Oral Suspension 1 Gm/10 Ml Oral.Susp PO Not Given QIDACHS [facility] Tamsulosin HCl 0.4 mg 07/18/20 21:00 08/05/20 21:54 Tamsulosin Hcl 0.4 Mg Capsule PO 0.4 mg BEDTIME [facility] Administration Vitamin D 50 mcg 07/19/20 09:00 08/06/20 11:33 Cholecalciferol (Vitamin D3) 25 Mcg Tablet PO Not Given DAILY [facility] Labs CBC & Chem 7: 08/06/20 05:54 08/06/20 05:54 Microbiology Microbiology Results: Microbiology 07/23/20 15:17 Abdominal Fluid Gram Stain - Final 07/23/20 15:17 Abdominal Fluid Routine Culture - Final No growth after 2 days 07/23/20 15:17 Abdominal Fluid Anaerobic Culture - Final NO GROWTH AFTER 5 DAYS 07/20/20 14:44 Blood - Central Line Blood Culture - Final No growth after 5 days. 07/20/20 14:33 Blood - Central Line Blood Culture - Final No growth after 5 days. 07/18/20 10:54 Blood - Venous Blood Culture - Final No growth after 5 days. 07/18/20 10:41 Blood - Venous Blood Culture - Final No growth after 5 days. 07/18/20 13:34 Abdominal Fluid Gram Stain - Final 07/18/20 13:34 Abdominal Fluid Anaerobic Culture - Final NO GROWTH AFTER 5 DAYS 07/18/20 13:34 Abdominal Fluid Body Fluid Culture - Final No growth after 2 days 07/18/20 Unknown Urine clean catch - Clean Catch Midstream Urine Culture - Final Nevaeh albicans Assessment and Plan (1) TREMAYNE (acute kidney injury): Status: Acute (2) Hypotension: Status: Acute (3) Hematemesis: Status: Acute (4) Liver cirrhosis: Status: Acute (5) ESRD (end stage renal disease) on dialysis: Status: Acute (6) Frailty: Status: Acute Assessment and Plan: 70yo M with cirrhosis with ascites, DM2, anemia, severe malnutrition recent admission 06/30-07/14/20 for anuric TREMAYNE with AGMA/NAGMA progressing to HD dependence 07/03/20 with hepatorenal syndrome, obstructive uropathy without hydronephrosis s/p bilateral ureteral stents re-admitted from SNF due to lethargy, decreased PO, FTT, gross hematuria in Ch, abdominal discomfort, fever Hematemesis and hematochezia, acute blood loss anemia Secondary to esophageal varices bleed Continue PPI, octreotide EGD 08/04 showing active Grade II varices with white nipple sign with 3 bands applied Patient rebled this AM, d/w GI, cannot scope now with hypotension, continue ppi, octreotide, bolus, monitor labs, d/w patients brother, grave prognosis continue conservative management moderate Ascites Abdominal pain refused tap Physical deconditioning Patient will need extensive rehabilitation physical therapy evaluation 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
--- NOTE | 2020-08-06 11:56 | MHC.CM.PN ---
nurse care support representative note electronic medical record reviewed along with case discussed with staff nurse and hospitalist per documentation patient and his hcp/brother met with the hospitalist for advance care planning :review of patients diagnosis , current hospitla stay and ongoing medical problems and goals of care.)patient per hospitalist and documentation has been decliningsince admission, decreased oral intake worsening ASCITIES AND RECENT ABDOMINAL PAIN BLOODY EMESIS AND IN STOOL . PATIENT EXPRESSED HE WANTS TO LIVE AND CONTINUE WITH HEMO DIALYSIS AT THIS TIME HE IS NOT READY FOR HOSPICE, AND BOTH PATIENT AND BROTHER HAVE AGREED TO MAKE HIM DNR/DNI DO NOT RESUSCITATE AND DO NOT INTUBATE. DURING THE NIGHT INCONTINENT OF STOOL WITH SOME BLOOD AND BLOODY CLOTS NOTED PER NURSING DOCUMENTATION AND REPORT OF BLOOD TINGED SPUTUM , BREATH SOUNDS DIMINISHED. CONTINUE TO FOLLOW FOR DISCHARGE NEEDS ANTICIPATE TO RETURN BACK [facility] WITH [facility] AT THE FACILITY SINCE PATIENTS INSURANCE CHANGED TO [facility] HE WILL NEED A PHYSICAL THEAPRY EVALUATION BEFORE REQUESTED BY [employer] , SINCE HIS CHANGE WITH INSRUANCES HE NO LONGER HAS A MEDICAIDE BED HOLD
[2020-08-06] MEDS: 0.9 % Sodium Chloride 1,000 ML 999 ML IVCONT ×2 (12:10→14:17)
[2020-08-06 12:11] LABS: Glucose, Whole Blood 81 mg/dL (60-115)
[2020-08-06] MEDS: cefTRIAXone sodium 1 GM in 0.9 % Sodium Chloride 50 ML IV (12:52)
[2020-08-06] MEDS: Pantoprazole Sodium 40 MG/10 ML VIAL IVPUSH (14:17)
[2020-08-06] MEDS: Octreotide Acetate 500 MCG in 0.9 % Sodium Chloride 500 ML 50.1 MCG IVCONT (14:20)
[2020-08-06] MEDS: Octreotide Acetate 100 MCG/ML AMPUL 50 MCG IVPUSH (14:33)
--- NOTE | 2020-08-06 15:02 | MHC.CLN ---
F/U PO INTAKE REMAINS POOR NOTED BLOODY STOOL X 2 PT REFUSED PARACENTESIS DIET RX: C/L-APPROPRIATE WILL ADD ENSURE CLEAR TID TO INCREASE KCALS FOLLOWING
--- NOTE | 2020-08-06 15:38 | PC.NURSE ---
0800 had mod amt rectal bleeding 1130 In dialysis, RN called and states BP is low. Mididrine given Dr Dsouza made aware of low BP Returned to floor BP cont to be very low. IV Bolus given 2 liters NS. 1430 No improvement of BP, Pt alert, pale, weak. Had lge amt rectal bleeding with clots. Witnessed by Dr Dsouza. IV Sandastatin started. infusing at 50ml/hr.
--- NOTE | 2020-08-06 16:00 | PC.NURSE ---
P patient is having bloody stools,incontinent I Dr. Motley aware E patient cleansed and protective cream applied
--- NOTE | 2020-08-06 16:07 | PC.NURSE ---
P low BP 76/40 taken manually by Thomas nursing supervisor joiners I Dr. Motley aware at bedside E-blood transfusion started as ordered
[2020-08-06 16:14] LABS: Glucose, Whole Blood 41 mg/dL (60-115)
[2020-08-06 16:14] LABS: Glucose, Whole Blood 42 mg/dL (60-115)
[2020-08-06 16:51] LABS: Glucose, Whole Blood 129 mg/dL (60-115)
--- NOTE | 2020-08-06 17:12 | PC.NURSE ---
patient is being seen by copper plater
--- NOTE | 2020-08-06 17:16 | P.PNGI_ITS ---
Subjective Subjective Date of Service: 08/06/20 Interval History: condition has worsened today confused had few bloody motions wt hypotension c/o diffuse abdo pain Physical Exam Vital Signs: Vital Signs: Last Vital Signs Temp 96.9 F 08/06/20 16:19 Pulse 90 08/06/20 16:43 Resp 18 08/06/20 16:19 BP 68/39 L 08/06/20 16:43 Pulse Ox 97 08/06/20 15:58 Body Mass Index 21.9 Const: General: confusion and ill appearing Nutritional Appearance: cachectic Orientation/consciousness: oriented to person, No oriented to place, No oriented to time and confusion Resp: Effort & Inspection: normal respiratory effort Cardio: Rhythm: regular rhythm Heart sounds: S1 normal heart sound present and S2 normal heart sound present GI: Inspection: Yes normal to inspection and Yes distended Palpation (GI): Soft to palpation, Tenderness to palpation present (GI), no guarding and not rigid Percussion: Yes dullness to percussion Auscultation: normal bowel sounds Skin: General skin exam: pallor and turgor decreased Neuro: General: oriented to person, No oriented to place, No oriented to time and confusion Extrem: General: Yes normal to inspection Objective Data Labs CBC & Chem 7: 08/06/20 05:54 08/06/20 05:54 Labs: Laboratory Results - last 24 hr 08/04/20 08/05/20 08/05/20 14:17 17:28 20:11 WBC RBC Hgb Hct MCV MCH MCHC RDW Plt Count MPV Absolute Nucleated RBC Nucleated RBC % (auto) Sodium Potassium Chloride Carbon Dioxide Anion Gap BUN Creatinine Estim Creat Clear Calc Estimated GFR POC Glucose 82 86 Random Glucose Calcium Blood Type O Positive Antibody Screen NEGATIVE Crossmatch See Detail 08/06/20 08/06/20 08/06/20 05:54 05:54 07:27 WBC 16.2 H RBC 2.40 L Hgb 7.3 L Hct 21.7 L MCV 90.4 MCH 30.4 MCHC 33.6 RDW 22.7 H Plt Count 94 L D MPV 11.7 Absolute Nucleated RBC 0.040 H Nucleated RBC % (auto) 0.2 Sodium 141 Potassium 3.6 Chloride 113 H Carbon Dioxide 12 L Anion Gap 20 BUN 47 H Creatinine 7.12 H* Estim Creat Clear Calc 8.1 Estimated GFR 8 POC Glucose 102 Random Glucose 86 Calcium 9.0 Blood Type Antibody Screen Crossmatch 08/06/20 08/06/20 08/06/20 12:06 16:07 16:09 WBC RBC Hgb Hct MCV MCH MCHC RDW Plt Count MPV Absolute Nucleated RBC Nucleated RBC % (auto) Sodium Potassium Chloride Carbon Dioxide Anion Gap BUN Creatinine Estim Creat Clear Calc Estimated GFR POC Glucose 81 42 L* 41 L* Random Glucose Calcium Blood Type Antibody Screen Crossmatch 08/06/20 16:47 WBC RBC Hgb Hct MCV MCH MCHC RDW Plt Count MPV Absolute Nucleated RBC Nucleated RBC % (auto) Sodium Potassium Chloride Carbon Dioxide Anion Gap BUN Creatinine Estim Creat Clear Calc Estimated GFR POC Glucose 129 H Random Glucose Calcium Blood Type Antibody Screen Crossmatch Microbiology Microbiology Results: Microbiology 07/23/20 15:17 Abdominal Fluid Gram Stain - Final 07/23/20 15:17 Abdominal Fluid Routine Culture - Final No growth after 2 days 07/23/20 15:17 Abdominal Fluid Anaerobic Culture - Final NO GROWTH AFTER 5 DAYS 07/20/20 14:44 Blood - Central Line Blood Culture - Final No growth after 5 days. 07/20/20 14:33 Blood - Central Line Blood Culture - Final No growth after 5 days. 07/18/20 10:54 Blood - Venous Blood Culture - Final No growth after 5 days. 07/18/20 10:41 Blood - Venous Blood Culture - Final No growth after 5 days. 07/18/20 13:34 Abdominal Fluid Gram Stain - Final 07/18/20 13:34 Abdominal Fluid Anaerobic Culture - Final NO GROWTH AFTER 5 DAYS 07/18/20 13:34 Abdominal Fluid Body Fluid Culture - Final No growth after 2 days 07/18/20 Unknown Urine clean catch - Clean Catch Midstream Urine Culture - Final Nevaeh albicans Progress Note: A&P Assessment and plan (1) GI bleed: Status: Acute Assessment and Plan: A/P; Recurrent Bleeding in setting of severe malnutrition, renal failure and liver failure s/p variceal banding and hemospray. He may have recurrent bleeding around the ligating bands or ulceration around the bands. may also be having a lower GI bleed from ischemia or extension of portal clot to SMV. Plan: 1/ If this is an upper GI bleed, further EGD at this time would be extremly high risk and ultimately may not change his dismal prognosis. Other option would be referral for TIPS, but again he may not survive this and could develop severe encephalopathy even if this were successful. 2/ Would recommend re discussing goals of care with family, if plan for ongoing interventions then will need consideration for pressors and further fluid and vol resus, would add octreotide and IV PPI BID 3/ May also need further imaging and doppler to check for thrombus extension to SMV or other path e.g bowel perf, ischemic colitis. A bleeding scan may also have to considered or CTA to help determine source if bleeding i.e lower vs upper GI Fall Risk Details Current Medications: Current Medications Generic Name Dose Route Start Last Admin Trade Name Freq PRN Reason Stop Dose Admin Ascorbic Acid 500 mg 07/19/20 09:00 08/06/20 11:33 Ascorbic Acid 500 Mg Tablet PO Not Given DAILY ROJAS Atorvastatin Calcium 40 mg 07/18/20 21:00 08/05/20 21:54 Atorvastatin Calcium 40 Mg Tablet PO 40 mg BEDTIME ROJAS Administration Ferrous Sulfate 324 mg 07/19/20 09:00 08/06/20 11:33 Ferrous Sulfate 324 Mg Tablet.Dr PO Not Given DAILY ROJAS Ceftriaxone Sodium 1 gm/ 50 mls @ 100 mls/hr 08/04/20 12:00 08/06/20 14:43 Sodium Chloride IV Infused Q24H ROJAS Infusion Octreotide Acetate 500 mcg/ 501 mls @ 50.1 mls/hr 08/06/20 12:15 08/06/20 14:20 Sodium Chloride IVCONT 08/08/20 12:14 50 mcg/hr .Q10H ROJAS 50.1 mls/hr Administration 50 MCG/HR Midodrine 20 mg 07/31/20 17:00 08/06/20 16:43 Midodrine Hcl 10 Mg Tablet PO 20 mg TIDWM ROJAS Administration Mirtazapine 7.5 mg 07/18/20 21:00 08/05/20 21:54 Mirtazapine 7.5 Mg Tablet PO 7.5 mg BEDTIME ROJAS Administration Morphine Sulfate 0.5 mg 08/05/20 14:17 Morphine Sulfate 2 Mg/Ml Cartridge IVPUSH Q4H PRN Pain, Severe (Pain Scale 7-10) Nystatin 1 appl 07/18/20 21:00 08/06/20 11:33 Nystatin Cream 15 Gm Tube TOPICAL Not Given BID [facility] Protocol Ondansetron HCl 4 mg 07/18/20 18:17 08/05/20 20:31 Ondansetron Hcl 4 Mg/2 Ml Vial IVPUSH 4 mg Q8H PRN Administration Nausea and Vomiting Pantoprazole Sodium 40 mg 08/06/20 11:30 08/06/20 16:38 Pantoprazole Sodium 40 Mg/10 Ml Vial IVPUSH Not Given BID@0630,1630 [facility] Pharmacy Consult 1 each 07/18/20 09:22 Consult Rx Perform Med Rec MISCELLANE ONCE PRN Consult order Sodium Bicarbonate 650 mg 07/18/20 21:00 08/06/20 14:25 Sodium Bicarbonate 650 Mg Tablet PO Not Given TID [facility] Sodium Chloride 3 ml 07/18/20 18:17 08/06/20 16:37 0.9 % Sodium Chloride Flush 3 Ml Syringe IVFLUSH 3 ml QSHIFT [facility] Administration Sucralfate 1 gm 07/18/20 18:17 08/06/20 16:39 Sucralfate Oral Suspension 1 Gm/10 Ml Oral.Susp PO Not Given QIDACHS [facility] Tamsulosin HCl 0.4 mg 07/18/20 21:00 08/05/20 21:54 Tamsulosin Hcl 0.4 Mg Capsule PO 0.4 mg BEDTIME [facility] Administration Vitamin D 50 mcg 07/19/20 09:00 08/06/20 11:33 Cholecalciferol (Vitamin D3) 25 Mcg Tablet PO Not Given DAILY [facility] Time Spent With Patient Time: Total time spent is greater than 50% in coordination of care (as documented) at patient's floor/unit and/or counseling patient: Time with patient: 15 - 24 minutes
--- NOTE | 2020-08-06 17:18 | P.CONCC_ITS ---
History of Present Illness Data of Consult Service Date: 08/06/20 Requesting physician: Calixto Motley Primary Care Provider: Sony Munoz MD HPI Asked by Dr. Motley to see Mr. Tidwell who is hypotensive with a variceal bleed. The patient is a 70 yo M with past medical history of cirrhosis with hepatorenal syndrome, started on HD on 07/03; DM; cachexia; and failure to thrive. Called to see him this afternoon to render an opinion on further care. The patient is having GI bleed, thought 2? varices (BRBPR with known varices). D/w family established DNR/DNI status. 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 Possible complicating social factors. I went up to see him on the third floor. On my brief exam, he is grossly cachectic and muttering incoherently. He looks cadaveric. HR was about 70-80, SBP by my manual measurement with the Doppler was betw 45-55. Blood was infusing through a right sided angio. IMPRESSION: By simple virtue of the fact that he has variceal bleeding and hepatorenal syndrome, his predicted 6-month mortality is very high. That does not take into account his cachectic state. He is currently having a presumed variceal bleed. In order to do a repeat EGD, he would require tracheal intubation. Survivability from that would be doubtful. Short of full invasive critical care management, there are things we could do (e.g. central line placement, pressors, aggressive blood monitoring and replacement, possibly high dose vasopressin, but I don't see him surviving all that at the end of the day. I advised Dr. Motley to advise the family that those measures would be significantly burdensome and uncomfortable for the patient, even tortorous, with doubtful benefit. Nonetheless, if the family wants those measures, we would oblige. An intermedi ate path would be blood transfusion w Octreotide, which is being done now. Dr. Motley is speaking with the family and will call back if the more aggressive road is chosen. 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 Type 2 diabetes mellitus with hyperglycemia Weakness Family History Family History Father Diabetes Mother Breast cancer Diabetes Cardiovascular disease Brother Diabetes Sister Diabetes Surgical History Surgical History History of liver biopsy Social History Social History Household Members: Family Housing: Apartment Alcohol intake: former Smoking Status: Former smoker Tobacco Type: Cigarette Packs Per Day: 2 Cigarettes Per Day: 40.0 Second Hand Smoke Exposure: No Advance Directives Date on File: 07/18/20 service: No Current occupational status: retired [employer] Allergies Allergy/AdvReac Type Severity Reaction Status Date / Time No Known Allergies Allergy Verified 08/04/20 12:51 Active Medications: Current Medications Generic Name Dose Route Start Last Admin Trade Name Jana PRN Reason Stop Dose Admin Ascorbic Acid 500 mg 07/19/20 09:00 08/06/20 11:33 Ascorbic Acid 500 Mg Tablet PO Not Given DAILY ROJAS Atorvastatin Calcium 40 mg 07/18/20 21:00 08/05/20 21:54 Atorvastatin Calcium 40 Mg Tablet PO 40 mg BEDTIME ROJAS Administration Ferrous Sulfate 324 mg 07/19/20 09:00 08/06/20 11:33 Ferrous Sulfate 324 Mg Tablet.Dr PO Not Given DAILY ROJAS Ceftriaxone Sodium 1 gm/ 50 mls @ 100 mls/hr 08/04/20 12:00 08/06/20 14:43 Sodium Chloride IV Infused Q24H ROJAS Infusion Octreotide Acetate 500 mcg/ 501 mls @ 50.1 mls/hr 08/06/20 12:15 08/06/20 14:20 Sodium Chloride IVCONT 08/08/20 12:14 50 mcg/hr .Q10H ROJAS 50.1 mls/hr Administration 50 MCG/HR Midodrine 20 mg 07/31/20 17:00 08/06/20 16:43 Midodrine Hcl 10 Mg Tablet PO 20 mg TIDWM ROJAS Administration Mirtazapine 7.5 mg 07/18/20 21:00 08/05/20 21:54 Mirtazapine 7.5 Mg Tablet PO 7.5 mg BEDTIME [facility] Administration Morphine Sulfate 0.5 mg 08/05/20 14:17 Morphine Sulfate 2 Mg/Ml Cartridge IVPUSH Q4H PRN Pain, Severe (Pain Scale 7-10) Nystatin 1 appl 07/18/20 21:00 08/06/20 11:33 Nystatin Cream 15 Gm Tube TOPICAL Not Given BID [facility] Protocol Ondansetron HCl 4 mg 07/18/20 18:17 08/05/20 20:31 Ondansetron Hcl 4 Mg/2 Ml Vial IVPUSH 4 mg Q8H PRN Administration Nausea and Vomiting Pantoprazole Sodium 40 mg 08/06/20 11:30 08/06/20 16:38 Pantoprazole Sodium 40 Mg/10 Ml Vial IVPUSH Not Given BID@0630,6640 [facility] Pharmacy Consult 1 each 07/18/20 09:22 Consult Rx Perform Med Rec MISCELLANE ONCE PRN Consult order Sodium Bicarbonate 650 mg 07/18/20 21:00 08/06/20 14:25 Sodium Bicarbonate 650 Mg Tablet PO Not Given TID [facility] Sodium Chloride 3 ml 07/18/20 18:17 08/06/20 16:37 0.9 % Sodium Chloride Flush 3 Ml Syringe IVFLUSH 3 ml QSHIFT [facility] Administration Sucralfate 1 gm 07/18/20 18:17 08/06/20 16:39 Sucralfate Oral Suspension 1 Gm/10 Ml Oral.Susp PO Not Given QIDACHS [facility] Tamsulosin HCl 0.4 mg 07/18/20 21:00 08/05/20 21:54 Tamsulosin Hcl 0.4 Mg Capsule PO 0.4 mg BEDTIME [facility] Administration Vitamin D 50 mcg 07/19/20 09:00 08/06/20 11:33 Cholecalciferol (Vitamin D3) 25 Mcg Tablet PO Not Given DAILY [facility] Home Medications Medication Instructions Recorded Confirmed Last Taken Type ascorbic acid (vitamin C) 500 mg 500 mg PO DAILY 02/19/20 07/18/20 07/17/20 History tablet cholecalciferol (vitamin D3) 50 50 mcg PO DAILY 02/19/20 07/18/20 07/17/20 History mcg (2,000 unit) tablet ferrous sulfate 325 mg (65 mg 325 mg PO DAILY 02/19/20 07/18/20 07/17/20 History iron) tablet tamsulosin 0.4 mg capsule 0.4 mg PO BEDTIME 02/19/20 07/18/20 07/17/20 History atorvastatin 40 mg tablet 40 mg PO BEDTIME tab 03/25/20 07/18/20 07/17/20 History insulin aspart U-100 [Novolog 6 unit SUBCUT TID 06/30/20 07/18/20 07/17/20 History Flexpen U-100 Insulin] sucralfate 10 ml PO QIDACHS 06/30/20 07/18/20 07/17/20 History empagliflozin [Jardiance] 25 mg PO DAILY 07/18/20 07/18/20 07/17/20 History insulin glargine [Semglee Pen 14 unit SUBCUT QAM 07/18/20 07/18/20 07/17/20 History U-100 Insulin] mirtazapine 7.5 mg PO BEDTIME 07/18/20 07/18/20 07/17/20 History nystatin 1 appl TOPICAL BID 07/18/20 07/18/20 07/17/20 History omeprazole 40 mg PO BID 07/18/20 07/18/20 07/17/20 History ondansetron HCl [Zofran] 4 mg PO Q8H PRN 07/18/20 07/18/20 Unknown History Physical Exam Vital Signs: Vital Signs: Last Vital Signs Temp 96.9 F 08/06/20 16:19 Pulse 90 08/06/20 16:43 Resp 18 08/06/20 16:19 BP 68/39 L 08/06/20 16:43 Pulse Ox 97 08/06/20 15:58 Body Mass Index 21.9 Results Labs CBC & Chem 7: 08/06/20 05:54 08/06/20 05:54 Labs: Short CBC 08/06/20 Range/Units 05:54 WBC 16.2 H (4.8-10.8) X10*3/uL Hgb 7.3 L (14.0-18.0) g/dl Hct 21.7 L (42-52) % Plt Count 94 L D (160-400) X10*3/uL BMP 08/06/20 05:54 Sodium 141 Potassium 3.6 Chloride 113 H Carbon Dioxide 12 L BUN 47 H Creatinine 7.12 H* Calcium 9.0 Microbiology Microbiology Results: Microbiology 03/31/21 15:17 Abdominal Fluid Gram Stain - Final 07/23/20 15:17 Abdominal Fluid Routine Culture - Final No growth after 2 days 07/23/20 15:17 Abdominal Fluid Anaerobic Culture - Final NO GROWTH AFTER 5 DAYS 07/20/20 14:44 Blood - Central Line Blood Culture - Final No growth after 5 days. 07/20/20 14:33 Blood - Central Line Blood Culture - Final No growth after 5 days. 07/18/20 10:54 Blood - Venous Blood Culture - Final No growth after 5 days. 07/18/20 10:41 Blood - Venous Blood Culture - Final No growth after 5 days. 07/18/20 13:34 Abdominal Fluid Gram Stain - Final 07/18/20 13:34 Abdominal Fluid Anaerobic Culture - Final NO GROWTH AFTER 5 DAYS 07/18/20 13:34 Abdominal Fluid Body Fluid Culture - Final No growth after 2 days 07/18/20 Unknown Urine clean catch - Clean Catch Midstream Urine Culture - Final Nevaeh albicans
--- NOTE | 2020-08-06 17:23 | W.MHC.ACPN ---
Advanced Care Planning Note Advanced Care Planning Note Discussed with: family member(s) Time spent (in minutes): 20 Narrative: Patient's status has declined. He started to have hematochezia/melena and severely hypotensive. This was discussed with patient's brother over the phone as he was unable to come back in. We discussed patient's poor prognosis. We discussed the patient was evaluated by intensive care unit and to maintain patient's blood pressure he would need to be on vasopressors which had potential for ischemic events without guarantee of survival. We also discussed option of making patient comfort care. However, brother has decided to continue to pursue conservative management without intensive care such as vasopressors, but is not ready to pursue comfort care. He would like to continue with blood transfusions, blood draws, octreotide. He understands that this has low chance of success. Patient will remain DNR DNI. Problems Discussed (1) TREMAYNE (acute kidney injury): (2) Hypotension: (3) Hematemesis: (4) Liver cirrhosis: (5) ESRD (end stage renal disease) on dialysis: (6) Frailty:
[2020-08-06] MEDS: Dextrose 5 % and 0.9 % NaCl 1,000 ML 80 ML IVCONT (17:59)
--- NOTE | 2020-08-06 19:01 | P.PNNP_ITS ---
Subjective Subjective Date of Service: 08/06/20 Interval history: Seen and examined. Evets noted had few bloody motions wt hypotension c/o diffuse abdo pain Physical Exam Vital Signs: Vital Signs: Last Vital Signs Temp 96.2 F L 08/06/20 18:05 Pulse 91 08/06/20 18:05 Resp 20 08/06/20 18:05 BP 72/47 L 08/06/20 18:05 Pulse Ox 96 08/06/20 18:05 Body Mass Index 21.9 Const: Other: Cachectic General: no acute distress, alert and awake; No acute distress HENMT: Head: Yes normocephalic and Yes atraumatic Neck: Neck: Yes supple and Yes no JVD Resp: Effort & Inspection: decreased respiratory effort Auscultation: diminished lung sounds Cardio: Rate: regular rate Heart sounds: S1 normal heart sound present, S2 normal heart sound present and no rubs GI: Other: Ascites + Inspection: Yes distended Palpation (GI): Soft to palpation and nontender Percussion: Yes Fluid wave present Neuro: General: moves all extremities Motor exam (neuro): no asterixis Extrem: General: Yes edema Objective Data Labs CBC & Chem 7: 08/06/20 05:54 08/06/20 05:54 Labs: Laboratory Results - last 24 hr 08/04/20 08/05/20 08/06/20 14:17 20:11 05:54 WBC 16.2 H RBC 2.40 L Hgb 7.3 L Hct 21.7 L MCV 90.4 MCH 30.4 MCHC 33.6 RDW 22.7 H Plt Count 94 L D MPV 11.7 Absolute Nucleated RBC 0.040 H Nucleated RBC % (auto) 0.2 Sodium Potassium Chloride Carbon Dioxide Anion Gap BUN Creatinine Estim Creat Clear Calc Estimated GFR POC Glucose 86 Random Glucose Calcium Blood Type O Positive Antibody Screen NEGATIVE Crossmatch See Detail 08/06/20 08/06/20 08/06/20 05:54 07:27 12:06 WBC RBC Hgb Hct MCV MCH MCHC RDW Plt Count MPV Absolute Nucleated RBC Nucleated RBC % (auto) Sodium 141 Potassium 3.6 Chloride 113 H Carbon Dioxide 12 L Anion Gap 20 BUN 47 H Creatinine 7.12 H* Estim Creat Clear Calc 8.1 Estimated GFR 8 POC Glucose 102 81 Random Glucose 86 Calcium 9.0 Blood Type Antibody Screen Crossmatch 04/14/21 04/14/21 04/14/21 16:07 16:09 16:47 WBC RBC Hgb Hct MCV MCH MCHC RDW Plt Count MPV Absolute Nucleated RBC Nucleated RBC % (auto) Sodium Potassium Chloride Carbon Dioxide Anion Gap BUN Creatinine Estim Creat Clear Calc Estimated GFR POC Glucose 42 L* 41 L* 129 H Random Glucose Calcium Blood Type Antibody Screen Crossmatch Microbiology Microbiology Results: Microbiology 07/23/20 15:17 Abdominal Fluid Gram Stain - Final 07/23/20 15:17 Abdominal Fluid Routine Culture - Final No growth after 2 days 07/23/20 15:17 Abdominal Fluid Anaerobic Culture - Final NO GROWTH AFTER 5 DAYS 07/20/20 14:44 Blood - Central Line Blood Culture - Final No growth after 5 days. 07/20/20 14:33 Blood - Central Line Blood Culture - Final No growth after 5 days. 07/18/20 10:54 Blood - Venous Blood Culture - Final No growth after 5 days. 07/18/20 10:41 Blood - Venous Blood Culture - Final No growth after 5 days. 07/18/20 13:34 Abdominal Fluid Gram Stain - Final 07/18/20 13:34 Abdominal Fluid Anaerobic Culture - Final NO GROWTH AFTER 5 DAYS 07/18/20 13:34 Abdominal Fluid Body Fluid Culture - Final No growth after 2 days 07/18/20 Unknown Urine clean catch - Clean Catch Midstream Urine Culture - Final Nevaeh albicans Assessment & Plan Assessment and plan (1) TREMAYNE (acute kidney injury): Status: Acute Assessment and Plan: TREMAYNE HD dependent: s/p kidney Bx which was surprisingly unrevealing...supect d/t HRS and ATN combination Hemoaccess issues: cont to pull out ESLD Ascites Incr WBC Anemia GOC: need to see if any change in GOC given severity of chronic med prob and his inability to comply with treatment..taking meds etc REC: cont HD as per his and family wishes but overall grim prognosis elizabeth now with GIB; consider DDAVP if cont active bleeding; cont to provide support to family and updates as overall grim prognsosis and redicuss GOC etc.. Time Spent With Patient Time: Total time spent is greater than 50% in coordination of care (as doc umented) at patient's floor/unit and/or counseling patient:
[2020-08-06 20:16] LABS: Glucose, Whole Blood 107 mg/dL (60-115)
[2020-08-06] MEDS: Nystatin Cream 15 GM TUBE 1 APPL TOPICAL (20:32)
--- NOTE | 2020-08-06 23:05 | PC.NURSE ---
Addendum entered by Sisi Rocha RN 08/06/20 23:33: E patient will be transferred to ICU Original Note: P patient received 2 units of blood ,BP remains low 65/37 pulse 80,patient continue to have bloody stools I Dr. Sumner notified E will monitor
[2020-08-06 23:59] LABS: Basophils Absolute Auto 0.1 X10*3/uL (0.0-0.2); Basophils Percent Auto 0.4 % (0-2); Eosinophils Percent Auto 0.2 % (0-4); Imm Gran Abs Auto 0.11 X10*3/uL (0.00-0.03); Imm Gran Pct Auto 0.9 % (0.0-0.4); Lymphocytes Absolute Auto 1.3 X10*3/uL (1.2-4.9); Lymphocytes Percent Auto 10.4 % (20-40); MANUAL DIFF FLAG SCAN; Mean Corpuscular HGB Conc 33.3 g/dl (31.0-36.0); Mean Corpuscular Hemoglobin 31.4 pg (27.0-33.0); Mean Corpuscular Volume 94.2 fL (80-98); Mean Platelet Volume 12.7 fL (9.4-12.4); Monocytes Absolute Auto 0.4 X10*3/uL (0.1-1.2); Monocytes Percent Auto 3.4 % (2-11); NRBC Pct Auto 0.9 /100WBC (0.0-0.2); Neutrophils Absolute Auto 10.9 X10*3/uL (2.0-8.3); Neutrophils Percent Auto 84.7 % (45-73); Red Blood Count 1.91 X10*6/uL (4.60-5.80); Red Cell Distribution Width 17.5 % (11.0-16.0); SCAN SMEAR FLAG 1; White Blood Count 12.8 X10*3/uL (4.8-10.8)
[2020-08-07] VITALS: BP 79/45; PULSE 82; RESP 16; TEMP 36; O2SAT 94
[2020-08-07 00:01] LABS: Platelet Count 49 X10*3/uL (160-400)
--- NOTE | 2020-08-07 00:16 | W.MHC.ACPN ---
Advanced Care Planning Note Advanced Care Planning Note Discussed with: family member(s) (Pt's brother) Time spent (in minutes): 15 Narrative: At 1201 am on 08/07/2020 after discussing the case with the hospitalist, reviewing the patient's chart, notes, I had noticed that an advance care planning note by noted the discussion with the patient's brother earlier on who at the time had decided to continue to pursue conservative management without intensive care such as basal pressors, but was not ready to pursue comfort care at the time. I was informed that the patient was continuing to bleed and he had a systolic blood pressure of 65, therefore I was consulted to transfer this patient to the intensive care unit. I called back the patient's brother Mr Rasta Tidwell and discussed the clinical scenario with him, in light of everything, at this point he has decided to make the patient comfort measures only. This was repeated and confirmed by 1 of my nurses Leyda from ICU, at this point, the code status will be changed to DESK LIEUTENANT. The above-mentioned information was discussed with hospitalist Dr Brink. Case was discussed in detail with Dr. Mackenzie. He is aware of all the above as well as the plan of care for this patient. Problems Discussed (1) TREMAYNE (acute kidney injury):
[2020-08-07 00:29] LABS: SLIDE REVIEW VERIFIED
[2020-08-07] MEDS: Octreotide Acetate 500 MCG in 0.9 % Sodium Chloride 500 ML 50.1 MCG IVCONT (00:35)
[2020-08-07 01:24] VITALS: BP 68/53; PULSE 80; RESP 18; TEMP 35.7
[2020-08-07 01:40] VITALS: BP 61/53; PULSE 82; RESP 18; TEMP 35.7
[2020-08-07 02:03] VITALS: BP 69/34; PULSE 77; RESP 18; TEMP 35.6
[2020-08-07] MEDS: Morphine Sulfate 2 MG/ML CARTRIDGE 0.5 MG IVPUSH (02:07)
[2020-08-07 03:47] VITALS: BP 80/41; PULSE 81; RESP 16; TEMP 36.1; O2SAT 100
--- NOTE | 2020-08-07 04:44 | PC.NURSE ---
PATIENT WITH STATUS CHANGE; RECEIVED REPORT FROM 3-11 RN, PT WITH LOW HH, LOW BP, AND INCONTINENT OF MODERATE SOFT STOOLS WITH BLOOD AND CLOTS. HOSPITALIST UPDATED BY 3-11 RN AFTER 2 UNITS OF BLOOD AND IVFS SHOWING NI CHANGES. HOSPITALIST MADE DECISION TO TRANSFER TO ICU AND THEN ENVIRONMENTAL PLANNING ENGINEER WAS CONSULTED AND HE CONTACTED FAMILY, SPOKE TO PTS BROTHER AND DETERMINED PT TO CHANGE TO COMFORT MEASURES ONLY AND LEAVE ON MED SURG UNIT. PT TRANSFUSED WITH ONE UNIT FFP BY THIS CISCO ADMINISTRATOR AND HOSPITALIST WAS UPDATED VERBALLY WHEN NOTED ON UNIT. NO MORE RBCS TO BE TRANSFUSED AND MD MADE AWARE STILL WITH LOW BP AND ALSO 3 SHOWINGS OF MODERATE LOOSE STOOL, MOSTLY ALL BLOOD WITH CLOTS PRESENT. SKIN CARE PROVIDED, FOAM DSG AT COCCYX AND MID BACK. REDNESS AND FRAGILE SKIN TO BUTTOCKS AND BARRIER CREAM APPLIED. BP IN THE 68/53 RANGE. PT MEDICATED FOR PAIN, MOANING WITH POSITION CHANGE AND CARE WITH MORPHINE ORDERED AT 0210 WITH NOTED EFFECT, PT ABLE TO NAP. IVF AND ORDERED OCREOTIDE INFUSING ORDERED. WILL CONTINUE TO MONITOR CLOSELY
[2020-08-07] MEDS: Pantoprazole Sodium 40 MG/10 ML VIAL IVPUSH (06:33)
[2020-08-07 06:39] LABS: Basophils Percent Auto 0.2 % (0-2); Eosinophils Absolute Auto 0.1 X10*3/uL (0.0-0.4); Eosinophils Percent Auto 0.5 % (0-4); Imm Gran Abs Auto 0.08 X10*3/uL (0.00-0.03); Imm Gran Pct Auto 0.7 % (0.0-0.4); Lymphocytes Absolute Auto 1.2 X10*3/uL (1.2-4.9); MANUAL DIFF FLAG SCAN; Mean Corpuscular HGB Conc 33.3 g/dl (31.0-36.0); Mean Corpuscular Hemoglobin 31.7 pg (27.0-33.0); Mean Corpuscular Volume 95.1 fL (80-98); Mean Platelet Volume 12.2 fL (9.4-12.4); Monocytes Absolute Auto 0.5 X10*3/uL (0.1-1.2); Monocytes Percent Auto 4.1 % (2-11); Neutrophils Absolute Auto 10.2 X10*3/uL (2.0-8.3); Neutrophils Percent Auto 84.5 % (45-73); Red Blood Count 1.42 X10*6/uL (4.60-5.80); Red Cell Distribution Width 17.4 % (11.0-16.0); SCAN SMEAR FLAG 1; White Blood Count 12.1 X10*3/uL (4.8-10.8)
[2020-08-07 06:40] LABS: INTERNATIONAL NORM RATIO 1.3 (0.9-1.1); Prothrombin Time 15.4 SEC (10.8-13.0)
[2020-08-07 07:06] LABS: Alanine Aminotransferase 17 U/L (0-40); Albumin Level 2.1 g/dL (3.5-5.0); Alkaline Phosphatase 411 U/L (39-117); Aspartate Amino Transferase 97 U/L (5-37); Bilirubin Direct 2.1 mg/dL (0.0-0.5); Bilirubin Total 2.5 mg/dL (0.0-1.0); Blood Urea Nitrogen 22 mg/dL (9-16); Creatinine Clr Calc Pharmacy 16.2; Estimated Glomerular Filt Rate 17; Glucose Fasting 163 mg/dL (60-99); Total Protein 4.2 g/dL (6.5-8.0)
[2020-08-07 07:18] LABS: Anion Gap 26 (12-20); Calcium 6.7 mg/dL (8.4-10.2); Carbon Dioxide 9 mmol/L (22-29); Chloride 110 mmol/L (96-108); Potassium 3.1 mmol/L (3.3-5.1); Sodium 142 mmol/L (135-145)
[2020-08-07 07:19] LABS: NRBC Pct Auto 1.2 /100WBC (0.0-0.2); Platelet Count 39 X10*3/uL (160-400)
[2020-08-07 07:20] LABS: Hematocrit 13.5 % (42-52); Hemoglobin 4.5 g/dl (14.0-18.0)
--- NOTE | 2020-08-07 07:27 | PC.NURSE ---
PATIENT CONTINUES WITH LOW BP, SEE CHARTING, HE IS AWAKE, CO-OP, BUT VERY WEAK. INCONTINENT OF TOTAL 4 MODERATE TO LARGE SHOWINGS OF SMALL AMOUNTS OF STOOL AND LARGE AMOUNTS MURPHY BLOOD WITH SEVERAL GELATINOUS CLOTS EACH TIME. HOSPITALIST UPDATED APPROX., 0530, ASKED IF HE WAS COMFORTABLE AND EXPLAINED HE WAS NAPPING ON AND OFF, NO S/SX RESP DISTRESS, AND EASILY AWAKENED AND TALKING. HOSPITALIST STATED TO KEEP HIM COMFORTABLE. AM HOSPITALIST ON FLOOR APPROX., 0645, HE WAS UPDATED AND WILL CONFER WITH CO MD AND SINGLE END SEWER FOR FURTHER ORDERS AND PROCESS COMPTROLLER ORDERS.HE ALSO SPOKE WITH DAY RN TAKING OVER AND TOLD HER HE WOULD BE IN TOUCH. WILL CONT TO MONITOR
--- NOTE | 2020-08-07 11:37 | P.PNIM_ITS ---
Subjective Subjective Date of Service: 08/07/20 Interval History: had abdomianl pain this morning, in afternoon improved after increased morphine, Cardiovascular Cardiovascular: Reports no additional cardiovascular complaints Respiratory Respiratory: Reports no additional respiratory complaints Physical Exam Vital Signs: Vital Signs: Last Vital Signs Temp 96.9 F 08/07/20 03:47 Pulse 81 08/07/20 03:47 Resp 16 08/07/20 03:47 BP 80/41 L 08/07/20 03:47 Pulse Ox 100 08/07/20 03:47 Body Mass Index 21.9 General: Alert, disoriented, ill appearing, in AM appeared in pain, in PM more antsy, less pain Resp: diminshed CVS: S1,S2,RRR GI: soft, non tender, non distended Neuro: motor grossly intact Psych: confused Objective Data Current Medications Generic Name Dose Route Start Last Admin Trade Name Freq PRN Reason Stop Dose Admin Lorazepam 1 mg 08/07/20 07:07 Lorazepam 2 Mg/Ml Vial IVPUSH Q1H PRN anxiety Morphine Sulfate 1 mg 08/07/20 07:07 Morphine Sulfate 2 Mg/Ml Cartridge IVPUSH Q1H PRN Pain, Severe (Pain Scale 7-10) Sodium Chloride 3 ml 07/18/20 18:17 08/07/20 09:27 0.9 % Sodium Chloride Flush 3 Ml Syringe IVFLUSH Not Given QSHIFT [facility] Labs CBC & Chem 7: 08/07/20 06:06 08/07/20 06:06 Microbiology Microbiology Results: Microbiology 07/23/20 15:17 Abdominal Fluid Gram Stain - Final 07/23/20 15:17 Abdominal Fluid Routine Culture - Final No growth after 2 days 07/23/20 15:17 Abdominal Fluid Anaerobic Culture - Final NO GROWTH AFTER 5 DAYS 07/20/20 14:44 Blood - Central Line Blood Culture - Final No growth after 5 days. 07/20/20 14:33 Blood - Central Line Blood Culture - Final No growth after 5 days. 07/18/20 10:54 Blood - Venous Blood Culture - Final No growth after 5 days. 07/18/20 10:41 Blood - Venous Blood Culture - Final No growth after 5 days. 07/18/20 13:34 Abdominal Fluid Gram Stain - Final 07/18/20 13:34 Abdominal Fluid Anaerobic Culture - Final NO GROWTH AFTER 5 DAYS 07/18/20 13:34 Abdominal Fluid Body Fluid Culture - Final No growth after 2 days 07/18/20 Unknown Urine clean catch - Clean Catch Midstream Urine Culture - Final Nevaeh albicans Assessment and Plan (1) TREMAYNE (acute kidney injury): Status: Acute (2) Hypotension: Status: Acute (3) Hematemesis: Status: Acute (4) Liver cirrhosis: Status: Acute (5) ESRD (end stage renal disease) on dialysis: Status: Acute (6) Frailty: Status: Acute Assessment and Plan: 70yo M with cirrhosis with ascites, DM2, anemia, severe malnutrition recent admission 06/30-07/14/20 for anuric TREMAYNE with AGMA/NAGMA progressing to HD d ependence 07/03/20 with hepatorenal syndrome, obstructive uropathy without hydronephrosis s/p bilateral ureteral stents re-admitted from SNF due to lethargy, decreased PO, FTT, gross hematuria in [place], abdominal discomfort, fever on 08/06/20 was hypotensive with melena, decision was made to change to [employer] status Hematemesis and hematochezia, acute blood loss anemia Secondary to esophageal varices bleed in patient with HCV cirrhosis, right portal vein thrombosus, possible HCC, complicated by hepatorenal requiring HD and FTT. now [employer] increased morphine to 1mg q1hprn, and added ativan, more comfortable, will continue to titrate to comfort
--- NOTE | 2020-08-07 15:40 | MHC.CM.PN ---
NURSE CARE PAIN DIRECTOR PRIVATE MUSIC THERAPY AGENCY NOTE ELECTRONIC MEDICAL RECORD REVIEWED ALONG WITH CASE DISCUSSED WITH STAFF NURSE AND HOSPITALIST , PATIENTS BLOOD PRESSURE SIGNIFICANTLY DROPPED ADVANCED CARE PLANNING WITH PATIENT AND BROTHER, AND THE DECISION WAS MADE TO MAKE PATIENT COMFORT MEASURES ONLY,PATIENT WILL CONTONUE TO GET IV ANALGEICS FOR PAIN MANAGEMENT AND IV ANTIANXIETIES. QUANTITATIVE ANALYST WILL CONTINUE TO FOLLOW FOR EMOTIONAL SUPPORT TO PATIENT AND HIS FAMILY MEDICATIONS
[2020-08-07] MEDS: 0.9 % Sodium Chloride Flush 3 ML SYRINGE IVFLUSH (16:11)
--- NOTE | 2020-08-07 17:19 | PM.DDS ---
Discharge Sum: Prov Provider Primary care physician: Sony Munoz MD Consults: 07/18/20 13:40 Consult to Nephrology Routine Consulting Provider: Cricket Horan Reason for consultation: CKD, HD 07/19/20 09:25 Consult to Infectious Diseases Routine Consulting Provider: Mary Tsang Reason for consultation: Fever on unknown origin 07/20/20 09:02 Consult to Urology Routine Consulting Provider: Filipe Dos Santos III Reason for consultation: hematuria liu 07/22/20 11:31 Consult to Care Team Routine Comment: Reason for consultation: depression 07/23/20 11:09 Consult to Gastroenterology Routine Consulting Provider: Galina Brody Reason for consultation: advanced liver dis , ascitis , hepatorenal 07/27/20 12:58 Consult to Wound Care Routine Consulting Provider: Yamini Flores Reason for consultation: ? buttock area pressure soar Has provider been notified: No Discharge Sum: Diag Contributing Factors (1) TREMAYNE (acute kidney injury): (2) Hypotension: (3) Hematemesis: (4) Liver cirrhosis: (5) ESRD (end stage renal disease) on dialysis: (6) Frailty: Discharge Sum: Summary Date and Time Date of admission: 07/18/20 16:03 Summary Details: 70yo M with cirrhosis with ascites, DM2, anemia, severe malnutrition recent admission 06/30-07/14/20 for anuric TREMAYNE with AGMA/NAGMA progressing to HD dependence 07/03/20 with hepatorenal syndrome, obstructive uropathy without hydronephrosis s/p bilateral ureteral stents re-admitted from SNF due to lethargy, decreased PO, FTT, gross hematuria in [place], abdominal discomfort, fever Course was complicated by hematemesis and melena due to variceal bleeding. Patient initially underwent EGD and banding. But then had further bleeding and hypotension. Due to poor prognosis decision was made to make patient Comfort measures only. he peacefully on august 07, 2020 at 515pm Additional Data Attending physician: Calixto Motley MD
--- NOTE | 2020-08-07 18:11 | PC.NURSE ---
1655 pt found with no resp no pulse. notified.pronounced pt at 1715.[employer] called.pt was declined by [facility] ref#[id number].brother sarahi called no answer left message to call back.called son amy got busy signal.
== END 2020-08-07 17:15 | disposition expired | DRG 673 ==
LOC: HO.ED 09:25 → HO.EDOVER 16:10 → HO.S3 17:04
PROVIDERS: Family Medicine; Hospitalist; Internal Medicine; Internal Medicine Gastroenterology; Physician Assistant; Radiology Diagnostic Radiology; Student in an Organized Health Care Education/Training Program; Admitting Provider Internal Medicine; Emergency Provider Emergency Medicine Emergency Medical Services; PCP Family Medicine; Visit Provider Internal Medicine
PROC: 0JH63XZ Insertion of Tunneled Vascular Access Device into Chest Subcutaneous Tissue and Fascia, Percutaneous Approach (ICD-10-PCS; principal; 2020-08-01 16:00)
PROC: 0DJ08ZZ Inspection of Upper Intestinal Tract, Via Natural or Artificial Opening Endoscopic (ICD-10-PCS; CPT 43235; principal; 2020-08-04 13:30)
PROC: 0J2SXYZ Change Other Device in Head and Neck Subcutaneous Tissue and Fascia, External Approach (ICD-10-PCS; principal; 2020-08-05 11:30)
DX: I12.0 Hypertensive chronic kidney disease with stage 5 chronic kidney disease or end stage renal disease (principal); N17.0 Acute kidney failure with tubular necrosis; E43 Unspecified severe protein-calorie malnutrition; I85.11 Secondary esophageal varices with bleeding; N18.6 End stage renal disease; N39.0 Urinary tract infection, site not specified; R18.8 Other ascites; E87.2 Acidosis; R45.851 Suicidal ideations; D68.9 Coagulation defect, unspecified; F05 Delirium due to known physiological condition; D62 Acute posthemorrhagic anemia; R62.7 Adult failure to thrive; Z68.21 Body mass index [BMI] 21.0-21.9, adult; R31.9 Hematuria, unspecified; K74.60 Unspecified cirrhosis of liver; E87.6 Hypokalemia; E11.649 Type 2 diabetes mellitus with hypoglycemia without coma; F32.9 Major depressive disorder, single episode, unspecified; E11.22 Type 2 diabetes mellitus with diabetic chronic kidney disease; D63.1 Anemia in chronic kidney disease; I95.9 Hypotension, unspecified; Z20.822 Contact with and (suspected) exposure to COVID-19; Z99.2 Dependence on renal dialysis; F17.210 Nicotine dependence, cigarettes, uncomplicated; Z71.6 Tobacco abuse counseling; Z79.4 Long term (current) use of insulin; Z79.899 Other long term (current) drug therapy; Z51.5 Encounter for palliative care
CPT/HCPCS: 0241U; 36415; 36558; 49083; 71045; 74176; 74177; 74183; 76705; 80048; 80053; 80076; 81001; 81003; 82105; 82607; 82728; 82746; 82945; 82947; 83036; 83540; 83605; 83615; 83690; 83735; 84132; 84157; 85014; 85018; 85025; 85027; 85610; 85730; 86850; 86900; 86923; 87040; 87070; 87071; 87073; 87086; 87088; 87205; 87324; 87389; 87449; 87635; 88112; 89051; 90999; 93005; 96365; 96368; 97162; 99152; 99153; 99285; A9585; C1729; C1750; C1752; C1769; J0696; J2270; J2354; J2370; J2405; J2543; J3010; J3370; J3430; P9016; P9017; P9040; P9047; Q9967

== ENCOUNTER 2020-07-21 00:36 | Outpatient (REF) | payer SELFPAY | END 2020-07-21 00:37 | disposition home or self-care (01) | LOC: HO.MMNH1L 00:36 | PROVIDERS: Visit Provider Family Medicine | DX: Z13.89 Encounter for screening for other disorder (principal) ==

== ENCOUNTER → 2020-08-04 | Day surgery (SDC) | payer OTHER, MEDICAID, SELFPAY ==
--- NOTE | 2020-07-31 14:12 | P.CONAN_ITS ---
HPI - Anesthesia Eval Consult details Narrative: 70yo M for Upper Endoscopy [facility] Active Problems Active Problems: All Active Problems (Updated 07/31/20 @ 14:05 by Gurmeet Mcgraw MD) Candidal dermatitis (Acute) Liver cirrhosis (Acute) Fever (Acute) Hypokalemia (Acute) TREMAYNE (acute kidney injury) (Acute) Fever (Acute) Anemia in chronic kidney disease (Acute) ESRD (end stage renal disease) on dialysis (Acute) Hepatorenal failure (Acute) Weakness (Acute) Frailty (Acute) Severe malnutrition (Acute) Metabolic acidosis (Acute) GI bleed (Acute) Acute renal failure (Acute) Acute dehydration (Acute) Adult failure to thrive (Acute) Ascites (Acute) 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 (Acute) Hyperlipidemia LDL goal <100 (Acute) Essential hypertension (Acute) Diarrhea (Acute) Past Medical History Medical History Anemia Anemia in chronic kidney disease Ascites Cirrhosis Esophageal varices ESRD (end stage renal disease) on dialysis Essential hypertension Frailty GERD (gastroesophageal reflux disease) GI bleed Hyperlipidemia LDL goal <100 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 Type 2 diabetes mellitus with hyperglycemia Weakness Family History Family History Father Diabetes Mother Breast cancer Diabetes Cardiovascular disease Brother Diabetes Sister Diabetes Surgical History Surgical History History of liver biopsy Social History Social History Household Members: Family Housing: Apartment Alcohol intake: former Smoking Status: Former smoker Tobacco Type: Cigarette Packs Per Day: 2 Cigarettes Per Day: 40.0 Second Hand Smoke Exposure: No Advance Directives Date on File: 07/18/20 service: No Current occupational status: retired Meds Allergies Allergy/AdvReac Type Severity Reaction Status Date / Time No Known Allergies Allergy Verified 08/04/20 12:51 Home Medications Medication Instructions Recorded Confirmed Last Taken Type ascorbic acid (vitamin C) 500 mg 500 mg PO DAILY 02/19/20 07/18/20 07/17/20 History tablet cholecalciferol (vitamin D3) 50 50 mcg PO DAILY 10/07/18/20 07/17/20 History mcg (2,000 unit) tablet ferrous sulfate 325 mg (65 mg 325 mg PO DAILY 02/19/20 07/18/20 07/17/20 History iron) tablet tamsulosin 0.4 mg capsule 0.4 mg PO BEDTIME 02/19/20 07/18/20 07/17/20 History atorvastatin 40 mg tablet 40 mg PO BEDTIME tab 03/25/20 07/18/20 07/17/20 History insulin aspart U-100 [Novolog 6 unit SUBCUT TID 06/30/20 07/18/20 07/17/20 History Flexpen U-100 Insulin] sucralfate 10 ml PO QIDACHS 06/30/20 07/18/20 07/17/20 History empagliflozin [Jardiance] 25 mg PO DAILY 07/18/20 07/18/20 07/17/20 History insulin glargine [Semglee Pen 14 unit SUBCUT QAM 07/18/20 07/18/20 07/17/20 History U-100 Insulin] mirtazapine 7.5 mg PO BEDTIME 07/18/20 07/18/20 07/17/20 History nystatin 1 appl TOPICAL BID 07/18/20 07/18/20 07/17/20 History omeprazole 40 mg PO BID 07/18/20 07/18/20 07/17/20 History ondansetron HCl [Zofran] 4 mg PO Q8H PRN 07/18/20 07/18/20 Unknown History Exam Exam Date and Time: July 31, 2020 8116
--- NOTE | ~2020-08-04 | IR_ITS ---
EXAMINATION: IR ULTRASOUND GUIDANCE FOR VENOUS ACCESS Real-time ultrasound guidance was used to document vein patency and for needle entry into the right internal jugular vein. A formal ultrasound picture was recorded.
== END ==
PROVIDERS: Visit Provider Internal Medicine Gastroenterology
DX: I85.00 Esophageal varices without bleeding (principal); Z53.8 Procedure and treatment not carried out for other reasons
CPT/HCPCS: 76937